=== PATIENT | male | born 1970 | race Caucasian/White ===

== ENCOUNTER 2017-11-28 19:58 | Emergency (ER) | payer MEDICARE, OTHER ==
[~2017-11-28] VITALS: Ht 182.9 cm; Wt 104.3 kg
[2017-11-28] MEDS ORDERED: GABAPENTIN300 MG PO (20:14)
[2017-11-28] MEDS ORDERED: LOSARTAN POTASS50 MG PO (20:14)
[2017-11-28] MEDS ORDERED: ATORVASTATIN CA40 MG PO (20:14)
[2017-11-28] MEDS ORDERED: METOPROLOL TAR100 MG PO (20:15)
[2017-11-28] MEDS ORDERED: HYDROCHLOROTH12.5 M1 PO (20:16)
[2017-11-28] MEDS ORDERED: SENSIPAR30 MG PO (20:16)
[2017-11-28] MEDS ORDERED: CLOPIDOGREL75 MG PO (20:16)
[2017-11-28] MEDS ORDERED: LEVOTHYROXINE112 MCG PO (20:16)
[2017-11-28] MEDS ORDERED: MYCOPHENOLATE PO (20:18)
[2017-11-28] MEDS ORDERED: PROGRAF1 MG PO (20:19)
[2017-11-28] MEDS ORDERED: SLOW-MAG71.5 MG PO (20:20)
== END 2017-11-28 20:59 | disposition home or self-care (01) ==
LOC: ED 19:58
DX: R60.0 Localized edema (principal); Z87.891 Personal history of nicotine dependence; Z88.0 Allergy status to penicillin; Z88.8 Allergy status to other drugs, medicaments and biological substances; E11.42 Type 2 diabetes mellitus with diabetic polyneuropathy; Z79.899 Other long term (current) drug therapy
CPT/HCPCS: 93971; 99283

== ENCOUNTER 2019-10-28 15:09 | Emergency (ER) | payer MEDICARE, OTHER ==
[~2019-10-28] VITALS: Ht 182.9 cm; Wt 104.3 kg
--- OUTSIDE RECORDS SUMMARY | ~2019-10-28 | XMS | Encounter Summary ---
Demographics + + + | Address | [address] | | | [place] [address] | + + + | Home Phone | | + + + | Preferred Language | Unknown | + + + | Marital Status | | + + + | Faith Affiliation | 1013 | + + + | Race | Unknown | + + + | Ethnic Group | Unknown | + + + Author + + + | Author | [facility] | | | and [place] | + + + | Organization | [facility] | | | and [place] | + + + | Address | Unknown | + + + | Phone | Unavailable | + + + Support + + + + + | Name | Relationship | Address | Phone | + + + + + | Deysi Montelongo | ECON | [address] | | | | | [address] | | | | | [address] | | + + + + + | Ellen Rogers | ECON | [address] | | | | | [place] | | + + + + + | Gisell Rogers | ECON | Unknown | | + + + + + Care Team Providers + +------+ + | Care Analog Ic Design Engineer Name | Role | Phone | + +------+ + | Lizbet Sellers MD | PCP | | + +------+ + Encounter Details +--------+ + + + + | Date | Type | Department | Care Team | Description | +--------+ + + + + | 06/12/ | Orders Only | [facility] | Conversion | | | 2019 | | NEPHROLOGY [place] | Transaction, | | | | | [address] [facility] | Provider Unknown | | | | | [address] [place], [place] | | | | | | [address] | (Fax) | | | | | [phone] | | | +--------+ + + + + Social History + + + +--------+ + | Tobacco Use | Types | Packs/Day | Years | Date | | | | | Used | | + + + +--------+ + | Former Smoker | Cigarettes | | 25 | Quit: 04/23/2011 | + + + +--------+ + + +------+---+ + | Smokeless Tobacco: | Chew | | Quit: | | Former User | | | 04/23/19 | | | | | 02 | + +------+---+ + + + +---------+ + | Alcohol Use | Drinks/Week | oz/Week | Comments | + + +---------+ + | No | | | | + + +---------+ + + + + | Sex Assigned at | Date Recorded | | | | + + + | Not on file | | + + + documented as of this encounter Plan of Treatment +--------+---------+ + + + | Date | Type | Specialty | Care Team | Description | +--------+---------+ + + + | 01/04/ | Office | Nephrology | Jaren Pelayo MD | | | 2020 | Visit | | [address] [facility] | | | | | | [address] [facility] [place] | | | | | | [address] | | | | | | | | +--------+---------+ + + + documented as of this encounter Procedures + +--------+ + + + | Procedure Name | Priori | Date/Time | Associated Diagnosis | Comments | | | ty | | | | + +--------+ + + + | EXTERNAL LAB: | Routin | 06/12/2018 | | Results for this | | TACROLIMUS LEVEL, | e | 11:10 AM | | procedure are in the | | LC-MS/MS | | PST | | results section. | + +--------+ + + + | EXTERNAL LAB: CBC | Routin | 06/12/2018 | | Results for this | | | e | 11:10 AM | | procedure are in the | | | | PST | | results section. | + +--------+ + + + | PARATHYROID HORMONE, | Routin | 06/12/2018 | | Results for this | | INTACT | e | 11:10 AM | | procedure are in the | | | | PST | | results section. | + +--------+ + + + | MAGNESIUM | Routin | 06/12/2018 | | Results for this | | | e | 11:10 AM | | procedure are in the | | | | PST | | results section. | + +--------+ + + + | RENAL FUNCTION PANEL | Routin | 06/12/2018 | | Results for this | | | e | 11:10 AM | | procedure are in the | | | | PST | | results section. | + +--------+ + + + documented in this encounter Results External Lab: Tacrolimus Level, LC-MS/MS (06/12/2018 11:10 AM PST) + +-------+ + + + | Component | Value | Ref Range | Performed | Pathologist | | | | | At | Signature | + +-------+ + + + | Tacrolimus | 6.2 | | EXTERNAL | | | Level | | | LAB | | + +-------+ + + + | Date of | | | EXTERNAL | | | Last Dose | | | LAB | | + +-------+ + + + | Time of | | | EXTERNAL | | | Last Dose | | | LAB | | + +-------+ + + + + + | Specimen | + + | Blood specimen | | (specimen) | + + + +---------+ + + | Performing | Address | City/State/Zipcode | Phone Number | | Organization | | | | + +---------+ + + | EXTERNAL LAB | | | | + +---------+ + + External Lab: CBC (06/12/2018 11:10 AM PST) + +--------+ + + + | Component | Value | Ref Range | Performed | Pathologist | | | | | At | Signature | + +--------+ + + + | WBC | 6.9 | 4.5 - 11.0 10 | EXTERNAL | | | | | | LAB | | + +--------+ + + + | Non- | 4.83 | 4.3 - 5.7 10 | EXTERNAL | | | Red Blood | | | LAB | | | Cells | | | | | | Counted | | | | | + +--------+ + + + | Hemoglobin | 14.1 | 13.5 - 18.0 | EXTERNAL | | | | | g/dL | LAB | | + +--------+ + + + | Hematocrit, | 43.8 | 41 - 50 % | EXTERNAL | | | POC | | | LAB | | + +--------+ + + + | MCV | 90.7 | 81 - 99 fL | EXTERNAL | | | | | | LAB | | + +--------+ + + + | MCH | 29 | 27 - 33 pg | EXTERNAL | | | | | | LAB | | + +--------+ + + + | MCHC | 32 | 30 - 36 g/dL | EXTERNAL | | | | | | LAB | | + +--------+ + + + | Platelet | 360 | 140 - 440 K/ L | EXTERNAL | | | Count | | | LAB | | | Plasma | | | | | + +--------+ + + + | RDW-CV | 13.7 | 10.5 - 15.0 % | EXTERNAL | | | | | | LAB | | + +--------+ + + + | MPV | | fL | EXTERNAL | | | | | | LAB | | + +--------+ + + + | Differentia | | | EXTERNAL | | | l Type | | | LAB | | + +--------+ + + + | % Segmented | 67 | 39 - 80 % | EXTERNAL | | | | | | LAB | | | Neutrophils | | | | | + +--------+ + + + | % | 21 (A) | 24 - 44 % | EXTERNAL | | | Lymphocytes | | | LAB | | + +--------+ + + + | % Monocytes | 10 | 0 - 12 % | EXTERNAL | | | | | | LAB | | + +--------+ + + + | % | 2 | 0 - 6 % | EXTERNAL | | | Eosinophils | | | LAB | | + +--------+ + + + | % Basophils | 0 | 0 - 2 % | EXTERNAL | | | | | | LAB | | + +--------+ + + + | Absolute | | / L | EXTERNAL | | | Segmented | | | LAB | | | Neutrophils | | | | | + +--------+ + + + | Absolute | | / L | EXTERNAL | | | Lymphocytes | | | LAB | | + +--------+ + + + | Absolute | | / L | EXTERNAL | | | Monocytes | | | LAB | | + +--------+ + + + | Absolute | | / L | EXTERNAL | | | Eosinophils | | | LAB | | + +--------+ + + + | Absolute | | / L | EXTERNAL | | | Basophils | | | LAB | | + +--------+ + + + + + | Specimen | + + | Blood specimen | | (specimen) | + + + +---------+ + + | Performing | Address | City/State/Zipcode | Phone Number | | Organization | | | | + +---------+ + + | EXTERNAL LAB | | | | + +---------+ + + Parathyroid Hormone, Intact (06/12/2018 11:10 AM PST) + + + + + + | Component | Value | Ref Range | Performed | Pathologist | | | | | At | Signature | + + + + + + | PTH INTACT | 93.37 (A) | 15 - 65 pg/mL | EXTERNAL | | | | | | LAB | | + + + + + + + + | Specimen | + + | Blood specimen | | (specimen) | + + + +---------+ + + | Performing | Address | City/State/Zipcode | Phone Number | | Organization | | | | + +---------+ + + | EXTERNAL LAB | | | | + +---------+ + + Magnesium (06/12/2018 11:10 AM PST) + +---------+ + + + | Component | Value | Ref Range | Performed | Pathologist | | | | | At | Signature | + +---------+ + + + | Magnesium | 1.4 (A) | 1.7 - 2.5 mg/dL | EXTERNAL | | | | | | LAB | | + +---------+ + + + + + | Specimen | + + | Blood specimen | | (specimen) | + + + +---------+ + + | Performing | Address | City/State/Zipcode | Phone Number | | Organization | | | | + +---------+ + + | EXTERNAL LAB | | | | + +---------+ + + Renal Function Panel (06/12/2018 11:10 AM PST) + + + + + + | Component | Value | Ref Range | Performed | Pathologist | | | | | At | Signature | + + + + + + | Glucose, | 184 (A) | 70 - 100 mg/dL | EXTERNAL | | | Fasting | | | LAB | | + + + + + + | BUN | 18 | 6 - 23 mg/dL | EXTERNAL | | | | | | LAB | | + + + + + + | Creatinine | 1.39 (A) | 0.60 - 1.35 | EXTERNAL | | | | | mg/dL | LAB | | + + + + + + | PHOSPHORUS | 3.6 | 2.5 - 5.0 mg/dL | EXTERNAL | | | | | | LAB | | + + + + + + | Albumin | 4.1 | 3.5 - 5.0 | EXTERNAL | | | | | | LAB | | + + + + + + | Na | 138 | 132 - 143 | EXTERNAL | | | | | mmol/L | LAB | | + + + + + + | K | 4.4 | 3.6 - 5.1 | EXTERNAL | | | | | mmol/L | LAB | | + + + + + + | Cl | 102 | 95 - 112 mmol/L | EXTERNAL | | | | | | LAB | | + + + + + + | CO2 | 26 | 19 - 31 mmol/L | EXTERNAL | | | | | | LAB | | + + + + + + | Anion Gap | 14.4 | 7 - 21 mmol/L | EXTERNAL | | | | | | LAB | | + + + + + + | eGFR if not | | | EXTERNAL | | | | | | LAB | | | QATARI | | | | | + + + + + + | Phosphorus, | | | EXTERNAL | | | Inorganic | | | LAB | | + + + + + + | BUN/Creatin | 12.9 | 6.0 - 28.6 | EXTERNAL | | | ine Ratio | | | LAB | | + + + + + + | Calcium | 8.9 | 8.5 - 10.3 | EXTERNAL | | | | | mg/dL | LAB | | + + + + + + | Estimated | 55 (A) | 60 - 140 mg/dL | EXTERNAL | | | GFR | | | LAB | | + + + + + + + + | Specimen | + + | Blood specimen | | (specimen) | + + + +---------+ + + | Performing | Address | City/State/Zipcode | Phone Number | | Organization | | | | + +---------+ + + | EXTERNAL LAB | | | | + +---------+ + + documented in this encounter Visit Diagnoses Not on filedocumented in this encounter"
--- OUTSIDE RECORDS SUMMARY | ~2019-10-28 | XMS | Encounter Summary ---
Demographics + + + | Address | [address] | | | [place] [address] | + + + | Home Phone | | + + + | Preferred Language | Unknown | + + + | Marital Status | | + + + | Worship Affiliation | 1013 | + + + | Race | Unknown | + + + | Ethnic Group | Unknown | + + + Author + + + | Author | [facility] | | | and [place] | + + + | Organization | [facility] | | | and [place] | + + + | Address | Unknown | + + + | Phone | Unavailable | + + + Support + + + + + | Name | Relationship | Address | Phone | + + + + + | Deysi Montelongo | ECON | [address] | | | | | [place] | | | | | [address] | | + + + + + | Ellen Greer | ECON | [address] | | | | | [place] | | + + + + + | Gisell Greer | ECON | Unknown | | + + + + + Care Team Providers + +------+ + | Care Director Hardware Name | Role | Phone | + +------+ + PCP | Unavailable | + +------+ + Encounter Details +--------+ + + + + | Date | Type | Department | Care Team | Description | +--------+ + + + + | 01/18/ | Hospital | [facility] | Litzy Ramirez, | End Stage Renal | | 2008 | Encounter | [facility] | MD [address] | Disease (HCC) | | | | CLINICAL DECISION | [address] | | | | | [address] | [place] [address] | | | | | [place], [place] | [phone] | | | | | [address] | | | | | | [phone] | | | +--------+ + + + + Social History + +-------+ +--------+------+ | Tobacco Use | Types | Packs/Day | Years | Date | | | | | Used | | + +-------+ +--------+------+ | Never Assessed | | | | | + +-------+ +--------+------+ + + + | Sex Assigned at | Date Recorded | | | | + + + | Not on file | | + + + documented as of this encounter Medications at Time of Discharge + + + +---------+ + + | Medication | Sig | Dispensed | Refills | Start | End Date | | | | | | Date | | + + + +---------+ + + | promethazine | Take 1 Tab by mouth | | 0 | 12/30/19 | | | (PHENERGAN) 25 mg | four times daily as | | | 09 | 9 | | tablet | needed for | | | | | | | nausea/vomiting. | | | | | + + + +---------+ + + documented as of this encounter Plan of Treatment +--------+---------+ + + + | Date | Type | Specialty | Care Team | Description | +--------+---------+ + + + | 01/04/ | Office | Nephrology | Jaren Pelayo MD | | | 2020 | Visit | | [address] [facility] | | | | | | [address] [place] | | | | | | [address] | | | | | | | | +--------+---------+ + + + documented as of this encounter Procedures + +--------+ + + + | Procedure Name | Priori | Date/Time | Associated Diagnosis | Comments | | | ty | | | | + +--------+ + + + | XR CHEST 2 VIEWS | Routin | 01/14/2009 | | Results for this | | | e | 4:51 PM | | procedure are in the | | | | PDT | | results section. | + +--------+ + + + documented in this encounter Results XR Chest 2 Vws (01/14/2009 4:51 PM PDT) + + | Specimen | + + | | + + + + + | Narrative | Performed At | + + + | [id number] | | | Page 1 RADIOLOGY | | | / | | | PRO [facility] | | | NAME: [place] [address] | | | | | | | | | DATE OF : 1970 ORDER NUMBER: [id number] EXAM | | | DATE/TIME: 01/14/2009 03:38 P ORDERING PHYSICIAN: LAKSHMI | | | NADER ORDER DETAIL: 7000 / / HDI EXAM DESCRIPTION: XR CHEST 2 | | | VIEW | | | | | | 2-VIEW CHEST 01/14/2009 HISTORY Preoperative study. TECHNIQUE | | | Two views of the chest were obtained. COMPARISON 24 Aug 2008. | | | FINDINGS Dual-lumen right IJ catheter. No pneumothorax or evidence | | | of adverse sequela. The catheter terminates at the cavoatrial | | | junction. Lungs are symmetrically inflated. There is no | | | pneumothorax or effusion. The cardiomediastinum is normal in size and | | | configuration. The skeleton is normal and demonstrates some minimal | | | degenerative changes about the thoracic spine. IMPRESSION No | | | clear acute or active process to correlate with the patient's | | | symptoms. Read by HARVINDER VELÁSQUEZ MD 01/14/2009 06:07 P | | | Electronically Signed by HARVINDER VELÁSQUEZ MD 01/16/2009 07:35 A | | | P A | | | ESTELLE/[email or web address]/[id number]/ cc: MD HARVINDER VEGA | | | MD DIDIER | | + + + + + | Procedure Note | + + | Luke, Rad Conversion - 12/16/2018 5:06 AM PDT | | [id number] Page 1 | | RADIOLOGY / | | PRO | | [facility] NAME: [address] | | [place] [address] | | | | DATE OF : 1970 | | | | ORDER NUMBER: [id number] | | EXAM DATE/TIME: 01/14/2009 03:38 P | | ORDERING PHYSICIAN: NADER MARTINS | | ORDER DETAIL: 7000 / / HDI | | EXAM DESCRIPTION: XR CHEST 2 VIEW | | | | 2-VIEW CHEST 01/14/2009 | | | | HISTORY | | Preoperative study. | | | | TECHNIQUE | | Two views of the chest were obtained. | | | | COMPARISON | | 24 Aug 2008. | | | | FINDINGS | | Dual-lumen right IJ catheter. No pneumothorax or evidence of adverse | | sequela. The catheter terminates at the cavoatrial junction. | | | | Lungs are symmetrically inflated. There is no pneumothorax or effusion. | | The cardiomediastinum is normal in size and configuration. The skeleton | | is normal and demonstrates some minimal degenerative changes about the | | thoracic spine. | | | | IMPRESSION | | No clear acute or active process to correlate with the patient's | | symptoms. | | | | | | | | Read by | | HARVINDER VELÁSQUEZ MD 01/14/2009 06:07 P | | Electronically Signed by | | HARVINDER VELÁSQUEZ MD 01/16/2009 07:35 A | | | | P | | A | | ESTELLE/[email or web address]/[id number]/ | | cc: NADER MARTINS MD | | HARVINDER VELÁSQUEZ MD | + + documented in this encounter Visit Diagnoses + + | Diagnosis | + + | End stage renal disease (HCC) End stage renal disease | + + documented in this encounter"
--- OUTSIDE RECORDS SUMMARY | ~2019-10-28 | XMS | Encounter Summary ---
Demographics + + + | Address | [address] | | | [place] [address] | + + + | Home Phone | | + + + | Preferred Language | Unknown | + + + | Marital Status | Single | + + + | Islam Affiliation | CHR | + + + | Race | White | + + + | Ethnic Group | Not or | + + + Author + + + | Author | [facility] | + + + | Organization | [facility] | + + + | Address | Unknown | + + + | Phone | Unavailable | + + + Support + + + + + | Name | Relationship | Address | Phone | + + + + + | Krissy Rogers | BRADEN | [place] [address] | | + + + + + | Bay Rogers | ECON | Unknown | | + + + + + Care Team Providers + +------+ + | Care Upholstery Auto Trimmer Name | Role | Phone | + +------+ + | Jono Arambula | PCP | | + +------+ + Reason for Visit + + + | Reason | Comments | + + + | Appointment | patient had a stroke | | Cancelled By Patient | | + + + Encounter Details +--------+ + + + + | Date | Type | Department | Care Team | Description | +--------+ + + + + | 12/21/ | Telephone | [facility] | Maria Elena Lieberman, | Appointment | | 2008 | | [facility] at | [address] | Cancelled By Patient | | | | [address]abel[address] | [address] | (patient had a | | | | [address] | [place], [place] | stroke) | | | | [facility] | [address] | | | | | [place], [place] | [phone] | | | | | [address] | | | +--------+ + + + [...] on file | | + + + + + + + | Job Start Date | Occupation | Industry | + + + + | Not on file | Not on file | Not on file | + + + + + + + + | Travel History | Travel Start | Travel End | + + + + + + | No recent travel history available. | + + documented as of this encounter Plan of Treatment +--------+---------+ + + + | Date | Type | Specialty | Care Team | Description | +--------+---------+ + + + | 01/26/ | Office | Ophthalmology | Maria Elena Lieberman, | | | 2019 | Visit | | [address] | | | | | [address] | | | | | | [place], [place] | | | | | | [address] | | | | | | [phone] | | | | | | | | +--------+---------+ + + + documented as of this encounter Visit Diagnoses Not on filedocumented in this encounter"
--- OUTSIDE RECORDS SUMMARY | ~2019-10-28 | XMS | Encounter Summary ---
Demographics + + + | Address | [address] | | | [place] [address] | + + + | Home Phone | | + + + | Preferred Language | Unknown | + + + | Marital Status | | + + + | Church Affiliation | 1013 | + + + | Race | Unknown | + + + | Ethnic Group | Unknown | + + + Author + + + | Author | [facility] | | | and [place] | + + + | Organization | [facility] | | | and [...] [address] [place] | | | | | [address] | | + + + + + | Ellen Rogers | ECON | [address] | | | | | [place] | | + + + + + | Gisell Rogers | ECON | Unknown | | + + + + + Care Team Providers + +------+ + | Care Supervisor Offset Plate Preparation Name | Role | Phone | + +------+ + | Lizbet Sellers MD | PCP | | + +------+ + Encounter Details +--------+ + + + + | Date | Type | Department | Care Team | Description | +--------+ + + + + | 01/04/ | Orders Only | [facility] | Conversion | | | 2015 | | NEPRHOLOGY [place] | Transaction, | | | | | [address] | Provider Unknown | | | | | [address] [place], [place] | [phone] | | | | | [address] | | | | | | [phone] | | | +--------+ + + + + Social History + +-------+ +--------+------+ | Tobacco Use | Types | Packs/Day | Years | Date | | | | | Used | | + +-------+ +--------+------+ | Former Smoker | | | | | + +-------+ +--------+------+ + +---+---+---+ | Smokeless Tobacco: | | | | | Former User | | | | + +---+---+---+ + + +---------+ + | Alcohol Use [...] | Jaren Pelayo MD | | | 2019 | Visit | | [address] [facility] | | | | | | [address] [place] | | | | | | [address] | | | | | | | | +--------+---------+ + + + documented as of this encounter Procedures + +--------+ + + + | Procedure Name | Priori | Date/Time | Associated Diagnosis | Comments | | | ty | | | | + +--------+ + + + | EXTERNAL LAB: | Routin | 01/05/2016 | | Results for this | | TACROLIMUS LEVEL, | e | 12:00 AM | | procedure are in the | | LC-MS/MS | | PDT | | results section. | + +--------+ + + + documented in this encounter Results External Lab: Tacrolimus Level, LC-MS/MS (01/05/2016 12:00 AM PDT) + +-------+ + + + | Component | Value | Ref Range | Performed | Pathologist | | | | | At | Signature | + +-------+ + + + | Tacrolimus | 5.0 | | EXTERNAL | | | Level [...]
--- OUTSIDE RECORDS SUMMARY | ~2019-10-28 | XMS | Encounter Summary ---
Demographics + + + | Address | [address] | | | [place] [address] | + + + | Home Phone | | + + + | Preferred Language | Unknown | + + + | Marital Status | | + + + | Mandaen Affiliation | 1013 | + + + | Race | Unknown | + + + | Ethnic Group | Unknown | + + + Author + + + | Author | [facility] | | | and [place] | + + + | Organization | [facility] | | [...] [place] | | | | | [address] | | + + + + + | Ellen Rogers | ECON | [address] | | | | | [place] | | + + + + + | Gisell Rogers | ECON | Unknown | | + + + + + Care Team Providers + +------+ + | Care Flake Or Shred Roll Operator Name | Role | Phone | + +------+ + PCP | Unavailable | + +------+ + Encounter Details +--------+ + + + + | Date | Type | Department | Care Team | Description | +--------+ + + + + | 12/15/ | Hospital | [facility] | Ashley De Dios | | | 2008 - | Encounter | MED CTR GENERIC IP | M, DO [address] | | | | | CONV DEPT [address] [place] | | | 12/17/ | | [place], | [place] [address] | | | 2008 | | [place] [address] | [phone] | | | | | [phone] | | | | | | | Yung Morfin P, | | | | | | MD [address] | | | | | | [place], [place] | | | | | | [phone] | | | | | | | | +--------+ + + + [...] 2020 | Visit | | [address] [facility] | | | | | | [address] [place] | | | | | | [address] | | | | | | | | +--------+---------+ + + + documented as of this encounter Visit Diagnoses Not on filedocumented in this encounter"
--- OUTSIDE RECORDS SUMMARY | ~2019-10-28 | XMS | Encounter Summary ---
Demographics + + + | Address | [address] | | | [place] [address] | + + + | Home Phone | | + + + | Preferred Language | Unknown | + + + | Marital Status | Single | + + + | Sabianist Affiliation | CHR | + + + | Race | White | + + + | Ethnic Group | Not or | + + + Author + + + | Author | [facility] | + + + | Organization | [facility] | + + + | Address | Unknown | + + + | Phone | Unavailable | + + + Support + + + + + | Name | Relationship | Address | Phone | + + + + + | Krissy Rogers | BRADEN | [place] [address] | | + + + + + | Bay Rogers | ECON | Unknown | | + + + + + Care Team Providers + +------+ + | Care Desktop Specialist Name | Role | Phone | + +------+ + | Berna Keyes MD | PCP | | + +------+ + Reason for Visit + + + | Reason | Comments | + + + | MRI Results | mri report reviewed | + + + Encounter Details +--------+ + + + + | Date | Type | Department | Care Team | Description | +--------+ + + + + | 09/21/ | Documentati | [facility] | Maria Elena Lieberman, | MRI Results (mri | | 2008 | on | [facility] at | [address] | report reviewed) | | | | Annabelle [place] [address] | [address] | | | | | [address] | [place], [place] | | | | | [facility] | [address] | | | | | [place], [place] | [phone] | | | | | [address] | [...] | Maria Elena Lieberman, | | | 2020 | Visit | | [address] | | | | | | [address] | | | | | | [place] | | | | | | [address] | | | | | | [phone] | | | | | | | | +--------+---------+ + + + documented as of this encounter Visit Diagnoses Not on filedocumented in this encounter"
--- OUTSIDE RECORDS SUMMARY | ~2019-10-28 | XMS | Encounter Summary ---
Demographics + + + | Address | [address] | | | [place] [address] | + + + | Home Phone | | + + + | Preferred Language | Unknown | + + + | Marital Status | | + + + | Sikh Affiliation | 1013 | + + + | Race | Unknown | + + + | Ethnic Group | Unknown | + + + Author + + + | Author | [facility] | | | and [place] | + + + | Organization | [facility]erg[facility] With [facility] | | | [...] [address] | | | | | [address] | | + + + + + | Ellen Rogers | ECON | [address] | | | | | [place] | | + + + + + | Gisell Rogers | ECON | Unknown | | + + + + + Care Team Providers + +------+ + | Care Senior Procurement Manager Name | Role | Phone | + +------+ + | Lizbet Sellers MD | PCP | | + +------+ + Encounter Details +--------+ + + + + | Date | Type | Department | Care Team | Description | +--------+ + + + + | 04/05/ | Orders Only | [facility] | Jaren Pelayo MD | | | 2014 | | NEPHROLOGY [place] | [address] [place] | | | | | [address] [place] | [address] [place], [place] | | | | | [address] [place], [place] | [id number] | | | | | [address] | | | | | | [phone] | | | +--------+ + + + [...] 2020 | Visit | | [address] [facility] | | | | | | [address] [place] | | | | | | [address] | | | | | | | | +--------+---------+ + + + documented as of this encounter Procedures + +--------+ + + + | Procedure Name | Priori | Date/Time | Associated Diagnosis | Comments | | | ty | | | | + +--------+ + + + | EXTERNAL LAB: | Routin | 04/05/2015 | | Results for this | | TACROLIMUS LEVEL, | e | 12:00 AM | | procedure are in the | | LC-MS/MS | | PST | | results section. | + +--------+ + + + | EXTERNAL LAB: CBC | Routin | 04/05/2015 | | Results for this | | | e | 12:00 AM | | procedure are in the | | | | PST | | results section. | + +--------+ + + + | URINALYSIS WITH | Routin | 04/05/2015 | | Results for this | | MICROSCOPIC IF | e | 12:00 AM | | procedure are in the | | INDICATED | | PST | | results section. | + +--------+ + + + | PARATHYROID HORMONE, | Routin | 04/05/2015 | | Results for this | | INTACT AND CALCIUM | e | 12:00 AM | | procedure are in the | | | | PST | | results section. | + +--------+ + + + | PROTEIN/CREATININE | Routin | 04/05/2015 | | Results for this | | RATIO, URINE | e | 12:00 AM | | procedure are in the | | | | PST | | results section. | + +--------+ + + + | BK VIRUS, NAAT, | Routin | 04/05/2015 | | Results for this | | URINE, QUANT | e | 12:00 AM | | procedure are in the | | | | PST | | results section. | + +--------+ + + + | MAGNESIUM | Routin | 04/05/2015 | | Results for this | | | e | 12:00 AM | | procedure are in the | | | | PST | | results section. | + +--------+ + + + | RENAL FUNCTION PANEL | Routin | 04/05/2015 | | Results for this | | | e | 12:00 AM | | procedure are in the | | | | PST | | results section. | + +--------+ + + + documented in this encounter Results External Lab: Tacrolimus Level, LC-MS/MS (04/05/2015 12:00 AM PST) + +-------+ + + + | Component | Value | Ref Range | Performed | Pathologist | | | | | At | Signature | + +-------+ + + + | Tacrolimus | 7.4 | | EXTERNAL | | | Level [...] + +---------+ + + Parathyroid Hormone, Intact and Calcium (04/05/2015 12:00 AM PST) + +-------+ + + + | Component | Value | Ref Range | Performed | Pathologist | | | | | At | Signature | + +-------+ + + + | PTH Intact | 45.52 | 15 - 65 | EXTERNAL | | | | | | LAB | | + +-------+ + + + | Calcium | 9.3 | 8.4 - 10.2 | EXTERNAL | | | | | [...] | | | + +---------+ + + Protein/Creatinine Ratio, Urine (04/05/2015 12:00 AM PST) + +-------+ + + + | Component | Value | Ref Range | Performed | Pathologist | | | | | At | Signature | + +-------+ + + + | Protein/Cre | 41.7 | 0 - 150 | EXTERNAL | | | at Ratio | | | LAB | | + +-------+ + + + + + | Specimen | + + | Urine specimen | | (specimen) | + + + +---------+ + + | Performing | Address | City/State/Zipcode | Phone Number | | Organization | | | | + +---------+ + + | EXTERNAL LAB | | | | + +---------+ + + BK Virus, NAAT, Urine, Quant (04/05/2015 12:00 AM PST) + + | Specimen | + + | Urine specimen | | (specimen) | + + + + + | Impressions | Performed At | + + + | NONE DETECTED | EXTERNAL LAB | + + + + +---------+ + + | Performing | Address | City/State/Zipcode | Phone Number | | Organization | | | | + +---------+ + + | EXTERNAL LAB | | | | + +---------+ + + Urinalysis with Microscopic if Indicated (04/05/2015 12:00 AM PST) + + + + + + | Component | Value | Ref Range | Performed | Pathologist | | | | | At | Signature | + + + + + + | Color | Yellow | | EXTERNAL | | | | | | LAB | | + + + + + + | Clarity, | Clear | | EXTERNAL | | | Urine | | | LAB | | + + + + + + | Spec Grav, | 1.023 | 1.005 - 1.030 | EXTERNAL | | | Fluid | | | LAB | | + + + + + + | Leukocyte | Negative | | EXTERNAL | | | Esterase, | | | LAB | | | Urine | | | | | + + + + + + | Nitrite, | Negative | | EXTERNAL | | | Urine | | | LAB | | + + + + + + | Urobilinoge | Normal | | EXTERNAL | | | n, Urine | | | LAB | | + + + + + + | Total | Negative | | EXTERNAL | | | Protein | | | LAB | | + + + + + + | pH, Urine | 5 | 5 - 9 | EXTERNAL | | | | | | LAB | | + + + + + + | Blood, | Negative | | EXTERNAL | | | Urine | | | LAB | | + + + + + + | Ketones | Negative | | EXTERNAL | | | | | | LAB | | + + + + + + | Bilirubin, | Negative | | EXTERNAL | | | Urine | | | LAB | | + + + + + + | Glucose, | 4+Comment: 1000 | | EXTERNAL | | | Urine | | | LAB | | + + + + + + + + | Specimen | + + | Urine specimen | | (specimen) | + + + +---------+ + + | Performing | Address | City/State/Zipcode | Phone Number | | Organization | | | | + +---------+ + + | EXTERNAL LAB | | | | + +---------+ + + External Lab: CBC (04/05/2015 12:00 AM PST) + + + + + + | Component | Value | Ref Range | Performed | Pathologist | | | | | At | Signature | + + + + + + | WBC | 8.0 | 4.5 - 11.0 10 | EXTERNAL | | | | | | LAB | | + + + + + + | Non- | 4.71 | 4.3 - 5.7 10 | EXTERNAL | | | Red Blood | | | LAB | | | Cells | | | | | | Counted | | | | | + + + + + + | Hemoglobin | 14.0 | 13.5 - 18.0 | EXTERNAL | | | | | g/dL | LAB | | + + + + + + | Hematocrit, | 42.9 | 41 - 50 % | EXTERNAL | | | POC | | | LAB | | + + + + + + | MCV | 91.2 | 81 - 99 fL | EXTERNAL | | | | | | LAB | | + + + + + + | MCH | 30 | 27 - 33 pg | EXTERNAL | | | | | | LAB | | + + + + + + | MCHC | 33 | 30 - 36 g/dL | EXTERNAL | | | | | | LAB | | + + + + + + | Platelet | 395 | 140 - 440 K/ L | EXTERNAL | | | Count | | | LAB | | | Plasma | | | | | + + + + + + | RDW-CV | 13.8 | 10.5 - 15.0 % | EXTERNAL | | | | | | LAB | | + + + + + + | MPV | | fL | EXTERNAL | | | | | | LAB | | + + + + + + | Differentia | Auto | | EXTERNAL | | | l Type | | | LAB | | + + + + + + | % Segmented | 72.3 | 39 - 80 % | EXTERNAL | | | | | | LAB | | | Neutrophils | | | | | + + + + + + | % | 12.1 (A) | 24 - 44 % | EXTERNAL | | | Lymphocytes | | | LAB | | + + + + + + | % Monocytes | 12.2 (A) | 0 - 12 % | EXTERNAL | | | | | | LAB | | + + + + + + | % | 2.6 | 0 - 6 % | EXTERNAL | | | Eosinophils | | | LAB | | + + + + + + | % Basophils | 0.8 | 0 - 2 % | EXTERNAL | | | | | | LAB | | + + + + + + | Absolute | | / L | EXTERNAL | | | Segmented | | | LAB | | | Neutrophils | | | | | + + + + + + | Absolute | | / L | EXTERNAL | | | Lymphocytes | | | LAB | | + + + + + + | Absolute | | / L | EXTERNAL | | | Monocytes | | | LAB | | + + + + + + | Absolute | | / L | EXTERNAL | | | Eosinophils | | | LAB | | + + + + + + | Absolute | | [...] | | + +---------+ + + Magnesium (04/05/2015 12:00 AM PST) + +---------+ + + + [...] + +---------+ + + Renal Function Panel (04/05/2015 12:00 AM PST) + + + + + + | Component | Value | Ref Range | Performed | Pathologist | | | | | At | Signature | + + + + + + | Glucose, | 98 | 70 - 100 mg/dL | EXTERNAL | | | Fasting | | | LAB | | + + + + + + | BUN | 21 | 6 - 23 mg/dL | EXTERNAL | | | | | | LAB | | + + + + + + | Creatinine | 1.38 (A) | 0.60 - 1.35 | EXTERNAL | | | | | mg/dL | LAB | | + + + + + + | PHOSPHORUS | | mg/dL | EXTERNAL | | | | | | LAB | | + + + + + + | Albumin | 4.1 | 3.5 - 5.0 | EXTERNAL | | | | | | LAB | | + + + + + + | Na | 137 | 132 - 143 | EXTERNAL | | | | | mmol/L | LAB | | + + + + + + | K | 4.3 | 3.6 - 5.1 | EXTERNAL | | | | | mmol/L | LAB | | + + + + + + | Cl | 102 | 95 - 112 mmol/L | EXTERNAL | | | | | | LAB | | + + + + + + | CO2 | 23 | 19 - 31 mmol/L | EXTERNAL | | | | | | LAB | | + + + + + + | Anion Gap | 16.3 | 7 - 21 mmol/L | EXTERNAL | | | | | | LAB | | + + + + + + | eGFR if not | | | EXTERNAL | | | | | | LAB | | | MALAYSIAN | | | | | + + + + + + | Phosphorus, | 4.8 | 2.5 - 5.0 | EXTERNAL | | | Inorganic | | | LAB | | + + + + + + | BUN/Creatin | 15.2 | 6.0 - 28.6 | EXTERNAL | | | ine Ratio | | | LAB | | + + + + + + | Calcium | 9.3 | 8.4 - 10.2 | EXTERNAL | | | | | mg/dL | LAB | | + + + + + + | Estimated | 56 (A) | 60 - 140 mg/dL | [...]
--- OUTSIDE RECORDS SUMMARY | ~2019-10-28 | XMS | Encounter Summary ---
Demographics + + + | Address | [address] | | | [place] [address] | + + + | Home Phone | | + + + | Preferred Language | Unknown | + + + | Marital Status | Single | + + + | Congregational Affiliation | CHR | + + + | Race | White | + + + | Ethnic Group | Not or | + + + Author + + + | Author | [facility] | + + + | Organization | [facility] | + + + | Address | Unknown | + + + | Phone | Unavailable | + + + Support + + + + + | Name | Relationship | Address | Phone | + + + + + | Krissy Rogers | BRADEN | [place] [address] | | + + + + + | Bay Rogers | ECON | Unknown | | + + + + + Care Team Providers + +------+ + | Care Heel Stainer Name | Role | Phone | + +------+ + | Bola Chaudhry MD | PCP | | + +------+ + Encounter Details +--------+ + + + + | Date | Type | Department | Care Team | Description | +--------+ + + + + | 07/26/ | Ancillary | LAB IMMUNOGENETIC | | | | 2012 | Orders | [facility] | | | | | | [address] | | | | | | [place], | | | | | | [place] [address] | | | +--------+ + + + [...] | | 2019 | Visit | | [address] | | | | | | [address] | | | | | | [place], [place] | | | | | | [address] | | | | | | [phone] | | | | | | | | +--------+---------+ + + + documented as of this encounter Procedures + +--------+ + + + | Procedure Name | Priori | Date/Time | Associated Diagnosis | Comments | | | ty | | | | + +--------+ + + + | LIT FLOW HLA AB PRA | Routin | 07/26/2012 | | | | SCREEN I/II | e | 11:46 AM | | | | | | PDT | | | + +--------+ + + + documented in this encounter Results LIT FLOW HLA AB PRA SCREEN I/II (07/26/2012 11:46 AM PDT) + + | Specimen | + + | Blood - Blood | + + + + + + + | Performing | Address | City/State/Zipcode | Phone Number | | Organization | | | | + + + + + | [facility] - | [address] | [place] [address] | | | IMMUNOGENETICS/TRANS | [address] | | | | [facility] | | | | + + + + + documented in this encounter Visit Diagnoses Not on filedocumented in this encounter"
--- OUTSIDE RECORDS SUMMARY | ~2019-10-28 | XMS | Encounter Summary ---
Demographics + + + | Address | [address] | | | [place] [address] | + + + | Home Phone | | + + + | Preferred Language | Unknown | + + + | Marital Status | | + + + | Sabianist Affiliation | 1013 | + + + [...] [address] | | | | | [place] | | | | | [address] | | + + + + + | Ellen Rogers | ECON | [address] | | | | | [place] | | + + + + + | Gisell Rogers | ECON | Unknown | | + + + + + Care Team Providers + +------+ + | Care Farm Truck Driver Name | Role | Phone | + +------+ + | David Estrada MD | PCP | Unavailable | + +------+ + Reason for Visit +--------+--------+ + | Reason | Onset | Comments | | | Date | | +--------+--------+ + | Other | 10/08/ | | | | 2012 | | +--------+--------+ + Encounter Details +--------+ + + + + | Date | Type | Department | Care Team | Description | +--------+ + + + + | 10/08/ | Telephone | [facility] | [facility], | [facility] | | 2012 | | GASTROENTEROLOGY | NAWAF [address] | | | | | [address] [facility] [address] | | | | | [address] [place] | [place] | | | | | [address] | [id number] | | | | | [phone] | | | +--------+ + + + [...] + + documented as of this encounter Miscellaneous Notes Telephone Encounter - Radha Bejaarno - 10/08/2012 3:18 PM PDTCalled patient he is in [facility] at [facility], he just had a kidney transplant. I told him Dr Cabrera won't see him Due to normal gastric emptying. He said since he just had kidney transplant he is not int erested in seeing any other Dr at this time.Electronically signed by Radha Bejarano at 3:21 PM PDTdocumented in this encounter Plan of Treatment +--------+---------+ + + + | Date | Type | Specialty | Care Team | Description | +--------+---------+ + + + | 01/04/ | Office | Nephrology | Jaren Pelayo MD | | | 2019 | Visit | | [address] [facility] | | | | | | [address] [place], [place] | | | | | | [address] | | | | | | | | +--------+---------+ + + + documented as of this encounter Visit Diagnoses Not on filedocumented in this encounter"
--- OUTSIDE RECORDS SUMMARY | ~2019-10-28 | XMS | Encounter Summary ---
Demographics + + + | Address | [address] | | | [place] [address] | + + + | Home Phone | | + + + | Preferred Language | Unknown | + + + | Marital Status | Single | + + + | Mandaeism Affiliation | CHR | + + + | Race | White | + + + | Ethnic Group | Not or | + + + Author + + + | Author | [facility] | + + + | Organization | [facility] | + + + | Address | Unknown | + + + | Phone | Unavailable | + + + Support + + + + + | Name | Relationship | Address | Phone | + + + + + | Krissy Rogers | BRADEN | [place] [address] | | + + + + + | Bay Rogers | ECON | Unknown | | + + + + + Care Team Providers + +------+ + | Care Chemicals Distiller Name | Role | Phone | + +------+ + | Berna Keyes MD | PCP | | + +------+ + Reason for Visit + + + | Reason | Comments | + + + | Discharge from eye | | + + + Encounter Details +--------+ + + + + | Date | Type | Department | Care Team | Description | +--------+ + + + + | 09/18/ | Telephone | [facility] | Sami Celis MD | Discharge from eye | | 2008 | | [facility] at | [address] | | | | | [facility] [address] | [place], [place] | | | | | [address] | [address] | | | | | Eye [place] | | | | | | [place], [place] | | | | | | [phone] | | | +--------+ + + + [...] | 2019 | Visit | | [address] | | | | | | [address] | | | | | | [place] | | | | | | [address] | | | | | | [phone] | | | | | | | | +--------+---------+ + + + documented as of this encounter Visit Diagnoses Not on filedocumented in this encounter"
--- OUTSIDE RECORDS SUMMARY | ~2019-10-28 | XMS | Encounter Summary ---
Demographics + + + | Address | [address] | | | [place] [address] | + + + | Home Phone [...] Author + + + | Author | [facility] | + + + | Organization | [facility] | + + + | Address | Unknown | + + + | Phone | Unavailable | + + + Support + + + + + | Name | Relationship | Address | Phone | + + + + + | Krissy Rogers | BRADEN | [place] [address] | | + + + + + | Bay Rogers | ECON | Unknown | | + + + + + Care Team Providers + +------+ + | Care Framing Mechanic Name | Role | Phone | + +------+ + | Jono Arambula | PCP | | + +------+ + Reason for Visit +---------+ + | Reason | Comments | +---------+ + | Post Op | PPV/LELAO OS on 10/21/2008 - pt stable and here as directed for | | | follow up. | +---------+ + Encounter Details +--------+---------+ + + + | Date | Type | Department | Care Team | Description | +--------+---------+ + + + | 12/03/ | Office | [facility] | Maria Elena Lieberman, | DM Eye Manif Type | | 2008 | Visit | [facility] at | [address] | II, Uncontrolled | | | | [address] | [address] | ([facility]) (Primary Dx); | | | | [address] | [place], [place] | Unspecified Retinal | | | | Eye [place] | [address] | Detachment; | | | | floor [place], [place] | [phone] | Proliferative | | | | [address] | | Diabetic Retinopathy | | | | | | ([facility]) | +--------+---------+ + + + Social History + +-------+ [...] + + documented as of this encounter Progress Notes Maria Elena Lieberman MD - 12/03/2008 1:55 PM PDTFormatting of this note might be different f rom the original. Retina Division Progress Note: Post OP Note CC: Postop visit HPI: Wilson Rogers is a 38 y.o. male status post PPV/PPL/EL/Oil or gas OS on 12/02/2008. Pain was relieved with prescribed pain medicines, and complains of mild DONOHUE.++ N/V last night. Ref erring Provider: David ANGUIANO: See specialty comments Allergies: Penicillins and Lisinopril Meds: No interval changes in systemic medications Examination: 12/03/2008 [facility] Va cc PH IOP 2:01 PM Left Eye LPO NT NI 11 Atropine, Prednisolone, Ofloxacin given in office at 2:07 pm. SLE OS Lids Appropriate edema Conjunctiva Well closed Cornea Clear AC Deep and quiet Iris dilated Lens Aphakic Ophthalmoscopy of the left eye disclosed retina that is flat all over. Former and new retin ectomy edges appear flat. View somewhat limited today 2/2 gas/pt comfort. IMPRESSION: Post op status post PPV/PPL/retinectomy/EL OS on 12/02/2008 PLAN: Ofloxacin OS qid Atropine 1% OS bid Prednisolone OS qid No lifting, bending or straining x 2 weeks. Shield at night time x 1 week. Pain medicines as needed. Relevant information regarding altitude, nitrous oxide as it relates to intraocular gas dis cussed. Call immediately for increased pain, decreased vision. 24 hour contact information given. Positioning: face down, left side down or right side down Return to clinic in 1 week. Maria Elena Lieberman MD documented in this encounter Plan of Treatment +--------+---------+ + + + | Date | Type | Specialty | Care Team | Description | +--------+---------+ + + + | 01/26/ | Office | Ophthalmology | Maria Elena Lieberman, | | | 2020 | Visit | | [address] | | | | | [address] | | | | | | [place], [place] | | | | | | [address] | | | | | | [phone] | | | | | | | | +--------+---------+ + + + documented as of this encounter Visit Diagnoses + + | Diagnosis | + + | Type II or unspecified type diabetes mellitus with ophthalmic manifestations, | | uncontrolled(250.52) ([facility]) - Primary Type II or unspecified type diabetes mellitus with | | ophthalmic manifestations, uncontrolled | + + | Unspecified retinal detachment | + + | Proliferative diabetic retinopathy(362.02) Proliferative diabetic retinopathy | + + documented in this encounter"
--- OUTSIDE RECORDS SUMMARY | ~2019-10-28 | XMS | Encounter Summary ---
Demographics + + + | Address | [address] | | | [place] [address] | + + + | Home Phone | | + + + | Preferred Language | Unknown | + + + | Marital Status | Single | + + + | Mandaen Affiliation | CHR | + + + | Race | White | + + + | Ethnic Group | Not or | + + + Author + + + | Author | [facility] | + + + | Organization | [facility] | + + + | Address | Unknown | + + + | Phone | Unavailable | + + + Support + + + + + | Name | Relationship | Address | Phone | + + + + + | Krissy Rogers | BRADEN | [place] [address] | | + + + + + | Bay Rogers | ECON | Unknown | | + + + + + Care Team Providers + +------+ + | Care Coding Quality Analyst Name | Role | Phone | + +------+ + | Jono Arambula | PCP | | + +------+ + Reason for Visit +---------+ + | Reason | Comments | +---------+ + | Post Op | | +---------+ + Encounter Details +--------+---------+ + + + | Date | Type | Department | Care Team | Description | +--------+---------+ + + + | 12/29/ | Office | [facility] | Maria Elena Lieberman, | Unspecified Retinal | | 2008 | Visit | [facility] at | [address] | Detachment; DM Eye | | | | [facility] [address] | Manif Type II, | | | | [address] | [place], [place] | Uncontrolled ([facility]); | | | | Eye [place], [facility] | [address] | Vision, Loss, | | | | floor [facility] [place] | [phone] | Sudden; | | | | [address] | | Proliferative | | | | | | Diabetic Retinopathy | | | | | | ([facility]) | +--------+---------+ + + + Social History [...] Progress Notes Maria Elena Lieberman MD - 12/29/2008 10:36 AM PDTFormatting of this note might be different f rom the original. Retina Division Progress Note: Post OP Note CC: Postop visit HPI: Wilson Rogers is a 38 y.o. male status post PPV/PPL/EL/SF6 OS on 12/02/2008. Pt. States vision is about the same and eye is comfortable. 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 Allergies: Penicillins and Lisinopril Meds: See med list, updated 12/29/2008 Examination: 12/08/2008 Va sc IOP 10:33 AM Left Eye LPO with projection 11 12/29/2008 Va sc Va cc PH IOP 10:40 AM Right Eye CF @ near / / 12 Left Eye HM With +10.00 20/400 easily (checked by cjf) / 7 A&O x 4 Left eye dilated only with Mydriacyl and Neosynephrine @ 10:40 AM Lizbeth Darden SLE OS Lids Appropriate edema Conjunctiva Well closed Cornea Clear AC Deep and quiet Iris dilated Lens Aphakic Ophthalmoscopy of the left eye disclosed retina that is flat all over. Former and new retin ectomy edges appear flat. Better view today as smaller gas bubble - posterior pole is flat . IMPRESSION: Post op status post PPV/PPL/retinectomy/EL/gas OS on 12/02/2008 doing well from eye stand p oint - had a mild stroke 2 weeks ago - some residual weakness Now on Plavix and asa and zoloft PLAN: Mustapha Abarca MD is Dr. Currie in [place] - will fax records I called Dr. Luu of anesthesia - he feels we could do secondary IOL 1 month after a mild stroke with patient on these meds - Given +10.00 loaner aphakic glasses to try wearing in the interimcontinue atropine qhs, Pre dnisolone taper 3-2-1-0 F/u 1 month - plan to schedule secondary IOL at that time if stable. Maria Elena Lieberman MD documented in this [...] [address] | | | | | | [place], [place] | | | | | | [address] | | | | | | [phone] | | | | | | | | +--------+---------+ + + + documented as of this encounter Visit Diagnoses + + | Diagnosis | + + | Unspecified retinal detachment | + + | Type II or unspecified type diabetes mellitus with ophthalmic manifestations, | | uncontrolled(250.52) ([facility]) Type II or unspecified type diabetes mellitus with | | ophthalmic manifestations, uncontrolled | + + | Vision, loss, sudden Sudden visual loss | + + | Proliferative diabetic retinopathy(362.02) Proliferative diabetic retinopathy | + + documented in this encounter"
--- OUTSIDE RECORDS SUMMARY | ~2019-10-28 | XMS | Encounter Summary ---
Demographics + + + | Address | [address] | | | [place] [address] | + + + | Home Phone | | + + + | Preferred Language | Unknown | + + + | Marital Status | Single | + + + | Latter Day Affiliation | CHR | + + + | Race | White | + + + | Ethnic Group | Not or | + + + Author + + + | Author | [facility] | + + + | Organization | [facility] | + + + | Address | Unknown | + + + | Phone | Unavailable | + + + Support + + + + + | Name | Relationship | Address | Phone | + + + + + | Krissy Rogers | BRADEN | [place] [address] | | + + + + + | Bay Rogers | ECON | Unknown | | + + + + + Care Team Providers + +------+ + | Care Electromechanical Equipment Assembler Name | Role | Phone | + [...] Type | | 2008 | Visit | [facility] at | [address] | II, Uncontrolled | | | | [address]abel[address] | [address] | ([facility]) (Primary Dx); | | | | [address] | [place], [place] | Unspecified Retinal | | | | [facility] | [address] | Detachment; | | | | floor [place], [place] | [phone] | Proliferative | | | | [address] | | Diabetic Retinopathy | | | | | | ([facility]) | +--------+---------+ + + + Social History [...] [address] | | | | | | [place], [place] | | | | | | [address] | | | | | | [phone] | | | | | | | | +--------+---------+ + + + documented as of this encounter Visit Diagnoses + + | Diagnosis | + + | Type II or unspecified type diabetes mellitus with ophthalmic manifestations, | | uncontrolled(250.52) ([facility]) - Primary Type II or unspecified type diabetes mellitus with | | ophthalmic manifestations, uncontrolled | + + | Unspecified retinal detachment | + + | Proliferative diabetic retinopathy(362.02) Proliferative diabetic retinopathy | + + documented in this encounter"
--- OUTSIDE RECORDS SUMMARY | ~2019-10-28 | XMS | Encounter Summary ---
Demographics + + + | Address | [address] | | | [place] [address] | + + + | Home Phone | | + + + | Preferred Language | Unknown | + + + | Marital Status | Single | + + + | Hinduism Affiliation | CHR | + + + | Race | White | + + + | Ethnic Group | Not or | + + + Author + + + | Author | [facility] | + + + | Organization | [facility] | + + + | Address | Unknown | + + + | Phone | Unavailable | + + + Support + + + + + | Name | Relationship | Address | Phone | + + + + + | Krissy Rogers | BRADEN | [place] [address] | | + + + + + | Bay Rogers | ECON | Unknown | | + + + + + Care Team Providers + +------+ + | Care Clothing Manager Name | Role | Phone | + +------+ + | Bola Chaudhry MD | PCP | | + +------+ + Reason for Visit + + + | Reason | Comments | + + + | Follow-up visit | | + + + Benefits Check (Routine) +--------+--------+ + + + + | Status | Reason | Specialty | Diagnoses / | Referred By | Referred To | | | | | Procedures | Contact | Contact | +--------+--------+ + + + + | Closed | | Ophthalmology | | Non-[facility] | [place], | | | | | | Epic Dept | MD Maria Elena | | | | | | | [address] | | | | | | | [address] | | | | | | | [address] | | | | | | | [place], [place] | | | | | | | [address] | | | | | | | Phone: | | | | | | | [phone] | | | | | | | Fax: | | | | | | | [phone] | +--------+--------+ + + + + Encounter Details +--------+---------+ + + + | Date | Type | Department | Care Team | Description | +--------+---------+ + + + | 01/28/ | Office | [facility] | Maria Elena Balbuena, | Proliferative | | 2019 | Visit | [facility] at | [address] | diabetic retinopathy | | | | [address] | of both eyes | | | | [address] | [place], [place] | without macular | | | | [facility] | [address] | edema associated | | | | floor [place], [place] | [phone] | with type 2 diabetes | | | | [address] | | mellitus (HCC) | +--------+---------+ + + + Social History + +-------+ +--------+ + | Tobacco Use | Types | Packs/Day | Years | Date | | | | | Used | | + +-------+ +--------+ + | Former Smoker | | | | Quit: 04/23/2010 | + +-------+ +--------+ + + +---+---+---+ | Smokeless Tobacco: | | | | | Never Used | | | | + +---+---+---+ + + + | Sex Assigned at [...] + + documented as of this encounter Patient Instructions Patient Instructions Maria Elena Balbuena MD - 01/28/2019 1:15 PM PDTDiabetic Retinopathy Diabetes Can Affect Sight If you have diabetes mellitus, your body does not use and store sugar properly. High blood sugar levels can damage blood vessels in the retina. The retina is the thin layer of light-s ensing nerve cells lining the inside back of your eye. It converts light rays into signals, which are sent through the optic nerve to your brain where they are recognized as images. Th e retina requires the proper amount of sugar and oxygen to nourish it. When the retinal vess els are injured by chronically elevated blood sugars, the retina does not function properly. This is referred to as diabetic retinopathy. Types of Diabetic Retinopathy There are two types of diabetic retinopathy: non-proliferative diabetic retinopathy (NPDR) and proliferative diabetic retinopathy (PDR). NPDR is an early stage of diabetic retinopathy. In this stage, tiny blood vessels (microane urysms) within the retina leak blood or fluid. The leaking fluid causes the retina to swell or to form deposits called exudates. Many people with diabetes have mild NPDR, which usually does not affect their vision. When vision is affected it is the result of macular edema or macular ischemia, or both. Macular edema is swelling or thickening of the macula, a small area in the center of the re ming that allows us to see fine details clearly. The swelling is caused by fluid leaking fro m retinal blood vessels. It is the most common cause of visual loss in diabetes. Vision loss may be mild to severe, but even in the worst cases, peripheral vision continues to function . Macular ischemia occurs when small blood vessels (capillaries) close. Vision blurs because the macula no longer receives sufficient blood supply to work properly. PDR is present when abnormal new vessels (neovascularizaiton) begin growing on the surface of the retina or optic nerve. The main cause of PDR is widespread closure of retinal blood v essels, preventing adequate blood flow. The retina responds by growing new blood vessels in an attempt to supply blood to the area where the original vessels closed. Unfortunately, the new abnormal blood vessels do not resupply the retina with normal blood flow. The new vessles are often accompanied by scar tissue that may cause wrinkling or detac hment of the retina. PDR may cause more severe vision loss than NPDR because it can affect both central and jenaro pheral vision. Proliferative diabetic retinopathy causes visual loss in the following ways: Vitreous Hemorrhage The fragile new abnormal vessels may bleed into the vitreous, a clear, gel-like substance t hat fills the center of the eye. If the vitreous hemorrhage is small, a person might see onl y a few new, dark, floaters. A very large hemorrhage might block out all vision. It may take days, months, or even years to reabsorb the blood completely, depending on the amount of blood present. If the eye does not clear the vitreous blood adequately within a re asonable time, vitrecomy surgery may be recommended. Vitreous hemorrhage alone does not cause permanent vision loss. When the blood clears, visi on may return to its former level unless the macula is damaged. Traction retinal detachment When PDR is present, the scar tissue associated with neovascularization can shrink, wrinkli ng and pulling the retina from its normal position. Macular wrinkling can cause visual disto rtion. More severe vision loss can occur if pulling of the scar tissue at the macula or larg e areas of the retina causes traction retinal detachment. Neovascular glaucoma Occasionally, extensive retinal vessel closure will cause new, abnormal blood vessels to gr ow on this iris (colored part of the eye) and in the drainage channels in the front of the e ye. This can block the normal flow of fluid out of the eye. Pressure in the eye builds up, r esulting in neovascular glaucoma, a severe eye disease that causes damage to the optic nerve . How is diabetic retinopathy diagnosed? A medical eye examination is the best way to detect changes inside your eye. An ophthalmolo gist (Eye MD) can often diagnose and treat serious retinopathy before you are aware of any v ision problems. The cardiovascular operating room nurse dilates (enlarges) your pupil and looks inside the eye w ith special equipment and lenses. If your cardiovascular operating room nurse finds diabetic retinopathy, he or she may order color photographs o r optical coherence tomography (OCT) of the retina or a special test called fluorescein matteo ography to find out if you need treatment. In fluorescein angiography, a yellow/orange dye i s injected into your arm and photos of your eye are taken to study the integrity of the bloo d circulation of the retina. The angiogram precisely detects areas fluid leakage or areas of poor blood supply (non-perfusion or ischemia) How is diabetic retinopathy treated? The best treatment is to prevent the development of retinopathy as much as possible. Strict control of your blood sugar will significantly reduce the long-term risk of vision loss fro m diabetic retinopathy with attention paid to keeping the Hemoglobin A1c level to the level advised by your primary care physician or batch records clerk. If high blood pressure and kidney problems are present, they need to be treated. Medical treatment In certain cases, your eye MD may choose to treat your macular edema with injections of med icine in your eye. These special shots of medicine, called intravitreal injections, may be s teroids or anti-VEGF medications. They are designed to shrink the swelling of the macula. Laser surgery Laser surgery is often recommended for people with macular edema, PDR, and neovascular glau coma. For macular edema the laser is focused on the damaged retina near the macula to decrease th e fluid leakage. The main goal of treatment is to prevent further loss of vision. It is unco mmon for people who have blurred vision from macular edema to recover normal vision, althoug h some may experience partial improvement. A few people may see the laser spots near the amrik ter of their vision following treatment. The spots usually fade with time but may not disapp ear. For PDR, the laser is focused on all parts of the retina except the macula. This panretinal photocoagulation (PRP) treatment causes abnormal new vessels to shrink and often prevents t hem from growing in the future. It also decreases the chance that vitreous bleeding or retin al distortion will occur. Multiple laser treatments over time are sometimes necessary. Laser surgery does not cure di abetic retinopathy and does not always prevent further loss of vision. If numerous PRP treat ments are necessary, the peripheral and night vision might become reduced in order to save t he central vision. Vitrectomy In advanced PDR, your cardiovascular operating room nurse may recommend a vitrectomy. During this microsurgical procedure, which is performed in the operating room, the blood-filled vitreous is removed a nd replaced with a clear solution. Your cardiovascular operating room nurse may wait for several months to see i f the blood clears on its own before performing a vitrectomy. Vitrectomy often prevents further bleeding by removing the abnormal vessels that cause the bleeding. If the retina is detached, it can be repaired during the vitrectomy surgery. Surge ry should usually be done early because macular distortion or traction retinal detachment wi ll cause permanent visual loss. The longer the macula is distorted or out of place, the more serious the vision loss will be. Vision loss is largely preventable If you have diabetes, it is important to know that today, with improved methods of diagnosi s and treatment, a smaller percentage of people who develop retinopathy have serious vision problems. Early detection of diabetic retinopathy is the best protection of diabetic retinop athy is the best protection against loss of vision. You can significantly lower your risk of vision loss by maintaining strict control of your blood sugar and visiting your cardiovascular operating room nurse regularly. When to schedule an examination People with Type 1 diabetes should schedule an examination within five years of being diagn osed and then yearly. People with Type 2 diabetes should have an exam at the time of diabete s diagnosis and then once a year. women with diabetes should schedule an appointment in the first trimester because retinopathy can progress quickly during . If you need to be examined for eyeglasses, it is important that your blood sugar be consist ently under control for several days when you see your cardiovascular operating room nurse. Eyeglasses that work well when blood sugar is out of control will not work well when blood sugar is stable. Rapid changes in blood sugar can cause fluctuating vision in both eyes even if retinopathy is not present. You should have your eyes checked promptly if you have visual changes that: Affect either one of both eyes Last more than a few days Are not associated with a change in blood sugar When you are first diagnosed with diabetes, you should have your eyes checked: Within 5 years of diagnosis if you are 29 years old or younger Within a few months of diagnosis if you are 30 years or older Use artifical tears 1-2 times a day both eyes documented in this encounter Progress Notes Maria Elena Balbuena MD - 01/28/2019 1:15 PM PDTFormatting of this note might be different f rom the original. [facility] Progress Note 01/28/2019 48 y.o. male Proliferative diabetic retinopathy of both eyes without macular edema associated with type 2 diabetes mellitus (HCC) s/p PPV/PPL/retinectomy/EL/gas OS on 12/02/2008 doing well from eye stand point -retina stab le and attached Call for decreased vision, increased distortion, increased pain, new floaters or flashing l ights Follow up: Return in about 1 year (around 01/29/2020) for OCT OU. Chief Complaint: Follow-up visit HPI (Edited by physician):Retinal detachment LE s/p treatmetn Type II DM with PDR Last HA1c: around 8 11/2018 (per patient) - just recently changed pumps Vision decreased, both eyes Denies pain Denies change in floaters Denies flashes of light Notes multiple images in vision (like a flies vision) Ocular meds: none Current Outpatient Medications (Other) Medication Sig aspirin EC Take by mouth. Take 81 mg by mouth Daily. atorvastatin Take 40 mg by mouth once daily. Cholecalciferol (Vitamin D3) Take 5,000 Units by mouth. Take 1 capsule by mouth Daily. cinacalcet Take by mouth. Take 60 mg by mouth Daily 1800. clopidogrel Take by mouth. Take 1 tablet by mouth Daily. gabapentin Take by mouth. hydroCHLOROthiazide Take by mouth. insulin glargine Inject 35 Units under the skin (SUBC) once daily at bedtime. LEVOTHYROXINE ORAL Take 150 mcg by mouth once daily. losartan Take 25 mg by mouth. Take 1 tablet by mouth 3 Times Daily. magnesium chloride SR Take 128 mg by mouth three times daily. metoprolol tartrate Take by mouth. Take 2 tablets by mouth 2 Times Daily. Indications: take 50mg in morning and 100mg at night mycophenolate Take by mouth. Take 3 capsules by mouth 2 Times Daily. NOVOLOG SUBQ Inject under the skin (SUBC). Sliding scale with dinner omeprazole Take by mouth. Take 1 capsule by mouth Daily. tacrolimus Take by mouth. Take 1-2 capsules by mouth 2 Times Daily. Take 1mg in the mo rning and 2mg in the evening. torsemide Take 5 mg by mouth once daily. ZOLEDRONIC [id number] IV Inject into the vein (IV). Reviewed: Tobacco | Allergies | Meds | Problems | Med Hx | Surg Hx | Fam Hx | Soc Hx Examination: See Ophthalmology Module Attestations: The attending physician is responsible for and agrees with the entire content of the note a nd has personally performed the HPI and the physical examination. MARIA ELENA BALBUENA MD documented in this encounter Plan of Treatment +--------+---------+ + + + | Date | Type | Specialty | Care Team | Description | +--------+---------+ + + + | 01/26/ Office | Ophthalmology | Maria Elena Balbuena, | | | 2019 | Visit | | [address] | | | | | | [address] | | | | | | [place], [place] | | | | | | [address] | | | | | | [phone] | | | | | | | | +--------+---------+ + + + documented as of this encounter Procedures + +--------+ + + + | Procedure Name | Priori | Date/Time | Associated Diagnosis | Comments | | | ty | | | | + +--------+ + + + | OCT, RETINA | Routin | 01/28/2019 | Proliferative | Results for this | | | e | 1:43 PM | diabetic retinopathy | procedure are in the | | | | PDT | of both eyes | results section. | | | | | without macular | | | | | | edema associated | | | | | | with type 2 diabetes | | | | | | mellitus ([facility]) | | + +--------+ + + + documented in this encounter Results OCT, RETINA (01/28/2019 1:43 PM PDT) + + + | Narrative | Performed At | + + + | Hooking Machine Operator | [facility] | | DocumentationRight EyeQuality: good Central macular thickness: | [facility] | | 200 Segmentation: accurate Left EyeQuality: good Central | | | macular thickness: 265 Segmentation: accurate Provider | | | DocumentationRight EyeContour: no central thickening, unchanged | | | Fluid and related findings: no fluid Retinal findings: | | | epiretinal membrane Choroidal findings: unremarkable Left | | | EyeContour: no central thickening, unchanged Fluid and related | | | findings: no fluid Retinal findings: Outer retinal atrophy | | | Choroidal findings: unremarkable | | | | | |Central macular thickness: 265 | | |Segmentation: accurate | | | | | | | | |Provider Documentation | | |Right Eye | | |Contour: no central thickening, unchanged | | |Fluid and related findings: no fluid | | |Retinal findings: epiretinal membrane | | |Choroidal findings: unremarkable | | | | | | | | |Left Eye | | |Contour: no central thickening, unchanged | | |Fluid and related findings: no fluid | | |Retinal findings: Outer retinal atrophy | | |Choroidal findings: unremarkable | | + + + + + + + + | Performing | Address | City/State/Zipcode | Phone Number | | Organization | | | | + + + + + | [facility] | [address] | [place] [address] | | | [place] | [place]. 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
--- OUTSIDE RECORDS SUMMARY | ~2019-10-28 | XMS | Encounter Summary ---
Demographics + + + | Address | [address] | | | [place] [address] | + + + | Home Phone | | + + + | Preferred Language | Unknown | + + + | Marital Status | | + + + | Anabaptism Affiliation | 1013 | + + + | Race | Unknown | + + + | Ethnic Group | Unknown | + + + Author + + + | Author | [facility] | | | and [place] | + + + | Organization | [facility] | | | and [place] | + + + | Address | Unknown | + + + | Phone | Unavailable | + + + Support + + + + + | Name | Relationship | Address | Phone | + + + + + | Deysi Montelogno | ECON | [address] | | | | | [facility] [place] | | | | | [address] | | + + + + + | Ellen Greer | ECON | [address] | | | | | [place] | | + + + + + | Gisell Greer | ECON | Unknown | | + + + + + Care Team Providers + +------+ + | Care Veterinary Manager Name | Role | Phone | + +------+ + | David Estrada MD | PCP | Unavailable | + +------+ + Reason for Referral Evaluate & Treat (Routine) +--------+ + + + + + | Status | Reason | Specialty | Diagnoses / | Referred By | Referred To | | | | | Procedures | Contact | Contact | +--------+ + + + + + | Closed | Specialty | Gastroenterol | Diagnoses | | Harri, | | | Services | ogy | Nausea and | [place], | Yoav Silverio MD | | | Required | | vomiting | [place], | [address], | | | | | Abdominal | [address] | [address] | | | | | bloating | [address] | [place], | | | | | Procedures | [address] | [place] [address] | | | | | [place] UPPER GI | [place], | Phone: | | | | | ENDOSCOPY,DI | [place] [address] | [phone] | | | | | AGNOSIS [place] | Phone: | Fax: | | | | | UPPER GI | [phone] | [phone] | | | | | ENDOSCOPY,BI | Fax: | | | | | | OPSY | [phone] | | +--------+ + + + + + Diagnostic/Screening (Routine) +--------+--------+ + + + + | Status | Reason | Specialty | Diagnoses / | Referred By | Referred To | | | | | Procedures | Contact | Contact | +--------+--------+ + + + + | Closed | | Radiology | Diagnoses | | [facility] | | | | | Nausea and | [place], | Imaging [address] | | | | | vomiting | [place], | [address] | | | | | Abdominal | [address] | [address] [place] | | | | | bloating | [address] | [facility], [place] | | | | | Diabetes | [address] | [address] | | | | | mellitus | [place], | Phone: | | | | | type 1 (HCC) | [place] [address] | [phone] | | | | | Procedures | Phone: | Fax: | | | | | [place] Gastric | [phone] | [phone] | | | | | Emptying | Fax: | | | | | | | [phone] | | +--------+--------+ + + + + Reason for Visit +--------+ + | Reason | Comments | +--------+ + | Other | vomiting | +--------+ + Encounter Details +--------+---------+ + + + | Date | Type | Department | Care Team | Description | +--------+---------+ + + + | 04/09/ | Office | [facility] | [facility], | Nausea and vomiting | | 2011 | Visit | GASTROENTEROLOGY | NAWAF Egan [address] | (Primary Dx); | | | | [address] | [address] | Abdominal bloating; | | | | [address] [place], [place] | [place], [place] | Diabetes mellitus | | | | [address] | [address] | type 1 (HCC) | | | | [phone] | | | +--------+---------+ + + + Social History + +-------+ +--------+------+ | Tobacco Use | Types | Packs/Day | Years | Date | | | | | Used | | + +-------+ +--------+------+ | Former Smoker | | | | | + +-------+ +--------+------+ + + +---------+ + | Alcohol Use | Drinks/Week | oz/Week | Comments | + + +---------+ + | No | | | | + + +---------+ + + + + | Sex Assigned at | Date Recorded | | | | + + + | Not on file | | + + + documented as of this encounter Last Filed Vital Signs + + + + + | Vital Sign | Reading | Time Taken | Comments | + + + + + | Blood Pressure | 160/70 | 04/09/2012 10:00 AM | | | | | PST | | + + + + + | Pulse | 74 | 04/09/2012 10:00 AM | | | | | PST | | + + + + + | Temperature | 36.6 C (97.9 F) | 04/09/2012 10:00 AM | | | | | PST | | + + + + + | Respiratory Rate | 16 | 04/09/2012 10:00 AM | | | | | PST | | + + + + + | Oxygen Saturation | - | - | | + + + + + | Inhaled Oxygen | - | - | | | Concentration | | | | + + + + + | Weight | 97.5 kg (215 lb) | 04/09/2012 10:00 AM | | | | | PST | | + + + + + | Height | 185.4 cm (6' 1") | 04/09/2012 10:00 AM | | | | | PST | | + + + + + | Body Mass Index | 28.37 | 04/09/2012 10:00 AM | | | | | PST | | + + + + + documented in this encounter Patient Instructions Patient Instructions Julisa Howard ARNP - 04/09/2012 10:26 AM PSTElectronically sign ed by NAWAF Ya at 04/09/2012 10:29 AM PST documented in this encounter Progress Notes Julisa Howard ARNP - 04/09/2012 10:17 AM PSTFormatting of this note might be differe nt from the original. Subjective: Patient ID: Wilson Greer is a 41 y.o. male. HPI Patient notes he has intermittent nausea, usually worse in the am. Nausea is improved after vomiting. He is vomiting at least once per day. He is mainly vomiting food. He has had this issue for over 8 months. It does not matter what he is eating, he can vomit anything. He carlin s trouble keeping liquids down. He denies any dysphagia. He does have significant bloating. He had been previously seen by Dr. Barber. She ordered gastric emptying study and EGD. Accord ing to patient these were not done due to change in insurance issues. He has a history of type 1 diabetes with extensive complications related to diabetes. Allergies Allergen Reactions Lisinopril Megestrol Acetate Metoclopramide Penicillins Hives Past Medical History Diagnosis Date Epigastric pain Abscess of buttock Diabetes mellitus type 1: uncontrolled with complication Hypothyroidism Depression Diabetic retinopathy and nephropathy type 1 Retinal detachment, bilateral SURGERY 2 YEARS AGO Heart murmur Abnormal gait ESRD on dialysis renal insufficiency Stroke 2007 LATE EFFECTS Peripheral neuropathy Gastroparesis Hypertension Anxiety Insomnia Osteoarthritis Restless leg syndrome GERD (gastroesophageal reflux disease) Diarrhea Acne Nausea & vomiting CAD (coronary artery disease) PVD (peripheral vascular disease) Hemodialysis status Hyperlipidemia Hyperparathyroidism, unspecified Hypoglycemia associated with diabetes Vitamin d deficiency Esophageal reflux Past Surgical History Procedure Date Coronary angioplasty with stent placement 04/2011 [place] Cataract surgery Av fistula excision 2009, RT; 2009 LT Repair detached retina 2009 [place] Intracapsular cataract extraction 2009 Family History Problem Relation Age of Onset Heart disease Paternal Grandmother Alzheimer's disease Paternal Grandfather COPD Paternal Grandfather Diabetes Paternal Grandfather Cancer Paternal Grandfather skin cancer History Social History Marital Status: Spouse Name: N/A Number of Children: N/A Years of Education: N/A Occupational History Not on file. Social History Main Topics Smoking status: Former Smoker Smokeless tobacco: Not on file Alcohol Use: No Drug Use: Sexually Active: Other Topics Concern Not on file Social History Narrative No narrative on file Review of Systems Constitutional: Negative for fever, chills and unexpected weight change. HENT: Negative for hearing loss, congestion, rhinorrhea, trouble swallowing, postnasal drip and tinnitus. Eyes: Positive for itching and visual disturbance. Negative for pain and redness. Respiratory: Negative for cough, shortness of breath and wheezing. Cardiovascular: Positive for leg swelling. Negative for chest pain and palpitations. Gastrointestinal: Positive for nausea, vomiting, abdominal pain and abdominal distention. N egative for diarrhea, constipation, blood in stool, anal bleeding and rectal pain. Genitourinary: Positive for difficulty urinating. Negative for dysuria, urgency, frequency and hematuria. Musculoskeletal: Negative for back pain, joint swelling and arthralgias. Skin: Negative for rash. Neurological: Positive for numbness. Negative for dizziness, seizures, syncope, weakness an d headaches. Hematological: Negative for adenopathy. Psychiatric/Behavioral: Positive for dysphoric mood. The patient is not nervous/anxious. Objective: Physical Exam Physical Exam General: well developed, well nourished, in no acute distress. Head: normocephalic and atraumatic Eyes: Sclera clear Mouth: MMM Lungs: Clear to asucultate bilaterally and throughout Heart: regular rate and rhythm Abdomen: Soft, nontender, nondistended, bowel tones positive times 4 quadrants, negative Coto' s sign, negative rebound tenderness, no gaurding, no hepatosplenomegaly palpated Rectal: rectal exam prior to procedure. Msk: symmetrical with no deformity, with normal posture and gait, normal strength. Extremities: no clubbing, cyanosis, edema, or deformity noted Neurologic: no focal deficits, cranial nerves II-XII grossly intact Skin: intact without lesions or rashes. Psych: alert and cooperative; normal mood and affect; normal attention span and concentration. Assessment: Nausea and vomiting Abdominal bloating Type I diabetes Hypertension End stage renal disease-on dialysis Diabetic retinopathy Plan: Patient to have EGD for further evaluation.The procedural techniques, risks, indications, a nd alternatives were discussed. Among the risks, are perforation, bleeding, infection, letitia rgic/adverse reactions to medications, and cardiovascular complications. Each of these coul d result in hospitalization, additional procedures (including surgery), or other life threat ening complications. Patient verbalized understanding.Patient to call with any questions or concerns prior to procedure. Ordered gastric emptying study to check for motility cause for discomfort and nausea. Discussed the symptoms are likely due to gastroparesis as he does have an extensive history of type I diabetes with multiple complications. I discussed the EGD will be looking for ot her causes for potential nausea vomiting including gastric outlet obstruction. Patient was giving gastroparesis diet to go along with renal diet, hypertension diet, diabe tic diet. Discussed that these foods that should be easier for him to digest hopefully help ing his symptoms. Discussd that if gastric gastroparesis is significant enough may require g astric pacing to help with some of its and his symptoms however do not know how good of a shah rgical candidate he would be due to his multiple complications related to his diabetes. Will follow up with results. Patient is to call with any question or concerns. Any fevers, chills, chest pain, SOB or other serious symptoms patient is to call the office or go to ER . Cc: David Estrada Reviewed most recent labs, imaging, and procedures. documented in t his encounter Miscellaneous Notes Miscellaneous - MARLENA VARNER - 04/09/2012 12:00 AM PST documented in this encounter Plan of Treatment +--------+---------+ + + + | Date | Type | Specialty | Care Team | Description | +--------+---------+ + + + | 01/04/ | Office | Nephrology | Jaren Pelayo MD | | | 2020 | Visit | | [address] [facility] | | | | | | [address] [place], [place] | | | | | | [address] | | | | | | | | +--------+---------+ + + + + + +--------+ + + | Name | Type | Priori | Associated Diagnoses | Order Schedule | | | | ty | | | + + +--------+ + + | Ambulatory referral | Outpatient | Routin | Nausea and | Expected: | | to Gastroenterology | Referral | e | vomiting Abdominal | 05/03/2012, Expires: | | | | | bloating | 04/09/2013 | + + +--------+ + + documented as of this encounter Results NM Gastric Emptying (04/25/2012 10:52 AM PST) + + | Specimen | + + | | + + + + + | Narrative | Performed At | + + + | [facility] | [place] | | Department [address] [facility] | [facility] | | [ rep al [address]] [ rep [facility] | | [facility]] Signed | - IMAGING | | | | | Patient Name: WILSON GREER Physician: | | | BRID.01 : 1970 Age: 41 Sex: M Unit #: [id number] | | | Exam Date: 04/25/12 [place] [facility] [place] | | Report #: [id number] Page: | | | %(RAD)RES..mtdd.print.filter("pg") of %(RAD) | | | RES..mtdd.print.filter("tpg") | | | | | | Accession Number: [id number] | | | NUCLEAR GASTRIC EMPTYING STUDY, 04/25/2012 CLINICAL HISTORY: | | | NAUSEA, VOMITING AND BLOATING, DIABETIC. COMPARISON: | | | None. TECHNIQUE: Immediately following oral ingestion | | | of 1 mCi of Tc 99m sulfur colloid with an egg, dynamic planar | | | scintigraphy of the upper abdomen was performed. Region of interest | | | analysis and a time activity curve are utilized to calculate a T1/2 | | | solid phase gastric emptying time. FINDINGS: Activity | | | initially present in the gastric fundus and body passes through the | | | stomach and into segments of bowel. The T1/2 solid phase gastric | | | emptying time is brisk at 28 minutes. IMPRESSION: 1. | | | BRISK T1/2 SOLID PHASE GASTRIC EMPTYING TIME OF 28 MINUTES. | | | Dictated Date/Time: 04/25/2012 10:52 Transcribed | | | Date/Time: 04/25/2012 11:12 Retail Pricing Coordinator: | | | <<Signature on File>> | | | Arya Gaytan | | | MD Sebastien04/25/12 9136 <Electronically signed by Arya Crowe MD> | | | Arya Crowe MD 04/25/12 1702 Retail Pricing Coordinator: | | | [employer] [id number]/03/13 1112 Julisa Howard, | | | [place]AN[place]E | | + + + + + + + + | Performing | Address | City/State/Zipcode | Phone Number | | Organization | | | | + + + + + | [address] | [address] | [place] | [phone] | | [facility] | | [address] | | | - IMAGING | | | | + + + + + documented in this encounter Visit Diagnoses + + | Diagnosis | + + | Nausea and vomiting - Primary Nausea with vomiting | + + | Abdominal bloating Flatulence, eructation, and gas pain | + + | Diabetes mellitus type 1 (HCC) Type I (juvenile type) diabetes mellitus without | | mention of complication, not stated as uncontrolled | + + documented in this encounter
--- OUTSIDE RECORDS SUMMARY | ~2019-10-28 | XMS | Encounter Summary ---
Demographics + + + | Address | [address] | | | [place] [address] | + + + | Home Phone | | + + + | Preferred Language | Unknown | + + + | Marital Status | | + + + | Christian Affiliation | 1013 | + + + | Race | Unknown | + + + | Ethnic Group | Unknown | + + + Author + + + | Author | [facility] | | | and [place] | + + + | Organization | [facility] | | | [...] | | | | [facility] | | | | | [address] | | + + + + + | Ellen Rogers | ECON | [address] | | | | | [place] | | + + + + + | Gisell Rogers | ECON | Unknown | | + + + + + Care Team Providers + +------+ + | Care Collection Coordinator Name | Role | Phone | + +------+ + | David Estrada MD | PCP | Unavailable | + +------+ + Encounter Details +--------+ + + + + | Date | Type | Department | Care Team | Description | +--------+ + + + + | 10/05/ | Hospital | [facility] | Ashley De Dios | | | 2012 | Encounter | MED [facility] MED [facility] | M, DO [address] | | | | | [address] [place] | [facility] [address] [place] | | | | | [place] [address] | [place] [address] | | | | | [phone] | [phone] | | | | | | | [...] + + + +---------+ + + | acetone, urine, | Use as directed for | | 0 | 04/12/20 | | | test (KETOSTIX) | BG >450 or if sick, | | | 10 | | | strip | >230 | | | | | + + + +---------+ + + | aspirin 81 mg EC | Take 81 mg by mouth | | 0 | | | | tablet | Daily. | | | | | + + + +---------+ + + | clopidogrel | Take 75 mg by mouth | | 0 | | | | (PLAVIX) 75 mg | Daily. | | | | | | tablet | | | | | | + + + +---------+ + + | nitroglycerin | Place 0.4 mg under | | 0 | | | | (NITROSTAT) 0.4 mg | the tongue every 5 | | | | | | SL tablet | minutes as needed. | | | | | + + + +---------+ + + | albuterol | Inhale 2 puffs into | | 0 | | | | (VENTOLIN HFA) 90 | the lungs every 6 | | | | 7 | | mcg/puff inhaler | hours as needed. | | | | | + + + +---------+ + + | amlodipine | Take 10 mg by mouth | | 0 | | | | (NORVASC) 10 MG | Daily. | | | | 7 | | tablet | | | | | | + + + +---------+ + + | B Complex-C (B | Take by mouth. | | 0 | | | | COMPLEX-VITAMIN C) | | | | | 7 | | CAPS | | | | | | + + + +---------+ + + | bisoprolol | Take 5 mg by mouth | | 0 | | | | (ZEBETA) 5 mg tablet | Daily. | | | | 7 | + + + +---------+ + + | cinacalcet | Take 30 mg by mouth | | 0 | | | | (SENSIPAR) 30 mg | Daily. | | | | 9 | | tablet | | | | | | + + + +---------+ + + | clindamycin | Apply topically 2 | | 0 | | | | (CLEOCIN T) 1% | times daily. | | | | 7 | | external solution | | | | | | + + + +---------+ + + | clobetasol | Apply topically 2 | | 0 | | | | (TEMOVATE) 0.05% | times daily. | | | | 7 | | cream | | | | | | + + + +---------+ + + | cyclobenzaprine | Take 10 mg by mouth | | 0 | | | | (FLEXERIL) 10 mg | 3 times daily as | | | | 7 | | tablet | needed. | | | | | + + + +---------+ + + | doxycycline | Take 100 mg by mouth | | 0 | | | | (VIBRAMYCIN) 100 mg | 2 times daily. | | | | 7 | | tablet | | | | | | + + + +---------+ + + | | Take 1 tablet by | | 0 | | | | HYDROcodone-acetamin | mouth every 6 hours | | | | 7 | | ophen (NORCO) 10-325 | as needed. | | | | | | mg per tablet | | | | | | + + + +---------+ + + | insulin aspart | Inject under the | | 0 | | | | (NOVOLOG) 100 | skin 3 times daily | | | | 7 | | units/mL injection | (before meals). | | | | | + + + +---------+ + + | insulin glargine | Inject 17 Units | | 0 | | | | (LANTUS) 100 | under the skin | | | | 7 | | units/mL injection | nightly. | | | | | + + + +---------+ + + | lactulose 10 g/15 | Take 20 g by mouth | | 0 | | | | mL solution | Daily. | | | | 7 | + + + +---------+ + + | levothyroxine | Take 175 mcg by | | 0 | | | | (SYNTHROID, | mouth Daily. | | | | 7 | | LEVOTHROID) 175 MCG | | | | | | | tablet | | | | | | + + + +---------+ + + | LORazepam (ATIVAN) | Take 1 mg by mouth | | 0 | | | | 1 mg tablet | every 6 hours as | | | | 7 | | | needed. | | | | | + + + +---------+ + + | ondansetron | Take 4 mg by mouth | | 0 | | | | (ZOFRAN ODT) 4 mg | every 8 hours as | | | | 7 | | disintegrating | needed. | | | | | | tablet | | | | | | + + + +---------+ + + | pramipexole | Take 0.5 mg by mouth | | 0 | | | | (MIRAPEX) 0.5 MG | 3 times daily. | | | | 7 | | tablet | | | | | | + + [...] +---------+ + + | promethazine | Take 25 mg by mouth | | 0 | | | | (PHENERGAN) 25 mg | every 6 hours as | | | | 7 | | tablet | needed. | | | | | + + + +---------+ + + | ranitidine | Take 150 mg by mouth | | 0 | | | | (ZANTAC) 150 mg | Daily. | | | | 7 | | tablet | | | | | | + + + +---------+ + + | sevelamer | Take 1,600 mg by | | 0 | | | | carbonate (RENVELA) | mouth 3 times daily | | | | 7 | | 800 mg tablet | (with meals). | | | | | + + + +---------+ + + | simvastatin | Take 10 mg by mouth | | 0 | | | | (ZOCOR) 10 mg tablet | nightly. | | | | 7 | + + + +---------+ + + | venlafaxine | Take 75 mg by mouth | | 0 | | | | (EFFEXOR) 75 MG | 3 times daily. | | | | 7 | | tablet | | | | | | + + + +---------+ + + | zolpidem (AMBIEN) | Take 5 mg by mouth | | 0 | | | | 5 mg tablet | nightly as needed. | | | | 7 | + + + +---------+ + + documented as of this encounter Plan of Treatment +--------+---------+ + + + | Date | Type | Specialty | Care Team | Description | +--------+---------+ + + + | 01/04/ | Office | Nephrology | Jaren Pelayo MD | | | 2020 | Visit | | [address] [facility] | | | | | | [address] [facility] | | | | | | [address] | | | | | | | | +--------+---------+ + + + documented as of this encounter Visit Diagnoses Not on filedocumented in this encounter"
--- OUTSIDE RECORDS SUMMARY | ~2019-10-28 | XMS | Encounter Summary ---
Demographics + + + | Address | [address] | | | [place] [address] | + + + | Home Phone | | + + + | Preferred Language | Unknown | + + + | Marital Status | | + + + | Baptist Affiliation | 1013 | + + + | Race | Unknown | + + + | Ethnic Group | Unknown | + + + Author + + + | Author | [facility] | | | and [place] | + + + | Organization | [facility] | | | and [...] [place] | | | | | [address] | | + + + + + | Ellen Rogers | ECON | [address] | | | | | [place] | | + + + + + | Gisell Rogers | ECON | Unknown | | + + + + + Care Team Providers + +------+ + | Care Dental Hygiene Professor Name | Role | Phone | + +------+ + PCP | Unavailable | + +------+ + Encounter Details +--------+ + + + + | Date | Type | Department | Care Team | Description | +--------+ + + + + | 11/12/ | Hospital | [facility] | Jaren Pelayo MD | End stage renal | | 2009 | Encounter | [facility] | [address] [facility] | disease (HCC) | | | | CLINICAL DECISION | [address] [place], [place] | | | | | [address] [facility] | [address] | | | | | [place] | | | | | | [address] | | | | | | [phone] | | | +--------+ + + + [...] 2020 | Visit | | [address] [facility] | | | | | | [address] [facility] | | | | | | [address] | | | | | | | | +--------+---------+ + + + documented as of this encounter Visit Diagnoses + + | Diagnosis | + + | End stage renal disease (HCC) End stage renal disease | + + documented in this encounter"
--- OUTSIDE RECORDS SUMMARY | ~2019-10-28 | XMS | Encounter Summary ---
Demographics + + + | Address | [address] | | | [place] [address] | + + + | Home Phone | | + + + | Preferred Language | Unknown | + + + | Marital Status | | + + + | Jew Affiliation | 1013 | + + + | Race | Unknown | + + + | Ethnic Group | Unknown | + + + Author + + + | Author | [facility] | | | and [place] | + + + | Organization | [facility] | | [...] [address] | | | | | [facility] | | | | | [address] | | + + + + + | Ellen Rogers | ECON | [address] | | | | | [place] | | + + + + + | Gisell Rogers | ECON | Unknown | | + + + + + Care Team Providers + +------+ + | Care Store Operations Associate Name | Role | Phone | + +------+ + | David Estrada MD | PCP | Unavailable | + +------+ + Reason for Visit +--------+--------+ + | Reason | Onset | Comments | | | Date | | +--------+--------+ + | Other | 10/08/ | Dr Cabrera won't see patient | | | 2012 | | +--------+--------+ + Encounter Details +--------+ + + + + | Date | Type | Department | Care Team | Description | +--------+ + + + + | 10/08/ | Telephone | [facility] [place] | [facility], | Other (Dr Cabrera | | 2012 | | GASTROENTEROLOGY | NAWAF Egan [address] | won't see patient) | | | | [address] | [address] | | | | | [address] [place], [place] | [place], [place] | | | | | [address] | [address] | | | | | [phone] | | | +--------+ + + + [...] this encounter Miscellaneous Notes Telephone Encounter - Julisa Howard ARNP - 10/08/2012 11:49 AM PDTDespite upper endo scopy showing obvious gastroparesis, gastric emptying study did not show delayed gastric emp tying. Due to this finding, but surgeon in [place] does not think you or candidate for gastr ic pacing. You should continue the gastroparesis diet. We can also discussed possible medi cation to help with her discomfort. He also continue to take your Phenergan. Thank youElec tronically signed by NAWAF Ya at 10/08/2012 11:50 AM PDTTelephone Encounter - Radha Bejarano - 10/08/2012 9:01 AM PDTJerrod Called from Dr Cabrera's office, he said Dr Cabrera will not see patient. He said after reviewing the gastric emptying study it was ac tually brisk. Not delayed. Also it is Dr Cabrera's policy that the patient must be off narcoti cs at least for a trial period before he will see them. If there are new additional studies that prove he has delayed gastric emptying he would be happy to see patient. Also wanted to let you know that Dr Selby at [facility] does the Gastric pacing. documented in this encounter Plan of Treatment +--------+---------+ + + + | Date | Type | Specialty | Care Team | Description | +--------+---------+ + + + | 01/04/ | Office | Nephrology | Jaren Pelayo MD | | | 2020 | Visit | | [address] | | | | | | [address] [place] | | | | | | [address] | | | | | | | | +--------+---------+ + + + documented as of this encounter Visit Diagnoses Not on filedocumented in this encounter"
--- OUTSIDE RECORDS SUMMARY | ~2019-10-28 | XMS | Encounter Summary ---
Demographics + + + | Address | [address] | | | [place] [address] | + + + | Home Phone | | + + + | Preferred Language | Unknown | + + + | Marital Status | | + + + | Hoahaoism Affiliation | 1013 | + + + | Race | Unknown | + + + | Ethnic Group | Unknown | + + + Author + + + | Author | [facility] | | | and [place] | + + + | Organization | [facility] | | | and [place] | + + + | Address | Unknown | + + + | Phone | Unavailable | + + + Support + + + + + | Name | Relationship | Address | Phone | + + + + + | Deysi Montelongo | ECON | [address] | | | | | [place] | | | | | [address] | | + + + + + | Ellen Rogers | ECON | [address] | | | | | [place] | | + + + + + | Gisell Rogers | ECON | Unknown | | + + + + + Care Team Providers + +------+ + | Care Entry Level Sales Representative Name | Role | Phone | + +------+ + | David Estrada MD | PCP | Unavailable | + +------+ + Encounter Details +--------+ + + + + | Date | Type | Department | Care Team | Description | +--------+ + + + + | 08/04/ | Hospital | [facility] IP | Conversion | Pain | | 2016 | Encounter | CONVERSION DEP [address] | Transaction, | | | | | [address] | Provider Unknown | | | | | [facility] | [phone] | | | | | [address] | | | | | | [phone] | | | +--------+ + + + [...] + +---------+ + + | cinacalcet | TAKE ONE TABLET BY | | 0 | 11/02/19 | | | (SENSIPAR) 30 mg | MOUTH TWICE A DAY | | | 13 | | | tablet | | | | | | + + + +---------+ + + | clopidogrel | Take 75 mg by mouth | | 0 | | | | (PLAVIX) 75 mg | Daily. | | | | | | tablet | | | | | | + + + +---------+ + + | mycophenolate | Take 4 capsules by | | 0 | 10/15/19 | | | (CELLCEPT) 250 mg | mouth 2 (two) times | | | 13 | | | capsule | daily. | | | | | + + + +---------+ + + | nitroglycerin | Place 0.4 mg under | | 0 | | | | (NITROSTAT) 0.4 mg | the tongue every 5 | | | | | | SL tablet | minutes as needed. | | | | | + + + +---------+ + + | tacrolimus | 1 mg in the morning | | 0 | 10/17/19 | | | (PROGRAF) 1 mg | and 1 mg at night | | | 13 | | | capsule | | | | | | + + + +---------+ + + | albuterol | Inhale 2 puffs into | | 0 | | | | (VENTOLIN HFA) 90 | the lungs every 6 | | | | 7 | | mcg/puff inhaler | hours as needed. | | | | | + + + +---------+ + + | alendronate | Take 1 tablet by | | 0 | 07/26/19 | | | (FOSAMAX) 35 mg | mouth every 7 days. | | | 16 | 9 | | tablet | | | | | | + + + +---------+ + + | amlodipine | Take 10 mg by mouth | | 0 | | | | (NORVASC) 10 MG | Daily. | | | | 7 | | tablet | | | | | | + + + +---------+ + + | atorvaSTATin | Take 1 tablet by | | 0 | 01/20/20 | | | (LIPITOR) 20 mg | mouth nightly. | | | 14 | 9 | | tablet | | [...] + +---------+ + + | | Take by mouth. Take | | 0 | 01/07/20 | | | HYDROcodone-acetamin | 1 tablet by mouth | | | 13 | 9 | | ophen (NORCO) 5-325 | Every 4 Hours As | | | | | | mg per tablet | Needed for Pain. | | | | | + + [...] + + | LORazepam (ATIVAN) | Take by mouth. Take | | 0 | 10/17/19 | | | 1 mg tablet | 1 mg by mouth 4 | | | 13 | 9 | | | Times Daily As | | | | | | | Needed. For nausea | | | | | + + + +---------+ + + | LORazepam (ATIVAN) | Take 1 mg by mouth | | 0 | | | | 1 mg tablet | every 6 hours as | | | | 7 | | | needed. | | | | | + + + +---------+ + + | metoprolol | Take by mouth. Take | | 0 | 01/07/20 | | | tartrate (LOPRESSOR) | 2 tablets by mouth | | | 13 | 9 | | 50 mg tablet | 2 Times Daily. | | | | | | | Indications: take | | | | | | | 50mg in morning and | | | | | | | 100mg at night | | | | | + + [...] +---------+ + + | pramipexole | Take 1 tablet by | | 0 | 11/14/19 | | | (MIRAPEX) 0.5 MG | mouth 3 Times Daily | | | 13 | 9 | | tablet | As Needed. | | | | | + + + +---------+ + + | pramipexole | Take 0.5 mg by mouth | | 0 | | | | (MIRAPEX) 0.5 MG | 3 times daily. | | | | 7 | | tablet | | | | | | + + + +---------+ + + | predniSONE | Take by mouth. Take | | 0 | 12/20/19 | | | (DELTASONE) 5 mg | 1 tablet by mouth | | | 13 | 9 | | tablet | Daily. Prevents | | | | | | | rejection. Take with | | | | | | | food. | | | | | + + [...] 2020 | Visit | | [address] [facility] | | | | | | [address] [place] | | | | | | [address] | | | | | | | | +--------+---------+ + + + documented as of this encounter Procedures + +--------+ + + + | Procedure Name | Priori | Date/Time | Associated Diagnosis | Comments | | | ty | | | | + +--------+ + + + | IR ANGIO UPPER/LOWER | Routin | 02/10/2016 | | Results for this | | EXTREMITY | e | 1:21 AM | | procedure are in the | | | | PDT | | results section. | + +--------+ + + + documented in this encounter Results IR Angio Upper/Lower Extremity (02/10/2016 1:21 AM PDT) + + | Specimen | + + | | + + + + + | Narrative | Performed At | + + + | This is a non-reportable procedure without a radiologist report and | | | is used for image storage only | | + + + + + | Procedure Note | + + | Billy Butler - 12/05/2018 11:17 AM PDT This is a non-reportable procedure | | without a radiologist report and isused for image storage only | + + documented in this encounter Visit Diagnoses + + | Diagnosis | + + | Pain Generalized pain | + + documented in this encounter"
--- OUTSIDE RECORDS SUMMARY | ~2019-10-28 | XMS | Encounter Summary ---
Demographics + + + | Address | [address] | | | [place] [address] | + + + | Home Phone | | + + + | Preferred Language | Unknown | + + + | Marital Status | Single | + + + | Restorationist Affiliation | CHR | + + + | Race | White | + + + | Ethnic Group | Not or | + + + Author + + + | Author | [facility] | + + + | Organization | [facility] | + + + | Address | Unknown | + + + | Phone | Unavailable | + + + Support + + + + + | Name | Relationship | Address | Phone | + + + + + | Krissy Rogers | BRADEN | [place] [address] | | + + + + + | Bay Rogers | ECON | Unknown | | + + + + + Care Team Providers + +------+ + | Care Restaurant Floor Manager Name | Role | Phone | + +------+ + | Bola Chaudhry MD | PCP | | + +------+ + Reason for Visit Consultation (Routine) +--------+--------+ + + + + | Status | Reason | Specialty | Diagnoses / | Referred By | Referred To | | | | | Procedures | Contact | Contact | +--------+--------+ + + + + | Closed | | Ophthalmology | Diagnoses | Mio, | Saadia, | | | | | Low vision | Maria Elena, | David, OD | | | | | evaluation | [address] | | | | | | [address] | [address] | | | | | | [address] | [place], [place] | | | | | | [place], [place] | [address] Phone: | | | | | | [address] | [phone] | | | | | | Phone: | Fax: | | | | | | [phone] | [phone] | | | | | | Fax: | | | | | | | [phone] | | +--------+--------+ + + + + Encounter Details +--------+---------+ + + + | Date | Type | Department | Care Team | Description | +--------+---------+ + + + | 05/18/ | Office | [facility] | David Zee, OD | Visual impairment in | | 2017 | Visit | [place] [facility] | [address] | both eyes (Primary | | | | [address] | [place] [address] | Dx); Proliferative | | | | Mailcode: [facility] | [phone] | diabetic retinopathy | | | | [facility] | | without macular | | | | and Healing, | | edema associated | | | | Building | | with type 2 diabetes | | | | Floor [place], [place] | | mellitus ([facility]); H/O | | | | [address] | | [address] (retinal | | | | [phone] | | detachment) | +--------+---------+ + + + Social History + +-------+ +--------+ + | Tobacco Use | Types | Packs/Day | Years | Date | | | | | Used | | + +-------+ +--------+ + | Former Smoker | | | | Quit: 04/23/2010 | + +-------+ +--------+ + + + + | Sex Assigned [...] documented as of this encounter Progress Notes David Zee, OD - 05/18/2016 1:15 PM PSTFormatting of this note might be different from joseluis angel. 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 S/p 09/2012 kidney transplant Continuing w the insulin pump PCP: Lizbet Jamison MD, [place] [facility] Tank[employer] Truck Driver:Dorota Lepe MD, [place] [employer] Supervisor: Jakub Pelayo MD, [place], [place] Pretzel Twisting Machine Operator: Alonso Hitchcock MD 45 year old patient from [facility], [place] referred by Dr. Jose Lieberman 01/20/2016 for evaluatio n of vision impairment>>>>>IMPRESSION: 45 y.o. male with Ophthalmologic Problems 1) s/p PPV/PPL/retinectomy/EL/gas OS on 12/02/2008 doing well from eye stand point -retina s table and attached 2) Sulcus IOL OS good position - stable may benefit from low vision evaluation - he will se e if this can be done locally if not can see Dr. Zee 3) Vision loss OD 2008 most likely due to severe hypoperfusion during dialysis - had brain MRI and findings and exam reviewed in the past with Dr. Roman - stable without recovery but no further decline PLAN: Observe for now Refer to low vision - locally if possible or see Dr. Zee - info given Letter to Dr. Alonso Hitchcock and PCP Dr. Chaudhry Call for decreased vision, increased distortion, increased pain, new floaters or flashing l ights Follow up: prn continue yearly f/u locally or with me Accompanied today by Felicita. Using REFRESH OPTIVE GEL as needed for tired/dry eyes after prolonged computer use. Chief Complaint: I struggle to do everything associated with vision; this has been true for some time. I have multiple vision assistive devices from the [employer] including vision alternative devices such as my mobility cane (see inventory of devices below). My vision definitely limits my movement and getting exercise, altho I di have a treadmill, and the lack of the consistent presence of sidewalks in my neighborhood makes it even more r isky to attempt to walk into town. Some of my physicians have mentioned how they would like for me to walk more to help manage my diabetes. Primary Care Practitioner: Bola Chaudhry MD Past Medical History Diagnosis Date Nephritis and nephropathy, not specified as acute or chronic, with unspecified patholog ical lesion in kidney Type I (juvenile type) diabetes mellitus without mention of complication, not stated as uncontrolled Unspecified essential hypertension Unspecified retinal detachment Current Outpatient Prescriptions Medication aspirin EC 81 mg Oral tablet,delayed release (DR/EC) Cholecalciferol, Vitamin D3, 3,000 unit Oral tablet cinacalcet 30 mg Oral tablet clopidogrel 75 mg Oral tablet hydrochlorothiazide 12.5 mg oral tablet HYDROcodone-acetaminophen 5-325 mg Oral tablet Insulin Glargine (LANTUS SOLOSTAR) 300 unit/3 mL Subcutaneous Insulin Pen LEVOTHYROXINE ORAL LORazepam 1 mg Oral tablet losartan 50 mg Oral tablet metoprolol tartrate 50 mg Oral tablet mycophenolate 250 mg Oral capsule NOVOLOG SUBQ omeprazole 20 mg Oral capsule,delayed release(DR/EC) predniSONE 5 mg Oral tablet promethazine 25 mg Oral Tablet REGLAN ORAL tacrolimus 1 mg Oral capsule zolpidem 5 mg Oral tablet No current facility-administered medications for this visit. Past Surgical History Procedure Laterality Date Vitrectomy Retina laser Scleral buckle (sb) Kidney transplant 2012 PT REPORTS THAT EYE-RELATED PAIN = 0. Reviewed systems for: fever, wt. loss, ENT, cardiovascular, pulmonary, GI, urinary, neurolo gic, endocrine, bleeding/blood disorders, AIDS/HIV, cancer/tumors, arthritis - all were nega tive except as noted above. There were no vitals taken for this visit. Habitual magnifiers/assistive devices: 1. Rocket [employer] CCTV FROM ABOUT 2009 used daily including to see his credit card numbers when ordering. 2. Formerly used a TIM, now using a CANDY 5 palm top CCTV from the [employer]; USED for quick reference on his phone or printed standard font. Also uses the Supersonice camera w zoom function like to read a wall menu. 3. Mobility cane; was trained by Thuan Simpson. 4. ZOOMTEXT 10.1 on his WINDOWS 7 5. DROID smartphone w voice over and magnifying camera function w GOOGLE VOICE or TalkPlusIC E; plus wireless CLOUD PRINT 6. Auto-pay of common bills thru his bank 7. Audio books thru [employer] used extensively 8. TV online 9. Treadmill 10. penpal scanner Trial with magnification or spectral filters as follows: 1. Discussion of OrCam digital video capture vision-replacement prosthetic device. This dev ice uses optical character recognition (OCR) [id number] hardware and software to [potent ially] allow independent access to printed text. Some versions can be programmed to recogniz e faces. Gave product & contact information and interet address for further education. 2. Discussion of [employer] and [employer]. It sounds like his DROID smartphone has similar capability. 3. Discussion of the significant advantages of pairing with a guide dog from a qualified tr aining program such as [employer] ---discussed at length today. Gave applicati on packet and contact information. Strongly encouraged to consider, research and contact [employer] as to the next step. 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 Assessment & Plan: legally blind w profound loss of vision. Disabled for all Activities of Daily Living. Quite well equipped, trained, and experienced in the use of various video magnification dev ices for brief periods of visual reading of printed text, computer software for both visual & audio input and output, vision bypass audio books for education and entertainment, online auto-pay of common monthly bills, human aides for various daily tasks & needs, a mobility ca ne, and more. However, his mobility remains quite restricted due, in part, to the lack of sidewalks in hi s immediate area which renders his use of a mobility cane less effective to enable him to ex ercise as a part of his diabetes management. Gave application packet for [employer] with strong encouragement to follow joseluis ratliff. RTC approximately one year, hopefully w/his new guide dog. See Dr Lieberman per schedule/PRN changes. Start: 2:00 PM End: 3:21 PM 50% or more of my total, i.e., [id number], time with my patient, as recorded above, was s pent in my counseling, coordination of care, and explanation of treatment options while subt racting any minutes given to testing procedures alone, including the refraction, if performe d. The remainder of my face to face time was spent counseling my patient regarding the daily i mpact of their documented eye & vision diagnoses & disabilities, and the options for treatme nt/management, in coordination with their other eye care providers and affiliated health car e providers. Khadar. Zee, OD Vision Rehabilitation [facility] [place] documented in this encoun ter Plan of Treatment +--------+---------+ + + + | Date | Type | Specialty | Care Team | Description | +--------+---------+ + + + | 01/26/ | Office | Ophthalmology | Maria Elena Lieberman, | | | 2019 | Visit | | [address] | | | | | | [address] | | | | | | [place], [place] | | | | | | [address] | | | | | | [phone] | | | | | | | | +--------+---------+ + + + documented as of this encounter Visit Diagnoses + + | Diagnosis | + + | Visual impairment in both eyes - Primary Unqualified visual loss, both eyes | + + | Proliferative diabetic retinopathy without macular edema associated with type 2 | | diabetes mellitus (HCC) | + + | H/O RD (retinal detachment) | + + documented in this encounter
--- OUTSIDE RECORDS SUMMARY | ~2019-10-28 | XMS | Encounter Summary ---
Demographics + + + | Address | [address] | | | [place] [address] | + + + | Home Phone | | + + + | Preferred Language | Unknown | + + + | Marital Status | Single | + + + | Druze Affiliation | CHR | + + + | Race | White | + + + | Ethnic Group | Not or | + + + Author + + + | Author | [facility] | + + + | Organization | [facility] | + + + | Address | Unknown | + + + | Phone | Unavailable | + + + Support + + + + + | Name | Relationship | Address | Phone | + + + + + | Krissy Rogers | BRADEN | [place] [address] | | + + + + + | Bay Rogers | ECON | Unknown | | + + + + + Care Team Providers + +------+ + | Care Laundry Room Attendant Name | Role | Phone | + +------+ + | Jono Arambula | PCP | | + +------+ + Encounter Details +--------+ + + + + | Date | Type | Department | Care Team | Description | +--------+ + + + + | 01/20/ | Outside | [facility] | Ameya Gonzalez | | | 2013 | Collaborati | Clarita Washburn | [facility] | | | | ve Order | [address] | TRANSPLANT [address] | | | | [address] [place], [place] | [address] | | | | | [address] | [place] [address] | | | | | [phone] | [phone] | | | | | | | [...] | 01/26/ | Office | Ophthalmology | Flaxel, Maria Elena, | | | 2019 | Visit | | [address] | | | | | [address] | | | | | | [place], [place] | | | | | | [address] | | | | | | [phone] | | | | | | | | +--------+---------+ + + + documented as of this encounter Visit Diagnoses + + | Diagnosis | + + | Kidney replaced by transplant - Primary | + + | Encounter for long-term (current) use of other medications | + + | Polycythemia, secondary | + + documented in this encounter"
--- OUTSIDE RECORDS SUMMARY | ~2019-10-28 | XMS | Encounter Summary ---
Demographics + + + | Address | [address] | | | [place] [address] | + + + | Home Phone | | + + + | Preferred Language | Unknown | + + + | Marital Status | | + + + | Nondenominational Affiliation | 1013 | + + + | Race | Unknown | + + + | Ethnic Group | Unknown | + + + Author + + + | Author | [facility] | | | and [place] | + + + | Organization | [facility] | | [...] [place] | | | | | [address] | | + + + + + | Ellen Rogers | ECON | [address] | | | | | [place] | | + + + + + | Gisell Rogers | ECON | Unknown | | + + + + + Care Team Providers + +------+ + | Care Boots And Shoes Supervisor Name | Role | Phone | + +------+ + PCP | Unavailable | + +------+ + Encounter Details +--------+ + + + + | Date | Type | Department | Care Team | Description | +--------+ + + + + | 12/21/ | Hospital | [facility] | Ashley De Dios | | | 2008 | Encounter | MED CTR [address] | M, DO [address] | | | | | [place], | [address] [place] | | | | | [place] [address] | [place] [address] | | | | | [phone] | [phone] | | | | | | | [...] 2020 | Visit | | [address] [facility] [address] | | | | | | [address] [place] | | | | | | [address] | | | | | | | | +--------+---------+ + + + documented as of this encounter Visit Diagnoses Not on filedocumented in this encounter"
--- OUTSIDE RECORDS SUMMARY | ~2019-10-28 | XMS | Encounter Summary ---
Demographics + + + | Address | [address] | | | [place] [address] | + + + | Home Phone [...] Krissy Rogers | BRADEN | [place] [address] | | + + + + + | Bay Rogers | ECON | Unknown | | + + + + + Care Team Providers + +------+ + | Care Pulmonary Fellow Name | Role | Phone | + +------+ + | Jono Arambula | PCP | | + +------+ + Reason for Visit + + + | Reason | Comments | + + + | Diabetic Eye | | | Examination | | + + + Benefits Check (Routine) +--------+--------+ + + + + | Status | Reason | Specialty | Diagnoses / | Referred By | Referred To | | | | | Procedures | Contact | Contact | +--------+--------+ + + + + | Closed | | Ophthalmology | Diagnoses | Sellers, | Flaxel, | | | | | diabetic | MD Lizbet | MD Maria Elena | | | | | | [facility] | [address] | | | | | | Medicine | [address] | | | | | | [facility] [address] | | | | | | [address] | [place], [place] | | | | | | [address] | [address] | | | | | | [place], | Phone: | | | | | | [place] [address] | [phone] | | | | | | Phone: | Fax: | | | | | | [phone] | [phone] | | | | | | Fax: | | | | | | | [phone] | | +--------+--------+ + + + + Encounter Details +--------+---------+ + + + | Date | Type | Department | Care Team | Description | +--------+---------+ + + + | 01/19/ | Office | [facility] | Maria Elena Balbuena, | Proliferative | | 2016 | Visit | [facility] at | [address] | diabetic retinopathy | | | | Annabelle [address] | without macular | | | | [address] | [place], [place] | edema associated | | | | [facility] | [address] | with type 2 diabetes | | | | floor [place], [place] | [phone] | mellitus (HCC) | | | | [id number] | | (Primary Dx) | +--------+---------+ + + + Social History [...] + documented as of this encounter Progress Myron Amaral - 01/20/2016 1:34 PM PDTFormatting of this note might be different from the elvira johnson. [facility] Progress Note 01/20/2016 CC: Diabetic Eye Examination Initial History: Referred back by Dr. Chaudhry at [facility] for diabetic retinopathy eye exam. Crystal quinones mentioned he notices his vision at times has gotten worse and cannot see well. Patient notices off/on right eye has FB sensation that irritates the eye Last 3 ambulatory procedures on record: HPI: Wilson Rogers is a 45 y.o. 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 Current Outpatient Prescriptions (Other) Medication Sig aspirin EC Take by mouth. Take 81 mg by mouth Daily. Cholecalciferol (Vitamin D3) Take 5,000 Units by mouth. Take 1 capsule by mouth Daily. cinacalcet Take by mouth. Take 60 mg by mouth Daily 1800. clopidogrel Take by mouth. Take 1 tablet by mouth Daily. hydrochlorothiazide Take by mouth. HYDROcodone-acetaminophen Take by mouth. Take 1 tablet by mouth Every 4 Hours As Neede d for Pain. insulin glargine Inject 35 Units under the skin (SUBC) once daily at bedtime. LEVOTHYROXINE ORAL Take 50 mcg by mouth once daily. LORazepam Take by mouth. Take 1 mg by mouth 4 Times Daily As Needed. For nausea losartan Take 25 mg by mouth. Take 1 tablet by mouth 3 Times Daily. metoprolol tartrate Take by mouth. Take 2 tablets by mouth 2 Times Daily. Indications: take 50mg in morning and 100mg at night mycophenolate Take by mouth. Take 3 capsules by mouth 2 Times Daily. NOVOLOG SUBQ Inject under the skin (SUBC). Sliding scale with dinner omeprazole Take by mouth. Take 1 capsule by mouth Daily. predniSONE Take by mouth. Take 1 tablet by mouth Daily. Prevents rejection. Take with food. promethazine Take 1 Tab by mouth four times daily as needed for nausea/vomiting. REGLAN ORAL Take 5 mg by mouth four times daily (before each meal and at bedtime). tacrolimus Take by mouth. Take 1-2 capsules by mouth 2 Times Daily. Take 1mg in the mo rning and 2mg in the evening. zolpidem Take by mouth. Take 5 mg by mouth At Bedtime As Needed. Past Medical History Diagnosis Date Unspecified retinal detachment Unspecified essential hypertension Nephritis and nephropathy, not specified as acute or chronic, with unspecified patholog ical lesion in kidney Type I (juvenile type) diabetes mellitus without mention of complication, not stated as uncontrolled Past Surgical History Procedure Laterality Date Vitrectomy Retina laser Scleral buckle (sb) Kidney transplant 2012 Social History Substance Use Topics Smoking status: Former Smoker Quit date: 04/23/2010 Smokeless tobacco: Not on file Alcohol Use: Not on file See Ophthalmology Module for Examination Diagnostics Ordered Right Left OCT CMT 218 atrophy no change CMT: 275 No IRF, SRF or Sub-RPE fluid, ERM IMPRESSION: 45 y.o. male with Ophthalmologic Problems 1) [...] continue yearly f/u locally or with me Attestations: The electrostatic powder coating technician, under the supervision of the physician, is responsible for performing the f ollowing sections: RFV, ROS, PMH, PSH, SocHx, FH, Med list, Base Ophth Exam. The attending physician is responsible for the entire content of the note and has personall y performed the HPI and the physical examination MARIA ELENA BALBUENA MD Tdocumented in this encounter Plan of Treatment +--------+---------+ + + + | Date | Type | Specialty | Care Team | Description | +--------+---------+ + + + | 01/26/ | Office | Ophthalmology | Maria Elena Balbuena, | | | 2019 | Visit | | [address] | | | | | | [address] | | | | | | [place], [place] | | | | | | [address] | | | | | | [phone] | | | | | | | | +--------+---------+ + + + + + +--------+ + + | Name | Type | Priori | Associated Diagnoses | Order Schedule | | | | ty | | | + + +--------+ + + | CMPTR OPHTH DX IMG | Procedures | Routin | Proliferative | Expected: | | POST SEGMT | | e | diabetic retinopathy | 01/20/2016, Expires: | | | | | without macular | 07/19/2017 | | | | | edema associated | | | | | | with type 2 diabetes | | | | | | mellitus (HCC) | | + + +--------+ + + documented as of this encounter Visit Diagnoses + + | Diagnosis | + + | Proliferative diabetic retinopathy without macular edema associated with type 2 | | diabetes mellitus (HCC) - Primary | + + documented in this encounter"
--- OUTSIDE RECORDS SUMMARY | ~2019-10-28 | XMS | Encounter Summary ---
Demographics + + + | Address | [address] | | | [place] [address] | + + + | Home Phone | | + + + | Preferred Language | Unknown | + + + | Marital Status | Single | + + + | Pentecostal Affiliation | CHR | + + + | Race | White | + + + | Ethnic Group | Not or | + + + Author + + + | Author | [facility] | + + + | Organization | [facility] | + + + | Address | Unknown | + + + | Phone | Unavailable | + + + Support + + + + + | Name | Relationship | Address | Phone | + + + + + | Krissy Rogers | BRADEN | [place] [address] | | + + + + + | Bay Rogers | ECON | Unknown | | + + + + + Care Team Providers + +------+ + | Care Mainspring Barrel Assembly Cleaner Name | Role | Phone | + +------+ + | Bola Chaudhry MD | PCP | | + +------+ + Encounter Details +--------+ + + + + | Date | Type | Department | Care Team | Description | +--------+ + + + + | 08/25/ | Document-Sc | UNKNOWN DEPARTMENT | Other, Faculty | | | 2008 | anned | [address] | [phone] | | | | | [address] | | | | | | [place], [place] | | | | | | [address] | | | +--------+ + + + [...] [address] | | | | | | [place], [place] | | | | | | [address] | | | | | | [phone] | | | | | | | | +--------+---------+ + + + documented as of this encounter Visit Diagnoses Not on filedocumented in this encounter"
--- OUTSIDE RECORDS SUMMARY | ~2019-10-28 | XMS | Encounter Summary ---
Demographics + + + | Address | [address] | | | [place] [address] | + + + | Home Phone | | + + + | Preferred Language | Unknown | + + + | Marital Status | Single | + + + | Baptist Affiliation | CHR | + + + | Race | White | + + + | Ethnic Group | Not or | + + + Author + + + | Author | [facility] | + + + | Organization | [facility] | + + + | Address | Unknown | + + + | Phone | Unavailable | + + + Support + + + + + | Name | Relationship | Address | Phone | + + + + + | Krissy Rogers | BRADEN | [place] [address] | | + + + + + | Bay Rogers | ECON | Unknown | | + + + + + Care Team Providers + +------+ + | Care Cage Supervisor Name | Role | Phone | + +------+ + | Jono Arambula | PCP | | + +------+ + Reason for Visit AUTH/CERT +--------+--------+ + + + + | Status | Reason | Specialty | Diagnoses / | Referred By | Referred To | | | | | Procedures | Contact | Contact | +--------+--------+ + + + + | Closed | | | | | Cei Short | | | | | | | Bruce CLINTON | | | | | | | Stephanie Burr | | | | | | | [facility] | | | | | | | Clar[place] | | | | | | | Annabelle Jamison | | | | | | | [place], [place] | | | | | | | [address] | | | | | | | Phone: | | | | | | | [phone] | | | | | | | Fax: | | | | | | | [phone] | +--------+--------+ + + + + Encounter Details +--------+ + + + + | Date | Type | Department | Care Team | Description | +--------+ + + + + | 10/21/ | Hospital | [facility] | Maria Elena Lieberman, | | | 2008 | Encounter | [address] | [address] | | | | [address] | [address] | | | | | [place]es | [place], [place] | | | | | [place], [place] | [address] | | | | | [address] | [phone] | | | | | | | [...] + + documented as of this encounter Discharge Yoko Nolen - 10/21/2008 9:25 AM PDT documented in this encounter Medications at Time of Discharge + + + +---------+ + + | Medication | Sig | Dispensed | Refills | Start | End Date | | | | | | Date | | + + + +---------+ + + | Insulin Glargine | Inject 35 Units | | 0 | | | | (LANTUS SOLOSTAR) | under the skin | | | | | | 300 unit/3 mL | (SUBC) once daily at | | | | | | Subcutaneous Insulin | bedtime. | | | | | | Pen | | | | | | + + + +---------+ + + | LEVOTHYROXINE ORAL | Take 150 mcg by | | 0 | | | | | mouth once daily. | | | | | + + + +---------+ + + | NOVOLOG SUBQ | Inject under the | | 0 | | | | | skin (SUBC). | | | | | | | Sliding scale with | | | | | | | dinner | | | | | + + + +---------+ + + | | Take by mouth. Take | 20 | 0 | 10/22/19 | | | hydrocodone-acetamin | 1-2 Tabs every 4 | | | 09 | 9 | | ophen 5-500 mg Oral | hours as needed for | | | | | | Tablet | pain | | | | | + + + +---------+ + + | ofloxacin | Instill 1 Drop into | 5cc | 0 | 10/22/19 | | | (OCUFLOX) 0.3 % | the left eye four | | | 09 | 9 | | Ophthalmic Drops | times daily. In | | | | | | | operative eye | | | | | + + + +---------+ + + | prednisoLONE | Instill 1 Drop into | 10cc | 1 | 10/22/19 | | | acetate 1 % | the left eye four | | | 09 | 9 | | Ophthalmic Drops, | times daily. In | | | | | | Suspension | operative eye | | | | | + + + +---------+ + + documented as of this encounter Progress Notes Other, Faculty - 10/21/2008 9:25 AM PDT documented in this encounter Plan of Treatment +--------+---------+ + + + | Date | Type | Specialty | Care Team | Description | +--------+---------+ + + + | 01/26/ | Office | Ophthalmology | Maria Elena Lieberman, | | | 2019 | Visit | | [address] | | | | | | [address] | | | | | | [place], [place] | | | | | | [address] | | | | | | [phone] | | | | | | | | +--------+---------+ + + + documented as of this encounter Procedures + +--------+ + + + | Procedure Name | Priori | Date/Time | Associated Diagnosis | Comments | | | ty | | | | + +--------+ + + + | LAB REPORTS | | 10/21/2008 | | Results for this | | | | 10:00 AM | | procedure are in the | | | | PDT | | results section. | + +--------+ + + + | ANESTHESIA/SEDATION | | 10/21/2008 | | Results for this | | | | 9:25 AM | | procedure are in the | | | | PDT | | results section. | + +--------+ + + + | ORDERS OTHER | | 10/21/2008 | | Results for this | | | | 9:25 AM | | procedure are in the | | | | PDT | | results section. | + +--------+ + + + | ORDERS OTHER | | 10/21/2008 | | Results for this | | | | 9:25 AM | | procedure are in the | | | | PDT | | results section. | + +--------+ + + + | LAB REPORTS | | 10/21/2008 | | Results for this | | | | 9:25 AM | | procedure are in the | | | | PDT | | results section. | + +--------+ + + + | OPERATION RECORD | | 10/21/2008 | | Results for this | | | | 12:00 AM | | procedure are in the | | | | PDT | | results section. | + +--------+ + + + | ANESTHESIA/SEDATION | | 10/20/2008 | | Results for this | | | | 12:00 AM | | procedure are in the | | | | PDT | | results section. | + +--------+ + + + documented in this encounter Results LAB REPORTS (10/21/2008 10:00 AM PDT) + + + | Narrative | Performed At | + + + | | | + + + + + | Procedure Note | + + | Yoko Fulton - 10/21/2008 10:00 AM PDT | | | + + ORDERS OTHER (10/21/2008 9:25 AM PDT) + + + | Narrative | Performed At | + + + | | | + + + + + | Procedure Note | + + | Other, Faculty - 10/21/2008 9:25 AM PDT | | | + + ORDERS OTHER (10/21/2008 9:25 AM PDT) + + + | Narrative | Performed At | + + + | | | + + + + + | Procedure Note | + + | Yoko Fulton - 10/21/2008 9:25 AM PDT | | | + + ANESTHESIA/SEDATION (10/21/2008 9:25 AM PDT) + + + | Narrative | Performed At | + + + | | | + + + + + | Procedure Note | + + | Donaldo Faculty - 10/21/2008 9:25 AM PDT | | | + + LAB REPORTS (10/21/2008 9:25 AM PDT) + + + | Narrative | Performed At | + + + | | | + + + + + | Procedure Note | + + | Donaldo, Faculty - 10/21/2008 9:25 AM PDT | | | + + OPERATION RECORD (10/21/2008 12:00 AM PDT) + + + | Narrative | Performed At | + + + | [id number] | | | [id number] | | | [id number] [place] [id number] | | | Date: 10/21/2008 Attending Surgeon: | | | Maria Elena Lieberman M.D. Superintendent Communications(s): | | | Sami Celis MD | | | Preoperative Diagnosis(es): 1. Proliferative vitreoretinopathy. | | | 2. Silicone oil-filled eye. 3. Tractional-rhegmatogenous | | | detachment s/p repair Postoperative Diagnosis(es): 1. | | | Proliferative vitreoretinopathy. 2. Silicone oil-filled eye. | | | 3. Prior tractional-rhegmatogenous detachment s/p repair | | | Procedure Performed: 1. Pars Plana vitrectomy 2. Removal of | | | silicone oil from the vitreous cavity and anterior chamber. | | | Anesthesia: Retrobulbar block with monitored anesthesia care. | | | Complications: None. Specimens: None. Implants: None. | | | Indications: Mr. Wilson Rogers has diabetes and has had a | | | complicated eye history. In his left eye, he has previously had | | | significant proliferative diabetic retinopathy with traction | | | detachment and subsequent proliferative vitreoretinopathy. He has | | | undergone successful retinal reattachment surgery with implantation | | | of silicone oil. The silicone oil has been in a sufficient | | | period of time to allow adequate retinal reattachment, and he | | | undergoes silicone oil removal today. A discussion of the risks, | | | benefits, and alternatives to surgery was held in clinic. Informed | | | consent paperwork was done at that time. Procedure: The | | | patient was greeted in the preoperative area. Informed consent | | | paperwork was confirmed to be in the chart. All of his questions | | | were again answered, and he again voiced consent for the procedure. | | | His operative eye was marked. He was taken to the operating | | | room where the entire surgical team held a pause in which the | | | appropriate patient, site, and surgery were agreed upon. | | | Anesthesia induced gentle sedation and monitored vitals for the | | | remainder of the case. A retrobulbar block was administered to | | | the left eye consisting of a 1:1 mixture of 0.75% Marcaine and 2% | | | lidocaine with Amphadase. The eye was prepped and sterilely draped | | | in the usual fashion. A 0.3 forceps and Orquidea scissors were | | | used to initiate limited conjunctival peritomies at approximately 4 | | | o'clock and approximately 10 o'clock. Calipers were used to | | | measure a distance of 4 mm posterior to the limbus at these sites. | | | At both positions, a 7-0 Vicryl suture was preplaced in the | | | sclera in a mattress fashion. The MVR blade was used to enter | | | sclera at these 2 positions forming a sclerotomy. The handheld | | | infusion cannula was checked and inserted at the 4 o'clock | | | position. The oil extrusion cannula was inserted at the 10 o'clock | | | position. Silicone oil was then removed completely from the | | | posterior chamber without difficulty. The light pipe and scleral | | | depressor were used to thoroughly inspect the retina which | | | demonstrated some preretinal fibrosis but was felt to be stably | | | attached. Sclerotomies were then closed with the pre-placed 7-0 | | | Vicryl sutures. Attention was turned to the anterior chamber | | | where a small silicone bubble had persisted since the prior | | | surgery. The MVR blade was used to form a paracentesis at both the | | | 10 o'clock and 2:30 o'clock positions. Balanced salt solution on a | | | cannula was used to inflate the anterior chamber while draining | | | from the second paracentesis site to allow escape of the silicone | | | bubble. This was without complication. The 2 sites were seen to | | | self-seal. Conjunctiva was closed with 7-0 Vicryl sutures. The | | | eye was cleaned and dressed with Maxitrol ointment and patched. | | | The patient tolerated the procedure well, and there were no | | | complications. Dr. Maria Elena Lieberman was present for the entirety | | | of the procedure. I certify that the services for which payment | | | is claimed were medically necessary and that no qualified resident | | | was available to perform the services. I further understand that | | | these services are subject to post-payment review by the Medicare | | | carrier. Advanced assistance was utilized in the portions of the | | | case where sophisticated manipulation of the globe or the | | | biomicroscopic visualization system was required for meeting the | | | surgical objectives. Sami Celis MD | | | Maria Elena Lieberman M.D. J / [id number] / [id number] / [id number] / | | | | | + + + + + | Procedure Note | + + | Sami Celis MD - 10/21/2008 12:00 AM PDT [id number] | | [id number] [place] | | [id number] Date: 10/21/2008 Attending Surgeon: | | Maria Elena Lieberman M.D. Superintendent Communications(s): Sami Celis MD | | Preoperative Diagnosis(es):1. Proliferative vitreoretinopathy.2. Silicone | | oil-filled eye.3. Tractional-rhegmatogenous detachment s/p repair Postoperative | | Diagnosis(es):1. Proliferative vitreoretinopathy.2. Silicone oil-filled eye.3. | | Prior tractional-rhegmatogenous detachment s/p repair Procedure Performed:1. Pars | | Plana vitrectomy2. Removal of silicone oil from the vitreous cavity and anterior | | chamber. Anesthesia:Retrobulbar block with monitored anesthesia care. | | Complications:None. Specimens:None. Implants:None. Indications:Mr. Wilson Rogers has | | diabetes and has had a complicated eye history. In hisleft eye, he has previously had | | significant proliferative diabeticretinopathy with traction detachment and subsequent | | proliferativevitreoretinopathy. He has undergone successful retinal reattachmentsurgery | | with implantation of silicone oil. The silicone oil has been in asufficient period of | | time to allow adequate retinal reattachment, and heundergoes silicone oil removal today. | | A discussion of the risks, benefits,and alternatives to surgery was held in clinic. | | Informed consent paperworkwas done at that time. Procedure:The patient was greeted in | | the preoperative area. Informed consentpaperwork was confirmed to be in the chart. All | | of his questions wereagain answered, and he again voiced consent for the procedure. | | Hisoperative eye was marked. He was taken to the operating room where theentire | | surgical team held a pause in which the appropriate patient, site,and surgery were | | agreed upon. Anesthesia induced gentle sedation andmonitored vitals for the remainder | | of the case. A retrobulbar block wasadministered to the left eye consisting of a 1:1 | | mixture of 0.75% Marcaineand 2% lidocaine with Amphadase. The eye was prepped and | | sterilely drapedin the usual fashion. A 0.3 forceps and Orquidea scissors were used | | toinitiate limited conjunctival peritomies at approximately 4 o'clock andapproximately | | 10 o'clock. Calipers were used to measure a distance of 4 mmposterior to the limbus at | | these sites. At both positions, a 7-0 Vicrylsuture was preplaced in the sclera in a | | mattress fashion. The MVR bladewas used to enter sclera at these 2 positions forming a | | sclerotomy. Thehandheld infusion cannula was checked and inserted at the 4 | | o'clockposition. The oil extrusion cannula was inserted at the 10 o'clockposition. | | Silicone oil was then removed completely from the posteriorchamber without difficulty. | | The light pipe and scleral depressor were usedto thoroughly inspect the retina which | | demonstrated some preretinalfibrosis but was felt to be stably attached. Sclerotomies | | were thenclosed with the pre-placed 7-0 Vicryl sutures. Attention was turned to | | theanterior chamber where a small silicone bubble had persisted since the priorsurgery. | | The MVR blade was used to form a paracentesis at both the 10o'clock and 2:30 o'clock | | positions. Balanced salt solution on a cannulawas used to inflate the anterior chamber | | while draining from the secondparacentesis site to allow escape of the silicone bubble. | | This was withoutcomplication. The 2 sites were seen to self-seal. Conjunctiva was | | closedwith 7-0 Vicryl sutures. The eye was cleaned and dressed with Maxitrolointment | | and patched. The patient tolerated the procedure well, and therewere no complications. | | Dr. Maria Elena Lieberman was present for the entiretyof the procedure. I certify that the | | services for which payment is claimed were medicallynecessary and that no qualified | | resident was available to perform theservices. I further understand that these services | | are subject topost-payment review by the Medicare carrier. Advanced assistance | | wasutilized in the portions of the case where sophisticated manipulation ofthe globe or | | the biomicroscopic visualization system was required formeeting the surgical objectives. | | MD Maria Elena Hays M.D. MARQUEZ / [id number] / [id number] / [id number] /D: | | 10/23/2008T: 10/23/2008 | |Mr. Wilson Rogers has diabetes and has had a complicated eye history. In his | |left eye, he has previously had significant proliferative diabetic | |retinopathy with traction detachment and subsequent proliferative | |vitreoretinopathy. He has undergone successful retinal reattachment | |surgery with implantation of silicone oil. The silicone oil has been in a | |sufficient period of time to allow adequate retinal reattachment, and he | |undergoes silicone oil removal today. A discussion of the risks, benefits, | |and alternatives to surgery was held in clinic. Informed consent paperwork | |was done at that time. | | | | | |Procedure: | |The patient was greeted in the preoperative area. Informed consent | |paperwork was confirmed to be in the chart. All of his questions were | |again answered, and he again voiced consent for the procedure. His | |operative eye was marked. He was taken to the operating room where the | |entire surgical team held a pause in which the appropriate patient, site, | |and surgery were agreed upon. Anesthesia induced gentle sedation and | |monitored vitals for the remainder of the case. A retrobulbar block was | |administered to the left eye consisting of a 1:1 mixture of 0.75% Marcaine | |and 2% lidocaine with Amphadase. The eye was prepped and sterilely draped | |in the usual fashion. A 0.3 forceps and Orquidea scissors were used to | |initiate limited conjunctival peritomies at approximately 4 o'clock and | |approximately 10 o'clock. Calipers were used to measure a distance of 4 mm | |posterior to the limbus at these sites. At both positions, a 7-0 Vicryl | |suture was preplaced in the sclera in a mattress fashion. The MVR blade | |was used to enter sclera at these 2 positions forming a sclerotomy. The | |handheld infusion cannula was checked and inserted at the 4 o'clock | |position. The oil extrusion cannula was inserted at the 10 o'clock | |position. Silicone oil was then removed completely from the posterior | |chamber without difficulty. The light pipe and scleral depressor were used | |to thoroughly inspect the retina which demonstrated some preretinal | |fibrosis but was felt to be stably attached. Sclerotomies were then | |closed with the pre-placed 7-0 Vicryl sutures. Attention was turned to the | |anterior chamber where a small silicone bubble had persisted since the prior | |surgery. The MVR blade was used to form a paracentesis at both the 10 | |o'clock and 2:30 o'clock positions. Balanced salt solution on a cannula | |was used to inflate the anterior chamber while draining from the second | |paracentesis site to allow escape of the silicone bubble. This was without | |complication. The 2 sites were seen to self-seal. Conjunctiva was closed | |with 7-0 Vicryl sutures. The eye was cleaned and dressed with Maxitrol | |ointment and patched. The patient tolerated the procedure well, and there | |were no complications. Dr. Maria Elena Lieberman was present for the entirety | |of the procedure. | | | | | |I certify that the services for which payment is claimed were medically | |necessary and that no qualified resident was available to perform the | |services. I further understand that these services are subject to | |post-payment review by the Medicare carrier. Advanced assistance was | |utilized in the portions of the case where sophisticated manipulation of | |the globe or the biomicroscopic visualization system was required for | |meeting the surgical objectives. | | | | | | | | | |Sami Celis MD | | | | | | | | | |Maria Elena Lieberman M.D. | | | | | |MARQUEZ / ERWIN | |[id number] / [id number] / [id number] / | | | | | | | | | | | | | | | | | | | | | + + ANESTHESIA/SEDATION (10/20/2008 12:00 AM PDT) + + + | Narrative | Performed At | + + + | | | + + + + + | Procedure Note | + + | Other, Faculty - 10/20/2008 12:00 AM PDT | | | + + documented in this encounter Visit Diagnoses Not on filedocumented in this encounter"
--- OUTSIDE RECORDS SUMMARY | ~2019-10-28 | XMS | Encounter Summary ---
Demographics + + + | Address | [address] | | | [place] [address] | + + + | Home Phone | | + + + | Preferred Language | Unknown | + + + | Marital Status | | + + + | [employer]aritan Affiliation | 1013 | + + + | Race | Unknown | + + + | Ethnic Group | Unknown | + + + Author + + + | Author | [facility] | | | and [place] | + + + | Organization | [facility] | | | and [place] | + + + | Address | Unknown | + + + | Phone | Unavailable | + + + Support + + + + + | Name | Relationship | Address | Phone | + + + + + | Deysi Montelongo | ECON | [address] | | | | | [facility] [place] [place] | | | | | [address] | | + + + + + | Ellen Rogers | ECON | [address] | | | | | [place] | | + + + + + | Gisell Rogers | ECON | Unknown | | + + + + + Care Team Providers + +------+ + | Care Air Conditioning Technician Name | Role | Phone | + +------+ + | Fatuma Agee NP | PCP | | + +------+ + Encounter Details +--------+ + + + + | Date | Type | Department | Care Team | Description | +--------+ + + + + | 01/27/ | Orders Only | [facility] | Jaren Pelayo MD | Essential | | 2019 | | NEPHROLOGY [place] | [address] [place] | hypertension, benign | | | | [address] [place] | [address] [place], [place] | (Primary Dx); | | | | [address] [place], [place] | [address] | Hypothyroidism, | | | | [address] | | unspecified type; | | | | [phone] | | Kidney replaced by | | | | | | transplant | +--------+ + + + + Social [...] 02 | + +------+---+ + + + | Comments: quit in 2010 | + + + + +---------+ + | Alcohol [...] 2020 | Visit | | [address] [place] | | | | | | [address] [place] | | | | | | [address] | | | | | | | | +--------+---------+ + + + + +------+--------+ + + | Name | Type | Priori | Associated Diagnoses | Order Schedule | | | | ty | | | + +------+--------+ + + | Basic Metabolic | Lab | Routin | Essential | Expected: | | Panel | | e | hypertension, benign | 02/03/2019, Expires: | | | | | Hypothyroidism, | 01/28/2020 | | | | | unspecified type | | | | | | Kidney replaced by | | | | | | transplant | | + +------+--------+ + + | Renal Function Panel | Lab | Routin | Essential | Expected: | | | | e | hypertension, benign | 04/29/2019, Expires: | | | | | Hypothyroidism, | 01/28/2020 | | | | | unspecified type | | | | | | Kidney replaced by | | | | | | transplant | | + +------+--------+ + + | Magnesium | Lab | Routin | Essential | Expected: | | | | e | hypertension, benign | 04/29/2019, Expires: | | | | | Hypothyroidism, | 01/28/2020 | | | | | unspecified type | | | | | | Kidney replaced by | | | | | | transplant | | + +------+--------+ + + | CBC with | Lab | Routin | Essential | Expected: | | Differential | | e | hypertension, benign | 04/29/2019, Expires: | | | | | Hypothyroidism, | 01/28/2020 | | | | | unspecified type | | | | | | Kidney replaced by | | | | | | transplant | | + +------+--------+ + + | Tacrolimus ([id number]) | Lab | Routin | Essential | Expected: | | Trough | | e | hypertension, benign | 04/29/2019, Expires: | | | | | Hypothyroidism, | 01/28/2020 | | | | | unspecified type | | | | | | Kidney replaced by | | | | | | transplant | | + +------+--------+ + + | Parathyroid Hormone, | Lab | Routin | Essential | Expected: | | Intact | | e | hypertension, benign | 04/29/2019, Expires: | | | | | Hypothyroidism, | 01/28/2020 | | | | | unspecified type | | | | | | Kidney replaced by | | | | | | transplant | | + +------+--------+ + + | Urinalysis With | Lab | Routin | Essential | Expected: | | Microscopic | | e | hypertension, benign | 04/29/2019, Expires: | | | | | Hypothyroidism, | 01/28/2020 | | | | | unspecified type | | | | | | Kidney replaced by | | | | | | transplant | | + +------+--------+ + + | Protein/Creatinine | Lab | Routin | Essential | Expected: | | Ratio, Urine | | e | hypertension, benign | 04/29/2019, Expires: | | | | | Hypothyroidism, | 01/28/2020 | | | | | unspecified type | | | | | | Kidney replaced by | | | | | | transplant | | + +------+--------+ + + documented as of this encounter Visit Diagnoses + + | Diagnosis | + + | Essential hypertension, benign - Primary | + + | Hypothyroidism, unspecified type | + + | Kidney replaced by transplant | + + documented in this encounter"
--- OUTSIDE RECORDS SUMMARY | ~2019-10-28 | XMS | Encounter Summary ---
Demographics + + + | Address | [address] | | | [place] [address] | + + + | Home Phone | | + + + | Preferred Language | Unknown | + + + | Marital Status | | + + + | Scientologist Affiliation | 1013 | + + + | Race | Unknown | + + + | Ethnic Group | Unknown | + + + Author + + + | Author | [facility] | | | and [place] | + + + | Organization | [facility] | | | [...] [address] | | | | | [address] | | + + + + + | Ellen Rogers | ECON | [address] | | | | | [place] | | + + + + + | Gisell Rogers | ECON | Unknown | | + + + + + Care Team Providers + +------+ + | Care Leadlighter Name | Role | Phone | + +------+ + | Lizbet Sellers MD | PCP | | + +------+ + Encounter Details +--------+ + + + + | Date | Type | Department | Care Team | Description | +--------+ + + + + | 08/17/ | Orders Only | [facility] | Jaren Pelayo MD | | | 2014 | | NEPHROLOGY [place] | [address] [place] | | | | | [address] [place] | [address] [place], [place] | | | | | [address] [place], [place] | [id number] | | | | | [address] | | | | | | [phone] | | | +--------+ + + + [...] 2020 | Visit | | [address] [facility] | | | | | | [address] [place] | | | | | | [address] | | | | | | | | +--------+---------+ + + + documented as of this encounter Procedures + +--------+ + + + | Procedure Name | Priori | Date/Time | Associated Diagnosis | Comments | | | ty | | | | + +--------+ + + + | EXTERNAL LAB: | Routin | 08/17/2014 | | Results for this | | TACROLIMUS LEVEL, | e | 12:00 AM | | procedure are in the | | LC-MS/MS | | PDT | | results section. | + +--------+ + + + | EXTERNAL LAB: CBC | Routin | 08/17/2014 | | Results for this | | | e | 12:00 AM | | procedure are in the | | | | PDT | | results section. | + +--------+ + + + | URINALYSIS WITH | Routin | 08/17/2014 | | Results for this | | MICROSCOPIC WITH | e | 12:00 AM | | procedure are in the | | CULTURE IF INDICATED | | PDT | | results section. | + +--------+ + + + | LIPID PANEL | Routin | 08/17/2014 | | Results for this | | | e | 12:00 AM | | procedure are in the | | | | PDT | | results section. | + +--------+ + + + | PARATHYROID HORMONE, | Routin | 08/17/2014 | | Results for this | | INTACT AND CALCIUM | e | 12:00 AM | | procedure are in the | | | | PDT | | results section. | + +--------+ + + + | PROTEIN/CREATININE | Routin | 08/17/2014 | | Results for this | | RATIO, URINE | e | 12:00 AM | | procedure are in the | | | | PDT | | results section. | + +--------+ + + + | BK VIRUS, NAAT, | Routin | 08/17/2014 | | Results for this | | URINE, QUANT | e | 12:00 AM | | procedure are in the | | | | PDT | | results section. | + +--------+ + + + | PROTEIN, URINE, | Routin | 08/17/2014 | | Results for this | | RANDOM | e | 12:00 AM | | procedure are in the | | | | PDT | | results section. | + +--------+ + + + | CREATININE, URINE, | Routin | 08/17/2014 | | Results for this | | RANDOM | e | 12:00 AM | | procedure are in the | | | | PDT | | results section. | + +--------+ + + + | MAGNESIUM | Routin | 08/17/2014 | | Results for this | | | e | 12:00 AM | | procedure are in the | | | | PDT | | results section. | + +--------+ + + + | RENAL FUNCTION PANEL | Routin | 08/17/2014 | | Results for this | | | e | 12:00 AM | | procedure are in the | | | | PDT | | results section. | + +--------+ + + + documented in this encounter Results Urinalysis with Microscopic with Culture if Indicated (08/17/2014 12:00 AM PDT) + + + + + + | [...] + + + | Spec Grav, | 1.025 | 1.005 - 1.030 | EXTERNAL | [...] + + + + | Glucose, | 3+Comment: 300 | | EXTERNAL | | | Urine | | | LAB | | + + + + + + | WBC, UA | | | EXTERNAL | | | | | | LAB | | + + + + + + | RBC, UA | | | EXTERNAL | | | | | | LAB | | + + + + + + | Epithelial | | | EXTERNAL | | | Cells | | | LAB | | + + + + + + | Bacteria, | | | EXTERNAL | | | UA | | | LAB | | + + + + + + | HYALINE | | | EXTERNAL | | | CASTS UA | | | LAB | | + + + + + + + + | Specimen | + + | | + + + +---------+ + + | Performing | Address | City/State/Zipcode | Phone Number | | Organization | | | | + +---------+ + + | EXTERNAL LAB | | | | + +---------+ + + External Lab: Tacrolimus Level, LC-MS/MS (08/17/2014 12:00 AM PDT) + +-------+ + + + | Component | Value | Ref Range | Performed | Pathologist | | | | | At | Signature | + +-------+ + + + | Tacrolimus | 5.4 | | EXTERNAL | | | Level [...] + + Parathyroid Hormone, Intact and Calcium (08/17/2014 12:00 AM PDT) + + + + + + | Component | Value | Ref Range | Performed | Pathologist | | | | | At | Signature | + + + + + + | PTH Intact | 65.83 (A) | 15 - 65 | EXTERNAL | | | | | | LAB | | + + + + + + | Calcium | 9.2 | 8.4 - 10.2 | EXTERNAL | [...] + +---------+ + + Protein/Creatinine Ratio, Urine (08/17/2014 12:00 AM PDT) + +-------+ + + + | Component | Value | Ref Range | Performed | Pathologist | | | | | At | Signature | + +-------+ + + + | Protein/Cre | 60.2 | 0 - 150 | EXTERNAL | [...] + + BK Virus, NAAT, Urine, Quant (08/17/2014 12:00 AM PDT) + + | Specimen | + + | Urine specimen | | (specimen) | + + + + + | Impressions | Performed At | + + + | BK Quant copy/mL <390 BK Quant log <2.6 Not Detected | EXTERNAL LAB | + + + + +---------+ + + | Performing | Address | City/State/Zipcode | Phone Number | | Organization | | | | + +---------+ + + | EXTERNAL LAB | | | | + +---------+ + + Protein, Urine, Random (08/17/2014 12:00 AM PDT) + +-------+ + + + | Component | Value | Ref Range | Performed | Pathologist | | | | | At | Signature | + +-------+ + + + | Protein, | 10 | 0.0 - 50.0 | EXTERNAL | | | Urine | [...] | | | + +---------+ + + Creatinine, Urine, Random (08/17/2014 12:00 AM PDT) + +-------+ + + + | Component | Value | Ref Range | Performed | Pathologist | | | | | At | Signature | + +-------+ + + + | Creatinine, | 166 | | EXTERNAL | | | 24H Ur | | | LAB | | + [...] + +---------+ + + External Lab: CBC (08/17/2014 12:00 AM PDT) + + + + + + | Component | Value | Ref Range | Performed | Pathologist | | | | | At | Signature | + + + + + + | WBC | 7.6 | 4.5 - 11.0 10 | EXTERNAL | | | | | | LAB | | + + + + + + | Non- | 5.68 | 4.3 - 5.7 10 | EXTERNAL | | | Red Blood | | | LAB | | | Cells | | | | | | Counted | | | | | + + + + + + | Hemoglobin | 16.8 | 13.5 - 18.0 | EXTERNAL | | | | | g/dL | LAB | | + + + + + + | Hematocrit, | 52.8 (A) | 41 - 50 % | EXTERNAL | | | POC | | | LAB | | + + + + + + | MCV | 92.9 | 81 - 99 fL | EXTERNAL | | | | | | LAB | | + + + + + + | MCH | 30 | 27 - 33 pg | EXTERNAL | | | | | | LAB | | + + + + + + | MCHC | 32 | 30 - 36 g/dL | EXTERNAL | | | | | | LAB | | + + + + + + | Platelet | 383 | 140 - 440 K/ L | EXTERNAL | | | Count | | | LAB | | | Plasma | | | | | + + + + + + | RDW-CV | 13.9 | 10.5 - 15.0 % | EXTERNAL [...] + + + | % Segmented | 66.4 | 39 - 80 % | EXTERNAL | | | | | | LAB | | | Neutrophils | | | | | + + + + + + | % | 17.0 (A) | 24 - 44 % | EXTERNAL | | | Lymphocytes | | | LAB | | + + + + + + | % Monocytes | 12.3 (A) | 0 - 12 % | EXTERNAL | | | | | | LAB | | + + + + + + | % | 3.6 | 0 - 6 % | EXTERNAL | | | Eosinophils | | | LAB | | + + + + + + | % Basophils | 0.7 | 0 - 2 % | EXTERNAL [...] | | + +---------+ + + Magnesium (08/17/2014 12:00 AM PDT) + +---------+ + + + | Component | Value | Ref Range | Performed | Pathologist | | | | | At | Signature | + +---------+ + + + | Magnesium | 1.3 (A) | 1.7 - 2.5 mg/dL | [...] + +---------+ + + Renal Function Panel (08/17/2014 12:00 AM PDT) + +---------+ + + + | Component | Value | Ref Range | Performed | Pathologist | | | | | At | Signature | + +---------+ + + + | Glucose, | 133 (A) | 70 - 100 mg/dL | EXTERNAL | | | Fasting | | | LAB | | + +---------+ + + + | BUN | 21 | 6 - 23 mg/dL | EXTERNAL | | | | | | LAB | | + +---------+ + + + | Creatinine | 1.22 | 0.60 - 1.35 | EXTERNAL | | | | | mg/dL | LAB | | + +---------+ + + + | PHOSPHORUS | | mg/dL | EXTERNAL | | | | | | LAB | | + +---------+ + + + | Albumin | 4.1 | 3.5 - 5.0 | EXTERNAL | | | | | | LAB | | + +---------+ + + + | Na | 136 | 132 - 143 | EXTERNAL | | | | | mmol/L | LAB | | + +---------+ + + + | K | 4.6 | 3.6 - 5.1 | EXTERNAL | | | | | mmol/L | LAB | | + +---------+ + + + | Cl | 98 | 95 - 112 mmol/L | EXTERNAL | | | | | | LAB | | + +---------+ + + + | CO2 | 26 | 19 - 31 mmol/L | EXTERNAL | | | | | | LAB | | + +---------+ + + + | Anion Gap | 16.6 | 7 - 21 mmol/L | EXTERNAL | | | | | | LAB | | + +---------+ + + + | eGFR if not | | | EXTERNAL | | | | | | LAB | | | FINNISH | | | | | + +---------+ + + + | Phosphorus, | 4.1 | 2.5 - 5.0 | EXTERNAL | | | Inorganic | | | LAB | | + +---------+ + + + | BUN/Creatin | 17.2 | 6.0 - 28.6 | EXTERNAL | | | ine Ratio | | | LAB | | + +---------+ + + + | Calcium | 9.2 | 8.4 - 10.2 | EXTERNAL | | | | | mg/dL | LAB | | + +---------+ + + + | Estimated | 65 | mg/dL | EXTERNAL | | | GFR [...] | | | + +---------+ + + Lipid Panel (08/17/2014 12:00 AM PDT) + +-------+ + + + | Component | Value | Ref Range | Performed | Pathologist | | | | | At | Signature | + +-------+ + + + | Cholesterol | 157 | 200 mg/dL | EXTERNAL | | | | | | LAB | | + +-------+ + + + | Triglycerid | 119 | 30 - 150 mg/dL | EXTERNAL | | | es | | | LAB | | + +-------+ + + + | HDL | 47.1 | 40 mg/dl | EXTERNAL | | | | | | LAB | | + +-------+ + + + | LDL, | 86 | 100 mg/dL | EXTERNAL | | | Calculated | | | LAB | | + +-------+ + + + | LDl/HDL | | | EXTERNAL | | | Ratio | | | LAB | | + +-------+ + + + | Chol/HDL | 3.3 | 4.97 | EXTERNAL | | | Ratio | | | LAB | | + +-------+ + + + | VLDL | 24 | 4 - 40 mg/dL | EXTERNAL | | | | | | LAB | | + +-------+ + + + | Non HDL | 110 | 130 | EXTERNAL | | | Chol. | | | LAB | | | (LDL+VLDL) | | | | | + +-------+ + + + [...]
--- OUTSIDE RECORDS SUMMARY | ~2019-10-28 | XMS | Encounter Summary ---
Demographics + + + | Address | [address] | | | [place] [address] | + + + | Home Phone | | + + + | Preferred Language | Unknown | + + + | Marital Status | Single | + + + | Rastafari Affiliation | CHR | + + + | Race | White | + + + | Ethnic Group | Not or | + + + Author + + + | Author | [facility] | + + + | Organization | [facility] | + + + | Address | Unknown | + + + | Phone | Unavailable | + + + Support + + + + + | Name | Relationship | Address | Phone | + + + + + | Krissy Rogers | BRADEN | [place] [address] | | + + + + + | Bay Rogers | ECON | Unknown | | + + + + + Care Team Providers + +------+ + | Care Spring Intern Name | Role | Phone | + +------+ + | Jono Arambula | PCP | | + +------+ + Reason for Visit + + + | Reason | Comments | + + + | Post Op Eye Surgery, | | | One Day | | + + + Encounter Details +--------+---------+ + + + | Date | Type | Department | Care Team | Description | +--------+---------+ + + + | 10/22/ | Office | [facility] | Maria Elena Lieberman, | DM Eye Manif Type | | 2008 | Visit | [facility] | [address] | II, Uncontrolled | | | | [facility] [address] | [address] | ([facility]); Proliferative | | | | [address] | [place], [place] | Diabetic | | | | [facility] [place], [facility] | [address] | Retinopathy ([facility]) | | | | floor [place], [place] | [phone] | | | | | [address] | | | +--------+---------+ + + + [...] Progress Notes Maria Elena Lieberman MD - 10/22/2008 8:49 AM PDTFormatting of this note might be different f rom the original. Retina Division Progress Note: Post OP Note CC: Postop visit HPI: Wilson Rogers is a 38 y.o. male status post PPV/ROSO on 10/21/2008. The patient slept well ., There was no significant pain., Pain was relieved with prescribed pain medicines, The singh n level was 3 out of 10. C/o irritation more than pain OS. 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 Allergies: Penicillins and Lisinopril Meds: PF 4x, Ofloxacin 4x, Atropine 2x All gtts instilled by Ro Headley Cot Examination: 10/22/2008 Va sc Va cc PH IOP 9:09 AM Left Eye CF@1' NT ni 15 SLE OS Lids Appropriate edema Conjunctiva Well closed Cornea k abrasion inferonasally - largely healed AC Minimal cells Iris dilated Lens 1+ ns tr psc Ophthalmoscopy of the left eye disclosed retina that is flat all over. Areas of preretinal fibrosis and retinectomy OS. IMPRESSION: Post op status post PPV/ROSO OS on 10/21/2008 PLAN: Place bandage contact lens today and use maxitrol carlos qhs Ofloxacin OS qid Atropine 1% OS bid Prednisolone OS qid No lifting, bending or straining x 2 weeks. Shield at night time x 1 week. Pain medicines as needed. Relevant information regarding altitude, nitrous oxide as it relates to intraocular gas dis cussed. Call immediately for increased pain, decreased vision. 24 hour contact information given. Positioning: none Return to clinic in 1 week = cannot come back for 2-3 weeks here - will see if Dr. Oswald yuen an see him locally to remove CL and recheck IOP - f/u here 2-3 weeks Sami Celis MD, PhD, Vitreoretinal Fellow, [facility], 10/22/2008 Maria Elena Lieberman MD I am familiar with this patient's medical history and the current active problems as discus sed with Dr. Celis. We reviewed the assessment and plan and I agree with the plan as outlin ed. I have reviewed, entered my findings, and agree with the above documentation. Addendum: Phone call 10/29/08 from patient - Dr. Akers not available - he will see Dr. Fran harry to remove the CL. Maria Elena Lieberman MD Bulk System Operator [facility] [place]. documented in this encounter Plan of Treatment +--------+---------+ + + + | Date | Type | Specialty | Care Team | Description | +--------+---------+ + + + | 01/26/ | Office | Ophthalmology | Maria Elena Lieberman, | | | 2019 | Visit | | [address] | | | | | | [place], [place] | | | | | | [address] | | | | | | [phone] | | | | | | | | +--------+---------+ + + + documented as of this encounter Visit Diagnoses + + | Diagnosis | + + | Type II or unspecified type diabetes mellitus with ophthalmic manifestations, | | uncontrolled(250.52) ([facility]) Type II or unspecified type diabetes mellitus with | | ophthalmic manifestations, uncontrolled | + + | Proliferative diabetic retinopathy(362.02) Proliferative diabetic retinopathy | + + documented in this encounter"
--- OUTSIDE RECORDS SUMMARY | ~2019-10-28 | XMS | Encounter Summary ---
Demographics + + + | Address | [address] | | | [place] [address] | + + + | Home Phone | | + + + | Preferred Language | Unknown | + + + | Marital Status | | + + + | Evangelical Affiliation | 1013 | + + + | Race | Unknown | + + + | Ethnic Group | Unknown | + + + Author + + + | Author | [facility] | | | and [place] | + + + | Organization | [facility] | | | [...] [address] | | | | | [address] | | + + + + + | Ellen Rogers | ECON | [address] | | | | | [place] | | + + + + + | Gisell Rogers | ECON | Unknown | | + + + + + Care Team Providers + +------+ + | Care Aba Tutor Name | Role | Phone | + +------+ + | Lizbet Selelrs MD | PCP | | + +------+ + Encounter Details +--------+ + + + + | Date | Type | Department | Care Team | Description | +--------+ + + + + | 01/28/ | Orders Only | [facility] | Conversion | | | 2018 | | [facility] [place] | Transaction, | | | | | [address] | Provider Unknown | | | | | [address] [place], [place] | [phone] | | | | | [address] | | | | | | [phone] | | | +--------+ + + + [...] 2020 | Visit | | [address] [facility] | | | | | | [address] [place] | | | | | | [address] | | | | | | | | +--------+---------+ + + + documented as of this encounter Procedures + +--------+ + + + | Procedure Name | Priori | Date/Time | Associated Diagnosis | Comments | | | ty | | | | + +--------+ + + + | TSH WITH REFLEX | Routin | 01/28/2018 | | Results for this | | | e | 12:00 AM | | procedure are in the | | | | PDT | | results section. | + +--------+ + + + | LIPID PANEL | Routin | 01/28/2018 | | Results for this | | | e | 12:00 AM | | procedure are in the | | | | PDT | | results section. | + +--------+ + + + documented in this encounter Results TSH with Reflex (01/28/2018 12:00 AM PDT) + + + + + + | Component | Value | Ref Range | Performed | Pathologist | | | | | At | Signature | + + + + + + | TSH | 14.38 (A) | 0.270 - 4.20 | EXTERNAL | | | | | [...] | + +---------+ + + Lipid Panel (01/28/2018 12:00 AM PDT) + +-------+ + + + | Component | Value | Ref Range | Performed | Pathologist | | | | | At | Signature | + +-------+ + + + | Cholesterol | 149 | mg/dL | EXTERNAL | | | | | | LAB | | + +-------+ + + + | Triglycerid | 114 | 30 - 150 mg/dL | EXTERNAL | | | es | | | LAB | | + +-------+ + + + | HDL | 42.5 | mg/dl | EXTERNAL | | | | | | LAB | | + +-------+ + + + | LDL, | 84 | mg/dL | EXTERNAL | | | Calculated | | | LAB | | + +-------+ + + + | LDl/HDL | | | EXTERNAL | | | Ratio | | | LAB | | + +-------+ + + + | Chol/HDL | 3.5 | | EXTERNAL | | | Ratio | | | LAB | | + +-------+ + + + | VLDL | 23 | 4 - 40 mg/dL | EXTERNAL | | | | | | LAB | | + +-------+ + + + | Non HDL | 107 | | EXTERNAL | | | Chol. | [...]
--- OUTSIDE RECORDS SUMMARY | ~2019-10-28 | XMS | Encounter Summary ---
Demographics + + + | Address | [address] | | | [place] [address] | + + + | Home Phone | | + + + | Preferred Language | Unknown | + + + | Marital Status | Single | + + + | Advent Affiliation | CHR | + + + [...] Krissy Rogers | BRADEN | [place] [address] | | + + + + + | Bay Rogers | ECON | Unknown | | + + + + + Care Team Providers + +------+ + | Care Respite Care Provider Name | Role | Phone | + +------+ + | Jono Arambula | PCP | | + +------+ + Encounter Details +--------+ + + + + | Date | Type | Department | Care Team | Description | +--------+ + + + + | 04/08/ | Hospital | LAB SURGICAL | | | | 2012 | Encounter | PATHOLOGY [address] | | | | | | [address] | | | | | | [place], [place] | | | | | | [address] | | | +--------+ + + + [...] + + +---------+ + + | aspirin EC 81 mg | Take by mouth. Take | | 0 | | | | Oral tablet,delayed | 81 mg by mouth | | | | | | release (DR/EC) | Daily. | | | | | + + + +---------+ + + | Cholecalciferol, | Take 5,000 Units by | | 0 | | | | Vitamin D3, 3,000 | mouth. Take 1 | | | | | | unit Oral tablet | capsule by mouth | | | | | | | Daily. | | | | | + + + +---------+ + + | cinacalcet 30 mg | Take by mouth. Take | | 0 | 11/02/19 | | | Oral tablet | 60 mg by mouth | | | 13 | | | | Daily 1800. | | | | | + + + +---------+ + + | clopidogrel 75 mg | Take by mouth. Take | | 0 | 12/05/19 | | | Oral tablet | 1 tablet by mouth | | | 13 | | | | Daily. | | | | | [...] + + + +---------+ + + | losartan 50 mg | Take 25 mg by mouth. | | 0 | 01/07/20 | | | Oral tablet | Take 1 tablet by | | | 13 | | | | mouth 3 Times Daily. | | | | | + + + +---------+ + + | metoprolol | Take by mouth. Take | | 0 | 01/07/20 | | | tartrate 50 mg Oral | 2 tablets by mouth | | | 13 | | | tablet | 2 Times Daily. | | | | | | | Indications: take | | | | | | | 50mg in morning and | | | | | | | 100mg at night | | | | | + + + +---------+ + + | mycophenolate 250 | Take by mouth. Take | | 0 | 10/15/19 | | | mg Oral capsule | 3 capsules by mouth | | | 13 | | | | 2 Times Daily. | | | | | + + + +---------+ + + | NOVOLOG SUBQ | Inject under the | | 0 | | | | | skin (SUBC). | | | | | | | Sliding scale with | | | | | | | dinner | | | | | + + + +---------+ + + | omeprazole 20 mg | Take by mouth. Take | | 0 | 12/20/19 | | | Oral capsule,delayed | 1 capsule by mouth | | | 13 | | | release(DR/EC) | Daily. | | | | | + + + +---------+ + + | tacrolimus 1 mg | Take by mouth. Take | | 0 | 10/17/19 | | | Oral capsule | 1-2 capsules by | | | 13 | | | | mouth 2 Times Daily. | | | | | | | Take 1mg in the | | | | | | | morning and 2mg in | | | | | | | the evening. | | | | | + + + +---------+ + + documented as of this encounter Plan of Treatment +--------+---------+ + + + | Date | Type | Specialty | Care Team | Description | +--------+---------+ + + + | 01/26/ | Office | Ophthalmology | Maria Elena Lieberman, | | | 2019 | Visit | | [address] | | | | | | [address] | | | | | | [place], [place] | | | | | | [address] | | | | | | [phone] | | | | | | | | +--------+---------+ + + + documented as of this encounter Procedures + +--------+ + + + | Procedure Name | Priori | Date/Time | Associated Diagnosis | Comments | | | ty | | | | + +--------+ + + + | SURGICAL PATHOLOGY | Routin | 04/08/2013 | | Results for this | | | e | | | procedure are in the | | | | | | results section. | + +--------+ + + + documented in this encounter Results SURGICAL PATHOLOGY (04/08/2013) + + + + + + | Component | Value | Ref Range | Performed | Pathologist | | | | | At | Signature | + + + + + + | SURGICAL | SOURCE OF SPECIMEN:A | | [facility] | | | PATHOLOGY | Allograft Kidney Biopsy | | DEPARTMENT | | | | Final Pathologic | | OF | | | | Diagnosis:Allograft | | PATHOLOGY | | | | kidney biopsy | | | | | | (immunofluorescence | | | | | | microscopy only; | | | | | | [id number]):- Negative | | | | | | for peritubular | | | | | | capillary C4d deposits | | | | | | Case reviewed | | | | | | by:Manuel Payne, | | | | | | M.D. | | | | | | /PathologistT:04/09/13:d | | | | | | ch Indirect | | | | | | Immunofluorescence | | | | | | Microscopy: Frozen | | | | | | sections, | | | | | | includingpositive | | | | | | controls, are stained by | | | | | | indirect | | | | | | immunofluorescent | | | | | | technique forC4d, graded | | | | | | on a scale of 0 to 4+. | | | | | | Each level contains | | | | | | three glomeruli. | | | | | | RESULTS: C4d: | | | | | | Negative for | | | | | | peritubular capillary | | | | | | staining (Analyte | | | | | | specific reagents are | | | | | | used in many laboratory | | | | | | tests necessary | | | | | | [facility] | | | | | | and generally do not | | | | | | require FDA approval. | | | | | | This testwas developed | | | | | | and its performance | | | | | | characteristics | | | | | | determined by | | | | | | [facility]. It has | | | | | | not been cleared or | | | | | | approved by the [place]. | | | | | | Food and | | | | | | DrugAdministration.) | | | | | | Gross Description:The | | | | | | specimen is received | | | | | | labeled with the patient | | | | | | name (initials WC) | | | | | | andoutside accession | | | | | | number [id number]. | | | | | | Received in [facility] | | | | | | transport mediumis one | | | | | | needle core segment of | | | | | | tissue that measures 1.4 | | | | | | cm in length x 0.1cm in | | | | | | uniform diameter. It | | | | | | is submitted for | | | | | | immunofluorescence | | | | | | microscopy(KB).T: | | | | | | 3/sg My electronic | | | | | | signature indicates | | | | | | that I have personally | | | | | | reviewed alldiagnostic | | | | | | slides, the gross and/or | | | | | | microscopic portion of | | | | | | thisreport and | | | | | | formulated the final | | | | | | diagnosis. | | | | | | Rendering Diagnostician: | | | | | | Manuel Payne | | | | | | GriceldaPathologistElectroni | | | | | | ashu Signed 04/09/2013 | | | | | | 3:59PM | | | | + + + + + + + + | Specimen | + + | | + + + + + + + | Performing | Address | City/State/Zipcode | Phone Number | | Organization | | | | + + + + + | [facility] | [address] | [place] [address] | | | PATHOLOGY | [address] | | | + + + + + documented in this encounter Visit Diagnoses Not on filedocumented in this encounter"
--- OUTSIDE RECORDS SUMMARY | ~2019-10-28 | XMS | Encounter Summary ---
Demographics + + + | Address | [address] | | | [place] [address] | + + + | Home Phone | | + + + | Preferred Language | Unknown | + + + | Marital Status | | + + + | Yazdanism Affiliation | 1013 | + + + | Race | Unknown | + + + | Ethnic Group | Unknown | + + + Author + + + | Author | [facility] | | | and [place] | + + + | Organization | [facility] | | [...] [place] | | | | | [address] | | + + + + + | Ellen Rogers | ECON | [address] | | | | | [place] | | + + + + + | Gisell Rogers | ECON | Unknown | | + + + + + Care Team Providers + +------+ + | Care Steamer Gum Candy Name | Role | Phone | + +------+ + PCP | Unavailable | + +------+ + Encounter Details +--------+ + + + + | Date | Type | Department | Care Team | Description | +--------+ + + + + | 02/24/ | Hospital | [facility] | Jaren Pelayo MD | Other Complications | | 2008 | Encounter | [facility] | [address] [place] | due to Renal | | | | CLINICAL DECISION | [address] [place], [place] | Dialysis Device, | | | | [address] | [id number] | Implant, and Graft | | | | [place], [place] | | (FORMERLY [facility]) | | | | [address] | | | | | | [phone] | | | +--------+ + + + [...] 2020 | Visit | | [address] [facility] | | | | | | [address] [place] | | | | | | [address] | | | | | | | | +--------+---------+ + + + documented as of this encounter Visit Diagnoses + + | Diagnosis | + + | Other complications due to renal dialysis device, implant, and graft | + + documented in this encounter"
--- OUTSIDE RECORDS SUMMARY | ~2019-10-28 | XMS | Encounter Summary ---
Demographics + + + | Address | [address] | | | [place] [address] | + + + | Home Phone | | + + + | Preferred Language | Unknown | + + + | Marital Status | Single | + + + | Orthodox Affiliation | CHR | + + + | Race | White | + + + | Ethnic Group | Not or | + + + Author + + + | Author | [facility] | + + + | Organization | [facility] | + + + | Address | Unknown | + + + | Phone | Unavailable | + + + Support + + + + + | Name | Relationship | Address | Phone | + + + + + | Krissy Rogers | BRADEN | [place] [address] | | + + + + + | Bay Rogers | ECON | Unknown | | + + + + + Care Team Providers + +------+ + | Care Qa Automation Architect Name | Role | Phone | + +------+ + | Jono Arambula | PCP | | + +------+ + Reason for Visit + + + | Reason | Comments | + + + | Referral To | | | Ophthalmology | | + + + Encounter Details +--------+ + + + + | Date | Type | Department | Care Team | Description | +--------+ + + + + | 12/14/ | Documentati | [facility] | Mark Alberto, | Referral To | | 2016 | on | [facility] | [address] | Ophthalmology | | | | ogy at [facility] [address] | [place], [place] | | | | | [address] Mailcode: | [address] | | | | | [facility] | [phone] | | | | | [facility], | | | | | | | | | | | | Floor [place], [place] | | | | | | [address] | | | | | | [phone] | | | +--------+ + + + [...] [address] | | | | | | [place], [place] | | | | | | [address] | | | | | | [phone] | | | | | | | | +--------+---------+ + + + documented as of this encounter Visit Diagnoses Not on filedocumented in this encounter"
--- OUTSIDE RECORDS SUMMARY | ~2019-10-28 | XMS | Encounter Summary ---
Demographics + + + | Address | [address] | | | [place] [address] | + + + | Home Phone | | + + + | Preferred Language | Unknown | + + + | Marital Status | Single | + + + | Church Affiliation | CHR | + + + [...] Krissy Rogers | BRADEN | [place] [address] | | + + + + + | Bay Rogers | ECON | Unknown | | + + + + + Care Team Providers + +------+ + | Care Form Drafter Name | Role | Phone | + +------+ + | Berna Keyes MD | PCP | | + +------+ + Reason for Visit + + + | Reason | Comments | + + + | New patient | decreased vision | | consultation | | + + + Office Visit - E/M Services (Routine) +--------+--------+ + + + + | Status | Reason | Specialty | Diagnoses / | Referred By | Referred To | | | | | Procedures | Contact | Contact | +--------+--------+ + + + + | Closed | | Ophthalmology | | Flaxel, | Flaxel, | | | | | | Maria Elena, | MD Maria Elena | | | | | | [address] | | | | [address] | | | | | | [address] | [address] | | | | | | [place], [place] | [place], [place] | | | | | | [address] | [address] | | | | | | Phone: | Phone: | | | | | | [phone] | [phone] | | | | | | Fax: | Fax: | | | | | | [phone] | [phone] | +--------+--------+ + + + + Encounter Details +--------+---------+ + + + | Date | Type | Department | Care Team | Description | +--------+---------+ + + + | 09/15/ | Office | [facility] | Maria Elena Lieberman, | Proliferative | | 2008 | Visit | [facility] at | [address] | Diabetic Retinopathy | | | | [facility] [address] | ([facility]) (Primary Dx); | | | | [address] | [place], [place] | Vision, Loss, | | | | [facility] | [address] | Sudden; DM Eye Manif | | | | floor [place], [place] | [phone] | Type II, | | | | [address] | | Uncontrolled ([facility]); | | | | | | Unspecified Retinal | | | | | | Detachment | +--------+---------+ + + + Social History [...] Progress Notes Maria Elena Lieberman MD - 09/15/2008 2:13 PM PDTFormatting of this note might be different f rom the original. Retina Division Progress Note: CC: New referral for evaluation of Decreased vision OD HPI: Wilson Rogers is a 38 y.o. male diabetic with a history of Bilateral RD's s/p repair OD who complains of decreased vision in the right eye for the past 7 days. Pt. States he woke up last Sunday and vision was foggy. Vision kept getting darker and darker. He went to see Dr. Akers and was referred here for further evaluation. Pt. States he had a CAT scan that came back normal. Pt. Does have a history of laser treatment for the diabetes in the right eye. Pt. States his blood sugars aren't under tight control at the moment due to recent ki dney dialysis, but previously sugers were under control. Pt. Has had poor vision in the lef t eye due to a RD that was never repaired. Past Medical History Diagnosis Date Unspecified Retinal Detachment Unspecified Essential Hypertension Nephritis DM w/o Complication Type I Pain: No pain (0 of 0-10) SH: Tobacco: Active use 1/4 PPD, Does not drive, denies alcohol FH: No known family history of AMD, cataract, glaucoma, retinal detachment or blindness fr om unknown causes ROS: A review of constitutional, ophthalmic, otolaryngologic, integumentary, cardiovascular , respiratory, gastrointestinal, genitourinary, neurologic, musculoskeletal, and psychiatric systems were negative except as noted above or in the new patient questionaire. Referring Umu carlos: Dr. Alfonso Akers Primary Care Provider: Berna Keyes MD POH: Diabetic retinopathy RD OU, s/p repair OD Allergies Allergen Reactions Penicillins Rash Lisinopril Cough Current outpatient prescriptions Medication Sig BISOPROLOL FUMARATE ORAL Take by mouth. Insulin Glargine (LANTUS SOLOSTAR) 300 unit/3 mL Subcutaneous Insulin Pen Inject under the skin (SUBC) once daily at bedtime. LEVOTHYROXINE ORAL Take by mouth. NEPHRO-ALINA ORAL Take by mouth. NORVASC OR Take by mouth. NOVOLOG SUBQ Inject under the skin (SUBC). REGLAN ORAL Take by mouth. SIMVASTATIN ORAL Take by mouth. Examination: 09/15/2008 [facility] sc [facility] PH IOP 2:01 PM Right Eye HM / / 12 Left Eye HM / / 10 Pupils were equally reactive OS, unreactive OD EOMS full Unable to do CVF OU Alert and oriented times 4. Both eyes dilated with Mydriacyl and Neosynephrine OU @ 2:01 PM Lizbeth Darden SLE OD OS Lids Unremarkable Unremarkable Conjunctiva White and quiet White and quiet Cornea Clear Clear AC Deep and quiet Deep and quiet Iris Normal Normal Lens 1+ NSC, 1+ PSC 1+ NSC Ant Vit Clear Clear DFE: Ophthalmoscopy of the right eye disclosed retina that is flat all over. The vessels are se verely attenuated. There are multiple CWS. Minimal edema. There are PRP scars as well as a treated hole in the temopral macula. No active NV or traction. Ophthalmoscopy of the left eye a total combined TRD/RRD. The optic nerve is barely visible . There is dense anterior fibrosis. The cup-to-disc ratio was 0.5 in the right eye. The nerve is pale. The CDR OS cannot be e valuated. Color Photographs 09/15/2008 Stereo color photographs were obtained for disease documentation and for future comparison. OCT 09/15/2008 Line scans and fast macular maps were obtained. Central macular thickness were 218 microns in the right eye. There is mild retinal atrophy and no IRF. Both OCT and color fundus photographs were required for this patient at this visit. Color photographs were obtained to document the localization of the lesion. OCT was obtained to d ocument the cross sectional characteristic of the lesion and the quantitative retinal thickn ess. Fluorescein Angiography 09/15/2008 Fluorescein angiography was obtained to evaluate retinal vascular pathology. Redfree photog raphs disclosed significant media opacities in the right eye. Transit was obtained in the ri ght eye. Ahi-xw-tgqngj time was within normal limits. The early views of the right eye discl osed an enlarged MAURICE and patchy choroidal filling. Later views reveal capillary nonperfusio n, particularly in the superonasal macula. No leakage. IMPRESSION: 1. PDR with combined TRD/RRD OS. Advanced disease with poor visual prognosis. Discussed o ptions including observation and PPV/MP/possible PPL/oil. Plan surgery tomorrow 2. Vision loss OD. There is diffuse nonperfusion, but no clear etiology for sudden visual decline based on clinical or FA findings. Discussed with Dr. Roman - suggest MRI brain and orbits with and without contrast - deirdre medina of dialysis will need to arrange in [place] so he can have dialysis within 24 hours - t hen will ask Dr. Roman to review and consider neuro-ophthalmology referral based on MRI find ings Letter done to Dr. Akers and PCP PLAN: PARQ PPV/possible PPL/MP/EL/oil OS tomorrow MRI later this week Myron Meehan M.D. Vitreoretinal fellow 09/15/2008 Maria Elena Lieberman MD I am familiar with this patient's medical history and the current active problems as discus sed with Dr. Meehan. We reviewed the assessment and plan and I agree with the plan as out lined. I have reviewed, entered my findings, and agree with the above documentation. documented in this encounter Plan of Treatment +--------+---------+ + + + | Date | Type | Specialty | Care Team | Description | +--------+---------+ + + + | 01/26/ | Office | Ophthalmology | Maria Elena Lieberman, | | | 2019 | Visit | | [address] | | | | | | [address] | | | | | | [place], [place] | | | | | | [address] | | | | | | [phone] | | | | | | | | +--------+---------+ + + + + + +--------+ + + | Name | Type | Priori | Associated Diagnoses | Order Schedule | | | | ty | | | + + +--------+ + + | CA FLUORESCEIN | Procedures | Routin | Proliferative | Ordered: 09/15/2008 | | ANGIOGRAPHY | | e | Diabetic Retinopathy | | | | | | (HCC) | | + + +--------+ + + | FLUORESCEIN | Procedures | Routin | Proliferative | Expected: | | ANGIOGRAM | | e | Diabetic Retinopathy | 09/15/2008, Expires: | | | | | (HCC) | 11/14/2008 | + + +--------+ + + | CA OPTHALMIC DX | Procedures | Routin | Proliferative | Ordered: 09/15/2008 | | IMAGING | | e | Diabetic Retinopathy | | | | | | (HCC) | | + + +--------+ + + | OPTICAL COHERENCE | Procedures | Routin | Proliferative | Expected: | | TOMOGRAPHY | | e | Diabetic Retinopathy | 09/15/2008, Expires: | | | | | (HCC) | 11/14/2008 | + + +--------+ + + | COLOR PHOTOGRAPHY | Procedures | Routin | Proliferative | Expected: | | | | e | Diabetic Retinopathy | 09/15/2008, Expires: | | | | | (HCC) | 11/14/2008 | + + +--------+ + + | CA FUNDAL | Procedures | Routin | Proliferative | Ordered: 09/18/2008 | | PHOTOGRAPHY | | e | Diabetic Retinopathy | | | | | | ([facility]) Vision, | | | | | | Loss, Sudden DM Eye | | | | | | Manif Type II, | | | | | | Uncontrolled ([facility]) | | | | | | Unspecified Retinal | | | | | | Detachment | | + + +--------+ + + documented as of this encounter Visit Diagnoses + + | Diagnosis | + + | Proliferative diabetic retinopathy(362.02) - Primary Proliferative diabetic | | retinopathy | + + | Vision, loss, sudden Sudden visual loss | + + | Type II or unspecified type diabetes mellitus with ophthalmic manifestations, | | uncontrolled(250.52) ([facility]) Type II or unspecified type diabetes mellitus with | | ophthalmic manifestations, uncontrolled | + + | Unspecified retinal detachment | + + documented in this encounter"
--- OUTSIDE RECORDS SUMMARY | ~2019-10-28 | XMS | Encounter Summary ---
Demographics + + + | Address | [address] | | | [place] [address] | + + + | Home Phone | | + + + | Preferred Language | Unknown | + + + | Marital Status | | + + + | Worship Affiliation | 1013 | + + + | Race | Unknown | + + + | Ethnic Group | Unknown | + + + Author + + + | Author | [facility] | | | and [place] | + + + | Organization | [facility] | | | and [...] [place] | | | | | [address] | | + + + + + | Ellen Greer | ECON | [address] | | | | | [place] | | + + + + + | Gisell Greer | ECON | Unknown | | + + + + + Care Team Providers + +------+ + | Care Production Control Specialist Name | Role | Phone | + +------+ + | David Estrada MD | PCP | Unavailable | + +------+ + Reason for Referral Diagnostic/Screening (Routine) +--------+--------+ + + + + [...] | | vomiting | Julisa, | [address] | | | | | Abdominal | [employer] [address] [place] | | | | | bloating | [address] | [place], [place] | | | | | Diabetes | [address] | [address] | | | | | mellitus | HEMET, | Phone: | | | | | type 1 (HCC) | [place] [address] | [phone] | | | | | Procedures | Phone: | Fax: | | | | | NM Gastric | [phone] | [phone] | | | | | Emptying | Fax: | | | | | | | [phone] | | +--------+--------+ + + + + Encounter Details +--------+ + + + + | Date | Type | Department | Care Team | Description | +--------+ + + + + | 04/25/ | Hospital | [facility] | [facility], | Nausea and vomiting; | | 2012 - | Encounter | MED CTR XRAY [address] | [place], [employer] [address] | Abdominal bloating; | | | | [place] | [address] | Diabetes mellitus | | 04/27/ | | [place] [address] | [place] | type 1 (HCC) | | 2012 | | [phone] | [address] | | | | | | | [...] documented as of this encounter Progress Notes Julisa Howard ARNP - 04/29/2012 8:10 AM PST Quick Note: Will follow up after procedure. Please check to see if patient has follow up appt. Milagros lentz chata documented in this encounter Plan of Treatment +--------+---------+ + + + | Date | Type | Specialty | Care Team | Description | +--------+---------+ + + + | 01/04/ | Office | Nephrology | Jaren Pelayo MD | | | 2020 | Visit | | [address] [facility] | | | | | | [address] [place], [place] | | | | | | [address] | | | | | | | | +--------+---------+ + + + documented as of this encounter Procedures + +--------+ + + + | Procedure Name | Priori | Date/Time | Associated Diagnosis | Comments | | | ty | | | | + +--------+ + + + | NM GASTRIC EMPTYING | Routin | 04/25/2012 | Nausea and | Results for this | | | e | 10:52 AM | vomiting Abdominal | procedure are in the | | | | PST | bloating Diabetes | results section. | | | | | mellitus type 1 | | | | | | (HCC) | | + +--------+ + + + documented in this encounter Results NM Gastric Emptying (04/25/2012 10:52 AM PST) + + | Specimen | + + | | + + + + + | Narrative | Performed At | + + + | [facility] | [place] | | Department [address] | [facility] | | [ rep ct [address]] [ rep ct [facility] | | st zip] Signed | - IMAGING | | | | | Patient Name: WILSON GREER Physician: | | | BRID.01 : 1970 Age: 41 Sex: M Unit #: [id number] | | | Exam Date: 04/25/12 Location: [facility] | | | Report #: [id number] Page: | | | %(RAD)RES..mtdd.print.filter("pg") of %(RAD) | | | RES..mtdd.print.filter("tpg") | | | | | | Accession Number: [id number] | | | NUCLEAR GASTRIC EMPTYING STUDY, [...] Transcribed | | | Date/Time: 04/25/2012 11:12 [employer] Applications Analyst: | | | <<Signature on File>> | | | Arya Crowe MD04/25/129 <Electronically signed by Arya Crowe MD> | | | Arya Crowe MD 04/25/12 1052 [employer] Applications Analyst: | | | nothingGrinder Dyhhkrgbsyyef26/03/13 1112 [address], | | | [place] | | + + + + + + + + | Performing | Address | City/State/Zipcode | Phone Number | | Organization | | | | + + + + + | [facility] [address] | [address] | [place] | [phone] | | [facility] | | [address] | | | - IMAGING | | | | + + + + + documented in this encounter Visit Diagnoses + + | Diagnosis | + + | Nausea and vomiting Nausea with vomiting | + + | Abdominal bloating Flatulence, eructation, and gas pain | + + | Diabetes mellitus type 1 (HCC) Type I (juvenile type) diabetes mellitus without | | mention of complication, not stated as uncontrolled | + + documented in this encounter
--- OUTSIDE RECORDS SUMMARY | ~2019-10-28 | XMS | Encounter Summary ---
Demographics + + + | Address | [address] | | | [place] [address] | + + + | Home Phone | | + + + | Preferred Language | Unknown | + + + | Marital Status | Single | + + + | Zoroastrian Affiliation | CHR | + + + [...] Krissy Rogers | BRADEN | [place] [address] | | + + + + + | Bay Rogers | ECON | Unknown | | + + + + + Care Team Providers + +------+ + | Care Senior Communications Specialist Name | Role | Phone | + +------+ + | Jono Arambula | PCP | | + +------+ + Reason for Visit + + + | Reason | Comments | + + + | Other | Low Vision Medical History Questionnaire | + + + | Other | Outside Records | + + + | Referral | [facility] | + + + Encounter Details +--------+ + + + + | Date | Type | Department | Care Team | Description | +--------+ + + + + | 10/14/ | Documentati | [facility] | Lizett Mcadams, OD | Other (Low Vision | | 2009 | on | [place] [facility] | [address] | Medical History | | | | [address] | [address]vd [place], [place] | Questionnaire ); | | | | Mailcode: [facility] | [address] | Other (Outside | | | | [place] for [facility] | | Records ); Referral | | | | and Healing, | | ([facility] | | | | | | for the [facility]) | | | | Floor [place], [place] | | | | | | [address] | | | | | | [phone] | | | +--------+ + + + [...] | | 2019 | Visit | | [address] | | | | | | [address] | | | | | | [place], [place] | | | | | | [address] | | | | | | [phone] | | | | | | | | +--------+---------+ + + + documented as of this encounter Visit Diagnoses Not on filedocumented in this encounter"
--- OUTSIDE RECORDS SUMMARY | ~2019-10-28 | XMS | Encounter Summary ---
Demographics + + + | Address | [address] | | | [place] [address] | + + + | Home Phone | | + + + | Preferred Language | Unknown | + + + | Marital Status | | + + + | Buddhism Affiliation | 1013 | + + + | Race | Unknown | + + + | Ethnic Group | Unknown | + + + Author + + + | Author | [facility] | | | and [place] | + + + | Organization | [facility] | | [...] [address] | | | | | [address] | | + + + + + | Ellen Rogers | ECON | [address] | | | | | [place] | | + + + + + | Gisell Rogers | ECON | Unknown | | + + + + + Care Team Providers + +------+ + | Care Team Leader Name | Role | Phone | + +------+ + | Lizbet Sellers MD | PCP | | + +------+ + Encounter Details +--------+ + + + + | Date | Type | Department | Care Team | Description | +--------+ + + + + | 07/24/ | Orders Only | [facility] | Jaren Pelayo MD | | | 2013 | | [facility] | [address] [facility] | | | | | CARE [address] | [address] [place], [place] | | | | | [place], [place] | [address] | | | | | [address] | | | | | | [phone] | | | +--------+ + + + [...] 2020 | Visit | | [address] [facility] | | | | | | [address] [place] | | | | | | [address] | | | | | | | | +--------+---------+ + + + documented as of this encounter Procedures + +--------+ + + + | Procedure Name | Priori | Date/Time | Associated Diagnosis | Comments | | | ty | | | | + +--------+ + + + | LIPID PANEL | Routin | 08/26/2013 | | Results for this | | | e | 12:00 AM | | procedure are in the | | | | PDT | | results section. | + +--------+ + + + | EXTERNAL LAB: | Routin | 07/24/2013 | | Results for this | | TACROLIMUS LEVEL, | e | 12:00 AM | | procedure are in the | | LC-MS/MS | | PDT | | results section. | + +--------+ + + + | EXTERNAL LAB: CBC | Routin | 07/24/2013 | | Results for this | | | e | 12:00 AM | | procedure are in the | | | | PDT | | results section. | + +--------+ + + + | URINALYSIS WITH | Routin | 07/24/2013 | | Results for this | | MICROSCOPIC WITH | e | 12:00 AM | | procedure are in the | | CULTURE IF INDICATED | | PDT | | results section. | + +--------+ + + + | LIPID PANEL | Routin | 07/24/2013 | | Results for this | | | e | 12:00 AM | | procedure are in the | | | | PDT | | results section. | + +--------+ + + + | VITAMIN D, | Routin | 07/24/2013 | | Results for this | | DEFICIENCY SCREEN | e | 12:00 AM | | procedure are in the | | (25-HYDROXY) | | PDT | | results section. | + +--------+ + + + | PROTEIN/CREATININE | Routin | 07/24/2013 | | Results for this | | RATIO, URINE | e | 12:00 AM | | procedure are in the | | | | PDT | | results section. | + +--------+ + + + | PROTEIN, URINE, | Routin | 07/24/2013 | | Results for this | | RANDOM | e | 12:00 AM | | procedure are in the | | | | PDT | | results section. | + +--------+ + + + | CREATININE, URINE, | Routin | 07/24/2013 | | Results for this | | RANDOM | e | 12:00 AM | | procedure are in the | | | | PDT | | results section. | + +--------+ + + + | MAGNESIUM | Routin | 07/24/2013 | | Results for this | | | e | 12:00 AM | | procedure are in the | | | | PDT | | results section. | + +--------+ + + + | RENAL FUNCTION PANEL | Routin | 07/24/2013 | | Results for this | | | e | 12:00 AM | | procedure are in the | | | | PDT | | results section. | + +--------+ + + + | EXTERNAL LAB: | Routin | 05/23/2013 | | Results for this | | TACROLIMUS LEVEL, | e | 12:00 AM | | procedure are in the | | LC-MS/MS | | PST | | results section. | + +--------+ + + + | EXTERNAL LAB: CBC | Routin | 05/23/2013 | | Results for this | | | e | 12:00 AM | | procedure are in the | | | | PST | | results section. | + +--------+ + + + | URINALYSIS WITH | Routin | 05/23/2013 | | Results for this | | MICROSCOPIC WITH | e | 12:00 AM | | procedure are in the | | CULTURE IF INDICATED | | PST | | results section. | + +--------+ + + + | ALT | Routin | 05/23/2013 | | Results for this | | | e | 12:00 AM | | procedure are in the | | | | PST | | results section. | + +--------+ + + + | PARATHYROID HORMONE, | Routin | 05/23/2013 | | Results for this | | INTACT AND CALCIUM | e | 12:00 AM | | procedure are in the | | | | PST | | results section. | + +--------+ + + + | PROTEIN/CREATININE | Routin | 05/23/2013 | | Results for this | | RATIO, URINE | e | 12:00 AM | | procedure are in the | | | | PST | | results section. | + +--------+ + + + | PROTEIN, URINE, | Routin | 05/23/2013 | | Results for this | | RANDOM | e | 12:00 AM | | procedure are in the | | | | PST | | results section. | + +--------+ + + + | CREATININE, URINE, | Routin | 05/23/2013 | | Results for this | | RANDOM | e | 12:00 AM | | procedure are in the | | | | PST | | results section. | + +--------+ + + + | URIC ACID | Routin | 05/23/2013 | | Results for this | | | e | 12:00 AM | | procedure are in the | | | | PST | | results section. | + +--------+ + + + | AST | Routin | 05/23/2013 | | Results for this | | | e | 12:00 AM | | procedure are in the | | | | PST | | results section. | + +--------+ + + + | MAGNESIUM | Routin | 05/23/2013 | | Results for this | | | e | 12:00 AM | | procedure are in the | | | | PST | | results section. | + +--------+ + + + | CK TOTAL | Routin | 05/23/2013 | | Results for this | | | e | 12:00 AM | | procedure are in the | | | | PST | | results section. | + +--------+ + + + | RENAL FUNCTION PANEL | Routin | 05/23/2013 | | Results for this | | | e | 12:00 AM | | procedure are in the | | | | PST | | results section. | + +--------+ + + + documented in this encounter Results Lipid Panel (08/26/2013 12:00 AM PDT) + +-------+ + + + | Component | Value | Ref Range | Performed | Pathologist | | | | | At | Signature | + +-------+ + + + | Cholesterol | 163 | mg/dL | EXTERNAL | | | | | | LAB | | + +-------+ + + + | Triglycerid | 126 | mg/dL | EXTERNAL | | | es | | | LAB | | + +-------+ + + + | HDL | 45.6 | mg/dl | EXTERNAL | | | | | | LAB | | + +-------+ + + + | LDL, | 92 | mg/dL | EXTERNAL | | | Calculated | | | LAB | | + +-------+ + + + | LDl/HDL | | | EXTERNAL | | | Ratio | | | LAB | | + +-------+ + + + | Chol/HDL | 3.6 | | EXTERNAL | | | Ratio | | | LAB | | + +-------+ + + + | VLDL | 25 | mg/dL | EXTERNAL | | | | | | LAB | | + +-------+ + + + | Non HDL | 117 | | EXTERNAL | | | Chol. [...] + +---------+ + + Urinalysis with Microscopic with Culture if Indicated (07/24/2013 12:00 AM PDT) + + + + + + | Component | Value | Ref Range | Performed | Pathologist | | | | | At | Signature | + + + + + + | Color | [place] | | EXTERNAL | | | | | | LAB | | + + + + + + | Clarity, | Clear | | EXTERNAL | | | Urine | | | LAB | | + + + + + + | Spec Grav, | 1.023 | | EXTERNAL | | | Fluid | [...] + | pH, Urine | 5 | | EXTERNAL | | | | [...] + + + + | Glucose, | 1+Comment: 100 | | EXTERNAL | | | Urine [...] + + External Lab: Tacrolimus Level, LC-MS/MS (07/24/2013 12:00 AM PDT) + +-------+ + + + | Component | Value | Ref Range | Performed | Pathologist | | | | | At | Signature | + +-------+ + + + | Tacrolimus | 6.4 | | EXTERNAL | | | Level [...] + +---------+ + + Protein/Creatinine Ratio, Urine (07/24/2013 12:00 AM PDT) + +-------+ + + + | Component | Value | Ref Range | Performed | Pathologist | | | | | At | Signature | + +-------+ + + + | Protein/Cre | 92.2 | | EXTERNAL | | | at Ratio [...] + +---------+ + + Protein, Urine, Random (07/24/2013 12:00 AM PDT) + +-------+ + + + | Component | Value | Ref Range | Performed | Pathologist | | | | | At | Signature | + +-------+ + + + | Protein, | 19 | | EXTERNAL | | | Urine [...] + +---------+ + + Creatinine, Urine, Random (07/24/2013 12:00 AM PDT) + +-------+ + + + | Component | Value | Ref Range | Performed | Pathologist | | | | | At | Signature | + +-------+ + + + | Creatinine, | 206 | | EXTERNAL | | | 24H [...] | | | + +---------+ + + Vitamin D, Deficiency Screen (25-Hydroxy) (07/24/2013 12:00 AM PDT) + +-------+ + + + | Component | Value | Ref Range | Performed | Pathologist | | | | | At | Signature | + +-------+ + + + | Vit D, | 39 | | EXTERNAL | | | 25-Hydroxy | | | LAB | | + [...] + +---------+ + + External Lab: CBC (07/24/2013 12:00 AM PDT) + +-------+ + + + | Component | Value | Ref Range | Performed | Pathologist | | | | | At | Signature | + +-------+ + + + | WBC | 9.2 | 10 | EXTERNAL | | | | | | LAB | | + +-------+ + + + | Non- | 5.91 | 10 | EXTERNAL | | | Red Blood | | | LAB | | | Cells | | | | | | Counted | | | | | + +-------+ + + + | Hemoglobin | 18.3 | g/dL | EXTERNAL | | | | | | LAB | | + +-------+ + + + | Hematocrit, | 54.9 | % | EXTERNAL | | | POC | | | LAB | | + +-------+ + + + | MCV | 92.9 | fL | EXTERNAL | | | | | | LAB | | + +-------+ + + + | MCH | 31 | pg | EXTERNAL | | | | | | LAB | | + +-------+ + + + | MCHC | 33 | g/dL | EXTERNAL | | | | | | LAB | | + +-------+ + + + | Platelet | 414 | K/ L | EXTERNAL | | | Count | | | LAB | | | Plasma | | | | | + +-------+ + + + | RDW-CV | 13.7 | % | EXTERNAL | | | | | | LAB | | + +-------+ + + + | MPV | | fL | EXTERNAL | | | | | | LAB | | + +-------+ + + + | Differentia | Auto | | EXTERNAL | | | l Type | | | LAB | | + +-------+ + + + | % Segmented | 75.4 | % | EXTERNAL | | | | | | LAB | | | Neutrophils | | | | | + +-------+ + + + | % | 8.4 | % | EXTERNAL | | | Lymphocytes | | | LAB | | + +-------+ + + + | % Monocytes | 14.7 | % | EXTERNAL | | | | | | LAB | | + +-------+ + + + | % | 0.9 | % | EXTERNAL | | | Eosinophils | | | LAB | | + +-------+ + + + | % Basophils | 0.6 | % | EXTERNAL | | | | | | LAB | | + +-------+ + + + | Absolute | | / L | EXTERNAL | | | Segmented | | | LAB | | | Neutrophils | | | | | + +-------+ + + + | Absolute | | / L | EXTERNAL | | | Lymphocytes | | | LAB | | + +-------+ + + + | Absolute | | / L | EXTERNAL | | | Monocytes | | | LAB | | + +-------+ + + + | Absolute | | / L | EXTERNAL | | | Eosinophils | | | LAB | | + +-------+ + + + | Absolute | | [...] | | + +---------+ + + Magnesium (07/24/2013 12:00 AM PDT) + +-------+ + + + | Component | Value | Ref Range | Performed | Pathologist | | | | | At | Signature | + +-------+ + + + | Magnesium | 1.6 | mg/dL | EXTERNAL | | | [...] + +---------+ + + Renal Function Panel (07/24/2013 12:00 AM PDT) + +-------+ + + + | Component | Value | Ref Range | Performed | Pathologist | | | | | At | Signature | + +-------+ + + + | Glucose, | 145 | mg/dL | EXTERNAL | | | Fasting | | | LAB | | + +-------+ + + + | BUN | 25 | mg/dL | EXTERNAL | | | | | | LAB | | + +-------+ + + + | Creatinine | 1.54 | mg/dL | EXTERNAL | | | | | | LAB | | + +-------+ + + + | PHOSPHORUS | | mg/dL | EXTERNAL | | | | | | LAB | | + +-------+ + + + | Albumin | 4.4 | | EXTERNAL | | | | | | LAB | | + +-------+ + + + | Na | 130 | mmol/L | EXTERNAL | | | | | | LAB | | + +-------+ + + + | K | 4.8 | mmol/L | EXTERNAL | | | | | | LAB | | + +-------+ + + + | Cl | 94 | mmol/L | EXTERNAL | | | | | | LAB | | + +-------+ + + + | CO2 | 25 | mmol/L | EXTERNAL | | | | | | LAB | | + +-------+ + + + | Anion Gap | 15.8 | mmol/L | EXTERNAL | | | | | | LAB | | + +-------+ + + + | eGFR if not | | | EXTERNAL | | | | | | LAB | | | RUSSIAN | | | | | + +-------+ + + + | Phosphorus, | 3.7 | | EXTERNAL | | | Inorganic | | | LAB | | + +-------+ + + + | BUN/Creatin | 16.2 | | EXTERNAL | | | ine Ratio | | | LAB | | + +-------+ + + + | Calcium | 9.5 | mg/dL | EXTERNAL | | | | | | LAB | | + +-------+ + + + | Estimated | 50 | mg/dL | EXTERNAL | | | [...] | + +---------+ + + Lipid Panel (07/24/2013 12:00 AM PDT) + +-------+ + + + | Component | Value | Ref Range | Performed | Pathologist | | | | | At | Signature | + +-------+ + + + | Cholesterol | 189 | mg/dL | EXTERNAL | | | | | | LAB | | + +-------+ + + + | Triglycerid | 121 | mg/dL | EXTERNAL | | | es | | | LAB | | + +-------+ + + + | HDL | 46.3 | mg/dl | EXTERNAL | | | | | | LAB | | + +-------+ + + + | LDL, | 119 | mg/dL | EXTERNAL | | | Calculated | | | LAB | | + +-------+ + + + | LDl/HDL | | | EXTERNAL | | | Ratio | | | LAB | | + +-------+ + + + | Chol/HDL | 4.1 | | EXTERNAL | | | Ratio | | | LAB | | + +-------+ + + + | VLDL | 24 | mg/dL | EXTERNAL | | | | | | LAB | | + +-------+ + + + | Non HDL | 143 | | EXTERNAL | | | Chol. [...] + +---------+ + + Urinalysis with Microscopic with Culture if Indicated (05/23/2013 12:00 AM PST) + + + + + + | Component | Value | Ref Range | Performed | Pathologist | | | | | At | Signature | + + + + + + | Color | [place] | | EXTERNAL | | | | | | LAB | | + + + + + + | Clarity, | Clear | | EXTERNAL | | | Urine | | | LAB | | + + + + + + | Spec Grav, | 1.027 | | EXTERNAL | | | Fluid | [...] + + + | pH, Urine | 6 | | EXTERNAL | | | | [...] + + External Lab: Tacrolimus Level, LC-MS/MS (05/23/2013 12:00 AM PST) + +-------+ + + [...] + + Parathyroid Hormone, Intact and Calcium (05/23/2013 12:00 AM PST) + +-------+ + + + | Component | Value | Ref Range | Performed | Pathologist | | | | | At | Signature | + +-------+ + + + | PTH Intact | 101.8 | | EXTERNAL | | | | | | LAB | | + +-------+ + + + | Calcium | 9.1 | | EXTERNAL | | | | [...] + +---------+ + + Protein/Creatinine Ratio, Urine (05/23/2013 12:00 AM PST) + +-------+ + + + | Component | Value | Ref Range | Performed | Pathologist | | | | | At | Signature | + +-------+ + + + | Protein/Cre | 67.1 | | EXTERNAL | | | at Ratio [...] + +---------+ + + Protein, Urine, Random (05/23/2013 12:00 AM PST) + +-------+ + + + | Component | Value | Ref Range | Performed | Pathologist | | | | | At | Signature | + +-------+ + + + | Protein, | 11 | | EXTERNAL | | | Urine [...] + +---------+ + + Creatinine, Urine, Random (05/23/2013 12:00 AM PST) + +-------+ + + + | Component | Value | Ref Range | Performed | Pathologist | | | | | At | Signature | + +-------+ + + + | Creatinine, | 164 | | EXTERNAL | | | 24H [...] + +---------+ + + External Lab: CBC (05/23/2013 12:00 AM PST) + +-------+ + + + | Component | Value | Ref Range | Performed | Pathologist | | | | | At | Signature | + +-------+ + + + | WBC | 8.3 | 10 | EXTERNAL | | | | | | LAB | | + +-------+ + + + | Non- | 5.53 | 10 | EXTERNAL | | | Red Blood | | | LAB | | | Cells | | | | | | Counted | | | | | + +-------+ + + + | Hemoglobin | 17.0 | g/dL | EXTERNAL | | | | | | LAB | | + +-------+ + + + | Hematocrit, | 52.0 | % | EXTERNAL | | | POC | | | LAB | | + +-------+ + + + | MCV | 94.1 | fL | EXTERNAL | | | | | | LAB | | + +-------+ + + + | MCH | 31 | pg | EXTERNAL | | | | | | LAB | | + +-------+ + + + | MCHC | 33 | g/dL | EXTERNAL | | | | | | LAB | | + +-------+ + + + | Platelet | 411 | K/ L | EXTERNAL | | | Count | | | LAB | | | Plasma | | | | | + +-------+ + + + | RDW-CV | 15.0 | % | EXTERNAL | | | | | | LAB | | + +-------+ + + + | MPV | | fL | EXTERNAL | | | | | | LAB | | + +-------+ + + + | Differentia | Auto | | EXTERNAL | | | l Type | | | LAB | | + +-------+ + + + | % Segmented | 69 | % | EXTERNAL | | | | | | LAB | | | Neutrophils | | | | | + +-------+ + + + | % | 19 | % | EXTERNAL | | | Lymphocytes | | | LAB | | + +-------+ + + + | % Monocytes | 8 | % | EXTERNAL | | | | | | LAB | | + +-------+ + + + | % | 3 | % | EXTERNAL | | | Eosinophils | | | LAB | | + +-------+ + + + | % Basophils | 1 | % | EXTERNAL | | | | | | LAB | | + +-------+ + + + | Absolute | | / L | EXTERNAL | | | Segmented | | | LAB | | | Neutrophils | | | | | + +-------+ + + + | Absolute | | / L | EXTERNAL | | | Lymphocytes | | | LAB | | + +-------+ + + + | Absolute | | / L | EXTERNAL | | | Monocytes | | | LAB | | + +-------+ + + + | Absolute | | / L | EXTERNAL | | | Eosinophils | | | LAB | | + +-------+ + + + | Absolute | | [...] | | | + +---------+ + + Uric Acid (05/23/2013 12:00 AM PST) + +-------+ + + + | Component | Value | Ref Range | Performed | Pathologist | | | | | At | Signature | + +-------+ + + + | Uric Acid | 4.5 | | EXTERNAL | | | | [...] | | | + +---------+ + + ALT (05/23/2013 12:00 AM PST) + +-------+ + + + | Component | Value | Ref Range | Performed | Pathologist | | | | | At | Signature | + +-------+ + + + | ALT | 24 | U/L | EXTERNAL | | | | | [...] | | | + +---------+ + + AST (05/23/2013 12:00 AM PST) + +-------+ + + + | Component | Value | Ref Range | Performed | Pathologist | | | | | At | Signature | + +-------+ + + + | AST | 18 | U/L | EXTERNAL | | | | | [...] | | + +---------+ + + Magnesium (05/23/2013 12:00 AM PST) + +-------+ + + + | Component | Value | Ref Range | Performed | Pathologist | | | | | At | Signature | + +-------+ + + + | Magnesium | 1.5 | mg/dL | EXTERNAL | | | [...] | | | + +---------+ + + CK Total (05/23/2013 12:00 AM PST) + +-------+ + + + | Component | Value | Ref Range | Performed | Pathologist | | | | | At | Signature | + +-------+ + + + | CK, Total | 111 | U/L | EXTERNAL | | | | | [...] + +---------+ + + Renal Function Panel (05/23/2013 12:00 AM PST) + +-------+ + + + | Component | Value | Ref Range | Performed | Pathologist | | | | | At | Signature | + +-------+ + + + | Glucose, | 51 | mg/dL | EXTERNAL | | | Fasting | | | LAB | | + +-------+ + + + | BUN | 24 | mg/dL | EXTERNAL | | | | | | LAB | | + +-------+ + + + | Creatinine | 1.24 | mg/dL | EXTERNAL | | | | | | LAB | | + +-------+ + + + | PHOSPHORUS | | mg/dL | EXTERNAL | | | | | | LAB | | + +-------+ + + + | Albumin | 4.6 | | EXTERNAL | | | | | | LAB | | + +-------+ + + + | Na | 138 | mmol/L | EXTERNAL | | | | | | LAB | | + +-------+ + + + | K | 4.5 | mmol/L | EXTERNAL | | | | | | LAB | | + +-------+ + + + | Cl | 101 | mmol/L | EXTERNAL | | | | | | LAB | | + +-------+ + + + | CO2 | 25 | mmol/L | EXTERNAL | | | | | | LAB | | + +-------+ + + + | Anion Gap | 16.5 | mmol/L | EXTERNAL | | | | | | LAB | | + +-------+ + + + | eGFR if not | | | EXTERNAL | | | | | | LAB | | | RUSSIAN | | | | | + +-------+ + + + | Phosphorus, | 3.2 | | EXTERNAL | | | Inorganic | | | LAB | | + +-------+ + + + | BUN/Creatin | 19.4 | | EXTERNAL | | | ine Ratio | | | LAB | | + +-------+ + + + | Calcium | 9.1 | mg/dL | EXTERNAL | | | | | | LAB | | + +-------+ + + + | Estimated | 71 | mg/dL | EXTERNAL | | | [...]
--- OUTSIDE RECORDS SUMMARY | ~2019-10-28 | XMS | Encounter Summary ---
Demographics + + + | Address | [address] | | | [place] [address] | + + + | Home Phone | | + + + | Preferred Language | Unknown | + + + | Marital Status | Single | + + + | Christian Affiliation | CHR | + + + | Race | White | + + + | Ethnic Group | Not or | + + + Author + + + | Organization | Unknown | + + + | Address | Unknown | + + + | Phone | Unavailable | + + + Support + + + + + | Name | Relationship | Address | Phone | + + + + + | Krissy Rogers | ECON | [place] [address] | | + + + + + | Bay Rogers | ECON | Unknown | | + + + + + Care Team Providers + +------+ + | Care Survey Interviewer Name | Role | Phone | + +------+ + | Bola Chaudhry MD | PCP | | + +------+ + Encounter Details +--------+--------+ + + + | Date | Type | Department | Care Team | Description | +--------+--------+ + + + | 01/28/ | Travel | | | | | 2019 | | | | | +--------+--------+ + + + Social History + +-------+ [...] [facility] | | | | | | [place], [place] | | | | | | [address] | | | | | | [phone] | | | | | | | | +--------+---------+ + + + documented as of this encounter Visit Diagnoses Not on filedocumented in this encounter"
--- OUTSIDE RECORDS SUMMARY | ~2019-10-28 | XMS | Encounter Summary ---
Demographics + + + | Address | [address] | | | [place] [address] | + + + | Home Phone | | + + + | Preferred Language | Unknown | + + + | Marital Status | Single | + + + | Sikhism Affiliation | CHR | + + + | Race | White | + + + | Ethnic Group | Not or | + + + Author + + + | Author | [facility] | + + + | Organization | [facility] | + + + | Address | Unknown | + + + | Phone | Unavailable | + + + Support + + + + + | Name | Relationship | Address | Phone | + + + + + | Krissy Rogers | BRADEN | [place] [address] | | + + + + + | Bay Rogers | ECON | Unknown | | + + + + + Care Team Providers + +------+ + | Care Rejoiner Name | Role | Phone | + +------+ + | Bola Chaudhry MD | PCP | | + +------+ + Encounter Details +--------+ + + + + | Date | Type | Department | Care Team | Description | +--------+ + + + + | 05/02/ | Ancillary | LAB [facility] | | | | 2012 | Orders | [facility] | | | | | | [address] | | | | | | [place], | | | | | | [place] [address] | | | +--------+ + + + [...] | | 2019 | Visit | | [address] | | | | | | [address] [facility] | | | | | | [place], [place] | | | | | | [address] | | | | | | [phone] | | | | | | | | +--------+---------+ + + + documented as of this encounter Procedures + +--------+ + + + | Procedure Name | Priori | Date/Time | Associated Diagnosis | Comments | | | ty | | | | + +--------+ + + + | LIT FLOW HLA AB | Routin | 05/02/2012 | | | | QUICK SCREEN I/II | e | 2:03 PM | | | | | | PST | | | + +--------+ + + + documented in this encounter Results LIT FLOW HLA AB QUICK SCREEN I/II (05/02/2012 2:03 PM PST) + + | Specimen | + + | Blood - Blood | + + + + + + + | Performing | Address | City/State/Zipcode | Phone Number | | Organization | | | | + + + + + | [facility] - | [address] | [place] [address] | | | IMMUNOGENETICS/TRANS | [address] | | | | [facility] | | | | + + + + + documented in this encounter Visit Diagnoses Not on filedocumented in this encounter"
--- OUTSIDE RECORDS SUMMARY | ~2019-10-28 | XMS | Encounter Summary ---
Demographics + + + | Address | [address] | | | [place] [address] | + + + | Home Phone [...] + + + | Author | [facility] | + + + | Organization | [facility] | + + + | Address | Unknown | + + + | Phone | Unavailable | + + + Support + + + + + | Name | Relationship | Address | Phone | + + + + + | Krissy Rogers | BRADEN | [place] [address] | | + + + + + | Bay Rogers | ECON | Unknown | | + + + + + Care Team Providers + +------+ + | Care Digital Archivist Name | Role | Phone | + +------+ + | Bola Chaudhry MD | PCP | | + +------+ + Reason for Visit + + + | Reason | Comments | + + + | Follow-up visit | | + + + | Diabetic retinopathy | | + + + Benefits Check (Routine) +--------+--------+ + + + + | Status | Reason | Specialty | Diagnoses / | Referred By | Referred To | | | | | Procedures | Contact | Contact | +--------+--------+ + + + + | Closed | | Ophthalmology | | Non-[facility] | Flaxel, | | | | | | Epic Dept | MD Maria Elena | | | | | | | [address] | | | | | | | [address] | | | | | | | [place] | | | | | | | [place], [place] | | | | | | | [address] | | | | | | | Phone: | | | | | | | [phone] | | | | | | | Fax: | | | | | | | [phone] | +--------+--------+ + + + + Encounter Details +--------+---------+ + + + | Date | Type | Department | Care Team | Description | +--------+---------+ + + + | 01/24/ | Office | [facility] | Maria Elena Balbuena, | Proliferative | | 2018 | Visit | [facility] at | [address] | diabetic retinopathy | | | | Annabelle Jamison [address] | of both eyes | | | | [address] | [place], [place] | without macular | | | | [facility] | [address] | edema associated | | | | floor [place], [place] | [phone] | with type 2 diabetes | | | | [address] | | mellitus (HCC) | | | | | | (Primary Dx); Sudden | | | | | | visual loss of | | | | | | right eye; | | | | | | Pseudophakia, both | | | | | | eyes | +--------+---------+ + + + Social History [...] of this encounter Progress Notes Maria Elena Balbuena MD - 01/24/2018 2:15 PM PDTFormatting of this note might be different f rom the original. [facility] Progress Note 01/24/2018 47 y.o. male Proliferative diabetic retinopathy of both eyes without macular edema associated with type 2 diabetes mellitus (HCC) s/p PPV/PPL/retinectomy/EL/gas OS on 12/02/2008 doing well from eye stand point -retina stab le and attached Vision, Loss, Sudden Vision loss OD 2008 most likely due to severe hypoperfusion during dialysis - had brain MRI and findings and exam reviewed in the past with Dr. Roman - stable without recovery but no further decline - vision better post YAG last year per patient - stable Pseudophakia, both eyes Sulcus IOL OS good position, post YAG OD last year - stable Has seen Dr. Zee in the past Call for decreased vision, increased distortion, increased pain, new floaters or flashing l ights Follow up: Return in about 1 year (around 01/24/2019) for OCT OU. Chief Complaint: Follow-up visit Diabetic retinopathy HPI (Edited by physician):Patient mentioned he notices his vision has been getting blurry a gain - similar to prior to the last YAG laser treatment. No new flashes or eye pains. Current Outpatient Prescriptions (Other) Medication Sig aspirin [...] Take by mouth. hydroCHLOROthiazide Take by mouth. HYDROcodone-acetaminophen Take by mouth. Take 1 tablet by mouth Every 4 Hours As Neede d for Pain. insulin glargine Inject 35 Units under the skin (SUBC) once daily at bedtime. LEVOTHYROXINE ORAL Take 150 mcg by mouth once daily. LORazepam Take [...] mg by mouth At Bedtime As Needed. Reviewed: Tobacco | Allergies | Meds | Problems | Med Hx | Surg Hx | Fam Hx | Examination: See Ophthalmology Module Attestations: The lens coating technician, under the supervision of the physician, is responsible for performing the f ollowing sections: RFV, ROS, PMH, PSH, SocHx, FH, Med list, Base Ophth Exam. The attending physician is responsible for the entire content of the note and has personall y performed the HPI and the physical examination MARIA ELENA BALBUENA MD documented in this [...] [address] | | | | | | [place], [place] | | | | | | [address] | | | | | | [phone] | | | | | | | | +--------+---------+ + + + documented as of this encounter Procedures + +--------+ + + + | Procedure Name | Priori | Date/Time | Associated Diagnosis | Comments | | | ty | | | | + +--------+ + + + | OCT, RETINA | Routin | 01/24/2018 | Proliferative | Results for this | | | e | 2:38 PM | diabetic retinopathy | procedure are in the | | | | PDT | of both eyes | results section. | | | | | without macular | | | | | | edema associated | | | | | | with type 2 diabetes | | | | | | mellitus (HCC) | | + +--------+ + + + documented in this encounter Results OCT, RETINA (01/28/2019 1:43 PM PDT) + + + | Narrative | Performed At | + + + | Cytologist | [facility] | | DocumentationRight EyeQuality: [...] | + + + + + | [facility] | [address] | [place] [address] | | | INSTITUTE | [place]. | | | + + + + + OCT, RETINA (01/24/2018 2:38 PM PDT) + + + | Narrative | Performed At | + + + | Cytologist | [facility] | | DocumentationRight EyeQuality: good Central macular thickness: | [facility] | | 200 Segmentation: accurate Left EyeQuality: good Central | | | macular thickness: 260 Segmentation: accurate Provider | | | DocumentationRight EyeContour: no central thickening, unchanged | | | Left EyeContour: no central thickening, unchanged | | | | | | | | |Left Eye | | |Quality: good | | | | | |Central macular thickness: 260 | | |Segmentation: accurate | | | | | | | | |Provider Documentation | | |Right Eye | | |Contour: no central thickening, unchanged | | | | | | | | |Left Eye | | |Contour: no central thickening, unchanged | | + + + + + + + + | Performing | Address | City/State/Zipcode | Phone Number | | Organization | | | | + + + + + | [facility] | [address] | [place] [address] | | | INSTITUTE | [place]. | | | + + + + + documented in this encounter Visit Diagnoses + + | Diagnosis | + + | Proliferative diabetic retinopathy of both eyes without macular edema associated with | | type 2 diabetes mellitus (HCC) - Primary | + + | Sudden visual loss of right eye Sudden visual loss | + + | Pseudophakia, both eyes Lens replaced by other means | + + documented in this encounter"
--- OUTSIDE RECORDS SUMMARY | ~2019-10-28 | XMS | Encounter Summary ---
Demographics + + + | Address | [address] | | | [place] [address] | + + + | Home Phone | | + + + | Preferred Language | Unknown | + + + | Marital Status | | + + + | Yarsani Affiliation | 1013 | + + + | Race | Unknown | + + + | Ethnic Group | Unknown | + + + Author + + + | Author | [facility] | | | and [place] | + + + | Organization | [facility] | | | and [place] | + + + | Address | Unknown | + + + | Phone | Unavailable | + + + Support + + + + + | Name | Relationship | Address | Phone | + + + + + | Deysi Montelongo | ECON | [address] | | | | | [place] | | | | | [address] | | + + + + + | Ellen Rogers | ECON | [address] | | | | | [place] | | + + + + + | Gisell Rogers | ECON | Unknown | | + + + + + Care Team Providers + +------+ + | Care Blender Operator Name | Role | Phone | + +------+ + | Fatuma Agee NP | PCP | | + +------+ + Reason for Visit +---------+ + | Reason | Comments | +---------+ + | Results | 03/14/19 | +---------+ + Encounter Details +--------+ + + + + | Date | Type | Department | Care Team | Description | +--------+ + + + + | 03/17/ | Documentati | [facility] | Pet[place], | Results (03/14/19) | | 2019 | on | NEPHROLOGY [place] | Mert Junior | | | | | [address] | [place] | | | | | [place] [facility] | | | | | | [place], [place] | | | | | | [address] | | | | | | [phone] | | | +--------+ + + + [...] 2020 | Visit | | [address] | | | | | | [address] [place] | | | | | | [address] | | | | | | | | +--------+---------+ + + + documented as of this encounter Procedures + +--------+ + + + | Procedure Name | Priori | Date/Time | Associated Diagnosis | Comments | | | ty | | | | + +--------+ + + + | MAGNESIUM | Routin | 02/11/2019 | | Results for this | | | e | | | procedure are in the | | | | | | results section. | + +--------+ + + + | BASIC METABOLIC | Routin | 02/11/2019 | | Results for this | | PANEL | e | | | procedure are in the | | | | | | results section. | + +--------+ + + + documented in this encounter Results Magnesium (02/11/2019) + +---------+ + + + | Component | Value | Ref Range | Performed | Pathologist | | | | | At | Signature | + +---------+ + + + | Magnesium | 1.3 (A) | 1.7 - 2.5 mg/dL | | | + +---------+ + + + + + | Specimen | + + | Blood | + + Basic Metabolic Panel (02/11/2019) + + + + + + | Component | Value | Ref Range | Performed | Pathologist | | | | | At | Signature | + + + + + + | Na | 137 | 132 - 143 | | | | | | mmol/L | | | + + + + + + | K | 4.0 | 3.6 - 5.1 | | | | | | mmol/L | | | + + + + + + | Cl | 96 | 95 - 112 mmol/L | | | + + + + + + | CO2 | 31 | 19 - 31 mmol/L | | | + + + + + + | Anion Gap | 14 | 7 - 21 mmol/L | | | + + + + + + | Glucose | 114 (A) | 70 - 100 mg/dL | | | + + + + + + | Calcium | 9.1 | 8.5 - 10.3 | | | + + + + + + | BUN | 25 (A) | 6 - 23 mg/dL | | | + + + + + + | Creatinine | 1.41 (A) | 0.60 - 1.35 | | | | | | mg/dL | | | + + + + + + | Estimated | 53.0 (A) | 60.0 - 140.0 | | | | GFR | | mL/min/1.73m2 | | | + + + + + + | BUN/Creatin | 17.7 | 6.0 - 28.6 | | | | ine Ratio | | | | | + + + + + + + + | Specimen | + + | Blood | + + documented in this encounter Visit Diagnoses Not on filedocumented in this encounter"
--- OUTSIDE RECORDS SUMMARY | ~2019-10-28 | XMS | Encounter Summary ---
Demographics + + + | Address | [address] | | | [place] [address] | + + + | Home Phone | | + + + | Preferred Language | Unknown | + + + | Marital Status | | + + + | Gnosticist Affiliation | 1013 | + + + | Race | Unknown | + + + | Ethnic Group | Unknown | + + + Author + + + | Author | [facility] | | | and [place] | + + + | Organization | [facility] | | | [...] [address] | | | | | [address] | | + + + + + | Ellen Rogers | ECON | [address] | | | | | [place] | | + + + + + | Gisell Rogers | ECON | Unknown | | + + + + + Care Team Providers + +------+ + | Care Project Hire Name | Role | Phone | + +------+ + | Libzet Sellers MD | PCP | | + +------+ + Encounter Details +--------+ + + + + | Date | Type | Department | Care Team | Description | +--------+ + + + + | 03/18/ | Orders Only | [facility] | Jaren Pelayo MD | | | 2013 | | [place]HOLOGY [place] | [address] [place] | | | | | [address] | [address] [place], [place] | | | | | [address] [place], [place] | [address] | | | | | [address] | | | | | | [phone] | | | +--------+ + + + [...] 2020 | Visit | | [address] [facility] | | | | | | [address] [place] | | | | | | [address] | | | | | | | | +--------+---------+ + + + documented as of this encounter Procedures + +--------+ + + + | Procedure Name | Priori | Date/Time | Associated Diagnosis | Comments | | | ty | | | | + +--------+ + + + | EXTERNAL LAB: | Routin | 03/18/2014 | | Results for this | | TACROLIMUS LEVEL, | e | 12:00 AM | | procedure are in the | | LC-MS/MS | | PST | | results section. | + +--------+ + + + | EXTERNAL LAB: CBC | Routin | 03/18/2014 | | Results for this | | | e | 12:00 AM | | procedure are in the | | | | PST | | results section. | + +--------+ + + + | URINALYSIS WITH | Routin | 03/18/2014 | | Results for this | | MICROSCOPIC WITH | e | 12:00 AM | | procedure are in the | | CULTURE IF INDICATED | | PST | | results section. | + +--------+ + + + | LIPID PANEL | Routin | 03/18/2014 | | Results for this | | | e | 12:00 AM | | procedure are in the | | | | PST | | results section. | + +--------+ + + + | ALT | Routin | 03/18/2014 | | Results for this | | | e | 12:00 AM | | procedure are in the | | | | PST | | results section. | + +--------+ + + + | PROTEIN/CREATININE | Routin | 03/18/2014 | | Results for this | | RATIO, URINE | e | 12:00 AM | | procedure are in the | | | | PST | | results section. | + +--------+ + + + | BK VIRUS, NAAT, | Routin | 03/18/2014 | | Results for this | | URINE, QUANT | e | 12:00 AM | | procedure are in the | | | | PST | | results section. | + +--------+ + + + | PROTEIN, URINE, | Routin | 03/18/2014 | | Results for this | | RANDOM | e | 12:00 AM | | procedure are in the | | | | PST | | results section. | + +--------+ + + + | CREATININE, URINE, | Routin | 03/18/2014 | | Results for this | | RANDOM | e | 12:00 AM | | procedure are in the | | | | PST | | results section. | + +--------+ + + + | AST | Routin | 03/18/2014 | | Results for this | | | e | 12:00 AM | | procedure are in the | | | | PST | | results section. | + +--------+ + + + | MAGNESIUM | Routin | 03/18/2014 | | Results for this | | | e | 12:00 AM | | procedure are in the | | | | PST | | results section. | + +--------+ + + + | CK TOTAL | Routin | 03/18/2014 | | Results for this | | | e | 12:00 AM | | procedure are in the | | | | PST | | results section. | + +--------+ + + + | RENAL FUNCTION PANEL | Routin | 03/18/2014 | | Results for this | | | e | 12:00 AM | | procedure are in the | | | | PST | | results section. | + +--------+ + + + documented in this encounter Results Urinalysis with Microscopic with Culture if Indicated (03/18/2014 12:00 AM PST) + + + + + + | Component | Value | Ref Range | Performed | Pathologist | | | | | At | Signature | + + + + + + | Color | Natalie | | EXTERNAL | | | | | | LAB | | + + + + + + | Clarity, | Clear | | EXTERNAL | | | Urine | | | LAB | | + + + + + + | Spec Grav, | 1.033 (A) | 1.005 - 1.030 | EXTERNAL | [...] + + + + | Total | Negatrive | | EXTERNAL | | | Protein [...] + + + + | Ketones | 5 | | EXTERNAL | | | | | | LAB | | + + + + + + | Bilirubin, | 1+ | | EXTERNAL | | | Urine | | | LAB | | + + + + + + | Glucose, | Negative | | EXTERNAL | | [...] + + External Lab: Tacrolimus Level, LC-MS/MS (03/18/2014 12:00 AM PST) + +-------+ + + [...] + +---------+ + + Protein/Creatinine Ratio, Urine (03/18/2014 12:00 AM PST) + +-------+ + + + | Component | Value | Ref Range | Performed | Pathologist | | | | | At | Signature | + +-------+ + + + | Protein/Cre | 75.9 | 0 - 150 | EXTERNAL | [...] + + BK Virus, NAAT, Urine, Quant (03/18/2014 12:00 AM PST) + + | Specimen | + + | Urine specimen | | (specimen) | + + + + + | Impressions | Performed At | + + + | BK Virus Qnt PCR Urine: Bk Virus Quant: <390 Bk Virus Quant: | EXTERNAL LAB | | <2.6 Interpretation: None Detected | | + + + + +---------+ + + | Performing | Address | City/State/Zipcode | Phone Number | | Organization | | | | + +---------+ + + | EXTERNAL LAB | | | | + +---------+ + + Protein, Urine, Random (03/18/2014 12:00 AM PST) + +-------+ + + + | Component | Value | Ref Range | Performed | Pathologist | | | | | At | Signature | + +-------+ + + + | Protein, | 17 | 0.0 - 50.0 | EXTERNAL | [...] + +---------+ + + Creatinine, Urine, Random (03/18/2014 12:00 AM PST) + +-------+ + + + | Component | Value | Ref Range | Performed | Pathologist | | | | | At | Signature | + +-------+ + + + | Creatinine, | 224 | | EXTERNAL | | | 24H [...] + +---------+ + + External Lab: CBC (03/18/2014 12:00 AM PST) + + + + [...] + + + + | Non- | 5.83 (A) | 4.3 - 5.7 10 | EXTERNAL | | | Red Blood | | | LAB | | | Cells | | | | | | Counted | | | | | + + + + + + | Hemoglobin | 17.5 | 13.5 - 18.0 | EXTERNAL | | | | | | LAB | | + + + + + + | Hematocrit, | 53.1 (A) | 41 - 50 | EXTERNAL | | | POC | | | LAB | | + + + + + + | MCV | 91.0 | 81 - 99 | EXTERNAL | | | | | | LAB | | + + + + + + | MCH | 33 | 30 - 36 | EXTERNAL | | | | | | LAB | | + + + + + + | MCHC | 30 | 27 - 33 | EXTERNAL | | | | | | LAB | | + + + + + + | Platelet | 335 | 140 - 440 K/ L | EXTERNAL | | | Count | | | LAB | | | Plasma | | | | | + + + + + + | RDW-CV | 14.7 | 10.5 - 15.0 % | EXTERNAL [...] + + + | % Segmented | 72.8 | 39 - 80 % | EXTERNAL | | | | | | LAB | | | Neutrophils | | | | | + + + + + + | % | 10.7 (A) | 24 - 44 % | EXTERNAL | | | Lymphocytes | | | LAB | | + + + + + + | % Monocytes | 13.8 (A) | 0 - 12 % | EXTERNAL | | | | | | LAB | | + + + + + + | % | 1.9 | 0 - 6 % | EXTERNAL [...] | | + +---------+ + + ALT (03/18/2014 12:00 AM PST) + +-------+ + + + | Component | Value | Ref Range | Performed | Pathologist | | | | | At | Signature | + +-------+ + + + | ALT | 14 | 7 - 52 U/L | EXTERNAL | | | | [...] | | + +---------+ + + AST (03/18/2014 12:00 AM PST) + +-------+ + + + | Component | Value | Ref Range | Performed | Pathologist | | | | | At | Signature | + +-------+ + + + | AST | 13 | 13 - 39 U/L | EXTERNAL | | | | [...] | | + +---------+ + + Magnesium (03/18/2014 12:00 AM PST) + +---------+ + + + | Component | Value | Ref Range | Performed | Pathologist | | | | | At | Signature | + +---------+ + + + | Magnesium | 1.2 (A) | 1.7 - 2.5 mg/dL | [...] | + +---------+ + + CK Total (03/18/2014 12:00 AM PST) + +-------+ + + + | Component | Value | Ref Range | Performed | Pathologist | | | | | At | Signature | + +-------+ + + + | CK, Total | 62 | 24 - 195 U/L | EXTERNAL | | | | [...] + +---------+ + + Renal Function Panel (03/18/2014 12:00 AM PST) + +---------+ + + + | Component | Value | Ref Range | Performed | Pathologist | | | | | At | Signature | + +---------+ + + + | Glucose, | 318 (A) | 70 - 100 mg/dL | EXTERNAL | | | Fasting | | | LAB | | + +---------+ + + + | BUN | 21 | 6 - 23 mg/dL | EXTERNAL | | | | | | LAB | | + +---------+ + + + | Creatinine | 1.34 | 0.60 - 1.35 | EXTERNAL | [...] +---------+ + + + | Na | 131 (A) | 132 - 143 | EXTERNAL | | | | | mmol/L | LAB | | + +---------+ + + + | K | 4.7 | 3.6 - 5.1 | EXTERNAL | | | | | mmol/L | LAB | | + +---------+ + + + | Cl | 97 | 95 - 112 mmol/L | EXTERNAL | | | | | | LAB | | + +---------+ + + + | CO2 | 28 | 19 - 31 mmol/L | EXTERNAL | | | | | | LAB | | + +---------+ + + + | Anion Gap | 10.7 | 7 - 21 mmol/L | EXTERNAL | | | | | | LAB | | + +---------+ + + + | eGFR if not | | | EXTERNAL | | | | | | LAB | | | EQUATORIAL GUINEAN | | | | | + +---------+ + + + | Phosphorus, | 4.0 | 2.5 - 5.0 | EXTERNAL | | | Inorganic | | | LAB | | + +---------+ + + + | BUN/Creatin | 15.7 | 6.0 - 28.6 | EXTERNAL | | | ine Ratio | | | LAB | | + +---------+ + + + | Calcium | 8.5 | 8.4 - 10.2 | EXTERNAL | | | | | mg/dL | LAB | | + +---------+ + + + | Estimated | 58 | mg/dL | EXTERNAL | | | [...] | + +---------+ + + Lipid Panel (03/18/2014 12:00 AM PST) + +---------+ + + + | Component | Value | Ref Range | Performed | Pathologist | | | | | At | Signature | + +---------+ + + + | Cholesterol | 178 | 200 mg/dL | EXTERNAL | | | | | | LAB | | + +---------+ + + + | Triglycerid | 187 (A) | 30 - 150 mg/dL | EXTERNAL | | | es | | | LAB | | + +---------+ + + + | HDL | 43.3 | 40 mg/dl | EXTERNAL | | | | | | LAB | | + +---------+ + + + | LDL, | 97 | 100 mg/dL | EXTERNAL | | | Calculated | | | LAB | | + +---------+ + + + | LDl/HDL | | | EXTERNAL | | | Ratio | | | LAB | | + +---------+ + + + | Chol/HDL | 4.1 | 4.97 | EXTERNAL | | | Ratio | | | LAB | | + +---------+ + + + | VLDL | 37 | 4 - 40 mg/dL | EXTERNAL | | | | | | LAB | | + +---------+ + + + | Non HDL | 135 (A) | 130 | EXTERNAL | | | Chol. | | | LAB | | | (LDL+VLDL) | | | | | + +---------+ [...]
--- OUTSIDE RECORDS SUMMARY | ~2019-10-28 | XMS | Encounter Summary ---
Demographics + + + | Address | [address] | | | [place] [address] | + + + | Home Phone | | + + + | Preferred Language | Unknown | + + + | Marital Status | Single | + + + | Holiness Affiliation | CHR | + + + | Race | White | + + + | Ethnic Group | Not or | + + + Author + + + | Author | [facility] | + + + | Organization | [facility] | + + + | Address | Unknown | + + + | Phone | Unavailable | + + + Support + + + + + | Name | Relationship | Address | Phone | + + + + + | Krissy Rogers | BRADEN | [place] [address] | | + + + + + | Bay Rogers | ECON | Unknown | | + + + + + Care Team Providers + +------+ + | Care Jboss Architect Name | Role | Phone | [...] | | | | | [address]a Hernandez [place], | | | | | | [place] [address] | | | +--------+ + + + [...] | | 2019 | Visit | | [address] | | | | | | [address] [address] | | | | | | [place], [place] | | | | | | [address] | | | | | | [phone] | | | | | | | [...] + + + | [facility] - | [address] | [place] [address] | | | IMMUNOGENETICS/TRANS | [address] | | | | [facility] | | | | + + + + + documented in this encounter Visit Diagnoses Not on filedocumented in this encounter"
--- OUTSIDE RECORDS SUMMARY | ~2019-10-28 | XMS | Encounter Summary ---
Demographics + + + | Address | [address] | | | [place] [address] | + + + | Home Phone | | + + + | Preferred Language | Unknown | + + + | Marital Status | Single | + + + | Confucianist Affiliation | CHR | + + + | Race | White | + + + | Ethnic Group | Not or | + + + Author + + + | Author | [facility] | + + + | Organization | [facility] | + + + | Address | Unknown | + + + | Phone | Unavailable | + + + Support + + + + + | Name | Relationship | Address | Phone | + + + + + | Krissy Rogers | BRADEN | [place] [address] | | + + + + + | Bay Rogers | ECON | Unknown | | + + + + + Care Team Providers + +------+ + | Care Floor Covering Installer Name | Role | Phone | + +------+ + | Berna Keyes MD | PCP | | + +------+ + Reason for Visit +---------+ + | Reason | Comments | +---------+ + | Post Op | | +---------+ + Encounter Details +--------+---------+ + + + | Date | Type | Department | Care Team | Description | +--------+---------+ + + + | 09/24/ | Office | [facility] | Maria Elena Lieberman, | DM Eye Manif Type | | 2008 | Visit | [facility] at | [address] | II, Uncontrolled | | | | [facility] [address] | ([facility]); Proliferative | | | | [address] | [place], [place] | Diabetic | | | | [facility] | [address] | Retinopathy ([facility]); | | | | floor [place], [place] | [phone] | Vision, Loss, | | | | [address] | | Sudden; Unspecified | | | | | | Retinal Detachment | +--------+---------+ + + + Social [...] Progress Notes Maria Elena Lieberman MD - 09/24/2008 1:51 PM PDTFormatting of this note might be different f rom the original. Retina Division Progress Note: Post OP Note CC: Postop visit HPI: Wilson Rogers is a 38 y.o. male status post PPV,MP,EL SO OS on 09/16/2008.vision remains the same pain level improved since last visit . 05/02 Referring Provider: Dr. 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 Allergies: Penicillins and Lisinopril Meds: PF 4x, Ofloxacin 4x, Atropine 2x Examination: 09/17/2008 [facility] IOP 8:22 AM Left Eye LP NT ni 17 09/24/2008 [facility] IOP 1:51 PM Right Eye HM with projection / / 11 Left Eye HM with projection / / 12 Alert and oriented times 4. Left eye dilated only with Mydriacyl and Neosynephrine @ 1:51 PM by Lopez Maciel Chart Notes Reviewed bck Both eyes dilated with Mydriacyl and Neosynephrine OU @ 2:01 PM Lizbeth Darden SLE OD OS Lids Unremarkable Mild edema post op Conjunctiva White and quiet Closed post op Cornea Clear Clear AC Deep and quiet Deep few cells - 2 oil bubbles in ac Iris Normal Normal Lens 1+ NSC, 1+ PSC 1+ NSC trace psc Ant Vit Clear + oil DFE: Ophthalmoscopy of the right eye disclosed retina that is flat all over. The vessels are se verely attenuated. There are multiple CWS. Minimal edema. There are PRP scars as well as a treated hole in the temopral macula. No active NV or traction. Ophthalmoscopy of the left eye disclosed retina that is flat all over. There is good laser to the retinal breaks. Retinectomy edges are flat. There is minimal pre-retinal heme over the optic nerve. Good oil fill. The cup-to-disc ratio was 0.5 in the right eye. The nerve is pale. The CDR OS is 0.4 Patient seen today with Dr. Roman IMPRESSION: Post op status post PPV/MP/retinectomy/oil OS on 09/16/2008 - good IOP some oil in ac - stab le Will consider oil removal in 4-6 weeks 2. Vision loss OD. There is diffuse nonperfusion, but no clear etiology for sudden visual d ecline based on clinical or FA findings. - seen today by Dr. Roman, neuro-ophthalmology who will also review the MRI - most likely etiology is vascular due to significant hypotension in an eye that is ischemic - vision recovery may occur to some extent - note done to dialys is doc and PCP to attempt to limit hypotensive episodes as much as possible - patient is als o aware of this - he is monitoring his blood pressure PLAN: Ofloxacin OS qid - stop Atropine 1% OS bid Prednisolone OS qid No lifting, bending or straining x 2 weeks. Shield at night time x 1 week. Pain medicines as needed. Positioning: face down or right side down at night only Return to clinic in 2 weeks Note hand-written for patient to carry to dialysis doc and PCP Maria Elena Lieberman MD documented in this encounter Plan of Treatment +--------+---------+ + + + | Date | Type | Specialty | Care Team | Description | +--------+---------+ + + + | 01/26/ | Office | Ophthalmology | Maria Elena Lieberman, | | | 2019 | Visit | | [address] | | | | | | [place], [place] | | | | | | [address] | | | | | | [phone] | | | | | | | | +--------+---------+ + + + documented as of this encounter Procedures + +--------+ + + + | Procedure Name | Priori | Date/Time | Associated Diagnosis | Comments | | | ty | | | | + +--------+ + + + | RADIOLOGY | | 09/24/2008 | | Results for this | | | | 12:00 AM | | procedure are in the | | | | PDT | | results section. | + +--------+ + + + documented in this encounter Results RADIOLOGY (09/24/2008 12:00 AM PDT) + + + | Narrative | Performed At | + + + | | | + + + + + | Procedure Note | + + | Yoko Fulton - 09/24/2008 12:00 AM PDT | | | + + documented in this encounter Visit Diagnoses + + | Diagnosis | + + | Type II or unspecified type diabetes mellitus with ophthalmic manifestations, | | uncontrolled(250.52) ([facility]) Type II or unspecified type diabetes mellitus with | | ophthalmic manifestations, uncontrolled | + + | Proliferative diabetic retinopathy(362.02) Proliferative diabetic retinopathy | + + | Vision, loss, sudden Sudden visual loss | + + | Unspecified retinal detachment | + + documented in this encounter"
--- OUTSIDE RECORDS SUMMARY | ~2019-10-28 | XMS | Encounter Summary ---
Demographics + + + | Address | [address] | | | [place] [address] | + + + | Home Phone | | + + + | Preferred Language | Unknown | + + + | Marital Status | Single | + + + | Scientology Affiliation | CHR | + + + | Race | White | + + + | Ethnic Group | Not or | + + + Author + + + | Author | [facility] | + + + | Organization | [facility] | + + + | Address | Unknown | + + + | Phone | Unavailable | + + + Support + + + + + | Name | Relationship | Address | Phone | + + + + + | Krissy Rogers | BRADEN | [place] [address] | | + + + + + | Bay Rogers | ECON | Unknown | | + + + + + Care Team Providers + +------+ + | Care Cotton Stripper Name | Role | Phone | + +------+ + | Berna Keyes MD | PCP | | + +------+ + Encounter Details +--------+ + + + + | Date | Type | Department | Care Team | Description | +--------+ + + + + | 09/16/ | [employer] | [facility] | Myron Mohan, | | | 2008 | | [facility] at | [address] | | | | | [address] | [place], [place] | | | | | [address] | [address] | | | | | Eye [place], [facility] | | | | | | [place], [place] | | | | | | [address] | | | +--------+ + + + [...] [address] | | | | | | [place] | | | | | | [address] | | | | | | [phone] | | | | | | | | +--------+---------+ + + + documented as of this encounter Visit Diagnoses Not on filedocumented in this encounter"
--- OUTSIDE RECORDS SUMMARY | ~2019-10-28 | XMS | Encounter Summary ---
Demographics + + + | Address | [address] | | | [place] [address] | + + + | Home Phone | | + + + | Preferred Language | Unknown | + + + | Marital Status | Single | + + + | Quaker Affiliation | CHR | + + + | Race | White | + + + | Ethnic Group | Not or | + + + Author + + + | Author | [facility] | + + + | Organization | [facility] | + + + | Address | Unknown | + + + | Phone | Unavailable | + + + Support + + + + + | Name | Relationship | Address | Phone | + + + + + | Krissy Rogers | BRADEN | [place] [address] | | + + + + + | Bay Rogers | ECON | Unknown | | + + + + + Care Team Providers + +------+ + | Care Business [employer] Dean Name | Role | Phone | + [address] | | | | | | [place], [place] | [place], [place] | | | | | | [address] | [address] | | | | | | Phone: | Phone: | | | | | | [phone] | [phone] | | | | | | Fax: | Fax: | | | | | | [phone] | [phone] | +--------+--------+ + + + + Encounter Details +--------+---------+ + + + | Date | Type | Department | Care Team | Description | +--------+---------+ + + + | 09/15/ | Office | [facility] | Maria Elena Lieberman, | Proliferative | | 2008 | Visit | [facility] at | [address] | Diabetic Retinopathy | | | | [facility] [address] | ([facility]) (Primary Dx); | | | | [address] | [place], [place] | Vision, Loss, | | | | Eye [place] | [address] | Sudden; DM Eye Manif | | | | floor [place], [place] | [phone] | Type II, | | | | [address] | | Uncontrolled ([facility]); | | | | | | Unspecified [...] was obtained in the ri ght eye. Pax-ej-[id number] time was within normal limits. The early [...] of dialysis will need to arrange in [place] so he can have dialysis within 24 [...] [address] | | | | | | [place], [place] | | | | | | [address] | | | | | | [phone] | | | | | | | | +--------+---------+ + + + + + +--------+ + + | Name | Type | Priori | Associated Diagnoses | Order Schedule | | | | ty | | | + + +--------+ + + | [place] FLUORESCEIN | Procedures | Routin | Proliferative [...] | + + +--------+ + + | [place] OPTHALMIC DX | Procedures | Routin | [...] | + + +--------+ + + | [place] FUNDAL | Procedures | Routin | Proliferative | Ordered: 09/18/2008 | | PHOTOGRAPHY | | e | Diabetic Retinopathy | | | | | | ([facility]) Vision, | | | | | | Loss, Sudden DM Eye | | | | | | Manif Type II, | | | | | | Uncontrolled ([facility]) | | | | | | Unspecified [...] mellitus with ophthalmic manifestations, | | uncontrolled(250.52) ([facility]) Type II or unspecified type diabetes mellitus with | | ophthalmic manifestations, uncontrolled | + + | Unspecified retinal detachment | + + documented in this encounter"
--- OUTSIDE RECORDS SUMMARY | ~2019-10-28 | XMS | Encounter Summary ---
Demographics + + + | Address | [address] | | | [place] [address] | + + + | Home Phone | | + + + | Preferred Language | Unknown | + + + | Marital Status | Single | + + + | Adventism Affiliation | CHR | + + + | Race | White | + + + | Ethnic Group | Not or | + + + Author + + + | Author | [facility] | + + + | Organization | [facility] | + + + | Address | Unknown | + + + | Phone | Unavailable | + + + Support + + + + + | Name | Relationship | Address | Phone | + + + + + | Krissy Rogers | BRADEN | [place] [address] | | + + + + + | Bay Rogers | ECON | Unknown | | + + + + + Care Team Providers + +------+ + | Care Medical Certification Specialist Name | Role | Phone | + +------+ + | Berna Keyes MD | PCP | | + +------+ + Encounter Details +--------+ + + + + | Date | Type | Department | Care Team | Description | +--------+ + + + + | 09/16/ | Purchasing Manager | [facility] | Myron Mohan, | | | 2008 | | [facility] at | [address] | | | | | [address] | [place], [place] | | | | | [address] | [address] | | | | | Eye [facility], [facility] | | | | | | [place], [place] | | | | | | [address] | | | +--------+ + + + [...] [address] | | | | | | [place] | | | | | | [address] | | | | | | [phone] | | | | | | | | +--------+---------+ + + + documented as of this encounter Visit Diagnoses Not on filedocumented in this encounter"
--- OUTSIDE RECORDS SUMMARY | ~2019-10-28 | XMS | Encounter Summary ---
Demographics + + + | Address | [address] | | | [place] [address] | + + + | Home Phone | | + + + | Preferred Language | Unknown | + + + | Marital Status | | + + + | Pentecostal Affiliation | 1013 | + + + | Race | Unknown | + + + | Ethnic Group | Unknown | + + + Author + + + | Author | [facility] | | | and [place] | + + + | Organization | [facility] | | | [...] [place] | | | | | [address] | | + + + + + | Ellen Greer | ECON | [address] | | | | | [place] | | + + + + + | Gisell Greer | ECON | Unknown | | + + + + + Care Team Providers + +------+ + | Care Char Filter Operator Helper Name | Role | Phone | + +------+ + PCP | Unavailable | + +------+ + Encounter Details +--------+ + + + + | Date | Type | Department | Care Team | Description | +--------+ + + + + | 05/11/ | Hospital | [facility] | Jaren Pelayo MD | Carotid art occ w/o | | 2010 | Encounter | MEDICAL [facility]ERSTRAND | [address] [facility] | infarc | | | | CLINICAL DECISION | [address] [place], [place] | | | | | [address] [place] [address] | [id number] | | | | | [place], [place] | | | | | | [address] | | | | | | [phone] | | | +--------+ + + + [...] as directed for | | 0 | / | | | test (KETOSTIX) | BG [...] 2020 | Visit | | [address] [facility] | | | | | | [address] [place] | | | | | | [address] | | | | | | | | +--------+---------+ + + + documented as of this encounter Procedures + +--------+ + + + | Procedure Name | Priori | Date/Time | Associated Diagnosis | Comments | | | ty | | | | + +--------+ + + + | IR INJECTION | Routin | 05/11/2010 | | Results for this | | DIALYSIS CIRCUIT W | e | 3:49 PM | | procedure are in the | | ANGIOPLASTY | | PST | | results section. | + +--------+ + + + | IR INJECTION | Routin | 05/11/2010 | | Results for this | | DIALYSIS CIRCUIT | e | 3:49 PM | | procedure are in the | | | | PST | | results section. | + +--------+ + + + documented in this encounter Results IR Inj Dialysis Circuit w Angioplasty (05/11/2010 3:49 PM PST) + + | Specimen | + + | | + + + + + | Narrative | Performed At | + + + | [facility] [address] Ph: | | | Patient Name: ANI GREERDE Fatuma Date of : | | | 1970 Medical Record: [id number] Account: [id number] | | | Exam Date/Time: 05/11/2010 15:55 Ordering | | | Physician: JAREN PELAYO Order Detail: [id number] Exam Description: IR | | | VENOUS FISTULA/GRAFT MORTGAGE ADVISOR | | | WILSON | | | W ZOEY AV FISTULAGRAM ACCESS 05/11/2010 2:30 PM HISTORY: 39 | | | years. Male. With chronic kidney disease stage V presents with | | | decreasing KT over V. EXAMINATION Right brachia cephalic | | | fistulogram and angioplasty of the focal, stenosis in right distal | | | cephalic vein using 8 mm x 4 cm balloon catheter. MEDICATIONS: | | | Isovue-200 33 cc, Heparin 4500 units intravenous, Versed 2 mg | | | intravenous, fentanyl 75-mcg intravenous. Intra-procedure sedation | | | time 8 minutes. The radiation dose 24 mGray, Fluoroscopy time 1.4 | | | minutes. Appropriate physiologic monitoring, maintenance of | | | adequate conscious sedation and independent fci | | | supervision performed throughout the procedure. PROCEDURE: | | | Informed written consent obtained from the patient after explaining | | | the procedure, risks and alternatives. Patient understood the | | | discussion and expressed a wish to proceed. Patient was placed | | | supine on the x-ray table. The right cubital fossa prepped in the | | | usual sterile fashion. Right arm AV fistula was accessed using | | | micropuncture needle and exchanged for 4-Samoan micropuncture sheath. | | | Initial fistula pressure was obtained and fistulogram obtained from | | | the right cubital fossa to the right atrium. Focal, 3-cm long, | | | preocclusive stenosis involving distal right cephalic vein was noted, | | | I decided to perform angioplasty of the venous lesions. 4-Samoan | | | micropuncture sheath was exchanged for 6-Samoan short sheath over a | | | 0.035, angled Glidewire. 8 mm x 4 cm balloon catheter was | | | advanced over the 0.035, angled Glidewire. Balloon was positioned | | | across stenosis in distal right cephalic vein and angioplasty was | | | performed. During inflation of the balloon across the venous | | | anastomosis Reflux evaluation of the arteriovenous anastomosis | | | obtained. Subsequently, balloon was deflated and a final fistulogram | | | obtained from the right cubital fossa to the right atrium. Final | | | fistula pressure and arterial pressures were obtained. All | | | catheters and wires then removed and hemostasis obtained with manual | | | pressure. No immediate procedural complications. Patient | | | tolerated the procedure well. FINDINGS 1. Initial fistula | | | pressure 91/51 mm Hg, arterial pressure 187/101 mm Hg, final | | | fistula pressure 50/33 mm Hg. 2. Right brachia cephalic fissure | | | gram shows focal, preocclusive stenosis involving distal right | | | cephalic vein. Rest of the draining veins, right subclavian vein, | | | right brachia cephalic vein and superior vena cava are widely patent. | | | 3. Successful angioplasty of the focal, pre-it was a stenosis | | | involving distal right cephalic vein using 8-mm by 4 cm balloon | | | catheter with no residual anatomic stenosis. IMPRESSION: 1. | | | Successful right brachia cephalic fistulogram and angioplasty the | | | preocclusive stenosis involving distal right cephalic vein with the | | | good hemodynamic results and no residual anatomic stenosis. | | | | | + + + + + | Procedure Note | + + | Billy Butler - 12/14/2018 4:25 PM PDT | | [facility] | | [facility] [address] | | | | | | Patient Name: WILSON GREER | | Date of : 1970 | | Medical Record: [id number] | | Account: [id number] | | | | | | Exam Date/Time: 05/11/2010 15:55 | | Ordering Physician: JAREN PELAYO | | Order Detail: [id number] | | Exam Description: IR VENOUS FISTULA/GRAFT MORTGAGE ADVISOR | | | | WILSON GREER | | AV FISTULAGRAM ACCESS | | 05/11/2010 2:30 PM | | | | HISTORY: | | 39 years. Male. With chronic kidney disease stage V presents with | | decreasing KT over V. | | | | EXAMINATION | | | | Right brachia cephalic fistulogram and angioplasty of the focal, stenosis | | in right distal cephalic vein using 8 mm x 4 cm balloon catheter. | | | | MEDICATIONS: | | | | | | Isovue-200 33 cc, Heparin 4500 units intravenous, Versed 2 mg intravenous, | | fentanyl 75-mcg intravenous. Intra-procedure sedation time 8 minutes. The | | radiation dose 24 mGray, Fluoroscopy time 1.4 minutes. Appropriate | | physiologic monitoring, maintenance of adequate conscious sedation and | | independent fci supervision performed throughout the procedure. | | | | PROCEDURE: | | | | Informed written consent obtained from the patient after explaining the | | procedure, risks and alternatives. Patient understood the discussion and | | expressed a wish to proceed. | | Patient was placed supine on the x-ray table. The right cubital fossa | | prepped in the usual sterile fashion. Right arm AV fistula was accessed | | using micropuncture needle and exchanged for 4-Samoan micropuncture sheath. | | Initial fistula pressure was obtained and fistulogram obtained from the | | right cubital fossa to the right atrium. Focal, 3-cm long, preocclusive | | stenosis involving distal right cephalic vein was noted, I decided to | | perform angioplasty of the venous lesions. 4-Samoan micropuncture sheath | | was exchanged for 6-Samoan short sheath over a 0.035, angled Glidewire. 8 | | mm x 4 cm balloon catheter was advanced over the 0.035, angled Glidewire. | | Balloon was positioned across stenosis in distal right cephalic vein and | | angioplasty was performed. During inflation of the balloon across the | | venous anastomosis Reflux evaluation of the arteriovenous anastomosis | | obtained. Subsequently, balloon was deflated and a final fistulogram | | obtained from the right cubital fossa to the right atrium. Final fistula | | pressure and arterial pressures were obtained. All catheters and wires | | then removed and hemostasis obtained with manual pressure. | | | | No immediate procedural complications. Patient tolerated the procedure | | well. | | | | FINDINGS | | 1. Initial fistula pressure 91/51 mm Hg, arterial pressure 187/101 mm | | Hg, final fistula pressure 50/33 mm Hg. | | 2. Right brachia cephalic fissure gram shows focal, preocclusive | | stenosis involving distal right cephalic vein. Rest of the draining veins, | | right subclavian vein, right brachia cephalic vein and superior vena cava | | are widely patent. | | 3. Successful angioplasty of the focal, pre-it was a stenosis involving | | distal right cephalic vein using 8-mm by 4 cm balloon catheter with no | | residual anatomic stenosis. | | | | IMPRESSION: | | 1. Successful right brachia cephalic fistulogram and angioplasty the | | preocclusive stenosis involving distal right cephalic vein with the good | | hemodynamic results and no residual anatomic stenosis. | | | | | + + IR Inj Dialysis Circuit (05/11/2010 3:49 PM PST) + + | Specimen | + + | | + + + + + | Narrative | Performed At | + + + | [facility] [address] Ph: | | | Patient Name: ZOEY WILSON Burris Date of : | | | 1970 Medical Record: [id number] Account: [id number] | | | Exam Date/Time: 05/11/2010 14:30 Ordering | | | Physician: JAREN PELAYO Order Detail: [id number] Exam Description: AV | | | FISTULAGRAM ACCESS | | | WISLON | | | W ZOEY AV FISTULAGRAM ACCESS 05/11/2010 2:30 PM HISTORY: 39 | | | years. Male. With chronic kidney disease stage V presents with | | | decreasing KT over V. EXAMINATION Right brachia cephalic | | | fistulogram and angioplasty of the focal, stenosis in right distal | | | cephalic vein using 8 mm x 4 cm balloon catheter. MEDICATIONS: | | | Isovue-200 33 cc, Heparin 4500 units intravenous, Versed 2 mg | | | intravenous, fentanyl 75-mcg intravenous. Intra-procedure sedation | | | time 8 minutes. The radiation dose 24 mGray, Fluoroscopy time 1.4 | | | minutes. Appropriate physiologic monitoring, maintenance of | | | adequate conscious sedation and independent fci | | | supervision performed throughout the procedure. PROCEDURE: | | | Informed written consent obtained from the patient after explaining | | | the procedure, risks and alternatives. Patient understood the | | | discussion and expressed a wish to proceed. Patient was placed | | | supine on the x-ray table. The right cubital fossa prepped in the | | | usual sterile fashion. Right arm AV fistula was accessed using | | | micropuncture needle and exchanged for 4-Samoan micropuncture sheath. | | | Initial fistula pressure was obtained and fistulogram obtained from | | | the right cubital fossa to the right atrium. Focal, 3-cm long, | | | preocclusive stenosis involving distal right cephalic vein was noted, | | | I decided to perform angioplasty of the venous lesions. 4-Samoan | | | micropuncture sheath was exchanged for 6-Samoan short sheath over a | | | 0.035, angled Glidewire. 8 mm x 4 cm balloon catheter was | | | advanced over the 0.035, angled Glidewire. Balloon was positioned | | | across stenosis in distal right cephalic vein and angioplasty was | | | performed. During inflation of the balloon across the venous | | | anastomosis Reflux evaluation of the arteriovenous anastomosis | | | obtained. Subsequently, balloon was deflated and a final fistulogram | | | obtained from the right cubital fossa to the right atrium. Final | | | fistula pressure and arterial pressures were obtained. All | | | catheters and wires then removed and hemostasis obtained with manual | | | pressure. No immediate procedural complications. Patient | | | tolerated the procedure well. FINDINGS 1. Initial fistula | | | pressure 91/51 mm Hg, arterial pressure 187/101 mm Hg, final | | | fistula pressure 50/33 mm Hg. 2. Right brachia cephalic fissure | | | gram shows focal, preocclusive stenosis involving distal right | | | cephalic vein. Rest of the draining veins, right subclavian vein, | | | right brachia cephalic vein and superior vena cava are widely patent. | | | 3. Successful angioplasty of the focal, pre-it was a stenosis | | | involving distal right cephalic vein using 8-mm by 4 cm balloon | | | catheter with no residual anatomic stenosis. IMPRESSION: 1. | | | Successful right brachia cephalic fistulogram and angioplasty the | | | preocclusive stenosis involving distal right cephalic vein with the | | | good hemodynamic results and no residual anatomic stenosis. | | | | | + + + + + | Procedure Note | + + | Billy Butler - 12/14/2018 4:25 PM PDT | | [facility] | | [facility] [address] | | | | | | Patient Name: WILSON GREER | | Date of : 1970 | | Medical Record: [id number] | | Account: [id number] | | | | | | Exam Date/Time: 05/11/2010 14:30 | | Ordering Physician: JAREN PELAYO | | Order Detail: [id number] | | Exam Description: AV FISTULAGRAM ACCESS | | | | WILSON GREER | | AV FISTULAGRAM ACCESS | | 05/11/2010 2:30 PM | | | | HISTORY: | | 39 years. Male. With chronic kidney disease stage V presents with | | decreasing KT over V. | | | | EXAMINATION | | | | Right brachia cephalic fistulogram and angioplasty of the focal, stenosis | | in right distal cephalic vein using 8 mm x 4 cm balloon catheter. | | | | MEDICATIONS: | | | | | | Isovue-200 33 cc, Heparin 4500 units intravenous, Versed 2 mg intravenous, | | fentanyl 75-mcg intravenous. Intra-procedure sedation time 8 minutes. The | | radiation dose 24 mGray, Fluoroscopy time 1.4 minutes. Appropriate | | physiologic monitoring, maintenance of adequate conscious sedation and | | independent fci supervision performed throughout the procedure. | | | | PROCEDURE: | | | | Informed written consent obtained from the patient after explaining the | | procedure, risks and alternatives. Patient understood the discussion and | | expressed a wish to proceed. | | Patient was placed supine on the x-ray table. The right cubital fossa | | prepped in the usual sterile fashion. Right arm AV fistula was accessed | | using micropuncture needle and exchanged for 4-Samoan micropuncture sheath. | | Initial fistula pressure was obtained and fistulogram obtained from the | | right cubital fossa to the right atrium. Focal, 3-cm long, preocclusive | | stenosis involving distal right cephalic vein was noted, I decided to | | perform angioplasty of the venous lesions. 4-Samoan micropuncture sheath | | was exchanged for 6-Samoan short sheath over a 0.035, angled Glidewire. 8 | | mm x 4 cm balloon catheter was advanced over the 0.035, angled Glidewire. | | Balloon was positioned across stenosis in distal right cephalic vein and | | angioplasty was performed. During inflation of the balloon across the | | venous anastomosis Reflux evaluation of the arteriovenous anastomosis | | obtained. Subsequently, balloon was deflated and a final fistulogram | | obtained from the right cubital fossa to the right atrium. Final fistula | | pressure and arterial pressures were obtained. All catheters and wires | | then removed and hemostasis obtained with manual pressure. | | | | No immediate procedural complications. Patient tolerated the procedure | | well. | | | | FINDINGS | | 1. Initial fistula pressure 91/51 mm Hg, arterial pressure 187/101 mm | | Hg, final fistula pressure 50/33 mm Hg. | | 2. Right brachia cephalic fissure gram shows focal, preocclusive | | stenosis involving distal right cephalic vein. Rest of the draining veins, | | right subclavian vein, right brachia cephalic vein and superior vena cava | | are widely patent. | | 3. Successful angioplasty of the focal, pre-it was a stenosis involving | | distal right cephalic vein using 8-mm by 4 cm balloon catheter with no | | residual anatomic stenosis. | | | | IMPRESSION: | | 1. Successful right brachia cephalic fistulogram and angioplasty the | | preocclusive stenosis involving distal right cephalic vein with the good | | hemodynamic results and no residual anatomic stenosis. | | | | | + + documented in this encounter Visit Diagnoses + + | Diagnosis | + + | Occlusion and stenosis of carotid artery without mention of cerebral infarction | + + documented in this encounter"
--- OUTSIDE RECORDS SUMMARY | ~2019-10-28 | XMS | Encounter Summary ---
Demographics + + + | Address | [address] | | | [place] [address] | + + + | Home Phone [...] Author + + + | Author | [facility] | + + + | Organization | [facility] | + + + | Address | Unknown | + + + | Phone | Unavailable | + + + Support + + + + + | Name | Relationship | Address | Phone | + + + + + | Krissy Rogers | BRADEN | [place] [address] | | + + + + + | Bay Rogers | ECON | Unknown | | + + + + + Care Team Providers + +------+ + | Care Supervisor Contingents Name | Role | Phone | + +------+ + | Bola Chaudhry MD | PCP | | + +------+ + Encounter Details +--------+ + + + + | Date | Type | Department | Care Team | Description | +--------+ + + + + | 05/28/ | Ancillary | LAB IMMUNOGENETIC | | | | 2012 | Orders | [facility] | | | | | | [address] | | | | | | [place], | | | | | | [place] [address] | | | +--------+ + + + [...] | | 2019 | Visit | | [address] | | | | | | [address]rizia [address] | | | | | | [place], [place] | | | | | | [address] | | | | | | [phone] | | | | | | | | +--------+---------+ + + + documented as of this encounter Procedures + +--------+ + + + | Procedure Name | Priori | Date/Time | Associated Diagnosis | Comments | | | ty | | | | + +--------+ + + + | LIT FLOW HLA AB | Routin | 05/28/2012 | | | | QUICK SCREEN I/II | e | 12:03 PM | | | | | | PST | | | + +--------+ + + + documented in this encounter Results LIT FLOW HLA AB QUICK SCREEN I/II (05/28/2012 12:03 PM PST) + + | Specimen | + + | Blood - Blood | + + + + + + + | Performing | Address | City/State/Zipcode | Phone Number | | Organization | | | | + + + + + | [facility] - | [address] | [place] [address] | | | IMMUNOGENETICS/TRANS | [address] | | | | [facility] | | | | + + + + + documented in this encounter Visit Diagnoses Not on filedocumented in this encounter"
--- OUTSIDE RECORDS SUMMARY | ~2019-10-28 | XMS | Encounter Summary ---
Demographics + + + | Address | [address] | | | [place] [address] | + + + | Home Phone | | + + + | Preferred Language | Unknown | + + + | Marital Status | Single | + + + | Rastafarian Affiliation | CHR | + + + | Race | White | + + + | Ethnic Group | Not or | + + + Author + + + | Author | [facility] | + + + | Organization | [facility] | + + + | Address | Unknown | + + + | Phone | Unavailable | + + + Support + + + + + | Name | Relationship | Address | Phone | + + + + + | Krissy Rogers | BRADEN | [place] [address] | | + + + + + | Bay Rogers | ECON | Unknown | | + + + + + Care Team Providers + +------+ + | Care Brick Burner Head Name | Role | Phone | + +------+ + | Jono Arambula | PCP | | + +------+ + Reason for Visit + + + | Reason | Comments | + + + | Eye examination | | + + + Encounter Details +--------+---------+ + + + | Date | Type | Department | Care Team | Description | +--------+---------+ + + + | 12/01/ | Office | [facility] | | Proliferative | | 2009 | Visit | [place] | | Diabetic Retinopathy | | | | Photography at | | ([facility]) (Primary Dx) | | | | [facility] [address] | | | [address] | | | | | | Eye [place], [address] | | | | | | floor [place], [place] | | | | | | [address] | | | +--------+---------+ + + + [...] + documented as of this encounter Progress Chris [place] - 12/01/2008 5:15 PM LYUDMILAWilson Rogers was seen in the [facility] [place] P hotography/Ultrasound Department today, 12/01/2008, for biometry ou. Prior vit. Ou. No cl wear. od [place] used for os. ps documented in this encou nter Plan of Treatment +--------+---------+ + + + | Date | Type | Specialty | Care Team | Description | +--------+---------+ + + + | 01/26/ | Office | Ophthalmology | Maria Elena Lieberman, | | | 2020 | Visit | | [address] | | | | | | [place]rizia [place]zano | | | | | | [place], [place] | | | | | | [address] | | | | | | [phone] | | | | | | | | +--------+---------+ + + + documented as of this encounter Visit Diagnoses + + | Diagnosis | + + | Proliferative diabetic retinopathy(362.02) - Primary Proliferative diabetic | | retinopathy | + + documented in this encounter"
--- OUTSIDE RECORDS SUMMARY | ~2019-10-28 | XMS | Encounter Summary ---
Demographics + + + | Address | [address] | | | [place] [address] | + + + | Home Phone [...] Krissy Rogers | BRADEN | [place] [address] | | + + + + + | Bay Rogers | ECON | Unknown | | + + + + + Care Team Providers + +------+ + | Care Public Housing Interviewer Name | Role | Phone | [...] Description | +--------+---------+ + + + | 09/17/ | Office | [facility] | Maria Elena Lieberman, | Proliferative | | 2009 | Visit | [facility] at | [address] | Diabetic Retinopathy | | | | [address] | [address] | ([facility]); Unspecified | | | [address] | [place], [place] | Retinal Detachment; | | | | [facility] [place], [facility] | [address] | DM Eye Manif Type | | | | floor [place], [place] | [phone] | II, Uncontrolled | | | | [address] | | ([facility]) | +--------+---------+ + + + Social [...] Progress Notes Maria Elena Lieberman MD - 09/17/2008 8:30 AM PDTFormatting of this note might be different f rom the original. Retina Division Progress Note: Post OP Note CC: Postop visit HPI: Wilson Rogers is a 38 y.o. male status post PPV,MP,EL SO OS on 09/16/2008. The pain level was 6 out of 10. Nauseated and vomited this am. Pain meds made him sick. Referring Provid er: Dr. 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 Allergies: Penicillins and Lisinopril Meds: PF 4x, Ofloxacin 4x, Atropine 2x All gtts instilled by Ro Headley Cot Examination: 09/17/2008 Va sc Va cc PH IOP 8:22 AM Left Eye LP NT ni 17 SLE OS Lids Appropriate edema Conjunctiva Well closed Cornea Clear AC Oil in AC (~60% fill) 3 bubbles Iris dilated Lens 1+ NSC, 1+ PSC Ophthalmoscopy of the left eye disclosed retina that is flat all over. There is good laser to the retinal breaks. Retinectomy edges are flat. There is minimal pre-retinal heme over the optic nerve. Good oil fill. IMPRESSION: Post op status post PPV/MP/retinectomy/oil OS on 09/16/2008 - good IOP some oil in ac PLAN: Ofloxacin OS qid Atropine 1% OS bid Prednisolone OS qid Phenergan 25mg IM x 1 given in clinic No lifting, bending or straining x 2 weeks. Shield at night time x 1 week. Pain medicines as needed. Continue Reglan as scheduled Relevant information regarding altitude, nitrous oxide as it relates to intraocular gas dis cussed. Call immediately for increased pain, decreased vision. 24 hour contact information given. Positioning: face down or right side down at night only Return to clinic in 1 week. MRI today in [place] Myron Meehan MD, Fellow, Retina Service, [facility], 09/17/2008 Maria Elena Lieberman MD I am familiar [...] [address] | | | | | | [place], [place] | | | | | | [address] | | | | | | [phone] | | | | | | | | +--------+---------+ + + + documented as of this encounter Visit Diagnoses + + | Diagnosis | + + | Proliferative diabetic retinopathy(362.02) Proliferative diabetic retinopathy | + + | Unspecified retinal detachment | + + | Type II or unspecified type diabetes mellitus with ophthalmic manifestations, | | uncontrolled(250.52) ([facility]) Type II or unspecified type diabetes mellitus with | | ophthalmic manifestations, uncontrolled | + + documented in this encounter"
--- OUTSIDE RECORDS SUMMARY | ~2019-10-28 | XMS | Encounter Summary ---
Demographics + + + | Address | [address] | | | [place] [address] | + + + | Home Phone | | + + + | Preferred Language | Unknown | + + + | Marital Status | | + + + | Sabianist Affiliation | 1013 | + + + | Race | Unknown | + + + | Ethnic Group | Unknown | + + + Author + + + | Author | [facility] | | | and [place] | + + + | Organization | [facility] | | | and [...] [address] | | | | | [address] | | + + + + + | Ellen Rogers | ECON | [address] | | | | | [place] | | + + + + + | Gisell Rogers | ECON | Unknown | | + + + + + Care Team Providers + +------+ + | Care Insurance Agency Manager Name | Role | Phone | + +------+ + | Lizbet Sellers MD | PCP | | + +------+ + Encounter Details +--------+ + + + + | Date | Type | Department | Care Team | Description | +--------+ + + + + | 04/05/ | Orders Only | [facility] | Conversion | | | 2015 | | NEPHROLOGY [place] | Transaction, | | | | | [address] [facility] | Provider Unknown | | | | | [address] [place], [place] | | | | | | [address] | (Fax) | | | | | [phone] | | | +--------+ + + + [...] [place] | | | | | | [address] | | | | | | | | +--------+---------+ + + + documented as of this encounter Procedures + +--------+ + + + | Procedure Name | Priori | Date/Time | Associated Diagnosis | Comments | | | ty | | | | + +--------+ + + + | LIPID PANEL | Routin | 04/05/2016 | | Results for this | | | e | 10:30 AM | | procedure are in the | | | | PST | | results section. | + +--------+ + + + | T4, FREE | Routin | 04/05/2016 | | Results for this | | | e | 10:30 AM | | procedure are in the | | | | PST | | results section. | + +--------+ + + + documented in this encounter Results T4, Free (04/05/2016 10:30 AM PST) + + + + + + | Component | Value | Ref Range | Performed | Pathologist | | | | | At | Signature | + + + + + + | FREE T4 | 1.92 (A) | 0.71 - 1.7 | EXTERNAL | | | (REF) | | | LAB | | + [...] | + +---------+ + + Lipid Panel (04/05/2016 10:30 AM PST) + +-------+ + + + | Component | Value | Ref Range | Performed | Pathologist | | | | | At | Signature | + +-------+ + + + | Cholesterol | 145 | mg/dL | EXTERNAL | | | | | | LAB | | + +-------+ + + + | Triglycerid | 74 | 30 - 150 mg/dL | EXTERNAL | | | es | | | LAB | | + +-------+ + + + | HDL | 41.0 | mg/dl | EXTERNAL | | | | | | LAB | | + +-------+ + + + | LDL, | 89 | mg/dL | EXTERNAL | | | [...] +-------+ + + + | VLDL | 15 | 4 - 40 mg/dL | EXTERNAL | | | | | | LAB | | + +-------+ + + + | Non HDL | 104 | | EXTERNAL | | | Chol. [...]
--- OUTSIDE RECORDS SUMMARY | ~2019-10-28 | XMS | Encounter Summary ---
Demographics + + + | Address | [address] | | | [place] [address] | + + + | Home Phone | | + + + | Preferred Language | Unknown | + + + | Marital Status | Single | + + + | Jain Affiliation | CHR | + + + [...] Krissy Rogers | BRADEN | [place] [address] | | + + + + + | Bay Rogers | ECON | Unknown | | + + + + + Care Team Providers + +------+ + | Care Diamond Powder Technician Name | Role | Phone | + +------+ + | Jono Arambula | PCP | | + +------+ + Reason for Visit + + + | Reason | Comments | + + + | Referred by doctor | Dr. Alfonso Akers in [place] | + + + Encounter Details +--------+---------+ + + + | Date | Type | Department | Care Team | Description | +--------+---------+ + + + | 10/13/ | Office | [facility] | Lizett Mcadams, OD | One eye-mod/oth-near | | 2009 | Visit | [place] [facility] | [address] | tot (Primary Dx); | | | | [address] | [address] [place], [place] | PDR (proliferative | | | | Mailcode: CH11P | [id number] | diabetic | | | | [place] [facility] | | retinopathy) (HCC); | | | | and Healing, | | Myopia; Regular | | | | | | astigmatism | | | | Floor [place], [place] | | | | | | [address] | | | | | | [phone] | | | +--------+---------+ + + + [...] documented as of this encounter Progress Notes Mcadams Lizett YIN - 10/13/2009 9:10 AM PDT LOW VISION EVALUATION Start time: 8:10 am Type of visit: initial evaluation HPI: Wilson Rogers ([id number]) is a 39 y.o. year old white male from [place] with h/o PDR 2 ^ Type I Diabetes. Description of patient: alert, mobile, slow & cautious gait, wearing baseball cap Accompanied by: Livia (pt's caregiver) Scheduling notes: -consult, Dr. Alfonso Akesr, [facility] Pt. arriving evening before,requested record s.rm Primary Care Provider: CARMENCITA Torres Allergies: is allergic to penicillins and lisinopril. Referred by: Alfonso Akers MD Other eye doctors: Dr. Lieberman Comments: Pt seen by Dr. Lieberman in the past. Is currently being followed by Dr. Akers. Spec. 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 Chief complaint: Pt referred by Dr. Alfonso Akers. Seen PCP & Endocrinology last month, is currently on ne w insulin. (-)[facility] Diabetes "I want to be able to see better. 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, 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) Hobbies: reading, watching tv Visual Acuity: CC SC PH (SC/CC) Near cc Near sc Right eye 2.5/600, FB () , Unable to appreciate card Left eye PG10/200, FB; 20/400, Snellen , 5M@12in, game Current Glasses: NONE Current glasses sphere cylinder axis VA Right eye NONE Left eye NONE Previous Low Vision Devices, and acuity: Acuity Device Didn't bring Tried various magnifiers for ADLs, but none work anymore Ancillary Tests: Contrast Sensitivity Testing Chart Used [place] without glasses OD Reports unable to appreciate card OS 0.40 (profound loss) OU 0.40 (profound loss) Confrontation Visual Vickers (see ophthalmology module) OD OS Notes hand motion, Severe restriction in all quad Moderate restriction in all quad, CF ST q uad and HM in all other quad EOM: full range of motion, (-)restriction Refractive Evaluation: Refractions sphere cylinder axis VA Right eye MR Lori CORTEZ NI with +/- Dim reflex NI Left eye MR Lori CORTEZ -1.50 -1.00 -1.00 -1.25 x180 x180 10/80- (20/160-), FB; 20/400 with snellen 20/400,snellen Patient's Response to Subjective: significant improvement Trial Frame: SC vs subj OS, prefer subj Low Vision Device Assessment: Dominant Eye: OD Better Functional Eye: OS Type/Brand/Lumination/power Eye VA distance Chart used Comments 3x/12D LED HHM c subj OS 0.8M game Good WD, uses well, likes light 5x/20D LED HHM c subj OS 0.5M Game, CT Uses well, fluent c some mistakes, steady 6x vs 7x LED SM s vs c subj OS GAS APPLIANCE ADJUSTER, large print, med bottle CT & game (0.4 c 7x) Fluent bot h, struggle a little c 6x, better with 7x sRx, holds well, better c light CCTV Shelly Size 4 Uses well, fluent GAS APPLIANCE ADJUSTER, prfer c +1.00ds OS Demo tints (yellow, orange, shiela) Yellow best, but same s Additional Observations: Pt did well with handling HM and SM. Likes 5x and 7x brady, does better with 7x, still struggles with lower 5x. Prefer device for spotting i.e. HM. Tints do not help enhance contrast. Counseling Provided: Time Spent: 30 minutes (adaptation to blindness, life skills, coordination of care, explanation of RX options) Comments: -[facility] pt about condition and prognosis. Discussed referral to [facility] for RT, O&M, and Assistiv e Technology Training. Pt was able to ask questions and felt it would be a good resource. [facility] pt the [facility] will help find local counselor to work with pt and can provide other resource s he may be interested. -[facility] pt re impt of polycarbonate lenses for eye protection. Pt appreciated subj Rx. Sugge st to stick with SV lenses 2^ careful gait. Discussed with pt that O&M will help with prope r techniques for gait and mentioned poss need for white cane. -Edu pt about dec contrast, need for inc lighting to enhance reading and mobility. Pt repo rts glare is not debilitating and prefers not to have tint. Demo tints did not find filter s to be helpful; although preferred yellow. Will stick with wearing cap to reduce glare. Mood & Affect: appropriate Orientation: ox3 Time End: 9:10 am Assessment & Plan- Device Recommendation- Prescriptions: 1) Proliferative Diabetic Retinopathy OD>>OS BCVA OD 2.5/600 (), OS 10/80- (20/160-) Cont care with Dr. Osborne. F/U scheduled. Letter to Dr. Osborne. 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 Rec sv polycarbonate lenses mental health counselor wear for eye protection. Prefers no tint. No BF 2^ slow ga it. Final Rx: OD Balance, OS -1.50-1.23s677 3) Rec 7x/28D LED HHM for spot reading menu, cell phone, med bottle. Can mail device to pt. Used well today. 4) Rec 7x/28D LED SM (s Rx) or CCTV (c near Add Rx for comfort) for nursing home reading. 5) Refer to [place] [facility] for Rehabilitation Therapy, Orientation and Mob ility, and Assistive Technology Training. 6) RTC 4-5 months f/u progress or sooner if vision changes. Pt to call anytime if he has a ny questions. Consider VF in future if more difficulty c VF, gait, & response inc mag. LIZETT MCADAMS OD [facility] [address] Mailcode: Ch11p [facility], [address] [facility] [address] documented in this encount er Plan of Treatment +--------+---------+ + + + | Date | Type | Specialty | Care Team | Description | +--------+---------+ + + + | 01/26/ | Office | Ophthalmology | Maria Elena Lieberman, | | | 2019 | Visit | | [address] | | | | | [address] | | | | | | [place], [place] | | | | | | [address] | | | | | | [phone] | | | | | | | | +--------+---------+ + + + + + +--------+ + + | Name | Type | Priori | Associated Diagnoses | Order Schedule | | | | ty | | | + + +--------+ + + | NE REFRACTION | Procedures | Routin | Myopia Regular | Ordered: 10/14/2009 | | EXTENDED | | e | astigmatism | | + + +--------+ + + documented as of this encounter Visit Diagnoses + + | Diagnosis | + + | Better eye: moderate vision impairment; lesser eye: near-total vision impairment - | | Primary | + + | PDR (proliferative diabetic retinopathy) ([facility]) Type II or unspecified type diabetes | | mellitus with ophthalmic manifestations, not stated as uncontrolled | + + | Myopia | + + | Regular astigmatism | + + documented in this encounter
--- OUTSIDE RECORDS SUMMARY | ~2019-10-28 | XMS | Encounter Summary ---
Demographics + + + | Address | [address] | | | [place] [address] | + + + | Home Phone | | + + + | Preferred Language | Unknown | + + + | Marital Status | | + + + | Restorationism Affiliation | 1013 | + + + | Race | Unknown | + + + | Ethnic Group | Unknown | + + + Author + + + | Author | [facility] | | | and [place] | + + + | Organization | [facility] | | | and [place] | + + + | Address | Unknown | + + + | Phone | Unavailable | + + + Support + + + + + | Name | Relationship | Address | Phone | + + + + + | Deysi Montelongo | ECON | [address] | | | | | [place] | | | | | [address] | | + + + + + | Ellen Rogers | ECON | [address] | | | | | [place] | | + + + + + | Gisell Rogers | ECON | Unknown | | + + + + + Care Team Providers + +------+ + | Care Industrial Photographer Name | Role | Phone | + +------+ + | David Estrada MD | PCP | Unavailable | + +------+ + Reason for Visit +--------+--------+ + | Reason | Onset | Comments | | | Date | | +--------+--------+ + | Other | 08/23/ | Dr Cabrera | | | 2012 | | +--------+--------+ + Encounter Details +--------+ + + + + | Date | Type | Department | Care Team | Description | +--------+ + + + + | 08/23/ | Telephone | [facility] | [facility], | Other (Dr Cabrera) | | 2012 | | GASTROENTEROLOGY | NAWAF Egan [address] | | | | | [address] | [address] | | | | | [address] [place] | [place] | | | | | [address] | [address] | | | | | [phone] | | | +--------+ + + + [...] encounter Miscellaneous Notes Telephone Encounter - Radha Bejarano - 2012 2:12 PM PDTSpoke to April, patient' s caregiver. She said Wilson has an appointment with Shannanpatrizia on September 11, 2012. Patient wants to kn ow why he needs seen here if he is being scheduled with Dr Cabrera? Told him we could cancel t his appointment for now. Told them if they don't hear from Dr Cabrera's office to please call back. elephone Encounte r - Radha Bejarano - 08/26/2012 10:18 AM PDTLeft message for caregiver, Dr Cabrera does carlin ve notes on Wilson, still in review. Dr Cabrera's scheduling department will be calling Wilson to schedule once all records have been reviewed. Asked that she call back with any questions.El ectronically signed by Radha Bejarano at 08/26/2012 10:20 AM PDTTelephone Encounter - Wilfred fauziaRadha estevez - 08/26/2012 9:58 AM PDTSpoke to Wilson's caregiver, told her an authorizatio n has been done and records have been sent to Dr Cabrera. I will call Dr Cabrera's office and de e if they received patient information. Caregiver verbalized understanding.Electronically si gned by Radha Bejarano at 08/26/2012 9:59 AM PDTTelephone Encounter - Mercedes Jamison - 06/2012 4:25 PM PDTCare test hole driller left message to follow up on referral to [place] for someone who does stomach pumps. Please call her at [phone] or Wilson at [phone].Electronic ally signed by Mercedes Jamison at 08/23/2012 4:25 PM PDTdocumented in this encounter Plan of Treatment +--------+---------+ + + + | Date | Type | Specialty | Care Team | Description | +--------+---------+ + + + | 01/04/ | Office | Nephrology | Jaren Pelayo MD | | | 2020 | Visit | | [address] [facility] | | | | | | [address] [place] | | | | | | [address] | | | | | | | | +--------+---------+ + + + documented as of this encounter Visit Diagnoses Not on filedocumented in this encounter"
--- OUTSIDE RECORDS SUMMARY | ~2019-10-28 | XMS | Encounter Summary ---
Demographics + + + | Address | [address] | | | [place] [address] | + + + | Home Phone [...] Author + + + | Author | [facility] | + + + | Organization | [facility] | + + + | Address | Unknown | + + + | Phone | Unavailable | + + + Support + + + + + | Name | Relationship | Address | Phone | + + + + + | Krissy Rogers | BRADEN | [place] [address] | | + + + + + | Bay Rogers | ECON | Unknown | | + + + + + Care Team Providers + +------+ + | Care Deputy Sheriff Court Services Name | Role | Phone | + [...] | | | | | [address] | [place], [place] | | | | | | [place], [place] | [address] Phone: | | | | | | [address] | [phone] | | | | | | Phone: | Fax: | | | | | | [phone] | [phone] | | | | | | Fax: | | | | | | | [phone] | | +--------+--------+ + + + + Encounter Details +--------+---------+ + + + | Date | Type | Department | Care Team | Description | +--------+---------+ + + + | 05/18/ | Office | [facility] | David Zee, OD | Visual impairment in | | 2017 | Visit | [place] at [facility] | [address] | both eyes (Primary | | | | [address] | [place] [address] | Dx); Proliferative | | | | Mailcode: [facility] | [phone] | diabetic retinopathy | | | | [facility] | | without macular | | | | and Healing, | | edema associated | | | | Building | | with type 2 diabetes | | | | Floor [place], [place] | | mellitus ([facility]); H/O | | | | [address] | | RD (retinal | | | | [phone] | | detachment) | +--------+---------+ + + [...] different from joseluis angel. 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 S/p 09/2012 kidney transplant Continuing w the insulin pump PCP: Lizbet Jamison MD, [place] Aerial Crop Duster:Dorota Lepe MD, [place] Coremaker Supervisor: Jakub Pelayo MD, [place], [place] Gasoline Dragline Operator: Alonso Hitchcock MD 45 year old patient from [facility] [place] referred by Dr. Jose Lieberman [...] have multiple vision assistive devices from the [place] [employer] including vision alternative [...] for this visit. Habitual magnifiers/assistive devices: 1. Innovatus Technologyktop CCTV FROM ABOUT 2009 used daily including to see his credit card numbers when ordering. 2. Formerly used a TIM, now using a CANDY 5 palm top CCTV from the [employer]; USED for quick reference on his phone or printed standard font. Also uses the [employer] Sports Technologiese camera w zoom function like to read a wall menu. 3. Mobility cane; was trained by Thuan Simpson. 4. ZOOMTEXT 10.1 on his WINDOWS 7 5. DROID smartphone w voice over and magnifying camera function w GOOGLE VOICE or Eight Dimension CorporationIC E; plus wireless CLOUD PRINT 6. Auto-pay of common bills thru his bank 7. Audio books thru BARD used extensively 8. TV online 9. Treadmill 10. penpal scanner Trial with magnification or spectral filters as follows: 1. Discussion of OrCam digital video capture vision-replacement prosthetic device. This dev ice uses optical character recognition (OCR) qwej-tw-davnow hardware and software to [potent ially] allow independent access to printed text. Some versions can be programmed to recogniz e faces. Gave product & contact information and interet address for further education. 2. Discussion of [employer] and [employer]. It sounds like his DROID smartphone has [...] step. 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 Khadar. Zee, OD Vision Rehabilitation [facility] [place] documented in this encoun ter Plan of Treatment +--------+---------+ + + + | Date | Type | Specialty | Care Team | Description | +--------+---------+ + + + | 01/26/ | Office | Ophthalmology | Maria Elena Lieberman, | | | 2019 | Visit | | MD [address] | | | | | | [address] | | | | | | [place], [place] | | | | | | [address] | | | | | | [phone] | | | | | | | [...]
--- OUTSIDE RECORDS SUMMARY | ~2019-10-28 | XMS | Encounter Summary ---
Demographics + + + | Address | [address] | | | [place] [address] | + + + | Home Phone | | + + + | Preferred Language | Unknown | + + + | Marital Status | Single | + + + | Uatsdin Affiliation | CHR | + + + | Race | White | + + + | Ethnic Group | Not or | + + + Author + + + | Author | [facility] | + + + | Organization | [facility] | + + + | Address | Unknown | + + + | Phone | Unavailable | + + + Support + + + + + | Name | Relationship | Address | Phone | + + + + + | Krissy Rogers | BRADEN | [place] [address] | | + + + + + | Bay Rogers | ECON | Unknown | | + + + + + Care Team Providers + +------+ + | Care Lacquer Sizer Name | Role | Phone | + +------+ + | Bola Chaudhry MD | PCP | | + +------+ + Encounter Details +--------+ + + + + | Date | Type | Department | Care Team | Description | +--------+ + + + + | 08/25/ | Document-Sc | UNKNOWN DEPARTMENT | Other, Faculty | | | 2008 | anned | [address] | [phone] | | | | | [address] | | | | | | [place], [place] | | | | | | [address] | | | +--------+ + + + [...] [address] | | | | | | [place], [place] | | | | | | [address] | | | | | | [phone] | | | | | | | | +--------+---------+ + + + documented as of this encounter Visit Diagnoses Not on filedocumented in this encounter"
--- OUTSIDE RECORDS SUMMARY | ~2019-10-28 | XMS | Encounter Summary ---
Demographics + + + | Address | [address] | | | [place] [address] | + + + | Home Phone | | + + + | Preferred Language | Unknown | + + + | Marital Status | Single | + + + | Jewish Affiliation | CHR | + + + | Race | White | + + + | Ethnic Group | Not or | + + + Author + + + | Author | [facility] | + + + | Organization | [facility] | + + + | Address | Unknown | + + + | Phone | Unavailable | + + + Support + + + + + | Name | Relationship | Address | Phone | + + + + + | Krissy Rogers | BRADEN | [place] [address] | | + + + + + | Bay Rogers | ECON | Unknown | | + + + + + Care Team Providers + +------+ + | Care Communications Clerk Name | Role | Phone | + +------+ + | Jono Arambula | PCP | | + +------+ + Encounter Details +--------+ + + + + | Date | Type | Department | Care Team | Description | +--------+ + + + + | 08/21/ | Abstract | [facility] | Clinic, | | | 2012 | | [facility] [address] | Gastroenterology | | | | | [address] | | | | | | Mailcode: Center | | | | | | for Health and | | | | | | [facility] [address] | | | | | | [place], [place] | | | | | | [address] | | | | | | [phone] | | | +--------+ + + + [...] | | 2020 | Visit | | MD Erlin [address] | | | | | | [address] | | | | | | [place], [place] | | | | | | [address] | | | | | | [phone] | | | | | | | | +--------+---------+ + + + documented as of this encounter Visit Diagnoses Not on filedocumented in this encounter"
--- OUTSIDE RECORDS SUMMARY | ~2019-10-28 | XMS | Encounter Summary ---
Demographics + + + | Address | [address] | | | [place] [address] | + + + | Home Phone [...] Krissy Rogers | BRADEN | [place] [address] | | + + + + + | Bay Rogers | ECON | Unknown | | + + + + + Care Team Providers + +------+ + | Care Production Support Engineer Name | Role | Phone | + +------+ + | Jono Arambula | PCP | | + +------+ + Encounter Details +--------+ + + + + | Date | Type | Department | Care Team | Description | +--------+ + + + + | 01/20/ | Abstract | [facility] | Julianne Gongora, | | | 2012 | | [place] [facility] | [address] | | | | | [address] | | | | | [place], [place] | [place], [place] | | | | | [address] | [address] | | | | | [phone] | [phone] | | | | | | | [...] | 2020 | Visit | | [address] | | | | | | [address] | | | | | | [place], [place] | | | | | | [address] | | | | | | [phone] | | | | | | | | +--------+---------+ + + + documented as of this encounter Visit Diagnoses Not on filedocumented in this encounter"
--- OUTSIDE RECORDS SUMMARY | ~2019-10-28 | XMS | Encounter Summary ---
Demographics + + + | Address | [address] | | | [place] [address] | + + + | Home Phone | | + + + | Preferred Language | Unknown | + + + | Marital Status | Single | + + + | Christianity Affiliation | CHR | + + + [...] Krissy Rogers | BRADEN | [place] [address] | | + + + + + | Bay Rogers | ECON | Unknown | | + + + + + Care Team Providers + +------+ + | Care Linotype Machinist Name | Role | Phone | + +------+ + | Berna Keyes MD | PCP | | + +------+ + Encounter Details +--------+ + + + + | Date | Type | Department | Care Team | Description | +--------+ + + + + | 09/16/ | Legislative Correspondent | [facility] | Myron Mohan, | | | 2008 | | [facility] at | [address] | | | | | [address] | [place], [place] | | | | | [address] | [address] | | | | | [facility], [facility] | | | | | | [place], [place] | | | | | | [address] | | | +--------+ + + + [...] [address] | | | | | | [place] | | | | | | [address] | | | | | | [phone] | | | | | | | | +--------+---------+ + + + documented as of this encounter Visit Diagnoses Not on filedocumented in this encounter"
--- OUTSIDE RECORDS SUMMARY | ~2019-10-28 | XMS | Encounter Summary ---
Demographics + + + | Address | [address] | | | [place] [address] | + + + | Home Phone | | + + + | Preferred Language | Unknown | + + + | Marital Status | | + + + | Caodaism Affiliation | 1013 | + + + | Race | Unknown | + + + | Ethnic Group | Unknown | + + + Author + + + | Author | [facility] | | | and [place] | + + + | Organization | [facility] | [...] [place] | | | | | [address] | | + + + + + | Ellen Greer | ECON | [address] | | | | | [place] | | + + + + + | Gisell Greer | ECON | Unknown | | + + + + + Care Team Providers + +------+ + | Care Supervisor Of Way Name | Role | Phone | + +------+ + PCP | Unavailable | + +------+ + Encounter Details +--------+ + + + + | Date | Type | Department | Care Team | Description | +--------+ + + + + | 08/24/ | Hospital | [facility] | Jona Perez, | Unspecified Renal | | 2008 - | Encounter | [facility] [address] | [address] | Failure | | | | [address] | [place] [address] | | | 08/28/ | | [place], [place] | [phone] | | | 2008 | | [address] | | | | | | [phone] | Geoff Lacey, | | | | | | [address] | | | | | | [place] [address] | | | | | | [phone] | | | | | | | [...] | Visit | | [address] [facility] | | | | | | [address] [facility] | | | | | | [address] | | | | | | | | +--------+---------+ + + + documented as of this encounter Procedures + +--------+ + + + | Procedure Name | Priori | Date/Time | Associated Diagnosis | Comments | | | ty | | | | + +--------+ + + + | IR PLACEMENT | Routin | 08/25/2008 | | Results for this | | TUNNELED CENTRAL | e | 4:22 PM | | procedure are in the | | VENOUS CATHETER > 5 | | PDT | | results section. | | YEARS | | | | | + +--------+ + + + | VAS ANKLE BRACHIAL | Routin | 08/25/2008 | | Results for this | | INDEX RESTING | e | 12:57 PM | | procedure are in the | | | | PDT | | results section. | + +--------+ + + + | XR CHEST 1 VIEW | Routin | 08/24/2008 | | Results for this | | | e | 10:06 PM | | procedure are in the | | | | PDT | | results section. | + +--------+ + + + | US RENAL LIMITED | Routin | 08/24/2008 | | Results for this | | | e | 9:27 PM | | procedure are in the | | | | PDT | | results section. | + +--------+ + + + documented in this encounter Results IR Placement Tunneled CV Cath (08/25/2008 4:22 PM PDT) + + | Specimen | + + | | + + + + + | Narrative | Performed At | + + + | [id number] | | | Page 1 RADIOLOGY | | | [address]/ | | | OPO [facility] | | | CENTER NAME: [place] [address] | | | | | | | | | DATE OF : 1970 ORDER NUMBER: | | | [id number] EXAM DATE/TIME: 08/25/2008 03:21 P ORDERING PHYSICIAN: | | | GORDY RAMIREZ ORDER DETAIL: [id number] / / HCL EXAM | | | DESCRIPTION: CCL TUNNELED CV CATHETER INSERT | | | | | | PROCEDURES 1. SONOGRAM OF THE LOWER NECK VEINS 2. SONOGRAPHIC | | | GUIDANCE FOR ACCESS INTO RIGHT JUGULAR VEIN. 3. PLACEMENT OF 19-CM | | | 14.5-BRITISH DUAL-LUMEN TUNNELED PALINDROME HEMODIALYSIS CATHETER | | | IN THE RIGHT UPPER CHEST WITH ITS TIP IN UPPER RIGHT ATRIUM | | | INDICATIONS Acute on chronic renal failure. Needs access for | | | hemodialysis. MEDICATIONS 1% lidocaine for local anesthesia. | | | Fentanyl 100 mcg intravenously. Versed 4 mg intravenously. Ancef 1 g | | | intravenously. Total intraprocedural sedation is 27 minutes. | | | Fluoroscopic time: 0.18 minutes. Fluoroscopic dose: 3 mGy. | | | Appropriate physiologic monitoring was performed throughout the | | | procedure including snf supervision of conscious sedation. | | | DESCRIPTION OF PROCEDURE Informed written consent was obtained | | | from the patient after explaining the procedure, risks and | | | alternatives. The patient understood the discussion and expressed his | | | wish to proceed. The patient was placed supine on the x-ray | | | table. Sonography of the lower neck veins revealed widely patent and | | | compressible right jugular vein. Supraclavicular and infraclavicular | | | regions are prepped in the usual sterile fashion. Skin and | | | subcutaneous tissues were infiltrated with 1% lidocaine. The right | | | jugular vein was accessed using micropuncture needle and exchanged | | | for a 4-Kyrgyz micropuncture sheath over 0.018 wire. Skin in the | | | infraclavicular region was infiltrated with 1% lidocaine and a 5-mm | | | skin incision was made. A 14.5-Kyrgyz, dual-lumen 19-cm tunneled | | | Palindrome hemodialysis catheter was placed into the subcutaneous | | | tunnel using a metallic tunneler. The 4-Kyrgyz sheath was exchanged | | | for 0.035 3-mm J wire with its tip in the upper inferior vena cava | | | under fluoroscopic guidance. Skin and subcutaneous tract over 0.035 3 | | | mm J wire was dilated using 9-Kyrgyz and 12-Kyrgyz fascial dilators. | | | The 15-Kyrgyz peel-away sheath was placed over the wire with its tip | | | in upper right atrium. Free end of the dialysis catheter placed with | | | its tip in the upper right atrium and sheath was removed. Venotomy | | | site and catheter insertion site closure obtained using 3-0 Vicryl. | | | The skin entry site of the catheter was also sutured using | | | purse-string 3-0 Vicryl. The catheter was secured to the skin using | | | 2-0 Prolene. Both ports of the catheter aspirated and flushed freely. | | | Radiograph of the upper chest was obtained to verify placement. | | | FINDINGS 1. Sonography of the lower neck veins shows widely patent | | | and compressible right jugular vein. 2. Real-time documentation | | | of the needle into the right jugular vein was obtained. 3. Upper | | | chest radiograph shows dual-lumen 19-cm tunneled Palindrome | | | hemodialysis catheter with its tip in upper right atrium. | | | IMPRESSION 1. Sonography of the lower neck veins. 2. Successful | | | placement of 14.5-Kyrgyz, dual-lumen 19-cm tunneled Palindrome | | | hemodialysis catheter with its tip in the upper portion of the | | | right atrium, without incident. Read by GORDY RAMIREZ MD | | | 08/25/2008 04:06 P Electronically Signed by GORDY RAMIREZ MD | | | 08/26/2008 06:52 P P | | | 09:05 P CHELLE/dasha/[id number]/ cc: DO GORDY MISHRA | | | MD OJNA RAMIREZ MD | | + + + + + | Procedure Note | + + | Billy Butler Conversion - 12/16/2018 5:06 AM PDT | | [id number] Page 1 | | RADIOLOGY [address]/ | | OPO | | [facility] NAME: ANI [address] | | [place] [address] | | | | DATE OF : 1970 | | | | ORDER NUMBER: [id number] | | EXAM DATE/TIME: 08/25/2008 03:21 P | | ORDERING PHYSICIAN: GORDY RAMIREZ | | ORDER DETAIL: [id number] / / HCL | | EXAM DESCRIPTION: CCL TUNNELED CV CATHETER INSERT | | | | PROCEDURES | | 1. SONOGRAM OF THE LOWER NECK VEINS | | 2. SONOGRAPHIC GUIDANCE FOR ACCESS INTO RIGHT JUGULAR VEIN. | | 3. PLACEMENT OF 19-CM 14.5-BRITISH DUAL-LUMEN TUNNELED PALINDROME | | HEMODIALYSIS CATHETER IN THE RIGHT UPPER CHEST WITH ITS TIP IN UPPER | | RIGHT ATRIUM | | | | INDICATIONS | | Acute on chronic renal failure. Needs access for hemodialysis. | | | | MEDICATIONS | | 1% lidocaine for local anesthesia. | | Fentanyl 100 mcg intravenously. | | Versed 4 mg intravenously. | | Ancef 1 g intravenously. | | | | Total intraprocedural sedation is 27 minutes. | | Fluoroscopic time: 0.18 minutes. | | Fluoroscopic dose: 3 mGy. | | | | Appropriate physiologic monitoring was performed throughout the | | procedure including snf supervision of conscious sedation. | | | | DESCRIPTION OF PROCEDURE | | Informed written consent was obtained from the patient after explaining | | the procedure, risks and alternatives. The patient understood the | | discussion and expressed his wish to proceed. | | | | The patient was placed supine on the x-ray table. Sonography of the | | lower neck veins revealed widely patent and compressible right jugular | | vein. Supraclavicular and infraclavicular regions are prepped in the | | usual sterile fashion. Skin and subcutaneous tissues were infiltrated | | with 1% lidocaine. The right jugular vein was accessed using | | micropuncture needle and exchanged for a 4-Kyrgyz micropuncture sheath | | over 0.018 wire. Skin in the infraclavicular region was infiltrated with | | 1% lidocaine and a 5-mm skin incision was made. A 14.5-Kyrgyz, | | dual-lumen 19-cm tunneled Palindrome hemodialysis catheter was placed | | into the subcutaneous tunnel using a metallic tunneler. The 4-Kyrgyz | | sheath was exchanged for 0.035 3-mm J wire with its tip in the upper | | inferior vena cava under fluoroscopic guidance. Skin and subcutaneous | | tract over 0.035 3 mm J wire was dilated using 9-Kyrgyz and 12-Kyrgyz | | fascial dilators. The 15-Kyrgyz peel-away sheath was placed over the | | wire with its tip in upper right atrium. Free end of the dialysis | | catheter placed with its tip in the upper right atrium and sheath was | | removed. Venotomy site and catheter insertion site closure obtained | | using 3-0 Vicryl. The skin entry site of the catheter was also sutured | | using purse-string 3-0 Vicryl. The catheter was secured to the skin | | using 2-0 Prolene. Both ports of the catheter aspirated and flushed | | freely. Radiograph of the upper chest was obtained to verify placement. | | | | FINDINGS | | 1. Sonography of the lower neck veins shows widely patent and | | compressible right jugular vein. | | 2. Real-time documentation of the needle into the right jugular vein was | | obtained. | | 3. Upper chest radiograph shows dual-lumen 19-cm tunneled Palindrome | | hemodialysis catheter with its tip in upper right atrium. | | | | IMPRESSION | | 1. Sonography of the lower neck veins. | | 2. Successful placement of 14.5-Kyrgyz, dual-lumen 19-cm tunneled | | Palindrome hemodialysis catheter with its tip in the upper portion of | | the right atrium, without incident. | | | | | | Read by | | GORDY RAMIREZ MD 08/25/2008 04:06 P | | Electronically Signed by | | GORDY RAMIREZ MD 08/26/2008 06:52 P | | | | P | | P | | CHELLE/dasha/[id number]/ | | cc: RAJ VARGAS DO | | GORDY RAMIREZ MD | | JONA PEREZ MD | + + VAS Ankle Brachial Index Resting (08/25/2008 12:57 PM PDT) + + | Specimen | + + | | + + + + + | Narrative | Performed At | + + + | [id number] | | | Page 1 RADIOLOGY | | | [address]/ | | | [facility] | | | CENTER NAME: [place] [address] | | | | | | | | | DATE OF : 1970 ORDER NUMBER: | | | [id number] EXAM DATE/TIME: 08/25/2008 12:57 P ORDERING PHYSICIAN: | | | GEOFF LACEY ORDER DETAIL: [id number] / / HUS EXAM | | | DESCRIPTION: US VE/LE PHYSIO STUDY SINGLE LEV | | | | | | RESTING ANKLE-BRACHIAL INDICES 08/25/2008 HISTORY Acute renal | | | failure. COMPARISON None. TECHNIQUE We used duplex | | | ultrasound to obtain waveforms in the common femoral, popliteal, | | | posterior tibial and dorsalis pedis arteries on the right and left | | | sides. Peak systolic pressures also were measured. FINDINGS Peak | | | systolic pressure in the right brachial artery is 143 cm/s. A value | | | was not obtained in the left brachial artery. Peak systolic | | | pressure in the right dorsalis pedis is 169 for an ankle-brachial | | | index (NATALEE) of 1.18. In the right posterior tibial is 163 for an NATALEE | | | of 1.14. In the left posterior tibial 158 for an NATALEE of 1.10. In the | | | left dorsalis pedis 162 for an NATALEE of 1.13. In the right great toe | | | 136 for an NATALEE 0.95. In the left great toe 163 for an NATALEE of 1.14. | | | All these values are within the range of normal. We see triphasic | | | waveforms throughout the lower extremities with the exception of the | | | posterior tibial arteries bilaterally. Here the waveforms are | | | dampened, monophasic on the right and biphasic on the left. | | | Waveforms measured in the toes show preservation of pulsatile flow | | | bilaterally. IMPRESSION Normal resting ankle-brachial indices | | | throughout. Posterior tibial arteries show dampened duplex waveforms. | | | Read by LILIAN HENDERSON MD 08/25/2008 02:45 P Electronically | | | Signed by LILIAN HENDERSON MD 08/25/2008 07:25 P | | | 02:45 P P DWL/wayne/[id number]/ cc: RAJ | | | HERCL, DO MD LILIAN BAUER MD | | | JONA PEREZ MD | | + + + + + | Procedure Note | + + | Billy Butler - 12/16/2018 5:06 AM PDT | | [id number] Page 1 | | RADIOLOGY [address]/ | | OPO | | [facility] NAME: WILSON GREER | | [place] [address] | | | | DATE OF : 1970 | | | | ORDER NUMBER: [id number] | | EXAM DATE/TIME: 08/25/2008 12:57 P | | ORDERING PHYSICIAN: GEOFF LACEY | | ORDER DETAIL: [id number] / / HUS | | EXAM DESCRIPTION: US VE/LE PHYSIO STUDY SINGLE LEV | | | | RESTING ANKLE-BRACHIAL INDICES 08/25/2008 | | | | HISTORY | | Acute renal failure. | | | | COMPARISON | | None. | | | | TECHNIQUE | | We used duplex ultrasound to obtain waveforms in the common femoral, | | popliteal, posterior tibial and dorsalis pedis arteries on the right and | | left sides. Peak systolic pressures also were measured. | | | | FINDINGS | | Peak systolic pressure in the right brachial artery is 143 cm/s. A value | | was not obtained in the left brachial artery. | | | | Peak systolic pressure in the right dorsalis pedis is 169 for an | | ankle-brachial index (NATALEE) of 1.18. In the right posterior tibial is 163 | | for an NATALEE of 1.14. In the left posterior tibial 158 for an NATALEE of 1.10. | | In the left dorsalis pedis 162 for an NATALEE of 1.13. In the right great | | toe 136 for an NATALEE 0.95. In the left great toe 163 for an NATALEE of 1.14. | | All these values are within the range of normal. | | | | We see triphasic waveforms throughout the lower extremities with the | | exception of the posterior tibial arteries bilaterally. Here the | | waveforms are dampened, monophasic on the right and biphasic on the | | left. | | | | Waveforms measured in the toes show preservation of pulsatile flow | | bilaterally. | | | | IMPRESSION | | Normal resting ankle-brachial indices throughout. Posterior tibial | | arteries show dampened duplex waveforms. | | | | Read by | | LILIAN HENDERSON MD 08/25/2008 02:45 P | | Electronically Signed by | | LILIAN HENDERSON MD 08/25/2008 07:25 P | | | | P | | P | | ANSLEY/wayne/[id number]/ | | cc: RAJ VARGAS DO | | GEOFF LACEY MD | | LILIAN HENDERSON MD | | JONA PEREZ MD | + + XR Chest 1 Vw (08/24/2008 10:06 PM PDT) + + | Specimen | + + | | + + + + + | Narrative | Performed At | + + + | [id number] | | | Page 1 RADIOLOGY | | | [facility] [address]/ | | | O [facility] | | | CENTER NAME: [place] [address] | | | | | | | | | DATE OF : 1970 ORDER NUMBER: | | | [id number] EXAM DATE/TIME: 08/24/2008 09:32 P ORDERING PHYSICIAN: | | | CAM CASTANO ORDER DETAIL: [id number] / / HDI EXAM DESCRIPTION: | | | XR CHEST 1 VIEW | | | | | | PORTABLE AP UPRIGHT CHEST 08/24/2008 HISTORY Preoperative. | | | TECHNIQUE Portable AP upright chest at 2200 hours. COMPARISON | | | None. FINDINGS Overall lung volumes are within normal limits. The | | | lungs are clear. No pulmonary mass or nodule. No focal | | | consolidation. No pulmonary edema or pleural effusion. The heart is | | | normal size. No hilar or mediastinal mass or lymphadenopathy. | | | IMPRESSION No acute cardiopulmonary disease. Read by LILIAN | | | Fatuma HENDERSON MD 08/25/2008 07:35 A Electronically Signed by LILIAN Burris | | Simon HENDERSON MD 08/25/2008 03:14 P A DT: | | | 08/25/2008 10:10 A ANSLEY/eugenie/[id number]/ cc: RAJ VARGAS DO | | | MD LILIAN BURR MD | | + + + + + | Procedure Note | + + | Billy Butler - 12/16/2018 5:06 AM PDT | | [id number] Page 1 | | RADIOLOGY CDU 55198/ | | OPO | | [facility] NAME: WILSON GREER | | [place] [address] | | | | DATE OF : 1970 | | | | ORDER NUMBER: [id number] | | EXAM DATE/TIME: 08/24/2008 09:32 P | | ORDERING PHYSICIAN: CAM CASTANO | | ORDER DETAIL: [id number] / / HDI | | EXAM DESCRIPTION: XR CHEST 1 VIEW | | | | PORTABLE AP UPRIGHT CHEST 08/24/2008 | | | | HISTORY | | Preoperative. | | | | TECHNIQUE | | Portable AP upright chest at 2200 hours. | | | | COMPARISON | | None. | | | | FINDINGS | | Overall lung volumes are within normal limits. The lungs are clear. No | | pulmonary mass or nodule. No focal consolidation. No pulmonary edema or | | pleural effusion. The heart is normal size. No hilar or mediastinal mass | | or lymphadenopathy. | | | | IMPRESSION | | No acute cardiopulmonary disease. | | | | | | | | Read by | | LILIAN HENDERSON MD 08/25/2008 07:35 A | | Electronically Signed by | | LILIAN HENDERSON MD 08/25/2008 03:14 P | | | | A | | A | | ANSLEY/eugenie/[id number]/ | | cc: RAJ VARGAS DO | | CAM CASTANO MD | | LILIAN HENDERSON MD | + + US Renal Limited (08/24/2008 9:27 PM PDT) + + | Specimen | + + | | + + + + + | Narrative | Performed At | + + + | [id number] | | | Page 1 RADIOLOGY | | | [facility] [address]/ | | | OPO [facility] | | | CENTER NAME: [place] [address] | | | | | | | | | DATE OF : 1970 ORDER NUMBER: | | | [id number] EXAM DATE/TIME: 08/24/2008 08:49 P ORDERING PHYSICIAN: | | | CAM CASTANO ORDER DETAIL: [id number] / / HUS EXAM DESCRIPTION: | | | US RETROPERITONEAL | | | | | | RETROPERITONEAL RENAL AND BLADDER ULTRASOUND 08/24/2008 HISTORY A | | | 37-year-old male with hematuria. The patient also has chronic renal | | | failure. The patient is starting dialysis tomorrow. TECHNIQUE A | | | pulsed Doppler duplex transducer with color mapping was utilized. | | | FINDINGS The right kidney measures 10.8 x 5.8 x 6.0 cm and | | | demonstrates mild cortical thinning, with increased echogenicity | | | throughout the renal cortex, suggesting medical renal disease. No | | | mass or hydronephrosis visualized. No obvious shadowing of stone. | | | The left kidney measures 11.5 x 6.8 x 6.1 cm, with mild thinning of | | | the cortex and increased echogenicity throughout the cortex, | | | consistent with medical renal disease. No mass, hydronephrosis, or | | | obvious stone. The urinary bladder is only mildly distended, with | | | an estimated volume of 50 mL. The ureteral jets were not visualized. | | | Postvoid residual was not measured. IMPRESSION 1. No evidence of | | | hydronephrosis or renal mass. 2. Increased cortical echogenicity | | | throughout both kidneys, consistent with medical renal disease. | | | 3. Unremarkable bladder, though postvoid residual was not measured. | | | Read by GEOFF SCOTT MD 08/24/2008 09:22 P Electronically | | | Signed by GEOFF SCOTT MD 08/25/2008 12:02 P DD: | | | 08/24/2008 09:22 P A YANA/archie/[id number]/ cc: | | | DO CAM MISHRA MD STEVEN L | | | MD SONIA | | + + + + + | Procedure Note | + + | Billy Butler - 12/16/2018 5:06 AM PDT | | [id number] Page 1 | | RADIOLOGY CDU 23390/ | | OPO | | [facility] NAME: WILSON GREER | | [place] [address] | | | | DATE OF : 1970 | | | | ORDER NUMBER: [id number] | | EXAM DATE/TIME: 08/24/2008 08:49 P | | ORDERING PHYSICIAN: CAM CASTANO | | ORDER DETAIL: [id number] / / HUS | | EXAM DESCRIPTION: US RETROPERITONEAL | | | | RETROPERITONEAL RENAL AND BLADDER ULTRASOUND 08/24/2008 | | | | HISTORY | | A 37-year-old male with hematuria. The patient also has chronic renal | | failure. The patient is starting dialysis tomorrow. | | | | TECHNIQUE | | A pulsed Doppler duplex transducer with color mapping was utilized. | | | | FINDINGS | | The right kidney measures 10.8 x 5.8 x 6.0 cm and demonstrates mild | | cortical thinning, with increased echogenicity throughout the renal | | cortex, suggesting medical renal disease. No mass or hydronephrosis | | visualized. No obvious shadowing of stone. | | | | The left kidney measures 11.5 x 6.8 x 6.1 cm, with mild thinning of the | | cortex and increased echogenicity throughout the cortex, consistent with | | medical renal disease. No mass, hydronephrosis, or obvious stone. | | | | The urinary bladder is only mildly distended, with an estimated volume | | of 50 mL. The ureteral jets were not visualized. Postvoid residual was | | not measured. | | | | IMPRESSION | | 1. No evidence of hydronephrosis or renal mass. | | 2. Increased cortical echogenicity throughout both kidneys, consistent | | with medical renal disease. | | 3. Unremarkable bladder, though postvoid residual was not measured. | | | | | | Read by | | GEOFF SCOTT MD 08/24/2008 09:22 P | | Electronically Signed by | | GEOFF SCOTT MD 08/25/2008 12:02 P | | | | P | | A | | YANA/archie/[id number]/ | | cc: RAJ VARGAS DO | | CAM CASTANO MD | | GEOFF SCOTT MD | + + documented in this encounter Visit Diagnoses + + | Diagnosis | + + | Renal failure, unspecified | + + documented in this encounter"
--- OUTSIDE RECORDS SUMMARY | ~2019-10-28 | XMS | Encounter Summary ---
Demographics + + + | Address | [address] | | | [place] [address] | + + + | Home Phone | | + + + | Preferred Language | Unknown | + + + | Marital Status | Single | + + + | Latter-Day Affiliation | CHR | + + + | Race | White | + + + | Ethnic Group | Not or | + + + Author + + + | Author | [facility] | + + + | Organization | [facility] | + + + | Address | Unknown | + + + | Phone | Unavailable | + + + Support + + + + + | Name | Relationship | Address | Phone | + + + + + | Krissy Rogers | BRADEN | [place] [address] | | + + + + + | Bay Rogers | ECON | Unknown | | + + + + + Care Team Providers + +------+ + | Care Grease Remover Name | Role | Phone | + [...] | | | | | | | [place], [place] | | | | | | | [address] | | | | | | | Phone: | | | | | | | [phone] | | | | | | | Fax: | | | | | | | [phone] | +--------+--------+ + + + + Encounter Details +--------+ + + + + | Date | Type | Department | Care Team | Description | +--------+ + + + + | 09/16/ | Hospital | [facility] | Maria Elena Lieberman, | | | 2008 | Encounter | ST[address] | MD [address] | | | | | [address] [facility] | [address] | | | | | Clarita Alanis | [place], [place] | | | | | [place], [place] | [address] | | | | | [address] | [phone] | | | | | | | [...] + documented as of this encounter Discharge Jose Enrique Fulton, Faculty - 09/16/2008 3:15 PM PDT documented in this encounter Medications at [...] + + + +---------+ + + | atropine 1 % | Instill 1 Drop into | 5cc | 0 | 09/17/19 | | | Ophthalmic Drops | the left eye two | | | 09 | 9 | | | times daily. In | | | | | | | operative eye | | | | | + + + +---------+ + + | | Take by mouth. Take | 20 | 0 | 09/17/19 | | | hydrocodone-acetamin | 1-2 Tabs every 4 | | | 09 | 9 | | ophen 5-500 mg Oral | hours as needed for | | | | | | Tablet | pain | | | | | + + + +---------+ + + | ofloxacin | Instill 1 Drop into | 5cc | 0 | 09/17/19 | | | (OCUFLOX) 0.3 % | the left eye four | | | 09 | 9 | | Ophthalmic Drops | times daily. In | | | | | | | operative eye | | | | | + + + +---------+ + + | prednisoLONE | Instill 1 Drop into | 10cc | 1 | 09/17/19 | | | acetate 1 % | the left eye four | | | 09 | 9 | | Ophthalmic Drops, | times daily. In | | | | | | Suspension | operative eye | | | | | + + + +---------+ + + documented as of this encounter Progress Notes Yoko Fulton - 09/16/2008 3:15 PM PDT documented in this encounter Plan of Treatment +--------+---------+ + + + | Date | Type | Specialty | Care Team | Description | +--------+---------+ + + + | 01/26/ | Office | Ophthalmology | Maria Elena Lieberman, | | | 2019 | Visit | | [address] | | | | | [address] | | | | | | [place], [place] | | | | | | [address] | | | | | | [phone] | | | | | | | | +--------+---------+ + + + documented as of this encounter Procedures + +--------+ + + + | Procedure Name | Priori | Date/Time | Associated Diagnosis | Comments | | | ty | | | | + +--------+ + + + | ANESTHESIA/SEDATION | | 09/16/2008 | | Results for this | | | | 3:15 PM | | procedure are in the | | | | PDT | | results section. | + +--------+ + + + | ORDERS OTHER | | 09/16/2008 | | Results for this | | | | 3:15 PM | | procedure are in the | | | | PDT | | results section. | + +--------+ + + + | 12 LEAD ECG | Routin | 09/16/2008 | | Results for this | | | e | 7:57 AM | | procedure are in the | | | | PDT | | results section. | + +--------+ + + + | ELECTROLYTE SET (NA, | Routin | 09/16/2008 | | Results for this | | K, CL, CO2) | e | 7:40 AM | | procedure are in the | | | | PDT | | results section. | + +--------+ + + + | BASIC METABOLIC SET | Urgent | 09/16/2008 | | Results for this | | (NA, K, CL, TCO2, | | 7:40 AM | | procedure are in the | | BUN, CR, GLU, CA) | | PDT | | results section. | + +--------+ + + + | RENAL FUNCTION SET | Routin | 09/16/2008 | | Results for this | | (NA,K,CL,CO2,BUN,CRE | e | 7:40 AM | | procedure are in the | | AT,GLUC,CA,PHOS,ALB | | PDT | | results section. | | ) | | | | | + +--------+ + + + | CBC ONLY | Routin | 09/16/2008 | | Results for this | | | e | 7:40 AM | | procedure are in the | | | | PDT | | results section. | + +--------+ + + + | OPERATION RECORD | | 09/16/2008 | | Results for this | | | | 12:00 AM | | procedure are in the | | | | PDT | | results section. | + +--------+ + + + documented in this encounter Results ANESTHESIA/SEDATION (09/16/2008 3:15 PM PDT) + + + | Narrative | Performed At | + + + | | | + + + + + | Procedure Note | + + | Donaldo Faculty - 09/16/2008 3:15 PM PDT | | | + + ORDERS OTHER (09/16/2008 3:15 PM PDT) + + + | Narrative | Performed At | + + + | | | + + + + + | Procedure Note | + + | Donaldo Faculty - 09/16/2008 3:15 PM PDT | | | + + 12 LEAD ECG (09/16/2008 7:57 AM PDT) + + + + + + | Component | Value | Ref Range | Performed | Pathologist | | | | | At | Signature | + + + + + + | VENTRICULAR | 68 | BPM | [facility] | | | RATE | | | OF | | | | | | CARDIOLOGY | | + + + + + + | ATRIAL RATE | 68 | BPM | [facility] | | | | | | OF | | | | | | CARDIOLOGY | | + + + + + + | P-R | 164 | ms | [facility] | | | INTERVAL | | | OF | | | | | | CARDIOLOGY | | + + + + + + | QRS | 90 | ms | [facility] | | | DURATION | | | OF | | | | | | CARDIOLOGY | | + + + + + + | QT | 388 | ms | [facility] | | | | | | OF | | | | | | CARDIOLOGY | | + + + + + + | QTC | 413 | ms | [facility] | | | | | | OF | | | | | | CARDIOLOGY | | + + + + + + | P AXIS | 39 | degrees | [facility] | | | | | | OF | | | | | | CARDIOLOGY | | + + + + + + | R AXIS | 7 | degrees | [facility] | | | | | | OF | | | | | | CARDIOLOGY | | + + + + + + | T AXIS | 69 | degrees | [facility] | | | | | | OF | | | | | | CARDIOLOGY | | + + + + + + | EKG | Normal sinus | | [facility] | | | DIAGNOSIS | rhythmNormal ECG"I have | | OF | | | | personally interpreted | | CARDIOLOGY | | | | this report, either | | | | | | alone or with a | | | | | | trainee."Confirmed by | | | | | | DAMON MARTINEZ ([id number]) on | | | | | | 17-Sep-2008 16:45:40 | | | | + + + + + + | LINK TO | | | [facility] | | | [facility] [employer] | | | OF | | | (ECG | | | CARDIOLOGY | | | VIEWER) | | | | | + + + + + + + + | Specimen | + + | | + + + + + | Narrative | Performed At | + + + | Please click | [facility] | | on view image for the detailed interpretation from [employer] results. | CARDIOLOGY | | | | + + + + + + + + | Performing | Address | City/State/Zipcode | Phone Number | | Organization | | | | + + + + + | [facility] | [address] | [place], [place] | | | CARDIOLOGY | [address] | [address] | | + + + + + | [facility] | [address] | [place], [place] | | | CARDIOLOGY | [facility] | [address] | | + + + + + RENAL FUNCTION SET (NA,K,CL,CO2,BUN,CREAT,GLUC,CA,PHOS,ALB ) (09/16/2008 7:40 AM PDT) + + + + + + | Component | Value | Ref Range | Performed | Pathologist | | | | | At | Signature | + + + + + + | GLUCOSE, | 229 (H) | 60 - 99 mg/dL | [facility] | | | PLASMA | | | DEPARTMENT | | | (LAB) | | | OF | | | | | | PATHOLOGY | | + + + + + + | BUN, PLASMA | 33 (H) | 6 - 20 mg/dL | [facility] | | | (LAB) | | | DEPARTMENT | | | | | | OF | | | | | | PATHOLOGY | | + + + + + + | CREATININE | 6.28 (H) | 0.70 - 1.30 | [facility] | | | PLASMA | | mg/dL | DEPARTMENT | | | (LAB) | | | OF | | | | | | PATHOLOGY | | + + + + + + | ALBUMIN, | 2.5 (L) | 3.5 - 4.7 g/dL | [facility] | | | PLASMA | | | DEPARTMENT | | | (LAB) | | | OF | | | | | | PATHOLOGY | | + + + + + + | CALCIUM, | 9.1 | 8.6 - 10.2 | [facility] | | | PLASMA | | mg/dL | DEPARTMENT | | | (LAB) | | | OF | | | | | | PATHOLOGY | | + + + + + + | PHOSPHORUS, | 6.6 (H) | 2.4 - 4.7 mg/dL | [facility] | | | PLASMA | | | DEPARTMENT | | | (LAB) | | | OF | | | | | | PATHOLOGY | | + + + + + + | SODIUM, | 136 | 134 - 143 | [facility] | | | PLASMA | | mmol/L | DEPARTMENT | | | (LAB) | | | OF | | | | | | PATHOLOGY | | + + + + + + | POTASSIUM, | 4.9 | 3.4 - 5.0 | [facility] | | | PLASMA | | mmol/L | DEPARTMENT | | | (LAB) | | | OF | | | | | | PATHOLOGY | | + + + + + + | CHLORIDE, | 96 (L) | 97 - 108 mmol/L | [facility] | | | PLASMA | | | DEPARTMENT | | | (LAB) | | | OF | | | | | | PATHOLOGY | | + + + + + + | TOTAL CO2, | 30 | 23 - 31 mmol/L | [facility] | | | PLASMA | | | DEPARTMENT | | | (LAB) | | | OF | | | | | | PATHOLOGY | | + + + + + + + + | Specimen | + + | | + + + + + | Narrative | Performed At | + + + | [id number] Estimated GFR = 10 mL/min/1.73 sq m if non- | [facility] | | Turkish [id number] Estimated GFR = 12 mL/min/1.73 sq m if | DEPARTMENT OF | | Turkish GFR is estimated using the MDRD equation recommended by | PATHOLOGY | | the National Kidney Disease Education Program. Estimated GFR | | | Interpretive Information: <60 mL/min/1.73 sq m Chronic Kidney | | | Disease <15 mL/mon/1.73 sq m Kidney Failure Estimated GFR | | | greater than 60mL/min/1.73 is of limited clinical Value. The MDRD | | | equation is not valid in the following situations: - Patients under | | | 18 years of age - Severe malnutrition or obesity - Vegetarian diet | | | - Rapidly changing kidney function | | + + + + + + + + | Performing | Address | City/State/Zipcode | Phone Number | | Organization | | | | + + + + + | [facility] | [address] | [place] [address] | | | PATHOLOGY | [address] | | | + + + + + | [facility] | [address] | [place] [address] | | | PATHOLOGY | [address] | | | + + + + + BASIC METABOLIC SET (NA, K, CL, TCO2, BUN, CR, GLU, CA) (09/16/2008 7:40 AM PDT) + +---------+ + + + | Component | Value | Ref Range | Performed | Pathologist | | | | | At | Signature | + +---------+ + + + | GLUCOSE, | Dup req | 60 - 99 mg/dL | [facility] | | | PLASMA | | | DEPARTMENT | | | (LAB) | | | OF | | | | | | PATHOLOGY | | + +---------+ + + + | BUN, PLASMA | Dup req | 6 - 20 mg/dL | [facility] | | | (LAB) | | | DEPARTMENT | | | | | | OF | | | | | | PATHOLOGY | | + +---------+ + + + | CREATININE | Dup req | 0.70 - 1.30 | [facility] | | | PLASMA | | mg/dL | DEPARTMENT | | | (LAB) | | | OF | | | | | | PATHOLOGY | | + +---------+ + + + | SODIUM, | Dup req | 134 - 143 | [facility] | | | PLASMA | | mmol/L | DEPARTMENT | | | (LAB) | | | OF | | | | | | PATHOLOGY | | + +---------+ + + + | POTASSIUM, | Dup req | 3.4 - 5.0 | [facility] | | | PLASMA | | mmol/L | DEPARTMENT | | | (LAB) | | | OF | | | | | | PATHOLOGY | | + +---------+ + + + | CHLORIDE, | Dup req | 97 - 108 mmol/L | [facility] | | | PLASMA | | | DEPARTMENT | | | (LAB) | | | OF | | | | | | PATHOLOGY | | + +---------+ + + + | TOTAL CO2, | Dup req | 23 - 31 mmol/L | [facility] | | | PLASMA | | | DEPARTMENT | | | (LAB) | | | OF | | | | | | PATHOLOGY | | + +---------+ + + + | CALCIUM, | Dup req | 8.6 - 10.2 | [facility] | | | PLASMA | | mg/dL | DEPARTMENT | | | (LAB) | | | OF | | | | | | PATHOLOGY | | + +---------+ + + + + + | Specimen | + + | Blood - Blood | + + + + + + + | Performing | Address | City/State/Zipcode | Phone Number | | Organization | | | | + + + + + | [facility] DE[facility]MENT [facility] | [address] | [place] [address] | | | PATHOLOGY | [address] | | | + + + + + | [facility] DEPARTMENT [facility] | [address] | [place] [address] | | | PATHOLOGY | [address] | | | + + + + + ELECTROLYTE SET (NA, K, CL, CO2) (09/16/2008 7:40 AM PDT) + +--------+ + + + | Component | Value | Ref Range | Performed | Pathologist | | | | | At | Signature | + +--------+ + + + | SODIUM, | 136 | 134 - 143 | [facility] | | | PLASMA | | mmol/L | DEPARTMENT | | | (LAB) | | | OF | | | | | | PATHOLOGY | | + +--------+ + + + | POTASSIUM, | 4.9 | 3.4 - 5.0 | [facility] | | | PLASMA | | mmol/L | DEPARTMENT | | | (LAB) | | | OF | | | | | | PATHOLOGY | | + +--------+ + + + | CHLORIDE, | 96 (L) | 97 - 108 mmol/L | [facility] | | | PLASMA | | | DEPARTMENT | | | (LAB) | | | OF | | | | | | PATHOLOGY | | + +--------+ + + + | TOTAL CO2, | 30 | 23 - 31 mmol/L | [facility] | | | PLASMA | | | DEPARTMENT | | | (LAB) | | | OF | | | | | | PATHOLOGY | | + +--------+ + + + + + | Specimen | + + | Blood - Blood | + + + + + | Narrative | Performed At | + + + | [id number] Estimated GFR = 10 mL/min/1.73 sq m if non- | [facility] | | Turkish [id number] Estimated GFR = 12 mL/min/1.73 sq m if | DEPARTMENT | | Turkish GFR is estimated using the MDRD equation recommended by | PATHOLOGY | | the National Kidney Disease Education Program. Estimated GFR | | | Interpretive Information: <60 mL/min/1.73 sq m Chronic Kidney | | | Disease <15 mL/mon/1.73 sq m Kidney Failure Estimated GFR | | | greater than 60mL/min/1.73 is of limited clinical Value. The MDRD | | | equation is not valid in the following situations: - Patients under | | | 18 years of age - Severe malnutrition or obesity - Vegetarian diet | | | - Rapidly changing kidney function | | + + + + + + + + | Performing | Address | City/State/Zipcode | Phone Number | | Organization | | | | + + + + + | [facility] | [address] | [place] [address] | | | PATHOLOGY | [address] | | | + + + + + | [facility] | [address] | [place] [address] | | | PATHOLOGY | [address] | | | + + + + + CBC ONLY (09/16/2008 7:40 AM PDT) + + + + + + | Component | Value | Ref Range | Performed | Pathologist | | | | | At | Signature | + + + + + + | WHITE CELL | 11.1 (H) | 4.4 - 11.0 K/cu | [facility] | | | COUNT | | mm | DEPARTMENT | | | | | | OF | | | | | | PATHOLOGY | | + + + + + + | RED CELL | 4.03 (L) | 4.50 - 5.90 | [facility] | | | COUNT | | M/cu mm | DEPARTMENT | | | | | | OF | | | | | | PATHOLOGY | | + + + + + + | HEMOGLOBIN | 12.2 (L) | 13.5 - 17.5 | [facility] | | | | | g/dL | DEPARTMENT | | | | | | OF | | | | | | PATHOLOGY | | + + + + + + | HEMATOCRIT | 37.1 (L) | 41.0 - 53.0 % | [facility] | | | | | | DEPARTMENT | | | | | | OF | | | | | | PATHOLOGY | | + + + + + + | MCV | 92.1 | 80.0 - 96.0 fL | [facility] | | | | | | DEPARTMENT | | | | | | OF | | | | | | PATHOLOGY | | + + + + + + | MCHC | 32.9 (L) | 33.4 - 35.5 | [facility] | | | | | g/dL | DEPARTMENT | | | | | | OF | | | | | | PATHOLOGY | | + + + + + + | RDW | 16.0 (H) | 11.5 - 15.0 % | [facility] | | | | | | DEPARTMENT | | | | | | OF | | | | | | PATHOLOGY | | + + + + + + | PLATELET | 781 (H) | 150 - 400 K/cu | [facility] | | | COUNT | | mm | DEPARTMENT | | | | | | OF | | | | | | PATHOLOGY | | + + + + + + + + | Specimen | + + | Blood - Blood | + + + + + + + | Performing | Address | City/State/Zipcode | Phone Number | | Organization | | | | + + + + + | [facility] | [address] | [place] [address] | | | PATHOLOGY | [address] | | | + + + + + | [facility] | [facility] | [place] [address] | | | PATHOLOGY | [address] | | | + + + + + OPERATION RECORD (09/16/2008 12:00 AM PDT) + + + | Narrative | Performed At | + + + | [id number] | | | [id number] | | | [id number] [address] [id number] | | | Date: 09/16/2008 Attending Surgeon: | | | Maria Elena Lieberman M.D. Dry Mill Operator(s): | | | Myron Meehan M.D. | | | Preoperative Diagnoses: 1. 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 2. Proliferative diabetic | | | retinopathy in the left eye. Postoperative Diagnoses: 1. | | | Combined traction/rhegmatogenous retinal detachment in the | | | left eye. 2. 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 | | | Procedures Performed: 1. Pars plana vitrectomy, | | | left eye. 2. Membrane peel, left eye. 3. Endolaser, left | | | eye. 4. Silicone oil (1000 centistoke), left eye. | | | Anesthesia: Monitored anesthesia care with retrobulbar injection. | | | Estimated Blood Loss: Less than 1 cc. Complications: | | | None. Specimens: None. Indications for Procedure: | | | Zoey is a 38-year-old diabetic with advanced proliferative disease | | | in both eyes. He presented to clinic with a total combined | | | traction/rhegmatogenous retinal detachment in the left eye. His | | | vision was bare hand motions. The risk, benefits, and alternatives | | | to surgery were discussed in detail with the patient. His questions | | | were answered, and he voiced understanding of the risks and freely | | | gave his informed consent for surgery. Procedure: The | | | patient was identified in the preoperative holding area and | | | transferred to the operating suite where the Anesthesia staff | | | established appropriate monitors. A surgical pause was performed | | | during which the entire operative staff agreed upon the correct | | | patient name, operative site, and procedures to be performed. | | | Light intravenous anesthesia was induced, and a retrobulbar block | | | was delivered to the left eye without complication. The patient | | | was prepped and draped in a typical fashion for sterile surgery. | | | Lid speculum was placed. The operating microscope was positioned | | | over the eye. Temporal and superonasal conjunctival peritomies were | | | fashioned with the Orquidea scissors, and hemostasis was achieved | | | with cautery. 4 mm posterior to the limbus was measured | | | inferotemporally, and a 7-0 Vicryl suture was preplaced. An MVR | | | blade was used to make a sclerotomy between the suture passes, and | | | an infusion cannula was sewn into place. Light pipe was used to | | | visualize the correct placement of the infusion line. Similar | | | sclerotomies were fashioned superonasally and superotemporally, and | | | light pipe and vitreous cutter were introduced into the eye. The | | | JOVITA lens system was used to visualize the posterior segment, and | | | the pars plana vitrectomy was performed. There was noted to be a | | | densely fibrotic ring involving the posterior hyaloid at the optic | | | nerve. The vitreous cutter was used to lift this area away from | | | the optic nerve and retina as much as it was felt safe--a complete | | | separation was not possible. Having created the partial hyaloidal | | | separation, the vitreous cutter was used to breakthrough the | | | section of the posterior hyaloid, and this plane was carried | | | peripherally and then circumferentially. There were noted to be | | | dense areas of epiretinal fibrosis inferiorly as well as | | | superotemporally. The vitreous was truncated around these areas. | | | The peripheral vitrectomy was augmented with scleral depression. | | | Delaminating scissors were then used to dissect these areas of | | | fibrosis away from the retina. There were noted to be multiple | | | retinal breaks associated with the tractional membrane in these | | | areas. Having dissected the epiretinal fibrosis away from the | | | inferior and supertemporal areas, the amputated areas of fibrosis | | | were cleared using the vitreous cutter. The retina was noted to | | | be significantly less tense, however, there was some intrinsic | | | retinal fibrosis. Therefore, the vitreous cutter was used to | | | create a relaxing retinectomy in those areas. Subsequently, there | | | was minimal residual retinal traction, and an air-fluid exchange | | | was performed. The retina was noted to flatten nicely. Endolaser | | | was then used to treat the retinal breaks as well as to perform a | | | panretinal photocoagulation. Of note, there were multiple, smaller | | | breaks scattered nasally and superiorly. There was a large | | | peripheral superotemporal break as well. Having finished the | | | laser, the retina was carefully examined with the use of scleral | | | depression, and there were no additional breaks noted. 1000 | | | centistoke silicone oil was then used to fill the posterior segment. | | | It was visualized to cover the retinal tears, and the instruments | | | were subsequently withdrawn from the eye, and the superonasal | | | sclerotomy was closed with 7-0 Vicryl suture. Just prior to closure | | | of the superotemporal sclerotomy, the oil was used to ensure a | | | complete posterior segment fill, and the sclerotomies were then | | | closed. The securing suture for the infusion cannula was | | | loosened, and the cannula tip was withdrawn simultaneous to the | | | sclerotomy closure. Large bore irrigation was used to remove the | | | residual silicone oil from the ocular surface. The conjunctival | | | peritomies were then closed with plain gut sutures. The pressure | | | was checked and noted to be within normal limits. Subconjunctival | | | cefuroxime, vancomycin, and dexamethasone were administered. The | | | lid speculum was removed. After all the drapes were taken down, | | | atropine solution, timolol solution, and antibiotic ointment was | | | placed on the eye, and the eye was patched and shielded. The | | | patient was then returned to the recovery area having tolerated the | | | procedure well. Dr. Lieberman then discussed the operative findings | | | and postoperative instructions with the patient and his mother. | | | He was given an appointment to follow up on the morning after | | | surgery and has our 24-hour contact information should he need to | | | speak to us before then. I certify that the services for which | | | payment is claimed were medically necessary and that no qualified | | | resident was available to perform the services. I further | | | understand that these services are subject to post-payment review | | | by the Medicare carrier. Advanced assistance was utilized in the | | | portions of the case where sophisticated manipulation of the globe | | | or the biomicroscopic visualization system was required for meeting | | | the surgical objectives. Myron Meehan M.D. | | | Maria Elena Lieberman M.D. [facility] [id number] / [id number] / | | | [id number] / | | + + + + + | Procedure Note | + + | Myron Meehan Md - 09/16/2008 12:00 AM PDT [id number] | | [id number] ZOEY STEWART | | [id number] Date: 09/16/2008 Attending Surgeon: | | Maria Elena Lieberman M.D. Dry Mill Operator(s): Myron Meehan M.D. | | Preoperative Diagnoses:1. Combined traction/rhegmatogenous retinal detachment in the | | left eye.2. 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 Postoperative | | Diagnoses:1. 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 | | Proliferative diabetic retinopathy in the left eye. Procedures Performed:1. Pars | | plana vitrectomy, left eye.2. Membrane peel, left eye.3. Endolaser, left eye.4. | | Silicone oil (1000 centistoke), left eye. Anesthesia:Monitored anesthesia care with | | retrobulbar injection. Estimated Blood Loss:Less than 1 cc. Complications:None. | | Specimens:None. Indications for Procedure:Mr. Rogers is a 38-year-old diabetic with | | advanced proliferative disease inboth eyes. He presented to clinic with a total | | combinedtraction/rhegmatogenous retinal detachment in the left eye. His vision was bare | | handmotions. The risk, benefits, and alternatives tosurgery were discussed in detail | | with the patient. His questions wereanswered, and he voiced understanding of the risks | | and freely gave hisinformed consent for surgery. Procedure:The patient was identified | | in the preoperative holding area and transferredto the operating suite where the | | Anesthesia staff established appropriatemonitors. A surgical pause was performed during | | which the entire operativestaff agreed upon the correct patient name, operative site, | | and proceduresto be performed. Light intravenous anesthesia was induced, and | | aretrobulbar block was delivered to the left eye without complication. Thepatient was | | prepped and draped in a typical fashion for sterile surgery.Lid speculum was placed. | | The operating microscope was positioned over theeye. Temporal and superonasal | | conjunctival peritomies were fashioned withthe Orquidea scissors, and hemostasis was | | achieved with cautery. 4 mmposterior to the limbus was measured inferotemporally, and a | | 7-0 Vicrylsuture was preplaced. An MVR blade was used to make a sclerotomy betweenthe | | suture passes, and an infusion cannula was sewn into place. Light pipewas used to | | visualize the correct placement of the infusion line. Similarsclerotomies were | | fashioned superonasally and superotemporally, and lightpipe and vitreous cutter were | | introduced into the eye. The JOVITA lens systemwas used to visualize the posterior | | segment, and the pars plana vitrectomywas performed. There was noted to be a densely | | fibrotic ring involving the posterior hyaloid at the optic nerve. The vitreous cutter | | was used to lift this area away from the optic nerve and retina as much as it was felt | | safe--a complete separation was not possible. Having created the partial hyaloidal | | separation, the vitreous cutter wasused to breakthrough the section of the posterior | | hyaloid, and this planewas carried peripherally and then circumferentially. There were | | noted to be dense areas of epiretinalfibrosis inferiorly as well as superotemporally. | | The vitreous wastruncated around these areas. The peripheral vitrectomy was augmented | | withscleral depression. Delaminating scissors were then used to dissect theseareas of | | fibrosis away from the retina. There were noted to be multipleretinal breaks associated | | with the tractional membrane in these areas.Having dissected the epiretinal fibrosis | | away from the inferior and supertemporalareas, the amputated areas of fibrosis were | | cleared using the vitreouscutter. The retina was noted to be significantly less tense, | | however,there was some intrinsic retinal fibrosis. Therefore, the vitreous cutterwas | | used to create a relaxing retinectomy in those areas. Subsequently,there was minimal | | residual retinal traction, and an air-fluid exchange wasperformed. The retina was noted | | to flatten nicely. Endolaser was thenused to treat the retinal breaks as well as to | | perform a panretinalphotocoagulation. Of note, there were multiple, smaller breaks | | scatterednasally and superiorly. There was a large peripheral superotemporal breakas | | well. Having finished the laser, the retina was carefully examined withthe use of | | scleral depression, and there were no additional breaks noted.1000 centistoke silicone | | oil was then used to fill the posterior segment.It was visualized to cover the retinal | | tears, and the instruments weresubsequently withdrawn from the eye, and the superonasal | | sclerotomy was closed with7-0 Vicryl suture. Just prior to closure of the | | superotemporalsclerotomy, the oil was used to ensure a complete posterior segment | | fill,and the sclerotomies were then closed. The securing suture for theinfusion cannula | | was loosened, and the cannula tip was withdrawnsimultaneous to the sclerotomy closure. | | Large bore irrigation was used toremove the residual silicone oil from the ocular | | surface. The conjunctivalperitomies were then closed with plain gut sutures. The | | pressure waschecked and noted to be within normal limits. Subconjunctival | | cefuroxime,vancomycin, and dexamethasone were administered. The lid speculum | | wasremoved. After all the drapes were taken down, atropine solution, timololsolution, | | and antibiotic ointment was placed on the eye, and the eye waspatched and shielded. The | | patient was then returned to the recovery areahaving tolerated the procedure well. | | Mio then discussed theoperative findings and postoperative instructions with the | | patient and hismother. He was given an appointment to follow up on the morning | | aftersurgery and has our 24-hour contact information should he need to speak tous before | | then. I certify that the services for which payment is claimed were medicallynecessary | | and that no qualified resident was available to perform theservices. I further | | understand that these services are subject topost-payment review by the Medicare | | carrier. Advanced assistance wasutilized in the portions of the case where | | sophisticated manipulation ofthe globe or the biomicroscopic visualization system was | | required formeeting the surgical objectives. Myron Meehan M.D. Maria Elena Mishra | | Aron Lieberman. / [id number] / [id number] / [id number] / T: 09/17/2008 | |posterior to the limbus was measured inferotemporally, and a 7-0 Vicryl | |suture was preplaced. An MVR blade was used to make a sclerotomy between | |the suture passes, and an infusion cannula was sewn into place. Light pipe | |was used to visualize the correct placement of the infusion line. Similar | |sclerotomies were fashioned superonasally and superotemporally, and light | |pipe and vitreous cutter were introduced into the eye. The JOVITA lens system | |was used to visualize the posterior segment, and the pars plana vitrectomy | |was performed. There was noted to be a densely fibrotic ring involving the posterior hyalo id at the optic nerve. The vitreous cutter was used to lift this area away from the optic n erve and retina as much as it was felt | |safe--a complete separation was not possible. Having created the partial hyaloidal separati on, the vitreous cutter was | |used to breakthrough the section of the posterior hyaloid, and this plane | |was carried peripherally and then circumferentially. There were noted to be dense areas of epiretinal | |fibrosis inferiorly as well as superotemporally. The vitreous was | |truncated around these areas. The peripheral vitrectomy was augmented with | |scleral depression. Delaminating scissors were then used to dissect these | |areas of fibrosis away from the retina. There were noted to be multiple | |retinal breaks associated with the tractional membrane in these areas. | |Having dissected the epiretinal fibrosis away from the inferior and supertemporal | |areas, the amputated areas of fibrosis were cleared using the vitreous | |cutter. The retina was noted to be significantly less tense, however, | |there was some intrinsic retinal fibrosis. Therefore, the vitreous cutter | |was used to create a relaxing retinectomy in those areas. Subsequently, | |there was minimal residual retinal traction, and an air-fluid exchange was | |performed. The retina was noted to flatten nicely. Endolaser was then | |used to treat the retinal breaks as well as to perform a panretinal | |photocoagulation. Of note, there were multiple, smaller breaks scattered | |nasally and superiorly. There was a large peripheral superotemporal break | |as well. Having finished the laser, the retina was carefully examined with | |the use of scleral depression, and there were no additional breaks noted. | |1000 centistoke silicone oil was then used to fill the posterior segment. | |It was visualized to cover the retinal tears, and the instruments were | |subsequently withdrawn from the eye, and the superonasal sclerotomy was closed with | |7-0 Vicryl suture. Just prior to closure of the superotemporal | |sclerotomy, the oil was used to ensure a complete posterior segment fill, | |and the sclerotomies were then closed. The securing suture for the | |infusion cannula was loosened, and the cannula tip was withdrawn | |simultaneous to the sclerotomy closure. Large bore irrigation was used to | |remove the residual silicone oil from the ocular surface. The conjunctival | |peritomies were then closed with plain gut sutures. The pressure was | |checked and noted to be within normal limits. Subconjunctival cefuroxime, | |vancomycin, and dexamethasone were administered. The lid speculum was | |removed. After all the drapes were taken down, atropine solution, timolol | |solution, and antibiotic ointment was placed on the eye, and the eye was | |patched and shielded. The patient was then returned to the recovery area | |having tolerated the procedure well. Dr. Lieberman then discussed the | |operative findings and postoperative instructions with the patient and his | |mother. He was given an appointment to follow up on the morning after | |surgery and has our 24-hour contact information should he need to speak to | |us before then. | | | | | |I certify [...] | | | | | | | |Myron Meehan M.D. | | | | | | | | | | | | | |Maria Elena Lieberman M.D. | | | | | | / | |[id number] / [id number] / [id number] / | | | | | | | | | | | | | | | | | | | | | + + documented in this encounter Visit Diagnoses Not on filedocumented in this encounter
--- OUTSIDE RECORDS SUMMARY | ~2019-10-28 | XMS | Encounter Summary ---
Demographics + + + | Address | [address] | | | [place] [address] | + + + | Home Phone [...] Author + + + | Author | [facility] | + + + | Organization | [facility] | + + + | Address | Unknown | + + + | Phone | Unavailable | + + + Support + + + + + | Name | Relationship | Address | Phone | + + + + + | Krissy Rogers | BRADEN | [place] [address] | | + + + + + | Bay Rogers | ECON | Unknown | | + + + + + Care Team Providers + +------+ + | Care Geographic Information Systems Director Name | Role | Phone | + +------+ + | Bola Chaudhry MD | PCP | | + +------+ + Reason for Visit + + + | Reason | Comments | + + + | YAG laser post | | | capsulotomy | | + + + Encounter Details +--------+---------+ + + + | Date | Type | Department | Care Team | Description | +--------+---------+ + + + | 02/27/ | Office | [facility] | Sherrie Workman MD | Right posterior | | 2017 | Visit | [place] | [address] | capsular | | | | ogy at [facility] [address] | [place], [place] | opacification | | | | [address] Mailcode: | [id number] | (Primary Dx) | | | | [address] | [phone] | | | | | [facility], | | | | | | | | | | | | Floor [place], [place] | | | | | | [address] | | | | | | [phone] | | | +--------+---------+ + + + [...] documented as of this encounter Progress Notes Stacey Flores - 02/27/2017 11:00 AM PSTFormatting of this note might be different from dorothy kulkarni original. COMPREHENSIVE OPHTHALMOLOGY PROGRESS NOTE Assessment and Plan: Exam Date: 02/27/2017 Patient:Wilson Rogers ([id number]) Impression: s/p PPV/PPL/retinectomy/EL/gas OS on 12/02/2008 -retina stable and attached, f/b Dr. Lieberman Sulcus IOL OU good position -S/p yag capsulotomy OD, doing well with improvement in vision Vision loss OD 2008 most likely due to severe hypoperfusion during dialysis - had brain MRI and findings and exam reviewed in the past with Dr. Roman - stable without recovery but no further decline Plan: F/u 1 year or sooner prn Physician: Sherrie Workman MD 02/27/2017 HPI: Wilson Rogers ([id number]), 46 y.o. year old male from [place] : Patient presents with: YAG laser post capsulotomy Vision improved! No pain or discomfort, OD. Tobacco use: reports that he quit smoking about 6 years ago. He has never used smokeless t obacco. 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 Family ocular history: Family history includes Additional Family History in his mother. See scanned intake form or preadmission data in [facility] for full Family ocular and medical his tory. Allergies: is allergic to benicar [olmesartan medoxomil]; dilaudid [hydromorphone]; lisinop ril; megace [megestrol]; morphine; penicillins; and reglan [metoclopramide hcl]. Medications: Current Outpatient Prescriptions Medication Sig aspirin EC 81 mg Oral tablet,delayed release (DR/EC) Take by mouth. Take 81 mg by mout h Daily. atorvastatin 40 mg oral tablet Take 40 mg by mouth once daily. Cholecalciferol, Vitamin D3, 3,000 unit Oral tablet Take 5,000 Units by mouth. Take 1 c apsule by mouth Daily. cinacalcet 30 mg Oral tablet Take by mouth. Take 60 mg by mouth Daily 1800. clopidogrel 75 mg Oral tablet Take by mouth. Take 1 tablet by mouth Daily. gabapentin 300 mg oral capsule Take by mouth. hydrochlorothiazide 12.5 mg oral tablet Take by mouth. HYDROcodone-acetaminophen 5-325 mg Oral tablet Take by mouth. Take 1 tablet by mouth E very 4 Hours As Needed for Pain. Insulin Glargine (LANTUS SOLOSTAR) 300 unit/3 mL Subcutaneous Insulin Pen Inject 35 Uni ts under the skin (SUBC) once daily at bedtime. LEVOTHYROXINE ORAL Take 150 mcg by mouth once daily. LORazepam 1 mg Oral tablet Take by mouth. Take 1 mg by mouth 4 Times Daily As Needed. For nausea losartan 50 mg Oral tablet Take 25 mg by mouth. Take 1 tablet by mouth 3 Times Daily. magnesium chloride SR 64 mg oral tablet,delayed release (DR/EC) Take 128 mg by mouth th ree times daily. metoprolol tartrate 50 mg Oral tablet Take by mouth. Take 2 tablets by mouth 2 Times D aily. Indications: take 50mg in morning and 100mg at night mycophenolate 250 mg Oral capsule Take by mouth. Take 3 capsules by mouth 2 Times Leena y. NOVOLOG SUBQ Inject under the skin (SUBC). Sliding scale with dinner omeprazole 20 mg Oral capsule,delayed release(DR/EC) Take by mouth. Take 1 capsule by mouth Daily. predniSONE 5 mg Oral tablet Take by mouth. Take 1 tablet by mouth Daily. Prevents reje ction. Take with food. promethazine 25 mg Oral Tablet Take 1 Tab by mouth four times daily as needed for nause a/vomiting. REGLAN ORAL Take 5 mg by mouth four times daily (before each meal and at bedtime). tacrolimus 1 mg Oral capsule Take by mouth. Take 1-2 capsules by mouth 2 Times Daily. Take 1mg in the morning and 2mg in the evening. zolpidem 5 mg Oral tablet Take by mouth. Take 5 mg by mouth At Bedtime As Needed. No current facility-administered medications for this visit. Medical history/PMH/Review of systems: Patient Active Problem List Diagnosis Vision, loss, sudden Proliferative diabetic retinopathy (HCC) Retinal detachment Type II or unspecified type diabetes mellitus with ophthalmic manifestations, uncontrol led(250.52) (HCC) Kidney replaced by transplant Encounter for long-term (current) use of medications Polycythemia, secondary Proliferative diabetic retinopathy of both eyes without macular edema associated with t ype 2 diabetes mellitus (HCC) Past Medical History: Diagnosis Date Nephritis and nephropathy, not specified as acute or chronic, with unspecified patholog ical lesion in kidney Type I (juvenile type) diabetes mellitus without mention of complication, not stated as uncontrolled Unspecified essential hypertension Unspecified retinal detachment has a past surgical history that includes vitrectomy; retina laser; scleral buckle (); a nd kidney transplant (2012). Reviewed systems for: fever, wt. loss, ENT, cardiovascular, pulmonary, GI, urinary, neurolo gic, endocrine, bleeding/blood disorders, AIDS/HIV, cancer/tumors, arthritis - all were nega tive except as noted above. EXAMINATION: Base Exam Visual Acuity (Snellen - Linear) Right Left Dist sc CF @ face Tonometry (Applanation, 10:51 AM) Right Left Pressure 13 Dilation Right eye: 2.5% Phenylephrine, 1.0% Mydriacyl @ 10:51 AM Neuro/Psych Oriented x3: Yes Mood/Affect: Normal Slit Lamp and Fundus Exam External Exam Right Left External Normal Normal Slit Lamp Exam Right Left Lids/Lashes Normal Normal Conjunctiva/Sclera White and quiet White and quiet Cornea All layers clear All layers clear Anterior Chamber Deep and quiet Deep and quiet Iris Normal no NVI Normal no NVI Lens PC IOL in sulcus , open PC PC IOL in sulcus Vitreous Normal Fundus Exam Right Left Disc pale C/D Ratio 0.7 Macula flat Periphery PRP STACEY Palmer, performed, reviewed or revised the above history, medications, allergies, as well as visual acuity and IOP. See EPIC ophthalmology module for exam information. Assessment and Plan is now at the top of the note. I have reviewed and edited history and procurement technician documentation, and performed all other el ements to above examination documentation. Sherrie Workman MD Cab Worker [facility] Physician: Sherrie Workman MD documented in this enc ounter Plan of Treatment +--------+---------+ + + + | Date | Type | Specialty | Care Team | Description | +--------+---------+ + + + | 01/26/ | Office | Ophthalmology | Maria Elena Lieberman, | | | 2019 | Visit | | [address] | | | | | | [place], [place] | | | | | | [address] | | | | | | [phone] | | | | | | | | +--------+---------+ + + + documented as of this encounter Visit Diagnoses + + | Diagnosis | + + | Right posterior capsular opacification - Primary After-cataract, unspecified | + + documented in this encounter"
--- OUTSIDE RECORDS SUMMARY | ~2019-10-28 | XMS | Encounter Summary ---
Demographics + + + | Address | [address] | | | [place] [address] | + + + | Home Phone [...] Krissy Rogers | BRADEN | [place] [address] | | + + + + + | Bay Rogers | ECON | Unknown | | + + + + + Care Team Providers + +------+ + | Care Air Sampler Name | Role | Phone | + +------+ + | Bola Chaudhry MD | PCP | | + +------+ + Encounter Details +--------+ + + + + | Date | Type | Department | Care Team | Description | +--------+ + + + + | 03/28/ | Ancillary | [facility] | | | | 2011 | Orders | [facility] | | | | | | [address] | | | | | | [place], | | | | | | [place] [address] | | | +--------+ + + + [...] | | 2019 | Visit | | [address] | | | | | | [address] | | | | | | [place], [place] | | | | | | [address] | | | | | | [phone] | | | | | | | | +--------+---------+ + + + documented as of this encounter Procedures + +--------+ + + + | Procedure Name | Priori | Date/Time | Associated Diagnosis | Comments | | | ty | | | | + +--------+ + + + | LIT FLOW HLA AB | Routin | 03/28/2012 | | | | QUICK SCREEN I/II | e | 4:30 PM | | | | | | PST | | | + +--------+ + + + documented in this encounter Results LIT FLOW HLA AB QUICK SCREEN I/II (03/28/2012 4:30 PM PST) + + | Specimen | + + | Blood - Blood | + + + + + + + | Performing | Address | City/State/Zipcode | Phone Number | | Organization | | | | + + + + + | [facility] - | [address] | [place] [address] | | | IMMUNOGENETICS/TRANS | [address] | | | | [facility] | | | | + + + + + documented in this encounter Visit Diagnoses Not on filedocumented in this encounter"
--- OUTSIDE RECORDS SUMMARY | ~2019-10-28 | XMS | Encounter Summary ---
Demographics + + + | Address | [address] | | | [place] [address] | + + + | Home Phone | | + + + | Preferred Language | Unknown | + + + | Marital Status | Single | + + + | Judaism Affiliation | CHR | + + + [...] Krissy Rogers | BRADEN | [place] [address] | | + + + + + | Bay Rogers | ECON | Unknown | | + + + + + Care Team Providers + +------+ + | Care Manager Nicu Name | Role | Phone | + +------+ + | Jono Arambula | PCP | | + +------+ + Reason for Visit +---------+ + | Reason | Comments | +---------+ + | Post Op | Pt states vision is improving, no eye pain. No trouble with | | | drops. | +---------+ + Encounter Details +--------+---------+ + + + | Date | Type | Department | Care Team | Description | +--------+---------+ + + + | 10/08/ | Office | [facility] | Maria Elena Lieberman, | Unspecified Retinal | | 2008 | Visit | [facility] at | [address] | Detachment; [facility] | | | | [facility] [address] | Manif Type II, | | | | [address] | [place], [place] | Uncontrolled ([facility]); | | | | [facility] [place] | [address] | Vision, Loss, | | | | floor [place], [place] | [phone] | Sudden; | | | | [address] | | Proliferative | | | | | | Diabetic Retinopathy | | | | | | ([facility]) | +--------+---------+ + + + [...] Progress Notes Maria Elena Lieberman MD - 10/08/2008 1:49 PM PDTFormatting of this note might be different f rom the original. Retina Division Progress Note: Post OP Note Chief Complaint Patient presents with Post Op Pt states vision is improving, no eye pain. No trouble with drops. His blood pressure re nidia low and he continues off his BP rx HPI: Wilson Rogers is a 38 y.o. male status post PPV,MP,EL SO OS on 09/16/2008. PMH: No changes or hospitalizations. Referring Provider: Dr. 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 Allergies: Penicillins and Lisinopril Meds: PF 4x, , Atropine 1x Examination: 09/24/2008 [facility] IOP 1:51 PM Right Eye HM with projection / / 11 Left Eye HM with projection / / 12 10/08/2008 [facility] IOP 1:59 PM Right Eye CF at 1 foot / NI 18 Left Eye HM with projection / NT 18 Alert and oriented times 4. Both eyes dilated with Mydriacyl and Neosynephrine OU @ 1:59 PM by Crystal Murcia Chart Notes Reviewed cjf SLE OD OS Lids Unremarkable Mild edema [...] is pale. The CDR OS is 0.4 IMPRESSION: Post op status post PPV/MP/retinectomy/oil OS on 09/16/2008 - good IOP some oil in ac - stab le Plan ROSO early October 2008 2. Vision loss OD. He has been seen by Dr. Roman who has reviewed his MRI scan - no signifi cant abnormality - most likely cause of vision loss is ischemic event due to hypotension - h e continues off his BP rx due to persistent hypotension - vision has improved slightly OD PLAN: Atropine 1% OS qhs Prednisolone OS taper No lifting, bending or straining x 2 weeks. Pain medicines as needed. Positioning: face down or right side down at night only Return to clinic in 2 weeks for ROSO - par held and paperwork done today - consent signed Will plan for October 21 Maria Elena Lieberman MD documented in this encounter Plan of Treatment +--------+---------+ + + + | Date | Type | Specialty | Care Team | Description | +--------+---------+ + + + | 01/26/ | Office | Ophthalmology | Maria Elena Lieberman, | | | 2020 | Visit | | [address] | | | | | | [place], [place] | | | | | | [address] | | | | | | [phone] | | | | | | | | +--------+---------+ + + + documented as of this encounter Visit Diagnoses + + | Diagnosis | + + | Unspecified retinal detachment | + + | Type II 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
--- OUTSIDE RECORDS SUMMARY | ~2019-10-28 | XMS | Clinical Summary ---
Demographics + + + | Address | [address] | | | [place] [address] | + + + | Home Phone | | + + + | Preferred Language | Unknown | + + + | Marital Status | | + + + | Sikhism Affiliation | 1013 | + + + | Race | Unknown | + + + | Ethnic Group | Unknown | + + + Author + + + | Author | [facility] | | | and [place] | + + + | Organization | [facility] | | | and [place] | + + + | Address | Unknown | + + + | Phone | Unavailable | + + + Support + + + + + | Name | Relationship | Address | Phone | + + + + + | Deysi Montelongo | ECON | [address] | | | | | [facility] | | | | | [address] | | + + + + + | Ellen Rogers | ECON | [address] | | | | | [place] | | + + + + + | iGsell Rogers | ECON | Unknown | | + + + + + Care Team Providers + +------+ + | Care Fish Hatchery Specialist Name | Role | Phone | + +------+ + | Fatuma Agee NP | PCP | | + +------+ + Allergies + + + + + + | Active Allergy | Reactions | Severity | Noted | Comments | | | | | Date | | + + + + + + | Adhesive & Tape | Itching | Low | 10/07/19 | | | | | | 17 | | + + + + + + | Clindamycin | Itching, Rash | Low | 10/07/19 | | | | | | 17 | | + + + + + + | Hydromorphone | Rash | Medium | 10/22/19 | | | | | | 13 | | + + + + + + | Insulins | Other (See Comments) | Medium | 10/12/19 | To beef or pork | | | | | 11 | insulin only | + + + + + + | Lisinopril | Other (See | Medium | 09/16/19 | Cough | | | Comments), Cough | | 09 | | + + + + + + | Losartan | Nausea And Vomiting | Low | 07/09/19 | | | | | | 19 | | + + + + + + | Megestrol | Other (See | Medium | 10/12/19 | Steve in blood | | | Comments), Unknown | | 11 | glucose per pt | | | | | | Increased Glucose | | | | | | levels | | | | | | hyperglycemia Steve | | | | | | in blood glucose | | | | | | per pt | + + + + + + | Megestrol Acetate | Nausea Only | Low | 03/25/20 | High blood sugar | | | | | 12 | | + + + + + + | Metoclopramide | Other (See Comments) | Medium | 05/01/19 | "I couldn't hold | | | | | 12 | my legs still. | | | | | | Restless legs" | | | | | | Extreme muscle | | | | | | movement | + + + + + + | Morphine | Other (See Comments) | Medium | 01/20/20 | | | | | | 16 | | + + + + + + | Olmesartan | Cough, Other (See | Medium | 01/20/20 | | | | Comments) | | 16 | | + + + + + + | Penicillins | Hives | Low | 03/25/20 | | | | | | 12 | | + + + + + + Medications + + + +---------+------+------+-------+ | Medication | Sig | Dispensed | Refills | Star | End | Statu | | | | | | t | Date | s | | | | | | Date | | | + + + +---------+------+------+-------+ | nitroglycerin | Place 0.4 mg under | | 0 | | | Activ | | (NITROSTAT) 0.4 mg | the tongue every 5 | | | | | e | | SL tablet | minutes as needed. | | | | | | + + + +---------+------+------+-------+ | aspirin 81 mg EC | Take 81 mg by mouth | | 0 | | | Activ | | tablet | Daily. | | | | | e | + + + +---------+------+------+-------+ | clopidogrel | Take 75 mg by mouth | | 0 | | | Activ | | (PLAVIX) 75 mg | Daily. | | | | | e | | tablet | | | | | | | + + + +---------+------+------+-------+ | GLUCAGON EMERGENCY | Inject 1 mg as | | 0 | 05/1 | | Activ | | 1 MG injection | directed as needed. | | | 1/20 | | e | | | | | | 17 | | | + + + +---------+------+------+-------+ | NOVOLOG FLEXPEN | Inject under the | | 0 | 05/1 | | Activ | | 100 UNIT/ML | skin 3 times daily | | | 8/20 | | e | | injection pen | (before meals). | | | 17 | | | + + + +---------+------+------+-------+ | gabapentin | Take 600 mg by mouth | | 0 | | | Activ | | (NEURONTIN) 300 mg | 3 times daily. | | | | | e | | capsule | | | | | | | + + + +---------+------+------+-------+ | | Take 12.5 mg by | | 0 | | | Activ | | hydroCHLOROthiazide | mouth 2 times daily. | | | | | e | | (HYDRODIURIL) 12.5 | | | | | | | | MG tablet | | | | | | | + + + +---------+------+------+-------+ | atorvaSTATin | Take 40 mg by mouth | | 0 | | | Activ | | (LIPITOR) 40 mg | nightly. | | | | | e | | tablet | | | | | | | + + + +---------+------+------+-------+ | metoprolol | Take 100 mg by mouth | | 0 | | | Activ | | tartrate (LOPRESSOR) | 2 times daily. | | | | | e | | 100 mg tablet | | | | | | | + + + +---------+------+------+-------+ | omeprazole | Take 20 mg by mouth | | 0 | | | Activ | | (PRILOSEC) 20 mg | 2 times daily. | | | | | e | | capsule | | | | | | | + + + +---------+------+------+-------+ | zoledronic acid | Inject 5 mg into the | | 0 | | | Activ | | (RECLAST) 5 mg/100 | vein once. Once a | | | | | e | | mL SOLN | year | | | | | | + + + +---------+------+------+-------+ | calcium carbonate | Take 1 tablet by | | 0 | | | Activ | | (TUMS) 500 mg | mouth Daily. | | | | | e | | chewable tablet | | | | | | | + + + +---------+------+------+-------+ | Cholecalciferol | Take 5,000 Units by | | 0 | | | Activ | | (VITAMIN D-3) 5000 | mouth Daily. | | | | | e | | units CAPS | | | | | | | + + + +---------+------+------+-------+ | insulin aspart | Inject under the | | 0 | | | Activ | | (NOVOLOG) 100 | skin continuous. | | | | | e | | units/mL | | | | | | | | subcutaneous pump | | | | | | | | infusion | | | | | | | + + + +---------+------+------+-------+ | UNCODED DME | Inject under the | | 0 | | | Activ | | | skin. SUBSCUTANEOUS | | | | | e | | | INSULIN | | | | | | | | PUMP(PATIENT'S OWN) | | | | | | | | MISC; INJECT INTO | | | | | | | | THE SKIN CONTINOUS. | | | | | | | | NOVOLOG: BASAL RATE | | | | | | | | WITH BOLUS DOSING | | | | | | | | WITH MEALS (1 UNIT | | | | | | | | FOR 4 GRAMS OF CARBS | | | | | | | | FROM 21:00-07:00, | | | | | | | | 1:5 FROM | | | | | | | | 07:00=21:00; | | | | | | | | CORRECTION 1 UNIT:30 | | | | | | | | MG/DL > 90 MG/DL | | | | | | + + + +---------+------+------+-------+ | Insulin Infusion | by Does not apply | | 0 | | | Activ | | Pump (PARADIGM REVEL | route. | | | | | e | | INSULIN PUMP) NADIA | | | | | | | + + + +---------+------+------+-------+ | mycophenolate | Take 4 capsules by | | 0 | 06/2 | | Activ | | (CELLCEPT) 250 mg | mouth 2 (two) times | | | 4/20 | | e | | capsule | daily. | | | 13 | | | + + + +---------+------+------+-------+ | cinacalcet | TAKE ONE TABLET BY | | 0 | 07/1 | | Activ | | (SENSIPAR) 30 mg | MOUTH TWICE A DAY | | | 2/20 | | e | | tablet | | | | 13 | | | + + + +---------+------+------+-------+ | levothyroxine | Take 112 mcg by | | 0 | | | Activ | | (SYNTHROID) 137 MCG | mouth daily. | | | | | e | | tablet | | | | | | | + + + +---------+------+------+-------+ | losartan (COZAAR) | Take 1 tablet by | | 0 | 04/1 | | Activ | | 25 mg tablet | mouth 2 (two) times | | | 01/10 | | e | | | daily. | | | 19 | | | + + + +---------+------+------+-------+ | tacrolimus | 1 mg in the morning | | 0 | 06/2 | | Activ | | (PROGRAF) 1 mg | and 1 mg at night | | | 6 | | e | | capsule | | | | 13 | | | + + + +---------+------+------+-------+ | acetone, urine, | Use as directed for | | 0 | 12/2 | | Activ | | test (KETOSTIX) | BG >450 or if sick, | | | 05/12 | | e | | strip | >230 | | | 10 | | | + + + +---------+------+------+-------+ | Blood Glucose | USE DIRECTED. | | 0 | | | Activ | | Monitoring Suppl | | | | | | e | | (PRODIGY AUTOCODE | | | | | | | | BLOOD GLUCOSE) NADIA | | | | | | | + + + +---------+------+------+-------+ | glucose blood | 4 times daily. | | 0 | 03/2 | | Activ | | test strips (PRODIGY | | | | 01/10 | | e | | NO CODING BLOOD | | | | 18 | | | | GLUC) strip | | | | | | | + + + +---------+------+------+-------+ | insulin pen needle | taking 4 injections | | 0 | | | Activ | | (B-D ULTRAFINE III | per day | | | | | e | | SHORT PEN) 31 gauge | | | | | | | | x 8 mm | | | | | | | + + + +---------+------+------+-------+ | PRODIGY LANCETS | TEST 4 TIMES A DAY | | 0 | 07/0 | | Activ | | 28G MISC | | | | 6/20 | | e | | | | | | 17 | | | + + + +---------+------+------+-------+ | magnesium chloride | Take 64 mg by mouth | | 0 | | | Activ | | (MAG64) 64 mg EC | 3 times daily. | | | | | e | | tablet | | | | | | | + + + +---------+------+------+-------+ | insulin glargine | Inject under the | | 0 | 04/1 | | Activ | | (PRIMO HARRIS) | skin. | | | 6/20 | | e | | 300 units/mL | | | | 19 | | | | concentrated | | | | | | | | injection (pen) | | | | | | | + + + +---------+------+------+-------+ | torsemide | Take 1 tablet by | 30 | 11 | 10/0 | | Activ | | (DEMADEX) 10 mg | mouth Daily. | tablet | | 11/09 | | e | | tablet | | | | 19 | | | + + + +---------+------+------+-------+ Active Problems + + + | Problem | Noted Date | + + + | Class 1 obesity due to excess calories without serious | 01/27/2019 | | comorbidity with body mass index (BMI) of 32.0 to 32.9 in adult | | + + + | Bilateral leg edema | 01/27/2019 | + + + | Localized osteoporosis without current pathological fracture | 02/05/2018 | + + + | Steroid-induced osteoporosis | 02/05/2018 | + + + | Immunosuppression | 02/04/2018 | + + + | Hypomagnesemia | 01/19/2014 | + + + | Vitamin D deficiency | 07/28/2013 | + + + | Essential hypertension, benign | 06/09/2013 | + + + | Depression | 01/27/2013 | + + + | Diabetes mellitus with end-stage renal disease | 01/27/2013 | + + + | Diabetic neuropathy | 01/27/2013 | + + + | Dyslipidemia | 01/27/2013 | + + + | Elevated red blood cell count | 01/27/2013 | + + + | Hypothyroidism | 01/27/2013 | + + + | Immunosuppressive management encounter following kidney | 01/27/2013 | | transplant | | + + + | Secondary hyperparathyroidism | 01/27/2013 | + + + | Type 2 diabetes mellitus with diabetic nephropathy, 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 | | long-term current use of insulin | | + + + | Acquired polycythemia | 01/20/2013 | + + + | Other mcfp (current) drug therapy | 01/20/2013 | + + + + + | Overview: Overview: | | ICD10 | + + + + + | Complication of kidney transplant | 11/08/2012 | + + + | Kidney replaced by transplant | 10/07/2012 | + + + + + | Overview: Overview: donor 15 hours cold ischemia.18 | | year old standard donor CMV positive | + + + + + | Cardiac murmur | 05/01/2011 | + + + | History of stroke | 05/01/2011 | + + + + + | Overview: Overview: | | 2008; Right weakness | + + + + + | Peripheral vascular disease | 05/01/2011 | + + + | Gastroesophageal reflux disease | 05/01/2011 | + + + | Retinal detachment | 09/17/2008 | + + + + + | Overview: Overview: | | ICD10 | + + + + + | Acute loss of vision | 09/15/2008 | + + + | Proliferative diabetic retinopathy | 09/15/2008 | + + + + + | Overview: Overview: | | ICD10 | + + + +---+ | Epigastric pain | | + +---+ | Esophageal reflux | | + +---+ | Nausea & vomiting | | + +---+ | ESRD on dialysis | | + +---+ + + | Overview: renal insufficiency | + + Encounters +--------+ + + + + | Date | Type | Specialty | Care Team | Description | +--------+ + + + + | 10/27/ | Telephone | Nephrology | Wandy Lorenzana | Swelling (Send to | | 2020 | | | [facility] | ER) | +--------+ + + + + from Last 3 Months Immunizations + + + + | Name | Administration Dates | Next Due | + + + + | HEP B, 3 DOSE | 03/25/2010, 01/05/2010, 12/16/2009, | | | (ADULT) | 10/22/2009, 10/04/2009, 09/24/2009, | | | | 05/18/2009, 10/19/2008, 09/21/2008, | | | | 08/31/2008 | | + + + + | INFLUENZA TRIV | 12/22/2016, 01/21/2016, 04/19/2015, | | | W/PRES(PED/ADOL/ADUL | 01/27/2013, 12/29/2009, 12/22/2009, | | | T),MULTIDOSE | 05/20/2009, 01/08/2009 | | + + + + | PNEUMOCOCCAL | 03/16/2014 | | | POLYSACCHARIDE | | | | 23-VALENT (PPSV23) | | | + + + + Family History + + +------+ + | Medical History | Relation | Name | Comments | + + +------+ + | Alzheimer's disease | Paternal | | | | | Grandfath | | | | | er | | | + + +------+ + | COPD | Paternal | | | | | Grandfath | | | | | er | | | + + +------+ + | Cancer | Paternal | | skin cancer | | | Grandfath | | | | | er | | | + + +------+ + | Diabetes | Paternal | | | | | Grandfath | | | | | er | | | + + +------+ + | COPD | Paternal | | | | | Grandfath | | | | | er | | | + + +------+ + | Cancer | Paternal | | | | | Grandfath | | | | | er | | | + + +------+ + | Heart disease | Paternal | | | | | Grandmoth | | | | | er | | | + + +------+ + | Arthritis | Paternal | | | | | Grandmoth | | | | | er | | | + + +------+ + | Heart disease | Paternal | | | | | Grandmoth | | | | | er | | | + + +------+ + + +------+ + + | Relation | Name | Status | Comments | + +------+ + + | Brother | | Alive | | + +------+ + + | Brother | | Alive | | + +------+ + + | Father | | Alive | | + +------+ + + | Maternal Grandfather | | Other | | + +------+ + + | Maternal Grandmother | | Other | | + +------+ + + | Mother | | Alive | | + +------+ + + | Paternal Grandfather | | | | + +------+ + + | Paternal Grandfather | | | | + +------+ + + | Paternal Grandmother | | | | + +------+ + + | Paternal Grandmother | | | | + +------+ + + | Sister | | Alive | | + +------+ + + Social History + + + [...] on file | | + + + Last Filed Vital Signs + + + + + | Vital Sign | Reading | Time Taken | Comments | + + + + + | Blood Pressure | 140/70 | 01/27/2019 11:56 AM | | | | | PDT | | + + + + + | Pulse | 80 | 01/27/2019 11:56 AM | | | | | PDT | | + + + + + | Temperature | 36.8 C (98.3 F) | 12/16/2018 11:22 AM | | | | | PDT | | + + + + + | Respiratory Rate | 16 | 10/09/2016 1:00 PM | | | | | PDT | | + + + + + | Oxygen Saturation | 96% | 12/16/2018 11:22 AM | | | | | PDT | | + + + + + | Inhaled Oxygen | - | - | | | Concentration | | | | + + + + + | Weight | 110.3 kg (243 lb 3.2 | 01/27/2019 11:56 AM | | | | oz) | PDT | | + + + + + | Height | 185.4 cm (6' 1") | 01/27/2019 11:56 AM | | | | | PDT | | + + + + + | Body Mass Index | 32.09 | 01/27/2019 11:56 AM | | | | | PDT | | + + + + + Plan of Treatment +--------+---------+ + + + | Date | Type | Specialty | Care Team | Description | +--------+---------+ + + + | 01/04/ | Office | Nephrology | Jaren Pelayo MD | | | 2020 | Visit | | [address] [facility] [address] | | | | | | [address] [place], [place] | | | | | | [address] | | | | | | | | +--------+---------+ + + + + + + + + | Health Maintenance | Due Date | Last | Comments | | | | Done | | + + + + + | Diabetic Eye Exam | | | | | | 8 | | | + + + + + | Diabetic Foot Exam | | | | | | 8 | | | + + + + + | Vaccine: | | | | | Dtap/Tdap/Td (1 - | 9 | | | | Tdap) | | | | + + + + + | Vaccine: | | 03/16/20 | | | Pneumococcal 19-64 | 5 | 14 | | | (2 of 3 - PCV13) | | | | + + + + + | Hemoglobin A1c | | 01/04/20 | | | Screening | 7 | 17 | | + + + + + | Adult Annual | | | | | Wellness Visit | 9 | | | + + + + + | Colorectal Cancer | | | | | Screening | 0 | | | | (Colonoscopy) | | | | + + + + + | Vaccine: Zoster (1 | | | | | of 2) | 0 | | | + + + + + | Vaccine: Influenza | | 01/29/20 | | | (#1) | 0 | 18, | | | | | 01/04/20 | | | | | 18, | | | | | 01/09/20 | | | | | 17, | | | | | Addition | | | | | al | | | | | history | | | | | exists | | + + + + + Results Not on filefrom Last 3 Months Insurance + +--------+ +--------+ +---------+--------+ | Payer | Benefi | Subscriber | Effect | Phone | Address | Type | | | t Plan | ID | roshan | | | | | | / | | Dates | | | | | | Group | | | | | | + +--------+ +--------+ +---------+--------+ | MEDICARE | MEDICA | [id number] | 11/22/19 | [phone] | | Medica | | | RE | | 09-Pre | 5 | | re | | | PART A | | sent | | | | | | AND B | | | | | | + +--------+ +--------+ +---------+--------+ | MEDICARE | MEDICA | [id number] | 11/22/19 | [phone] | | Medica | | | RE | | 09-Pre | 5 | | re | | | PART A | | sent | | | | | | AND B | | | | | | + +--------+ +--------+ +---------+--------+ | [employer] | MODA | [id number] | | [phone] | | Medica | | MEDICAID HMO | HEALTH | | 012-Pr | 1 | | id | | | MDCD | | esent | | | | | | [place] | | | | | | + +--------+ +--------+ +---------+--------+ | [employer] | MODA | [id number] | | [phone] | | Medica | | MEDICAID HMO | HEALTH | | 019-Pr | 1 | | id | | | MDCD | | esent | | | | | | [place] | | | | | | + +--------+ +--------+ +---------+--------+ + +--------+ +--------+ + + | Guarantor Name | Accoun | Relation to | Date | Phone | Billing Address | | | t Type | Patient | of | | | | | | | | | | + +--------+ +--------+ + + | Wilson Rogers | Person | Self | [birth year][address] | | [address] | | | al/Fam | | 1971 | [phone] | [place], [place] | | | audra | | | 2 (Home) | [address] | + +--------+ +--------+ + + | Wilson Rogers | Person | Self | [birth year] | | [address] | | | al/Fam | | 1971 | [phone] | [place], [place] | | | audra | | | 2 (Home) | [address] | + +--------+ +--------+ + + | Wilson Rogers | Third | Self | [address] | | [address] | | | Constitution Party | | 1971 | [phone] | [place], [place] | | | Liabil | | | 2 (Home) | [address] | | | ity | | | | | + +--------+ +--------+ + + Advance Directives + + + + + | Type | Date Recorded | Patient | Explanation | | | | Classification Counselor | | + + + + + | Power of | | | | | Piping Engineer | | | | + + + + + | Advance | 10/09/2016 11:09 | | | | Directive | AM | | | + + + + +
--- OUTSIDE RECORDS SUMMARY | ~2019-10-28 | XMS | Encounter Summary ---
Demographics + + + | Address | [address] | | | [place] [address] | + + + | Home Phone | | + + + | Preferred Language | Unknown | + + + | Marital Status | Single | + + + | Tenriism Affiliation | CHR | + + + [...] + + + | Krissy Rogers | BRADNE | [place] [address] | | + + + + + | Bay Rogers | ECON | Unknown | | + + + + + Care Team Providers + +------+ + | Care Furniture Repair Technician Name | Role | Phone | + +------+ + | Bola Chaudhry MD | PCP | | + +------+ + Reason for Visit + + + | Reason | Comments | + + + | OCT - Macula | ou | + + + Encounter Details +--------+ + + + + | Date | Type | Department | Care Team | Description | +--------+ + + + + | 01/25/ | Diagnostic | [facility] | | OCT - Macula (ou) | | 2017 | Visit | [place] | | | | | | Photography at | | | | | | [address] | | | | | | [place] [address] | | | | | | [facility] [place], [facility] | | | | | | floor [place], [place] | | | | | | [address] | | | +--------+ + + + [...] documented as of this encounter Progress Notes Sher Ken - 01/25/2017 2:30 PM PDTThe interpretation for the following study: JAN - Oanh - ou can be found on physician encounter on 01/25/2017. documented in this en counter Plan of Treatment +--------+---------+ + + + | Date | Type | Specialty | Care Team | Description | +--------+---------+ + + + | 01/26/ | Office | Ophthalmology | Maria Elena Lieberman, | | | 2019 | Visit | | [address] | | | | | | [address] | | | | | | [place], [place] | | | | | | [address] | | | | | | [phone] | | | | | | | | +--------+---------+ + + + documented as of this encounter Visit Diagnoses + + | Diagnosis | + + | 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
--- OUTSIDE RECORDS SUMMARY | ~2019-10-28 | XMS | Encounter Summary ---
Demographics + + + | Address | [address] | | | [place] [address] | + + + | Home Phone | | + + + | Preferred Language | Unknown | + + + | Marital Status | | + + + | Shinto Affiliation | 1013 | + + + | Race | Unknown | + + + | Ethnic Group | Unknown | + + + Author + + + | Author | [facility] | | | and [place] | + + + | Organization | [facility] | | | and [...] [address] | | | | | [address] | | + + + + + | Ellen Rogers | ECON | [address] | | | | | [place] | | + + + + + | Gisell Rogers | ECON | Unknown | | + + + + + Care Team Providers + +------+ + | Care Sand Mill Operator Facing Sand Name | Role | Phone | + +------+ + | Lizbet Sellers MD | PCP | | + +------+ + Encounter Details +--------+ + + + + | Date | Type | Department | Care Team | Description | +--------+ + + + + | 08/08/ | Orders Only | [facility] | Conversion | | | 2015 | | [facility] [place] | Transaction, | | | | | [address] | Provider Unknown | | | | | [address] [place], [place] | [phone] | | | | | [address] | | | | | | [phone] | | | +--------+ + + + [...] 2019 | Visit | | [address] [facility] | | | | | | [address] [place] | | | | | | [address] | | | | | | | | +--------+---------+ + + + documented as of this encounter Procedures + +--------+ + + + | Procedure Name | Priori | Date/Time | Associated Diagnosis | Comments | | | ty | | | | + +--------+ + + + | EXTERNAL LAB: | Routin | 08/09/2015 | | Results for this | | TACROLIMUS LEVEL, | e | 12:00 AM | | procedure are in the | | LC-MS/MS | | PDT | | results section. | + +--------+ + + + documented in this encounter Results External Lab: Tacrolimus Level, LC-MS/MS (08/09/2015 12:00 AM PDT) + + | Specimen | + + | | + + + + + | Narrative | Performed At | + + + | [facility] 4[facility] | EXTERNAL LAB | + + + + +---------+ + + | Performing | Address | City/State/Zipcode | Phone Number | | Organization | | | | + +---------+ + + | EXTERNAL LAB | | | | + +---------+ + + documented in this encounter Visit Diagnoses Not on filedocumented in this encounter"
--- OUTSIDE RECORDS SUMMARY | ~2019-10-28 | XMS | Encounter Summary ---
Demographics + + + | Address | [address] | | | [place] [address] | + + + | Home Phone | | + + + | Preferred Language | Unknown | + + + | Marital Status | Single | + + + | Temple Affiliation | CHR | + + + | Race | White | + + + | Ethnic Group | Not or | + + + Author + + + | Author | [facility] | + + + | Organization | [facility] | + + + | Address | Unknown | + + + | Phone | Unavailable | + + + Support + + + + + | Name | Relationship | Address | Phone | + + + + + | Krissy Rogers | BRADEN | [place] [address] | | + + + + + | Bay Rogers | ECON | Unknown | | + + + + + Care Team Providers + +------+ + | Care Barrel Rib Matting Machine Operator Name | Role | Phone | + +------+ + | Bola Chaudhry MD | PCP | | + +------+ + Encounter Details +--------+ + + + + | Date | Type | Department | Care Team | Description | +--------+ + + + + | 06/28/ | Ancillary | LAB [facility] | | | | 2012 | Orders | [facility] | | | | | | [address] | | | | | | [place] [place], | | | | | | [place] [address] | | | +--------+ + + + [...] | | 2019 | Visit | | [address] | | | | | | [address] | | | | | | [place], [place] | | | | | | [address] | | | | | | [phone] | | | | | | | | +--------+---------+ + + + documented as of this encounter Procedures + +--------+ + + + | Procedure Name | Priori | Date/Time | Associated Diagnosis | Comments | | | ty | | | | + +--------+ + + + | LIT FLOW HLA AB | Routin | 06/28/2012 | | | | QUICK SCREEN I/II | e | 12:13 PM | | | | | | PST | | | + +--------+ + + + documented in this encounter Results LIT FLOW HLA AB QUICK SCREEN I/II (06/28/2012 12:13 PM PST) + + | Specimen | + + | Blood - Blood | + + + + + + + | Performing | Address | City/State/Zipcode | Phone Number | | Organization | | | | + + + + + | [facility] - | [address] | [place] [address] | | | IMMUNOGENETICS/TRANS | [address] | | | | [facility] | | | | + + + + + documented in this encounter Visit Diagnoses Not on filedocumented in this encounter"
--- OUTSIDE RECORDS SUMMARY | ~2019-10-28 | XMS | Encounter Summary ---
Demographics + + + | Address | [address] | | | [place] [address] | + + + | Home Phone | | + + + | Preferred Language | Unknown | + + + | Marital Status | | + + + | Yarsanism Affiliation | 1013 | + + + | Race | Unknown | + + + | Ethnic Group | Unknown | + + + Author + + + | Author | [facility] | | | and [place] | + + + | Organization | [facility] | | | and [place] | + + + | Address | Unknown | + + + | Phone | Unavailable | + + + Support + + + + + | Name | Relationship | Address | Phone | + + + + + | Deysi oMntelongo | ECON | [address] | | | | | [place] | | | | | [address] | | + + + + + | Ellen Greer | ECON | [address] | | | | | [place] | | + + + + + | Gisell Greer | ECON | Unknown | | + + + + + Care Team Providers + +------+ + | Care Custom Shoemaker Name | Role | Phone | + +------+ + PCP | Unavailable | + +------+ + Encounter Details +--------+ + + + + | Date | Type | Department | Care Team | Description | +--------+ + + + + | 11/14/ | Hospital | [facility] | Jaren Pelayo MD | | | 2010 | Encounter | CONVERSION DEP [address] | [address] [facility] | | | | | [address] | [address] [place], [place] | | | | | [place], [place] | [address] | | | | | [address] | | | | | | [phone] | | | +--------+ + + + [...] 2019 | Visit | | [address] [place] | | | | | | [address] [place] | | | | | | [address] | | | | | | | | +--------+---------+ + + + documented as of this encounter Procedures + +--------+ + + + | Procedure Name | Priori | Date/Time | Associated Diagnosis | Comments | | | ty | | | | + +--------+ + + + | IR INJECTION | Routin | 11/14/2010 | | Results for this | | DIALYSIS CIRCUIT W | e | 5:10 PM | | procedure are in the | | ANGIOPLASTY | | PDT | | results section. | + +--------+ + + + | IR INJECTION | Routin | 11/14/2010 | | Results for this | | DIALYSIS CIRCUIT | e | 5:10 PM | | procedure are in the | | | | PDT | | results section. 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 Male. With chronic kidney disease stage V presents with | | | decreasing KT over V. EXAMINATION Right brachia cephalic | | | fistulogram and angioplasty of the focal stenosis in distal right | | | cephalic vein using 8 mm x 4 cm balloon catheter. MEDICATIONS: | | | Isovue-200 40 cc, Heparin 5000 units intravenous, Versed 1 mg | | | intravenous, fentanyl 50-mcg intravenous. Intra-procedure sedation | | | time 32 minutes. The radiation dose 30 mGray, Fluoroscopy time 0.2 | | | minutes. Appropriate physiologic monitoring, maintenance of | | | adequate conscious sedation and independent group home | | | supervision performed throughout the procedure. PROCEDURE: | | | Informed written consent obtained from the patient after explaining | | | the procedure, risks and alternatives. Patient understood the | | | discussion and expressed a wish to proceed. Patient was placed | | | supine on the x-ray table. The right arm prepped in the usual | | | sterile fashion. Right arm AV fistula was accessed using | | | micropuncture needle and exchanged for 4-Tunisian micropuncture sheath. | | | Initial fistula pressure was obtained and fistulogram obtained from | | | the right cubital fossa to the right atrium. Given the focal, | | | more than 70% concentric stenosis in the right cephalic vein, , I | | | decided to perform angioplasty of the venous lesion. 4-Tunisian | | | micropuncture sheath was exchanged for 6-Tunisian short sheath over a | | | 0.035, angled Glidewire. 8 mm x 4 cm balloon catheter was | | | advanced over the 0.035, angled Glidewire. Balloon was positioned | | | across stenosis in distal right cephalic vein and angioplasty was | | | performed. During inflation of the balloon across the venous | | | stenosis, Reflux evaluation of the arteriovenous anastomosis | [...] 1. Initial fistula | | | pressure 103/53 mm Hg, arterial pressure 148/76 mm Hg, final | | | fistula pressure 88/51 mm Hg. 2. Right brachia cephalic fistulogram | | | shows focal, more than 70% stenosis of the distal right cephalic | | | vein. Rest of cephalic vein, arteriovenous anastomosis, right | | | subclavian vein, right brachiocephalic vein and superior vena cava | | | are widely patent. 3. Successful angioplasty of the distal right | | | cephalic venous stenosis with no significant residual venous stenosis | | | post angioplasty. IMPRESSION: 1. Successful right brachia | | | cephalic fissure gram and angioplasty the focal, more than 70% | | | concentric distal right cephalic venous stenosis with the good | | | anatomic results. 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 Male. With chronic kidney disease stage V presents with | | decreasing KT over V. | | | | EXAMINATION | | | | Right brachia cephalic fistulogram and angioplasty of the focal stenosis in | | distal right cephalic vein using 8 mm x 4 cm balloon catheter. | | | | MEDICATIONS: | | | | | | Isovue-200 40 cc, Heparin 5000 units intravenous, Versed 1 mg intravenous, | | fentanyl 50-mcg intravenous. Intra-procedure sedation time 32 minutes. | | The radiation dose 30 mGray, Fluoroscopy time 0.2 minutes. Appropriate | | physiologic monitoring, maintenance of adequate conscious sedation and | | independent group home supervision performed throughout the procedure. | | | | PROCEDURE: | | | | Informed written consent obtained from the patient after explaining the | | procedure, risks and alternatives. Patient understood the discussion and | | expressed a wish to proceed. | | Patient was placed supine on the x-ray table. The right arm prepped in the | | usual sterile fashion. Right arm AV fistula was accessed using | | micropuncture needle and exchanged for 4-Tunisian micropuncture sheath. | | Initial fistula pressure was obtained and fistulogram obtained from the | | right cubital fossa to the right atrium. Given the focal, more than 70% | | concentric stenosis in the right cephalic vein, , I decided to perform | | angioplasty of the venous lesion. 4-Tunisian micropuncture sheath was | | exchanged for 6-Tunisian short sheath over a 0.035, angled Glidewire. 8 mm x | | 4 cm balloon catheter was advanced over the 0.035, angled Glidewire. | | Balloon was positioned across stenosis in distal right cephalic vein and | | angioplasty was performed. During inflation of the balloon across the | | venous stenosis, Reflux evaluation of the arteriovenous anastomosis | [...] FINDINGS | | 1. Initial fistula pressure 103/53 mm Hg, arterial pressure 148/76 mm | | Hg, final fistula pressure 88/51 mm Hg. | | 2. Right brachia cephalic fistulogram shows focal, more than 70% | | stenosis of the distal right cephalic vein. Rest of cephalic vein, | | arteriovenous anastomosis, right subclavian vein, right brachiocephalic | | vein and superior vena cava are widely patent. | | 3. Successful angioplasty of the distal right cephalic venous stenosis | | with no significant residual venous stenosis post angioplasty. | | | | IMPRESSION: | | 1. Successful right brachia cephalic fissure gram and angioplasty the | | focal, more than 70% concentric distal right cephalic venous stenosis with | | the good anatomic results. | | | | | + + IR Inj Dialysis Circuit (11/14/2010 5:10 PM PDT) + + | Specimen | + + | | + + + + + | Narrative | Performed At | + + + | [facility] [address] Ph: | | | Patient Name: WILSON GREER Date of : | | | 1970 Medical Record: [id number] Account: [id number] | | | Exam Date/Time: 11/14/2010 14:25 Ordering | | | Physician: JAREN PELAYO Order Detail: [id number] Exam Description: AV | | | FISTULAGRAM ACCESS | | | WILSON | | | W ZOEY AV FISTULAGRAM ACCESS 11/14/2010 2:25 PM HISTORY: 40 | | | years. Male. With chronic kidney disease stage V presents with | | | decreasing KT over V. EXAMINATION Right brachia cephalic | | | fistulogram and angioplasty of the focal stenosis in distal right | | | cephalic vein using 8 mm x 4 cm balloon catheter. MEDICATIONS: | | | Isovue-200 40 cc, Heparin 5000 units intravenous, Versed 1 mg | | | intravenous, fentanyl 50-mcg intravenous. Intra-procedure sedation | | | time 32 minutes. The radiation dose 30 mGray, Fluoroscopy time 0.2 | | | minutes. Appropriate physiologic monitoring, maintenance of | | | adequate conscious sedation and independent group home | | | supervision performed throughout the procedure. PROCEDURE: | | | Informed written consent obtained from the patient after explaining | | | the procedure, risks and alternatives. Patient understood the | | | discussion and expressed a wish to proceed. Patient was placed | | | supine on the x-ray table. The right arm prepped in the usual | | | sterile fashion. Right arm AV fistula was accessed using | | | micropuncture needle and exchanged for 4-Tunisian micropuncture sheath. | | | Initial fistula pressure was obtained and fistulogram obtained from | | | the right cubital fossa to the right atrium. Given the focal, | | | more than 70% concentric stenosis in the right cephalic vein, , I | | | decided to perform angioplasty of the venous lesion. 4-Tunisian | | | micropuncture sheath was exchanged for 6-Tunisian short sheath over a | | | 0.035, angled Glidewire. 8 mm x 4 cm balloon catheter was | | | advanced over the 0.035, angled Glidewire. Balloon was positioned | | | across stenosis in distal right cephalic vein and angioplasty was | | | performed. During inflation of the balloon across the venous | | | stenosis, Reflux evaluation of the arteriovenous anastomosis | [...] 1. Initial fistula | | | pressure 103/53 mm Hg, arterial pressure 148/76 mm Hg, final | | | fistula pressure 88/51 mm Hg. 2. Right brachia cephalic fistulogram | | | shows focal, more than 70% stenosis of the distal right cephalic | | | vein. Rest of cephalic vein, arteriovenous anastomosis, right | | | subclavian vein, right brachiocephalic vein and superior vena cava | | | are widely patent. 3. Successful angioplasty of the distal right | | | cephalic venous stenosis with no significant residual venous stenosis | | | post angioplasty. IMPRESSION: 1. Successful right brachia | | | cephalic fissure gram and angioplasty the focal, more than 70% | | | concentric distal right cephalic venous stenosis with the good | | | anatomic results. | | + + + + + | Procedure Note | + + | Billy Butler Conversion - 12/14/2018 4:25 PM PDT | | [facility] | | [facility] [address] | | | | | | Patient Name: WILSON GREER | | Date of : 1970 | | Medical Record: [id number] | | Account: [id number] | | | | | | Exam Date/Time: 11/14/2010 14:25 | | Ordering Physician: JAREN PELAYO | | Order Detail: [id number] | | Exam Description: AV FISTULAGRAM ACCESS | | | | WILSON GREER | | AV FISTULAGRAM ACCESS | | 11/14/2010 2:25 PM | | | | HISTORY: | | 40 years. Male. With chronic kidney disease stage V presents with | | decreasing KT over V. | | | | EXAMINATION | | | | Right brachia cephalic fistulogram and angioplasty of the focal stenosis in | | distal right cephalic vein using 8 mm x 4 cm balloon catheter. | | | | MEDICATIONS: | | | | | | Isovue-200 40 cc, Heparin 5000 units intravenous, Versed 1 mg intravenous, | | fentanyl 50-mcg intravenous. Intra-procedure sedation time 32 minutes. | | The radiation dose 30 mGray, Fluoroscopy time 0.2 minutes. Appropriate | | physiologic monitoring, maintenance of adequate conscious sedation and | | independent group home supervision performed throughout the procedure. | | | | PROCEDURE: | | | | Informed written consent obtained from the patient after explaining the | | procedure, risks and alternatives. Patient understood the discussion and | | expressed a wish to proceed. | | Patient was placed supine on the x-ray table. The right arm prepped in the | | usual sterile fashion. Right arm AV fistula was accessed using | | micropuncture needle and exchanged for 4-Tunisian micropuncture sheath. | | Initial fistula pressure was obtained and fistulogram obtained from the | | right cubital fossa to the right atrium. Given the focal, more than 70% | | concentric stenosis in the right cephalic vein, , I decided to perform | | angioplasty of the venous lesion. 4-Tunisian micropuncture sheath was | | exchanged for 6-Tunisian short sheath over a 0.035, angled Glidewire. 8 mm x | | 4 cm balloon catheter was advanced over the 0.035, angled Glidewire. | | Balloon was positioned across stenosis in distal right cephalic vein and | | angioplasty was performed. During inflation of the balloon across the | | venous stenosis, Reflux evaluation of the arteriovenous anastomosis | [...] FINDINGS | | 1. Initial fistula pressure 103/53 mm Hg, arterial pressure 148/76 mm | | Hg, final fistula pressure 88/51 mm Hg. | | 2. Right brachia cephalic fistulogram shows focal, more than 70% | | stenosis of the distal right cephalic vein. Rest of cephalic vein, | | arteriovenous anastomosis, right subclavian vein, right brachiocephalic | | vein and superior vena cava are widely patent. | | 3. Successful angioplasty of the distal right cephalic venous stenosis | | with no significant residual venous stenosis post angioplasty. | | | | IMPRESSION: | | 1. Successful right brachia cephalic fissure gram and angioplasty the | | focal, more than 70% concentric distal right cephalic venous stenosis with | | the good anatomic results. | | | | | + + documented in this encounter Visit Diagnoses Not on filedocumented in this encounter"
--- OUTSIDE RECORDS SUMMARY | ~2019-10-28 | XMS | Encounter Summary ---
Demographics + + + | Address | [address] | | | [place] [address] | + + + | Home Phone | | + + + | Preferred Language | Unknown | + + + | Marital Status | | + + + | Restoration Affiliation | 1013 | + + + | Race | Unknown | + + + | Ethnic Group | Unknown | + + + Author + + + | Author | [facility] | | | and [place] | + + + | Organization | [facility] | | | and [...] [address] | | | | | [address] | | + + + + + | Ellen Rogers | ECON | [address] | | | | | [place] | | + + + + + | Gisell Rogers | ECON | Unknown | | + + + + + Care Team Providers + +------+ + | Care Boat Joiner Helper Name | Role | Phone | + +------+ + | Lizbet Sellers MD | PCP | | + +------+ + Encounter Details +--------+ + + + + | Date | Type | Department | Care Team | Description | +--------+ + + + + | 05/10/ | Orders Only | [facility] | Conversion | | | 2018 | | NEPRHOLOGY [place] | Transaction, | | | | | [address] | Provider Unknown | | | | | [address] [place], [place] | [phone] | | | | | [address] | | | | | | [phone] | | | +--------+ + + + [...] 2020 | Visit | | [address] [facility] | | | | | | [address] [place] | | | | | | [address] | | | | | | | | +--------+---------+ + + + documented as of this encounter Procedures + +--------+ + + + | Procedure Name | Priori | Date/Time | Associated Diagnosis | Comments | | | ty | | | | + +--------+ + + + | LIPID PANEL | Routin | 05/10/2017 | | Results for this | | | e | 10:40 AM | | procedure are in the | | | | PST | | results section. | + +--------+ + + + documented in this encounter Results Lipid Panel (05/10/2017 10:40 AM PST) + +-------+ + + + | Component | Value | Ref Range | Performed | Pathologist | | | | | At | Signature | + +-------+ + + + | Cholesterol | 158 | mg/dL | EXTERNAL | | | | | | LAB | | + +-------+ + + + | Triglycerid | 117 | 30 - 150 mg/dL | EXTERNAL | | | es | | | LAB | | + +-------+ + + + | HDL | 50.7 | mg/dl | EXTERNAL | | | [...] +-------+ + + + | Chol/HDL | 3.1 | | EXTERNAL | | | Ratio [...]
--- OUTSIDE RECORDS SUMMARY | ~2019-10-28 | XMS | Encounter Summary ---
Demographics + + + | Address | [address] | | | [place] [address] | + + + | Home Phone | | + + + | Preferred Language | Unknown | + + + | Marital Status | Single | + + + | Zoroastrianism Affiliation | CHR | + + + [...] Krissy Rogers | BRADEN | [place] [address] | | + + + + + | Bay Rogers | ECON | Unknown | | + + + + + Care Team Providers + +------+ + | Care Construction Rep Name | Role | Phone | + [...] | Appointment | | 2008 | | [facility] | [address] | Cancelled By Patient | | | | Annabelle Shaheen [address] | Patrizia Manzano | (patient had a | | | | [address] | [place], [place] | stroke) | | | | [facility] | [address] | | | | | [place], [place] | [phone] | | | | | [address] | [...] Manzano | | | | | | [place], [place] | | | | | | [address] | | | | | | [phone] | | | | | | | | +--------+---------+ + + + documented as of this encounter Visit Diagnoses Not on filedocumented in this encounter"
--- OUTSIDE RECORDS SUMMARY | ~2019-10-28 | XMS | Encounter Summary ---
Demographics + + + | Address | [address] | | | [place] [address] | + + + | Home Phone | | + + + | Preferred Language | Unknown | + + + | Marital Status | | + + + | Quaker Affiliation | 1013 | + + + [...] [address] | | | | | [address] | | + + + + + | Ellen Rogers | ECON | [address] | | | | | [place] | | + + + + + | Gisell Rogers | ECON | Unknown | | + + + + + Care Team Providers + +------+ + | Care Oil Sprayer Name | Role | Phone | + +------+ + | Lizbet Sellers MD | PCP | | + +------+ + Encounter Details +--------+ + + + + | Date | Type | Department | Care Team | Description | +--------+ + + + + | 07/01/ | Orders Only | [facility] | Jaren Pelayo MD | | | 2015 | | NEPHROLOGY [place] | [address] [place] | | | | | [address] [place] | [address] [place], [place] | | | | | [address] [place], [place] | [id number] | | | | | [address] | | | | | | [phone] | | | +--------+ + + + [...] 2020 | Visit | | [address] [facility] | | | | | | [address] [place] | | | | | | [address] | | | | | | | | +--------+---------+ + + + documented as of this encounter Procedures + +--------+ + + + | Procedure Name | Priori | Date/Time | Associated Diagnosis | Comments | | | ty | | | | + +--------+ + + + | PARATHYROID HORMONE, | Routin | 07/02/2015 | | Results for this | | INTACT AND CALCIUM | e | 12:00 AM | | procedure are in the | | | | PST | | results section. | + +--------+ + + + | MAGNESIUM | Routin | 07/02/2015 | | Results for this | | | e | 12:00 AM | | procedure are in the | | | | PST | | results section. | + +--------+ + + + | RENAL FUNCTION PANEL | Routin | 07/02/2015 | | Results for this | | | e | 12:00 AM | | procedure are in the | | | | PST | | results section. | + +--------+ + + + documented in this encounter Results Parathyroid Hormone, Intact and Calcium (07/02/2015 12:00 AM PST) + +-------+ + + + | Component | Value | Ref Range | Performed | Pathologist | | | | | At | Signature | + +-------+ + + + | PTH Intact | 27.81 | 15 - 65 | EXTERNAL | | | | | | LAB | | + +-------+ + + + | Calcium | 8.9 | 8.4 - 10.2 | EXTERNAL | [...] | | + +---------+ + + Magnesium (07/02/2015 12:00 AM PST) + +---------+ + + [...] + +---------+ + + Renal Function Panel (07/02/2015 12:00 AM PST) + + + + + + | Component | Value | Ref Range | Performed | Pathologist | | | | | At | Signature | + + + + + + | Glucose, | 137 (A) | 70 - 100 mg/dL | EXTERNAL | | | Fasting | | | LAB | | + + + + + + | BUN | 25 (A) | 6 - 23 mg/dL | EXTERNAL | | | | | | LAB | | + + + + + + | Creatinine | 1.68 (A) | 0.60 - 1.35 | EXTERNAL [...] + + + + | Na | 135 | 132 - 143 | EXTERNAL | | | | | mmol/L | LAB | | + + + + + + | K | 4.2 | 3.6 - 5.1 | EXTERNAL | | | | | mmol/L | LAB | | + + + + + + | Cl | 99 | 95 - 112 mmol/L | EXTERNAL | | | | | | LAB | | + + + + + + | CO2 | 25 | 19 - 31 mmol/L | EXTERNAL | | | | | | LAB | | + + + + + + | Anion Gap | 15.2 | 7 - 21 mmol/L | EXTERNAL | | | | | | LAB | | + + + + + + | eGFR if not | | | EXTERNAL | | | | | | LAB | | | ARMENIAN | | | | | + + + + + + | Phosphorus, | 3.8 | 2.5 - 5.0 | EXTERNAL | | | Inorganic | | | LAB | | + + + + + + | BUN/Creatin | 14.9 | 6.0 - 28.6 | EXTERNAL | | | ine Ratio | | | LAB | | + + + + + + | Calcium | 8.9 | 8.4 - 10.2 | EXTERNAL | | | | | mg/dL | LAB | | + + + + + + | Estimated | 44 (A) | 60 - 140 mg/dL | [...]
--- OUTSIDE RECORDS SUMMARY | ~2019-10-28 | XMS | Encounter Summary ---
Demographics + + + | Address | [address] | | | [place] [address] | + + + | Home Phone [...] + + + | Author | [facility] | + + + | Organization | [facility] | + + + | Address | Unknown | + + + | Phone | Unavailable | + + + Support + + + + + | Name | Relationship | Address | Phone | + + + + + | Krissy Rogers | BRADEN | [place] [address] | | + + + + + | Bay Rogers | ECON | Unknown | | + + + + + Care Team Providers + +------+ + | Care Guest Services Ambassador Name | Role | Phone | + +------+ + | Jono Arambula | PCP | | + +------+ + Reason for Visit + + + | Reason | Comments | + + + | Therapeutic | | | Phelbotomy | | + + + Other (Routine) +--------+--------+ + + + + | Status | Reason | Specialty | Diagnoses / | Referred By | Referred To | | | | | Procedures | Contact | Contact | +--------+--------+ + + + + | Closed | | Community | Procedures | Carlos, | Myles | | | | Oncology | PHELBOTOMY | Ameya Abarca | Davis Nw | | | | | | MD | [address] | | | | [address] | | | | | | RENAL CLINIC | [place], [place] | | | | | | [address] | [address] | | | | | | [address] | Phone: | | | | | | [address] | [phone] | | | | | | [place], [place] | Fax: | | | | | | [address] | [phone] | | | | | | Phone: | | | | | | | [phone] | | | | | | | Fax: | | | | | | | [phone] | | +--------+--------+ + + + + Encounter Details +--------+ + + + + | Date | Type | Department | Care Team | Description | +--------+ + + + + | 01/20/ | [facility] | [facility] | Nw, [facility] [address] | Therapeutic | | 2012 | l Support | [place] [facility] | [address] | Phelbotomy | | | Staff | [address] | [place], [place] | | | | | Ave [place], [place] | [address] | | | | | [address] | | | | | | [phone] | | | +--------+ + + + [...] + + + | Blood Pressure | 109/69 | 01/20/2013 4:00 PM | | | | | PDT | | + + + + + | Pulse | 76 | 01/20/2013 4:00 PM | | | | | PDT | | + + + + + | Temperature | 36.2 C (97.2 F) | 01/20/2013 3:22 PM | | | | | PDT | | + + + + + | Respiratory Rate | 16 | 01/20/2013 4:00 PM | | | | | PDT | | + + + + + | Oxygen Saturation | - | - | | + + + + + | Inhaled Oxygen | - | - | | | Concentration | | | | + + + + + | Weight | - | - | | + + + + + | Height | - | - | | + + + + + | Body Mass Index | - | - | | + + + + + documented in this encounter Progress Notes Priscilla Estevez, MEGHNA - 01/20/2013 4:02 PM PDTPre BP: 119/77 Post BP: 108/69 Sue is here today for a therapeutic phlebotomy. Infusion plan parameters are to proceed with today s phlebotomy. Hgb from 's office =17.8. Left arm accessed with other: 19g s afety butterfly. Other: 300mls of blood was obtained per order.. Procedure completed witho ut complication. Needle removed intact and pressure dressing applied. Patient drank 8 ounces juice prior to leaving. Denies being dizzy or lightheaded. At discharge Alert & Oriented x3 and Ambulatory with assistive device cane, with caregiver. documented in this e ncounter Plan of Treatment +--------+---------+ + + + | Date | Type | Specialty | Care Team | Description | +--------+---------+ + + + | 01/26/ | Office | Ophthalmology | Maria Elena Lieberman, | | | 2019 | Visit | | MD [address] | | | | | | [address] | | | | | | [place], [place] | | | | | | [address] | | | | | | [phone] | | | | | | | | +--------+---------+ + + + documented as of this encounter Visit Diagnoses + + | Diagnosis | + + | Polycythemia, secondary - Primary | + + documented in this encounter"
--- OUTSIDE RECORDS SUMMARY | ~2019-10-28 | XMS | Encounter Summary ---
Demographics + + + | Address | [address] | | | [place] [address] | + + + | Home Phone | | + + + | Preferred Language | Unknown | + + + | Marital Status | | + + + | Jew Affiliation | 1013 | + + + | Race | Unknown | + + + | Ethnic Group | Unknown | + + + Author + + + | Author | [facility] | | | and [place] | + + + | Organization | [facility] | | | [...] [address] | | | | | [address] | | + + + + + | Ellen Rogers | ECON | [address] | | | | | [place] | | + + + + + | Gisell Rogers | ECON | Unknown | | + + + + + Care Team Providers + +------+ + | Care Photographic Specialist Name | Role | Phone | + +------+ + | Lizbet Sellers MD | PCP | | + +------+ + Encounter Details +--------+ + + + + | Date | Type | Department | Care Team | Description | +--------+ + + + + | 11/11/ | Orders Only | [facility] | Jaren Pealyo MD | | | 2013 | | NEPRHOLOGY [place] | [address] | | | | | [address] | [address] [place], [place] | | | | | [address] [place], [place] | [address] | | | | | [address] | | | | | | [phone] | | | +--------+ + + + [...] | Visit | | [address] | | | | | | [address] [place] | | | | | | [address] | | | | | | | | +--------+---------+ + + + documented as of this encounter Procedures + +--------+ + + + | Procedure Name | Priori | Date/Time | Associated Diagnosis | Comments | | | ty | | | | + +--------+ + + + | EXTERNAL LAB: | Routin | 01/15/2014 | | Results for this | | TACROLIMUS LEVEL, | e | 12:00 AM | | procedure are in the | | LC-MS/MS | | PDT | | results section. | + +--------+ + + + | EXTERNAL LAB: CBC | Routin | 01/15/2014 | | Results for this | | | e | 12:00 AM | | procedure are in the | | | | PDT | | results section. | + +--------+ + + + | URINALYSIS WITH | Routin | 01/15/2014 | | Results for this | | MICROSCOPIC WITH | e | 12:00 AM | | procedure are in the | | CULTURE IF INDICATED | | PDT | | results section. | + +--------+ + + + | LIPID PANEL | Routin | 01/15/2014 | | Results for this | | | e | 12:00 AM | | procedure are in the | | | | PDT | | results section. | + +--------+ + + + | ALT | Routin | 01/15/2014 | | Results for this | | | e | 12:00 AM | | procedure are in the | | | | PDT | | results section. | + +--------+ + + + | PROTEIN/CREATININE | Routin | 01/15/2014 | | Results for this | | RATIO, URINE | e | 12:00 AM | | procedure are in the | | | | PDT | | results section. | + +--------+ + + + | PROTEIN, URINE, | Routin | 01/15/2014 | | Results for this | | RANDOM | e | 12:00 AM | | procedure are in the | | | | PDT | | results section. | + +--------+ + + + | CREATININE, URINE, | Routin | 01/15/2014 | | Results for this | | RANDOM | e | 12:00 AM | | procedure are in the | | | | PDT | | results section. | + +--------+ + + + | AST | Routin | 01/15/2014 | | Results for this | | | e | 12:00 AM | | procedure are in the | | | | PDT | | results section. | + +--------+ + + + | MAGNESIUM | Routin | 01/15/2014 | | Results for this | | | e | 12:00 AM | | procedure are in the | | | | PDT | | results section. | + +--------+ + + + | CK TOTAL | Routin | 01/15/2014 | | Results for this | | | e | 12:00 AM | | procedure are in the | | | | PDT | | results section. | + +--------+ + + + | RENAL FUNCTION PANEL | Routin | 01/15/2014 | | Results for this | | | e | 12:00 AM | | procedure are in the | | | | PDT | | results section. | + +--------+ + + + | EXTERNAL LAB: | Routin | 11/11/2013 | | Results for this | | TACROLIMUS LEVEL, | e | 12:00 AM | | procedure are in the | | LC-MS/MS | | PDT | | results section. | + +--------+ + + + | EXTERNAL LAB: CBC | Routin | 11/11/2013 | | Results for this | | | e | 12:00 AM | | procedure are in the | | | | PDT | | results section. | + +--------+ + + + | URINALYSIS WITH | Routin | 11/11/2013 | | Results for this | | MICROSCOPIC WITH | e | 12:00 AM | | procedure are in the | | CULTURE IF INDICATED | | PDT | | results section. | + +--------+ + + + | LIPID PANEL | Routin | 11/11/2013 | | Results for this | | | e | 12:00 AM | | procedure are in the | | | | PDT | | results section. | + +--------+ + + + | ALT | Routin | 11/11/2013 | | Results for this | | | e | 12:00 AM | | procedure are in the | | | | PDT | | results section. | + +--------+ + + + | PARATHYROID HORMONE, | Routin | 11/11/2013 | | Results for this | | INTACT AND CALCIUM | e | 12:00 AM | | procedure are in the | | | | PDT | | results section. | + +--------+ + + + | PROTEIN/CREATININE | Routin | 11/11/2013 | | Results for this | | RATIO, URINE | e | 12:00 AM | | procedure are in the | | | | PDT | | results section. | + +--------+ + + + | PROTEIN, URINE, | Routin | 11/11/2013 | | Results for this | | RANDOM | e | 12:00 AM | | procedure are in the | | | | PDT | | results section. | + +--------+ + + + | CREATININE, URINE, | Routin | 11/11/2013 | | Results for this | | RANDOM | e | 12:00 AM | | procedure are in the | | | | PDT | | results section. | + +--------+ + + + | AST | Routin | 11/11/2013 | | Results for this | | | e | 12:00 AM | | procedure are in the | | | | PDT | | results section. | + +--------+ + + + | CK TOTAL | Routin | 11/11/2013 | | Results for this | | | e | 12:00 AM | | procedure are in the | | | | PDT | | results section. | + +--------+ + + + | RENAL FUNCTION PANEL | Routin | 11/11/2013 | | Results for this | | | e | 12:00 AM | | procedure are in the | | | | PDT | | results section. | + +--------+ + + + documented in this encounter Results Urinalysis with Microscopic with Culture if Indicated (01/15/2014 12:00 AM PDT) + + + + [...] + + + + | Total | 25 | Negative | EXTERNAL | | | Protein | [...] + + | Ketones | 5 | Negative | EXTERNAL | | | | | [...] + + External Lab: Tacrolimus Level, LC-MS/MS (01/15/2014 12:00 AM PDT) + +-------+ + + + | Component | Value | Ref Range | Performed | Pathologist | | | | | At | Signature | + +-------+ + + + | Tacrolimus | 7.2 | | EXTERNAL | | | Level [...] + +---------+ + + Protein/Creatinine Ratio, Urine (01/15/2014 12:00 AM PDT) + +-------+ + + + | Component | Value | Ref Range | Performed | Pathologist | | | | | At | Signature | + +-------+ + + + | Protein/Cre | 101.9 | 0 - 150 | EXTERNAL | [...] + +---------+ + + Protein, Urine, Random (01/15/2014 12:00 AM PDT) + +-------+ + + + | Component | Value | Ref Range | Performed | Pathologist | | | | | At | Signature | + +-------+ + + + | Protein, | 27 | 0.0 - 50.0 | EXTERNAL | [...] + +---------+ + + Creatinine, Urine, Random (01/15/2014 12:00 AM PDT) + +-------+ + + + | Component | Value | Ref Range | Performed | Pathologist | | | | | At | Signature | + +-------+ + + + | Creatinine, | 265 | | EXTERNAL | | | 24H [...] + +---------+ + + External Lab: CBC (01/15/2014 12:00 AM PDT) + +-------+ + + + | Component | Value | Ref Range | Performed | Pathologist | | | | | At | Signature | + +-------+ + + + | WBC | 7.2 | 4.5 - 11.0 10 | EXTERNAL | | | | | | LAB | | + +-------+ + + + | Non- | 5.48 | 4.3 - 5.7 10 | EXTERNAL | | | Red Blood | | | LAB | | | Cells | | | | | | Counted | | | | | + +-------+ + + + | Hemoglobin | 16.1 | 13.5 - 18.0 | EXTERNAL | | | | | g/dL | LAB | | + +-------+ + + + | Hematocrit, | 49.0 | 41 - 50 % | EXTERNAL | | | POC | | | LAB | | + +-------+ + + + | MCV | 89.3 | 81 - 99 fL | EXTERNAL | | | | | | LAB | | + +-------+ + + + | MCH | 29 | 27 - 33 pg | EXTERNAL | | | | | | LAB | | + +-------+ + + + | MCHC | 33 | 30 - 36 g/dL | EXTERNAL | | | | | | LAB | | + +-------+ + + + | Platelet | 394 | 140 - 440 K/ L | EXTERNAL | | | Count | | | LAB | | | Plasma | | | | | + +-------+ + + + | RDW-CV | 13.9 [...] + + + | % Segmented | 63 | 39 - 80 % | EXTERNAL | | | | | | LAB | | | Neutrophils | | | | | + +-------+ + + + | % | 24 | 24 - 44 % | EXTERNAL | | | Lymphocytes | | | LAB | | + +-------+ + + + | % Monocytes | 11 | 0 - 12 % | EXTERNAL | | | | | | LAB | | + +-------+ + + + | % | 2 [...] | | + +---------+ + + ALT (01/15/2014 12:00 AM PDT) + +-------+ + + + | Component | Value | Ref Range | Performed | Pathologist | | | | | At | Signature | + +-------+ + + + | ALT | 16 | 7 - 52 U/L | EXTERNAL [...] | | + +---------+ + + AST (01/15/2014 12:00 AM PDT) + +-------+ + + + | Component | Value | Ref Range | Performed | Pathologist | | | | | At | Signature | + +-------+ + + + | AST | 14 | 13 - 39 U/L | EXTERNAL [...] | | + +---------+ + + Magnesium (01/15/2014 12:00 AM PDT) + +---------+ + + [...] | + +---------+ + + CK Total (01/15/2014 12:00 AM PDT) + +-------+ + + + | Component | Value | Ref Range | Performed | Pathologist | | | | | At | Signature | + +-------+ + + + | CK, Total | 132 | 24 - 195 U/L | EXTERNAL [...] + +---------+ + + Renal Function Panel (01/15/2014 12:00 AM PDT) + + + + + + | Component | Value | Ref Range | Performed | Pathologist | | | | | At | Signature | + + + + + + | Glucose, | 121 (A) | 70 - 100 mg/dL | EXTERNAL | | | Fasting | | | LAB | | + + + + + + | BUN | 29 (A) | 6 - 23 mg/dL | EXTERNAL | | | | | | LAB | | + + + + + + | Creatinine | 1.70 (A) | 0.60 - 1.35 | EXTERNAL [...] + + + + | Cl | 97 | 95 - 112 mmol/L | EXTERNAL | | | | | | LAB | | + + + + + + | CO2 | 27 | 19 - 31 mmol/L | EXTERNAL | | | | | | LAB | | + + + + + + | Anion Gap | 17.2 | 7 - 21 mmol/L | EXTERNAL | | | | | | LAB | | + + + + + + | eGFR if not | | | EXTERNAL | | | | | | LAB | | | CANADIAN | | | | | + + + + + + | Phosphorus, | 4.8 | 2.5 - 5.0 | EXTERNAL | | | Inorganic | | | LAB | | + + + + + + | BUN/Creatin | 17.0 | 6.0 - 28.6 | EXTERNAL | | | ine Ratio | | | LAB | | + + + + + + | Calcium | 9.1 | 8.4 - 10.2 | EXTERNAL | | | | | mg/dL | LAB | | + + + + + + | Estimated | 44 | mg/dL | EXTERNAL | | | [...] | + +---------+ + + Lipid Panel (01/15/2014 12:00 AM PDT) + +---------+ + + + | Component | Value | Ref Range | Performed | Pathologist | | | | | At | Signature | + +---------+ + + + | Cholesterol | 169 | 200 mg/dL | EXTERNAL | | | | | | LAB | | + +---------+ + + + | Triglycerid | 104 | 30 - 150 mg/dL | EXTERNAL | | | es | | | LAB | | + +---------+ + + + | HDL | 43.6 | 40 mg/dl | EXTERNAL | | | | | | LAB | | + +---------+ + + + | LDL, | 105 (A) | 100 mg/dL | EXTERNAL | | | Calculated | | | LAB | | + +---------+ + + + | LDl/HDL | | | EXTERNAL | | | Ratio | | | LAB | | + +---------+ + + + | Chol/HDL | 3.9 | 4.97 | EXTERNAL | | | Ratio | | | LAB | | + +---------+ + + + | VLDL | 21 | 4 - 40 mg/dL | EXTERNAL | | | | | | LAB | | + +---------+ + + + | Non HDL | 125 | 130 | EXTERNAL | | | [...] Urinalysis with Microscopic with Culture if Indicated (11/11/2013 12:00 AM PDT) + + + + [...] + + + + | Leukocyte | 1+Comment: 25 | | EXTERNAL | | | Esterase, [...] + + + + | Total | 25 | | EXTERNAL | | | Protein [...] + + External Lab: Tacrolimus Level, LC-MS/MS (11/11/2013 12:00 AM PDT) + +-------+ + + + | Component | Value | Ref Range | Performed | Pathologist | | | | | At | Signature | + +-------+ + + + | Tacrolimus | 6.9 | | EXTERNAL | | | Level [...] + + Parathyroid Hormone, Intact and Calcium (11/11/2013 12:00 AM PDT) + +-------+ + + + | Component | Value | Ref Range | Performed | Pathologist | | | | | At | Signature | + +-------+ + + + | PTH Intact | 95.06 | | EXTERNAL | | | | | | LAB | | + +-------+ + + + | Calcium | 8.7 | | EXTERNAL | | | | [...] + +---------+ + + Protein/Creatinine Ratio, Urine (11/11/2013 12:00 AM PDT) + +-------+ + + + | Component | Value | Ref Range | Performed | Pathologist | | | | | At | Signature | + +-------+ + + + | Protein/Cre | 65.6 | | EXTERNAL | | | at [...] + +---------+ + + Protein, Urine, Random (11/11/2013 12:00 AM PDT) + +-------+ + + + | Component | Value | Ref Range | Performed | Pathologist | | | | | At | Signature | + +-------+ + + + | Protein, | 30 | | EXTERNAL | | | Urine [...] + +---------+ + + Creatinine, Urine, Random (11/11/2013 12:00 AM PDT) + +-------+ + + + | Component | Value | Ref Range | Performed | Pathologist | | | | | At | Signature | + +-------+ + + + | Creatinine, | 457 | | EXTERNAL | | | 24H [...] + +---------+ + + External Lab: CBC (11/11/2013 12:00 AM PDT) + +-------+ + + + | Component | Value | Ref Range | Performed | Pathologist | | | | | At | Signature | + +-------+ + + + | WBC | 7.8 | 10 | EXTERNAL | | | | | | LAB | | + +-------+ + + + | Non- | 5.17 | 10 | EXTERNAL | | | Red Blood | | | LAB | | | Cells | | | | | | Counted | | | | | + +-------+ + + + | Hemoglobin | 15.9 | g/dL | EXTERNAL | | | | | | LAB | | + +-------+ + + + | Hematocrit, | 47.1 | % | EXTERNAL | | | POC | | | LAB | | + +-------+ + + + | MCV | 91.1 | fL | EXTERNAL | | | | | | LAB | | + +-------+ + + + | MCH | 31 | pg | EXTERNAL | | | | | | LAB | | + +-------+ + + + | MCHC | 34 | g/dL | EXTERNAL | | | | | | LAB | | + +-------+ + + + | Platelet | 512 | K/ L | EXTERNAL | | | Count | | | LAB | | | Plasma | | | | | + +-------+ + + + | RDW-CV | 14.3 | % | EXTERNAL | | | [...] + + + | % Segmented | 74.4 | % | EXTERNAL | | | | | | LAB | | | Neutrophils | | | | | + +-------+ + + + | % | 9.7 | % | EXTERNAL | | | Lymphocytes | | | LAB | | + +-------+ + + + | % Monocytes | 13.7 | % | EXTERNAL | | | | | | LAB | | + +-------+ + + + | % | 1.2 | % | EXTERNAL | | | Eosinophils | | | LAB | | + +-------+ + + + | % Basophils | 1.0 | % | EXTERNAL | | | [...] | | + +---------+ + + ALT (11/11/2013 12:00 AM PDT) + +-------+ + + + | Component | Value | Ref Range | Performed | Pathologist | | | | | At | Signature | + +-------+ + + + | ALT | 31 | U/L | EXTERNAL | | | [...] | | + +---------+ + + AST (11/11/2013 12:00 AM PDT) + +-------+ + + + | Component | Value | Ref Range | Performed | Pathologist | | | | | At | Signature | + +-------+ + + + | AST | 24 | U/L | EXTERNAL | [...] | + +---------+ + + CK Total (11/11/2013 12:00 AM PDT) + +-------+ + + + | Component | Value | Ref Range | Performed | Pathologist | | | | | At | Signature | + +-------+ + + + | CK, Total | 127 | U/L | EXTERNAL | | | [...] + +---------+ + + Renal Function Panel (11/11/2013 12:00 AM PDT) + +-------+ + + + | Component | Value | Ref Range | Performed | Pathologist | | | | | At | Signature | + +-------+ + + + | Glucose, | 123 | mg/dL | EXTERNAL | | | Fasting | | | LAB | | + +-------+ + + + | BUN | 19.5 | mg/dL | EXTERNAL | | | | | | LAB | | + +-------+ + + + | Creatinine | 1.95 | mg/dL | EXTERNAL | | | | | | LAB | | + +-------+ + + + | PHOSPHORUS | | mg/dL | EXTERNAL | | | | | | LAB | | + +-------+ + + + | Albumin | 4.2 | | EXTERNAL | | | | | | LAB | | + +-------+ + + + | Na | 135 | mmol/L | EXTERNAL | | | | | | LAB | | + +-------+ + + + | K | 4.5 | mmol/L | EXTERNAL | | | | | | LAB | | + +-------+ + + + | Cl | 99 | mmol/L | EXTERNAL | | | | | | LAB | | + +-------+ + + + | CO2 | 25 | mmol/L | EXTERNAL | | | | | | LAB | | + +-------+ + + + | Anion Gap | 15.5 | mmol/L | EXTERNAL | | | | | | LAB | | + +-------+ + + + | eGFR if not | | | EXTERNAL | | | | | | LAB | | | CANADIAN | | | | | + +-------+ + + + | Phosphorus, | 4.6 | | EXTERNAL | | | Inorganic | | | LAB | | + +-------+ + + + | BUN/Creatin | 19.5 | | EXTERNAL | | | ine Ratio | | | LAB | | + +-------+ + + + | Calcium | 8.7 | mg/dL | EXTERNAL | | | | | | LAB | | + +-------+ + + + | Estimated | 38 | mg/dL | EXTERNAL | | | [...] | + +---------+ + + Lipid Panel (11/11/2013 12:00 AM PDT) + +-------+ + + + | Component | Value | Ref Range | Performed | Pathologist | | | | | At | Signature | + +-------+ + + + | Cholesterol | 166 | mg/dL | EXTERNAL | | | | | | LAB | | + +-------+ + + + | Triglycerid | 97 | mg/dL | EXTERNAL | | | es | | | LAB | | + +-------+ + + + | HDL | 34.2 | mg/dl | EXTERNAL | | | | | | LAB | | + +-------+ + + + | LDL, | 112 | mg/dL | EXTERNAL | | | Calculated | | | LAB | | + +-------+ + + + | LDl/HDL | | | EXTERNAL | | | Ratio | | | LAB | | + +-------+ + + + | Chol/HDL | 4.9 | | EXTERNAL | | | Ratio | | | LAB | | + +-------+ + + + | VLDL | 19 | mg/dL | EXTERNAL | | | | | | LAB | | + +-------+ + + + | Non HDL | 132 | | EXTERNAL | | | Chol. [...]
--- OUTSIDE RECORDS SUMMARY | ~2019-10-28 | XMS | Encounter Summary ---
Demographics + + + | Address | [address] | | | [place] [address] | + + + | Home Phone | | + + + | Preferred Language | Unknown | + + + | Marital Status | Single | + + + | Religion Affiliation | CHR | + + + | Race | White | + + + | Ethnic Group | Not or | + + + Author + + + | Author | [facility] | + + + | Organization | [facility] | + + + | Address | Unknown | + + + | Phone | Unavailable | + + + Support + + + + + | Name | Relationship | Address | Phone | + + + + + | Krissy Rogers | BRADEN | [place] [address] | | + + + + + | Bay Rogers | ECON | Unknown | | + + + + + Care Team Providers + +------+ + | Care [employer] Teacher Name | Role | Phone | + [...] | | | | | | | [address] | | | | | | | [address] | | | | | | | [address] | | | | | | | [place], [place] | | | | | | | [address] | | | | | | | Phone: | | | | | | | [phone] | | | | | | | Fax: | | | | | | | [phone] | +--------+--------+ + + + + Encounter Details +--------+---------+ + + + | Date | Type | Department | Care Team | Description | +--------+---------+ + + + | 01/28/ | Office | [facility] | Maria Elena Balbuena, | Proliferative | | 2019 | Visit | [facility] at | [address] | diabetic retinopathy | | | | Annabelle Jamison [address] | of both eyes | | | | [address] | [place], [place] | without macular | | | | [facility] | [address] | edema associated | | | | floor [place], [place] | [phone] | with type 2 diabetes | | [...] aware of any v ision problems. The field crop farmer dilates (enlarges) your pupil and looks inside the eye w ith special equipment and lenses. If your field crop farmer finds diabetic retinopathy, he or she may [...] advised by your primary care physician or life science research assistant. If high blood pressure and kidney problems [...] central vision. Vitrectomy In advanced PDR, your field crop farmer may recommend a vitrectomy. During this microsurgical procedure, which is performed in the operating room, the blood-filled vitreous is removed a nd replaced with a clear solution. Your field crop farmer may wait for several months to see [...] of your blood sugar and visiting your field crop farmer regularly. When to schedule an examination People [...] for several days when you see your field crop farmer. Eyeglasses that work well when blood sugar [...] might be different f rom the original. [facility] Progress Note 01/28/2019 48 y.o. male Proliferative [...] 5 mg by mouth once daily. ZOLEDRONIC [id number] IV Inject into the vein (IV). Reviewed: [...] [address] | | | | | | [place], [place] | | | | | | [address] | | | | | | [phone] | | | | | | | [...] | | | | | | mellitus ([facility]) | | + +--------+ + + + documented in this encounter Results OCT, RETINA (01/28/2019 1:43 PM PDT) + + + | Narrative | Performed At | + + + | Hatchery [employer] | [facility] | | [facility]: [...] [facility] | [address] | [place] [address] | | | [place] | [address]. 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
--- OUTSIDE RECORDS SUMMARY | ~2019-10-28 | XMS | Encounter Summary ---
Demographics + + + | Address | [address] | | | [place] [address] | + + + | Home Phone | | + + + | Preferred Language | Unknown | + + + | Marital Status | | + + + | Confucianism Affiliation | 1013 | + + + | Race | Unknown | + + + | Ethnic Group | Unknown | + + + Author + + + | Author | [facility] | | | and [place] | + + + | Organization | [facility] | | | [...] [address] | | | | | [address] | | + + + + + | Ellen Rogers | ECON | [address] | | | | | [place] | | + + + + + | Gisell Rogers | ECON | Unknown | | + + + + + Care Team Providers + +------+ + | Care Nursing Center Tutor Name | Role | Phone | + +------+ + | Lizbet Sellers MD | PCP | | + +------+ + Encounter Details +--------+ + + + + | Date | Type | Department | Care Team | Description | +--------+ + + + + | 08/26/ | Orders Only | [facility] | Jaren Pelayo MD | | | 2013 | | NEPHROLOGY [place] | [address] [place] | | | | | [address] [place] | [address] [place], [place] | | | | | [address] [place], [place] | [id number] | | | | | [address] | | | | | | [phone] | | | +--------+ + + + [...] 2020 | Visit | | [address] [facility] | | | | | | [address] [place] | | | | | | [address] | | | | | | | | +--------+---------+ + + + documented as of this encounter Procedures + +--------+ + + + | Procedure Name | Priori | Date/Time | Associated Diagnosis | Comments | | | ty | | | | + +--------+ + + + | EXTERNAL LAB: | Routin | 08/26/2013 | | Results for this | | TACROLIMUS LEVEL, | e | 12:00 AM | | procedure are in the | | LC-MS/MS | | PDT | | results section. | + +--------+ + + + | EXTERNAL LAB: CBC | Routin | 08/26/2013 | | Results for this | | | e | 12:00 AM | | procedure are in the | | | | PDT | | results section. | + +--------+ + + + | URINALYSIS WITH | Routin | 08/26/2013 | | Results for this | | MICROSCOPIC WITH | e | 12:00 AM | | procedure are in the | | CULTURE IF INDICATED | | PDT | | results section. | + +--------+ + + + | RENAL FUNCTION PANEL | Routin | 08/26/2013 | | Results for this | | | e | 12:00 AM | | procedure are in the | | | | PDT | | results section. | + +--------+ + + + | EXTERNAL LAB: CBC | Routin | 08/11/2013 | | Results for this | | | e | 12:00 AM | | procedure are in the | | | | PDT | | results section. | + +--------+ + + + documented in this encounter Results Urinalysis with Microscopic with Culture if Indicated (08/26/2013 12:00 AM PDT) + + + + [...] + + + | Spec Grav, | 1.019 | | EXTERNAL | | | Fluid [...] + + External Lab: Tacrolimus Level, LC-MS/MS (08/26/2013 12:00 AM PDT) + +-------+ + + + | Component | Value | Ref Range | Performed | Pathologist | | | | | At | Signature | + +-------+ + + + | Tacrolimus | 4.4 | | EXTERNAL | | | Level [...] + +---------+ + + External Lab: CBC (08/26/2013 12:00 AM PDT) + +-------+ + + + | Component | Value | Ref Range | Performed | Pathologist | | | | | At | Signature | + +-------+ + + + | WBC | 7.3 | 10 | EXTERNAL | | | | | | LAB | | + +-------+ + + + | Non- | 5.19 | 10 | EXTERNAL | | | Red Blood | | | LAB | | | Cells | | | | | | Counted | | | | | + +-------+ + + + | Hemoglobin | 16.0 | g/dL | EXTERNAL | | | | | | LAB | | + +-------+ + + + | Hematocrit, | 47.6 | % | EXTERNAL | | | POC | | | LAB | | + +-------+ + + + | MCV | 91.6 | fL | EXTERNAL | | | [...] +-------+ + + + | Platelet | 393 | K/ L | EXTERNAL | | | Count | | | LAB | | | Plasma | | | | | + +-------+ + + + | RDW-CV | 13.6 | % | EXTERNAL | | | [...] + + + | % Segmented | 74.6 | % | EXTERNAL | | | | | | LAB | | | Neutrophils | | | | | + +-------+ + + + | % | 9.3 | % | EXTERNAL | | | Lymphocytes | | | LAB | | + +-------+ + + + | % Monocytes | 12.1 | % | EXTERNAL | | | | | | LAB | | + +-------+ + + + | % | 3.1 | % | EXTERNAL | | | Eosinophils | | | LAB | | + +-------+ + + + | % Basophils | 0.9 | % | EXTERNAL | [...] + +---------+ + + Renal Function Panel (08/26/2013 12:00 AM PDT) + +-------+ + + + | Component | Value | Ref Range | Performed | Pathologist | | | | | At | Signature | + +-------+ + + + | Glucose, | 226 | mg/dL | EXTERNAL | | | Fasting | | | LAB | | + +-------+ + + + | BUN | 20 | mg/dL | EXTERNAL | | | | | | LAB | | + +-------+ + + + | Creatinine | 1.22 | mg/dL | EXTERNAL | | | | | | LAB | | + +-------+ + + + | PHOSPHORUS | | mg/dL | EXTERNAL | | | | | | LAB | | + +-------+ + + + | Albumin | 4.2 | | EXTERNAL | | | | | | LAB | | + +-------+ + + + | Na | 132 | mmol/L | EXTERNAL | | | | | | LAB | | + +-------+ + + + | K | 4.1 | mmol/L | EXTERNAL | | | | | | LAB | | + +-------+ + + + | Cl | 99 | mmol/L | EXTERNAL | | | | | | LAB | | + +-------+ + + + | CO2 | 23 | mmol/L | EXTERNAL | | | | | | LAB | | + +-------+ + + + | Anion Gap | 14.1 | mmol/L | EXTERNAL | | | | | | LAB | | + +-------+ + + + | eGFR if not | | | EXTERNAL | | | | | | LAB | | | [place]ET[place]ESE | | | | | + +-------+ + + + | Phosphorus, | 3.3 | | EXTERNAL | | | Inorganic | | | LAB | | + +-------+ + + + | BUN/Creatin | 16.4 | | EXTERNAL | | | ine Ratio | | | LAB | | + +-------+ + + + | Calcium | 8.6 | mg/dL | EXTERNAL | | | | | | LAB | | + +-------+ + + + | Estimated | 65 [...] + +---------+ + + External Lab: CBC (08/11/2013 12:00 AM PDT) + +-------+ + + + | Component | Value | Ref Range | Performed | Pathologist | | | | | At | Signature | + +-------+ + + + | WBC | 8.8 | 10 | EXTERNAL | | | | | | LAB | | + +-------+ + + + | Non- | 5.41 | 10 | EXTERNAL | | | Red Blood | | | LAB | | | Cells | | | | | | Counted | | | | | + +-------+ + + + | Hemoglobin | 16.7 | g/dL | EXTERNAL | | | | | | LAB | | + +-------+ + + + | Hematocrit, | 50.4 | % | EXTERNAL | | | POC | | | LAB | | + +-------+ + + + | MCV | 93.2 | fL | EXTERNAL | | | [...] +-------+ + + + | Platelet | 382 | K/ L | EXTERNAL | | | Count | | | LAB | | | Plasma | | | | | + +-------+ + + + | RDW-CV | 14.1 | % | EXTERNAL | | | [...] + + + | % Segmented | 76.6 | % | EXTERNAL | | | | | | LAB | | | Neutrophils | | | | | + +-------+ + + + | % | 8.5 | % | EXTERNAL | | | Lymphocytes | | | LAB | | + +-------+ + + + | % Monocytes | 12.6 | % | EXTERNAL | | | | | | LAB | | + +-------+ + + + | % | 1.5 | % | EXTERNAL | | | Eosinophils | | | LAB | | + +-------+ + + + | % Basophils | 0.8 | % | EXTERNAL | | | [...]
--- OUTSIDE RECORDS SUMMARY | ~2019-10-28 | XMS | Encounter Summary ---
Demographics + + + | Address | [address] | | | [place] [address] | + + + | Home Phone | | + + + | Preferred Language | Unknown | + + + | Marital Status | Single | + + + | Nondenominational Affiliation | CHR | + + + [...] Krissy Rogers | BRADEN | [place] [address] | | + + + + + | Bay Rogers | ECON | Unknown | | + + + + + Care Team Providers + +------+ + | Care Integrated Circuits Inspector Name | Role | Phone | + [...] 12/01/ | Office | [facility] | Maria Elena Lieberman, | DM Eye Manif Type II | | 2008 | Visit | [facility] | MD [address] | ([facility]); | | | | [facility] [address] | Proliferative | | | | [address] | [place], [place] | Diabetic Retinopathy | | | | [facility], [facility] | [address] | ([facility]); Traction | | | | floor [place], [place] | [phone] | Detachment of Retina | | | | [address] | | [...] Progress Notes Maria Elena Lieberman MD - 12/01/2008 1:46 PM PDTFormatting of this note might be different f rom the original. Retina Division Progress Note: Post OP Note CC: Postop visit HPI: Wilson Rogers is a 38 y.o. male status post PPV/ROSO in LE on 10/21/2008. Vision is decrea sed but has no pain. 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 Allergies: Penicillins and Lisinopril Meds: PF qhs LE Examination: 10/22/2008 Va sc Va cc PH IOP 9:09 AM Left Eye CF@1' NT ni 15 12/01/2008 Va sc IOP 1:53 PM Right Eye CF@3" 15 Left Eye CFbriefly at face 13 Alert and oriented times 4. Left eye dilated only with Mydriacyl and Neosynephrine @ 1:53 PM by Rekha Robles Chart Notes Reviewed SLE OS Lids Appropriate edema Conjunctiva Well healed Cornea clear AC D/q Iris dilated Lens 3+ psc, 1+ NS Ophthalmoscopy of the left eye disclosed retina that is detached. View limited due to patrick ract. The retinectomy edges appear intact but the macula itself appears elevated OCT - as above the macula is elevated though the edges of the retinectomy are flat and ther e is no ERM. IMPRESSION: Post op status post PPV/ROSO OS on 10/21/2008 - retina redetached Limited visualization due to cataract. PLAN: Plan PPV/PPL/EL/Oil or gas OS. PARQ. Sami Celis MD, PhD, Vitreoretinal Fellow, [facility], 12/01/2008 Maria Elena Lieberman MD I am familiar [...] | | 2019 | Visit | | [address] | | | | | | [address] | | | | | | [place], [place] | | | | | | [address] | | | | | | [phone] | | | | | | | | +--------+---------+ + + + + + +--------+ + + | Name | Type | Priori | Associated Diagnoses | Order Schedule | | | | ty | | | + + +--------+ + + | OPTICAL COHERENCE | Procedures | Routin | DM Eye Manif Type | Expected: | | TOMOGRAPHY | | e | II ([facility]) | 12/01/2008, Expires: | | | | | Proliferative | 01/30/2009 | | | | | Diabetic Retinopathy | | | | | | (HCC) Traction | | | | | | Detachment of Retina | | + + +--------+ + + | BIOMETRIC RULING | Procedures | Routin | DM Eye Manif Type | Expected: | | | | e | II ([facility]) | 12/01/2008, Expires: | | | | | Proliferative | 01/30/2009 | | | | | Diabetic Retinopathy | | | | | | ([facility]) Traction | | | | | | Detachment of Retina | | + + +--------+ + + | OK OPTHALMIC DX | Procedures | Routin | DM Eye Manif Type | Ordered: 12/09/2008 | | IMAGING | | e | II ([facility]) | | | | | | Proliferative | | | | | | Diabetic Retinopathy | | | | | | ([facility]) Traction | | | | | | Detachment of Retina | | + + +--------+ + + documented as of this encounter Visit Diagnoses + + | Diagnosis | + + | Type II or unspecified type diabetes mellitus with ophthalmic manifestations, not | | stated as uncontrolled(250.50) ([facility]) Type II or unspecified type diabetes mellitus with | | ophthalmic manifestations, not stated as uncontrolled | + + | Proliferative diabetic retinopathy(362.02) Proliferative diabetic retinopathy | + + | Traction detachment of retina | + + documented in this encounter
--- OUTSIDE RECORDS SUMMARY | ~2019-10-28 | XMS | Encounter Summary ---
Demographics + + + | Address | [address] | | | [place] [address] | + + + | Home Phone | | + + + | Preferred Language | Unknown | + + + | Marital Status | | + + + | Oriental Orthodox Affiliation | 1013 | + + + | Race | Unknown | + + + | Ethnic Group | Unknown | + + + Author + + + | Author | [facility] | | | and [place] | + + + | Organization | [facility] | | | and [place] | + + + | Address | Unknown | + + + | Phone | Unavailable | + + + Support + + + + + | Name | Relationship | Address | Phone | + + + + + | Deysi Montelongo | ECON | [address] | | | | | [facility] | | | | | [address] | | + + + + + | Ellen Rogers | ECON | [address] | | | | | [place] | | + + + + + | Gisell Rogers | ECON | Unknown | | + + + + + Care Team Providers + +------+ + | Care Milk Sampler Name | Role | Phone | + +------+ + | David Estrada MD | PCP | Unavailable | + +------+ + Reason for Visit +--------+--------+ + | Reason | Onset | Comments | | | Date | | +--------+--------+ + | Other | 07/29/ | | | | 2012 | | +--------+--------+ + Encounter Details +--------+ + + + + | Date | Type | Department | Care Team | Description | +--------+ + + + + | 07/29/ | Telephone | [facility] [place] | [facility], | [facility] | | 2012 | | GASTROENTEROLOGY | NAWAF Egan [address] | | | | | [address] [place] | [address] [facility] [address] | | | | | [address] [place] [address] | [place] | | | | | [address] | [address] | | | | | [phone] | | | +--------+ + + + [...] Notes Telephone Encounter - Radha Bejarano - 07/30/2012 11:43 AM PDTSpoke to Audra, gave her Viki's message. Told her we just got the referral to Dr Cabrera so that appointment will be co madyson up and maybe she can find out more then. She verbalized understanding.Electronically si gned by Radha Bejarano at 07/30/2012 11:45 AM PDTTelephone Encounter - Radha Bejarano - 07/30/2012 11:35 AM PDTLeft message for Audra to return call. elephone Encounter - Julisa Howard ARNP - 0 07/30/2012 8:17 AM PDTAs discussed with patient, we are referring him for potential gastric pacemaker. All other efforts to help control his gastroparesis or even exhausted. Thank yo u elephone Joie garrido - Cornel Hui - 07/29/2012 3:48 PM PDTReceived call from MEGHNA Zhu at [facility] in [place] today. She stated that patient is currently a hemodialysis patien t M-F, but he is wanting to switch to paritoneal dialysis at his home. However, Audra is nee ding to know if this is something he can do with his gastroparesis? You can either reach Mckenzie hargrove at the dialysis center at [phone] or on her work cell phone at [phone], because she works in [place] and [place]. documented in this encounter Plan of Treatment +--------+---------+ + + + | Date | Type | Specialty | Care Team | Description | +--------+---------+ + + + | 01/04/ | Office | Nephrology | Jaren Pelayo MD | | | 2020 | Visit | | [address] [facility] | | | | | | [address] [place] | | | | | | [address] | | | | | | | | +--------+---------+ + + + documented as of this encounter Visit Diagnoses Not on filedocumented in this encounter"
--- OUTSIDE RECORDS SUMMARY | ~2019-10-28 | XMS | Encounter Summary ---
Demographics + + + | Address | [address] | | | [place] [address] | + + + | Home Phone | | + + + | Preferred Language | Unknown | + + + | Marital Status | | + + + | Mandaen Affiliation | 1013 | + + + | Race | Unknown | + + + | Ethnic Group | Unknown | + + + Author + + + | Author | [facility] | | | and [place] | + + + | Organization | [facility] | | | and [place] | + + + | Address | Unknown | + + + | Phone | Unavailable | + + + Support + + + + + | Name | Relationship | Address | Phone | + + + + + | Deysi Montelongo | ECON | [address] | | | | | [place] | | | | | [address] | | + + + + + | Ellen Rogers | ECON | [address] | | | | | [place] | | + + + + + | Gisell Rogers | ECON | Unknown | | + + + + + Care Team Providers + +------+ + | Care Small Products Assembler Name | Role | Phone | + +------+ + | David Estrada MD | PCP | Unavailable | + +------+ + Reason for Visit + +--------+ + | Reason | Onset | Comments | | | Date | | + +--------+ + | Results, Pathology | 04/29/ | EGD | | | 2012 | | + +--------+ + | Results | 04/29/ | h-uzairori positive | | | 2012 | | + +--------+ + Encounter Details +--------+ + + + + | Date | Type | Department | Care Team | Description | +--------+ + + + + | 04/29/ | Telephone | [facility] | [place] | Results, Pathology | | 2012 | | GASTROENTEROLOGY | Julisa, HANDICRAFTS TEACHER [address] | (EGD ); Results | | | | [address] [place] | [address] [place] [address] | (h-pyori positive) | | | | [address] [place], [place] | [place], [place] | | | | | [address] | [address] | | | | | [phone] | | | +--------+ + + + [...] this encounter Miscellaneous Notes Telephone Encounter - Lizandro Alford RN - 05/07/2012 9:30 AM PSTPatient reached. Result s from EGD of 05/02/12 relayed. Negative biopsy. Positive for h-pylori. Will be following up with PCP. Letter from Dr Duron to PCP to follow. Patient voiced understanding. elephone Encounter - Wendy Parham - 04/29/2012 10:17 AM PSTLeft message to call and schedule follow up for test results with Viki. document ed in this encounter Plan of Treatment +--------+---------+ + + + | Date | Type | Specialty | Care Team | Description | +--------+---------+ + + + | 01/04/ | Office | Nephrology | Jaren Pelayo MD | | | 2019 | Visit | | [address] [facility] | | | | | | [address] [place] | | | | | | [address] | | | | | | | | +--------+---------+ + + + documented as of this encounter Visit Diagnoses Not on filedocumented in this encounter"
--- OUTSIDE RECORDS SUMMARY | ~2019-10-28 | XMS | Encounter Summary ---
Demographics + + + | Address | [address] | | | [place] [address] | + + + | Home Phone | | + + + | Preferred Language | Unknown | + + + | Marital Status | Single | + + + | Evangelical Affiliation | CHR | + + + | Race | White | + + + | Ethnic Group | Not or | + + + Author + + + | Author | [facility] | + + + | Organization | [facility] | + + + | Address | Unknown | + + + | Phone | Unavailable | + + + Support + + + + + | Name | Relationship | Address | Phone | + + + + + | Krissy Rogers | BRADEN | [place] [address] | | + + + + + | Bay Rogers | ECON | Unknown | | + + + + + Care Team Providers + +------+ + | Care Heel Nail Rasper Name | Role | Phone | + +------+ + | Jono Arambula | PCP | | + +------+ + Encounter Details +--------+ + + + + | Date | Type | Department | Care Team | Description | +--------+ + + + + | 10/13/ | Document-Sc | UNKNOWN DEPARTMENT | Unknown . | | | 2009 | anned | [address] [facility] | | | | | | [address] | | | | | | [place], [place] | | | | | | [address] | | | +--------+ + + + [...] | | 2019 | Visit | | [address] | | | | | | [address] | | | | | | [place], [place] | | | | | | [address] | | | | | | [phone] | | | | | | | | +--------+---------+ + + + documented as of this encounter Visit Diagnoses Not on filedocumented in this encounter"
--- OUTSIDE RECORDS SUMMARY | ~2019-10-28 | XMS | Encounter Summary ---
Demographics + + + | Address | [address] | | | [place] [address] | + + + | Home Phone | | + + + | Preferred Language | Unknown | + + + | Marital Status | Single | + + + | Buddhism Affiliation | CHR | + + + [...] Krissy Rogers | BRADEN | [place] [address] | | + + + + + | Bay Rogers | ECON | Unknown | | + + + + + Care Team Providers + +------+ + | Care Wreath And Garland Maker Name | Role | Phone | + [...] [address] | | | | [address] [place], [place] | [address] | | | | | [address] | [place] [address] | | | | | [phone] | [phone] | | | | | | | [...] [address] | | | | | | [place], [place] | | | | | | [address] | | | | | | [phone] | | | | | | | [...]
--- OUTSIDE RECORDS SUMMARY | ~2019-10-28 | XMS | Encounter Summary ---
Demographics + + + | Address | [address] | | | [place] [address] | + + + | Home Phone | | + + + | Preferred Language | Unknown | + + + | Marital Status | | + + + | Baptist Affiliation | 1013 | + + + | Race | Unknown | + + + | Ethnic Group | Unknown | + + + Author + + + | Author | [facility] | | | and [place] | + + + | Organization | [facility] | | [...] [place] | | | | | [address] | | + + + + + | Ellen Greer | ECON | [address] | | | | | [place] | | + + + + + | Gisell Greer | ECON | Unknown | | + + + + + Care Team Providers + +------+ + | Care Classroom Assistant Name | Role | Phone | + +------+ + PCP | Unavailable | + +------+ + Encounter Details +--------+ + + + + | Date | Type | Department | Care Team | Description | +--------+ + + + + | 01/17/ | Hospital | [facility] | Conversion | Diabetic neuropathy | | 2011 | Encounter | [facility] | Transaction, | ([facility]) | | | | ULTRASOUND [address] | Provider Unknown | | | | | [facility] | [phone] | | | | | [place], [place] | | | | | | [address] | Jaren Pelayo MD | | | | | [phone] | [address] [facility] | | | | | | [address] [place] | | | | | | [address] | | | | | | | [...] Visit | | [address] [facility] | | | | | | [address] [place] | | | | | | [address] | | | | | | | | +--------+---------+ + + + documented as of this encounter Procedures + +--------+ + + + | Procedure Name | Priori | Date/Time | Associated Diagnosis | Comments | | | ty | | | | + +--------+ + + + | VAS ANKLE BRACHIAL | Routin | 01/18/2012 | | Results for this | | INDEX RESTING | e | 11:15 AM | | procedure are in the | | | | PDT | | results section. | + +--------+ + + + documented in this encounter Results VAS Ankle Brachial Index Resting (01/18/2012 11:15 AM PDT) + + | Specimen | + + | | + + + + + | Narrative | Performed At | + + + | [facility] 01/18/2012 10:23 AM HISTORY: | | | Lower extremity swelling for many years. Bilateral foot numbness and | | | discoloration. TECHNIQUE: Bilateral resting ankle brachial | | | indices were performed. The patient could not be safely exercised | | | for post exercise imaging. FINDINGS: Compared with August 25, 2008. | | | The right NATALEE is 0.89 and the left NATALEE is 1.32 (dorsalis pedis). | | | Waveforms are triphasic. The technologist was unable to obtain | | | flow in the posterior tibial arteries bilaterally. Arteries are | | | extremely calcified, limiting compressibility. IMPRESSION: 1. | | | Suboptimal study due to heavily calcified arteries with limited | | | compressibility. The right NATALEE is low at 0.89, suggesting mild to | | | moderate peripheral vascular arterial disease. This appears worse | | | than on the prior examination. 2. The left NATALEE accuracy is in doubt | | | due to limited compressibility. 3. Would consider a bilateral | | | lower extremity arterial ultrasound for further evaluation. | | | | | + + + + + | Procedure Note | + + | Billy Butler Conversion - 12/14/2018 8:46 AM PDT [facility]01/18/2012 | | 10:23 AM HISTORY:Lower extremity swelling for many years. Bilateral foot numbness and | | discoloration. TECHNIQUE:Bilateral resting ankle brachial indices were performed. The | | patient could not be safely exercised for post exercise imaging. FINDINGS:Compared with | | August 25, 2008. The right NATALEE is 0.89 and the left NATALEE is 1.32 (dorsalis pedis). Waveforms | | are triphasic. The technologist was unable to obtain flow in the posterior tibial | | arteries bilaterally. Arteries are extremely calcified, limiting compressibility. | | IMPRESSION:1. Suboptimal study due to heavily calcified arteries with limited | | compressibility. The right NATALEE is low at 0.89, suggesting mild to moderate peripheral | | vascular arterial disease. This appears worse than on the prior examination.2. The | | left NATALEE accuracy is in doubt due to limited compressibility.3. Would consider a | | bilateral lower extremity arterial ultrasound for further evaluation. Electronically | | signed by Baldemar Barrow MD on 01/18/2012 11:30 AM | |The right NATALEE is 0.89 and the left NATALEE is 1.32 (dorsalis pedis). Waveforms are triphasic. The technologist was unable to obtain flow in the posterior tibial arteries bilaterally. A rteries are extremely calcified, limiting compressibility. | | | |IMPRESSION: | |1. Suboptimal study due to heavily calcified arteries with limited compressibility. The r ight NATALEE is low at 0.89, suggesting mild to moderate peripheral vascular arterial disease. This appears worse than on the prior examination. | |2. The left NATALEE accuracy is in doubt due to limited compressibility. | |3. Would consider a bilateral lower extremity arterial ultrasound for further evaluation. | | | | | + + documented in this encounter Visit Diagnoses + + | Diagnosis | + + | Diabetic neuropathy (HCC) Type II or unspecified type diabetes mellitus with | | neurological manifestations, not stated as uncontrolled | + + documented in this encounter"
--- OUTSIDE RECORDS SUMMARY | ~2019-10-28 | XMS | Encounter Summary ---
Demographics + + + | Address | [address] | | | [place] [address] | + + + | Home Phone | | + + + | Preferred Language | Unknown | + + + | Marital Status | | + + + | Evangelical Affiliation | 1013 | + + + | Race | Unknown | + + + | Ethnic Group | Unknown | + + + Author + + + | Author | [facility] | | | and [place] | + + + | Organization | [facility] | | [...] [address] | | | | | [facility] | | | | | [address] | | + + + + + | Ellen Rogers | ECON | [address] | | | | | [place] | | + + + + + | Gisell Rogers | ECON | Unknown | | + + + + + Care Team Providers + +------+ + | Care Bindery Supervisor Name | Role | Phone | + +------+ + | David Estrada MD | PCP | Unavailable | + +------+ + Encounter Details +--------+ + + + + | Date | Type | Department | Care Team | Description | +--------+ + + + + | 06/24/ | Hospital | [facility] | Conversion | Pain | | 2013 | Encounter | CONVERSION DEP [address] | Transaction, | | | | | [address] | Provider Unknown | | | | | [facility] [place] | [phone] | | | | | [address] | | | | | | [phone] | | | +--------+ + + + [...] 2019 | Visit | | [address] [facility] [address] | | | | | | [address] [place], [place] | | | | | | [address] | | | | | | | | +--------+---------+ + + + documented as of this encounter Procedures + +--------+ + + + | Procedure Name | Priori | Date/Time | Associated Diagnosis | Comments | | | ty | | | | + +--------+ + + + | VAS LOWER EXTREMITY | Routin | 04/04/2012 | | Results for this | | ARTERIES BILATERAL | e | 4:31 AM | | procedure are in the | | | | PST | | results section. | + +--------+ + + + documented in this encounter Results VAS Lower Extremity Arteries Bilateral (04/04/2012 4:31 AM PST) + + | Specimen | + + | | + + + + + | Narrative | Performed At | + + + | This is a non-reportable procedure without a radiologist report and | | | is used for image storage only | | + + + + + | Procedure Note | + + | Billy Butler Abiola - 12/06/2018 9:29 PM PDT This is a non-reportable procedure | | without a radiologist report and isused for image storage only | + + documented in this encounter Visit Diagnoses + + | Diagnosis | + + | Pain Generalized pain | + + documented in this encounter"
--- OUTSIDE RECORDS SUMMARY | ~2019-10-28 | XMS | Encounter Summary ---
Demographics + + + | Address | [address] | | | [place] [address] | + + + | Home Phone | | + + + | Preferred Language | Unknown | + + + | Marital Status | | + + + | Episcopalian Affiliation | 1013 | + + + [...] [address] | | | | | [facility] | | | | | [address] | | + + + + + | Ellen Rogers | ECON | [address] | | | | | [place] | | + + + + + | Gisell Rogers | ECON | Unknown | | + + + + + Care Team Providers + +------+ + | Care Statistical Financial Analyst Name | Role | Phone | + +------+ + | Fatuma Agee NP | PCP | | + +------+ + Encounter Details +--------+ + + + + | Date | Type | Department | Care Team | Description | +--------+ + + + + | 04/24/ | Orders Only | [facility] | Jaren Pelayo MD | | | 2020 | | NEPHROLOGY [place] | [address] [place] | | | | | [address] [place] | [address] [place], [place] | | | | | [address] [place], [place] | [address] | | | | | [address] | | | | | | [phone] | | | +--------+ + + + [...] 2020 | Visit | | [address] [facility] | | | | | | [address] [place] | | | | | | [address] | | | | | | | | +--------+---------+ + + + documented as of this encounter Visit Diagnoses Not on filedocumented in this encounter"
--- OUTSIDE RECORDS SUMMARY | ~2019-10-28 | XMS | Encounter Summary ---
Demographics + + + | Address | [address] | | | [place] [address] | + + + | Home Phone | | + + + | Preferred Language | Unknown | + + + | Marital Status | Single | + + + | Spiritism Affiliation | CHR | + + + | Race | White | + + + | Ethnic Group | Not or | + + + Author + + + | Author | [facility] | + + + | Organization | [facility] | + + + | Address | Unknown | + + + | Phone | Unavailable | + + + Support + + + + + | Name | Relationship | Address | Phone | + + + + + | Krissy Rogers | BRADEN | [place] [address] | | + + + + + | Bay Rogers | ECON | Unknown | | + + + + + Care Team Providers + +------+ + | Care Therapist Name | Role | Phone | + [...] | | | | | Moraima Hernandez [place], | | | | | | [place] [address] | | | +--------+ + + + [...] | | 2019 | Visit | | [address] | | | | | | [address]ia [address] | | | | | | [place], [place] | | | | | | [address] | | | | | | [phone] | | | | | | | [...] + + + | [facility] - | [address] | [place] [address] | | | IMMUNOGENETICS/TRANS | [address] | | | | [facility] | | | | + + + + + documented in this encounter Visit Diagnoses Not on filedocumented in this encounter"
--- OUTSIDE RECORDS SUMMARY | ~2019-10-28 | XMS | Encounter Summary ---
Demographics + + + | Address | [address] | | | [place] [address] | + + + | Home Phone | | + + + | Preferred Language | Unknown | + + + | Marital Status | | + + + | Taoism Affiliation | 1013 | + + + | Race | Unknown | + + + | Ethnic Group | Unknown | + + + Author + + + | Author | [facility] | | | and [place] | + + + | Organization | [facility] | | | [...] | | | | | [facility] | | | | | [address] | | + + + + + | Ellen Rogers | ECON | [address] | | | | | [place] | | + + + + + | Gisell Rogers | ECON | Unknown | | + + + + + Care Team Providers + +------+ + | Care Recovery Assistant Name | Role | Phone | + +------+ + | Fatuma Agee NP | PCP | | + +------+ + Reason for Visit +--------+ + | Reason | Comments | +--------+ + | Other | B /P log 01/31/19-02/17/19 | +--------+ + Encounter Details +--------+ + + + + | Date | Type | Department | Care Team | Description | +--------+ + + + + | 04/08/ | Documentati | [facility] | Petey, | Other (B /P log | | 2019 | on | NEPHROLOGY [place] | Mert Junior | 01/31/19-02/17/19) | | | | [address] | [employer] | | | | | [address] [place] | | | | | | [address] | | | | | | [phone] | | | +--------+ + + + [...] Visit | | [address] [facility] | | | | | | [address] [place] | | | | | | [address] | | | | | | | | +--------+---------+ + + + documented as of this encounter Visit Diagnoses Not on filedocumented in this encounter"
--- OUTSIDE RECORDS SUMMARY | ~2019-10-28 | XMS | Encounter Summary ---
Demographics + + + | Address | [address] | | | [place] [address] | + + + | Home Phone | | + + + | Preferred Language | Unknown | + + + | Marital Status | | + + + | Orthodox Affiliation | 1013 | + + + | Race | Unknown | + + + | Ethnic Group | Unknown | + + + Author + + + | Author | [facility] | | | and [place] | + + + | Organization | [facility] | | | [...] [address] | | | | | [address] | | + + + + + | Ellen Rogers | ECON | [address] | | | | | [place] | | + + + + + | Gisell Rogers | ECON | Unknown | | + + + + + Care Team Providers + +------+ + | Care Urban Gardening Specialist Name | Role | Phone | + +------+ + | Lizbet Sellers MD | PCP | | + +------+ + Encounter Details +--------+ + + + + | Date | Type | Department | Care Team | Description | +--------+ + + + + | 10/05/ | Orders Only | [facility] | Conversion | | | 2015 | | NEPRHOLOGY [place] | Transaction, | | | | | [address] | Provider Unknown | | | | | [address] [place], [place] | [phone] | | | | | [address] | | | | | | [phone] | | | +--------+ + + + [...] 2019 | Visit | | [address] [facility] | | | | | | [address] [place] | | | | | | [address] | | | | | | | | +--------+---------+ + + + documented as of this encounter Procedures + +--------+ + + + | Procedure Name | Priori | Date/Time | Associated Diagnosis | Comments | | | ty | | | | + +--------+ + + + | EXTERNAL LAB: CBC | Routin | 10/06/2015 | | Results for this | | | e | 12:00 AM | | procedure are in the | | | | PDT | | results section. | + +--------+ + + + | URINALYSIS WITH | Routin | 10/06/2015 | | Results for this | | MICROSCOPIC WITH | e | 12:00 AM | | procedure are in the | | CULTURE IF INDICATED | | PDT | | results section. | + +--------+ + + + | MICROALBUMIN/CREATIN | Routin | 10/06/2015 | | Results for this | | INE RATIO, URINE | e | 12:00 AM | | procedure are in the | | TEST | | PDT | | results section. | + +--------+ + + + | MAGNESIUM | Routin | 10/06/2015 | | Results for this | | | e | 12:00 AM | | procedure are in the | | | | PDT | | results section. | + +--------+ + + + | HEPATIC FUNCTION | Routin | 10/06/2015 | | Results for this | | PANEL | e | 12:00 AM | | procedure are in the | | | | PDT | | results section. | + +--------+ + + + | RENAL FUNCTION PANEL | Routin | 10/06/2015 | | Results for this | | | e | 12:00 AM | | procedure are in the | | | | PDT | | results section. | + +--------+ + + + documented in this encounter Results Urinalysis with Microscopic with Culture if Indicated (10/06/2015 12:00 AM PDT) + + + + + + | Component | Value | Ref Range | Performed | Pathologist | | | | | At | Signature | + + + + + + | Color | Yellow | | EXTERNAL | | | | | | LAB | | + + + + + + | Clarity, | Slightly Cloudy | | EXTERNAL | | | Urine | | | LAB | | + + + + + + | Spec Grav, | 1.025 | | EXTERNAL | | | Fluid [...] + + + + | Urobilinoge | | | EXTERNAL | | | n, Urine | | | LAB | | + + + + + + | Total | negative | | EXTERNAL | | | Protein | | | LAB | | + + + + + + | pH, Urine | 5.5 | 5.0 - 8.0 | EXTERNAL | | | | | | LAB | | + + + + + + | Blood, | Negative | | EXTERNAL | | | Urine | | | LAB | | + + + + + + | Ketones | negative | | EXTERNAL | | | | | | LAB | | + + + + + + | Bilirubin, | Negative | | EXTERNAL | | | Urine | | | LAB | | + + + + + + | Glucose, | 2+Comment: 2+A | | EXTERNAL | | | Urine | | | LAB | | + + + + + + | WBC, UA | negative | | EXTERNAL | | | | | | LAB | | + + + + + + | RBC, UA | negative | | EXTERNAL | | | | | | LAB | | + + + + + + | Epithelial | Comment: RARE | | EXTERNAL | | | Cells [...] Performed At | + + + | [facility]) | EXTERNAL LAB | + + + + +---------+ + + | Performing | Address | City/State/Zipcode | Phone Number | | Organization | | | | + +---------+ + + | EXTERNAL LAB | | | | + +---------+ + + Microalbumin/Creatinine Ratio, Urine (10/06/2015 12:00 AM PDT) + +-------+ + + + | Component | Value | Ref Range | Performed | Pathologist | | | | | At | Signature | + +-------+ + + + | ALBUMIN/CRE | | | EXTERNAL | | | ATININE | | | LAB | | | RATIO.URINE | | | | | | .ORD.MG/G | | | | | | (MYLA) | | | | | | | | | | | | | | | | | + +-------+ + + + + + | Specimen | + + | Urine specimen | | (specimen) | + + + + + | Narrative | Performed At | + + + | U ALBUMIN - <0.7 U CREATININE- 154 | EXTERNAL LAB | + + + + +---------+ + + | Performing | Address | City/State/Zipcode | Phone Number | | Organization | | | | + +---------+ + + | EXTERNAL LAB | | | | + +---------+ + + External Lab: CBC (10/06/2015 12:00 AM PDT) + +---------+ + + + | Component | Value | Ref Range | Performed | Pathologist | | | | | At | Signature | + +---------+ + + + | WBC | 8.7 | 4.0 - 10.1 10 | EXTERNAL | | | | | | LAB | | + +---------+ + + + | Non- | 5.28 | 4.31 - 6.40 10 | EXTERNAL | | | Red Blood | | | LAB | | | Cells | | | | | | Counted | | | | | + +---------+ + + + | Hemoglobin | 15.9 | 13.6 - 18.0 | EXTERNAL | | | | | g/dL | LAB | | + +---------+ + + + | Hematocrit, | 48.4 | 39.8 - 52.0 % | EXTERNAL | | | POC | | | LAB | | + +---------+ + + + | MCV | 91.7 | 80.0 - 97.0 fL | EXTERNAL | | | | | | LAB | | + +---------+ + + + | MCH | 30.1 | 26.0 - 34.0 pg | EXTERNAL | | | | | | LAB | | + +---------+ + + + | MCHC | 32.9 | 32.0 - 36.0 | EXTERNAL | | | | | g/dL | LAB | | + +---------+ + + + | Platelet | 445 (A) | 140 - 440 K/ L | EXTERNAL | | | Count | | | LAB | | | Plasma | | | | | + +---------+ + + + | RDW-CV | 13.8 | 11.5 - 15.0 % | EXTERNAL | | | | | | LAB | | + +---------+ + + + | MPV | 10.7 | 6.5 - 12.4 fL | EXTERNAL | | | | | | LAB | | + +---------+ + + + | Differentia | | | EXTERNAL | | | l Type | | | LAB | | + +---------+ + + + | % Segmented | 5.78 | 1.50 - 8.00 % | EXTERNAL | | | | | | LAB | | | Neutrophils | | | | | + +---------+ + + + | % | 1.75 | 0.80 - 4.00 % | EXTERNAL | | | Lymphocytes | | | LAB | | + +---------+ + + + | % Monocytes | 0.94 | 0.00 - 1.20 % | EXTERNAL | | | | | | LAB | | + +---------+ + + + | % | 0.23 | 0.00 - 0.30 % | EXTERNAL | | | Eosinophils | | | LAB | | + +---------+ + + + | % Basophils | 0.03 | 0.00 - 0.30 % | EXTERNAL | | | | | | LAB | | + +---------+ + + + | Absolute | 66.3 | 37.0 - 80.0 | EXTERNAL | | | Segmented | | / L | LAB | | | Neutrophils | | | | | + +---------+ + + + | Absolute | 20.0 | 16.0 - 51.0 | EXTERNAL | | | Lymphocytes | | / L | LAB | | + +---------+ + + + | Absolute | 10.8 | 0.0 - 12.0 / L | EXTERNAL | | | Monocytes | | | LAB | | + +---------+ + + + | Absolute | 2.6 | 0.0 - 8.0 / L | EXTERNAL | | | Eosinophils | | | LAB | | + +---------+ + + + | Absolute | 0.3 | 0.0 - 3.0 / L | EXTERNAL | | | [...] | | + +---------+ + + Magnesium (10/06/2015 12:00 AM PDT) + +---------+ + + + | Component | Value | Ref Range | Performed | Pathologist | | | | | At | Signature | + +---------+ + + + | Magnesium | 1.3 (A) | 1.7 - 2.2 mg/dL | EXTERNAL | | | | [...] | | | + +---------+ + + Hepatic Function Panel (10/06/2015 12:00 AM PDT) + +---------+ + + + | Component | Value | Ref Range | Performed | Pathologist | | | | | At | Signature | + +---------+ + + + | Protein, | 6.8 | 6.0 - 8.3 g/dL | EXTERNAL | | | Total | | | LAB | | + +---------+ + + + | Albumin | 3.8 | 3.5 - 5.0 | EXTERNAL | | | | | | LAB | | + +---------+ + + + | Bilirubin | 1.2 | 0.3 - 1.2 mg/dL | EXTERNAL | | | Total | | | LAB | | + +---------+ + + + | Bilirubin | 0.4 (A) | 0.0 - 0.2 mg/dL | EXTERNAL | | | Direct | | | LAB | | + +---------+ + + + | ALP, | 104 | 53 - 128 | EXTERNAL | | | External | | | LAB | | + +---------+ + + + | AST | 27 | 14 - 50 U/L | EXTERNAL | | | | | | LAB | | + +---------+ + + + | ALT | 34 | 10 - 35 U/L | EXTERNAL | | | | | | LAB | | + +---------+ + + + | A/G Ratio | | | EXTERNAL | | | | | | LAB | | + +---------+ + + + | Globulin, | | | EXTERNAL | | | Total | | | LAB | | + [...] + +---------+ + + Renal Function Panel (10/06/2015 12:00 AM PDT) + + + + + + | Component | Value | Ref Range | Performed | Pathologist | | | | | At | Signature | + + + + + + | Glucose, | 54 (A) | 74 - 100 mg/dL | EXTERNAL | | | Fasting | | | LAB | | + + + + + + | BUN | 1.45 (A) | 6 - 20 mg/dL | EXTERNAL | | | | | | LAB | | + + + + + + | Creatinine | 1.45 (A) | 0.70 - 1.30 | EXTERNAL | | | | | mg/dL | LAB | | + + + + + + | PHOSPHORUS | 4.4 | 2.7 - 4.5 mg/dL | EXTERNAL | | | | | | LAB | | + + + + + + | Albumin | 3.8 | 3.5 - 5.0 | EXTERNAL | | | | | | LAB | | + + + + + + | Na | 135 (A) | 136 - 145 | EXTERNAL | | | | | mmol/L | LAB | | + + + + + + | K | 4.0 | 3.6 - 5.0 | EXTERNAL | | | | | mmol/L | LAB | | + + + + + + | Cl | 98 | 98 - 107 mmol/L | EXTERNAL | | | | | | LAB | | + + + + + + | CO2 | 29 (A) | 22 - 28 mmol/L | EXTERNAL | | | | | | LAB | | + + + + + + | Anion Gap | | mmol/L | EXTERNAL | | | | | | LAB | | + + + + + + | eGFR if not | | | EXTERNAL | | | | | | LAB | | | MACANESE | | | | | + + + + + + | Phosphorus, | | | EXTERNAL | | | Inorganic | | | LAB | | + + + + + + | BUN/Creatin | | | EXTERNAL | | | ine Ratio | | | LAB | | + + + + + + | Calcium | 8.2 (A) | 8.6 - 10.3 | EXTERNAL | | | | | mg/dL | LAB | | + + + + + + | Estimated | 57 | mg/dL | EXTERNAL | | | [...]
--- OUTSIDE RECORDS SUMMARY | ~2019-10-28 | XMS | Encounter Summary ---
Demographics + + + | Address | [address] | | | [place] [address] | + + + | Home Phone | | + + + | Preferred Language | Unknown | + + + | Marital Status | | + + + | Buddhist Affiliation | 1013 | + + + | Race | Unknown | + + + | Ethnic Group | Unknown | + + + Author + + + | Author | [facility] | | | and [place] | + + + | Organization | [facility] | | | and [place] | + + + | Address | Unknown | + + + | Phone | Unavailable | + + + Support + + + + + | Name | Relationship | Address | Phone | + + + + + | Deysi Montelongo | ECON | [address] | | | | | [facility] | | | | | [address] | | + + + + + | Ellen Rogers | ECON | [address] | | | | | [place] | | + + + + + | Gisell Rogers | ECON | Unknown | | + + + + + Care Team Providers + +------+ + | Care Cylinder Machine Operator Pulp Drier Name | Role | Phone | + +------+ + | Fatuma Agee NP | PCP | | + +------+ + Reason for Visit +--------+--------+ + | Reason | Onset | Comments | | | Date | | +--------+--------+ + | Other | 03/17/ | Patient call | | | 2019 | | +--------+--------+ + Encounter Details +--------+ + + + + | Date | Type | Department | Care Team | Description | +--------+ + + + + | 03/17/ | Telephone | [facility] | Jaren Pelayo MD | Other (Patient call) | | 2018 | | NEPHROLOGY [place] | [address] [place] | | | | | [address] | [address] [place], [place] | | | | | [address] [address] | [id number] | | | | | [place] | | | | | | [address] | | | | | | [phone] | | | +--------+ + + + [...] this encounter Miscellaneous Notes Telephone Encounter - Sandi Angelo Flatwork Finisher - 03/17/2019 4:32 PM PSTDale hannah to call patient and inform of lab values. Patient would also like to let Dr. Cade pop know that he is having less swelling in his legs. elephone Encounter - Sanid Angelo Flatwork Finisher - 03/17/2019 4:32 PM PST----- Message from Raven Little sent at 11:06 AM PST ----- Regarding: Gita / lab results Provider: gita stephens furnace caretaker called wants to know lab results. Please call them back at [phone]. Detailed message may be left on phone: Yes do cumented in this encounter Plan of Treatment +--------+---------+ + + + | Date | Type | Specialty | Care Team | Description | +--------+---------+ + + + | 01/04/ | Office | Nephrology | Jaren Pelayo MD | | | 2020 | Visit | | [address] [facility] | | | | | | [address] [place] | | | | | | [address] | | | | | | | | +--------+---------+ + + + documented as of this encounter Visit Diagnoses Not on filedocumented in this encounter"
--- OUTSIDE RECORDS SUMMARY | ~2019-10-28 | XMS | Encounter Summary ---
Demographics + + + | Address | [address] | | | [place] [address] | + + + | Home Phone | | + + + | Preferred Language | Unknown | + + + | Marital Status | | + + + | Scientologist Affiliation | 1013 | + + + | Race | Unknown | + + + | Ethnic Group | Unknown | + + + Author + + + | Author | [facility] | | | and [place] | + + + | Organization | [facility] | | | and [place] | + + + | Address | Unknown | + + + | Phone | Unavailable | + + + Support + + + + + | Name | Relationship | Address | Phone | + + + + + | Deysi Montelongo | ECON | [address] | | | | | [facility] | | | | | [address] | | + + + + + | Ellen Rogers | ECON | [address] | | | | | [place] | | + + + + + | Gisell Rogers | ECON | Unknown | | + + + + + Care Team Providers + +------+ + | Care Physics Department Chair Name | Role | Phone | + +------+ + | David Estrada MD | PCP | Unavailable | + +------+ + Encounter Details +--------+ + + + + | Date | Type | Department | Care Team | Description | +--------+ + + + + | 03/25/ | Abstract | [facility] | [facility], | ESRD on dialysis | | 2011 | | GASTROENTEROLOGY | [address] | ([facility]) (Primary Dx) | | | | [address] [place] | [address] [place] [address] | | | | | [address] [place] | [place] | | | | | [address] | [phone] | | | | | [phone] | | | +--------+ + + + [...] 2020 | Visit | | [address] [facility] | | | | | | [address] [place] | | | | | | [address] | | | | | | | | +--------+---------+ + + + documented as of this encounter Visit Diagnoses + + | Diagnosis | + + | ESRD on dialysis (HCC) - Primary End stage renal disease | + + documented in this encounter"
--- OUTSIDE RECORDS SUMMARY | ~2019-10-28 | XMS | Encounter Summary ---
Demographics + + + | Address | [address] | | | [place] [address] | + + + | Home Phone | | + + + | Preferred Language | Unknown | + + + | Marital Status | | + + + | Latter-Day Affiliation | 1013 | + + + [...] [address] | | | | | [address] | | + + + + + | Ellen Rogers | ECON | [address] | | | | | [place] | | + + + + + | Gisell Rogers | ECON | Unknown | | + + + + + Care Team Providers + +------+ + | Care Time Clock Mechanic Name | Role | Phone | + +------+ + | Lizbet Sellers MD | PCP | | + +------+ + Encounter Details +--------+ + + + + | Date | Type | Department | Care Team | Description | +--------+ + + + + | 07/18/ | Orders Only | [facility] | Jaren Pelayo MD | | | 2016 | | NEPRHOLOGY BUHLER | [address] | | | | | [address] | [address] [place], [place] | | | | | [address] [place], [place] | [id number] | | | | | [address] | | | | | | [phone] | | | +--------+ + + + [...] 2020 | [facility] | | [address] [facility] | | | | | | [address] [place] | | | | | | [address] | | | | | | | | +--------+---------+ + + + documented as of this encounter Procedures + +--------+ + + + | Procedure Name | Priori | Date/Time | Associated Diagnosis | Comments | | | ty | | | | + +--------+ + + + | EXTERNAL LAB: | Routin | 07/19/2015 | | Results for this | | TACROLIMUS LEVEL, | e | 12:00 AM | | procedure are in the | | LC-MS/MS | | PDT | | results section. | + +--------+ + + + | EXTERNAL LAB: CBC | Routin | 07/19/2015 | | Results for this | | | e | 12:00 AM | | procedure are in the | | | | PDT | | results section. | + +--------+ + + + | URINALYSIS WITH | Routin | 07/19/2015 | | Results for this | | MICROSCOPIC IF | e | 12:00 AM | | procedure are in the | | INDICATED | | PDT | | results section. | + +--------+ + + + | PARATHYROID HORMONE, | Routin | 07/19/2015 | | Results for this | | INTACT AND CALCIUM | e | 12:00 AM | | procedure are in the | | | | PDT | | results section. | + +--------+ + + + | PROTEIN/CREATININE | Routin | 07/19/2015 | | Results for this | | RATIO, URINE | e | 12:00 AM | | procedure are in the | | | | PDT | | results section. | + +--------+ + + + | BK VIRUS, NAAT, | Routin | 07/19/2015 | | Results for this | | URINE, QUANT | e | 12:00 AM | | procedure are in the | | | | PDT | | results section. | + +--------+ + + + | MAGNESIUM | Routin | 07/19/2015 | | Results for this | | | e | 12:00 AM | | procedure are in the | | | | PDT | | results section. | + +--------+ + + + | RENAL FUNCTION PANEL | Routin | 07/19/2015 | | Results for this | | | e | 12:00 AM | | procedure are in the | | | | PDT | | results section. | + +--------+ + + + documented in this encounter Results External Lab: Tacrolimus Level, LC-MS/MS (07/19/2015 12:00 AM PDT) + +-------+ + + + | Component | Value | Ref Range | Performed | Pathologist | | | | | At | Signature | + +-------+ + + + | Tacrolimus | 8.2 | | EXTERNAL | | | Level [...] + + Parathyroid Hormone, Intact and Calcium (07/19/2015 12:00 AM PDT) + +-------+ + + + | Component | Value | Ref Range | Performed | Pathologist | | | | | At | Signature | + +-------+ + + + | PTH Intact | 34.68 | 15 - 65 | EXTERNAL | | | | | | LAB | | + +-------+ + + + | Calcium | 9.0 | 8.4 - 10.2 | EXTERNAL | [...] + +---------+ + + Protein/Creatinine Ratio, Urine (07/19/2015 12:00 AM PDT) + +-------+ + + + | Component | Value | Ref Range | Performed | Pathologist | | | | | At | Signature | + +-------+ + + + | Protein/Cre | 32.8 | 0 - 150 | EXTERNAL | [...] + + BK Virus, NAAT, Urine, Quant (07/19/2015 12:00 AM PDT) + + | Specimen | + + | Urine specimen | | (specimen) | + + + + + | Impressions | Performed At | + + + | None Detected | EXTERNAL LAB | + + + + +---------+ + + | Performing | Address | City/State/Zipcode | Phone Number | | Organization | | | | + +---------+ + + | EXTERNAL LAB | | | | + +---------+ + + Urinalysis with Microscopic if Indicated (07/19/2015 12:00 AM PDT) + + + + [...] + + + | Spec Grav, | 1.030 | 1.005 - 1.030 | EXTERNAL | [...] + +---------+ + + External Lab: CBC (07/19/2015 12:00 AM PDT) + + + + + + | Component | Value | Ref Range | Performed | Pathologist | | | | | At | Signature | + + + + + + | WBC | 7.0 | 4.5 - 11.0 10 | EXTERNAL | | | | | | LAB | | + + + + + + | Non- | 4.90 | 4.3 - 5.7 10 | EXTERNAL | | | Red Blood | | | LAB | | | Cells | | | | | | Counted | | | | | + + + + + + | Hemoglobin | 14.1 | 13.5 - 18.0 | EXTERNAL | | | | | g/dL | LAB | | + + + + + + | Hematocrit, | 43.7 | 41 - 50 % | EXTERNAL | | | POC | | | LAB | | + + + + + + | MCV | 89.2 | 81 - 99 fL | EXTERNAL | | | | | | LAB | | + + + + + + | MCH | 29 | 27 - 33 pg | EXTERNAL | | | | | | LAB | | + + + + + + | MCHC | 32 | 30 - 36 g/dL | EXTERNAL | | | | | | LAB | | + + + + + + | Platelet | 366 | 140 - 440 K/ L | EXTERNAL | | | Count | | | LAB | | | Plasma | | | | | + + + + + + | RDW-CV | 14.0 | 10.5 - 15.0 % | EXTERNAL [...] + + + | % Segmented | 66.3 | 39 - 80 % | EXTERNAL | | | | | | LAB | | | Neutrophils | | | | | + + + + + + | % | 16.9 (A) | 24 - 44 % | EXTERNAL | | | Lymphocytes | | | LAB | | + + + + + + | % Monocytes | 13.6 (A) | 0 - 12 % | EXTERNAL | | | | | | LAB | | + + + + + + | % | 2.1 | 0 - 6 % | EXTERNAL | | | Eosinophils | | | LAB | | + + + + + + | % Basophils | 1.1 | 0 - 2 % | EXTERNAL [...] | | + +---------+ + + Magnesium (07/19/2015 12:00 AM PDT) + +---------+ + + [...] + +---------+ + + Renal Function Panel (07/19/2015 12:00 AM PDT) + + + + + + | Component | Value | Ref Range | Performed | Pathologist | | | | | At | Signature | + + + + + + | Glucose, | 61 (A) | 70 - 100 mg/dL | EXTERNAL | | | Fasting | | | LAB | | + + + + + + | BUN | 24 (A) | 6 - 23 mg/dL | EXTERNAL | | | | | | LAB | | + + + + + + | Creatinine | 1.56 (A) | 0.60 - 1.35 | EXTERNAL [...] + + + + | Na | 136 | 132 - 143 | EXTERNAL | | | | | mmol/L | LAB | | + + + + + + | K | 4.3 | 3.6 - 5.1 | EXTERNAL | | | | | mmol/L | LAB | | + + + + + + | Cl | 100 | 95 - 112 mmol/L | EXTERNAL | | | | | | LAB | | + + + + + + | CO2 | 21 | 19 - 31 mmol/L | EXTERNAL | | | | | | LAB | | + + + + + + | Anion Gap | 19.3 | 7 - 21 mmol/L | EXTERNAL | | | | | | LAB | | + + + + + + | eGFR if not | | | EXTERNAL | | | | | | LAB | | | DJIBOUTIAN | | | | | + + + + + + | Phosphorus, | 4.5 | 2.5 - 5.0 | EXTERNAL | | | Inorganic | | | LAB | | + + + + + + | BUN/Creatin | 15.4 | 6.0 - 28.6 | EXTERNAL | | | ine Ratio | | | LAB | | + + + + + + | Calcium | 9.0 | 8.4 - 10.2 | EXTERNAL | | | | | mg/dL | LAB | | + + + + + + | Estimated | 48 (A) | 60 - 140 mg/dL | [...]
--- OUTSIDE RECORDS SUMMARY | ~2019-10-28 | XMS | Encounter Summary ---
Demographics + + + | Address | [address] | | | [place] [address] | + + + | Home Phone | | + + + | Preferred Language | Unknown | + + + | Marital Status | Single | + + + | Roman Catholic Affiliation | CHR | + + + [...] Krissy Rogers | BRADEN | [place] [address] | | + + + + + | Bay Rogers | ECON | Unknown | | + + + + + Care Team Providers + +------+ + | Care Instructor Ballroom Dancing Name | Role | Phone | + [...] | | | | | | | [facility] | | | | | | | Clarita | | | | | | | Annabelle Jamison | | | | | | | [place], [place] | | | | | | | [address] | | | | | | | Phone: | | | | | | | [phone] | | | | | | | Fax: | | | | | | | [phone] | +--------+--------+ + + + + Encounter Details +--------+ + + + + | Date | Type | Department | Care Team | Description | +--------+ + + + + | 12/02/ | Hospital | [facility] [place] | Maria Elena Lieberman, | | | 2008 | Encounter | [address] | MD [address] | | | | | [address] [facility] | [address] | | | | | Clarita Montes | [place], [place] | | | | | [place], [place] | [address] | | | | | [address] | [phone] | | | | | | | [...] + documented as of this encounter Discharge Summaries Other, Faculty - 12/02/2008 4:15 PM PDT documented in this encounter Medications [...] mouth. Take | 20 | 0 | 12/03/19 | | | hydrocodone-acetamin | 1-2 Tabs every 4 | | | 09 | 9 | | ophen 5-500 mg Oral | hours as needed for | | | | | | Tablet | pain | | | | | + + + +---------+ + + | ofloxacin | Instill 1 Drop into | 5cc | 0 | 12/03/19 | | | (OCUFLOX) 0.3 % | the left eye four | | | 09 | 9 | | Ophthalmic Drops | times daily. In | | | | | | | operative eye | | | | | + + + +---------+ + + | prednisoLONE | Instill 1 Drop into | 10cc | 1 | 12/03/19 | | | acetate 1 % | the left eye four | | | 09 | 9 | | Ophthalmic Drops, | times daily. In | | | | | | Suspension | operative eye | | | | | + + + +---------+ + + documented as of this encounter Progress Notes Other, Faculty - 12/02/2008 4:15 PM PDT documented in this encounter Plan of Treatment +--------+---------+ + + + | Date | Type | Specialty | Care Team | Description | +--------+---------+ + + + | 01/26/ | Office | Ophthalmology | Maria Elena Lieberman, | | | 2019 | Visit | | [address] | | | | | | [address] | | | | | | [place], [place] | | | | | | [address] | | | | | | [phone] | | | | | | | | +--------+---------+ + + + documented as of this encounter Procedures + +--------+ + + + | Procedure Name | Priori | Date/Time | Associated Diagnosis | Comments | | | ty | | | | + +--------+ + + + | ANESTHESIA/SEDATION | | 12/02/2008 | | Results for this | | | | 4:15 PM | | procedure are in the | | | | PDT | | results section. | + +--------+ + + + | ORDERS OTHER | | 12/02/2008 | | Results for this | | | | 4:15 PM | | procedure are in the | | | | PDT | | results section. | + +--------+ + + + | LAB RESULTS | | 12/02/2008 | | Results for this | | | | 4:15 PM | | procedure are in the | | | | PDT | | results section. | + +--------+ + + + | OPERATION RECORD | | 12/02/2008 | | Results for this | | | | 12:00 AM | | procedure are in the | | | | PDT | | results section. | + +--------+ + + + documented in this encounter Results ORDERS OTHER (12/02/2008 4:15 PM PDT) + + + | Narrative | Performed At | + + + | | | + + + + + | Procedure Note | + + | Yoko Fulton - 12/02/2008 4:15 PM PDT | | | + + ANESTHESIA/SEDATION (12/02/2008 4:15 PM PDT) + + + | Narrative | Performed At | + + + | | | + + + + + | Procedure Note | + + | Donaldo Faculty - 12/02/2008 4:15 PM PDT | | | + + LAB RESULTS (12/02/2008 4:15 PM PDT) + + + | Narrative | Performed At | + + + | | | + + + + + | Procedure Note | + + | Donaldo, Faculty - 12/02/2008 4:15 PM PDT | | | + + OPERATION RECORD (12/02/2008 12:00 AM PDT) + + + | Narrative | Performed At | + + + | [id number] | | | [id number] | | | [id number] [place] [id number] | | | Date: 12/02/2008 Attending Surgeon: | | | Maria Elena Lieberman M.D. Rand Maker(s): | | | Sami Celis MD | | | Preoperative Diagnosis(es): 1. 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 2. Cataract, left eye. | | | Postoperative Diagnosis(es): 1. Recurrent retinal detachment, | | | tractional, left eye. 2. Cataract, left eye. | | | Procedures Performed: 1. Pars plana vitrectomy, left eye. 2. | | | Pars plana lensectomy, left eye. 3. Retinectomy, left eye. | | | 4. Endolaser, left eye. 5. Air-fluid exchange with | | | instillation of SF6 gas, left eye. Anesthesia: | | | Retrobulbar block with monitored anesthesia care. | | | Complications: None. Specimens: None. Implant: None. | | | Estimated Blood Loss: Minimal. Indications: Mr. Rachel | | | Zo[place] recently underwent removal of silicone oil following retinal | | | detachment repair in the left eye. He noted some improvement in | | | vision, followed by subsequent decrease in vision. He was | | | developing a dense cataract, but beyond this, it could be seen that | | | the patient's posterior pole of the retina was under tension and | | | was elevated. Given this, a detailed discussion of the risks, | | | benefits, and alternatives to repeat retinal detachment repair was | | | held with the patient. All of his questions were answered, and | | | informed consent paperwork was signed. Procedure: The | | | patient was greeted in the preoperative area. His operative left | | | eye was marked. He was taken to the operating room where anesthesia | | | induced gentle sedation. A retrobulbar block consisting of a 1:1 | | | mixture of 0.75% Marcaine and 2% lidocaine was administered | | | without complication. The entire surgical team held a pause in | | | which they agreed upon the appropriate patient, site, and surgery. | | | The left eye was prepped and draped in the usual sterile fashion | | | for ophthalmic surgery. 0.3 forceps and Orquidea scissors were | | | used to fashion limited conjunctival peritomies at the 10 o'clock | | | position and extending from 2 o'clock to approximately 4:30 | | | o'clock. A distance of 3 mm was measured posterior to the limbus | | | at the 10 o'clock, 2 o'clock, and 4 o'clock positions. The MVR | | | blade was used to fashion a sclerotomy at each position. The | | | infusion cannula was checked for function and then inserted and | | | confirmed to be in correct position by direct visualization. It | | | was tied in place with 7-0 Vicryl suture. Light pipe and | | | fragmatome were then used to perform a lensectomy. Some fragments | | | of nucleus did fall to the posterior chamber. The vitreous cutter | | | was then used to djiboutian the anterior capsule of residual cortex. A | | | central anterior capsulotomy was performed with the vitreous | | | cutter. The lens ring was then sutured to the surface of the eye | | | with 7-0 Vicryl sutures. The view into the posterior chamber was | | | achieved with the JOVITA lens. Light pipe and fragmatome were then | | | used to remove the nuclear fragments, which had fallen to the | | | posterior chamber. The retina was then inspected and confirmed to | | | be detached across the posterior pole. There appeared to be | | | traction emanating from the edges of the retina both superiorly and | | | inferotemporally. There did not appear to be any extensive | | | preretinal membrane contributing to this write, but rather the scar | | | tissue in these regions lucius and pulling the retina itself | | | taut resulting in the detachment. Cautery was used to delineate | | | the areas for retinectomy both superiorly and inferotemporally. | | | The retinectomy was achieved with a combination of the curved | | | delaminating scissors and the vitreous cutter. At one point, a | | | relatively brisk hemorrhage was noted along the nasal edge of the | | | inferotemporal retinectomy and was felt to be due to the presence | | | of regressed neovascularization in this area. The infusion | | | pressure was turned up to tamponade the bleed, and the internal | | | cautery was used to cauterize the vessel. Some subretinal blood | | | was noted, but this was extracted using a soft-tipped extractor and | | | appeared to have been removed entirely. An air-fluid exchange was | | | performed, and the retina was seen to lie flat across the | | | posterior pole. Any residual subretinal fluid was drained with a | | | soft-tipped extractor positioned at the 2 retinectomy sites. The | | | retinectomy edges were treated with endolaser. SF6 gas was | | | infused into the eye and the sclerotomy sites were closed. The | | | infusion cannula was then removed and its sclerotomy site closed. | | | Conjunctiva was closed with 6-0 plain gut sutures. The patient | | | tolerated the procedure well, and there were no complications. | | | Postoperative injections of Zinacef, Decadron, and vancomycin were | | | administered. Dr. Maria Elena Lieberman was present for the entirety of | | | the procedure. I certify that the services [...] | Maria Elena Lieberman M.D. J / [id number] / [id number] / [id number] / | | | | | + + + + + | Procedure Note | + + | Sami Celis MD - 12/02/2008 12:00 AM PDT [id number] | | [id number] [place] | | [id number] Date: 12/02/2008 Attending Surgeon: | | Maria Elena Lieberman M.D. Rand Maker(s): Sami Celis MD | | Preoperative Diagnosis(es):1. Recurrent tractional retinal detachment, left eye.2. | | Cataract, left eye. Postoperative Diagnosis(es):1. Recurrent retinal detachment, | | tractional, left eye.2. Cataract, left eye. Procedures Performed:1. Pars plana | | vitrectomy, left eye.2. Pars plana lensectomy, left eye.3. Retinectomy, left | | eye.4. Endolaser, left eye.5. Air-fluid exchange with instillation of SF6 gas, | | left eye. Anesthesia:Retrobulbar block with monitored anesthesia care. | | Complications:None. Specimens:None. Implant:None. Estimated Blood Loss:Minimal. | | Indications:Mr. Wilson Rogers recently underwent removal of silicone oil followingretinal | | detachment repair in the left eye. He noted some improvement invision, followed by | | subsequent decrease in vision. He was developing adense cataract, but beyond this, it | | could be seen that the patient'sposterior pole of the retina was under tension and was | | elevated. Giventhis, a detailed discussion of the risks, benefits, and alternatives | | torepeat retinal detachment repair was held with the patient. All of hisquestions were | | answered, and informed consent paperwork was signed. Procedure:The patient was greeted | | in the preoperative area. His operative left eyewas marked. He was taken to the | | operating room where anesthesia inducedgentle sedation. A retrobulbar block consisting | | of a 1:1 mixture of 0.75%Marcaine and 2% lidocaine was administered without | | complication. [facility] held a pause in which they agreed upon the | | appropriatepatient, site, and surgery. The left eye was prepped and draped in theusual | | sterile fashion for ophthalmic surgery. 0.3 forceps and Westcottscissors were used to | | fashion limited conjunctival peritomies at the 10o'clock position and extending from 2 | | o'clock to approximately 4:30o'clock. A distance of 3 mm was measured posterior to the | | limbus at the 10o'clock, 2 o'clock, and 4 o'clock positions. The MVR blade was used | | tofashion a sclerotomy at each position. The infusion cannula was checkedfor function | | and then inserted and confirmed to be in correct position bydirect visualization. It | | was tied in place with 7-0 Vicryl suture. Lightpipe and fragmatome were then used to | | perform a lensectomy. Some fragmentsof nucleus did fall to the posterior chamber. The | | vitreous cutter was thenused to djiboutian the anterior capsule of residual cortex. A | | central anteriorcapsulotomy was performed with the vitreous cutter. The lens ring was | | thensutured to the surface of the eye with 7-0 Vicryl sutures. The view intothe | | posterior chamber was achieved with the JOVITA lens. Light pipe andfragmatome were then | | used to remove the nuclear fragments, which had fallento the posterior chamber. The | | retina was then inspected and confirmed patrick detached across the posterior pole. There | | appeared to be tractionemanating from the edges of the retina both superiorly | | andinferotemporally. There did not appear to be any extensive preretinalmembrane | | contributing to this write, but rather the scar tissue in theseregions lucius and | | pulling the retina itself taut resulting in thedetachment. Cautery was used to | | delineate the areas for retinectomy bothsuperiorly and inferotemporally.The retinectomy | | was achieved with a combination of the curved delaminatingscissors and the vitreous | | cutter. At one point, a relatively briskhemorrhage was noted along the nasal edge of | | the inferotemporal retinectomyand was felt to be due to the presence of regressed | | neovascularization inthis area. The infusion pressure was turned up to tamponade the | | bleed, andthe internal cautery was used to cauterize the vessel. Some subretinalblood | | was noted, but this was extracted using a soft-tipped extractor andappeared to have been | | removed entirely. An air-fluid exchange wasperformed, and the retina was seen to lie | | flat across the posterior pole.Any residual subretinal fluid was drained with a | | soft-tipped extractorpositioned at the 2 retinectomy sites. The retinectomy edges were | | treatedwith endolaser. SF6 gas was infused into the eye and the sclerotomy siteswere | | closed. The infusion cannula was then removed and its sclerotomy siteclosed. | | Conjunctiva was closed with 6-0 plain gut sutures. The patienttolerated the procedure | | well, and there were no complications.Postoperative injections of Zinacef, Decadron, and | | vancomycin wereadministered. Dr. Maria Elena Lieberman was present for the entirety of | | theprocedure. I certify that the services for which payment is claimed were | | medicallynecessary and that no qualified resident was available to perform theservices. | | I further understand that these services are subject topost-payment review by the | | Medicare carrier. Advanced assistance wasutilized in the portions of the case where | | sophisticated manipulation ofthe globe or the biomicroscopic visualization system was | | required formeeting the surgical objectives. MD Maria Elena Hays, | | Gricelda ZAYAS / [id number] / [id number] / [id number] / T: 12/06/2008 | |dense cataract, but beyond this, it could be seen that the patient's | |posterior pole of the retina was under tension and was elevated. Given | |this, a detailed discussion of the risks, benefits, and alternatives to | |repeat retinal detachment repair was held with the patient. All of his | |questions were answered, and informed consent paperwork was signed. | | | | | |Procedure: | |The patient was greeted in the preoperative area. His operative left eye | |was marked. He was taken to the operating room where anesthesia induced | |gentle sedation. A retrobulbar block consisting of a 1:1 mixture of 0.75% | |Marcaine and 2% lidocaine was administered without complication. The | |entire surgical team held a pause in which they agreed upon the appropriate | |patient, site, and surgery. The left eye was prepped and draped in the | |usual sterile fashion for ophthalmic surgery. 0.3 forceps and Orquidea | |scissors were used to fashion limited conjunctival peritomies at the 10 | |o'clock position and extending from 2 o'clock to approximately 4:30 | |o'clock. A distance of 3 mm was measured posterior to the limbus at the 10 | |o'clock, 2 o'clock, and 4 o'clock positions. The MVR blade was used to | |fashion a sclerotomy at each position. The infusion cannula was checked | |for function and then inserted and confirmed to be in correct position by | |direct visualization. It was tied in place with 7-0 Vicryl suture. Light | |pipe and fragmatome were then used to perform a lensectomy. Some fragments | |of nucleus did fall to the posterior chamber. The vitreous cutter was then | |used to djiboutian the anterior capsule of residual cortex. A central anterior | |capsulotomy was performed with the vitreous cutter. The lens ring was then | |sutured to the surface of the eye with 7-0 Vicryl sutures. The view into | |the posterior chamber was achieved with the JOVITA lens. Light pipe and | |fragmatome were then used to remove the nuclear fragments, which had fallen | |to the posterior chamber. The retina was then inspected and confirmed to | |be detached across the posterior pole. There appeared to be traction | |emanating from the edges of the retina both superiorly and | |inferotemporally. There did not appear to be any extensive preretinal | |membrane contributing to this write, but rather the scar tissue in these | |regions lucius and pulling the retina itself taut resulting in the | |detachment. Cautery was used to delineate the areas for retinectomy both | |superiorly and inferotemporally. | |The retinectomy was achieved with a combination of the curved delaminating | |scissors and the vitreous cutter. At one point, a relatively brisk | |hemorrhage was noted along the nasal edge of the inferotemporal retinectomy | |and was felt to be due to the presence of regressed neovascularization in | |this area. The infusion pressure was turned up to tamponade the bleed, and | |the internal cautery was used to cauterize the vessel. Some subretinal | |blood was noted, but this was extracted using a soft-tipped extractor and | |appeared to have been removed entirely. An air-fluid exchange was | |performed, and the retina was seen to lie flat across the posterior pole. | |Any residual subretinal fluid was drained with a soft-tipped extractor | |positioned at the 2 retinectomy sites. The retinectomy edges were treated | |with endolaser. SF6 gas was infused into the eye and the sclerotomy sites | |were closed. The infusion cannula was then removed and its sclerotomy site | |closed. Conjunctiva was closed with 6-0 plain gut sutures. The patient | |tolerated the procedure well, and there were no complications. | |Postoperative injections of Zinacef, Decadron, and vancomycin were | |administered. Dr. Maria Elena Lieberman was present for the entirety of the | |procedure. | | | | | |I certify [...] | | | |MARQUEZ / ERWIN | |[id number] / [id number] / [id number] / | | | | | | | | | | | | | | | | | | | | | + + documented in this encounter Visit Diagnoses Not on filedocumented in this encounter"
--- OUTSIDE RECORDS SUMMARY | ~2019-10-28 | XMS | Encounter Summary ---
Demographics + + + | Address | [address] | | | [place] [address] | + + + | Home Phone [...] [place] | | | | | [address] | | + + + + + | Ellen Greer | ECON | [address] | | | | | [place] | | + + + + + | Gisell Greer | ECON | Unknown | | + + + + + Care Team Providers + +------+ + | Care Cost Accounting Clerk Name | Role | Phone | + +------+ + PCP | Unavailable | + +------+ + Encounter Details +--------+ + + + + | Date | Type | Department | Care Team | Description | +--------+ + + + + | 02/12/ | Hospital | [facility] | Conversion | Edema of lower | | 2011 | Encounter | [facility] | Transaction, | extremity | | | | ULTRASOUND [address] | Provider Unknown | | | | | [place]E [place]IS | [phone] | | | | | [place], [place] | | | | | | [address] | Mac Villeda, | | | | | [phone] | [address] | | | | | | [address] [facility] | | | | | | [place] [address] | | | | | | [phone] | | | | | | | [...] 2019 | Visit | | [address] [facility] [place] | | | | | | [address] [place] | | | | | | [address] | | | | | | | | +--------+---------+ + + + documented as of this encounter Procedures + +--------+ + + + | Procedure Name | Priori | Date/Time | Associated Diagnosis | Comments | | | ty | | | | + +--------+ + + + | VAS LOWER EXTREMITY | Routin | 02/13/2012 | | Results for this | | ARTERIES BILATERAL | e | 11:28 AM | | procedure are in the | | | | PDT | | results section. | + +--------+ + + + documented in this encounter Results VAS Lower Extremity Arteries Bilateral (02/13/2012 11:28 AM PDT) + + | Specimen | + + | | + + + + + | Narrative | Performed At | + + + | [facility] LOWER [facility]TREMITY ARTERIAL DUPLEX BILAT 02/13/2012 | | | 10:01 AM HISTORY: Discoloration of the feet bilaterally. NATALEE | | | study was suboptimal due to arterial calcifications. Concern for | | | peripheral vascular disease. TECHNIQUE: Duplex ultrasound of the | | | arterial system of both legs was performed. FINDINGS: Compared to | | | the NATALEE study of January 18, 2012. Right leg: Wave forms are | | | biphasic in the posterior tibial artery and triphasic elsewhere. | | | There is calcified plaque throughout the arterial system on the | | | right. Collaterals are noted around the right posterior tibial | | | artery, suggesting high-grade stenosis or occlusion of the posterior | | | tibial artery, difficult to visualize directly. Velocity | | | measurements elsewhere do not suggest a significant stenosis that | | | would measure 50% or greater. Left leg: Wave forms are biphasic | | | in the posterior tibial artery and triphasic elsewhere. There is | | | diffuse calcified plaque, but velocity measurements do not suggest a | | | flow-limiting stenosis would measure 50% or greater. There are | | | questionable collaterals of the left posterior tibial artery, | | | suggesting flow-limiting stenosis or occlusion, difficult to visualize | | | directly with this technique. IMPRESSION: 1. Diffuse calcified | | | plaque, but no evidence of a flow-limiting arterial stenosis above | | | the calves. 2. Biphasic waveforms in the posterior tibial arteries | | | bilaterally with the appearance of collateral vessels, suggesting a | | | possible chronic flow-limiting stenoses. | | + + + + + | Procedure Note | + + | Billy Butler - 12/14/2018 8:46 AM [facility] LOWER [facility]TREMITY | | ARTERIAL DUPLEX BILAT1 10:01 AM HISTORY:Discoloration of the feet bilaterally. | | NATALEE study was suboptimal due to arterial calcifications. Concern for peripheral | | vascular disease. TECHNIQUE:Duplex ultrasound of the arterial system of both legs was | | performed. FINDINGS:Compared to the NATALEE study of January 18, 2012. Right leg:Wave | | forms are biphasic in the posterior tibial artery and triphasic elsewhere. There is | | calcified plaque throughout the arterial system on the right. Collaterals are noted | | around the right posterior tibial artery, suggesting high-grade stenosis or occlusion of | | the posterior tibial artery, difficult to visualize directly. Velocity measurements | | elsewhere do not suggest a significant stenosis that would measure 50% or greater. Left | | leg:Wave forms are biphasic in the posterior tibial artery and triphasic elsewhere. | | There is diffuse calcified plaque, but velocity measurements do not suggest a | | flow-limiting stenosis would measure 50% or greater. There are questionable collaterals | | of the left posterior tibial artery, suggesting flow-limiting stenosis or occlusion, | | difficult to visualize directly with this technique. IMPRESSION:1. Diffuse calcified | | plaque, but no evidence of a flow-limiting arterial stenosis above the calves.2. | | Biphasic waveforms in the posterior tibial arteries bilaterally with the appearance of | | collateral vessels, suggesting a possible chronic flow-limiting stenoses. Electronically | | signed by Baldemar Barrow MD on 02/13/2012 11:53 AM | |There are questionable collaterals of the | | left posterior tibial artery, suggesting flow-limiting stenosis or occlusion, difficult to visualize directly with this technique. | | | |IMPRESSION: | |1. Diffuse calcified plaque, but no evidence of a flow-limiting arterial stenosis above th e calves. | |2. Biphasic waveforms in the posterior tibial arteries bilaterally with the appearance of collateral vessels, suggesting a possible chronic flow-limiting stenoses. | | | | | + + documented in this encounter Visit Diagnoses + + | Diagnosis | + + | Edema of lower extremity Edema | + + documented in this encounter"
--- OUTSIDE RECORDS SUMMARY | ~2019-10-28 | XMS | Encounter Summary ---
Demographics + + + | Address | [address] | | | [place] [address] | + + + | Home Phone | | + + + | Preferred Language | Unknown | + + + | Marital Status | Single | + + + | Jainism Affiliation | CHR | + + + [...] Krissy Rogers | ECON | [place] [address] | | + + + + + | Bay Rogers | ECON | Unknown | | + + + + + Care Team Providers + +------+ + | Care Volunteer Services Director Name | Role | Phone | [...] [place] | | | | | | [place], [place] | | | | | | [address] | | | | | | [phone] | | | | | | | | +--------+---------+ + + + documented as of this encounter Visit Diagnoses Not on filedocumented in this encounter"
--- OUTSIDE RECORDS SUMMARY | ~2019-10-28 | XMS | Encounter Summary ---
Demographics + + + | Address | [address] | | | [place] [address] | + + + | Home Phone | | + + + | Preferred Language | Unknown | + + + | Marital Status | Single | + + + | Adventist Affiliation | CHR | + + + | Race | White | + + + | Ethnic Group | Not or | + + + Author + + + | Author | [facility] | + + + | Organization | [facility] | + + + | Address | Unknown | + + + | Phone | Unavailable | + + + Support + + + + + | Name | Relationship | Address | Phone | + + + + + | Krissy Rogers | BRADEN | [place] [address] | | + + + + + | Bay Rogers | ECON | Unknown | | + + + + + Care Team Providers + +------+ + | Care Professor Of Sport Management Name | Role | Phone | + [...] | Office | [facility] | | DM Eye Manif Type II | | 2008 | Visit | [place] | | ([facility]); | | | | Photography at | | Proliferative | | | | [facility] [address] | | Diabetic Retinopathy | | | | [address] | | ([facility]); Traction | | | | [facility] [place], [address] | | Detachment of Retina | | | | floor [place], [place] | | | | | | [address] | | | +--------+---------+ + + + [...] this encounter Progress Notes Sher Ken - 12/01/2008 3:48 PM Guillermo Sue [facility] today, 12/01/2008, for OCT OS ch. documented in this en counter Plan of Treatment +--------+---------+ + + + | Date | Type | Specialty | Care Team | Description | +--------+---------+ + + + | 01/26/ | Office | Ophthalmology | Maria Elena Lieberman, | | | 2020 | Visit | | [address] | | | | | | [place] | | | | | | [place], [place] | | | | | | [address] | | | | | | [phone] | | | | | | | | +--------+---------+ + + + documented as of this encounter Visit Diagnoses + + | Diagnosis | + + | Type II or unspecified type diabetes mellitus with ophthalmic manifestations, not | | stated as uncontrolled(250.50) ([facility]) Type II or unspecified type diabetes mellitus with | | ophthalmic manifestations, not stated as uncontrolled | + + | Proliferative diabetic retinopathy(362.02) Proliferative diabetic retinopathy | + + | Traction detachment of retina | + + documented in this encounter"
--- OUTSIDE RECORDS SUMMARY | ~2019-10-28 | XMS | Encounter Summary ---
Demographics + + + | Address | [address] | | | [place] [address] | + + + | Home Phone | | + + + | Preferred Language | Unknown | + + + | Marital Status | | + + + | Advent Affiliation | 1013 | + + + | Race | Unknown | + + + | Ethnic Group | Unknown | + + + Author + + + | Author | [facility] | | | and [place] | + + + | Organization | [facility] | | [...] [address] | | | | | [address] | | + + + + + | Ellen Rogers | ECON | [address] | | | | | [place] | | + + + + + | Gisell Rogers | ECON | Unknown | | + + + + + Care Team Providers + +------+ + | Care Floor Coverings Salesperson Name | Role | Phone | + +------+ + | Lizbet Sellers MD | PCP | | + +------+ + Encounter Details +--------+ + + + + | Date | Type | Department | Care Team | Description | +--------+ + + + + | 10/09/ | Hospital | [facility] | Kris Barber MD | | | 2017 | Encounter | MED CTR [facility] OP | [address] [facility] | | | | | [address] | [place], [place] | | | | | [place], [place] | [address] | | | | | [address] | [phone] | | | | | [phone] | | | +--------+ + + + [...] + + + | Blood Pressure | 145/81 | 10/09/2016 1:00 PM | | | | | PDT | | + + + + + | Pulse | 67 | 10/09/2016 1:00 PM | | | | | PDT | | + + + + + | Temperature | 36.7 C (98.1 F) | 10/09/2016 11:53 AM | | | | | PDT | | + + + + + | Respiratory Rate | 16 | 10/09/2016 1:00 PM | | | | | PDT | | + + + + + | Oxygen Saturation | 100% | 10/09/2016 1:00 PM | | | | | PDT | | + + + + + | Inhaled Oxygen | - | - | | | Concentration | | | | + + + + + | Weight | 113.4 kg (250 lb) | 10/09/2016 10:38 AM | | | | | PDT | | + + + + + | Height | 185.4 cm (6' 1") | 10/09/2016 10:38 AM | | | | | PDT | | + + + + + | Body Mass Index | 32.98 | 10/09/2016 10:38 AM | | | | | PDT | | + + + + + documented in this encounter Discharge Instructions Instructions Cindi Faith RN - 10/09/2016Formatting of this note might be different fro m the original. What Is a Hiatal Hernia? Hiatal hernia is whenthearea where the stomach and esophagus meet bulges up through the diaphragm into the chest cavity. In some cases, part of the stomach may bulge above the alyson phragm. Stomach acid may move up into the esophagus and cause symptoms. The symptoms are oft en blamed on gastroesophageal reflux disease (GERD). You may only know about the hernia when it shows up on an X-ray taken for other reasons. What you may feel The hiatus is a normal hole in the diaphragm. The esophagus passes through this hole and le ads to the stomach. In some cases, part of the stomach may bulge above the diaphragm. This b ulge is called a hernia. Stomach acid may move up into the esophagus and cause symptoms. When you eat, the muscle at the hiatus relaxes to allow food to pass into the stomach. It t ightens again to keep food and digestive acids in the stomach. Many people with hiatal hernias have mild symptoms. You may notice the following GERD sympt oms: Heartburn or other chest discomfort A feeling of chest fullness after a meal Frequent burping Acid taste in the mouth Trouble swallowing Treating symptoms If you have been diagnosed with hiatal hernia, these suggestions may help improve symptoms: Lose excess weight. Extra weight puts pressure on the stomach and esophagus. Don t lie down after eating. Sit up for at least an hour after eating. Lying down afte r eating can increase symptoms. Avoid certain foods and drinks. These include fatty foods, chocolate,coffee, mint, and other foods that cause symptoms for you. Don t smoke or drink alcohol. These can worsen symptoms. Look at your medicines. Discuss your medicines with your healthcare provider. Many medic dheeraj can cause symptoms. Consider an antacid medicine. Ask your healthcare provider about abei-vol-vhjpcxe andp rescription medicines that may help. Ask about surgery, if needed. Surgery is a treatment choice for some people. Your health care provider can determine if surgery is an option for you. Date Last Reviewed: 01/22/2016 [employer] ([employer]). [address] [place] [address]. All righ ts reserved. This information is not intended as a substitute for professional medical care. Always follow your healthcare professional's instructions. Procedural Sedation (Adult) You have been given medicine by vein to make you sleep during your surgery. This may have i ncluded both a pain medicine and sleeping medicine. Most of the effects have worn off. But y ou may still have some drowsiness for the next 6 to 8 hours. Home care Follow these guidelines when you get home: For the next 8 hours, you should be watched by a responsible adult. This person should m edilma sure your condition is not getting worse. Don't take any medicine by mouth for pain or for sleep during the next 4 hours. These mi ght react with the medicines you were given in the hospital. This could cause a much stronge r response than usual. Don't drink any alcoholfor the next [address], operate dangerous machinery, or make important business or personal decisio nsduring the next 24 hours. Follow-up care Follow up with your healthcare provider if you are not alert and back to your usual level o f activity within 12 hours. When to seek medical advice Call your healthcare provider right away if any of these occur: Drowsiness gets worse Weakness or dizziness gets worse Repeated vomiting You cannot be awakened Date Last Reviewed: 02/08/2016 [employer] ([employer]). [address] [place] [address]. All righ ts reserved. This information is not intended as a substitute for professional medical care. Always follow your healthcare professional's instructions. Upper GI Endoscopy with Biopsy Upper GI endoscopy is a test that looks inside your upper GI (gastrointestinal) tract. This includes your food pipe (esophagus), stomach, and duodenum (the first part of your small in testine). The test is also known as EGD (esophagogastroduodenoscopy). It is done using a too l called an endoscope. This is a long, thin, flexible tube with a tiny camera at one end. Th e test helps find problems such as ulcers, infection, or growths. During the test, tissue sa mples (biopsies) may be taken and studied for problems. With the aid of an endoscope, the doctor can view the inside of the upper GI tract and also take small tissue samples. Getting ready for your procedure Follow any instructions from your healthcare provider. Tell your provider about any medicines you are taking. You may need to stop taking all or s ome of these before the test. This includes: All prescription medicines Kbzf-sve-icdxosx medicines such as aspirin or ibuprofen Street drugs Herbs, vitamins, and other supplements Follow any directions you re given for not eating or drinking before the procedure. The day of the procedure The procedure takes about 20 minutes. You will go home the same day. Before the procedure begins: You may be given medicine to help you relax or sleep (sedation). This is given through an I V (intravenous) line placed in a vein in your arm or hand. Your throat may be numbed with a spray or liquid. You will be given a small plastic guard to protect your teeth. During the procedure: You lie on your left side. The endoscope is placed in your mouth, and it moves down your throat. Air is used to expandyour GI tract so the lining can be seen more clearly. You may fee l pressure or mild pain from the air. The scope sends pictures of your GI tract to a computerscreen. The esophagus, stomach, and duodenum are viewed. Problems, such as bleeding, redness or swelling (inflammation), or growths may be seen. Using tools inserted through the endoscope, small samples of tissue can be taken. In some ca ses, small growths can be removed. The endoscope is then removed. After the procedure: The provider will talk with you afterward about the results. You ll rest until you can go home. Have an adult family member or friend drive you. Relax for the r est of the day. If you had a biopsy, the results will be ready in about 7 days. Recovering at home You ll likely feel drowsy after the test. A mild sore throat and mild gas and bloating ar e normal. Once home, follow any instructions you have been given. If you had sedation, do no t drive, operate machinery, or make major decisions until the next day. Call your provider if you have any of the following: Fever of 100.4F (38C) or higher, or as directed by your healthcare provider Chest pain Dark-colored stools Severe abdominal pain that doesn't go away when passing gas Sore throat that doesn t go away Trouble swallowing Vomiting, especially with blood Any other signs or symptoms indicated by your provider Follow-up If you had a biopsy, the results will be ready in about 7 days. Your provider will talk wit h you about anymore testing or treatment that is needed. Risks and possible complications include: Sore throat or hoarseness Bloating Nausea Allergic reaction to the sedative or numbing medicine Bleeding during or after the procedure Too much bleeding from the biopsy site (if a biopsy is done) A hole or tear (perforation) in the lining of the digestive tract Inhaling food or fluid into the lungs (aspiration) Irregular heartbeat or cardiac arrest in someone with heart or lung disease Date Last Reviewed: 11/16/201419992648-2808 [employer] ([employer]). [address] [place] [address]. All righ ts reserved. This information is not intended as a substitute for professional medical care. Always follow your healthcare professional's instructions. documented in this encounter Medications at Time [...] +---------+ + + | atorvaSTATin | Take 40 mg by mouth | | 0 | | | | (LIPITOR) 40 mg | nightly. | | | | | | tablet | | | | | | + + + +---------+ + + | calcium carbonate | Take 1 tablet by | | 0 | | | | (TUMS) 500 mg | mouth Daily. | | | | | | chewable tablet | | | | | | + + + +---------+ + + | Cholecalciferol | Take 5,000 Units by | | 0 | | | | (VITAMIN D-3) 5000 | mouth Daily. | | | | | | units CAPS | | | [...] + + + +---------+ + + | gabapentin | Take 600 mg by mouth | | 0 | | | | (NEURONTIN) 300 mg | 3 times daily. | | | | | | capsule | | | | | | + + + +---------+ + + | GLUCAGON EMERGENCY | Inject 1 mg as | | 0 | 09/01/19 | | | 1 MG injection | directed as needed. | | | 17 | | + + + +---------+ + + | | Take 12.5 mg by | | 0 | | | | hydroCHLOROthiazide | mouth 2 times daily. | | | | | | (HYDRODIURIL) 12.5 | | | | | | | MG tablet | | | | | | + + + +---------+ + + | insulin aspart | Inject under the | | 0 | | | | (NOVOLOG) 100 | skin continuous. | | | | | | units/mL | | | | | | | subcutaneous pump | | | | | | | infusion | | | | | | + + + +---------+ + + | metoprolol | Take 100 mg by mouth | | 0 | | | | tartrate (LOPRESSOR) | 2 times daily. | | | | | | 100 mg tablet | | [...] + + +---------+ + + | NOVOLOG FLEXPEN | Inject under the | | 0 | 09/08/19 | | | 100 UNIT/ML | skin 3 times daily | | | 17 | | | injection pen | (before meals). | | | | | + + + +---------+ + + | omeprazole | Take 20 mg by mouth | | 0 | | | | (PRILOSEC) 20 mg | 2 times daily. | | | | | | capsule | | | | | | + + + +---------+ + + | tacrolimus | 1 mg in the morning | | 0 | 10/17/19 | | | (PROGRAF) 1 mg | and 1 mg at night | | | 13 | | | capsule | | | | | | + + + +---------+ + + | zoledronic acid | Inject 5 mg into the | | 0 | | | | (RECLAST) 5 mg/100 | vein once. Once a | | | | | | mL SOLN | year | | | | | + + [...] +---------+ + + | levothyroxine | Take 200 mcg by | | 0 | | | | (SYNTHROID, | mouth every morning | | | | 9 | | LEVOTHROID) 200 mcg | (before breakfast). | | | | | | tablet [...] + + +---------+ + + | losartan (COZAAR) | Take 25 mg by mouth | | 0 | | | | 50 mg tablet | 3 times daily. | | | | 9 | + + + +---------+ + + | MAGNESIUM PO | Take 1 tablet by | | 0 | | | | | mouth 3 times daily. | | | | 9 | + + + +---------+ + + [...] 8 hours as | | | | 9 | | disintegrating | needed for Nausea. | | | | | | tablet [...] + +---------+ + + | tacrolimus | Take 1 mg by mouth 2 | | 0 | | | | (PROGRAF) 1 mg | times daily. | | | | 9 | | capsule | | | | | | + + + +---------+ + + documented as of this encounter H&P Notes Kris Barber MD - 10/09/2016 11:07 AM PDTSURGICAL INTERIM HISTORY & PHYSICAL UPDATE Pt. Name/Age/: Wilson Rogers 46 y.o. 1970 Date of admission: 10/09/2016 The current H&P was reviewed. The patient was reexamined. Re-evaluation of the patient co nfirms the necessity for the scheduled procedure. No change has occurred in the patient s condition since the H&P was completed less than 30 days ago. VERIFICATION OF CONSENT (PARQ) The patient counseled regarding the procedure, its indications, risks, potential complica tions and alternatives. Any questions were answered. Consent was obtained. Electronically signed by: Kris Barber MD, 10/09/2016 11:[address] [facility] signed by Kris Barber MD at 10/09 11:07 AM PDTdocumented in this encounter Miscellaneous Notes Op Note - Kris Barber MD - 10/09/2016 12:02 PM PDT PROCEDURE NOTE PATIENT: Wilson Rogers DATE OF : 1970 DATE OF PROCEDURE: 10/09/16 PROCEDURE PERFORMED: EGD with biopsy INDICATION: nausea, early satiety, bloating ENDOSCOPIST: Sunil Bautista MD ANESTHESIA provided by Dr. Alfred Darden DESCRIPTION OF PROCEDURE: After the risks, benefits and alternatives of the procedure were thoroughly explained, info rmed consent was obtained. The Olympus upper endoscope was introduced through the oropharyn x, and advanced to the descending duodenum. The instrument was then slowly withdrawn as t he mucosa was fully examined. FINDINGS:: LA grade A esophagitis. Z line was seen at 35 cm. 1cm hiatal hernia. The gastric body, antrum and pylorus appear normal. Biopsies were obtained from gastric body and antrum for H. pylori. Retroflexion shows a small hiatal hernia. The duodenal bulb and descending du odenum appear normal. Biopsies were obtained from the duodenum to rule out celiac disease. COMPLICATIONS: None. DIAGNOSTIC IMPRESSION: 1. LA grade A esophagitis 2. Hiatal hernia RECOMMENDATIONS: Repeat 4 hour gastric emptying study Call Dr. Barber's office if you develop increasing abdominal pain, fever, or vomiting of bloo d after the procedure. REPEAT EXAM: None CC: Lizbet Villalobos documented in this enc ounter Plan of Treatment +--------+---------+ + + + | Date | Type | Specialty | Care Team | Description | +--------+---------+ + + + | 01/04/ | Office | Nephrology | Jaren Pelayo MD | | | 2020 | Visit | | [address] [facility] | | | | | | [address] [place] [place], [place] | | | | | | [address] | | | | | | | | +--------+---------+ + + + documented as of this encounter Procedures + +--------+ + + + | Procedure Name | Priori | Date/Time | Associated Diagnosis | Comments | | | ty | | | | + +--------+ + + + | EGD | | 10/09/2016 | Gastro-esophageal | | | | | 11:40 AM | reflux disease | | | | | PDT | without esophagitis | | | | | | Nausea | | + +--------+ + + + | POCT FINGERSTICK INR | STAT | 10/09/2016 | | Results for this | | | | 11:00 AM | | procedure are in the | | | | PDT | | results section. | + +--------+ + + + | POC GLUCOSE | Routin | 10/09/2016 | | Results for this | | | e | 10:56 AM | | procedure are in the | | | | PDT | | results section. | + +--------+ + + + | SURGICAL PATHOLOGY | Routin | 10/09/2016 | | Results for this | | EXAM | e | 12:00 AM | | procedure are in the | | | | PDT | | results section. | + +--------+ + + + documented in this encounter Results POC Fingerstick INR (10/09/2016 11:00 AM PDT) + + + + + + | Component | Value | Ref Range | Performed | Pathologist | | | | | At | Signature | + + + + + + | INR, POC | 1.0Comment: PT 12.6 | 0.9 - 1.2 | | | + + + + + + | Instrument | [id number] | | | | | ID | | | | | + + + + + + + + | Specimen | + + | Blood | + + POC Glucose (10/09/2016 10:56 AM PDT) + +-------+ + + + | Component | Value | Ref Range | Performed | Pathologist | | | | | At | Signature | + +-------+ + + + | Glucose, | 97 | 70 - 109 mg/dL | [facility] | | [facility] | | | [facility] | | [facility] | [facility] - | | | | | | [facility]ATORY | | + +-------+ + + + + + | Specimen | + + | Blood | + + + + + + + | Performing | Address | City/State/Zipcode | Phone Number | | Organization | | | | + + + + + | [facility] | [address] | [place], [place] | [phone] | | [facility] | | [address] | | | - LABORATORY | | | | + + + + + Surgical Pathology Exam (10/09/2016 12:00 AM PDT) + + | Specimen | + + | | + + + + + | Narrative | Performed At | + + + | SPECIMEN(S): A DUODENAL BIOPSY SPECIMEN(S): B GASTRIC BIOPSY | [facility] | | SPECIMEN SOURCE: A. DUODENAL BIOPSY B. GASTRIC BIOPSY CLINICAL | [facility] | | HISTORY: K21.9 (gastroesophageal reflux disease without esophagitis); | | | R11.0 (nausea) MICROSCOPIC DESCRIPTION: Histologic sections of all | | | submitted blocks are examined by light microscopy. These findings, | | | together with the gross examination, support the pathologic diagnosis. | | | FINAL PATHOLOGIC DIAGNOSIS: A. Duodenum, biopsy: - Normal | | | duodenal mucosa. - Negative for inflammation, parasites or celiac | | | sprue. B. Stomach, biopsy: - Benign gastric mucosa with patchy | | | vascular congestion. - Negative for significant inflammation, | | | atrophy, intestinal metaplasia or dysplasia. - Negative for | | | Helicobacter pylori with HE stain. BMH:glc:C2NR GROSS DESCRIPTION: | | | The specimen is received in two parts. A. Received in formalin, | | | labeled and designated "Sue, A, duodenum," the specimen consists of | | | four case-brown tissues averaging 0.2 cm. Submitted in (A1). B. | | | Received in formalin, labeled and designated "Sue, gastric bx," the | | | specimen consists of five case-brown tissues averaging 0.2 cm. | | | Submitted in (B1). tn:DIEGOW:cab PERFORMING LABORATORY: The | | | technical and professional components were performed by [facility] | | | [facility], [address] [place] [address] | | | (Patrol Inspector: Evan Colon D.O.; IA#: [id number]). | | | Diagnostician: Tai Diggs MD Pathologist Electronically | | | Signed 10/10/2016 | | + + + + +---------+ + + | Performing | Address | City/State/Zipcode | Phone Number | | Organization | | | | + +---------+ + + | [facility] | | | | | [facility] | | | | + +---------+ + + documented in this encounter Visit Diagnoses Not on filedocumented in this encounter Administered Medications + +---------+ +------+------+------+ | Medication Order | MAR | Action | Dose | Rate | Site | | | Action | Date | | | | + +---------+ +------+------+------+ | sodium chloride 0.9% (NS) | New Bag | 10/10/19 | | | | | infusion at 25 mL/hr, | | 17 11:41 | | | | | Intravenous, CONTINUOUS, Starting | | AM PDT | | | | | 10/09/16 at 1200, TKO, Pre-op | | | | | | + +---------+ +------+------+------+ +---+---+ | | | +---+---+ documented in this encounter
--- OUTSIDE RECORDS SUMMARY | ~2019-10-28 | XMS | Encounter Summary ---
Demographics + + + | Address | [address] | | | [place] [address] | + + + | Home Phone [...] Author + + + | Author | [facility] | + + + | Organization | [facility] | + + + | Address | Unknown | + + + | Phone | Unavailable | + + + Support + + + + + | Name | Relationship | Address | Phone | + + + + + | Krissy Rogers | BRADEN | [place] [address] | | + + + + + | Bay Rogers | ECON | Unknown | | + + + + + Care Team Providers + +------+ + | Care Cover Cutter Machine Name | Role | Phone | + +------+ + | Bola Chaudhry MD | PCP | | + +------+ + Encounter Details +--------+ + + + + | Date | Type | Department | Care Team | Description | +--------+ + + + + | 08/26/ | Ancillary | LAB IMMUN[facility]ENETIC | | | | 2012 | Orders | [facility] | | | | | | [address] | | | | | | [place], | | | | | | [place] [address] | | | +--------+ + + + [...] | | 2019 | Visit | | [address] | | | | | | [address] | | | | | | [place], [place] | | | | | | [address] | | | | | | [phone] | | | | | | | | +--------+---------+ + + + documented as of this encounter Procedures + +--------+ + + + | Procedure Name | Priori | Date/Time | Associated Diagnosis | Comments | | | ty | | | | + +--------+ + + + | LIT FLOW HLA AB | Routin | 08/26/2012 | | | | QUICK SCREEN I/II | e | 3:37 PM | | | | | | PDT | | | + +--------+ + + + documented in this encounter Results LIT FLOW HLA AB QUICK SCREEN I/II (08/26/2012 3:37 PM PDT) + + | Specimen | + + | Blood - Blood | + + + + + + + | Performing | Address | City/State/Zipcode | Phone Number | | Organization | | | | + + + + + | [facility] - | [address] | [place] [address] | | | IMMUNOGENETICS/TRANS | [address] | | | | [facility] | | | | + + + + + documented in this encounter Visit Diagnoses Not on filedocumented in this encounter"
--- OUTSIDE RECORDS SUMMARY | ~2019-10-28 | XMS | Encounter Summary ---
Demographics + + + | Address | [address] | | | [place] [address] | + + + | Home Phone [...] + + + | Author | [facility] | + + + | Organization | [facility] | + + + | Address | Unknown | + + + | Phone | Unavailable | + + + Support + + + + + | Name | Relationship | Address | Phone | + + + + + | Krissy Rogers | BRADEN | [place] [address] | | + + + + + | Bay Rogers | ECON | Unknown | | + + + + + Care Team Providers + +------+ + | Care Cardiology Technician Name | Role | Phone | + +------+ + | Berna Keyes MD | PCP | | + +------+ + Encounter Details +--------+ + + + + | Date | Type | Department | Care Team | Description | +--------+ + + + + | 09/16/ | Hospital | Cardiac | [facility] | | | 2008 | Encounter | Non-Invasive Testing | [address] | | | | | at [facility] | [address] | | | | | [address] | [place] [address] | | | | | [address] | | | | | | [place], [address] [place] [address] | | | | | | [place], [place] | | | | | | [address] | | | | | | [phone] | | | +--------+ + + + [...] | | 2020 | Visit | | [address] | | | | | | [address] | | | | | | [place], [place] | | | | | | [address] | | | | | | [phone] | | | | | | | | +--------+---------+ + + + documented as of this encounter Visit Diagnoses Not on filedocumented in this encounter"
--- OUTSIDE RECORDS SUMMARY | ~2019-10-28 | XMS | Encounter Summary ---
Demographics + + + | Address | [address] | | | [place] [address] | + + + | Home Phone | | + + + | Preferred Language | Unknown | + + + | Marital Status | Single | + + + | Yazidi Affiliation | CHR | + + + | Race | White | + + + | Ethnic Group | Not or | + + + Author + + + | Author | [facility] | + + + | Organization | [facility] | + + + | Address | Unknown | + + + | Phone | Unavailable | + + + Support + + + + + | Name | Relationship | Address | Phone | + + + + + | Krissy Rogers | BRADEN | [place] [address] | | + + + + + | Bay Rogers | ECON | Unknown | | + + + + + Care Team Providers + +------+ + | Care Sheep And Wheat Farmer Name | Role | Phone | + [...] | | | | RENAL CLINIC | [place], [place] | | | | | | [address] | [address] | | | | | | [address] | Phone: | | | | | | [address] | [phone] | | | | | | [place], [place] | Fax: | | | | | | [address] | [phone] | | | | | | Phone: | | | | | | | [phone] | | | | | | | Fax: | | | | | | | [phone] | | +--------+--------+ + + + + Encounter Details +--------+ + + + + | Date | Type | Department | Care Team | Description | +--------+ + + + + | 01/20/ | [facility] | [facility] | [facility], [facility] [address] | Therapeutic | | 2012 | l Support | [facility] | [address] | Phelbotomy | | | Staff | [address] | [place], [place] | | | | | Ave [place], [place] | [address] | | | | | [address] | | | | | | [phone] | | | +--------+ + + + [...] Manzano | | | | | | [place], [place] | | | | | | [address] | | | | | | [phone] | | | | | | | | +--------+---------+ + + + documented as of this encounter Visit Diagnoses + + | Diagnosis | + + | Polycythemia, secondary - Primary | + + documented in this encounter"
--- OUTSIDE RECORDS SUMMARY | ~2019-10-28 | XMS | Encounter Summary ---
Demographics + + + | Address | [address] | | | [place] [address] | + + + | Home Phone | | + + + | Preferred Language | Unknown | + + + | Marital Status | Single | + + + | Jew Affiliation | CHR | + + + | Race | White | + + + | Ethnic Group | Not or | + + + Author + + + | Author | [facility] | + + + | Organization | [facility] | + + + | Address | Unknown | + + + | Phone | Unavailable | + + + Support + + + + + | Name | Relationship | Address | Phone | + + + + + | Krissy Rogers | BRADEN | [place] [address] | | + + + + + | Bay Rogers | ECON | Unknown | | + + + + + Care Team Providers + +------+ + | Care Herb Grower Name | Role | Phone | + +------+ + | Bola Chaudhry MD | PCP | | + +------+ + Encounter Details +--------+ + + + + | Date | Type | Department | Care Team | Description | +--------+ + + + + | 09/25/ | Ancillary | LAB IMMUNOGENETIC | | | | 2012 | Orders | [facility] | | | | | | [address] | | | | | | Moraima Hernandez [place], | | | | | | [place] [address] | | | +--------+ + + + [...] | | 2019 | Visit | | [address] | | | | | | [place]zano | | | | | | [place], [place] | | | | | | [address] | | | | | | [phone] | | | | | | | | +--------+---------+ + + + documented as of this encounter Procedures + +--------+ + + + | Procedure Name | Priori | Date/Time | Associated Diagnosis | Comments | | | ty | | | | + +--------+ + + + | LIT FLOW HLA AB | Routin | 09/25/2012 | | | | QUICK SCREEN I/II | e | 2:42 PM | | | | | | PDT | | | + +--------+ + + + documented in this encounter Results LIT FLOW HLA AB QUICK SCREEN I/II (09/25/2012 2:42 PM PDT) + + | Specimen | + + | Blood - Blood | + + + + + + + | Performing | Address | City/State/Zipcode | Phone Number | | Organization | | | | + + + + + | [facility] - | [address] | [place] [address] | | | IMMUNOGENETICS/TRANS | [address] | | | | [facility] | | | | + + + + + documented in this encounter Visit Diagnoses Not on filedocumented in this encounter"
--- OUTSIDE RECORDS SUMMARY | ~2019-10-28 | XMS | Encounter Summary ---
Demographics + + + | Address | [address] | | | [place] [address] | + + + | Home Phone | | + + + | Preferred Language | Unknown | + + + | Marital Status | Single | + + + | Pentecostalism Affiliation | CHR | + + + | Race | White | + + + | Ethnic Group | Not or | + + + Author + + + | Author | [facility] | + + + | Organization | [facility] | + + + | Address | Unknown | + + + | Phone | Unavailable | + + + Support + + + + + | Name | Relationship | Address | Phone | + + + + + | Krissy Rogers | BRADEN | [place] [address] | | + + + + + | Bay Rogers | ECON | Unknown | | + + + + + Care Team Providers + +------+ + | Care Gold Leaf Roller Name | Role | Phone | + [...] | | | | | | | [address] | | | | | | | [place] | | | | | | | [place] | | | | | | | [place], [place] | | | | | | | [address] | | | | | | | Phone: | | | | | | | [phone] | | | | | | | Fax: | | | | | | | [phone] | +--------+--------+ + + + + Encounter Details +--------+---------+ + + + | Date | Type | Department | Care Team | Description | +--------+---------+ + + + | 01/25/ | Office | [facility] | Maria Elena Balbuena, | Proliferative | | 2017 | Visit | [facility] at | [address] | diabetic retinopathy | | | | Annabelle Jam[address] | of both eyes | | | | [address] | [place], [place] | without macular | | | | Eye [place], [facility] | [address] | edema associated | | | | floor [place], [place] | [phone] | with type 2 diabetes | | | | [address] | | mellitus (HCC) | | | | | | (Primary Dx) | +--------+---------+ + [...] documented as of this encounter Progress Notes Myron Simeon - 01/25/2017 2:15 PM PDTFormatting of this note might be different from the elvira johnson. [facility] Progress Note 01/25/2017 CC: Follow-up visit Diabetic retinopathy Initial History: Patient mentioned he notices his vision slowly getting worse since last visit. No new flas hes, floaters, or eye pain. Last 3 ambulatory procedures on record: ROS Positive for: Eyes Last edited by Myron Simeon on 01/25/2017 1:55 PM. (History) HPI: Wilson Rogers is a 46 y.o. male Following up per recommendation with no new issues, including eye pain, decreased vision, i ncreased floaters or increased distortion Pain:No pain (0 of 0-10) POH: PPV/PPL/EL/gas [...] mouth. Take 1 tablet by mouth Daily. hydroCHLOROthiazide Take by mouth. HYDROcodone-acetaminophen Take by [...] mouth At Bedtime As Needed. Past Medical History: Diagnosis Date Nephritis and nephropathy, not specified as acute or chronic, with unspecified patholog ical lesion in kidney Type I (juvenile type) diabetes mellitus without mention of complication, not stated as uncontrolled Unspecified essential hypertension Unspecified retinal detachment Past Surgical History Procedure Laterality Date Vitrectomy Retina laser Scleral buckle (sb) Kidney transplant 2012 Social History Substance Use Topics Smoking status: Former Smoker Quit date: 04/23/2010 Smokeless tobacco: Never Used Alcohol use Not on file See Ophthalmology Module for Examination Diagnostics Ordered Right Left OCT CMT (OD):: 209 (01/25/17 1400) No IRF, SRF or Sub-RPE fluid No significant change compared to previous CMT (OS):: 261 (01/25/17 1400) No IRF, SRF or Sub-RPE fluid No significant change compared to previous FA --- --- FUNDUS Infrared fundus photos obtained for documentation & OCT localization Infrared fund us photos obtained for documentation & OCT localization Others IMPRESSION: 46 y.o. male with Ophthalmologic Problems 1) s/p PPV/PPL/retinectomy/EL/gas OS on 12/02/2008 doing well from eye stand point -retina s table and attached 2) Sulcus IOL OS good position - has seen Dr. Zee - jennifer 3) Vision loss OD 2008 most likely due to severe hypoperfusion during dialysis - had brain MRI and findings and exam reviewed in the past with Dr. 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
--- OUTSIDE RECORDS SUMMARY | ~2019-10-28 | XMS | Encounter Summary ---
Demographics + + + | Address | [address] | | | [place] [address] | + + + | Home Phone [...] + + + | Author | [facility] | + + + | Organization | [facility] | + + + | Address | Unknown | + + + | Phone | Unavailable | + + + Support + + + + + | Name | Relationship | Address | Phone | + + + + + | Krissy Rogers | BRADEN | [place] [address] | | + + + + + | Bay Rogers | ECON | Unknown | | + + + + + Care Team Providers + +------+ + | Care Death Claim Clerk Name | Role | Phone | [...] 09/15/ | Office | [facility] | | Proliferative | | 2008 | Visit | [place] | | Diabetic Retinopathy | | | | Photography at | | ([facility]) | | | | [facility] [address] | | | | | [address] | | | | | | Eye [place], [facility] | | | | | | floor [place], [place] | | | | | | [address] | | | +--------+---------+ + + + [...] + documented as of this encounter Progress Letha Coulter - 09/15/2008 4:07 PM LYUDMILAWilson Rogers was seen in the [facility] [place] [facility] ography/Ultrasound Department today, 09/15/2008, for fluorescein, fundus photography and OCT OD. [facility] Treatment +--------+---------+ + + + | Date | Type | Specialty | Care Team | Description | +--------+---------+ + + + | 01/26/ | Office | Ophthalmology | Maria Elena Lieberman, | | | 2019 | Visit | | [address] | | | | | | [address] | | | | | | [place], [place] | | | | | | [address] | | | | | | [phone] | | | | | | | | +--------+---------+ + + + documented as of this encounter Visit Diagnoses + + | Diagnosis | + + | Proliferative diabetic retinopathy(362.02) Proliferative diabetic retinopathy | + + documented in this encounter"
--- OUTSIDE RECORDS SUMMARY | ~2019-10-28 | XMS | Encounter Summary ---
Demographics + + + | Address | [address] | | | [place] [address] | + + + | Home Phone | | + + + | Preferred Language | Unknown | + + + | Marital Status | Single | + + + | Synagogue Affiliation | CHR | + + + | Race | White | + + + | Ethnic Group | Not or | + + + Author + + + | Author | [facility] | + + + | Organization | [facility] | + + + | Address | Unknown | + + + | Phone | Unavailable | + + + Support + + + + + | Name | Relationship | Address | Phone | + + + + + | Krissy Rogers | BRADEN | [place] [address] | | + + + + + | Bay Rogers | ECON | Unknown | | + + + + + Care Team Providers + +------+ + | Care Senior Hr Manager Name | Role | Phone | [...] | | | | | | | Stephanei Burr | | | | | | | [facility] | | | | | | | [place] | | | | | | | [address] | | | | | | | [place], [place] | | | | | | | [address] | | | | | | | Phone: | | | | | | | [phone] | | | | | | | Fax: | | | | | | | [phone] | +--------+--------+ + + + + Encounter Details +--------+ + + + + | Date | Type | Department | Care Team | Description | +--------+ + + + + | 10/21/ | Hospital | [facility] | Maria Elena Lieberman, | | | 2008 | Encounter | [address] | [address] | | | | [address] [facility] | [address] | | | | | [address] | [place], [place] | | | | | [place], [place] | [address] | | | | | [address] | [phone] | | | | | | | [...] Manzano | | | | | | [place], [place] | | | | | | [address] | | | | | | [phone] | | | | | | | [...] Performed At | + + + | [id number] | | | [id number] | | | [id number] [facility] [place] [id number] | | | Date: 10/21/2008 Attending Surgeon: | | | Maria Elena Lieberman M.D. University Administrative Assistant(s): | | | Sami Celis MD | [...] | Maria Elena Lieberman M.D. J / [id number] / [id number] / [id number] / | | | | | + + + + + | Procedure Note | + + | Sami Celis MD - 10/21/2008 12:00 AM PDT [id number] | | [id number] [address] [place] | | [id number] Date: 10/21/2008 Attending Surgeon: | | Maria Elena Lieberman M.D. University Administrative Assistant(s): Sami Celis MD | | Preoperative Diagnosis(es):1. [...] MD Maria Elena Hays M.D. MARQUEZ / [id number] / [id number] / [id number] /D: | | 10/23/2008T: 10/23/2008 | |Mr. [...] | | | |MARQUEZ / ERWIN | |[id number] / [id number] / [id number] / | | | | | | [...]
--- OUTSIDE RECORDS SUMMARY | ~2019-10-28 | XMS | Encounter Summary ---
Demographics + + + | Address | [address] | | | [place] [address] | + + + | Home Phone [...] Krissy Rogers | BRADEN | [place] [address] | | + + + + + | Bay Rogers | ECON | Unknown | | + + + + + Care Team Providers + +------+ + | Care Frame Changer Name | Role | Phone | + +------+ + | Jono Arambula | PCP | | + +------+ + Reason for Visit + + + | Reason | Comments | + + + | Refill Request | | + + + Encounter Details +--------+--------+ + + + | Date | Type | Department | Care Team | Description | +--------+--------+ + + + | 10/21/ | Refill | [facility] | Sami Celis MD | Refill Request | | 2008 | | [facility] at | [address] | | | | | [facility] [address] | [place], [place] | | | | | [address] | [address] | | | | | Eye [place], [facility] | | | | | | [place], [place] | | | | | | [address] | | | +--------+--------+ + + + [...] | 2019 | Visit | | MD Erlin CLINTON | | | | | | [address] | | | | | | [place] | | | | | | [address] | | | | | | [phone] | | | | | | | | +--------+---------+ + + + documented as of this encounter Visit Diagnoses Not on filedocumented in this encounter"
--- OUTSIDE RECORDS SUMMARY | ~2019-10-28 | XMS | Encounter Summary ---
Demographics + + + | Address | [address] | | | [place] [address] | + + + | Home Phone | | + + + | Preferred Language | Unknown | + + + | Marital Status | | + + + | Voodoo Affiliation | 1013 | + + + | Race | Unknown | + + + | Ethnic Group | Unknown | + + + Author + + + | Author | [facility] | | | and [place] | + + + | Organization | [facility] | | | [...] [address] | | | | | [address] | | + + + + + | Ellen Rogers | ECON | [address] | | | | | [place] | | + + + + + | Gisell Rogers | ECON | Unknown | | + + + + + Care Team Providers + +------+ + | Care Records Assistant Name | Role | Phone | + +------+ + | Lizbet Sellers MD | PCP | | + +------+ + Encounter Details +--------+ + + + + | Date | Type | Department | Care Team | Description | +--------+ + + + + | 06/06/ | Orders Only | [facility] | Conversion | | | 2016 | | NEPHROLOGY [place] | Transaction, | | | | | [address] | Provider Unknown | | | | | [address] [place], [place] | | | | | | [address] | (Fax) | | | | | [phone] | | | +--------+ + + + [...] 2019 | Visit | | [address] [facility] [address] | | | | | | [address] [place] | | | | | | [address] | | | | | | | | +--------+---------+ + + + documented as of this encounter Procedures + +--------+ + + + | Procedure Name | Priori | Date/Time | Associated Diagnosis | Comments | | | ty | | | | + +--------+ + + + | EXTERNAL LAB: | Routin | 06/06/2016 | | Results for this | | TACROLIMUS LEVEL, | e | 9:05 AM | | procedure are in the | | LC-MS/MS | | PST | | results section. | + +--------+ + + + | EXTERNAL LAB: CBC | Routin | 06/06/2016 | | Results for this | | | e | 9:05 AM | | procedure are in the | | | | PST | | results section. | + +--------+ + + + | URINALYSIS, | Routin | 06/06/2016 | | Results for this | | MICROSCOPIC ONLY | e | 9:05 AM | | procedure are in the | | | | PST | | results section. | + +--------+ + + + | PROTEIN/CREATININE | Routin | 06/06/2016 | | Results for this | | RATIO, URINE | e | 9:05 AM | | procedure are in the | | | | PST | | results section. | + +--------+ + + + | PARATHYROID HORMONE, | Routin | 06/06/2016 | | Results for this | | INTACT | e | 9:05 AM | | procedure are in the | | | | PST | | results section. | + +--------+ + + + | MAGNESIUM | Routin | 06/06/2016 | | Results for this | | | e | 9:05 AM | | procedure are in the | | | | PST | | results section. | + +--------+ + + + | RENAL FUNCTION PANEL | Routin | 06/06/2016 | | Results for this | | | e | 9:05 AM | | procedure are in the | | | | PST | | results section. | + +--------+ + + + documented in this encounter Results External Lab: Tacrolimus Level, LC-MS/MS (06/06/2016 9:05 AM PST) + +-------+ + + + [...] + +---------+ + + Protein/Creatinine Ratio, Urine (06/06/2016 9:05 AM PST) + +-------+ + + + | Component | Value | Ref Range | Performed | Pathologist | | | | | At | Signature | + +-------+ + + + | Protein/Cre | 54.8 | 0 - 150 | EXTERNAL | [...] | | | + +---------+ + + Urinalysis, Microscopic Only (06/06/2016 9:05 AM PST) + + + + + [...] + + + + + + | Specific | 1.027 | 1.005 - 1.030 | EXTERNAL | | | [place], | | | LAB | | | [...] + + + + + + | Protein, | Negative | | EXTERNAL | | | Urine | | | LAB | | + + + + + + | pH, Urine | 7 | 5 - 9 | EXTERNAL | [...] + + + + | Glucose, | Comment: 1000 | | EXTERNAL | | | [...] + +---------+ + + External Lab: CBC (06/06/2016 9:05 AM PST) + +-------+ + + + | Component | Value | Ref Range | Performed | Pathologist | | | | | At | Signature | + +-------+ + + + | WBC | 7.2 | 4.5 - 11.0 10 | EXTERNAL | | | | | | LAB | | + +-------+ + + + | Non- | 5.35 | 4.3 - 5.7 10 | EXTERNAL | | | Red Blood | | | LAB | | | Cells | | | | | | Counted | | | | | + +-------+ + + + | Hemoglobin | 15.9 | 13.5 - 18.0 | EXTERNAL | | | | | g/dL | LAB | | + +-------+ + + + | Hematocrit, | 47.9 | 41 - 50 % | EXTERNAL | | | POC | | | LAB | | + +-------+ + + + | MCV | 89.5 | 81 - 99 fL | EXTERNAL | | | | | | LAB | | + +-------+ + + + | MCH | 30 | 27 - 33 pg | EXTERNAL | | | | | | LAB | | + +-------+ + + + | MCHC | 33 | 30 - 36 g/dL | EXTERNAL | | | | | | LAB | | + +-------+ + + + | Platelet | 323 | 140 - 440 K/ L | EXTERNAL | | | Count | | | LAB | | | Plasma | | | | | + +-------+ + + + | RDW-CV | 13.4 | 10.5 - 15.0 % | EXTERNAL | | | | | | LAB | | + +-------+ + + + | MPV | | fL | EXTERNAL | | | | | | LAB | | + +-------+ + + + | Differentia | | | EXTERNAL | | | l Type | | | LAB | | + +-------+ + + + | % Segmented | | % | EXTERNAL | | | | | | LAB | | | Neutrophils | | | | | + +-------+ + + + | % | | % | EXTERNAL | | | Lymphocytes | | | LAB | | + +-------+ + + + | % Monocytes | | % | EXTERNAL | | | | | | LAB | | + +-------+ + + + | % | | % | EXTERNAL | | | Eosinophils | | | LAB | | + +-------+ + + + | % Basophils | | % | EXTERNAL | | | [...] + +---------+ + + Parathyroid Hormone, Intact (06/06/2016 9:05 AM PST) + +-------+ + + + | Component | Value | Ref Range | Performed | Pathologist | | | | | At | Signature | + +-------+ + + + | PTH INTACT | 52.84 | 15 - 65 pg/mL | EXTERNAL [...] | | + +---------+ + + Magnesium (06/06/2016 9:05 AM PST) + +---------+ + + + [...] + +---------+ + + Renal Function Panel (06/06/2016 9:05 AM PST) + +---------+ + + + | Component | Value | Ref Range | Performed | Pathologist | | | | | At | Signature | + +---------+ + + + | Glucose, | 361 (A) | 70 - 100 mg/dL | EXTERNAL | | | Fasting | | | LAB | | + +---------+ + + + | BUN | 18 | 6 - 23 mg/dL | EXTERNAL | | | | | | LAB | | + +---------+ + + + | Creatinine | 1.25 | 0.60 - 1.35 | EXTERNAL | [...] +---------+ + + + | Na | 133 | 132 - 143 | EXTERNAL | | | | | mmol/L | LAB | | + +---------+ + + + | K | 4.3 | 3.6 - 5.1 | EXTERNAL | | | | | mmol/L | LAB | | + +---------+ + + + | Cl | 94 (A) | 95 - 112 mmol/L | EXTERNAL | | | | | | LAB | | + +---------+ + + + | CO2 | 25 | 19 - 31 mmol/L | EXTERNAL | | | | | | LAB | | + +---------+ + + + | Anion Gap | 18.3 | 7 - 21 mmol/L | EXTERNAL | | | | | | LAB | | + +---------+ + + + | eGFR if not | | | EXTERNAL | | | | | | LAB | | | DJIBOUTIAN | | | | | + +---------+ + + + | Phosphorus, | 3.9 | 2.5 - 5.0 | EXTERNAL | | | Inorganic | | | LAB | | + +---------+ + + + | BUN/Creatin | 14.4 | 6.0 - 28.6 | EXTERNAL | | | ine Ratio | | | LAB | | + +---------+ + + + | Calcium | 9.4 | 8.4 - 10.2 | EXTERNAL | | | | | mg/dL | LAB | | + +---------+ + + + | Estimated | 62 | mg/dL | EXTERNAL | | | [...]
--- OUTSIDE RECORDS SUMMARY | ~2019-10-28 | XMS | Encounter Summary ---
Demographics + + + | Address | [address] | | | [place] [address] | + + + | Home Phone | | + + + | Preferred Language | Unknown | + + + | Marital Status | | + + + | Mu-Ism Affiliation | 1013 | + + + | Race | Unknown | + + + | Ethnic Group | Unknown | + + + Author + + + | Author | [facility] | | | and [place] | + + + | Organization | [facility] | | | and [place] | + + + | Address | Unknown | + + + | Phone | Unavailable | + + + Support + + + + + | Name | Relationship | Address | Phone | + + + + + | Deysi Montelongo | ECON | [address] | | | | | [facility] | | | | | [address] | | + + + + + | Ellen Rogers | ECON | [address] | | | | | [place] | | + + + + + | Gisell Rogers | ECON | Unknown | | + + + + + Care Team Providers + +------+ + | Care Breaker Machine Tender Name | Role | Phone | + +------+ + | Fatuma Agee NP | PCP | | + +------+ + Reason for Visit + + + | Reason | Comments | + + + | New Patient | Wound, left big toe, over a year | + + + Evaluate & Treat (Routine) + +--------+ + + + + | Status | Reason | Specialty | Diagnoses / | Referred By | Referred To | | | | | Procedures | Contact | Contact | + +--------+ + + + + | Authorized | | Anticoagulati | Diagnoses | Srikanth, | Ajay, | | | | on | Non-healing | Dorota Phoenix, | Roque Perez, ANESTHESIA RESIDENT | | | | | ulcer of | ANESTHESIA RESIDENT [address] | | | | | left foot, | [address] | [place] | | | | | unspecified | [place], | [place], [place] | | | | | ulcer stage | [place] | [address] Phone: | | | | | | [address] | [phone] | | | | | [phone] | Phone: | Fax: | | | | | .[phone]) | [phone] | [phone] | + +--------+ + + + + Encounter Details +--------+---------+ + + + | Date | Type | Department | Care Team | Description | +--------+---------+ + + + | 12/16/ | Office | [facility] | Roque Moss, | Toe ulcer due to | | 2019 | Visit | CLINIC [address] | ANESTHESIA RESIDENT [address] | secondary DM (HCC) | | | | [address] [place] [address] | [place] | (Primary Dx); Edema, | | | | [address] | [address] | unspecified type; | | | | [phone] | | Type 2 diabetes | | | | | | mellitus with | | | | | | diabetic | | | | | | nephropathy, with | | | | | | long-term current | | | | | | use of insulin | | | | | | ([facility]); Proliferative | | | | | | diabetic | | | | | | retinopathy | | | | | | associated with type | | | | | | 1 diabetes | | | | | | mellitus, | | | | | | unspecified | | | | | | laterality, | | | | | | unspecified | | | | | | proliferative | | | | | | retinopathy type | | | | | | ([facility]) | +--------+---------+ + + + Social History + + [...] + + + | Blood Pressure | 110/74 | 12/16/2018 11:22 AM | | | | | PDT | | + + + + + | Pulse | 69 | 12/16/2018 11:22 AM | | | | | PDT | | + + + + + | Temperature | 36.8 C (98.3 F) | 12/16/2018 11:22 AM | | | | | PDT | | + + + + + | Respiratory Rate | - | - | | + [...] + documented in this encounter Progress Notes Roque Moss ARNP - 12/16/2018 11:30 AM PDTFormatting of this note might be different f rom the original. Subjective: Patient ID: Wilson Rogers is a 48 y.o. male. Wound Check He was originally treated more than 14 days ago. The maximum temperature noted was less jose elias n 100.4 F. There has been colored (serous) discharge from the wound. The redness has not bradley nged. The swelling has not changed. There is no pain present. He has no difficulty moving th e affected extremity or digit. Patient's medications, allergies, past medical, surgical, social and family histories were obtained and reviewed as appropriate. Review of Systems Objective: BP 110/74 | Pulse 69 | Temp 36.8 C (98.3 F) (Temporal) | SpO2 96% Physical Exam Constitutional: He is oriented to person, place, and time. He appears well-developed and we ll-nourished. Cardiovascular: Normal rate and regular rhythm. Pulmonary/Chest: Effort normal. Musculoskeletal: Normal range of motion. He exhibits edema. Feet: Neurological: He is alert and oriented to person, place, and time. Skin: Skin is warm. Assessment: CC: Chronic left great toe ulcer S: reports that the ulcer has been present for over a year. The director of hospitality in [facility] tried numerous approaches to healing the ulcer including offloading the weight with a cast to the current wound care which consists of collagen pads. He states that the director of hospitality d id a recent x-ray which indicated a change in the bone structure that is creating pressure i nterfering with wound healing. The surgeon has recommended surgery to scrape the bone. He denies any known indications of osteomyelitis. He complains of left lower leg edema. He is not wearing compression stockings as "they do not seem to make any difference, and they are very hard to put on". O: 48-year-old type I diabetic male, managed by an insulin pump, with retinopathy seen toda y for second opinion regarding a chronic left great toe ulcer. On assessment left lower leg has pitting edema with no erythema. Unable to locate palpable foot pulses, but identified with a Doppler. On the plantar aspect of his left great toe which is edematous there is an irregular shaped open wound with red clean viable tissue throughout. Edges are intact. Per iwound intact. No clinical signs of infection are present. After discussion on the benefit s of a juxta light compression wrap, his measurements were obtained with length from the bertram or to the knee 50 centimeters, ankle 26 cm and calf 40 cm. Wound was then cleansed, measure d and dressed with Iodosorb gel and an outer protective dressing. A: Chronic left great toe ulcer complicated by edema. As I understand the director of hospitality would like to heal the ulcer prior to surgery, I recommended consideration of Apligraf, Grafix or Epi-Fix. He would definitely benefit from compression which would also improve circulation for wound healing. Plan: We will order the juxta lite per his request. Follow-up will be on an as-needed basis. Electronically signed by: NAAWF Marti 12/16/2018 at 11:55 Portions of this chart may have been created with LED [employer]in voice recognition software. Occasi onal wrong-word or sound-alike substitutions may have occurred due to the inherent brady itations of voice recognition software. Please read the chart carefully and recognize, using context, where these substitutions have occurred. 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
--- OUTSIDE RECORDS SUMMARY | ~2019-10-28 | XMS | Encounter Summary ---
Demographics + + + | Address | [address] | | | [place] [address] | + + + | Home Phone [...] Krissy Rogers | BRADEN | [place] [address] | | + + + + + | Bay Rogers | ECON | Unknown | | + + + + + Care Team Providers + +------+ + | Care Forensic Accountant Name | Role | Phone | + +------+ + | Jono Arambula | PCP | | + +------+ + Reason for Visit + + + | Reason | Comments | + + + | Follow-up visit | cancelled seeing another provider Dr Akers | + + + Encounter Details +--------+ + + + + | Date | Type | Department | Care Team | Description | +--------+ + + + + | 01/21/ | Telephone | [facility] | Maria Elena Lieberman, | Follow-up visit | | 2008 | | [facility] at | [address] | (cancelled seeing | | | | Annabelle Jamison [address] | Patrizia Manzano | another provider | | | | [address] | [place], [place] | Oswald) | | | | Eye [facility] | [address] | | | | | [place], [place] | [phone] | | | | | [address] | [...] Manzano | | | | | | [place], [place] | | | | | | [address] | | | | | | [phone] | | | | | | | | +--------+---------+ + + + documented as of this encounter Visit Diagnoses Not on filedocumented in this encounter"
--- OUTSIDE RECORDS SUMMARY | ~2019-10-28 | XMS | Encounter Summary ---
Demographics + + + | Address | [address] | | | [place] [address] | + + + | Home Phone [...] Author + + + | Author | [facility] | + + + | Organization | [facility] | + + + | Address | Unknown | + + + | Phone | Unavailable | + + + Support + + + + + | Name | Relationship | Address | Phone | + + + + + | Krissy Rogers | BRADEN | [place] [address] | | + + + + + | Bay Rogers | ECON | Unknown | | + + + + + Care Team Providers + +------+ + | Care Special Agent In Charge Name | Role | Phone | + [...] (ou) | | 2017 | Visit | [place] | | | | | | Photography at | | | | | | [address] | | | | | | [address] | | | | | | Eye [place], [facility] | | | | | | floor [place], [place] | | | | | | [address] | | | +--------+ + + + [...] Manzano | | | | | | [place], [place] | | | | | | [address] | | | | | | [phone] | | | | | | | | +--------+---------+ + + + documented as of this encounter Visit Diagnoses + + | Diagnosis | + + | 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
--- OUTSIDE RECORDS SUMMARY | ~2019-10-28 | XMS | Encounter Summary ---
Demographics + + + | Address | [address] | | | [place] [address] | + + + | Home Phone | | + + + | Preferred Language | Unknown | + + + | Marital Status | Single | + + + | Lutheran Affiliation | CHR | + + + | Race | White | + + + | Ethnic Group | Not or | + + + Author + + + | Author | [facility] | + + + | Organization | [facility] | + + + | Address | Unknown | + + + | Phone | Unavailable | + + + Support + + + + + | Name | Relationship | Address | Phone | + + + + + | Krissy Rogers | BRADEN | [place] [address] | | + + + + + | Bay Rogers | ECON | Unknown | | + + + + + Care Team Providers + +------+ + | Care Carpet Technician Name | Role | Phone | [...] from eye | | 2008 | | [facility] at | [address] | | | | | [facility] [address] | [place], [place] | | | | | [address] | [address] | | | | | Eye [facility] | | | | | | [place], [place] | | | | | | [phone] | | | +--------+ + + + [...] Manzano | | | | | | [place] | | | | | | [address] | | | | | | [phone] | | | | | | | | +--------+---------+ + + + documented as of this encounter Visit Diagnoses Not on filedocumented in this encounter"
--- OUTSIDE RECORDS SUMMARY | ~2019-10-28 | XMS | Encounter Summary ---
Demographics + + + | Address | [address] | | | [place] [address] | + + + | Home Phone [...] Krissy Rogers | BRADEN | [place] [address] | | + + + + + | Bay Rogers | ECON | Unknown | | + + + + + Care Team Providers + +------+ + | Care Geoduck Diver Name | Role | Phone | + [...] | | | | | Moraima Hernandez [place], | | | | | | [place] [address] | | | +--------+ + + + [...] | | 2019 | Visit | | [address] | | | | | | Patrizia Manzano | | | | | | [place], [place] | | | | | | [address] | | | | | | [phone] | | | | | | | [...] [facility] - | [address] | [place] [address] | | | IMMUNOGENETICS/TRANS | [address] | | | | [facility] | | | | + + + + + documented in this encounter Visit Diagnoses Not on filedocumented in this encounter"
--- OUTSIDE RECORDS SUMMARY | ~2019-10-28 | XMS | Encounter Summary ---
Demographics + + + | Address | [address] | | | [place] [address] | + + + | Home Phone [...] Author | [facility] | + + + | Organization | [facility] | + + + | Address | Unknown | + + + | Phone | Unavailable | + + + Support + + + + + | Name | Relationship | Address | Phone | + + + + + | Krissy Rogers | BRADEN | [place] [address] | | + + + + + | Bay Rogers | ECON | Unknown | | + + + + + Care Team Providers + +------+ + | Care Auditing Specialist Name | Role | Phone | + +------+ + | Berna Keyes MD | PCP | | + +------+ + Encounter Details +--------+ + + + + | Date | Type | Department | Care Team | Description | +--------+ + + + + | 09/16/ | Periodontal Assistant | [facility] | Myron Mohan, | | | 2008 | | [facility] at | [address] | | | | | [address] | [place], [place] | | | | | [place] [address] | [address] | | | | | Eye [facility], [facility] | | | | | | [place], [place] | | | | | | [address] | | | +--------+ + + + [...] Manzano | | | | | | [place] | | | | | | [address] | | | | | | [phone] | | | | | | | | +--------+---------+ + + + documented as of this encounter Visit Diagnoses Not on filedocumented in this encounter"
--- OUTSIDE RECORDS SUMMARY | ~2019-10-28 | XMS | Encounter Summary ---
Demographics + + + | Address | [address] | | | [place] [address] | + + + | Home Phone | | + + + | Preferred Language | Unknown | + + + | Marital Status | | + + + | Yazidi Affiliation | 1013 | + + + | Race | Unknown | + + + | Ethnic Group | Unknown | + + + Author + + + | Author | [facility] | | | and [place] | + + + | Organization | [facility] | | | and [place] | + + + | Address | Unknown | + + + | Phone | Unavailable | + + + Support + + + + + | Name | Relationship | Address | Phone | + + + + + | Deysi Montelongo | ECON | [address] | | | | | [facility] | | | | | [address] | | + + + + + | Ellen Rogers | ECON | [address] | | | | | [place] | | + + + + + | Gisell Rogers | ECON | Unknown | | + + + + + Care Team Providers + +------+ + | Care Pre Press Operator Name | Role | Phone | + +------+ + | David Estrada MD | PCP | Unavailable | + +------+ + Reason for Visit + +--------+ + | Reason | Onset | Comments | | | Date | | + +--------+ + | Appointment | 07/05/ | | | | 2012 | | + +--------+ + Encounter Details +--------+ + + + + | Date | Type | Department | Care Team | Description | +--------+ + + + + | 07/05/ | Telephone | [facility] [place] | [facility], | [facility] | | 2012 | | GASTROENTEROLOGY | NAWAF E[address] | | | | | [address] | [address] | | | | | [address] [place] | [place] | | | | | [address] | [address] | | | | | [phone] | | | +--------+ + + + [...] this encounter Miscellaneous Notes Telephone Encounter - Mercedes Jamison - 07/15/2012 11:39 AM PDTPatient's director of career services called and patient was scheduled for 07/23. P DTTelephone Encounter - Cornel Hui - 07/11/2012 3:00 PM PDTCalled and left message to see if patient would like to schedule with Viki, since we did not hear from patient on . elephone Encounter - Cornel Hui - 07/05/2012 1:24 PM PDTSpoke with patient today about scheduling appt with Viki for gastroporesis, but patient was at dialysis when I called. Patient was unable to check his schedule, so he said that he would call our office back on Sunday07/09/12 to kamryn gomez with Viki. docum ented in this encounter Plan of Treatment +--------+---------+ + + + | Date | Type | Specialty | Care Team | Description | +--------+---------+ + + + | 01/04/ | Office | Nephrology | Jaren Pelayo MD | | | 2020 | Visit | | [address] [facility] | | | | | | [address] [place], [place] | | | | | | [address] | | | | | | | | +--------+---------+ + + + documented as of this encounter Visit Diagnoses Not on filedocumented in this encounter"
--- OUTSIDE RECORDS SUMMARY | ~2019-10-28 | XMS | Encounter Summary ---
Demographics + + + | Address | [address] | | | [place] [address] | + + + | Home Phone | | + + + | Preferred Language | Unknown | + + + | Marital Status | Single | + + + | Hindu Affiliation | CHR | + + + [...] Krissy Rogers | BRADEN | [place] [address] | | + + + + + | Bay Rogers | ECON | Unknown | | + + + + + Care Team Providers + +------+ + | Care Cane Flume Feeding Machine Operator Name | Role | Phone | + +------+ + | Jono Arambula | PCP | | + +------+ + Encounter Details +--------+ + + + + | Date | Type | Department | Care Team | Description | +--------+ + + + + | 08/21/ | Abstract | [facility] | Clinic, | | | 2012 | | Center at [facility] [address] | Gastroenterology | | | | | [address] | | | | | | Mailcode: Center | | | | | | for Health and | | | | | | [facility] | | | | | | [place], [place] | | | | | | [address] | | | | | | [phone] | | | +--------+ + + + [...] Manzano | | | | | | [place], [place] | | | | | | [address] | | | | | | [phone] | | | | | | | | +--------+---------+ + + + documented as of this encounter Visit Diagnoses Not on filedocumented in this encounter"
--- OUTSIDE RECORDS SUMMARY | ~2019-10-28 | XMS | Encounter Summary ---
Demographics + + + | Address | [address] | | | [place] [address] | + + + | Home Phone | | + + + | Preferred Language | Unknown | + + + | Marital Status | | + + + | Advent Affiliation | 1013 | + + + | Race | Unknown | + + + | Ethnic Group | Unknown | + + + Author + + + | Author | [facility] | | | and [place] | + + + | Organization | [facility] | | | and [...] [address] | | | | | [address] | | + + + + + | Ellen Rogers | ECON | [address] | | | | | [place] | | + + + + + | Gisell Rogers | ECON | Unknown | | + + + + + Care Team Providers + +------+ + | Care Safety Compliance Specialist Name | Role | Phone | + +------+ + | Lizbet Sellers MD | PCP | | + +------+ + Encounter Details +--------+ + + + + | Date | Type | Department | Care Team | Description | +--------+ + + + + | 01/02/ | Orders Only | [facility] | Conversion | | | 2015 | | NEPRHOLOGY [place] | Transaction, | | | | | [address] | Provider Unknown | | | | | [address] [place], [place] | [phone] | | | | | [address] | | | | | | [phone] | | | +--------+ + + + [...] 2019 | Visit | | [address] [facility] | | | | | | [address] [place] | | | | | | [address] | | | | | | | | +--------+---------+ + + + documented as of this encounter Procedures + +--------+ + + + | Procedure Name | Priori | Date/Time | Associated Diagnosis | Comments | | | ty | | | | + +--------+ + + + | EXTERNAL LAB: CBC | Routin | 01/03/2016 | | Results for this | | | e | 12:00 AM | | procedure are in the | | | | PDT | | results section. | + +--------+ + + + | PARATHYROID HORMONE, | Routin | 01/03/2016 | | Results for this | | INTACT AND CALCIUM | e | 12:00 AM | | procedure are in the | | | | PDT | | results section. | + +--------+ + + + | MAGNESIUM | Routin | 01/03/2016 | | Results for this | | | e | 12:00 AM | | procedure are in the | | | | PDT | | results section. | + +--------+ + + + | RENAL FUNCTION PANEL | Routin | 01/03/2016 | | Results for this | | | e | 12:00 AM | | procedure are in the | | | | PDT | | results section. | + +--------+ + + + documented in this encounter Results Parathyroid Hormone, Intact and Calcium (01/03/2016 12:00 AM PDT) + + + + + + | Component | Value | Ref Range | Performed | Pathologist | | | | | At | Signature | + + + + + + | PTH Intact | 79.72 (A) | 15 - 65 | EXTERNAL | | | | | | LAB | | + + + + + + | Calcium | 8.8 | 8.4 - 10.2 | EXTERNAL | [...] + +---------+ + + External Lab: CBC (01/03/2016 12:00 AM PDT) + + + + + + | Component | Value | Ref Range | Performed | Pathologist | | | | | At | Signature | + + + + + + | WBC | 7.9 | 4.5 - 11.0 10 | EXTERNAL | | | | | | LAB | | + + + + + + | Non- | 5.31 | 4.3 - 5.7 10 | EXTERNAL | | | Red Blood | | | LAB | | | Cells | | | | | | Counted | | | | | + + + + + + | Hemoglobin | 15.2 | 13.5 - 18.0 | EXTERNAL | | | | | g/dL | LAB | | + + + + + + | Hematocrit, | 47.1 | 41 - 50 % | EXTERNAL | | | POC | | | LAB | | + + + + + + | MCV | 88.7 | 81 - 99 fL | EXTERNAL [...] + + + + | Platelet | 347 | 140 - 440 K/ L | EXTERNAL | | | Count | | | LAB | | | Plasma | | | | | + + + + + + | RDW-CV | 14.4 | 10.5 - 15.0 % | EXTERNAL | | | | | | LAB | | + + + + + + | MPV | | fL | EXTERNAL | | | | | | LAB | | + + + + + + | Differentia | | | EXTERNAL | | | l Type | | | LAB | | + + + + + + | % Segmented | 61.6 | 39 - 80 % | EXTERNAL | | | | | | LAB | | | Neutrophils | | | | | + + + + + + | % | 17.9 (A) | 24 - 44 % | EXTERNAL | | | Lymphocytes | | | LAB | | + + + + + + | % Monocytes | 13.7 (A) | 0 - 12 % | EXTERNAL | | | | | | LAB | | + + + + + + | % | 5.7 | 0 - 6 % | EXTERNAL [...] | | + +---------+ + + Magnesium (01/03/2016 12:00 AM PDT) + +---------+ + + [...] + +---------+ + + Renal Function Panel (01/03/2016 12:00 AM PDT) + +---------+ + + + | Component | Value | Ref Range | Performed | Pathologist | | | | | At | Signature | + +---------+ + + + | Glucose, | 117 (A) | 70 - 100 mg/dL | EXTERNAL | | | Fasting | | | LAB | | + +---------+ + + + | BUN | 14 | 6 - 23 mg/dL | EXTERNAL | | | | | | LAB | | + +---------+ + + + | Creatinine | 1.10 | 0.60 - 1.35 | EXTERNAL | | | | | mg/dL | LAB | | + +---------+ + + + | PHOSPHORUS | | mg/dL | EXTERNAL | | | | | | LAB | | + +---------+ + + + | Albumin | 3.7 | 3.5 - 5.0 | EXTERNAL | | | | | | LAB | | + +---------+ + + + | Na | 138 | 132 - 143 | EXTERNAL | | | | | mmol/L | LAB | | + +---------+ + + + | K | 4.2 | 3.6 - 5.1 | EXTERNAL | | | | | mmol/L | LAB | | + +---------+ + + + | Cl | 102 [...] | | | LAB | | | [place] | | | | | + +---------+ + + + | Phosphorus, | 3.7 | 2.5 - 5.0 | EXTERNAL | | | Inorganic | | | LAB | | + +---------+ + + + | BUN/Creatin | 12.7 | 6.0 - 28.6 | EXTERNAL | | | ine Ratio | | | LAB | | + +---------+ + + + | Calcium | 8.8 | 8.4 - 10.2 | EXTERNAL | | | | | mg/dL | LAB | | + +---------+ + + + | Estimated | 72 | mg/dL | EXTERNAL | | | [...]
--- OUTSIDE RECORDS SUMMARY | ~2019-10-28 | XMS | Encounter Summary ---
Demographics + + + | Address | [address] | | | [place] [address] | + + + | Home Phone | | + + + | Preferred Language | Unknown | + + + | Marital Status | Single | + + + | Anabaptism Affiliation | CHR | + + + [...] Krissy Rogers | BRADEN | [place] [address] | | + + + + + | Bay Rogers | ECON | Unknown | | + + + + + Care Team Providers + +------+ + | Care Manufacturing Recruiter Name | Role | Phone | + [...] Documentati | [facility] | Maria Elena Lieberamn, | MRI Results (mri | | 2008 | on | [facility] at | [address] | report reviewed) | | | | [address] [place] [address] | Patrizia Manzano | | | | | [address] | [place], [place] | | | | | Eye [facility] | [address] | | | | | [place], [place] | [phone] | | | | | [address] | [...] [place] | | | | | | [place] | | | | | | [address] | | | | | | [phone] | | | | | | | | +--------+---------+ + + + documented as of this encounter Visit Diagnoses Not on filedocumented in this encounter"
--- OUTSIDE RECORDS SUMMARY | ~2019-10-28 | XMS | Encounter Summary ---
Demographics + + + | Address | [address] | | | [place] [address] | + + + | Home Phone [...] Author + + + | Author | [facility] | + + + | Organization | [facility] | + + + | Address | Unknown | + + + | Phone | Unavailable | + + + Support + + + + + | Name | Relationship | Address | Phone | + + + + + | Krissy Rogers | BRADEN | [place] [address] | | + + + + + | Bay Rogers | ECON | Unknown | | + + + + + Care Team Providers + +------+ + | Care Solar Water Heater Installer Name | Role | Phone | [...] Description | +--------+--------+ + + + | 12/02/ | Refill | [facility] | Sami Celis MD | Refill Request | | 2008 | | [facility] at | [address] | | | | | [facility] [address] | [place], [place] | | | | | [address] | [address] | | | | | Eye [place], [facility] | | | | | | [place], [place] | | | | | | [address] | | | +--------+--------+ + + + [...] [place] | | | | | | [place] | | | | | | [address] | | | | | | [phone] | | | | | | | | +--------+---------+ + + + documented as of this encounter Visit Diagnoses Not on filedocumented in this encounter"
--- OUTSIDE RECORDS SUMMARY | ~2019-10-28 | XMS | Encounter Summary ---
Demographics + + + | Address | [address] | | | [place] [address] | + + + | Home Phone [...] Author + + + | Author | [facility] | + + + | Organization | [facility] | + + + | Address | Unknown | + + + | Phone | Unavailable | + + + Support + + + + + | Name | Relationship | Address | Phone | + + + + + | Krissy Rogers | BRADEN | [place] [address] | | + + + + + | Bay Rogers | ECON | Unknown | | + + + + + Care Team Providers + +------+ + | Care Anode Builder Name | Role | Phone | + +------+ + | Jono Arambula | PCP | | + +------+ + Reason for Visit +---------+ + | Reason | Comments | +---------+ + | Surgery | wanting to cancel | +---------+ + Encounter Details +--------+ + + + + | Date | Type | Department | Care Team | Description | +--------+ + + + + | 01/15/ | Telephone | [facility] | Maria Elena Lieberman, | Surgery (wanting to | | 2008 | | [facility] at | [address] | [place]) | | | | [facility] [address] | [place] | | | | | [address] | [place], [place] | | | | | [facility], [facility] | [address] | | | | | [place], [place] | [phone] | | | | | [address] | [...] [place] | | | | | | [place] | | | | | | [address] | | | | | | [phone] | | | | | | | | +--------+---------+ + + + documented as of this encounter Visit Diagnoses Not on filedocumented in this encounter"
--- OUTSIDE RECORDS SUMMARY | ~2019-10-28 | XMS | Encounter Summary ---
Demographics + + + | Address | [address] | | | [place] [address] | + + + | Home Phone | | + + + | Preferred Language | Unknown | + + + | Marital Status | | + + + | Anabaptism Affiliation | 1013 | + + + | Race | Unknown | + + + | Ethnic Group | Unknown | + + + Author + + + | Author | [facility] | | | and [place] | + + + | Organization | [facility] | | | [...] [address] | | | | | [address] | | + + + + + | Ellen Rogers | ECON | [address] | | | | | [place] | | + + + + + | Gisell Rogers | ECON | Unknown | | + + + + + Care Team Providers + +------+ + | Care Program Director Group Work Name | Role | Phone | + +------+ + | Lizbet Sellers MD | PCP | | + +------+ + Encounter Details +--------+ + + + + | Date | Type | Department | Care Team | Description | +--------+ + + + + | 09/14/ | Orders Only | [facility] | Conversion | | | 2016 | | [facility] [place] | Transaction, | | | | | [address] | Provider Unknown | | | | | [address] [place], [place] | [phone] | | | | | [address] | | | | | | [phone] | | | +--------+ + + + [...] 2019 | Visit | | [address] [facility] [address] | | | | | | [address] [place] | | | | | | [address] | | | | | | | | +--------+---------+ + + + documented as of this encounter Procedures + +--------+ + + + | Procedure Name | Priori | Date/Time | Associated Diagnosis | Comments | | | ty | | | | + +--------+ + + + | URINALYSIS WITH | Routin | 09/14/2016 | | Results for this | | MICROSCOPIC IF | e | 12:00 AM | | procedure are in the | | INDICATED | | PDT | | results section. | + +--------+ + + + | VITAMIN B-12 | Routin | 09/14/2016 | | Results for this | | | e | 12:00 AM | | procedure are in the | | | | PDT | | results section. | + +--------+ + + + | MICROALBUMIN/CREATIN | Routin | 09/14/2016 | | Results for this | | INE RATIO, URINE | e | 12:00 AM | | procedure are in the | | TEST | | PDT | | results section. | + +--------+ + + + | HEMOGLOBIN | Routin | 09/14/2016 | | Results for this | | | e | 12:00 AM | | procedure are in the | | | | PDT | | results section. | + +--------+ + + + | HEMATOCRIT | Routin | 09/14/2016 | | Results for this | | | e | 12:00 AM | | procedure are in the | | | | PDT | | results section. | + +--------+ + + + | COMPREHENSIVE | Routin | 09/14/2016 | | Results for this | | METABOLIC PANEL | e | 12:00 AM | | procedure are in the | | | | PDT | | results section. | + +--------+ + + + documented in this encounter Results Microalbumin/Creatinine Ratio, Urine (09/14/2016 12:00 AM PDT) + +-------+ + + + | Component | Value | Ref Range | Performed | Pathologist | | | | | At | Signature | + +-------+ + + + | ALBUMIN/CRE | 2.4 | 0 - 30 | EXTERNAL | | | ATININE | [...] Performed At | + + + | MICROALB, URINE 1.3 CREATININE URINE 538 | EXTERNAL LAB | + + + + +---------+ + + | Performing | Address | City/State/Zipcode | Phone Number | | Organization | | | | + +---------+ + + | EXTERNAL LAB | | | | + +---------+ + + Urinalysis with Microscopic if Indicated (09/14/2016 12:00 AM PDT) + + + + + + | Component | Value | Ref Range | Performed | Pathologist | | | | | At | Signature | + + + + + + | Color | Brown | | EXTERNAL | | | | | | LAB | | + + + + + + | Clarity, | Clear | | EXTERNAL | | | Urine | | | LAB | | + + + + + + | Spec Grav, | 1.036 (A) | 1.005 - 1.030 | EXTERNAL | | | Fluid | | | LAB | | + + + + + + | Leukocyte | Comment: 25 | | EXTERNAL | | | [...] + + + + | Total | Comment: 25 | | EXTERNAL | | | [...] + + + + | Ketones | Comment: 5 | | EXTERNAL | | | | | | LAB | | + + + + + + | Bilirubin, | Negative | | EXTERNAL | | | Urine | | | LAB | | + + + + + + | Glucose, | Comment: 100 | | EXTERNAL | | | [...] | | | + +---------+ + + Hemoglobin (09/14/2016 12:00 AM PDT) + + | Specimen | + + | Blood specimen | | (specimen) | + + + + + | Impressions | Performed At | + + + | 13.7 13.5-18.0 | EXTERNAL LAB | + + + + +---------+ + + | Performing | Address | City/State/Zipcode | Phone Number | | Organization | | | | + +---------+ + + | EXTERNAL LAB | | | | + +---------+ + + Hematocrit (09/14/2016 12:00 AM PDT) + +-------+ + + + | Component | Value | Ref Range | Performed | Pathologist | | | | | At | Signature | + +-------+ + + + | Hematocrit, | 42.3 | 41 - 50 % | EXTERNAL [...] | | + +---------+ + + Vitamin B-12 (09/14/2016 12:00 AM PDT) + +-------+ + + + | Component | Value | Ref Range | Performed | Pathologist | | | | | At | Signature | + +-------+ + + + | VITAMIN | 264.1 | 211 - 946 | EXTERNAL | | | B-12 | | | LAB | | + +-------+ + + + + + | Specimen | + + | Blood specimen | | (specimen) | + + + +---------+ + + | Performing | Address | City/State/Zipcode | Phone Number | | Organization | | | | + +---------+ + + | EXTERNAL LAB | | | | + +---------+ + + Comprehensive Metabolic Panel (09/14/2016 12:00 AM PDT) + + + + + + | Component | Value | Ref Range | Performed | Pathologist | | | | | At | Signature | + + + + + + | Glucose, | 124 (A) | 70 - 100 mg/dL | EXTERNAL | | | Fasting | | | LAB | | + + + + + + | BUN | 27 (A) | 6 - 23 mg/dL | EXTERNAL | | | | | | LAB | | + + + + + + | Creatinine | 1.74 (A) | 0.50 - 1.35 | EXTERNAL | | | | | mg/dL | LAB | | + + + + + + | BUN/Creatin | 15.5 | 6.0 - 28.6 | EXTERNAL | | | ine Ratio | | | LAB | | + + + + + + | Calcium | 9.3 | 8.4 - 10.2 | EXTERNAL | | | | | mg/dL | LAB | | + + + + + + | Protein, | 6.9 | 6.0 - 8.0 g/dL | EXTERNAL | | | Total | | | LAB | | + + + + + + | Albumin | 4.0 | 3.5 - 5.0 | EXTERNAL | | | | | | LAB | | + + + + + + | Globulin | 2.9 | 1.8 - 3.5 | EXTERNAL | | | | | | LAB | | + + + + + + | A/G Ratio | 1.4 | 1.1 - 2.4 | EXTERNAL | | | | | | LAB | | + + + + + + | Bilirubin | 1.7 (A) | 0.0 - 1.2 mg/dL | EXTERNAL | | | Total | | | LAB | | + + + + + + | ALP, | 83 | 31 - 120 | EXTERNAL | | | External | | | LAB | | + + + + + + | ALT | 29 | 7 - 52 U/L | EXTERNAL | | | | | | LAB | | + + + + + + | AST | 26 | 13 - 39 U/L | EXTERNAL | | | | | | LAB | | + + + + + + | Na | 140 | 132 - 143 | EXTERNAL | | | | | mmol/L | LAB | | + + + + + + | K | 4.3 | 3.6 - 5.1 | EXTERNAL | | | | | mmol/L | LAB | | + + + + + + | Cl | 101 | 95 - 112 mmol/L | EXTERNAL | | | | | | LAB | | + + + + + + | CO2 | 26 | 19 - 31 mmol/L | EXTERNAL | | | | | | LAB | | + + + + + + | Anion Gap | 17.3 | 7 - 21 mmol/L | EXTERNAL | | | | | | LAB | | + + + + + + | Estimated | 42 (A) | 60 mg/dL | EXTERNAL | | | GFR [...]
--- OUTSIDE RECORDS SUMMARY | ~2019-10-28 | XMS | Encounter Summary ---
Demographics + + + | Address | [address] | | | [place] [address] | + + + | Home Phone | | + + + | Preferred Language | Unknown | + + + | Marital Status | Single | + + + | Muslim Affiliation | CHR | + + + [...] Krissy Rogers | BRADEN | [place] [address] | | + + + + + | Bay Rogers | ECON | Unknown | | + + + + + Care Team Providers + +------+ + | Care Senior Electrical Engineer Name | Role | Phone | [...] posterior | | 2017 | Visit | [place] | [address] | capsular | | | | ogy at [facility] [address] | [place], [place] | opacification | | | | [address] Mailcode: | [id number] | (Primary Dx) | | | | [address] | [phone] | | | | | Health and Healing, | | | | | | | | | | | | Floor [place], [place] | | | | | | [address] | | | | | | [phone] | | | +--------+---------+ + + + [...] and Plan: Exam Date: 02/27/2017 Patient:Wilson Rogers ([id number]) Impression: 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 year old male from [place] : Patient presents with: YAG laser post [...] scanned intake form or preadmission data in [facility] for full Family ocular and medical his [...] I have reviewed and edited history and welding technician documentation, and performed all other el ements to above examination documentation. Sherrie Workman MD Baseball Inspector And Repairer Comprehensive Ophthalmology 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
--- OUTSIDE RECORDS SUMMARY | ~2019-10-28 | XMS | Encounter Summary ---
Demographics + + + | Address | [address] | | | [place] [address] | + + + | Home Phone | | + + + | Preferred Language | Unknown | + + + | Marital Status | | + + + | Orthodox Affiliation | 1013 | + + + | Race | Unknown | + + + | Ethnic Group | Unknown | + + + Author + + + | Author | [facility] | | | and [place] | + + + | Organization | [facility] | | | [...] [address] | | | | | [address] | | + + + + + | Ellen Rogers | ECON | [address] | | | | | [place] | | + + + + + | Gisell Rogers | ECON | Unknown | | + + + + + Care Team Providers + +------+ + | Care Silo Worker Name | Role | Phone | + +------+ + | Lizbet Sellers MD | PCP | | + +------+ + Encounter Details +--------+ + + + + | Date | Type | Department | Care Team | Description | +--------+ + + + + | 01/04/ | Orders Only | [facility] | Conversion | | | 2015 | | [facility] [place] | Transaction, | | | | | [address] | Provider Unknown | | | | | [address] [place], [place] | [phone] | | | | | [address] | | | | | | [phone] | | | +--------+ + + + [...] 2019 | Visit | | [address] [facility] | | | | | | [address] [place] | | | | | | [address] | | | | | | | | +--------+---------+ + + + documented as of this encounter Procedures + +--------+ + + + | Procedure Name | Priori | Date/Time | Associated Diagnosis | Comments | | | ty | | | | + +--------+ + + + | URINALYSIS, | Routin | 01/05/2016 | | Results for this | | MICROSCOPIC ONLY | e | 12:00 AM | | procedure are in the | | | | PDT | | results section. | + +--------+ + + + | PROTEIN/CREATININE | Routin | 01/05/2016 | | Results for this | | RATIO, URINE | e | 12:00 AM | | procedure are in the | | | | PDT | | results section. | + +--------+ + + + documented in this encounter Results Protein/Creatinine Ratio, Urine (01/05/2016 12:00 AM PDT) + +-------+ + + + | Component | Value | Ref Range | Performed | Pathologist | | | | | At | Signature | + +-------+ + + + | Protein/Cre | 58.8 | 0 - 150 | EXTERNAL | [...] + +---------+ + + Urinalysis, Microscopic Only (01/05/2016 12:00 AM PDT) + + + + [...] + + + + | Specific | 1.011 | 1.005 - 1.30 | EXTERNAL | | | [place], | | | LAB | | | [...] + + + | Glucose, | Comment: 50 | | EXTERNAL | | | Urine [...]
--- OUTSIDE RECORDS SUMMARY | ~2019-10-28 | XMS | Encounter Summary ---
Demographics + + + | Address | [address] | | | [place] [address] | + + + | Home Phone [...] Author + + + | Author | [facility] | + + + | Organization | [facility] | + + + | Address | Unknown | + + + | Phone | Unavailable | + + + Support + + + + + | Name | Relationship | Address | Phone | + + + + + | Krissy Rogers | BRADEN | [place] [address] | | + + + + + | Bay Rogers | ECON | Unknown | | + + + + + Care Team Providers + +------+ + | Care Director Of Oncology Name | Role | Phone | + +------+ + | Jono Arambula | PCP | | + +------+ + Reason for Visit + + + | Reason | Comments | + + + | Other | Low Vision Medical History Questionnaire | + + + | Other | Outside Records | + + + | Referral | [facility] | + + + Encounter Details +--------+ + + + + | Date | Type | Department | Care Team | Description | +--------+ + + + + | 10/14/ | Documentati | [facility] | Lizett Mcadams, OD | Other (Low Vision | | 2009 | on | [place] [facility] | [address] | Medical History | | | | [address] | Blvd [place], [place] | Questionnaire ); | | | | Mailcode: [facility] | [id number] | Other (Outside | | | | [place] for [facility] | | Records ); Referral | | | | and Healing, | | ([facility] | | | | | | for the [facility]) | | | | Floor [place], [place] | | | | | | [address] | | | | | | [phone] | | | +--------+ + + + [...] | | 2019 | Visit | | [address] | | | | | | [place]ia [place] | | | | | | [place], [place] | | | | | | [address] | | | | | | [phone] | | | | | | | | +--------+---------+ + + + documented as of this encounter Visit Diagnoses Not on filedocumented in this encounter"
--- OUTSIDE RECORDS SUMMARY | ~2019-10-28 | XMS | Encounter Summary ---
Demographics + + + | Address | [address] | | | [place] [address] | + + + | Home Phone [...] [address] | | | | | [facility] [place] | | | | | [address] | | + + + + + | Ellen Rogers | ECON | [address] | | | | | [place] | | + + + + + | Gisell Rogers | ECON | Unknown | | + + + + + Care Team Providers + +------+ + | Care Lab Support Service Tech Name | Role | Phone | + +------+ + | David Estrada MD | PCP | Unavailable | + +------+ + Encounter Details +--------+ + + + + | Date | Type | Department | Care Team | Description | +--------+ + + + + | 07/17/ | Abstract | [facility] | [facility], | | | 2012 | | GASTROENTEROLOGY | [address] | | | | | [address] [place] | [address] | | | | | [address] [place], [place] | [place], [place] | | | | | [address] | [address] | | | | | [phone] | | | +--------+ + + + [...] 2020 | Visit | | [address] [facility] | | | | | | [address] [facility] [place] | | | | | | [address] | | | | | | | | +--------+---------+ + + + documented as of this encounter Visit Diagnoses Not on filedocumented in this encounter"
--- OUTSIDE RECORDS SUMMARY | ~2019-10-28 | XMS | Encounter Summary ---
Demographics + + + | Address | [address] | | | [place] [address] | + + + | Home Phone [...] + | Author | [facility] | | | and [place] | + + + | Organization | [facility] | | | and [...] [place] | | | | | [address] | | + + + + + | Ellen Greer | ECON | [address] | | | | | [place] | | + + + + + | Gisell Greer | ECON | Unknown | | + + + + + Care Team Providers + +------+ + | Care Upholstery Tech Name | Role | Phone | + +------+ + PCP | Unavailable | + +------+ + Encounter Details +--------+ + + + + | Date | Type | Department | Care Team | Description | +--------+ + + + + | 11/17/ | Hospital | [facility] | Jaren Pelayo MD | End stage renal | | 2009 | Encounter | [facility] | [address] [facility] | disease (HCC) | | | | CLINICAL DECISION | [address] [place], [place] | | | | | [address] [facility] | [address] | | | | | [place] | | | | | | [address] | | | | | | [phone] | | | +--------+ + + + [...] [place] | | | | | | [address] | | | | | | | | +--------+---------+ + + + documented as of this encounter Procedures + +--------+ + + + | Procedure Name | Priori | Date/Time | Associated Diagnosis | Comments | | | ty | | | | + +--------+ + + + | IR INJECTION | Routin | 11/17/2009 | | Results for this | | DIALYSIS CIRCUIT W | e | 4:34 PM | | procedure are in the | | ANGIOPLASTY | | PDT | | results section. | + +--------+ + + + | IR INJECTION | Routin | 11/17/2009 | | Results for this | | DIALYSIS CIRCUIT | e | 4:34 PM | | procedure are in the | | | | PDT | | results section. | + +--------+ + + + documented in this encounter Results IR Inj Dialysis Circuit w Angioplasty (11/17/2009 4:34 PM PDT) + + | Specimen | + + | | + + + + + | Narrative | Performed At | + + + | [facility] [address] Ph: | | | Patient Name: WILSON GREER Date of : | | | 1970 Medical Record: [id number] Account: [id number] | | | Exam Date/Time: 11/17/2009 17:30 Ordering | | | Physician: JAREN PELAYO Order Detail: [id number] Exam Description: IR | | | VENOUS FISTULA/GRAFT MANAGER REGISTRATION | | | | | | EXAMINATION Right brachia cephalic fistulogram and angioplasty of | | | the focal stenosis in proximal right cephalic vein using 7 mm x 4 cm | | | balloon catheter. REASON: 39 year-old white male with a | | | chronic kidney disease stage V presents with increasing venous | | | pressures and prolonged bleeding after dialysis. MEDICATIONS: | | | Isovue-200 30 cc, heparin 3900 units intravenous, Versed 1 mg | | | intravenous, fentanyl 50-mcg intravenous. Intra-procedure sedation | | | time 11 minutes. The radiation dose 12 mGray, fluoroscopy time | | | 0.8minutes. PROCEDURE: Informed written consent obtained | | | from the patient after explaining the procedure, risks and | | | alternatives. Patient understood the discussion and expressed a | | | wish to proceed. Patient was placed supine on the x-ray table. The | | | right arm prepped in the usual sterile fashion. The right arm AV | | | fistula was accessed using micropuncture needle and exchanged for | | | 4-Belarusian micropuncture sheath. Initial fistula pressure was obtained | | | and fistulogram obtained from the right cubital fossa to the right | | | atrium. Given the focal, more than 80% stenosis in proximal | | | cephalic vein immediately distal to venous buttonhole, I decided to | | | perform angioplasty of the venous lesions. 4-Belarusian micropuncture | | | sheath was exchanged for 6-Belarusian short sheath over a 0.035, angled | | | Glidewire. 7 mm x 4-cm balloon catheter was advanced over the | | | 0.035, angled Glidewire. Balloon was positioned across stenosis in | | | proximal right cephalic vein and angioplasty was performed. During | | | inflation of the balloon across the venous anastomosis Reflux | | | evaluation of the arteriovenous anastomosis obtained. Subsequently, | | | balloon was deflated and a final fistulogram obtained from the right | | | cubital fossa to the right atrium. Final fistula pressure and | | | arterial pressures were obtained. All catheters and wires then | | | removed and hemostasis obtained with manual pressure. No | | | immediate procedural complications. Patient tolerated the procedure | | | well. FINDINGS 1. Initial fistula pressure 109/52, arterial | | | pressure 168/81, final fistula pressure 77/40. 2. Right brachia | | | cephalic fistulogram shows focal, more than 80% stenosis in proximal | | | right cephalic vein immediately distal to the venous buttonhole. | | | Rest of the draining axillary vein, subclavian vein, right brachia | | | cephalic vein and superior vena cava are widely patent. 3. | | | Successful angioplasty of the focal right cephalic venous stenosis | | | using 7-mm by 4 cm high pressure balloon catheter with no residual | | | anatomic stenosis. IMPRESSION: 1. Successful right | | | brachiocephalic fistulogram and angioplasty of the focal stenosis in | | | proximal right cephalic vein using 7 mm x 4 cm balloon with no | | | residual anatomic stenosis and good hemodynamic results. | | | | | + + + + + | Procedure Note | + + | Billy Butler - 12/15/2018 8:49 PM PDT | | [facility] | | [facility] [address] | | | | | | Patient Name: WILSON GREER | | Date of : 1970 | | Medical Record: [id number] | | Account: [id number] | | | | | | Exam Date/Time: 11/17/2009 17:30 | | Ordering Physician: JAREN PELAYO | | Order Detail: [id number] | | Exam Description: IR VENOUS FISTULA/GRAFT MANAGER REGISTRATION | | | | EXAMINATION | | | | Right brachia cephalic fistulogram and angioplasty of the focal stenosis in | | proximal right cephalic vein using 7 mm x 4 cm balloon catheter. | | | | REASON: | | | | | | 39 year-old white male with a chronic kidney disease stage V presents with | | increasing venous pressures and prolonged bleeding after dialysis. | | | | MEDICATIONS: | | | | | | Isovue-200 30 cc, heparin 3900 units intravenous, Versed 1 mg intravenous, | | fentanyl 50-mcg intravenous. Intra-procedure sedation time 11 minutes. | | The radiation dose 12 mGray, fluoroscopy time 0.8minutes. | | | | PROCEDURE: | | | | | | Informed written consent obtained from the patient after explaining the | | procedure, risks and alternatives. Patient understood the discussion and | | expressed a wish to proceed. | | Patient was placed supine on the x-ray table. The right arm prepped in the | | usual sterile fashion. The right arm AV fistula was accessed using | | micropuncture needle and exchanged for 4-Belarusian micropuncture sheath. | | Initial fistula pressure was obtained and fistulogram obtained from the | | right cubital fossa to the right atrium. Given the focal, more than 80% | | stenosis in proximal cephalic vein immediately distal to venous buttonhole, | | I decided to perform angioplasty of the venous lesions. 4-Belarusian | | micropuncture sheath was exchanged for 6-Belarusian short sheath over a 0.035, | | angled Glidewire. 7 mm x 4-cm balloon catheter was advanced over the | | 0.035, angled Glidewire. Balloon was positioned across stenosis in | | proximal right cephalic vein and angioplasty was performed. During | | inflation of the balloon across the venous anastomosis Reflux evaluation of | | the arteriovenous anastomosis obtained. Subsequently, balloon was deflated | | and a final fistulogram obtained from the right cubital fossa to the right | | atrium. Final fistula pressure and arterial pressures were obtained. All | | catheters and wires then removed and hemostasis obtained with manual | | pressure. | | | | No immediate procedural complications. Patient tolerated the procedure | | well. | | | | FINDINGS | | 1. Initial fistula pressure 109/52, arterial pressure 168/81, final | | fistula pressure 77/40. | | 2. Right brachia cephalic fistulogram shows focal, more than 80% | | stenosis in proximal right cephalic vein immediately distal to the venous | | buttonhole. Rest of the draining axillary vein, subclavian vein, right | | brachia cephalic vein and superior vena cava are widely patent. | | 3. Successful angioplasty of the focal right cephalic venous stenosis | | using 7-mm by 4 cm high pressure balloon catheter with no residual anatomic | | stenosis. | | | | IMPRESSION: | | 1. Successful right brachiocephalic fistulogram and angioplasty of the | | focal stenosis in proximal right cephalic vein using 7 mm x 4 cm balloon | | with no residual anatomic stenosis and good hemodynamic results. | | | | | + + IR Inj Dialysis Circuit (11/17/2009 4:34 PM PDT) + + | Specimen | + + | | + + + + + | Narrative | Performed At | + + + | [facility] [address] Ph: | | | Patient Name: WILSON GREER Date of : | | | 1970 Medical Record: [id number] Account: [id number] | | | Exam Date/Time: 11/17/2009 14:30 Ordering | | | Physician: JAREN PELAYO Order Detail: [id number] Exam Description: AV | | | FISTULAGRAM ACCESS | | | | | | EXAMINATION Right brachia cephalic fistulogram and angioplasty of | | | the focal stenosis in proximal right cephalic vein using 7 mm x 4 cm | | | balloon catheter. REASON: 39 year-old white male with a | | | chronic kidney disease stage V presents with increasing venous | | | pressures and prolonged bleeding after dialysis. MEDICATIONS: | | | Isovue-200 30 cc, heparin 3900 units intravenous, Versed 1 mg | | | intravenous, fentanyl 50-mcg intravenous. Intra-procedure sedation | | | time 11 minutes. The radiation dose 12 mGray, fluoroscopy time | | | 0.8minutes. PROCEDURE: Informed written consent obtained | | | from the patient after explaining the procedure, risks and | | | alternatives. Patient understood the discussion and expressed a | | | wish to proceed. Patient was placed supine on the x-ray table. The | | | right arm prepped in the usual sterile fashion. The right arm AV | | | fistula was accessed using micropuncture needle and exchanged for | | | 4-Belarusian micropuncture sheath. Initial fistula pressure was obtained | | | and fistulogram obtained from the right cubital fossa to the right | | | atrium. Given the focal, more than 80% stenosis in proximal | | | cephalic vein immediately distal to venous buttonhole, I decided to | | | perform angioplasty of the venous lesions. 4-Belarusian micropuncture | | | sheath was exchanged for 6-Belarusian short sheath over a 0.035, angled | | | Glidewire. 7 mm x 4-cm balloon catheter was advanced over the | | | 0.035, angled Glidewire. Balloon was positioned across stenosis in | | | proximal right cephalic vein and angioplasty was performed. During | | | inflation of the balloon across the venous anastomosis Reflux | | | evaluation of the arteriovenous anastomosis obtained. Subsequently, | | | balloon was deflated and a final fistulogram obtained from the right | | | cubital fossa to the right atrium. Final fistula pressure and | | | arterial pressures were obtained. All catheters and wires then | | | removed and hemostasis obtained with manual pressure. No | | | immediate procedural complications. Patient tolerated the procedure | | | well. FINDINGS 1. Initial fistula pressure 109/52, arterial | | | pressure 168/81, final fistula pressure 77/40. 2. Right brachia | | | cephalic fistulogram shows focal, more than 80% stenosis in proximal | | | right cephalic vein immediately distal to the venous buttonhole. | | | Rest of the draining axillary vein, subclavian vein, right brachia | | | cephalic vein and superior vena cava are widely patent. 3. | | | Successful angioplasty of the focal right cephalic venous stenosis | | | using 7-mm by 4 cm high pressure balloon catheter with no residual | | | anatomic stenosis. IMPRESSION: 1. Successful right | | | brachiocephalic fistulogram and angioplasty of the focal stenosis in | | | proximal right cephalic vein using 7 mm x 4 cm balloon with no | | | residual anatomic stenosis and good hemodynamic results. | | | | | + + + + + | Procedure Note | + + | Billy Butler Conversion - 12/15/2018 8:49 PM PDT | | [facility] | | [facility] [address] | | | | | | Patient Name: WILSON GREER | | Date of : 1970 | | Medical Record: [id number] | | Account: [id number] | | | | | | Exam Date/Time: 11/17/2009 14:30 | | Ordering Physician: JAREN PELAYO | | Order Detail: [id number] | | Exam Description: AV FISTULAGRAM ACCESS | | | | EXAMINATION | | | | Right brachia cephalic fistulogram and angioplasty of the focal stenosis in | | proximal right cephalic vein using 7 mm x 4 cm balloon catheter. | | | | REASON: | | | | | | 39 year-old white male with a chronic kidney disease stage V presents with | | increasing venous pressures and prolonged bleeding after dialysis. | | | | MEDICATIONS: | | | | | | Isovue-200 30 cc, heparin 3900 units intravenous, Versed 1 mg intravenous, | | fentanyl 50-mcg intravenous. Intra-procedure sedation time 11 minutes. | | The radiation dose 12 mGray, fluoroscopy time 0.8minutes. | | | | PROCEDURE: | | | | | | Informed written consent obtained from the patient after explaining the | | procedure, risks and alternatives. Patient understood the discussion and | | expressed a wish to proceed. | | Patient was placed supine on the x-ray table. The right arm prepped in the | | usual sterile fashion. The right arm AV fistula was accessed using | | micropuncture needle and exchanged for 4-Belarusian micropuncture sheath. | | Initial fistula pressure was obtained and fistulogram obtained from the | | right cubital fossa to the right atrium. Given the focal, more than 80% | | stenosis in proximal cephalic vein immediately distal to venous buttonhole, | | I decided to perform angioplasty of the venous lesions. 4-Belarusian | | micropuncture sheath was exchanged for 6-Belarusian short sheath over a 0.035, | | angled Glidewire. 7 mm x 4-cm balloon catheter was advanced over the | | 0.035, angled Glidewire. Balloon was positioned across stenosis in | | proximal right cephalic vein and angioplasty was performed. During | | inflation of the balloon across the venous anastomosis Reflux evaluation of | | the arteriovenous anastomosis obtained. Subsequently, balloon was deflated | | and a final fistulogram obtained from the right cubital fossa to the right | | atrium. Final fistula pressure and arterial pressures were obtained. All | | catheters and wires then removed and hemostasis obtained with manual | | pressure. | | | | No immediate procedural complications. Patient tolerated the procedure | | well. | | | | FINDINGS | | 1. Initial fistula pressure 109/52, arterial pressure 168/81, final | | fistula pressure 77/40. | | 2. Right brachia cephalic fistulogram shows focal, more than 80% | | stenosis in proximal right cephalic vein immediately distal to the venous | | buttonhole. Rest of the draining axillary vein, subclavian vein, right | | brachia cephalic vein and superior vena cava are widely patent. | | 3. Successful angioplasty of the focal right cephalic venous stenosis | | using 7-mm by 4 cm high pressure balloon catheter with no residual anatomic | | stenosis. | | | | IMPRESSION: | | 1. Successful right brachiocephalic fistulogram and angioplasty of the | | focal stenosis in proximal right cephalic vein using 7 mm x 4 cm balloon | | with no residual anatomic stenosis and good hemodynamic results. | | | | | + + documented in this encounter Visit Diagnoses + + | Diagnosis | + + | End stage renal disease (HCC) End stage renal disease | + + documented in this encounter"
--- OUTSIDE RECORDS SUMMARY | ~2019-10-28 | XMS | Encounter Summary ---
Demographics + + + | Address | [address] | | | [place] [address] | + + + | Home Phone | | + + + | Preferred Language | Unknown | + + + | Marital Status | | + + + | Baptism Affiliation | 1013 | + + + | Race | Unknown | + + + | Ethnic Group | Unknown | + + + Author + + + | Author | [facility] | | | and [place] | + + + | Organization | [facility] | | [...] [address] | | | | | [address] | | + + + + + | Ellen Rogers | ECON | [address] | | | | | [place] | | + + + + + | Gisell Rogers | ECON | Unknown | | + + + + + Care Team Providers + +------+ + | Care Plane Runner Name | Role | Phone | + +------+ + | Lizbet Sellers MD | PCP | | + +------+ + Encounter Details +--------+ + + + + | Date | Type | Department | Care Team | Description | +--------+ + + + + | 01/03/ | Orders Only | [facility] | Jaren Pelayo MD | | | 2017 | | NEPHROLOGY [place] | [address] [place] | | | | | [address] [place] | [address] [place], [place] | | | | | [address] [place], [place] | [address] | | | | | [address] | | | | | | [phone] | | | +--------+ + + + [...] | | [address] [facility] | | | | | | [address] [place] | | | | | | [address] | | | | | | | | +--------+---------+ + + + documented as of this encounter Procedures + +--------+ + + + | Procedure Name | Priori | Date/Time | Associated Diagnosis | Comments | | | ty | | | | + +--------+ + + + | URINALYSIS WITH | Routin | 01/04/2017 | | Results for this | | MICROSCOPIC IF | e | 12:00 AM | | procedure are in the | | INDICATED | | PDT | | results section. | + +--------+ + + + | PROTEIN/CREATININE | Routin | 01/04/2017 | | Results for this | | RATIO, URINE | e | 12:00 AM | | procedure are in the | | | | PDT | | results section. | + +--------+ + + + | EXTERNAL LAB: CBC | Routin | 01/03/2017 | | Results for this | | | e | 9:55 AM | | procedure are in the | | | | PDT | | results section. | + +--------+ + + + | PARATHYROID HORMONE, | Routin | 01/03/2017 | | Results for this | | INTACT | e | 9:55 AM | | procedure are in the | | | | PDT | | results section. | + +--------+ + + + | MAGNESIUM | Routin | 01/03/2017 | | Results for this | | | e | 9:55 AM | | procedure are in the | | | | PDT | | results section. | + +--------+ + + + | RENAL FUNCTION PANEL | Routin | 01/03/2017 | | Results for this | | | e | 9:55 AM | | procedure are in the | | | | PDT | | results section. | + +--------+ + + + documented in this encounter Results Protein/Creatinine Ratio, Urine (01/04/2017 12:00 AM PDT) + +-------+ + + + | Component | Value | Ref Range | Performed | Pathologist | | | | | At | Signature | + +-------+ + + + | Protein/Cre | 100.0 | 0 - 150 | EXTERNAL | [...] + + Urinalysis with Microscopic if Indicated (01/04/2017 12:00 AM PDT) + + + + [...] + + + | Spec Grav, | 1.018 | 1.005 - 1.030 | EXTERNAL | [...] + + + | Glucose, | Comment: 300 | | EXTERNAL | | | [...] + +---------+ + + External Lab: CBC (01/03/2017 9:55 AM PDT) + +-------+ + + + | Component | Value | Ref Range | Performed | Pathologist | | | | | At | Signature | + +-------+ + + + | WBC | 7.7 | 4.5 - 11.0 10 | EXTERNAL | | | | | | LAB | | + +-------+ + + + | Non- | 5.04 | 4.3 - 5.7 10 | EXTERNAL | | | Red Blood | | | LAB | | | Cells | | | | | | Counted | | | | | + +-------+ + + + | Hemoglobin | 14.7 | 13.5 - 18.0 | EXTERNAL | | | | | g/dL | LAB | | + +-------+ + + + | Hematocrit, | 45.5 | 41 - 50 % | EXTERNAL | | | POC | | | LAB | | + +-------+ + + + | MCV | 90.3 | 81 - 99 fL | EXTERNAL | | | | | | LAB | | + +-------+ + + + | MCH | 29 | 27 - 33 pg | EXTERNAL | | | | | | LAB | | + +-------+ + + + | MCHC | 32 | 30 - 36 g/dL | EXTERNAL | | | | | | LAB | | + +-------+ + + + | Platelet | 340 | 140 - 440 K/ L | [...] + +---------+ + + Parathyroid Hormone, Intact (01/03/2017 9:55 AM PDT) + + + + + + | Component | Value | Ref Range | Performed | Pathologist | | | | | At | Signature | + + + + + + | PTH INTACT | 71.72 (A) | 15 - 65 pg/mL | [...] | | + +---------+ + + Magnesium (01/03/2017 9:55 AM PDT) + +---------+ + + + [...] + +---------+ + + Renal Function Panel (01/03/2017 9:55 AM PDT) + +---------+ + + + | Component | Value | Ref Range | Performed | Pathologist | | | | | At | Signature | + +---------+ + + + | Glucose, | 224 (A) | 70 - 100 mg/dL | EXTERNAL | | | Fasting | | | LAB | | + +---------+ + + + | BUN | 23 | 6 - 23 mg/dL | EXTERNAL | | | | | | LAB | | + +---------+ + + + | Creatinine | 1.21 | 0.60 - 1.35 | EXTERNAL | | | | | mg/dL | LAB | | + +---------+ + + + | PHOSPHORUS | | mg/dL | EXTERNAL | | | | | | LAB | | + +---------+ + + + | Albumin | 3.9 | 3.5 - 5.0 | EXTERNAL | | | | | | LAB | | + +---------+ + + + | Na | 137 | 132 - 143 | EXTERNAL | | | | | mmol/L | LAB | | + +---------+ + + + | K | 4.0 | 3.6 - 5.1 | EXTERNAL | | | | | mmol/L | LAB | | + +---------+ + + + | Cl | 100 | 95 - 112 mmol/L | EXTERNAL | | | | | | LAB | | + +---------+ + + + | CO2 | 26 | 19 - 31 mmol/L | EXTERNAL | | | | | | LAB | | + +---------+ + + + | Anion Gap | 15.0 | 7 - 21 mmol/L | EXTERNAL | | | | | | LAB | | + +---------+ + + + | eGFR if not | | | EXTERNAL | | | | | | LAB | | | [facility] | | | | | + +---------+ + + + | Phosphorus, | 3.2 | 2.5 - 5.0 | EXTERNAL | | | Inorganic | | | LAB | | + +---------+ + + + | BUN/Creatin | 19.0 | 6.0 - 28.6 | EXTERNAL | | | ine Ratio | | | LAB | | + +---------+ + + + | Calcium | 9.3 | 8.4 - 10.2 | EXTERNAL | | | | | mg/dL | LAB | | + +---------+ + + + | Estimated | 64 | mg/dL | EXTERNAL | | | [...]
--- OUTSIDE RECORDS SUMMARY | ~2019-10-28 | XMS | Encounter Summary ---
Demographics + + + | Address | [address] | | | [place] [address] | + + + | Home Phone | | + + + | Preferred Language | Unknown | + + + | Marital Status | Single | + + + | Cheondoism Affiliation | CHR | + + + | Race | White | + + + | Ethnic Group | Not or | + + + Author + + + | Author | [facility] | + + + | Organization | [facility] | + + + | Address | Unknown | + + + | Phone | Unavailable | + + + Support + + + + + | Name | Relationship | Address | Phone | + + + + + | Krissy Rogers | BRADEN | [place] [address] | | + + + + + | Bay Rogers | ECON | Unknown | | + + + + + Care Team Providers + +------+ + | Care Storage Solutions Architect Name | Role | Phone | [...] Refill Request | | 2008 | | [facility] | [address] | | | | | [facility] [address] | [place], [place] | | | | | [address] | [address] | | | | | [facility] [place], [facility] | | | | | | [place], [place] | | | | | | [address] | | | +--------+--------+ + + + [...] [address] | | | | | | [place] | | | | | | [address] | | | | | | [phone] | | | | | | | | +--------+---------+ + + + documented as of this encounter Visit Diagnoses Not on filedocumented in this encounter"
--- OUTSIDE RECORDS SUMMARY | ~2019-10-28 | XMS | Encounter Summary ---
Demographics + + + | Address | [address] | | | [place] [address] | + + + | Home Phone | | + + + | Preferred Language | Unknown | + + + | Marital Status | | + + + | [employer] Affiliation | 1013 | + + + [...] [address] | | | | | [facility] | | | | | [address] | | + + + + + | Ellen Rogers | ECON | [address] | | | | | [place] | | + + + + + | Gisell Rogers | ECON | Unknown | | + + + + + Care Team Providers + +------+ + | Care Patient Access Coordinator Name | Role | Phone | [...] Specialty | Gastroenterol | Diagnoses | | Rick, | | | Services | ogy | | [place], | MD Yoav | | | Required | | Gastroparesi | Julisa, | [address] | | | | | s Nausea | [employer] [address] | [place] | | | | | and vomiting | [address] | [address] [place], | | | | | Type I | [address] | [place] | | | | | diabetes | [place], | [address] | | | | | mellitus | [place] [address] | Phone: | | | | | ([facility]) | Phone: | [phone] | | | | | Dialysis | [phone] | Fax: | | | | | patient | Fax: | [phone] | | | | | ([facility]) | [phone] | | +--------+ + + + + + Reason for Visit +--------+ + | Reason | Comments | +--------+ + | Other | gastroparesis | +--------+ + Evaluate & Treat (Routine) +--------+--------+ + + + + | Status | Reason | Specialty | Diagnoses / | Referred By | Referred To | | | | | Procedures | Contact | Contact | +--------+--------+ + + + + | Closed | | Gastroenterol | Diagnoses | Cholitkul, | Harri, | | | | ogy | GI | David, | Yoav Silverio MD | | | | | PROBLEMS | [address], | | | | | Procedures | [place] | [address] | | | | | evaluate and | [address] [place] | [place], | | | | | treat | [place], [place] | [place] [address] | | | | | | [address] | Phone: | | | | | | | [phone] | | | | | | | Fax: | | | | | | | [phone] | +--------+--------+ + + + + Encounter Details +--------+---------+ + + + | Date | Type | Department | Care Team | Description | +--------+---------+ + + + | 07/23/ | Office | [facility] | [facility], | Gastroparesis | | 2012 | Visit | GASTROENTEROLOGY | NAWAF [address] | (Primary Dx); Nausea | | | | [address] | [address] | and vomiting; Type | | | | [address] [place] | [facility] [place] | I diabetes mellitus | | | | [address] | [address] | ([facility]); Dialysis | | | | [phone] | | patient ([facility]) | +--------+---------+ + + + [...] + + + | Blood Pressure | 150/80 | 07/23/2012 10:13 AM | | | | | PDT | | + + + + + | Pulse | 64 | 07/23/2012 10:13 AM | | | | | PDT | | + + + + + | Temperature | 36.8 C (98.3 F) | 07/23/2012 10:13 AM | | | | | PDT | | + + + + + | Respiratory Rate | 14 | 07/23/2012 10:13 AM | | | | | PDT | | + + + + + | Oxygen Saturation | - | - | | + + + + + | Inhaled Oxygen | - | - | | | Concentration | | | | + + + + + | Weight | 97.1 kg (214 lb) | 07/23/2012 10:13 AM | | | | | PDT | | + + + + + | Height | 185.4 cm (6' 1") | 07/23/2012 10:13 AM | | | | | PDT | | + + + + + | Body Mass Index | 28.23 | 07/23/2012 10:13 AM | | | | | PDT | | + + + + + documented in this encounter Progress Notes Julisa Howard ARNP - 07/23/2012 10:28 AM PDTFormatting of this note might be differe nt from the original. Wilson Rogers is a 41 y.o. male here for followup gastroparesis History of present illness: Patient continues to have profound nausea and vomiting. He has established gastroparesis s econdary to type 1 diabetes. Patient is unable to tolerate Reglan. He is unable to afford domperidone. He has been giv en the gastroparesis diet. He is currently consuming mostly broth and 7-Up. Only medication that seems to be helping his is promethazine. Most recent gastric emptying study April 2012. Positive for profound gastroparesis. Review of systems: Constitutional:Denies any fevers, chills, or unintentional weight loss. Respiratory:Denies shortness of breath, cough or wheezing. Gastrointestinal: Denies constipation, diarrhea, bloody or black stools, hematemesis, hemor rhoids, heartburn, or dysphagia Cardiovascular:Denies chest pain, palpitations, or swelling to legs Physical exam: General: Alert and oriented, NAD, appears uncomfortable. Patient is well-developed. Eyes: Sclera clear, MMM Extremities: No clubbing or edema Skin: Warm, dry, intact. No rashes noted Neuro: Cranial nerves 2-12 grossly intact. Psych: Appropriate mood and affect. Assessment 1. Gastroparesis 2. Nausea and vomiting 3. Type I diabetes mellitus 4. Dialysis patient Plan: Recommended patient begin a chewable vitamin daily. Discussed that we are out of treatments for his gastroparesis. The next treatment recommen ded would be gastric pacing. Patient agrees to discuss gastric pacing with physician. Will determine which position and [place] area is currently expecting patient's poor gastr ic pacing. Will follow up with results. Patient is to call with any question or concerns. Any fevers, chills, chest pain, SOB or other serious symptoms patient is to call the office or go to ER . Cc: David Estrada Reviewed most recent labs, imaging, and procedures. documented in t his encounter Miscellaneous Notes Addendum Note - Leah Wiseman RN - 07/23/2012 10:53 AM PDT Addended by: LEAH WISEMAN on: 07/23/2012 10:53 Modules accepted: Orders, Level of Service documented in this en counter Plan of Treatment +--------+---------+ + + + | Date | Type | Specialty | Care Team | Description | +--------+---------+ + + + | 01/04/ | Office | Nephrology | Jaren Pelayo MD | | | 2020 | Visit | | [address] [facility] | | | | | | [address] [place], [place] | | | | | | [address] | | | | | | | | +--------+---------+ + + + + + +--------+ + + | Name | Type | Priori | Associated Diagnoses | Order Schedule | | | | ty | | | + + +--------+ + + | Ambulatory referral | Outpatient | Routin | Gastroparesis | 1 Occurrences | | to Gastroenterology | Referral | e | Nausea and vomiting | starting 07/23/2012 | | | | | Type I diabetes | until 07/23/2013 | | | | | mellitus (HCC) | | | | | | Dialysis patient | | | | | | (HCC) | | + + +--------+ + + documented as of this encounter Visit Diagnoses + + | Diagnosis | + + | Gastroparesis - Primary | + + | Nausea and vomiting Nausea with vomiting | + + | Type I diabetes mellitus (HCC) Type I (juvenile type) diabetes mellitus without | | mention of complication, not stated as uncontrolled | + + | Dialysis patient (HCC) Renal dialysis status | + + documented in this encounter
--- OUTSIDE RECORDS SUMMARY | ~2019-10-28 | XMS | Encounter Summary ---
Demographics + + + | Address | [address] | | | [place] [address] | + + + | Home Phone | | + + + | Preferred Language | Unknown | + + + | Marital Status | | + + + | Christianity Affiliation | 1013 | + + + | Race | Unknown | + + + | Ethnic Group | Unknown | + + + Author + + + | Author | [facility] | | | and [place] | + + + | Organization | [facility] | | | and [place] | + + + | Address | Unknown | + + + | Phone | Unavailable | + + + Support + + + + + | Name | Relationship | Address | Phone | + + + + + | Deysi Montelongo | ECON | [address] | | | | | [facility] [place] | | | | | [phone] | | + + + + + | Ellen Rogers | ECON | [address] | | | | | [place] | | + + + + + | Gisell Rogers | ECON | Unknown | | + + + + + Care Team Providers + +------+ + | Care Glass Sander Name | Role | Phone | + +------+ + | Fatuma Agee NP | PCP | | + +------+ + Encounter Details +--------+---------+ + + + | Date | Type | Department | Care Team | Description | +--------+---------+ + + + | 01/27/ | Office | [facility] | Jaren Pelayo MD | Kidney replaced by | | 2019 | Visit | [facility] [place] | [address] [place] | transplant (Primary | | | | [address] | [address] [facility] [place] | Dx); Steroid-induced | | | | [address] [place] [address] | [id number] | osteoporosis; Type | | | | [place], [place] | | 2 diabetes mellitus | | | | [address] | | with diabetic | | | | [phone] | | nephropathy, with | | | | | | long-term current | | | | | | use of insulin | | | | | | (HCC); Essential | | | | | | hypertension, | | | | | | benign; | | | | | | Immunosuppression | | | | | | (HCC); | | | | | | Immunosuppressive | | | | | | management encounter | | | | | | following kidney | | | | | | transplant; | | | | | | Hypomagnesemia; | | | | | | Class 1 obesity due | | | | | | to excess calories | | | | | | without serious | | | | | | comorbidity with | | | | | | body mass index | | | | | | (BMI) of 32.0 to | | | | | | 32.9 in adult; | | | | | | Bilateral leg edema | +--------+---------+ + + + Social History [...] + + + + | Temperature | - | - | | + [...] in this encounter Patient Instructions Patient Instructions Jaren Pelayo MD - 01/27/2019 11:20 AM PDTScreening/Prevention Recomm endations: FLU SHOT: NOW PNEUMOVAX: 12/2021 (he thinks he got one of the 'pneumonia' shots earlier this year 2017) DERMATOLOGY: 12/2019 DEXA SCAN: 04/2019 (Osteoporosis of the hips; osteopenia of the forearm & lumbar. Alendr ramírez caused significant nausea & vomiting; switched to Reclast IV 5mg yearly of which he mi ssed the summer 2016 dose) COLONOSCOPY: To be decided (08/2019) DENTIST: Every 6 months: up to date COMPUTER LABORATORY TECHNICIAN/MAMMOGRAM: N/A Discussions/Recommendations: I discussed today with Mr. Rogers the meaning of his current CKD and the interaction of that with his immunosuppression. I stressed the importance of keeping his BG & BP controlled and avoiding getting dehydra stephen if we are to have a chance at helping preserve his renal function. he showed good under standing. I gave him instructions on how to chart his blood pressure in the appropriate manner at home. he is to call us if they fall outside of the optimal provided range. he will bring his sphygmomanometer for validation once a year. he will strictly abide by a low salt diet. He will avoid all kinds of NSAIDs for analgesia. Also: I started on Torsemide at 10 mg daily. (more severe leg edema) I increased his Slow Mag to 64 mg 3 times a day. I sent him for a repeat BMP, Mag in 1 week. He will bring me back his home weights & BP charts if they fall outside of the optimal p rovided range. At that time, I will decide whether any changes to his vasoactive regimen are warranted. I will keep him on his once-a-year Reclast IV 5 mg (Osteoporosis of the hips; osteopenia of the forearm & lumbar on DEXA scan from 04/2017). I advised him to exercise regularly but safely & to try to lose weight methodically; He voi shanelle good understanding. He will F/U with your office regularly. I sent him to F/U closely with the Endocrinology team. He will see the kidney transplant team in 09/2019. He will have a RFP, Magnesium, CBC, 12-hour Prograf level, iPTH, reflex urinalysis, [facility]PC R before he comes back in early April 2019. 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 Unknown Immunosuppression 02/04/2018 Unknown Hypomagnesemia 01/19/2014 Unknown Vitamin D deficiency 07/28/2013 Unknown Essential hypertension, benign 06/09/2013 Unknown Depression 01/27/2013 Unknown Diabetes mellitus with end-stage renal disease 01/27/2013 Unknown Diabetic neuropathy 01/27/2013 Unknown Dyslipidemia 01/27/2013 Unknown Elevated red blood cell count 01/27/2013 Unknown Hypothyroidism 01/27/2013 Unknown Immunosuppressive management encounter following kidney transplant 01/27/2013 Unknown Secondary hyperparathyroidism 01/27/2013 Unknown Type 2 diabetes mellitus with diabetic nephropathy, with long-term current use of insul in 01/27/2013 Unknown Acquired polycythemia 01/20/2013 Unknown Other [place] [facility] ([facility] drug therapy 01/20/2013 Unknown Complication of kidney transplant 11/08/2012 Unknown History of kidney transplant 10/07/2012 Unknown Esophageal reflux Unknown Nausea & vomiting Unknown ESRD on dialysis Unknown Epigastric pain Unknown Cardiac murmur 05/01/2011 Unknown History of stroke 05/01/2011 Unknown Peripheral vascular disease 05/01/2011 Unknown Gastroesophageal reflux disease 05/01/2011 Unknown Retinal detachment 09/17/2008 Unknown Acute loss of vision 09/15/2008 Unknown Proliferative diabetic retinopathy 09/15/2008 Unknown Dear Ekaterina: I saw your patient Mr. Rogers in Transplant F/U today. As you are familiar with his case, I will not state his past history in detail. Briefly, he is a 47 y.o. male patient with pa st history as delineated above; he is here to be evaluated for his 09/2012 kidney transplan t & its associated complications. *Transplant Summary: ESRD secondary to DM; 0% PRA. On HD from 2008 to 10/06/2012 the date o f the transplant. Donor age approx 18, 2/6 antigen match, donor, stdd criteria. Col d ischemia time 14.9 hours. CMV +ve, EBV unknown donor; CMV & EBV +ve recipient. Left inguin al transplant; no delayed graft function, no need for KRT; no significant transplant surgery complications. Induction with Thymoglobulin; maintenance with TAC, MMF & prednisone. No tanvir ospitalization, but had delayed surgical site wound healing. No biopsy done because of the w ound issue. Scheduled for 04/08/2013 for surveillance bx. Negative BK surveillance at 1,2,3 months. 1-month SCr was 1.44. he says that he feels 'good ' today. he denies any blurred vision tinnitus, headache, feve r, chills, or cough. No nausea, vomiting, abdominal pain, diarrhea, melena, or hematochezia . No chest pain, palpitation, dizziness, loss of consciousness, orthopnea, paroxysmal noctu rnal dyspnea, or leg edema. But he has unsteadiness on his feet; no recent falls. No LOC. No dysuria, hematuria, incontinence, or symptoms of UTI; he has 0x nightly nocturia. No hi story of passing kidney stones. The following portions of the patient's history were reviewed and updated as appropriate: a llergies, current medications, past medical history, past social history, past surgical hist ory, family history and problem list. As in History of Present Illness & in Assessment. All the pertinent systems were reviewed a nd were otherwise negative. Current Outpatient Medications: acetone, urine, test (KETOSTIX) strip, Use as directed for BG >450 or if sick, >230, D isp: , Rfl: aspirin 81 mg EC tablet, Take 81 mg by mouth Daily. , Disp: , Rfl: atorvaSTATin (LIPITOR) 40 mg tablet, Take 40 mg by mouth nightly., Disp: , Rfl: Blood Glucose Monitoring Suppl (I.Predictus AUTOCODE BLOOD GLUCOSE) NADIA, USE DIRECTED. , Disp: , Rfl: calcium carbonate (TUMS) 500 mg chewable tablet, Take 1 tablet by mouth Daily., Disp: , Rfl: Cholecalciferol (VITAMIN D-3) 5000 units CAPS, Take 5,000 Units by mouth Daily., Disp: , Rfl: cinacalcet (SENSIPAR) 30 mg tablet, TAKE ONE TABLET BY MOUTH TWICE A DAY, Disp: , Rfl: clopidogrel (PLAVIX) 75 mg tablet, Take 75 mg by mouth Daily. , Disp: , Rfl: gabapentin (NEURONTIN) 300 mg capsule, Take 600 mg by mouth 3 times daily., Disp: , Rf l: GLUCAGON EMERGENCY 1 MG injection, Inject 1 mg as directed as needed., Disp: , Rfl: 0 glucose blood test strips (I.Predictus NO CODING BLOOD GLUC) strip, 4 times daily., Dis p: , Rfl: hydroCHLOROthiazide (HYDRODIURIL) 12.5 MG tablet, Take 12.5 mg by mouth 2 times daily. , Disp: , Rfl: insulin aspart (NOVOLOG) 100 units/mL subcutaneous pump infusion, Inject under the sk in continuous., Disp: , Rfl: insulin glargine (TOUJEO SOLOSTAR) 300 units/mL concentrated injection (pen), Inject under the skin., Disp: , Rfl: Insulin Infusion Pump (PARADIGM REVEL INSULIN PUMP) NADIA, by Does not apply route., Di sp: , Rfl: insulin pen needle (B-D ULTRAFINE III SHORT PEN) 31 gauge x 8 mm, taking 4 injections per day, Disp: , Rfl: levothyroxine (SYNTHROID) 137 MCG tablet, Take 112 mcg by mouth daily., Disp: , Rfl: losartan (COZAAR) 25 mg tablet, Take 1 tablet by mouth 2 (two) times daily., Disp: , R fl: magnesium chloride (MAG64) 64 mg EC tablet, Take 64 mg by mouth 3 times daily., Disp: , Rfl: metoprolol tartrate (LOPRESSOR) 100 mg tablet, Take 100 mg by mouth 2 times daily., Di sp: , Rfl: mycophenolate (CELLCEPT) 250 mg capsule, Take 4 capsules by mouth 2 (two) times daily. , Disp: , Rfl: nitroglycerin (NITROSTAT) 0.4 mg SL tablet, Place 0.4 mg under the tongue every 5 inge [place]cca as needed. , Disp: , Rfl: NOVOLOG FLEXPEN 100 UNIT/ML injection pen, Inject under the skin 3 times daily (befor e meals)., Disp: , Rfl: 0 omeprazole (PRILOSEC) 20 mg capsule, Take 20 mg by mouth 2 times daily., Disp: , Rfl: PRODIGY LANCETS 28G MISC, TEST 4 TIMES A DAY, Disp: , Rfl: tacrolimus (PROGRAF) 1 mg capsule, 1 mg in the morning and 1 mg at night, Disp: , Rfl: UNCODED DME, Inject under the skin. SUBSCUTANEOUS INSULIN PUMP(PATIENT'S OWN) MISC; I NJECT INTO THE SKIN CONTINOUS. NOVOLOG: BASAL RATE WITH BOLUS DOSING WITH MEALS (1 UNIT FOR 4 GRAMS OF CARBS FROM 21:00-07:00, 1:5 FROM 07:00=21:00; CORRECTION 1 UNIT:30 MG/DL > 90 MG/ DL, Disp: , Rfl: zoledronic acid (RECLAST) 5 mg/100 mL SOLN, Inject 5 mg into the vein once. Once a yea r, Disp: , Rfl: Physical Exam: BP 140/70 | Pulse 80 | Ht 1.854 m (6' 1") | Wt 110.3 kg (243 lb 3.2 oz) | BMI 32.09 kg/ m General appearance: Pleasant, not in acute distress. Neck: Supple without tracheal deviation or jugular venous distension. Head and ENT: Head is atraumatic. The oropharynx is without erythema or thrush. Eyes: Anicteric. The extraocular muscle movements are normal. Lungs: Clear to auscultation bilaterally. There are no wheezes. Heart: Regular rate and rhythm without any rub, gallop. Continuous hum, likely radiating f rom the right arm AVF. Abdominal exam: Obese. Soft and nontender with normal bowel sounds. Left lower quad surgic al site is okay; no discharge Musculoskeletal: No costovertebral angle tenderness bilaterally. Extremities: Warm to touch with 2+ right, 3+ left pitting leg edema. There is no cyanosis . Skin: There are no rashes, petechiae, or ecchymosis. Neurological: Awake, alert, and oriented to time, place, and person. Normal gross motor po wer. There is no asterixis. Psychiatric: The patient s behavior is normal. Judgment and thought content are normal. *I also reviewed with him his labs from 01/24/19.* Lab Results Component Value Date BUN 18 06/12/2018 BUN 18 06/12/2018 CREATININE 1.39 (A) 06/12/2018 CREATININE 1.39 (A) 06/12/2018 EGFR 55 (A) 06/12/2018 EGFR 55 (A) 06/12/2018 NA 138 06/12/2018 NA 138 06/12/2018 K 4.4 06/12/2018 K 4.4 06/12/2018 CL 102 06/12/2018 CL 102 06/12/2018 CO2 26 06/12/2018 CO2 26 06/12/2018 CA 8.9 06/12/2018 CA 8.9 06/12/2018 PHOS 3.6 06/12/2018 PHOS 3.6 06/12/2018 MG 1.4 (A) 06/12/2018 MG 1.4 (A) 06/12/2018 ALB 4.1 06/12/2018 ALB 4.1 06/12/2018 HGB 14.1 06/12/2018 HGB 14.1 06/12/2018 URICACID 4.5 05/23/2013 WBC 6.9 06/12/2018 WBC 6.9 06/12/2018 HCT 43.8 06/12/2018 HCT 43.8 06/12/2018 LABPROT 543.9 (A) 01/28/2018 [id number] 51 01/28/2018 TAC level: 4.5 on 01/24/19. 6.2 on 06/12/18. 4.7 on 02/09/18. Not available level from 10/15/17. 6.1 on 05/10/17. 6.4 on 06/06/2016. 8.5 on 10/19/16. 5.7 on 01/03/17 5.0 on 01/05/16; 8.2 on 07/19/15; 7.4 on 04/05/16 5.4 on 08/17/14; 5.2 on 05/21/14 6.4 on 03/18 14; 6.4 on 07/24/2013; 7.2 on 01/15/2014 Assessment: Mr. Rogers is a 47 y.o. male patient with a new kidney. History of ESRD secondary to DM; 0% PRA. On HD from 2008 to 10/06/2012 the date of the transplant. Donor age approx 19, 2/6 ant igen match, donor, stdd criteria. Cold ischemia time 14.9 hours. CMV +ve, EBV unkno wn donor; CMV & EBV +ve recipient. Left inguinal transplant; no delayed graft function, no n eed for KRT; no significant transplant surgery complications. Induction with Thymoglobulin; maintenance with TAC, MMF & prednisone. No rehospitalization, but had delayed surgical site wound healing. No biopsy done because of the wound issue. Scheduled for 04/08/2013 for surve illance bx. Negative BK surveillance at 1,2,3 months. 1-month SCr was 1.44. RENAL FUNCTION: His GFR went down in early summer 2013, likely from relative volume deple tion (he consumed too little water); back up to close to normal. IMMUNOSUPPRESSION: Adequate historically. BLOOD PRESSURE: Amlodipine was stopped because of significant leg swelling. Unknown BP con trol at home. BLOOD SUGAR: Reports his BG better controlled & improving; he F/U's with the Endocrinolog y team regularly for that. ELECTROLYTES: he has a mild hypomagnesemia, chronic ANEMIA: None; his erythrocytosis was mild; now normal VITAMIN D: Normalized with treatment PARATHYROID HORMONE: Relatively normal now URIC ACID: normal PROTEINURIA: minimal URINALYSIS: No UTI or hematuria VOLUME STATUS: Euvolumic. Screening/Prevention Recommendations: FLU SHOT: NOW PNEUMOVAX: 12/2021 (he thinks he got one of the 'pneumonia' shots earlier this 2017) DERMATOLOGY: 12/2019 DEXA SCAN: 04/2019 (Osteoporosis of the hips; osteopenia of the forearm & lumbar. Alendr ramírez caused significant nausea & vomiting; switched to Reclast IV 5mg yearly of which he mi ssed the summer 2016 dose) COLONOSCOPY: To be decided (08/2019) DENTIST: Every 6 months: up to date COMPUTER LABORATORY TECHNICIAN/MAMMOGRAM: N/A Discussions/Recommendations: I discussed today with Mr. Rogers the meaning of his current CKD and the interaction of that with his immunosuppression. I stressed the importance of keeping his BG & BP controlled and avoiding getting dehydra stephen if we are to have a chance at helping preserve his renal function. he showed good under standing. I gave him instructions on how to chart his blood pressure in the appropriate manner at home. he is to call us if they fall outside of the optimal provided range. he will bring his sphygmomanometer for validation once a year. he will strictly abide by a low salt diet. He will avoid all kinds of NSAIDs for analgesia. Also: I started on Torsemide at 10 mg daily. (more severe leg edema) I increased his Slow Mag to 64 mg 3 times a day. I sent him for a repeat BMP, Mag in 1 week. I will keep him on Losartan 25 mg daily (he had not been able to keep the higher doses d own). He will bring me back his home weights & BP charts if they fall outside of the optimal p rovided range. At that time, I will decide whether any changes to his vasoactive regimen are warranted. I will keep him on his once-a-year Reclast IV 5 mg (Osteoporosis of the hips; osteopenia of the forearm & lumbar on DEXA scan from 04/2017). I advised him to exercise regularly but safely & to try to lose weight methodically; He voi shanelle good understanding. He will F/U with your office regularly. I sent him to F/U closely with the Endocrinology team. He will see the kidney transplant team in 09/2019. He will have a RFP, Magnesium, CBC, 12-hour Prograf level, iPTH, reflex urinalysis, [facility] R before he comes back in early April 2019. Thank you Ekaterina for the opportunity to see this high-complexity patient in transplant F/U today. Please do not hesitate to call me at any time with questions or concerns. Truly yours, Jaren Pelayo MD [facility] Cc: Dr Sarmiento & Dorota Duke [employer] documented in this enco unter Plan of Treatment +--------+---------+ + + + | Date | Type | Specialty | Care Team | Description | +--------+---------+ + + + | 01/04/ | Office | Nephrology | Jaren Pelayo MD | | | 2019 | Visit | | [address] [facility] | | | | | | [address] [place], [place] | | | | | | [id number] | | | | | | | | +--------+---------+ + + + documented as of this encounter Visit Diagnoses + + | Diagnosis | + + | Kidney replaced by transplant - Primary | + + | Steroid-induced osteoporosis Other osteoporosis | + + | Type 2 diabetes mellitus with diabetic nephropathy, with long-term current use of | | insulin (HCC) | + + | Essential hypertension, benign | + + | Immunosuppression (HCC) Unspecified disorder of immune mechanism | + + | Immunosuppressive management encounter following kidney transplant Encounter for | | long-term (current) use of other medications | + + | Hypomagnesemia Disorders of magnesium metabolism | + + | Class 1 obesity due to excess calories without serious comorbidity with body mass | | index (BMI) of 32.0 to 32.9 in adult | + + | Bilateral leg edema Edema | + + documented in this encounter
--- OUTSIDE RECORDS SUMMARY | ~2019-10-28 | XMS | Encounter Summary ---
Demographics + + + | Address | [address] | | | [place] [address] | + + + | Home Phone | | + + + | Preferred Language | Unknown | + + + | Marital Status | | + + + | Temple Affiliation | 1013 | + + + | Race | Unknown | + + + | Ethnic Group | Unknown | + + + Author + + + | Author | [facility] | | | and [place] | + + + | Organization | [facility] | | [...] [address] | | | | | [address] | | + + + + + | Ellen Rogers | ECON | [address] | | | | | [place] | | + + + + + | Gisell Rogers | ECON | Unknown | | + + + + + Care Team Providers + +------+ + | Care Hay Buckler Name | Role | Phone | + +------+ + | Lizbet Sellers MD | PCP | | + +------+ + Encounter Details +--------+ + + + + | Date | Type | Department | Care Team | Description | +--------+ + + + + | 11/13/ | Orders Only | [facility] | Provider, | Disorder involving | | 2019 | | SYSTEM GENERIC OP | MD Dany [address] | immune mechanism | | | | CONVERSION [address] | [address] | ([facility]); Vitamin D | | | | [address] [place], [place] | [place] [address] | deficiency; | | | | [address] | | Essential (primary) | | | | [phone] | | hypertension; | | | | | | History of kidney | | | | | | transplant; | | | | | | Hypomagnesemia; | | | | | | Secondary | | | | | | hyperparathyroidism | | | | | | of renal origin | | | | | | ([facility]) | +--------+ + + + + Social [...] [place] | | | | | | [address] | | | | | | | | +--------+---------+ + + + + +------+--------+ + + | Name | Type | Priori | Associated Diagnoses | Order Schedule | | | | ty | | | + +------+--------+ + + | Tacrolimus ([id number]) | Lab | Routin | Disorder involving | Expected: | | Trough | | e | immune mechanism | 05/07/2018, Expires: | | | | | (HCC) Vitamin D | 02/04/2019 | | | | | deficiency | | | | | | Essential (primary) | | | | | | hypertension | | | | | | History of kidney | | | | | | transplant | | | | | | Hypomagnesemia | | + +------+--------+ + + | Urinalysis with | Lab | Routin | Disorder involving | Expected: | | Microscopic if | | e | immune mechanism | 05/07/2018, Expires: | | Indicated | | | (HCC) Vitamin D | 02/04/2019 | | | | | deficiency | | | | | | Essential (primary) | | | | | | hypertension | | | | | | History of kidney | | | | | | transplant | | | | | | Hypomagnesemia | | + +------+--------+ + + | Protein/Creatinine | Lab | Routin | Disorder involving | Expected: | | Ratio, Urine | | e | immune mechanism | 05/07/2018, Expires: | | | | | ([facility]) Vitamin D | 02/04/2019 | | | | | deficiency | | | | | | Essential (primary) | | | | | | hypertension | | | | | | History of kidney | | | | | | transplant | | | | | | Hypomagnesemia | | + +------+--------+ + + | Renal Function Panel | Lab | Routin | History of kidney | Expected: | | | | e | transplant | 01/08/2019, Expires: | | | | | Secondary | 07/09/2019 | | | | | hyperparathyroidism | | | | | | of renal origin | | | | | | (HCC) Essential | | | | | | (primary) | | | | | | hypertension | | | | | | Hypomagnesemia | | | | | | Disorder involving | | | | | | immune mechanism | | | | | | (HCC) | | + +------+--------+ + + | Magnesium | Lab | Routin | History of kidney | Expected: | | | | e | transplant | 01/08/2019, Expires: | | | | | Secondary | 07/09/2019 | | | | | hyperparathyroidism | | | | | | of renal origin | | | | | | (HCC) Essential | | | | | | (primary) | | | | | | hypertension | | | | | | Hypomagnesemia | | | | | | Disorder involving | | | | | | immune mechanism | | | | | | (HCC) | | + +------+--------+ + + | CBC with | Lab | Routin | History of kidney | Expected: | | Differential | | e | transplant | 01/08/2019, Expires: | | | | | Secondary | 07/09/2019 | | | | | hyperparathyroidism | | | | | | of renal origin | | | | | | (HCC) Essential | | | | | | (primary) | | | | | | hypertension | | | | | | Hypomagnesemia | | | | | | Disorder involving | | | | | | immune mechanism | | | | | | (HCC) | | + +------+--------+ + + | Tacrolimus ([id number]) | Lab | Routin | History of kidney | Expected: | | Trough | | e | transplant | 01/08/2019, Expires: | | | | | Secondary | 07/09/2019 | | | | | hyperparathyroidism | | | | | | of renal origin | | | | | | (HCC) Essential | | | | | | (primary) | | | | | | hypertension | | | | | | Hypomagnesemia | | | | | | Disorder involving | | | | | | immune mechanism | | | | | | (HCC) | | + +------+--------+ + + | Parathyroid Hormone, | Lab | Routin | History of kidney | Expected: | | Intact | | e | transplant | 01/08/2019, Expires: | | | | | Secondary | 07/09/2019 | | | | | hyperparathyroidism | | | | | | of renal origin | | | | | | (HCC) Essential | | | | | | (primary) | | | | | | hypertension | | | | | | Hypomagnesemia | | | | | | Disorder involving | | | | | | immune mechanism | | | | | | (HCC) | | + +------+--------+ + + | Urinalysis with | Lab | Routin | History of kidney | Expected: | | Microscopic if | | e | transplant | 01/08/2019, Expires: | | Indicated | | | Secondary | 07/09/2019 | | | | | hyperparathyroidism | | | | | | of renal origin | | | | | | (HCC) Essential | | | | | | (primary) | | | | | | hypertension | | | | | | Hypomagnesemia | | | | | | Disorder involving | | | | | | immune mechanism | | | | | | (HCC) | | + +------+--------+ + + | Protein/Creatinine | Lab | Routin | History of kidney | Expected: | | Ratio, Urine | | e | transplant | 01/08/2019, Expires: | | | | | Secondary | 07/09/2019 | | | | | hyperparathyroidism | | | | | | of renal origin | | | | | | (HCC) Essential | | | | | | (primary) | | | | | | hypertension | | | | | | Hypomagnesemia | | | | | | Disorder involving | | | | | | immune mechanism | | | | | | (HCC) | | + +------+--------+ + + documented as of this encounter Visit Diagnoses + + | Diagnosis | + + | Disorder involving immune mechanism (HCC) Unspecified disorder of immune mechanism | + + | Vitamin D deficiency Unspecified vitamin D deficiency | + + | Essential (primary) hypertension Unspecified essential hypertension | + + | History of kidney transplant Kidney replaced by transplant | + + | Hypomagnesemia Disorders of magnesium metabolism | + + | Secondary hyperparathyroidism of renal origin (HCC) Secondary hyperparathyroidism (of | | renal origin) | + + documented in this encounter"
--- OUTSIDE RECORDS SUMMARY | ~2019-10-28 | XMS | Encounter Summary ---
Demographics + + + | Address | [address] | | | [place] [address] | + + + | Home Phone | | + + + | Preferred Language | Unknown | + + + | Marital Status | Single | + + + | Buddhist Affiliation | CHR | + + + [...] Krissy Rogers | BRADEN | [place] [address] | | + + + + + | Bay Rogers | ECON | Unknown | | + + + + + Care Team Providers + +------+ + | Care Section Housekeeper Name | Role | Phone | + [...] | | | | | | | [address] | | | | | | | [address] | | | | | | | [place] | | | | | | | [place], [place] | | | | | | | [address] | | | | | | | Phone: | | | | | | | [phone] | | | | | | | Fax: | | | | | | | [phone] | +--------+--------+ + + + + Encounter Details +--------+---------+ + + + | Date | Type | Department | Care Team | Description | +--------+---------+ + + + | 01/25/ | Office | [facility] | Maria Elena Balbuena, | Proliferative | | 2017 | Visit | [facility] at | [address] | diabetic retinopathy | | | | Annabelle Jamison [address] | of both eyes | | | | [address] | [place], [place] | without macular | | | | Eye [place], [facility] | [address] | edema associated | | | | floor [place], [place] | [phone] | with type 2 diabetes | | [...] might be different from the elvira johnson. [facility] Progress Note 01/25/2017 CC: Follow-up visit [...] ights Follow up: 1 year Refer to [facility] for possible yag right eye Attestations: The certified ophthalmic medical technician, under the supervision of the physician, [...] [address] | | | | | | [place], [place] | | | | | | [address] | | | | | | [phone] | | | | | | | [...]
--- OUTSIDE RECORDS SUMMARY | ~2019-10-28 | XMS | Encounter Summary ---
Demographics + + + | Address | [address] | | | [place] [address] | + + + | Home Phone [...] Krissy Rogers | BRADEN | [place] [address] | | + + + + + | Bay Rogers | ECON | Unknown | | + + + + + Care Team Providers + +------+ + | Care Senior Java Developer Name | Role | Phone | + [...] Flaco | | | | | at [facility] | [address] | | | | | [address] | [place] [address] | | | | | Anup Prasad | | | | | | [place], [address] [place] [address] | | | | | | [place], [place] | | | | | | [address] | | | | | | [phone] | | | +--------+ + + + [...] | | 2020 | Visit | | [address] | | | | | | [address] | | | | | | [place], [place] | | | | | | [address] | | | | | | [phone] | | | | | | | | +--------+---------+ + + + documented as of this encounter Visit Diagnoses Not on filedocumented in this encounter"
--- OUTSIDE RECORDS SUMMARY | ~2019-10-28 | XMS | Encounter Summary ---
Demographics + + + | Address | [address] | | | [place] [address] | + + + | Home Phone [...] Krissy Rogers | BRADEN | [place] [address] | | + + + + + | Bay Rogers | ECON | Unknown | | + + + + + Care Team Providers + +------+ + | Care Gymnasium Teacher Name | Role | Phone | + +------+ + | Jono Arambula | PCP | | + +------+ + Encounter Details +--------+ + + + + | Date | Type | Department | Care Team | Description | +--------+ + + + + | 01/20/ | Document-Sc | UNKNOWN DEPARTMENT | Unknown . | | | 2012 | anned | [address] | | | | | | [address] | | | | | | [place], [place] | | | | | | [address] | | | +--------+ + + + [...] | | 2019 | Visit | | [address] | | | | | | [address] | | | | | | [place], [place] | | | | | | [address] | | | | | | [phone] | | | | | | | | +--------+---------+ + + + documented as of this encounter Visit Diagnoses Not on filedocumented in this encounter"
--- OUTSIDE RECORDS SUMMARY | ~2019-10-28 | XMS | Encounter Summary ---
Demographics + + + | Address | [address] | | | [place] [address] | + + + | Home Phone | | + + + | Preferred Language | Unknown | + + + | Marital Status | Single | + + + | Mosque Affiliation | CHR | + + + [...] Krissy Rogers | BRADEN | [place] [address] | | + + + + + | Bay Rogers | ECON | Unknown | | + + + + + Care Team Providers + +------+ + | Care Account Planner Name | Role | Phone | + [...] Retinal | | 2008 | Visit | [facility] at | [address] | Detachment; [facility] | | | | [facility] [address] | Manif Type II, | | | | [address] | [place], [place] | Uncontrolled ([facility]); | | | | Eye [place], [facility] | [address] | Vision, Loss, | | | | floor [place], [place] | [phone] | Sudden; | | | | [address] | | Proliferative | | | | | | Diabetic Retinopathy | | | | | | ([facility]) | +--------+---------+ + + + Social [...] No changes or hospitalizations. Referring Provider: Dr. Akers POH: PPV,MP,EL,SO OS 09/17/08 Combined traction/rhegmatogenous [...] | | 2020 | Visit | | [address] | | | | | | [address] | | | | | | [place], [place] | | | | | | [address] | | | | | | [phone] | | | | | | | | +--------+---------+ + + + documented as of this encounter Visit Diagnoses + + | Diagnosis | + + | Unspecified retinal detachment | + + | Type II or unspecified type diabetes mellitus with ophthalmic manifestations, | | uncontrolled(250.52) ([facility]) Type II or unspecified type diabetes mellitus with | | ophthalmic manifestations, uncontrolled | + + | Vision, loss, sudden Sudden visual loss | + + | Proliferative diabetic retinopathy(362.02) Proliferative diabetic retinopathy | + + documented in this encounter"
--- OUTSIDE RECORDS SUMMARY | ~2019-10-28 | XMS | Encounter Summary ---
Demographics + + + | Address | [address] | | | [place] [address] | + + + | Home Phone [...] Krissy Rogers | BRADEN | [place] [address] | | + + + + + | Bay Rogers | ECON | Unknown | | + + + + + Care Team Providers + +------+ + | Care Tassel Maker Name | Role | Phone | [...] II | | 2008 | Visit | [place] | | ([facility]); | | | | Photography at | | Proliferative | | | | [facility] [address] | | Diabetic Retinopathy | | | | [address] | | ([facility]); Traction | | | | Eye [place], [address] | | Detachment of Retina | | | | floor [place], [place] | | | | | | [address] | | | +--------+---------+ + + + [...] [address] | | | | | | [place], [place] | | | | | | [address] | | | | | | [phone] | | | | | | | | +--------+---------+ + + + documented as of this encounter Visit Diagnoses + + | Diagnosis | + + | Type II or unspecified type diabetes mellitus with ophthalmic manifestations, not | | stated as uncontrolled(250.50) ([facility]) Type II or unspecified type diabetes mellitus with | | ophthalmic manifestations, not stated as uncontrolled | + + | Proliferative diabetic retinopathy(362.02) Proliferative diabetic retinopathy | + + | Traction detachment of retina | + + documented in this encounter"
--- OUTSIDE RECORDS SUMMARY | ~2019-10-28 | XMS | Encounter Summary ---
Demographics + + + | Address | [address] | | | [place] [address] | + + + | Home Phone | | + + + | Preferred Language | Unknown | + + + | Marital Status | | + + + | Jain Affiliation | 1013 | + + + [...] [address] | | | | | [address] | | + + + + + | Ellen Rogers | ECON | [address] | | | | | [place] | | + + + + + | Gisell Rogers | ECON | Unknown | | + + + + + Care Team Providers + +------+ + | Care Maintenance Superintendent Name | Role | Phone | + +------+ + | Lizbet Sellers MD | PCP | | + +------+ + Encounter Details +--------+ + + + + | Date | Type | Department | Care Team | Description | +--------+ + + + + | 01/04/ | Orders Only | [facility] | Jaren Pelayo MD | | | 2014 | | NEPHROLOGY [place] | [address] [place] | | | | | [address] [place] | [address] [place], [place] | | | | | [address] [place], [place] | [id number] | | | | | [address] | | | | | | [phone] | | | +--------+ + + + [...] 2020 | Visit | | [address] [facility] [address] | | | | | | [address] [place] | | | | | | [address] | | | | | | | | +--------+---------+ + + + documented as of this encounter Procedures + +--------+ + + + | Procedure Name | Priori | Date/Time | Associated Diagnosis | Comments | | | ty | | | | + +--------+ + + + | EXTERNAL LAB: | Routin | 01/04/2015 | | Results for this | | TACROLIMUS LEVEL, | e | 12:00 AM | | procedure are in the | | LC-MS/MS | | PDT | | results section. | + +--------+ + + + | EXTERNAL LAB: CBC | Routin | 01/04/2015 | | Results for this | | | e | 12:00 AM | | procedure are in the | | | | PDT | | results section. | + +--------+ + + + | URINALYSIS WITH | Routin | 01/04/2015 | | Results for this | | MICROSCOPIC IF | e | 12:00 AM | | procedure are in the | | INDICATED | | PDT | | results section. | + +--------+ + + + | PARATHYROID HORMONE, | Routin | 01/04/2015 | | Results for this | | INTACT AND CALCIUM | e | 12:00 AM | | procedure are in the | | | | PDT | | results section. | + +--------+ + + + | PROTEIN/CREATININE | Routin | 01/04/2015 | | Results for this | | RATIO, URINE | e | 12:00 AM | | procedure are in the | | | | PDT | | results section. | + +--------+ + + + | BK VIRUS, NAAT, | Routin | 01/04/2015 | | Results for this | | URINE, QUANT | e | 12:00 AM | | procedure are in the | | | | PDT | | results section. | + +--------+ + + + | MAGNESIUM | Routin | 01/04/2015 | | Results for this | | | e | 12:00 AM | | procedure are in the | | | | PDT | | results section. | + +--------+ + + + | RENAL FUNCTION PANEL | Routin | 01/04/2015 | | Results for this | | | e | 12:00 AM | | procedure are in the | | | | PDT | | results section. | + +--------+ + + + documented in this encounter Results External Lab: Tacrolimus Level, LC-MS/MS (01/04/2015 12:00 AM PDT) + +-------+ + + [...] + + Parathyroid Hormone, Intact and Calcium (01/04/2015 12:00 AM PDT) + +-------+ + + + | Component | Value | Ref Range | Performed | Pathologist | | | | | At | Signature | + +-------+ + + + | PTH Intact | 53.74 | 15 - 65 | EXTERNAL | [...] + +---------+ + + Protein/Creatinine Ratio, Urine (01/04/2015 12:00 AM PDT) + +-------+ + + + | Component | Value | Ref Range | Performed | Pathologist | | | | | At | Signature | + +-------+ + + + | Protein/Cre | 63.5 | 0 - 150 | EXTERNAL | [...] + + BK Virus, NAAT, Urine, Quant (01/04/2015 12:00 AM PDT) + + | Specimen | + + | Urine specimen | | (specimen) | + + + + + | Impressions | Performed At | + + + | BK VIRUS: NOT DETECTED | EXTERNAL LAB | + + + + +---------+ + + | Performing | Address | City/State/Zipcode | Phone Number | | Organization | | | | + +---------+ + + | EXTERNAL LAB | | | | + +---------+ + + Urinalysis with Microscopic if Indicated (01/04/2015 12:00 AM PDT) + + + + [...] + + + | Spec Grav, | 1.020 | 1.005 - 1.030 | EXTERNAL | [...] + | pH, Urine | 6 | 5 - 9 | EXTERNAL | [...] + + + | Glucose, | 4+Comment: 500 | | EXTERNAL | | | Urine [...] + +---------+ + + External Lab: CBC (01/04/2015 12:00 AM PDT) + + + + + + | Component | Value | Ref Range | Performed | Pathologist | | | | | At | Signature | + + + + + + | WBC | 7.2 | 4.5 - 11.0 10 | EXTERNAL | | | | | | LAB | | + + + + + + | Non- | 5.07 | 4.3 - 5.7 10 | EXTERNAL | | | Red Blood | | | LAB | | | Cells | | | | | | Counted | | | | | + + + + + + | Hemoglobin | 15.6 | 13.5 - 18.0 | EXTERNAL | | | | | g/dL | LAB | | + + + + + + | Hematocrit, | 46.5 | 41 - 50 % | EXTERNAL | | | POC | | | LAB | | + + + + + + | MCV | 91.6 | 81 - 99 fL | EXTERNAL | | | | | | LAB | | + + + + + + | MCH | 31 | 27 - 33 pg | EXTERNAL | | | | | | LAB | | + + + + + + | MCHC | 34 | 30 - 36 g/dL | EXTERNAL | | | | | | LAB | | + + + + + + | Platelet | 428 | 140 - 440 K/ L | [...] + + + | % Segmented | 69.2 | 39 - 80 % | EXTERNAL | | | | | | LAB | | | Neutrophils | | | | | + + + + + + | % | 14.4 (A) | 24 - 44 % | EXTERNAL | | | Lymphocytes | | | LAB | | + + + + + + | % Monocytes | 12.3 (A) | 0 - 12 % | EXTERNAL | | | | | | LAB | | + + + + + + | % | 2.9 | 0 - 6 % | EXTERNAL | | | Eosinophils | | | LAB | | + + + + + + | % Basophils | 1.2 | 0 - 2 % | EXTERNAL [...] | | + +---------+ + + Magnesium (01/04/2015 12:00 AM PDT) + +---------+ + + [...] + +---------+ + + Renal Function Panel (01/04/2015 12:00 AM PDT) + +---------+ + + + | Component | Value | Ref Range | Performed | Pathologist | | | | | At | Signature | + +---------+ + + + | Glucose, | 165 (A) | 70 - 100 mg/dL | EXTERNAL | | | Fasting | | | LAB | | + +---------+ + + + | BUN | 18 | 6 - 23 mg/dL | EXTERNAL | | | | | | LAB | | + +---------+ + + + | Creatinine | 1.27 | 0.60 - 1.35 | EXTERNAL | | | | | mg/dL | LAB | | + +---------+ + + + | PHOSPHORUS | | mg/dL | EXTERNAL | | | | | | LAB | | + +---------+ + + + | Albumin | 4.2 | 3.5 - 5.0 | EXTERNAL | | | | | | LAB | | + +---------+ + + + | Na | 135 | 132 - 143 | EXTERNAL | | | | | mmol/L | LAB | | + +---------+ + + + | K | 4.4 | 3.6 - 5.1 | EXTERNAL | | | | | mmol/L | LAB | | + +---------+ + + + | Cl | 100 | 95 - 112 mmol/L | EXTERNAL | | | | | | LAB | | + +---------+ + + + | CO2 | 27 | 19 - 31 mmol/L | EXTERNAL | | | | | | LAB | | + +---------+ + + + | Anion Gap | 12.4 | 7 - 21 mmol/L | EXTERNAL | | | | | | LAB | | + +---------+ + + + | eGFR if not | | | EXTERNAL | | | | | | LAB | | | [facility] | | | | | + +---------+ + + + | Phosphorus, | 2.8 | 2.5 - 5.0 | EXTERNAL | | | Inorganic | | | LAB | | + +---------+ + + + | BUN/Creatin | 14.2 | 6.0 - 28.6 | EXTERNAL | | | ine Ratio | | | LAB | | + +---------+ + + + | Calcium | 9.0 | 8.4 - 10.2 | EXTERNAL | | | | | mg/dL | LAB | | + +---------+ + + + | Estimated | 61 | 60 - 140 mg/dL | EXTERNAL [...]
--- OUTSIDE RECORDS SUMMARY | ~2019-10-28 | XMS | Encounter Summary ---
Demographics + + + | Address | [address] | | | [place] [address] | + + + | Home Phone [...] + + + | Author | [facility] | + + + | Organization | [facility] | + + + | Address | Unknown | + + + | Phone | Unavailable | + + + Support + + + + + | Name | Relationship | Address | Phone | + + + + + | Krissy Rogers | BRADEN | [place] [address] | | + + + + + | aBy Rogers | ECON | Unknown | | + + + + + Care Team Providers + +------+ + | Care Wastewater Analyst Name | Role | Phone | [...] | | | | | | | [place], [place] | | | | | | | [address] | | | | | | | Phone: | | | | | | | [phone] | | | | | | | Fax: | | | | | | | [phone] | +--------+--------+ + + + + Encounter Details +--------+ + + + + | Date | Type | Department | Care Team | Description | +--------+ + + + + | 12/02/ | Hospital | [facility] | Maria Elena Lieberman, | | | 2008 | Encounter | [address] | MD [address] | | | | | [address] | [address] | | | | | Clarita [address]es | [place], [place] | | | | | [place] | [address] | | | | | [address] | [phone] | | | | | | | [...] Manzano | | | | | | [place], [place] | | | | | | [address] | | | | | | [phone] | | | | | | | [...] Performed At | + + + | [id number] | | | [id number] | | | [id number] [address] [id number] | | | Date: 12/02/2008 Attending Surgeon: | | | Maria Elena Lieberman M.D. Cuffer(s): | | | Sami Celis MD | [...] | | | was then used to israeli the anterior capsule of residual cortex. A [...] | Maria Elena Lieberman M.D. J / [id number] / [id number] / [id number] / | | | | | + + + + + | Procedure Note | + + | Sami Celis MD - 12/02/2008 12:00 AM PDT [id number] | | [id number] ZOEY RACHEL | | [id number] Date: 12/02/2008 Attending Surgeon: | | Maria Elena Lieberman M.D. Cuffer(s): Sami Celis MD | | Preoperative Diagnosis(es):1. [...] lidocaine was administered without | | complication. [facility] pause in which [...] | | vitreous cutter was thenused to israeli the anterior capsule of residual cortex. A [...] Elena Hays, | | Gricelda ZAYAS / [id number] / [id number] / [id number] / T: 12/06/2008 | |dense cataract, but [...] vitreous cutter was then | |used to israeli the anterior capsule of residual cortex. A [...] | | | |MARQUEZ / ERWIN | |[id number] / [id number] / [id number] / | | | | | | | | | | | | | | | | | | | | | + + documented in this encounter Visit Diagnoses Not on filedocumented in this encounter"
--- OUTSIDE RECORDS SUMMARY | ~2019-10-28 | XMS | Encounter Summary ---
Demographics + + + | Address | [address] | | | [place] [address] | + + + | Home Phone [...] Krissy Rogers | BRADEN | [place] [address] | | + + + + + | Bay Rogers | ECON | Unknown | | + + + + + Care Team Providers + +------+ + | Care Marketing Operations Intern Name | Role | Phone | [...] eye-mod/oth-near | | 2009 | Visit | [place] at [facility] | [address] | tot (Primary Dx); | | | | [address] | [address] [place], [place] | PDR (proliferative | | | | Mailcode: CH11P | [address] | diabetic | | | | [place] for [facility] | | retinopathy) (HCC); | | | | and Healing, | | Myopia; Regular | | | | | | astigmatism | | | | Floor [place], [place] | | | | | | [address] | | | | | | [phone] | | | +--------+---------+ + + + [...] of visit: initial evaluation HPI: Wilson Rogers ([id number]) is a 39 y.o. year old white male from [place] with h/o PDR 2 ^ Type I Diabetes. Description of patient: alert, mobile, slow & cautious gait, wearing baseball cap Accompanied by: Livia (pt's caregiver) Scheduling notes: -consult, Dr. Alfonso Akers, [facility] Pt. arriving evening before,requested record [...] month, is currently on ne w insulin. (-)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 Discussed referral to [facility] for RT, O&M, and Assistiv e Technology Training. Pt was able to ask questions and felt it would be a good resource. [facility] pt the [facility] will help find local counselor to work with pt and can provide other resource s he may be interested. -[facility] pt re impt of polycarbonate lenses for [...] with Early Presbyopia. Rec sv polycarbonate lenses assistant professor of nursing wear for eye protection. Prefers no tint. No BF 2^ slow ga it. Final Rx: OD Balance, OS -1.50-1.53f449 3) Rec 7x/28D LED [facility] for spot reading menu, cell phone, med bottle. Can mail device to pt. Used well today. 4) Rec 7x/28D LED SM (s Rx) or CCTV (c near Add Rx for comfort) for snf reading. 5) Refer to [place] [facility] for Rehabilitation Therapy, Orientation and Mob ility, and Assistive Technology Training. 6) RTC 4-5 months f/u progress or sooner if vision changes. Pt to call anytime if he has a ny questions. Consider VF in future if more difficulty c VF, gait, & response inc mag. LIZETT MCADAMS OD [facility] [address] Mailcode: Ch11p [facility], [address] [facility] [address] documented in this encount er Plan of Treatment +--------+---------+ + + + | Date | Type | Specialty | Care Team | Description | +--------+---------+ + + + | 01/26/ | Office | Ophthalmology | Maria Elena Lieberman, | | | 2019 | Visit | | [address] | | | | [address] | | | | | | [place], [place] | | | | | | [address] | | | | | | [phone] | | | | | | | | +--------+---------+ + + + + + +--------+ + + | Name | Type | Priori | Associated Diagnoses | Order Schedule | | | | ty | | | + + +--------+ + + | NM REFRACTION | Procedures | Routin | Myopia Regular | Ordered: 10/14/2009 | | EXTENDED | | e | astigmatism | | + + +--------+ + + documented as of this encounter Visit Diagnoses + + | Diagnosis | + + | Better eye: moderate vision impairment; lesser eye: near-total vision impairment - | | Primary | + + | PDR (proliferative diabetic retinopathy) ([facility]) Type II or unspecified type diabetes | | mellitus with ophthalmic manifestations, not stated as uncontrolled | + + | Myopia | + + | Regular astigmatism | + + documented in this encounter
--- OUTSIDE RECORDS SUMMARY | ~2019-10-28 | XMS | Encounter Summary ---
Demographics + + + | Address | [address] | | | [place] [address] | + + + | Home Phone [...] + + + | Author | [facility] | + + + | Organization | [facility] | + + + | Address | Unknown | + + + | Phone | Unavailable | + + + Support + + + + + | Name | Relationship | Address | Phone | + + + + + | Krissy Rogers | BRADEN | [place] [address] | | + + + + + | Bay Rogers | ECON | Unknown | | + + + + + Care Team Providers + +------+ + | Care Private Duty Rn Name | Role | Phone | + +------+ + | Jono Arambula | PCP | | + +------+ + Reason for Visit + + + | Reason | Comments | + + + | Referral To Surgery | Gastroparesis | | - General | | + + + Encounter Details +--------+ + + + + | Date | Type | Department | Care Team | Description | +--------+ + + + + | 08/29/ | Abstract | [facility]ive [facility] | Clinic, Surgery | Referral To Surgery | | 2012 | | Center at [facility] [address] | | - General | | | | [address] | | (Gastroparesis) | | | | Mailcode: Center | | | | | | [facility] and | | | | | | [facility] [address] | | | | | | [place], [place] | | | | | | [address] | | | | | | [phone] | | | +--------+ + + + [...] [address] | | | | | | [place] | | | | | | [address] | | | | | | [phone] | | | | | | | | +--------+---------+ + + + documented as of this encounter Visit Diagnoses Not on filedocumented in this encounter"
--- OUTSIDE RECORDS SUMMARY | ~2019-10-28 | XMS | Encounter Summary ---
Demographics + + + | Address | [address] | | | [place] [address] | + + + | Home Phone | | + + + | Preferred Language | Unknown | + + + | Marital Status | | + + + | Pentecostalism Affiliation | 1013 | + + + | Race | Unknown | + + + | Ethnic Group | Unknown | + + + Author + + + | Author | [facility] | | | and [place] | + + + | Organization | [facility] | | | [...] [address] | | | | | [address] | | + + + + + | Ellen Rogers | ECON | [address] | | | | | [place] | | + + + + + | Gisell Rogers | ECON | Unknown | | + + + + + Care Team Providers + +------+ + | Care Enrollment Coordinator Name | Role | Phone | + +------+ + | Lizbet Sellers MD | PCP | | + +------+ + Encounter Details +--------+ + + + + | Date | Type | Department | Care Team | Description | +--------+ + + + + | 05/10/ | Orders Only | [facility] | Jaren Pelayo MD | | | 2018 | | NEPRHOLOGY [place] | [address] | | | | | [address] | [address] [place], [place] | | | | | [address] [place], [place] | [address] | | | | | [address] | | | | | | [phone] | | | +--------+ + + + [...] 2020 | Visit | | [address] [facility] | | | | | | [address] [place] | | | | | | [address] | | | | | | | | +--------+---------+ + + + documented as of this encounter Procedures + +--------+ + + + | Procedure Name | Priori | Date/Time | Associated Diagnosis | Comments | | | ty | | | | + +--------+ + + + | EXTERNAL LAB: | Routin | 05/10/2017 | | Results for this | | TACROLIMUS LEVEL, | e | 10:40 AM | | procedure are in the | | LC-MS/MS | | PST | | results section. | + +--------+ + + + | EXTERNAL LAB: CBC | Routin | 05/10/2017 | | Results for this | | | e | 10:40 AM | | procedure are in the | | | | PST | | results section. | + +--------+ + + + | MAGNESIUM | Routin | 05/10/2017 | | Results for this | | | e | 10:40 AM | | procedure are in the | | | | PST | | results section. | + +--------+ + + + | RENAL FUNCTION PANEL | Routin | 05/10/2017 | | Results for this | | | e | 10:40 AM | | procedure are in the | | | | PST | | results section. | + +--------+ + + + documented in this encounter Results External Lab: Tacrolimus Level, LC-MS/MS (05/10/2017 10:40 AM PST) + +-------+ + + + | Component | Value | Ref Range | Performed | Pathologist | | | | | At | Signature | + +-------+ + + + | Tacrolimus | 6.1 | | EXTERNAL | | | Level [...] + +---------+ + + External Lab: CBC (05/10/2017 10:40 AM PST) + + + + + + | Component | Value | Ref Range | Performed | Pathologist | | | | | At | Signature | + + + + + + | WBC | 8.4 | 4.5 - 11.0 10 | EXTERNAL | | | | | | LAB | | + + + + + + | Non- | 5.49 | 4.3 - 5.7 10 | EXTERNAL | | | Red Blood | | | LAB | | | Cells | | | | | | Counted | | | | | + + + + + + | Hemoglobin | 16.2 | 13.5 - 18.0 | EXTERNAL | | | | | g/dL | LAB | | + + + + + + | Hematocrit, | 50.2 (A) | 41 - 50 % | EXTERNAL | | | POC | | | LAB | | + + + + + + | MCV | 91.4 | 81 - 99 fL | EXTERNAL [...] + + + + | Platelet | 370 | 140 - 440 K/ L | EXTERNAL | | | Count | | | LAB | | | Plasma | | | | | + + + + + + | RDW-CV | 13.5 | 10.5 - 15.0 % | EXTERNAL [...] + + + + | % | | % | EXTERNAL | | | Lymphocytes | | | LAB | | + + + + + + | % Monocytes | | % | EXTERNAL | | | | | | LAB | | + + + + + + | % | | [...] | | + +---------+ + + Magnesium (05/10/2017 10:40 AM PST) + +---------+ + + + [...] + +---------+ + + Renal Function Panel (05/10/2017 10:40 AM PST) + + + + + + | Component | Value | Ref Range | Performed | Pathologist | | | | | At | Signature | + + + + + + | Glucose, | 111 (A) | 70 - 100 mg/dL | EXTERNAL | | | Fasting | | | LAB | | + + + + + + | BUN | 21 | 6 - 23 mg/dL | EXTERNAL | | | | | | LAB | | + + + + + + | Creatinine | 1.44 (A) | 0.6 - 1.35 | EXTERNAL | | | | | mg/dL | LAB | | + + + + + + | PHOSPHORUS | | mg/dL | EXTERNAL | | | | | | LAB | | + + + + + + | Albumin | 3.9 [...] + + + | Anion Gap | 15.4 | 7 - 21 mmol/L | EXTERNAL | | | | | | LAB | | + + + + + + | eGFR if not | | | EXTERNAL | | | | | | LAB | | | [place] | | | | | + + + + + + | Phosphorus, | 3.4 | 2.5 - 5.0 | EXTERNAL | | | Inorganic | | | LAB | | + + + + + + | BUN/Creatin | 14.6 | 6.0 - 28.6 | EXTERNAL | | | ine Ratio | | | LAB | | + + + + + + | Calcium | 8.7 | 8.4 - 10.2 | EXTERNAL | | | | | mg/dL | LAB | | + + + + + + | Estimated | 53 (A) | 60 mg/dL | EXTERNAL | [...]
--- OUTSIDE RECORDS SUMMARY | ~2019-10-28 | XMS | Encounter Summary ---
Demographics + + + | Address | [address] | | | [place] [address] | + + + | Home Phone [...] Krissy Rogers | BRADEN | [place] [address] | | + + + + + | Bay Rogers | ECON | Unknown | | + + + + + Care Team Providers + +------+ + | Care Medical Voucher Clerk Name | Role | Phone | + +------+ + | Jono Arambula | PCP | | + +------+ + Encounter Details +--------+ + + + + | Date | Type | Department | Care Team | Description | +--------+ + + + + | 01/20/ | Document-Sc | UNKNOWN DEPARTMENT | Unknown . | | | 2012 | anned | [address] | | | | | | [address] | | | | | | [place], [place] | | | | | | [address] | | | +--------+ + + + [...] | | 2019 | Visit | | [address] | | | | | | [address] | | | | | | [place], [place] | | | | | | [address] | | | | | | [phone] | | | | | | | | +--------+---------+ + + + documented as of this encounter Visit Diagnoses Not on filedocumented in this encounter"
--- OUTSIDE RECORDS SUMMARY | ~2019-10-28 | XMS | Encounter Summary ---
Demographics + + + | Address | [address] | | | [place] [address] | + + + | Home Phone | | + + + | Preferred Language | Unknown | + + + | Marital Status | Single | + + + | Episcopal Affiliation | CHR | + + + [...] Krissy Rogers | BRADEN | [place] [address] | | + + + + + | Bay Rogers | ECON | Unknown | | + + + + + Care Team Providers + +------+ + | Care Wheel Adjuster Name | Role | Phone | + +------+ + | Bola Chaudhry MD | PCP | | + +------+ + Encounter Details +--------+ + + + + | Date | Type | Department | Care Team | Description | +--------+ + + + + | 02/28/ | Ancillary | LAB IMMUNOGENETIC | | | | 2011 | Orders | [facility] | | | | | | [address] | | | | | | [place], | | | | | | [place] [address] | | | +--------+ + + + [...] | | 2019 | Visit | | [address] | | | | | | [address] | | | | | | [place], [place] | | | | | | [address] | | | | | | [phone] | | | | | | | | +--------+---------+ + + + documented as of this encounter Procedures + +--------+ + + + | Procedure Name | Priori | Date/Time | Associated Diagnosis | Comments | | | ty | | | | + +--------+ + + + | LIT FLOW HLA AB | Routin | 02/29/2012 | End stage renal | | | QUICK SCREEN I/II | e | 2:31 PM | disease [ICD-9-CM] | | | | | PST | | | + +--------+ + + + documented in this encounter Results LIT FLOW HLA AB QUICK SCREEN I/II (02/29/2012 2:31 PM PST) + + | Specimen | + + | Blood - Blood | + + + + + + + | Performing | Address | City/State/Zipcode | Phone Number | | Organization | | | | + + + + + | [facility] - | [address] | [place] [address] | | | IMMUNOGENETICS/TRANS | [address] | | | | [facility] | | | | + + + + + documented in this encounter Visit Diagnoses + + | Diagnosis | + + | End stage renal disease (HCC) End stage renal disease | + + documented in this encounter"
--- OUTSIDE RECORDS SUMMARY | ~2019-10-28 | XMS | Encounter Summary ---
Demographics + + + | Address | [address] | | | [place] [address] | + + + | Home Phone | | + + + | Preferred Language | Unknown | + + + | Marital Status | | + + + | Spiritism Affiliation | 1013 | + + + | Race | Unknown | + + + | Ethnic Group | Unknown | + + + Author + + + | Author | [facility] | | | and [place] | + + + | Organization | [facility] | | | and [...] | | | [facility] | | | | | [address] | | + + + + + | Ellen Rogers | ECON | [address] | | | | | [place] | | + + + + + | Gisell Rogers | ECON | Unknown | | + + + + + Care Team Providers + +------+ + | Care Call Manager Name | Role | Phone | + +------+ + | David Estrada MD | PCP | Unavailable | + +------+ + Reason for Visit +--------+--------+ + | Reason | Onset | Comments | | | Date | | +--------+--------+ + | Other | 09/18/ | | | | 2012 | | +--------+--------+ + Encounter Details +--------+ + + + + | Date | Type | Department | Care Team | Description | +--------+ + + + + | 09/18/ | Telephone | [facility] | Yoav Duron MD | Other | | 2012 | | GASTROENTEROLOGY | [address] | | | | | [address] | [address] [place], [place] | | | | | [address] [place] | [address] | | | | | [address] | | | | | | [phone] | | | +--------+ + + + [...] Notes Telephone Encounter - Radha Bejarano - 10/03/2012 1:43 PM Dell called back, jessica weaver the phone number to Dr Cabrera's office, this was given to them. Asked that April call back if anything is needed. Telephone Encounter - Julisa Howard ARNP - 10/02/2012 8:49 AM PDTResearched addition al provider to refer for gastric pacing. Was unable to find a provider at [facility]. Called Dr. Cabrera's office. EGD from April sent for potential reconsideration fo r consultation for gastric pacing. Thank you elephone Encounter - Radha Bejarano - 09/30/2012 2:39 PM Wilson Sharpe's caregiver called back--they have not heard from Dr Cabrera's office yet! I w ill talk to Viki and see if there is anyone else We could send Wilson to? We have been trying to get him in with Dr Cabrera for over a month and even though I called Dr Cabrera's office 3-4 times each time they said they would call patient and at least let them know if Dr Rick porter see him. But no one has called. elephone Encounter - Radha Bejarano - 09/30/2012 2:11 PM PDTLeft message a sking for a call back. Has Wilson heard from Dr Cabrera? elephone Encounter - Radha Bejarano - 09/25/2012 8:32 AM PDTPatients Caregiver called and said they have not heard from Dr Cabrera's office yet. I sandy led Rick's office and spoke to Brooke he said he has spoken with Dr Cabrera's nurse about thi s patient several different times. He said because Wilson is not diabetic he probably won't ge t seen by Dr Cabrera. Told him that Wilson is diabetic! He then went through patient chart and s aid everything is there that is needed for an appointment. He will try to have nurse call me or Wilson today. I left this message on April's phone. elephone Jamey - Radha Bejarano - 09/24/2012 10:39 A M PDTLeft message for Liseth to call me back regarding Dr Cabrera appointment. Did they call Wilson? elephone Radha Pradhan - 09/19/2012 8:17 AM Kar Cabrera's clinic office phone number is [phone]. elephone Lazaro rawls - Radha Bejarano - 09/19/2012 8:12 AM Wilson Wise's caregiver called back. I told her I am waiting for Dr Cabrera's office to call me back so that we can get this appoin tment scheduled. Liseth verbalized understanding. I will call her when I know more.Raf izaguirre signed by Radha Bejarano at 09/19/2012 8:14 AM PDTTelephone Jamey - Radha Bejarano - 09/19/2012 8:[address] Cabrera office they do still have patient records for review. Told them that I had called on August 26 and was told the same thing. Patient is an xious to get in, he has been waiting a while now to be scheduled. Katy at Dr Cabrera's office said she will have the optical dispenser call me back to let me know what the hold up is. Tried to c all Wilson's caregiver--left message for her to return call. elephone Encounter - Aridarylamber Sandi Chris - 09/18/2012 11:38 AM PDTPatient care director rn is calling back to let you know that the patient does not carlin ve an appointment in [place] with Dr. Nabor zarco. She was calling to speak with you to see i f you might be able to find out when the appointment might be scheduled. Please call April ballard at [phone] signed by Sandi Bailey at 09/18/2012 11:41 AM PDT documented in this encounter Plan of Treatment +--------+---------+ + + + | Date | Type | Specialty | Care Team | Description | +--------+---------+ + + + | 01/04/ | Office | Nephrology | Jaren Pelayo MD | | | 2020 | Visit | | [address] [facility] [address] | | | | | | [address] [place], [place] | | | | | | [address] | | | | | | | | +--------+---------+ + + + documented as of this encounter Visit Diagnoses Not on filedocumented in this encounter"
--- OUTSIDE RECORDS SUMMARY | ~2019-10-28 | XMS | Encounter Summary ---
Demographics + + + | Address | [address] | | | [place] [address] | + + + | Home Phone [...] Krissy Rogers | BRADEN | [place] [address] | | + + + + + | Bay Rogers | ECON | Unknown | | + + + + + Care Team Providers + +------+ + | Care Labourers Name | Role | Phone | + [...] Elena | | | | | | [facility] | [address] | | | | | | Medicine | [address] | | | | | | Clinic [address] | | | | | | [address] | [place], [place] | | | | | | [address] | [address] | | | | | | [place], | Phone: | | | | | | [place] [address] | [phone] | | | | | | Phone: | Fax: | | | | | | [phone] | [phone] | | | | | | Fax: | | | | | | | [phone] | | +--------+--------+ + + + + Encounter Details +--------+---------+ + + + | Date | Type | Department | Care Team | Description | +--------+---------+ + + + | 01/19/ | Office | [facility] | Maria Elena Balbuena, | 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 [facility] Progress Note 01/20/2016 CC: Diabetic Eye Examination Initial History: Referred back by Dr. Chaudhry at [facility] for diabetic retinopathy eye exam. 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
--- OUTSIDE RECORDS SUMMARY | ~2019-10-28 | XMS | Encounter Summary ---
Demographics + + + | Address | [address] | | | [place] [address] | + + + | Home Phone [...] [address] | | | | | [address] | | + + + + + | Ellen Rogers | ECON | [address] | | | | | [place] | | + + + + + | Gisell Rogers | ECON | Unknown | | + + + + + Care Team Providers + +------+ + | Care Zipper Setter Chainstitch Name | Role | Phone | + +------+ + | Lizbet Sellers MD | PCP | | + +------+ + Encounter Details +--------+ + + + + | Date | Type | Department | Care Team | Description | +--------+ + + + + | 09/21/ | Orders Only | [facility] | Conversion | | | 2017 | | NEPRHOLOGY [place] | Transaction, | | | | | [address] | Provider Unknown | | | | | [address] [place], [place] | [phone] | | | | | [address] | | | | | | [phone] | | | +--------+ + + + [...] 2019 | Visit | | [address] [facility] | | | | | | [address] [place] | | | | | | [address] | | | | | | | | +--------+---------+ + + + documented as of this encounter Procedures + +--------+ + + + | Procedure Name | Priori | Date/Time | Associated Diagnosis | Comments | | | ty | | | | + +--------+ + + + | EXTERNAL LAB: | Routin | 09/21/2016 | | Results for this | | TACROLIMUS LEVEL, | e | 12:00 AM | | procedure are in the | | LC-MS/MS | | PDT | | results section. | + +--------+ + + + | EXTERNAL LAB: CBC | Routin | 09/21/2016 | | Results for this | | | e | 12:00 AM | | procedure are in the | | | | PDT | | results section. | + +--------+ + + + | URINALYSIS WITH | Routin | 09/21/2016 | | Results for this | | MICROSCOPIC IF | e | 12:00 AM | | procedure are in the | | INDICATED | | PDT | | results section. | + +--------+ + + + | RENAL FUNCTION PANEL | Routin | 09/21/2016 | | Results for this | | | e | 12:00 AM | | procedure are in the | | | | PDT | | results section. | + +--------+ + + + documented in this encounter Results External Lab: Tacrolimus Level, LC-MS/MS (09/21/2016 12:00 AM PDT) + +-------+ + + [...] + + Urinalysis with Microscopic if Indicated (09/21/2016 12:00 AM PDT) + + + + [...] + + + | Spec Grav, | 1.032 (A) | 1.005 - 1.030 | EXTERNAL [...] + + + | pH, Urine | | | EXTERNAL | | | [...] + +---------+ + + External Lab: CBC (09/21/2016 12:00 AM PDT) + + + + + + | Component | Value | Ref Range | Performed | Pathologist | | | | | At | Signature | + + + + + + | WBC | 6.2 | 4.5 - 11.0 10 | EXTERNAL | | | | | | LAB | | + + + + + + | Non- | 4.51 | 4.3 - 5.7 10 | EXTERNAL | | | Red Blood | | | LAB | | | Cells | | | | | | Counted | | | | | + + + + + + | Hemoglobin | 13.9 | 13.5 - 18.0 | EXTERNAL | | | | | g/dL | LAB | | + + + + + + | Hematocrit, | 42.2 | 41 - 50 % | EXTERNAL | | | POC | | | LAB | | + + + + + + | MCV | 93.7 | 81 - 99 fL | EXTERNAL [...] + + + + | Platelet | 316 | 140 - 440 K/ L | EXTERNAL | | | Count | | | LAB | | | Plasma | | | | | + + + + + + | RDW-CV | 14.5 | 10.5 - 15.0 % | EXTERNAL [...] + + + | % Segmented | 59.5 | 39 - 80 % | EXTERNAL | | | | | | LAB | | | Neutrophils | | | | | + + + + + + | % | 22.1 (A) | 24 - 44 % | EXTERNAL | | | Lymphocytes | | | LAB | | + + + + + + | % Monocytes | 15.6 (A) | 0 - 12 % | [...] + +---------+ + + Renal Function Panel (09/21/2016 12:00 AM PDT) + + + + + + | Component | Value | Ref Range | Performed | Pathologist | | | | | At | Signature | + + + + + + | Glucose, | 80 | 70 - 100 mg/dL | EXTERNAL | | | Fasting | | | LAB | | + + + + + + | BUN | 18 | 6 - 23 mg/dL | EXTERNAL | | | | | | LAB | | + + + + + + | Creatinine | 1.66 (A) | 0.60 - 1.35 | EXTERNAL [...] + + + + | K | 3.9 | 3.6 - 5.1 | EXTERNAL | [...] + + + | Anion Gap | 16.9 | 7 - 21 mmol/L | EXTERNAL | | | | | | LAB | | + + + + + + | eGFR if not | | | EXTERNAL | | | | | | LAB | | | CROATIAN | | | | | + + + + + + | Phosphorus, | 4.1 | 2.5 - 5.0 | EXTERNAL | | | Inorganic | | | LAB | | + + + + + + | BUN/Creatin | 10.8 | 6.0 - 28.6 | EXTERNAL | | | ine Ratio | | | LAB | | + + + + + + | Calcium | 8.3 (A) | 8.4 - 10.2 | EXTERNAL | | | | | mg/dL | LAB | | + + + + + + | Estimated | 45 (A) | 60 mg/dL | EXTERNAL | [...]
--- OUTSIDE RECORDS SUMMARY | ~2019-10-28 | XMS | Encounter Summary ---
Demographics + + + | Address | [address] | | | [place] [address] | + + + | Home Phone [...] + + + | Author | [facility] | + + + | Organization | [facility] | + + + | Address | Unknown | + + + | Phone | Unavailable | + + + Support + + + + + | Name | Relationship | Address | Phone | + + + + + | Krissy Rogers | BRADEN | [place] [address] | | + + + + + | Bay Rogers | ECON | Unknown | | + + + + + Care Team Providers + +------+ + | Care Analytical Technician Name | Role | Phone | + +------+ + | Jono Arambula | PCP | | + +------+ + Encounter Details +--------+ + + + + | Date | Type | Department | Care Team | Description | +--------+ + + + + | 08/01/ | Abstract | [facility] | Clinic, | | | 2012 | | [facility] at [facility] [address] | Gastroenterology | | | | | Siomara Rangel | | | | | | Mailcode: Center | | | | | | for Health and | | | | | | [facility], [facility] [address] | | | | | | [place], [place] | | | | | | [address] | | | | | | [phone] | | | +--------+ + + + [...] [address] | | | | | | [place], [place] | | | | | | [address] | | | | | | [phone] | | | | | | | | +--------+---------+ + + + documented as of this encounter Visit Diagnoses Not on filedocumented in this encounter"
--- OUTSIDE RECORDS SUMMARY | ~2019-10-28 | XMS | Encounter Summary ---
Demographics + + + | Address | [address] | | | [place] [address] | + + + | Home Phone [...] [place] | | | | | [address] | | + + + + + | Ellen Rogers | ECON | [address] | | | | | [place] | | + + + + + | Gisell Rogers | ECON | Unknown | | + + + + + Care Team Providers + +------+ + | Care Beauty Advisor Name | Role | Phone | + +------+ + PCP | Unavailable | + +------+ + Encounter Details +--------+ + + + + | Date | Type | Department | Care Team | Description | +--------+ + + + + | 07/23/ | Hospital | [facility] | [place] | | | 2000 | Encounter | MED CTR GENERIC OP | MD Mac Need | | | | | CONV DEPT [address] | updated address | | | | | [place], | | | | | | [place] [address] | | | | | | [phone] | | | +--------+ + + + [...] 2020 | Visit | | [address] [facility] | | | | | | [address] [place] | | | | | | [address] | | | | | | | | +--------+---------+ + + + documented as of this encounter Visit Diagnoses Not on filedocumented in this encounter"
--- OUTSIDE RECORDS SUMMARY | ~2019-10-28 | XMS | Encounter Summary ---
Demographics + + + | Address | [address] | | | [place] [address] | + + + | Home Phone | | + + + | Preferred Language | Unknown | + + + | Marital Status | | + + + | Scientology Affiliation | 1013 | + + + | Race | Unknown | + + + | Ethnic Group | Unknown | + + + Author + + + | Author | [facility] | | | and [place] | + + + | Organization | [facility] | | | [...] [address] | | | | | [address] | | + + + + + | Ellen Rogers | ECON | [address] | | | | | [place] | | + + + + + | Gisell Rogers | ECON | Unknown | | + + + + + Care Team Providers + +------+ + | Care Roll On Man Name | Role | Phone | + +------+ + | Lizbet Sellers MD | PCP | | + +------+ + Encounter Details +--------+ + + + + | Date | Type | Department | Care Team | Description | +--------+ + + + + | 10/09/ | Anesthesia | [facility] | Alfred aDrden MD | | | 2017 | Event | MED CTR MP INTRA OP | [address] | | | | | [address] | [place] | | | | | [place] | [address] | | | | | [address] | | | | | | [phone] | | | +--------+ + + + + Anesthesia Record + + + + + | Procedure Name | Responsible | Anesthesia Start | Anesthesia Stop Time | | | Anesthesiologist | Time | | + + + + + | [facility] ([facility]) | Alfred Darden MD | 10/09/16 1142 | 10/09/16 1155 | + + + + + +----+---+ + + | Da | T | Event | Comment | | te | i | | | | | m | | | | | e | | | +----+---+ + + | 06 | 1 | | | | /1 | 1 | | | | 9/ | 0 | | | | 20 | 6 | | | | 17 | | | | +----+---+ + + | | 1 | An Checkout | Pre-use anesthesia machine/equipment checkout. | | | 1 | | | | | 4 | | | | | 2 | | | +----+---+ + + | | 1 | An Start | Reassessment prior to anesthesia induction/procedure. | | | 1 | | | | | 4 | | | | | 2 | | | +----+---+ + + | | 1 | AN | Per surgeon request | | | 1 | Antibiotic | | | | 4 | declined | | | | 2 | | | +----+---+ + + | | 1 | Breathing | | | | 1 | Spontaneous | | | | 4 | ly | | | | 2 | | | +----+---+ + + | | 1 | An Start | | | | 1 | Data | | | | 4 | | | | | 2 | | | +----+---+ + + | | 1 | an stop | | | | 1 | data | | | | 5 | | | | | 0 | | | +----+---+ + + | | 1 | An Stop | Patient handed off to recovery nurse. | | | 5 | | | | | 5 | | | +----+---+ + + +------+ | Meds | +------+ + +--------+ | Name | Total | + +--------+ | propofol (DIPRIVAN) injection | 100 mg | | (bolus) (20 mL) | | + +--------+ | sodium chloride 0.9% (NS) | 300 mL | | infusion | | + +--------+ + + | No agents on file. | + + + + | No blood administrations on file. | + + +--------+ + + + | Type | Details | Placement | Removal | +--------+ + + + | Periph | 10/09/16; 1100; Left; Hand; | 10/09/16 1100 by | 10/09/16 1314 by | | eral | [id number] catheter system; | Ami Wills RN | Cindi Faith RN | | IV | 20 gauge; distraction, | | | | | intradermal injection, tolerated | | | | | well; no longer indicated, | | | | | catheter/device intact, removed | | | | | per policy/procedure, site care | | | | | per policy/procedure; short term | | | | | use; 10/09/16; 1314 | | | +--------+ + + + documented in this encounter Social History + + + +--------+ + [...] + + documented as of this encounter [place] Notes Anesthesia Postprocedure Evaluation - Alfred Darden MD - 10/09/2016 11:58 AM PDT ANESTHESIA POSTANESTHESIA EVALUATION Wilson Rogers 46 y.o. male 1970 [id number] Procedure(s) EGD (N/A Mouth) Cooperates? Yes Mental Status Performs simple tasks. Respiratory Satisfactory - Airway patent (self maintained). Cardiovascular Satisfactory - Blood pressure and heart rate acceptable Temperature Satisfactory Pain Satisfactory N/V Control Satisfactory Hydration Satisfactory - No signs of dehydration Complications None apparent Vitals: 10/09/16 1038 10/09/16 1153 BP: 147/84 Pulse: 71 65 Temp: 36.8 C (98.2 F) 36.7 C (98.1 F) Resp: 16 17 SpO2: 97% 92% Electronically signed by Alfred Darden MD 10/09/2016 11[facility] at 2016 11:58 AM PDTAnesthesia Preprocedure Evaluation - Alfred Darden MD - 10/09/2016 11:02 A M PDT ANESTHESIA PREANESTHESIA EVALUATION Wilson Rogers 46 y.o. male 1970 [id number] Procedure(s): EGD (N/A Mouth) Medical history, anesthesia, medications, allergy, NPO status verified histories reviewed. Review of Systems / Med History Anesthesia History No anesthesia complications. Cardiovascular (+) hypertension, CAD Psychology (+) anxiety, depression Gastrointestinal/Hepatic (+) hyperlipidemia Endocrine (+) hypothyroidism (+) Diabetes: type 1 (+) obesity: BMI (30-39) Physical Exam Airway MP II, TM >3 FB, Mouth opening >2 FB. Neck: full ROM, extends >30 degrees. Jaw protrus ion normal. Dental ; (+) dentures-lower and dentures-upper. CV Rhythm regular. Rate normal. (-) murmur. Pulm Clear to auscultation bilaterally. Neuro Grossly normal. Anesthesia Plan ASA 3 (asa 3 due to IDDM type 1 with complications) Type: TIVA. Induction: Intravenous. Potential problems: None anticipated. Monitors: Standard ASA monitors. Consent statement:Anesthetic plan, alternatives, risks and benefits discussed with patient. Risks discussed included (but were not limited to): nausea, pain, . Consenting person understands and agrees to proceed. Electronically Signed by: Alfred Darden MD ESig date/time: 10/09/2016 11:02 documented in this enco unter Plan of Treatment +--------+---------+ + + + | Date | Type | Specialty | Care Team | Description | +--------+---------+ + + + | 01/04/ | Office | Nephrology | Jaren Pelayo MD | | | 2020 | Visit | | [address] [facility] | | | | | | [address] [place], [place] | | | | | | [address] | | | | | | | | +--------+---------+ + + + documented as of this encounter Visit Diagnoses Not on filedocumented in this encounter Administered Medications + +--------+ +--------+------+------+ | Medication Order | MAR | Action | Dose | Rate | Site | | | Action | Date | | | | + +--------+ +--------+------+------+ | propofol (DIPRIVAN) injection | Given | 10/10/19 | 100 mg | | | | Intravenous, PRN, Starting Mon | | 17 11:45 | | | | | 10/09/16 at 1145, Anesthesia | | AM PDT | | | | | Intra-op | | | | | | + +--------+ +--------+------+------+ +---+---+ | | | +---+---+ + +---------+ +---+---+---+ | sodium chloride 0.9% (NS) | New Bag | 10/10/19 | | | | | infusion at 25 mL/hr, | | 17 11:41 | | | | | Intravenous, CONTINUOUS, Starting | | AM PDT | | | | | 10/09/16 at 1200, TKO, Pre-op | | | | | | + +---------+ +---+---+---+ +---+---+ | | | +---+---+ documented in this encounter"
--- OUTSIDE RECORDS SUMMARY | ~2019-10-28 | XMS | Encounter Summary ---
Demographics + + + | Address | [address] | | | [place] [address] | + + + | Home Phone | | + + + | Preferred Language | Unknown | + + + | Marital Status | | + + + | Adventist Affiliation | 1013 | + + + | Race | Unknown | + + + | Ethnic Group | Unknown | + + + Author + + + | Author | [facility] | | | and [place] | + + + | Organization | [facility] | | | [...] [address] | | | | | [address] | | + + + + + | Ellen Rogers | ECON | [address] | | | | | [place] | | + + + + + | Gisell Rogers | ECON | Unknown | | + + + + + Care Team Providers + +------+ + | Care Powder Press Operator Name | Role | Phone | + +------+ + | Lizbet Sellers MD | PCP | | + +------+ + Encounter Details +--------+ + + + + | Date | Type | Department | Care Team | Description | +--------+ + + + + | 04/07/ | Orders Only | [facility] | Conversion | | | 2015 | | NEPHROLOGY [place] | Transaction, | | | | | [address] [facility] | Provider Unknown | | | | | [address] [place], [place] | | | | | | [address] | (Fax) | | | | | [phone] | | | +--------+ + + + [...] 2019 | Visit | | [facility] [address] [facility] | | | | | | [address] [place] | | | | | | [address] | | | | | | | | +--------+---------+ + + + documented as of this encounter Procedures + +--------+ + + + | Procedure Name | Priori | Date/Time | Associated Diagnosis | Comments | | | ty | | | | + +--------+ + + + | URINALYSIS, | Routin | 04/07/2016 | | Results for this | | MICROSCOPIC ONLY | e | 12:00 AM | | procedure are in the | | | | PST | | results section. | + +--------+ + + + | PROTEIN/CREATININE | Routin | 04/07/2016 | | Results for this | | RATIO, URINE | e | 12:00 AM | | procedure are in the | | | | PST | | results section. | + +--------+ + + + documented in this encounter Results Protein/Creatinine Ratio, Urine (04/07/2016 12:00 AM PST) + +-------+ + + + | Component | Value | Ref Range | Performed | Pathologist | | | | | At | Signature | + +-------+ + + + | Protein/Cre | 34.1 | 0 - 150 | EXTERNAL | [...] + +---------+ + + Urinalysis, Microscopic Only (04/07/2016 12:00 AM PST) + + + + [...] + + + + | Specific | 1.031 (A) | 1.005 - 1.030 | EXTERNAL | | | [place], | | | LAB | | | [...]
--- OUTSIDE RECORDS SUMMARY | ~2019-10-28 | XMS | Encounter Summary ---
Demographics + + + | Address | [address] | | | [place] [address] | + + + | Home Phone | | + + + | Preferred Language | Unknown | + + + | Marital Status | | + + + | Anglican Affiliation | 1013 | + + + [...] [address] | | | | | [address] | | + + + + + | Ellen Rogers | ECON | [address] | | | | | [place] | | + + + + + | Gisell Rogers | ECON | Unknown | | + + + + + Care Team Providers + +------+ + | Care Trailer Sections Assembler Name | Role | Phone | + +------+ + | Lizbet Sellers MD | PCP | | + +------+ + Encounter Details +--------+ + + + + | Date | Type | Department | Care Team | Description | +--------+ + + + + | 01/28/ | Orders Only | [facility] | Jaren Pelayo MD | | | 2018 | | NE[place]HOLOGY [place] | [address] [facility] [address] | | | | | [address] | [address] [place], [place] | | | | | [address] [place], [place] | [address] | | | | | [address] | | | | | | [phone] | | | +--------+ + + + [...] [place] | | | | | | [address] | | | | | | | | +--------+---------+ + + + documented as of this encounter Procedures + +--------+ + + + | Procedure Name | Priori | Date/Time | Associated Diagnosis | Comments | | | ty | | | | + +--------+ + + + | EXTERNAL LAB: CBC | Routin | 01/28/2018 | | Results for this | | | e | 12:00 AM | | procedure are in the | | | | PDT | | results section. | + +--------+ + + + | URINALYSIS WITH | Routin | 01/28/2018 | | Results for this | | MICROSCOPIC IF | e | 12:00 AM | | procedure are in the | | INDICATED | | PDT | | results section. | + +--------+ + + + | VITAMIN D, | Routin | 01/28/2018 | | Results for this | | DEFICIENCY SCREEN | e | 12:00 AM | | procedure are in the | | (25-HYDROXY) | | PDT | | results section. | + +--------+ + + + | PROTEIN/CREATININE | Routin | 01/28/2018 | | Results for this | | RATIO, URINE | e | 12:00 AM | | procedure are in the | | | | PDT | | results section. | + +--------+ + + + | PARATHYROID HORMONE, | Routin | 01/28/2018 | | Results for this | | INTACT | e | 12:00 AM | | procedure are in the | | | | PDT | | results section. | + +--------+ + + + | MAGNESIUM | Routin | 01/28/2018 | | Results for this | | | e | 12:00 AM | | procedure are in the | | | | PDT | | results section. | + +--------+ + + + | RENAL FUNCTION PANEL | Routin | 01/28/2018 | | Results for this | | | e | 12:00 AM | | procedure are in the | | | | PDT | | results section. | + +--------+ + + + documented in this encounter Results Protein/Creatinine Ratio, Urine (01/28/2018 12:00 AM PDT) + + + + + + | Component | Value | Ref Range | Performed | Pathologist | | | | | At | Signature | + + + + + + | Protein/Cre | 543.9 (A) | 0 - 150 | EXTERNAL | [...] + + Vitamin D, Deficiency Screen (25-Hydroxy) (01/28/2018 12:00 AM PDT) + +-------+ + + + | Component | Value | Ref Range | Performed | Pathologist | | | | | At | Signature | + +-------+ + + + | Vit D, | 51 | 30 - 100 | EXTERNAL | | | 25-Hydroxy | [...] + + Urinalysis with Microscopic if Indicated (01/28/2018 12:00 AM PDT) + + + [...] + + + | Spec Grav, | 1.024 | 1.005 - 1.030 | EXTERNAL | [...] + + + + | Glucose, | Trace | | EXTERNAL | | | Urine [...] + +---------+ + + External Lab: CBC (01/28/2018 12:00 AM PDT) + +-------+ + + + | Component | Value | Ref Range | Performed | Pathologist | | | | | At | Signature | + +-------+ + + + | WBC | 6.7 | 4.5 - 11 10 | EXTERNAL | | | | | | LAB | | + +-------+ + + + | Non- | 4.57 | 4.3 - 5.7 10 | EXTERNAL | | | Red Blood | | | LAB | | | Cells | | | | | | Counted | | | | | + +-------+ + + + | Hemoglobin | 13.8 | 13.5 - 18 g/dL | EXTERNAL | | | | | | LAB | | + +-------+ + + + | Hematocrit, | 41.2 | 41 - 50 % | EXTERNAL [...] +-------+ + + + | Platelet | 365 | 140 - 440 K/ L | EXTERNAL | | | Count | | | LAB | | | Plasma | | | | | + +-------+ + + + | RDW-CV | 14.4 | 10.5 - 15 % | EXTERNAL | | | | [...] + +---------+ + + Parathyroid Hormone, Intact (01/28/2018 12:00 AM PDT) + +-------+ + + + | Component | Value | Ref Range | Performed | Pathologist | | | | | At | Signature | + +-------+ + + + | PTH INTACT | 41.99 | 15 - 65 pg/mL | EXTERNAL [...] | | + +---------+ + + Magnesium (01/28/2018 12:00 AM PDT) + +---------+ + + [...] + +---------+ + + Renal Function Panel (01/28/2018 12:00 AM PDT) + +---------+ + + + | Component | Value | Ref Range | Performed | Pathologist | | | | | At | Signature | + +---------+ + + + | Glucose, | 195 (A) | 70 - 100 mg/dL | EXTERNAL | | | Fasting | | | LAB | | + +---------+ + + + | BUN | 23 | 6 - 23 mg/dL | EXTERNAL | | | | | | LAB | | + +---------+ + + + | Creatinine | 1.29 | 0.60 - 1.35 | EXTERNAL | | | | | mg/dL | LAB | | + +---------+ + + + | PHOSPHORUS | 3.8 | 2.5 - 5.0 mg/dL | EXTERNAL [...] +---------+ + + + | K | 3.7 | 3.6 - 5.1 | EXTERNAL | [...] + + + | Anion Gap | 16.7 | 7 - 21 mmol/L | EXTERNAL | | | | | | LAB | | + +---------+ + + + | eGFR if not | | | EXTERNAL | | | | | | LAB | | | [place] | | | | | + +---------+ + + + | Phosphorus, | | | EXTERNAL | | | Inorganic | | | LAB | | + +---------+ + + + | BUN/Creatin | 17.8 | 6 - 28.6 | EXTERNAL | | | ine Ratio | | | LAB | | + +---------+ + + + | Calcium | 9.6 | 8.5 - 10.3 | EXTERNAL | | | | | mg/dL | LAB | | + +---------+ + + + | Estimated | 59 | mg/dL | EXTERNAL | | | [...]
--- OUTSIDE RECORDS SUMMARY | ~2019-10-28 | XMS | Encounter Summary ---
Demographics + + + | Address | [address] | | | [place] [address] | + + + | Home Phone [...] + + + | Author | [facility] | + + + | Organization | [facility] | + + + | Address | Unknown | + + + | Phone | Unavailable | + + + Support + + + + + | Name | Relationship | Address | Phone | + + + + + | Krissy Rogers | BRADEN | [place] [address] | | + + + + + | Bay Rogers | ECON | Unknown | | + + + + + Care Team Providers + +------+ + | Care Qc Scientist Name | Role | Phone | + +------+ + | Jono Arambula | PCP | | + +------+ + Reason for Visit + + + | Reason | Comments | + + + | Pre-op evaluation | | + + + Encounter Details +--------+ + + + + | Date | Type | Department | Care Team | Description | +--------+ + + + + | 10/20/ | Telephone-S | Preoperative | Phone, [facility] [address] | Pre-op evaluation | | 2008 | cheduled | Medicine Clinic at | [facility] | | | | | [address] | [address] [place], [place] | | | | | Stay [address] | [address] | | | | [address] | | | | | | Mailcode: [id number] | | | | | | [facility] | | | | | | [address] [place], [place] | | | | | | [address] | | | | | | [phone] | | | +--------+ + + + [...] [address] | | | | | | [place], [place] | | | | | | [address] | | | | | | [phone] | | | | | | | | +--------+---------+ + + + documented as of this encounter Visit Diagnoses Not on filedocumented in this encounter"
--- OUTSIDE RECORDS SUMMARY | ~2019-10-28 | XMS | Encounter Summary ---
Demographics + + + | Address | [address] | | | [place] [address] | + + + | Home Phone [...] Krissy Rogers | BRADEN | [place] [address] | | + + + + + | Bay Rogers | ECON | Unknown | | + + + + + Care Team Providers + +------+ + | Care Pediatric Social Worker Name | Role | Phone | + +------+ + | Bola Chaudhry MD | PCP | | + +------+ + Reason for Visit + + + | Reason | Comments | + + + | Medical Eye | | | Examination | | + + + Encounter Details +--------+---------+ + + + | Date | Type | Department | Care Team | Description | +--------+---------+ + + + | 02/08/ | Office | [facility] | Sherrie Workman MD | PCO (posterior | | 2016 | Visit | [place]/[facility]mol | [address] | capsular | | | | ogy at [facility] [address] | [place], [place] | opacification), | | | | [address] Mailcode: | [id number] | right (Primary Dx); | | | | 11[facility] | [phone] | Proliferative | | | | Health and Healing, | | diabetic retinopathy | | | | Building | | of both eyes | | | | Floor [place], [place] | | without macular | | | | [address] | | edema associated | | | | [phone] | | with type 2 diabetes | | | | | | mellitus (HCC); | | | | | | Visual impairment in | | | | | | both eyes; Right | | | | | | posterior capsular | | | | | | opacification | +--------+---------+ + + + Social History [...] documented as of this encounter Progress Notes Rosaura Bang - 02/08/2017 2:30 PM PDT COMPREHENSIVE OPHTHALMOLOGY PROGRESS NOTE Assessment and Plan: Exam Date: 02/08/2017 Patient:Wilson Rogers ([id number]) Impression: s/p PPV/PPL/retinectomy/EL/gas OS on 12/02/2008 -retina stable and attached, f/b Dr. Lieberman Sulcus IOL OU good position -posterior capsular opacification OD. Discussed yag capsulotomy today 02/08/2017, will pro ceed Vision loss OD 2008 most likely due to severe hypoperfusion during dialysis - had brain MRI and findings and exam reviewed in the past with Dr. Roman - stable without recovery but no further decline Plan: F/u 1-4 weeks post op yag OD, may need additional treatment (fluffy cortex) Physician: Sherrie Workman MD 02/08/2017 HPI: Wilson Rogers ([id number]), 46 y.o. year old male from [place] : Patient presents with: Medical Eye Examination Was referred by Mio to get a Yag Laser in right eye. Tobacco use: reports that he quit smoking about 6 years ago. He has never used smokeless t obacco. 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 Family ocular history: Family history includes Additional Family History in his mother. See scanned intake form or preadmission data in [facility] for full Family ocular and medical [...] diabetes mellitus with ophthalmic manifestations, uncontrol led(250.52) ([facility]) Kidney replaced by transplant Encounter for long-term (current) use of medications Polycythemia, secondary Proliferative diabetic retinopathy of both eyes without macular edema associated with t ype 2 diabetes mellitus ([facility]) Past Medical History: Diagnosis Date Nephritis and [...] (Snellen - Linear) Right Left Dist sc HM 20/250 Tonometry (Tonopen, 2:40 PM) Right Left Pressure 10 09 Dilation Both eyes: 2.5% Phenylephrine, 1.0% Mydriacyl @ 2:38 PM Neuro/Psych Oriented x3: Yes Mood/Affect: Normal Slit Lamp and Fundus Exam External Exam Right Left External Normal Normal Slit Lamp Exam Right Left Lids/Lashes Normal Normal Conjunctiva/Sclera White and quiet White and quiet Cornea All layers clear All layers clear Anterior Chamber Deep and quiet Deep and quiet Iris Normal no NVI Normal no NVI Lens PC IOL in sulcus , 2+ PCO PC IOL in sulcus Fundus Exam Right Left Vitreous Normal Normal Disc pale pale Macula flat flat mild ERM no fluid Periphery PRP PRP and fibrosis all flat IRosaura, COT, performed, reviewed or revised the patient history, medications, all ergies, as well as performed elements noted in the Base Ophthalmology Exam, visual acuity an d IOP. See EPIC ophthalmology module for exam information. Assessment and Plan is now at the top of the note. I have reviewed and edited history and die cast technician documentation, and performed all other el ements to above examination documentation. Sherrie Workman MD Petrophysicist Comprehensive Ophthalmology [facility] Physician: Sherrie Workman MD Procedure Note 02/08/2017 for: Yag Laser / Capsulotomy, right eye Attending: Sherrie Workman MD Diagnosis: PCO (posterior capsular opacification), right (primary encounter diagnosis) Proliferative diabetic retinopathy of both eyes without macular edema associated with type 2 diabetes mellitus (HCC) Visual impairment in both eyes Right posterior capsular opacification Indication: After cataract causing visual impairment that is affecting activities of daily living Allergies: Benicar [olmesartan medoxomil]; Dilaudid [hydromorphone]; Lisinopril; Megace [me gestrol]; Morphine; Penicillins; and Reglan [metoclopramide hcl] Anesthesia: Topical anesthesia only PARQ held for above. Team Pause: At 3:28 PM, prior to the beginning of the procedure, the team paused to verify the patient s identity, the procedure to be performed (in accordance with the consent,) an d the correct side/site. The patient was positioned appropriately. All relevant images and r esults were properly labeled and displayed. We addressed antibiotic prophylaxis and fluids f or irrigation as applicable to this patient. Any safety precautions were addressed. Procedure: After satisfactory topical anesthesia with 0.5% proparacaine was obtained, the focusing emil s was inserted. 120 pulses of the YAG laser 2.3 mJ each were used to complete a posterior ca psulotomy, without difficulty. Patient tolerated the procedure well. The patient is to ret urn to the clinic in 1-2 weeks for DFE. After the procedure the patient reported: 0 pain in a scale of 0-10 Complications: None Sherrie Workman MD 02/08/2017 documented in this enc ounter Plan of Treatment +--------+---------+ + + + | Date | Type | Specialty | Care Team | Description | +--------+---------+ + + + | 01/26/ | Office | Ophthalmology | Maria Elena Lieberman, | | | 2019 | Visit | | [address] | | | | | [address] | | | | | | [place], [place] | | | | | | [address] | | | | | | [phone] | | | | | | | | +--------+---------+ + + + documented as of this encounter Procedures + +--------+ + + + | Procedure Name | Priori | Date/Time | Associated Diagnosis | Comments | | | ty | | | | + +--------+ + + + | MS DISCISSION,2ND | Routin | 02/08/2017 | Right posterior | | | CATARACT,LASER | e | 3:28 PM | capsular | | | | | PDT | opacification | | + +--------+ + + + | MS DISCISSION,2ND | Routin | 02/08/2017 | Right posterior | | | CATARACT,LASER | e | 3:28 PM | capsular | | | | | PDT | opacification | | + +--------+ + + + documented in this encounter Visit Diagnoses + + | Diagnosis | + + | PCO (posterior capsular opacification), right - Primary After-cataract, unspecified | + + | Proliferative diabetic retinopathy of both eyes without macular edema associated with | | type 2 diabetes mellitus (HCC) | + + | Visual impairment in both eyes Unqualified visual loss, both eyes | + + | Right posterior capsular opacification After-cataract, unspecified | + + documented in this encounter"
--- OUTSIDE RECORDS SUMMARY | ~2019-10-28 | XMS | Encounter Summary ---
Demographics + + + | Address | [address] | | | [place] [address] | + + + | Home Phone | | + + + | Preferred Language | Unknown | + + + | Marital Status | Single | + + + | Yarsani Affiliation | CHR | + + + [...] Krissy Rogers | BRADEN | [place] [address] | | + + + + + | Bay Rogers | ECON | Unknown | | + + + + + Care Team Providers + +------+ + | Care Party Plan Demonstrator Name | Role | Phone | + [...] Follow-up visit | | 2008 | | [facility] at | [address] | (cancelled seeing | | | | [address]abel[address] | [address] | another provider | | | | [address] | [place], [place] | Oswald) | | | | Eye [place], [facility] | [address] | | | | | [place], [place] | [phone] | | | | | [address] | [...] [address] | | | | | | [place], [place] | | | | | | [address] | | | | | | [phone] | | | | | | | | +--------+---------+ + + + documented as of this encounter Visit Diagnoses Not on filedocumented in this encounter"
--- OUTSIDE RECORDS SUMMARY | ~2019-10-28 | XMS | Encounter Summary ---
Demographics + + + | Address | [address] | | | [place] [address] | + + + | Home Phone [...] Krissy Rogers | BRADEN | [place] [address] | | + + + + + | Bay Rogers | ECON | Unknown | | + + + + + Care Team Providers + +------+ + | Care Production Manufacturing Worker Name | Role | Phone | [...] | | | | | Moraima Hernandez [place], | | | | | | [place] [address] | | | +--------+ + + + [...] | | 2019 | Visit | | [address] | | | | | | [address] | | | | | | [place], [place] | | | | | | [address] | | | | | | [phone] | | | | | | | [...] + + + | [facility] - | [address] | [place] [address] | | | IMMUNOGENETICS/TRANS | [address] | | | | [facility] | | | | + + + + + documented in this encounter Visit Diagnoses Not on filedocumented in this encounter"
--- OUTSIDE RECORDS SUMMARY | ~2019-10-28 | XMS | Encounter Summary ---
Demographics + + + | Address | [address] | | | [place] [address] | + + + | Home Phone | | + + + | Preferred Language | Unknown | + + + | Marital Status | | + + + | Islam Affiliation | 1013 | + + + | Race | Unknown | + + + | Ethnic Group | Unknown | + + + Author + + + | Author | [facility] | | | and [place] | + + + | Organization | [facility] | | [...] [address] | | | | | [address] | | + + + + + | Ellen Rogers | ECON | [address] | | | | | [place] | | + + + + + | Gisell Rogers | ECON | Unknown | | + + + + + Care Team Providers + +------+ + | Care Medical Insurance Coding Specialist Name | Role | Phone | + +------+ + | Lizbet Sellers MD | PCP | | + +------+ + Encounter Details +--------+ + + + + | Date | Type | Department | Care Team | Description | +--------+ + + + + | 08/08/ | Orders Only | [facility] | Conversion | | | 2015 | | NEPHROLOGY [place] | Transaction, | | | | | [address] | Provider Unknown | | | | | [address] [place], [place] | | | | | | [address] | (Fax) | | | | | [phone] | | | +--------+ + + + [...] 2019 | Visit | | [address] | | | | | | [address] [place] | | | | | | [address] | | | | | | | | +--------+---------+ + + + documented as of this encounter Procedures + +--------+ + + + | Procedure Name | Priori | Date/Time | Associated Diagnosis | Comments | | | ty | | | | + +--------+ + + + | BASIC METABOLIC | Routin | 08/09/2015 | | Results for this | | PANEL | e | 12:00 AM | | procedure are in the | | | | PDT | | results section. | + +--------+ + + + documented in this encounter Results Basic Metabolic Panel (08/09/2015 12:00 AM PDT) + + + + + + | Component | Value | Ref Range | Performed | Pathologist | | | | | At | Signature | + + + + + + | Glucose, | 159 (A) | 70 - 100 mg/dL | EXTERNAL | | | Fasting | | | LAB | | + + + + + + | BUN | 23 | 6 - 23 mg/dL | EXTERNAL | | | | | | LAB | | + + + + + + | Creatinine | 1.43 (A) | 0.60 - 1.35 | EXTERNAL | | | | | mg/dL | LAB | | + + + + + + | BUN/Creatin | 16.1 | 6.0 - 28.6 | EXTERNAL | | | ine Ratio | | | LAB | | + + + + + + | Calcium | 8.4 | 8.4 - 10.2 | EXTERNAL | | | | | mg/dL | LAB | | + + + + + + | Na | 133 | 132 - 143 | EXTERNAL | | | | | mmol/L | LAB | | + + + + + + | K | 4.5 | 3.6 - 5.1 | EXTERNAL | | | | | mmol/L | LAB | | + + + + + + | Cl | 97 | 95 - 112 mmol/L | EXTERNAL | | | | | | LAB | | + + + + + + | CO2 | 24 | 19 - 31 mmol/L | EXTERNAL | | | | | | LAB | | + + + + + + | Anion Gap | 16.5 | 7 - 21 mmol/L | EXTERNAL | | | | | | LAB | | + + + + + + | Estimated | 53 | mg/dL | EXTERNAL | | | [...]
--- OUTSIDE RECORDS SUMMARY | ~2019-10-28 | XMS | Encounter Summary ---
Demographics + + + | Address | [address] | | | [place] [address] | + + + | Home Phone [...] + + + | Author | [facility] | + + + | Organization | [facility] | + + + | Address | Unknown | + + + | Phone | Unavailable | + + + Support + + + + + | Name | Relationship | Address | Phone | + + + + + | Krissy Rogers | BRADEN | [place] [address] | | + + + + + | Bay Rogers | ECON | Unknown | | + + + + + Care Team Providers + +------+ + | Care Jordan Man Name | Role | Phone | [...] | | | | | | | [address] | | | | | | | [address] | | | | | | | [address] | | | | | | | [place], [place] | | | | | | | [address] | | | | | | | Phone: | | | | | | | [phone] | | | | | | | Fax: | | | | | | | [phone] | +--------+--------+ + + + + Encounter Details +--------+---------+ + + + | Date | Type | Department | Care Team | Description | +--------+---------+ + + + | 01/24/ | Office | [facility] | Maria Elena Balbuena, | Proliferative | | 2018 | Visit | [facility] at | [address] | diabetic retinopathy | | | | [address]abelle Jam[address] | of both eyes | | | | [address] | [place], [place] | without macular | | | | Eye [place], [facility] | [address] | edema associated | | | | floor [place], [place] | [phone] | with type 2 diabetes | | [...] might be different f rom the original. [facility] Progress Note 01/24/2018 47 y.o. male [...] | Examination: See Ophthalmology Module Attestations: The marine electronics technician, under the supervision of the physician, [...] [address] | | | | | | [place], [place] | | | | | | [address] | | | | | | [phone] | | | | | | | [...] Performed At | + + + | Client Technical Support Associate | [facility] | | DocumentationRight EyeQuality: [...] | + + + + + | [facility] | [address] | [place] [address] | | | INSTITUTE | [address]. | | | + + + + + OCT, RETINA (01/24/2018 2:38 PM PDT) + + + | Narrative | Performed At | + + + | Client Technical Support Associate | [facility] | | DocumentationRight EyeQuality: [...] + + | [facility] | [address] | [place] [address] | | | INSTITUTE | [place]. | [...]
--- OUTSIDE RECORDS SUMMARY | ~2019-10-28 | XMS | Encounter Summary ---
Demographics + + + | Address | [address] | | | [place] [address] | + + + | Home Phone | | + + + | Preferred Language | Unknown | + + + | Marital Status | Single | + + + | Taoist Affiliation | CHR | + + + [...] Krissy Rogers | BRADEN | [place] [address] | | + + + + + | Bay Rogers | ECON | Unknown | | + + + + + Care Team Providers + +------+ + | Care Weathercaster Name | Role | Phone | + [...] Refill Request | | 2008 | | [facility] at | [address] | | | | | [facility] [address] | [place], [place] | | | | | [address] | [address] | | | | | Eye [place], [facility] | | | | | | [place], [place] | | | | | | [address] | | | +--------+--------+ + + + [...] [address] | | | | | | [place] | | | | | | [address] | | | | | | [phone] | | | | | | | | +--------+---------+ + + + documented as of this encounter Visit Diagnoses Not on filedocumented in this encounter"
--- OUTSIDE RECORDS SUMMARY | ~2019-10-28 | XMS | Encounter Summary ---
Demographics + + + | Address | [address] | | | [place] [address] | + + + | Home Phone [...] + + + | Author | [facility] | + + + | Organization | [facility] | + + + | Address | Unknown | + + + | Phone | Unavailable | + + + Support + + + + + | Name | Relationship | Address | Phone | + + + + + | Krissy Rogers | BRADEN | [place] [address] | | + + + + + | Bay Rogers | ECON | Unknown | | + + + + + Care Team Providers + +------+ + | Care Senior Mobile Developer Name | Role | Phone | [...] II | | 2008 | Visit | [facility] at | MD [address] | ([facility]); | | | | [facility] [address] | Proliferative | | | | [address] | [place], [place] | Diabetic Retinopathy | | | | Eye [place], [facility] | [address] | ([facility]); Traction | | | | floor [place], [place] | [phone] | Detachment of Retina | | | [...] PARQ. Sami Celis MD, PhD, Vitreoretinal Fellow, [facility], 12/01/2008 Maria Elena Lieberman MD I am [...] | | 2019 | Visit | | [address] | | | | | | [address] | | | | | | [place], [place] | | | | | | [address] | | | | | | [phone] | | | | | | | [...] | TOMOGRAPHY | | e | II ([facility]) | 12/01/2008, Expires: | | [...] | | | | e | II ([facility]) | 12/01/2008, Expires: | | | | | Proliferative | 01/30/2009 | | | | | Diabetic Retinopathy | | | | | | ([facility]) Traction | | | | | | Detachment of Retina | | + + +--------+ + + | DE OPTHALMIC DX | Procedures | Routin | DM Eye Manif Type | Ordered: 12/09/2008 | | IMAGING | | e | II ([facility]) | | | | | | Proliferative | | | | | | Diabetic Retinopathy | | | | | | ([facility]) Traction | | | | | | Detachment of Retina | | + + +--------+ + + documented as of this encounter Visit Diagnoses + + | Diagnosis | + + | Type II or unspecified type diabetes mellitus with ophthalmic manifestations, not | | stated as uncontrolled(250.50) ([facility]) Type II or unspecified type diabetes mellitus with | | ophthalmic manifestations, not stated as uncontrolled | + + | Proliferative diabetic retinopathy(362.02) Proliferative diabetic retinopathy | + + | Traction detachment of retina | + + documented in this encounter
--- OUTSIDE RECORDS SUMMARY | ~2019-10-28 | XMS | Encounter Summary ---
Demographics + + + | Address | [address] | | | [place] [address] | + + + | Home Phone [...] Krissy Rogers | BRADEN | [place] [address] | | + + + + + | Bay Rogers | ECON | Unknown | | + + + + + Care Team Providers + +------+ + | Care Watch Dial Maker Name | Role | Phone | [...] Proliferative | | 2008 | Visit | [place] | | Diabetic Retinopathy | | | | Photography at | | ([facility]) | | | | [facility] [address] | | | | | | [address] | | | | | | Eye [place], [facility] | | | | | | floor [place], [place] | | | | | | [address] | | | +--------+---------+ + + + [...] Rogers was seen in the [facility] [place] Phot ography/Ultrasound Department today, 09/15/2008, for fluorescein, fundus photography and OCT OD. [facility]W [facility] Plan of Treatment +--------+---------+ + + + | Date | Type | Specialty | Care Team | Description | +--------+---------+ + + + | 01/26/ | Office | Ophthalmology | Maria Elena Lieberman, | | | 2019 | Visit | | [address] | | | | | | [address] | | | | | | [place], [place] | | | | | | [address] | | | | | | [phone] | | | | | | | | +--------+---------+ + + + documented as of this encounter Visit Diagnoses + + | Diagnosis | + + | Proliferative diabetic retinopathy(362.02) Proliferative diabetic retinopathy | + + documented in this encounter"
--- OUTSIDE RECORDS SUMMARY | ~2019-10-28 | XMS | Encounter Summary ---
Demographics + + + | Address | [address] | | | [place] [address] | + + + | Home Phone | | + + + | Preferred Language | Unknown | + + + | Marital Status | Single | + + + | Mu-Ism Affiliation | CHR | + + + | Race | White | + + + | Ethnic Group | Not or | + + + Author + + + | Author | [facility] | + + + | Organization | [facility] | + + + | Address | Unknown | + + + | Phone | Unavailable | + + + Support + + + + + | Name | Relationship | Address | Phone | + + + + + | Krissy Rogers | BRADEN | [place] [address] | | + + + + + | Bay Rogers | ECON | Unknown | | + + + + + Care Team Providers + +------+ + | Care Governor Assembler Hydraulic Name | Role | Phone | + [...] Retinal | | 2008 | Visit | [facility] at | [address] | Detachment; DM Eye | | | | [facility] [address] | [address] | Manif Type II, | | | | [address] | [place], [place] | Uncontrolled ([facility]); | | | | Eye [place], [facility] | [address] | Vision, Loss, | | | | floor [facility] [place] | [phone] | Sudden; | | | | [address] | | Proliferative | | | | | | Diabetic Retinopathy | | | | | | ([facility]) | +--------+---------+ + + + [...] Mustapha Abarca MD is Dr. Currie in [place] - will fax records I called Dr. [...] Manzano | | | | | | [place], [place] | | | | | | [address] | | | | | | [phone] | | | | | | | | +--------+---------+ + + + documented as of this encounter Visit Diagnoses + + | Diagnosis | + + | Unspecified retinal detachment | + + | Type II or unspecified type diabetes mellitus with ophthalmic manifestations, | | uncontrolled(250.52) ([facility]) Type II or unspecified type diabetes mellitus with | | ophthalmic manifestations, uncontrolled | + + | Vision, loss, sudden Sudden visual loss | + + | Proliferative diabetic retinopathy(362.02) Proliferative diabetic retinopathy | + + documented in this encounter"
--- OUTSIDE RECORDS SUMMARY | ~2019-10-28 | XMS | Encounter Summary ---
Demographics + + + | Address | [address] | | | [place] [address] | + + + | Home Phone [...] + + + | Author | [facility] | + + + | Organization | [facility] | + + + | Address | Unknown | + + + | Phone | Unavailable | + + + Support + + + + + | Name | Relationship | Address | Phone | + + + + + | Krissy Rogers | BRADEN | [place] [address] | | + + + + + | Bay Rogers | ECON | Unknown | | + + + + + Care Team Providers + +------+ + | Care Ichthyologist Name | Role | Phone | + [...] Proliferative | | 2009 | Visit | [place] | | Diabetic Retinopathy | | | | Photography at | | ([facility]) (Primary Dx) | | | | [facility] [address] | | | | | | [address] | | | | | | Eye [place], [address]th | | | | | | floor [place], [place] | | | | | | [address] | | | +--------+---------+ + + + [...] Rogers was seen in the [facility] [place] [facility] hotography/Ultrasound Department today, 12/01/2008, for biometry [...] Manzano | | | | | | [place], [place] | | | | | | [address] | | | | | | [phone] | | | | | | | | +--------+---------+ + + + documented as of this encounter Visit Diagnoses + + | Diagnosis | + + | Proliferative diabetic retinopathy(362.02) - Primary Proliferative diabetic | | retinopathy | + + documented in this encounter"
--- OUTSIDE RECORDS SUMMARY | ~2019-10-28 | XMS | Encounter Summary ---
Demographics + + + | Address | [address] | | | [place] [address] | + + + | Home Phone [...] Krissy Rogers | BRADEN | [place] [address] | | + + + + + | Bay Rogers | ECON | Unknown | | + + + + + Care Team Providers + +------+ + | Care Medicine Teacher Name | Role | Phone | + +------+ + | Jono Arambula | PCP | | + +------+ + Reason for Visit +---------+ + | Reason | Comments | +---------+ + | Post Op | | +---------+ + Encounter Details +--------+---------+ + + + | Date | Type | Department | Care Team | Description | +--------+---------+ + + + | 12/08/ | Office | [facility] | Maria Elena Lieberman, | DM Eye Manif Type | | 2008 | Visit | [facility] at | [address] | II, Uncontrolled | | | | [facility] [address] | ([facility]) (Primary Dx); | | | | [address] | [place], [place] | Unspecified Retinal | | | | [facility] [place], [facility] | [address] | Detachment; | | | | floor [place], [place] | [phone] | Proliferative | | | | [address] | | Diabetic Retinopathy | | | | | | ([facility]) | +--------+---------+ + + + Social [...] Progress Notes Maria Elena Lieberman MD - 12/08/2008 10:28 AM PDTFormatting of this note might be different f rom the original. Retina Division Progress Note: Post OP Note CC: Postop visit HPI: Wilson Rogers is a 38 y.o. male status post PPV/PPL/EL/SF6 OS on 12/02/2008 Pt complains of level 2 pain that is alleviated with Vicodin (last taken 2 days ago). BS: 80's - low 100"s Eye Meds: 12/09/08 Prednisolone 4x LE Ofloxacin 4x LE Atropine 2x LE Vicodin for pain - last taken 2 days ago Promethazine prn for nausea Referring Provider: David ANGUIANO: See specialty comments Allergies: Penicillins and Lisinopril Meds: No interval changes in systemic medications Examination: 12/03/2008 [facility] IOP 2:01 PM Left Eye LPO NT NI 11 12/08/2008 [facility] IOP 10:33 AM Left Eye LPO with projection 11 Alert and oriented times 4. Left eye dilated only with Mydriacyl and Neosynephrine @ 10:33 AM by Rekha Robles Chart Notes Reviewed SLE OS Lids Appropriate edema Conjunctiva Well closed Cornea Clear AC Deep and quiet Iris dilated Lens Aphakic Ophthalmoscopy of the left eye disclosed retina that is flat all over. Former and new retin ectomy edges appear flat. View somewhat limited today 2/2 gas/pt comfort. IMPRESSION: Post op status post PPV/PPL/retinectomy/EL/gas OS on 12/02/2008 PLAN: Stop Ofloxacin OS Atropine 1% OS bid Prednisolone OS qid No lifting, bending or straining x 2 weeks. Pain medicines as needed. Relevant information regarding altitude, nitrous oxide as it relates to intraocular gas dis cussed. Call immediately for increased pain, decreased vision. 24 hour contact information given. Positioning: face down, left side down or right side down at night only upright during the day Return to clinic in 2 weeks Maria Elena Lieberman MD documented in this [...] [place] | | | | | | [address] | | | | | | [phone] | | | | | | | | +--------+---------+ + + + documented as of this encounter Visit Diagnoses + + | Diagnosis | + + | Type II or unspecified type diabetes mellitus with ophthalmic manifestations, | | uncontrolled(250.52) ([facility]) - Primary Type II or unspecified type diabetes mellitus with | | ophthalmic manifestations, uncontrolled | + + | Unspecified retinal detachment | + + | Proliferative diabetic retinopathy(362.02) Proliferative diabetic retinopathy | + + documented in this encounter
--- OUTSIDE RECORDS SUMMARY | ~2019-10-28 | XMS | Encounter Summary ---
Demographics + + + | Address | [address] | | | [place] [address] | + + + | Home Phone | | + + + | Preferred Language | Unknown | + + + | Marital Status | Single | + + + | Anglican Affiliation | CHR | + + + [...] Krissy Rogers | BRADEN | [place] [address] | | + + + + + | Bay Rogers | ECON | Unknown | | + + + + + Care Team Providers + +------+ + | Care Epic Cupid Analyst Name | Role | Phone | [...] | | | | | Moraima Hernandez [place], | | | | | | [place] [address] | | | +--------+ + + + [...] | | 2019 | Visit | | [address] | | | | | | [address] | | | | | | [place], [place] | | | | | | [address] | | | | | | [phone] | | | | | | | [...] + | [facility] - | [address] | [place] [address] | | | IMMUNOGENETICS/TRANS | [address] | | | | [facility] | | | | + + + + + documented in this encounter Visit Diagnoses Not on filedocumented in this encounter"
--- OUTSIDE RECORDS SUMMARY | ~2019-10-28 | XMS | Encounter Summary ---
Demographics + + + | Address | [address] | | | [place] [address] | + + + | Home Phone | | + + + | Preferred Language | Unknown | + + + | Marital Status | | + + + | Orthodoxy Affiliation | 1013 | + + + [...] [address] | | | | | [address] | | + + + + + | Ellen Rogers | ECON | [address] | | | | | [place] | | + + + + + | Gisell Rogers | ECON | Unknown | | + + + + + Care Team Providers + +------+ + | Care Net Programmer Name | Role | Phone | + +------+ + | Lizebt Sellers MD | PCP | | + +------+ + Encounter Details +--------+ + + + + | Date | Type | Department | Care Team | Description | +--------+ + + + + | 02/11/ | Orders Only | [facility] | Jaren Pelayo MD | | | 2018 | | NEPHROLOGY [place] | [address] [place] | | | | | [address] [place] | [address] [place], [place] | | | | | [address] [place], [place] | [id number] | | | | | [address] | | | | | | [phone] | | | +--------+ + + + [...] [place] | | | | | | [address] | | | | | | | | +--------+---------+ + + + documented as of this encounter Procedures + +--------+ + + + | Procedure Name | Priori | Date/Time | Associated Diagnosis | Comments | | | ty | | | | + +--------+ + + + | EXTERNAL LAB: | Routin | 02/11/2018 | | Results for this | | TACROLIMUS LEVEL, | e | 12:00 AM | | procedure are in the | | LC-MS/MS | | PDT | | results section. | + +--------+ + + + documented in this encounter Results External Lab: Tacrolimus Level, LC-MS/MS (02/11/2018 12:00 AM PDT) + +-------+ + + + | Component | Value | Ref Range | Performed | Pathologist | | | | | At | Signature | + +-------+ + + + | Tacrolimus | 4.7 | | EXTERNAL | | | Level [...]
--- OUTSIDE RECORDS SUMMARY | ~2019-10-28 | XMS | Encounter Summary ---
Demographics + + + | Address | [address] | | | [place] [address] | + + + | Home Phone [...] Krissy Rogers | BRADEN | [place] [address] | | + + + + + | Bay Rogers | ECON | Unknown | | + + + + + Care Team Providers + +------+ + | Care Product Operations Associate Name | Role | Phone | + +------+ + | Berna Keyse MD | PCP | | + +------+ [...] Proliferative | | 2009 | Visit | [facility] at | [address] | Diabetic Retinopathy | | | | [address] | [address] | ([facility]); Unspecified | | | | [address] | [place], [place] | Retinal Detachment; | | | | Eye [facility], [facility] | [address] | DM Eye Manif Type | | | | floor [place], [place] | [phone] | II, Uncontrolled | | | | [address] | | ([facility]) | +--------+---------+ + + + Social [...] him sick. Referring Provid er: Dr. Akers [facility]: PPV,MP,EL,SO OS 09/17/08 Combined traction/rhegmatogenous retinal detachment [...] clinic in 1 week. MRI today in [place] Myron Meehan MD, Fellow, Retina Service, [facility], 09/17/2008 Maria Elena Lieberman MD I am [...] [address] | | | | | | [place], [place] | | | | | | [address] | | | | | | [phone] | | | | | | | | +--------+---------+ + + + documented as of this encounter Visit Diagnoses + + | Diagnosis | + + | Proliferative diabetic retinopathy(362.02) Proliferative diabetic retinopathy | + + | Unspecified retinal detachment | + + | Type II or unspecified type diabetes mellitus with ophthalmic manifestations, | | uncontrolled(250.52) ([facility]) Type II or unspecified type diabetes mellitus with | | ophthalmic manifestations, uncontrolled | + + documented in this encounter"
--- OUTSIDE RECORDS SUMMARY | ~2019-10-28 | XMS | Clinical Summary ---
Demographics + + + | Address | [address] | | | [place] [address] | + + + | Home Phone [...] Author + + + | Author | [facility] | + + + | Organization | [facility] | + + + | Address | Unknown | + + + | Phone | Unavailable | + + + Support + + + + + | Name | Relationship | Address | Phone | + + + + + | Krissy Rogers | ECON | [place] [address] | | + + + + + | Bay Rogers | ECON | Unknown | | + + + + + Care Team Providers + +------+ + | Care Tafe Registrar Name | Role | Phone | + +------+ + | Bola Chaudhry MD | PCP | | + +------+ + Source Comments CRYSTAL is fully live on both EpicCare Ambulatory and EpicCare InPatient.[facility] Allergies + + + + + + | Active Allergy | Reactions | Severity | Noted | Comments | | | | | Date | | + + + + + + | Olmesartan Medoxomil | Unknown | | 01/20/20 | | | | | | 16 | | + + + + + + | Hydromorphone | Rash | | 01/21/20 | | | | | | 13 | | + + + + + + | Lisinopril | Cough | | 09/16/19 | | | | | | 09 | | + + + + + + | Megestrol | Unknown | | 01/21/20 | Steve in blood | | | | | 13 | glucose per pt | + + + + + + | Morphine | Unknown | | 01/20/20 | | | | | | 16 | | + + + + + + | Penicillins | Rash | | 09/16/19 | | | | | | 09 | | + + + + + + | Metoclopramide Hcl | Rigors | | 01/21/20 | | | | | | 13 | | + + + + + + Medications + + + +---------+------+------+-------+ | Medication | Sig | Dispensed | Refills | Star | End | Statu | | | | | | t | Date | s | | | | | | Date | | | + + + +---------+------+------+-------+ | Insulin Glargine | Inject 35 Units | | 0 | | | Activ | | (LANTUS SOLOSTAR) | under the skin | | | | | e | | 300 unit/3 mL | (SUBC) once daily at | | | | | | | Subcutaneous Insulin | bedtime. | | | | | | | Pen | | | | | | | + + + +---------+------+------+-------+ | LEVOTHYROXINE ORAL | Take 150 mcg by | | 0 | | | Activ | | | mouth once daily. | | | | | e | + + + +---------+------+------+-------+ | NOVOLOG SUBQ | Inject under the | | 0 | | | Activ | | | skin (SUBC). | | | | | e | | | Sliding scale with | | | | | | | | dinner | | | | | | + + + +---------+------+------+-------+ | Cholecalciferol, | Take 5,000 Units by | | 0 | | | Activ | | Vitamin D3, 3,000 | mouth. Take 1 | | | | | e | | unit Oral tablet | capsule by mouth | | | | | | | | Daily. | | | | | | + + + +---------+------+------+-------+ | cinacalcet 30 mg | Take by mouth. Take | | 0 | 07/1 | | Activ | | Oral tablet | 60 mg by mouth | | | 2/20 | | e | | | Daily 1800. | | | 13 | | | + + + +---------+------+------+-------+ | losartan 50 mg | Take 25 mg by mouth. | | 0 | 09/1 | | Activ | | Oral tablet | Take 1 tablet by | | | 6/20 | | e | | | mouth 3 Times Daily. | | | 13 | | | + + + +---------+------+------+-------+ | metoprolol | Take by mouth. Take | | 0 | 09/1 | | Activ | | tartrate 50 mg Oral | 2 tablets by mouth | | | 6/20 | | e | | tablet | 2 Times Daily. | | | 13 | | | | | Indications: take | | | | | | | | 50mg in morning and | | | | | | | | 100mg at night | | | | | | + + + +---------+------+------+-------+ | mycophenolate 250 | Take by mouth. Take | | 0 | 06/2 | | Activ | | mg Oral capsule | 3 capsules by mouth | | | 4/20 | | e | | | 2 Times Daily. | | | 13 | | | + + + +---------+------+------+-------+ | omeprazole 20 mg | Take by mouth. Take | | 0 | 08/2 | | Activ | | Oral capsule,delayed | 1 capsule by mouth | | | 9/20 | | e | | release(DR/EC) | Daily. | | | 13 | | | + + + +---------+------+------+-------+ | tacrolimus 1 mg | Take by mouth. Take | | 0 | 06/2 | | Activ | | Oral capsule | 1-2 capsules by | | | 6/20 | | e | | | mouth 2 Times Daily. | | | 13 | | | | | Take 1mg in the | | | | | | | | morning and 2mg in | | | | | | | | the evening. | | | | | | + + + +---------+------+------+-------+ | aspirin EC 81 mg | Take by mouth. Take | | 0 | | | Activ | | Oral tablet,delayed | 81 mg by mouth | | | | | e | | release (DR/EC) | Daily. | | | | | | + + + +---------+------+------+-------+ | clopidogrel 75 mg | Take by mouth. Take | | 0 | 08/1 | | Activ | | Oral tablet | 1 tablet by mouth | | | 4/20 | | e | | | Daily. | | | 13 | | | + + + +---------+------+------+-------+ | | Take by mouth. | | 0 | | | Activ | | hydrochlorothiazide | | | | | | e | | 12.5 mg oral tablet | | | | | | | + + + +---------+------+------+-------+ | gabapentin 300 mg | Take by mouth. | | 0 | | | Activ | | oral capsule | | | | | | e | + + + +---------+------+------+-------+ | magnesium chloride | Take 128 mg by mouth | | 0 | | | Activ | | SR 64 mg oral | three times daily. | | | | | e | | tablet,delayed | | | | | | | | release (DR/EC) | | | | | | | + + + +---------+------+------+-------+ | atorvastatin 40 mg | Take 40 mg by mouth | | 0 | | | Activ | | oral tablet | once daily. | | | | | e | + + + +---------+------+------+-------+ | torsemide 5 mg | Take 5 mg by mouth | | 0 | | | Activ | | oral tablet | once daily. | | | | | e | + + + +---------+------+------+-------+ | ZOLEDRONIC | Inject into the vein | | 0 | | | Activ | | [id number] | (IV). | | | | | e | | IV | | | | | | | + + + +---------+------+------+-------+ Active Problems + + + | Problem | Noted Date | + + + | Pseudophakia, both eyes | 01/28/2018 | + + + + + | Last Assessment & Plan: Sulcus IOL OS good position, post YAG | | OD last year - stable Has seen Dr. 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 | 01/29/2017 | | edema associated with type 2 diabetes mellitus | | + + + + + | Last Assessment & Plan: s/p PPV/PPL/retinectomy/EL/gas OS on | | 12/02/2008 doing well from eye stand point -retina stable and | | attached | + + + + + | Kidney replaced by transplant | 01/20/2013 | + + + | Encounter for long-term (current) use of medications | 01/20/2013 | + + + + + | Overview: ICD10 | + + + + + | Polycythemia, secondary | 01/20/2013 | + + + | Type II or unspecified type diabetes mellitus with ophthalmic | 09/17/2008 | | manifestations, uncontrolled(250.52) | | + + + | Vision, loss, sudden | 09/15/2008 | + + + + + | Last Assessment & Plan: Vision loss 2008 most likely due | | to severe hypoperfusion during dialysis - had brain MRI and | | findings and exam reviewed in the past with Dr. Roman - stable | | without recovery but no further decline - vision better post YAG | | last year per patient - stable | + + Resolved Problems + + + + | Problem | Noted | Resolved | | | Date | Date | + + + + | Retinal detachment | 09/18/19 | | | | 09 | 8 | + + + + + + | Overview: ICD10 | + + + + + + | Proliferative diabetic retinopathy | 09/16/19 | | | | 09 | 8 | + + + + + + | Overview: ICD10 | + + Family History + + +------+ + | Medical History | Relation | Name | Comments | + + +------+ + | Additional Family | Mother | | | | History | | | | + + +------+ + + +------+--------+ + | Relation | Name | Status | Comments | + +------+--------+ + | Mother | | | | + +------+--------+ + Social History + +-------+ +--------+ + [...] recent travel history available. | + + Last Filed Vital Signs + [...] | | 2020 | Visit | | [address] | | | | | | [address] | | | | | | [place], [place] | | | | | | [address] | | | | | | [phone] | | | | | | | | +--------+---------+ + + + + + + + + | Health Maintenance | Due Date | Last Done | Comments | + + + + + | Pneumococcal | | 03/16/2014 | | | vaccination (2 of 3 | 5 | | | | - PCV13) | | | | + + + + + | Influenza (Flu) | | 01/28/2018, 01/08/2017, | | | vaccination (#1) | 9 | 01/03/2016, Additional history | | | | | exists | | + + + + + Results Not on filefrom Last 3 Months Insurance + +--------+ +--------+ + +--------+ | Payer | Benefi | Subscriber | Effect | Phone | Address | Type | | | t Plan | ID | roshan | | | | | | / | | Dates | | | | | | Group | | | | | | + +--------+ +--------+ + +--------+ | MEDICARE | MEDICA | xxxxxxxxxxx | 11/22/19 | [phone] | [address] | Medica | | | RE A & | | 09-Pre | [phone] | | | B | | sent | | [place], [place] | | | | | | | | [address] | | + +--------+ +--------+ + +--------+ | PROSPECTING OBSERVER MEDICAID | PROSPECTING OBSERVER | xxxxxxxx | 04/23/19 | | | Medica | | | [place] | | 16-Pre | | | id | | | [place] | | sent | | | | + +--------+ +--------+ + +--------+ + +--------+ +--------+ + + | Guarantor Name | Accoun | Relation to | Date | Phone | Billing Address | | | t Type | Patient | of | | | | | | | | | | + +--------+ +--------+ + + | SueAniWilson | Person | Self | [birth year] | [address] | | | al/Fam | | 1971 | [phone] | [place] [address] | | | audra | | | 2 (Home) | | + +--------+ +--------+ + + Advance Directives + + + + + | Type | Date Recorded | Patient | Explanation | | | | Assistant Manager Pt | | + + + + + | Advance | | | | | Directives and | | | | | Living Will | | | | + + + + + | Power of | | | | | [place] Ordinary | | | | + + + + +"
--- OUTSIDE RECORDS SUMMARY | ~2019-10-28 | XMS | Encounter Summary ---
Demographics + + + | Address | [address] | | | [place] [address] | + + + | Home Phone | | + + + | Preferred Language | Unknown | + + + | Marital Status | | + + + | Adventism Affiliation | 1013 | + + + | Race | Unknown | + + + | Ethnic Group | Unknown | + + + Author + + + | Author | [facility] | | | and [place] | + + + | Organization | [facility] | | | and [place] | + + + | Address | Unknown | + + + | Phone | Unavailable | + + + Support + + + + + | Name | Relationship | Address | Phone | + + + + + | Deysi Montelongo | ECON | [address] | | | | | [facility] [place] [place] | | | | | [address] | | + + + + + | Ellen Rogers | ECON | [address] | | | | | [place] | | + + + + + | Gisell Rogers | ECON | Unknown | | + + + + + Care Team Providers + +------+ + | Care Guard Manager Name | Role | Phone | + +------+ + | David Estrada MD | PCP | Unavailable | + +------+ + Encounter Details +--------+ + + + + | Date | Type | Department | Care Team | Description | +--------+ + + + + | 07/18/ | Abstract | [facility] | [facility], | | | 2012 | | GASTROENTEROLOGY | [address] | | | | | [address] [place] | [address] | | | | | [address] [place], [place] | [place], [place] | | | | | [address] | [address] | | | | | [phone] | | | +--------+ + + + [...] 2020 | Visit | | [address] | | | | | | [address] [facility] [place] | | | | | | [address] | | | | | | | | +--------+---------+ + + + documented as of this encounter Visit Diagnoses Not on filedocumented in this encounter"
--- OUTSIDE RECORDS SUMMARY | ~2019-10-28 | XMS | Encounter Summary ---
Demographics + + + | Address | [address] | | | [place] [address] | + + + | Home Phone [...] + + | Author | [facility] | | | and [place] | + + + | Organization | [facility] | | | and [place] | + + + | Address | Unknown | + + + | Phone | Unavailable | + + + Support + + + + + | Name | Relationship | Address | Phone | + + + + + | Deysi Montelongo | ECON | [address] | | | | | [facility] [place] | | | | | [address] | | + + + + + | Ellen Rogers | ECON | [address] | | | | | [place] | | + + + + + | Gisell Rogers | ECON | Unknown | | + + + + + Care Team Providers + +------+ + | Care Wax Cutter Name | Role | Phone | + +------+ + | Fatuma Agee NP | PCP | | + +------+ + Reason for Visit + +--------+ + | Reason | Onset | Comments | | | Date | | + +--------+ + | Swelling | 10/27/ | Send to ER | | | 2019 | | + +--------+ + Encounter Details +--------+ + + + + | Date | Type | Department | Care Team | Description | +--------+ + + + + | 10/27/ | Telephone | [facility] | Wandy Lorenzana | Swelling (Send to | | 2019 | | NEPRHOLOGY CESAR Abarca RN | ER) | | | | [address] | | | | | | [address] [place] | | | | | | [address] | | | | | | [phone] | | | +--------+ + + + [...] this encounter Miscellaneous Notes Telephone Encounter - Salomón Wandy MEGHNA Abarca - 10/28/2019 2:33 PM PDTReceived message from patient's caregiver reporting she has questions on his Torsemide. She reports that he has s ignificant pitting edema on his left leg (left greater than right). She also reports he saw his PCP yesterday. Called PCP's office and received note from yesterday which states "retain ing fluid in the lower leg, more on the left than the right. On Torsemide at 10mg per Dr Mukund mayo". Per Dr Pelayo, check if he is on an anticoagulant like Warfarin or Eliquis; if not he sh ould go to ER [facility] to rule out DVT. Returned call to his caregiver, no answer. Left message asking her to call office back. Called Wilson and relayed message to him. He stated understanding and will have [facility]'s send report to Dr Pelayo. Follow up appointment scheduled in December as he has not been see n since January 2019. Appointment letter placed in mail. He would like to see Dr Pelayo after he sees the transplant team at the end of October. No further questions at this time. Raf izaguirre signed by Wandy Lroenzana RN at 10/28/2019 2:50 PM PDTdocumented in this encounte r Plan of Treatment +--------+---------+ + + + | Date | Type | Specialty | Care Team | Description | +--------+---------+ + + + | 01/04/ | Office | Nephrology | Jaren Pelayo MD | | 2019 | Visit | | [address] [facility] | | | | | | [address] [place] | | | | | | [address] | | | | | | | | +--------+---------+ + + + documented as of this encounter Visit Diagnoses Not on filedocumented in this encounter
--- OUTSIDE RECORDS SUMMARY | ~2019-10-28 | XMS | Encounter Summary ---
Demographics + + + | Address | [address] | | | [place] [address] | + + + | Home Phone [...] [address] | | | | | [address] | | + + + + + | Ellen Rogers | ECON | [address] | | | | | [place] | | + + + + + | Gisell Rogers | ECON | Unknown | | + + + + + Care Team Providers + +------+ + | Care Cigar Head Pegger Name | Role | Phone | + +------+ + | Lizbet Sellers MD | PCP | | + +------+ + Encounter Details +--------+ + + + + | Date | Type | Department | Care Team | Description | +--------+ + + + + | 01/03/ | Orders Only | [facility] | Conversion | | | 2017 | | NEPHROLOGY [place] | Transaction, | | | | | [address] [facility] | Provider Unknown | | | | | [address] [place], [place] | | | | | | [address] | (Fax) | | | | | [phone] | | | +--------+ + + + [...] | | | | | | [address] [facility] [place] | | | | | | [address] | | | | | | | | +--------+---------+ + + + documented as of this encounter Procedures + +--------+ + + + | Procedure Name | Priori | Date/Time | Associated Diagnosis | Comments | | | ty | | | | + +--------+ + + + | EXTERNAL LAB: | Routin | 01/03/2017 | | Results for this | | TACROLIMUS LEVEL, | e | 9:55 AM | | procedure are in the | | LC-MS/MS | | PDT | | results section. | + +--------+ + + + | TSH | Routin | 01/03/2017 | | Results for this | | | e | 9:55 AM | | procedure are in the | | | | PDT | | results section. | + +--------+ + + + | T4, FREE | Routin | 01/03/2017 | | Results for this | | | e | 9:55 AM | | procedure are in the | | | | PDT | | results section. | + +--------+ + + + | HEMOGLOBIN A1C | Routin | 01/03/2017 | | Results for this | | | e | 9:55 AM | | procedure are in the | | | | PDT | | results section. | + +--------+ + + + | COMPREHENSIVE | Routin | 01/03/2017 | | Results for this | | METABOLIC PANEL | e | 9:55 AM | | procedure are in the | | | | PDT | | results section. | + +--------+ + + + documented in this encounter Results External Lab: Tacrolimus Level, LC-MS/MS (01/03/2017 9:55 AM PDT) + +-------+ + + + | Component | Value | Ref Range | Performed | Pathologist | | | | | At | Signature | + +-------+ + + + | Tacrolimus | 5.7 | | EXTERNAL | | | Level [...] | | | + +---------+ + + TSH (01/03/2017 9:55 AM PDT) + + + + + + | Component | Value | Ref Range | Performed | Pathologist | | | | | At | Signature | + + + + + + | TSH | 0.071 (A) | 0.270 - 4.20 | EXTERNAL | | | | | uIU/mL | LAB | | + + + + + + + + | Specimen | + + | Blood specimen | | (specimen) | + + + +---------+ + + | Performing | Address | City/State/Zipcode | Phone Number | | Organization | | | | + +---------+ + + | EXTERNAL LAB | | | | + +---------+ + + T4, Free (01/03/2017 9:55 AM PDT) + + + + + + | Component | Value | Ref Range | Performed | Pathologist | | | | | At | Signature | + + + + + + | FREE T4 | 2.05 (A) | 0.71 - 1.7 | EXTERNAL [...] | | + +---------+ + + Hemoglobin A1C (01/03/2017 9:55 AM PDT) + +-------+ + + + | Component | Value | Ref Range | Performed | Pathologist | | | | | At | Signature | + +-------+ + + + | Hemoglobin | 8.8 | % | EXTERNAL | | | A1c | | | LAB | | + [...] + +---------+ + + Comprehensive Metabolic Panel (01/03/2017 9:55 AM PDT) + +---------+ + + + | Component | Value | Ref Range | Performed | Pathologist | | | | | At | Signature | + +---------+ + + + | Glucose, | 222 (A) | 70 - 100 mg/dL | EXTERNAL | | | Fasting | | | LAB | | + +---------+ + + + | BUN | 23 | 6 - 23 mg/dL | EXTERNAL | | | | | | LAB | | + +---------+ + + + | Creatinine | 1.09 | 0.60 - 1.35 | EXTERNAL | | | | | mg/dL | LAB | | + +---------+ + + + | BUN/Creatin | 21.1 | 6.0 - 28.6 | EXTERNAL | | | ine Ratio | | | LAB | | + +---------+ + + + | Calcium | 9.3 | 8.4 - 10.2 | EXTERNAL | | | | | mg/dL | LAB | | + +---------+ + + + | Protein, | 6.4 | 6.0 - 8.0 g/dL | EXTERNAL | | | Total | | | LAB | | + +---------+ + + + | Albumin | 3.7 | 3.5 - 5.0 | EXTERNAL | | | | | | LAB | | + +---------+ + + + | Globulin | 2.7 | 1.8 - 3.5 | EXTERNAL | | | | | | LAB | | + +---------+ + + + | A/G Ratio | 1.4 | 1.1 - 2.4 | EXTERNAL | | | | | | LAB | | + +---------+ + + + | Bilirubin | 1.1 | 0.0 - 1.2 mg/dL | EXTERNAL | | | Total | | | LAB | | + +---------+ + + + | ALP, | 88 | 31 - 120 | EXTERNAL | | | External | | | LAB | | + +---------+ + + + | ALT | 25 | 7 - 52 U/L | EXTERNAL | | | | | | LAB | | + +---------+ + + + | AST | 21 | 13 - 39 U/L | EXTERNAL [...] + + + | Anion Gap | 16.0 | 7 - 21 mmol/L | EXTERNAL | | | | | | LAB | | + +---------+ + + + | Estimated | 73 | mg/dL | EXTERNAL | | | [...]
--- OUTSIDE RECORDS SUMMARY | ~2019-10-28 | XMS | Clinical Summary ---
Demographics + + + | Address | [address] | | | [place] [address] | + + + | Home Phone [...] Krissy Rogers | ECON | [place] [address] | | + + + + + | Bay Rogers | ECON | Unknown | | + + + + + Care Team Providers + +------+ + | Care Mophead Sewer Name | Role | Phone | + +------+ + | Bola Chaudhry MD | PCP | | + +------+ + Source Comments CRYSTAL is fully live on both EpicCare Ambulatory and EpicCare InPatient.[facility] Allergies + + + + + + [...] 0 | | | Activ | | [id number] | (IV). | | | | | [...] | | 2020 | Visit | | [address] | | | | | | [address] | | | | | | [place], [place] | | | | | | [address] | | | | | | [phone] | | | | | | | [...] | B | | sent | | [place], [place] | | | | | | | | [address] | | + +--------+ +--------+ + +--------+ | AIRPLANE ENGINEER MEDICAID | AIRPLANE ENGINEER | xxxxxxxx | 04/23/19 | | | [...] | | 1971 | [phone] | [place] [address] | | | audra | | | 2 (Home) | | + +--------+ +--------+ + + Advance Directives + + + + + | Type | Date Recorded | Patient | Explanation | | | | Analog Ic Design Engineer | | + + + + + | Advance | | | | | Directives and | | | | | Living Will | | | | + + + + + | Power of | | | | | Underwriting Director | | | | + + + + +"
--- OUTSIDE RECORDS SUMMARY | ~2019-10-28 | XMS | Encounter Summary ---
Demographics + + + | Address | [address] | | | [place] [address] | + + + | Home Phone | | + + + | Preferred Language | Unknown | + + + | Marital Status | Single | + + + | Presybeterian Affiliation | CHR | + + + [...] Krissy Rogers | BRADEN | [place] [address] | | + + + + + | Bay Rogers | ECON | Unknown | | + + + + + Care Team Providers + +------+ + | Care Service Developer Name | Role | Phone | [...] Type | | 2008 | Visit | [facility] | [address] | II, Uncontrolled | | | | [facility] [address] | [address] | ([facility]); Proliferative | | | | [address] | [place], [place] | Diabetic | | | | [facility], [facility] | [address] | Retinopathy ([facility]) | | | | floor [place], [place] | [phone] | | | | | [address] | [...] weeks Sami Celis MD, PhD, Vitreoretinal Fellow, [facility], 10/22/2008 Maria Elena Lieberman MD I am [...] remove the CL. Maria Elena Lieberman MD Bit Setter [facility]. documented in this encounter Plan of Treatment +--------+---------+ + + + | Date | Type | Specialty | Care Team | Description | +--------+---------+ + + + | 01/26/ | Office | Ophthalmology | Maria Elena Lieberman, | | | 2019 | Visit | | [address] | | | | | [address] | | | | | | [place], [place] | | | | | | [address] | | | | | | [phone] | | | | | | | | +--------+---------+ + + + documented as of this encounter Visit Diagnoses + + | Diagnosis | + + | Type II or unspecified type diabetes mellitus with ophthalmic manifestations, | | uncontrolled(250.52) ([facility]) Type II or unspecified type diabetes mellitus with | | ophthalmic manifestations, uncontrolled | + + | Proliferative diabetic retinopathy(362.02) Proliferative diabetic retinopathy | + + documented in this encounter"
--- OUTSIDE RECORDS SUMMARY | ~2019-10-28 | XMS | Encounter Summary ---
Demographics + + + | Address | [address] | | | [place] [address] | + + + | Home Phone | | + + + | Preferred Language | Unknown | + + + | Marital Status | | + + + | Taoist Affiliation | 1013 | + + + [...] [address] | | | | | [address] | | + + + + + | Ellen Rogers | ECON | [address] | | | | | [place] | | + + + + + | Gisell Rogers | ECON | Unknown | | + + + + + Care Team Providers + +------+ + | Care Vocational Examiner Name | Role | Phone | + +------+ + | Lizbet Sellers MD | PCP | | + +------+ + Encounter Details +--------+ + + + + | Date | Type | Department | Care Team | Description | +--------+ + + + + | 05/21/ | Orders Only | [facility] | Jaren Pelayo MD | | | 2014 | | NEPRHOLOGY [place] | [address] | | | | | [address] | [address] [place], [place] | | | | | [address] [place], [place] | [address] | | | | | [address] | | | | | | [phone] | | | +--------+ + + + [...] 2020 | Visit | | [address] [facility] | | | | | | [address] [place] | | | | | | [address] | | | | | | | | +--------+---------+ + + + documented as of this encounter Procedures + +--------+ + + + | Procedure Name | Priori | Date/Time | Associated Diagnosis | Comments | | | ty | | | | + +--------+ + + + | EXTERNAL LAB: | Routin | 05/21/2014 | | Results for this | | TACROLIMUS LEVEL, | e | 12:00 AM | | procedure are in the | | LC-MS/MS | | PST | | results section. | + +--------+ + + + | EXTERNAL LAB: CBC | Routin | 05/21/2014 | | Results for this | | | e | 12:00 AM | | procedure are in the | | | | PST | | results section. | + +--------+ + + + | URINALYSIS WITH | Routin | 05/21/2014 | | Results for this | | MICROSCOPIC WITH | e | 12:00 AM | | procedure are in the | | CULTURE IF INDICATED | | PST | | results section. | + +--------+ + + + | LIPID PANEL | Routin | 05/21/2014 | | Results for this | | | e | 12:00 AM | | procedure are in the | | | | PST | | results section. | + +--------+ + + + | ALT | Routin | 05/21/2014 | | Results for this | | | e | 12:00 AM | | procedure are in the | | | | PST | | results section. | + +--------+ + + + | VITAMIN D, | Routin | 05/21/2014 | | Results for this | | DEFICIENCY SCREEN | e | 12:00 AM | | procedure are in the | | (25-HYDROXY) | | PST | | results section. | + +--------+ + + + | PARATHYROID HORMONE, | Routin | 05/21/2014 | | Results for this | | INTACT AND CALCIUM | e | 12:00 AM | | procedure are in the | | | | PST | | results section. | + +--------+ + + + | PROTEIN/CREATININE | Routin | 05/21/2014 | | Results for this | | RATIO, URINE | e | 12:00 AM | | procedure are in the | | | | PST | | results section. | + +--------+ + + + | PROTEIN, URINE, | Routin | 05/21/2014 | | Results for this | | RANDOM | e | 12:00 AM | | procedure are in the | | | | PST | | results section. | + +--------+ + + + | CREATININE, URINE, | Routin | 05/21/2014 | | Results for this | | RANDOM | e | 12:00 AM | | procedure are in the | | | | PST | | results section. | + +--------+ + + + | AST | Routin | 05/21/2014 | | Results for this | | | e | 12:00 AM | | procedure are in the | | | | PST | | results section. | + +--------+ + + + | MAGNESIUM | Routin | 05/21/2014 | | Results for this | | | e | 12:00 AM | | procedure are in the | | | | PST | | results section. | + +--------+ + + + | CK TOTAL | Routin | 05/21/2014 | | Results for this | | | e | 12:00 AM | | procedure are in the | | | | PST | | results section. | + +--------+ + + + | RENAL FUNCTION PANEL | Routin | 05/21/2014 | | Results for this | | | e | 12:00 AM | | procedure are in the | | | | PST | | results section. | + +--------+ + + + documented in this encounter Results Urinalysis with Microscopic with Culture if Indicated (05/21/2014 12:00 AM PST) + + + + [...] + + External Lab: Tacrolimus Level, LC-MS/MS (05/21/2014 12:00 AM PST) + +-------+ + + + | Component | Value | Ref Range | Performed | Pathologist | | | | | At | Signature | + +-------+ + + + | Tacrolimus | 5.2 | | EXTERNAL | | | Level [...] + + Parathyroid Hormone, Intact and Calcium (05/21/2014 12:00 AM PST) + + + + + + | Component | Value | Ref Range | Performed | Pathologist | | | | | At | Signature | + + + + + + | PTH Intact | 98.21 (A) | 15 - 65 | EXTERNAL | | | | | | LAB | | + + + + + + | Calcium | 8.5 | 8.4 - 10 | EXTERNAL | | | | [...] + +---------+ + + Protein/Creatinine Ratio, Urine (05/21/2014 12:00 AM PST) + +-------+ + + + | Component | Value | Ref Range | Performed | Pathologist | | | | | At | Signature | + +-------+ + + + | Protein/Cre | 82.8 | 0 - 150 | EXTERNAL | [...] + +---------+ + + Protein, Urine, Random (05/21/2014 12:00 AM PST) + +-------+ + + + | Component | Value | Ref Range | Performed | Pathologist | | | | | At | Signature | + +-------+ + + + | Protein, | 13 | 0.0 - 50.0 | EXTERNAL | [...] + +---------+ + + Creatinine, Urine, Random (05/21/2014 12:00 AM PST) + +-------+ + + + | Component | Value | Ref Range | Performed | Pathologist | | | | | At | Signature | + +-------+ + + + | Creatinine, | 157 | | EXTERNAL | | | 24H [...] + + Vitamin D, Deficiency Screen (25-Hydroxy) (05/21/2014 12:00 AM PST) + +-------+ + + + | Component | Value | Ref Range | Performed | Pathologist | | | | | At | Signature | + +-------+ + + + | Vit D, | 42 | 30 - 100 | EXTERNAL | [...] + +---------+ + + External Lab: CBC (05/21/2014 12:00 AM PST) + + + + + + | Component | Value | Ref Range | Performed | Pathologist | | | | | At | Signature | + + + + + + | WBC | 8.3 | 4.5 - 11.0 10 | EXTERNAL | | | | | | LAB | | + + + + + + | Non- | 5.72 (A) | 4.3 - 5.7 10 | EXTERNAL | | | Red Blood | | | LAB | | | Cells | | | | | | Counted | | | | | + + + + + + | Hemoglobin | 17.1 | 13.5 - 18.0 | EXTERNAL | | | | | g/dL | LAB | | + + + + + + | Hematocrit, | 52.8 (A) | 41 - 50 % | EXTERNAL | | | POC | | | LAB | | + + + + + + | MCV | 92.2 | 81 - 99 fL | EXTERNAL [...] + + + + | Platelet | 396 | 140 - 440 K/ L | EXTERNAL | | | Count | | | LAB | | | Plasma | | | | | + + + + + + | RDW-CV | 15.5 (A) | 10.5 - 15.0 % | EXTERNAL [...] + + + | % Segmented | 60 | 39 - 80 % | EXTERNAL | | | | | | LAB | | | Neutrophils | | | | | + + + + + + | % | 18 (A) | 24 - 44 % | EXTERNAL | | | Lymphocytes | | | LAB | | + + + + + + | % Monocytes | 14 (A) | 0 - 12 % | EXTERNAL | | | | | | LAB | | + + + + + + | % | 7 (A) | 0 - 6 % | EXTERNAL | | | Eosinophils | | | LAB | | + + + + + + | % Basophils | 1 | 0 - 2 % | EXTERNAL [...] | | + +---------+ + + ALT (05/21/2014 12:00 AM PST) + +-------+ + + + | Component | Value | Ref Range | Performed | Pathologist | | | | | At | Signature | + +-------+ + + + | ALT | 22 | 7 - 52 U/L | EXTERNAL [...] | | + +---------+ + + AST (05/21/2014 12:00 AM PST) + +-------+ + + + | Component | Value | Ref Range | Performed | Pathologist | | | | | At | Signature | + +-------+ + + + | AST | 18 | 13 - 39 U/L | EXTERNAL [...] | | + +---------+ + + Magnesium (05/21/2014 12:00 AM PST) + +---------+ + + [...] | + +---------+ + + CK Total (05/21/2014 12:00 AM PST) + +-------+ + + + | Component | Value | Ref Range | Performed | Pathologist | | | | | At | Signature | + +-------+ + + + | CK, Total | 111 | 24 - 195 U/L | EXTERNAL [...] + +---------+ + + Renal Function Panel (05/21/2014 12:00 AM PST) + +---------+ + + + | Component | Value | Ref Range | Performed | Pathologist | | | | | At | Signature | + +---------+ + + + | Glucose, | 119 (A) | 70 - 100 mg/dL | [...] +---------+ + + + | Albumin | 4.0 | 3.5 - 5.0 | EXTERNAL | | | | | | LAB | | + +---------+ + + + | Na | 137 | 132 - 143 | EXTERNAL | | | | | mmol/L | LAB | | + +---------+ + + + | K | 4.1 | 3.6 - 5.1 | EXTERNAL | [...] + + + | Anion Gap | 15.1 | 7 - 21 mmol/L | EXTERNAL | | | | | | LAB | | + +---------+ + + + | eGFR if not | | | EXTERNAL | | | | | | LAB | | | NIGERIEN | | | | | + +---------+ [...] | + +---------+ + + Lipid Panel (05/21/2014 12:00 AM PST) + +---------+ + + + | Component | Value | Ref Range | Performed | Pathologist | | | | | At | Signature | + +---------+ + + + | Cholesterol | 186 | 200 mg/dL | EXTERNAL | | | | | | LAB | | + +---------+ + + + | Triglycerid | 82 | 30 - 150 mg/dL | EXTERNAL | | | es | | | LAB | | + +---------+ + + + | HDL | 56.4 | 40 mg/dl | EXTERNAL | | | | | | LAB | | + +---------+ + + + | LDL, | 113 (A) | 100 mg/dL | EXTERNAL | | | Calculated | | | LAB | | + +---------+ + + + | LDl/HDL | | | EXTERNAL | | | Ratio | | | LAB | | + +---------+ + + + | Chol/HDL | 3.3 | 4.97 | EXTERNAL | | | Ratio | | | LAB | | + +---------+ + + + | VLDL | 16 | 4 - 40 mg/dL | EXTERNAL | | | | | | LAB | | + +---------+ + + + | Non HDL | 130 | 130 | EXTERNAL | | | [...]
--- OUTSIDE RECORDS SUMMARY | ~2019-10-28 | XMS | Encounter Summary ---
Demographics + + + | Address | [address] | | | [place] [address] | + + + | Home Phone | | + + + | Preferred Language | Unknown | + + + | Marital Status | Single | + + + | Samaritan Affiliation | CHR | + + + | Race | White | + + + | Ethnic Group | Not or | + + + Author + + + | Author | [facility] | + + + | Organization | [facility] | + + + | Address | Unknown | + + + | Phone | Unavailable | + + + Support + + + + + | Name | Relationship | Address | Phone | + + + + + | Krissy Rogers | BRADEN | [place] [address] | | + + + + + | Bay Rogers | ECON | Unknown | | + + + + + Care Team Providers + +------+ + | Care Architectural Associate Name | Role | Phone | [...] (posterior | | 2016 | Visit | [place] | [address] | capsular | | | | ogy at [facility] [address] | [place], [place] | opacification), | | | | [address] Mailcode: | [phone] | right (Primary Dx); | | | | [facility] for | [phone] | Proliferative | | | | Health and Healing, | | diabetic retinopathy | | | | Building | | of both eyes | | | | Floor [place], [place] | | without macular | | | | [address] | | edema associated | | | | [phone] | | with type 2 diabetes | [...] and Plan: Exam Date: 02/08/2017 Patient:Wilson Rogers ([id number]) Impression: s/p PPV/PPL/retinectomy/EL/gas OS on 12/02/2008 -retina [...] Sherrie Workman MD 02/08/2017 HPI: Wilson Rogers ([id number]), 46 y.o. year old male from [place] : Patient presents with: Medical Eye Examination [...] scanned intake form or preadmission data in [facility] for full Family ocular and medical his [...] diabetes mellitus with ophthalmic manifestations, uncontrol led(250.52) ([facility]) Kidney replaced by transplant Encounter for long-term (current) use of medications Polycythemia, secondary Proliferative diabetic retinopathy of both eyes without macular edema associated with t ype 2 diabetes mellitus ([facility]) Past Medical History: Diagnosis Date Nephritis and [...] I have reviewed and edited history and garage door service technician documentation, and performed all other el ements to above examination documentation. Sherrie Workman MD Health Education Director Comprehensive Ophthalmology [facility] Physician: Sherrie Workman MD Procedure Note 02/08/2017 [...] | | | | | | [place], [place] | | | | | | [address] | | | | | | [phone] | | | | | | | | +--------+---------+ + + + documented as of this encounter Procedures + +--------+ + + + | Procedure Name | Priori | Date/Time | Associated Diagnosis | Comments | | | ty | | | | + +--------+ + + + | MN DISCISSION,2ND | Routin | 02/08/2017 | Right posterior | | | CATARACT,LASER | e | 3:28 PM | capsular | | | | | PDT | opacification | | + +--------+ + + + | MN DISCISSION,2ND | Routin | 02/08/2017 | Right [...]
--- OUTSIDE RECORDS SUMMARY | ~2019-10-28 | XMS | Encounter Summary ---
Demographics + + + | Address | [address] | | | [place] [address] | + + + | Home Phone [...] Author + + + | Author | [facility] | + + + | Organization | [facility] | + + + | Address | Unknown | + + + | Phone | Unavailable | + + + Support + + + + + | Name | Relationship | Address | Phone | + + + + + | Krissy Rogers | BRADEN | [place] [address] | | + + + + + | Bay Rogers | ECON | Unknown | | + + + + + Care Team Providers + +------+ + | Care Sausage Cooker Name | Role | Phone | + +------+ + | Jono Arambula | PCP | | + +------+ + Reason for Visit + + + | Reason | Comments | + + + | OCT - Macula | OU | + + + Encounter Details +--------+ + + + + | Date | Type | Department | Care Team | Description | +--------+ + + + + | 01/19/ | Diagnostic | [facility] | | OCT - Macula (OU) | | 2015 | Visit | [place] | | | | | | Photography at | | | | | | [address] | | | | | | [address] | | | | | | Eye [place], [facility] | | | | | | floor [place], [place] | | | | | | [address] | | | +--------+ + + + [...] + documented as of this encounter Progress Raven Dai - 01/21/2016 11:20 AM PDTThe interpretation for the following study: JAN - - OU can be found on physician encounter on 01/20/2016. documented in this encounter Plan of Treatment +--------+---------+ + + + | Date | Type | Specialty | Care Team | Description | +--------+---------+ + + + | 01/26/ | Office | Ophthalmology | Maria Elena Lieberman, | | | 2019 | Visit | | [address] | | | | | | [address] | | | | | | [place], [place] | | | | | | [address] | | | | | | [phone] | | | | | | | | +--------+---------+ + + + documented as of this encounter Visit Diagnoses + + | Diagnosis | + + | 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
--- OUTSIDE RECORDS SUMMARY | ~2019-10-28 | XMS | Encounter Summary ---
Demographics + + + | Address | [address] | | | [place] [address] | + + + | Home Phone | | + + + | Preferred Language | Unknown | + + + | Marital Status | Single | + + + | Yarsanism Affiliation | CHR | + + + | Race | White | + + + | Ethnic Group | Not or | + + + Author + + + | Author | [facility] | + + + | Organization | [facility] | + + + | Address | Unknown | + + + | Phone | Unavailable | + + + Support + + + + + | Name | Relationship | Address | Phone | + + + + + | Krissy Rogers | BRADEN | [place] [address] | | + + + + + | Bay Rogers | ECON | Unknown | | + + + + + Care Team Providers + +------+ + | Care Broom Man Name | Role | Phone | [...] (wanting to | | 2008 | | [facility] at | [address] | [place]) | | | | [facility] [address] | [address] | | | | | [address] | [place], [place] | | | | | Eye [place], [facility] | [address] | | | | | [place], [place] | [phone] | | | | | [address] | [...] | | | | | | [place] | | | | | | [address] | | | | | | [phone] | | | | | | | | +--------+---------+ + + + documented as of this encounter Visit Diagnoses Not on filedocumented in this encounter"
--- OUTSIDE RECORDS SUMMARY | ~2019-10-28 | XMS | Encounter Summary ---
Demographics + + + | Address | [address] | | | [place] [address] | + + + | Home Phone | | + + + | Preferred Language | Unknown | + + + | Marital Status | Single | + + + | Protestant Affiliation | CHR | + + + | Race | White | + + + | Ethnic Group | Not or | + + + Author + + + | Author | [facility] | + + + | Organization | [facility] | + + + | Address | Unknown | + + + | Phone | Unavailable | + + + Support + + + + + | Name | Relationship | Address | Phone | + + + + + | Krissy Rogers | BRADEN | [place] [address] | | + + + + + | Bay Rogers | ECON | Unknown | | + + + + + Care Team Providers + +------+ + | Care Tablet Making Machine Operator Name | Role | Phone [...] | | 2012 | | Center at [facility] [address] | | - General | | | | [address] | | (Gastroparesis) | | | | Mailcode: Center | | | | | | [facility] and | | | | | | [facility] [address] | | | | | | [place], [place] | | | | | | [address] | | | | | | [phone] | | | +--------+ + + + [...] Manzano | | | | | | [place] | | | | | | [address] | | | | | | [phone] | | | | | | | | +--------+---------+ + + + documented as of this encounter Visit Diagnoses Not on filedocumented in this encounter"
--- OUTSIDE RECORDS SUMMARY | ~2019-10-28 | XMS | Encounter Summary ---
Demographics + + + | Address | [address] | | | [place] [address] | + + + | Home Phone [...] Krissy Rogers | BRADEN | [place] [address] | | + + + + + | Bay Rogers | ECON | Unknown | | + + + + + Care Team Providers + +------+ + | Care Weatherization Operations Manager Name | Role | Phone | [...] Type | | 2008 | Visit | [facility] at | [address] | II, Uncontrolled | | | | [facility] [address] | ([facility]) (Primary Dx); | | | | [address] | [place], [place] | Unspecified Retinal | | | | Eye [place], [facility] | [address] | Detachment; | | | | floor [place], [place] | [phone] | Proliferative | | | | [address] | | Diabetic Retinopathy | | | | | | ([facility]) | +--------+---------+ + + + [...] Manzano | | | | | | [place], [place] | | | | | | [address] | | | | | | [phone] | | | | | | | | +--------+---------+ + + + documented as of this encounter Visit Diagnoses + + | Diagnosis | + + | Type II or unspecified type diabetes mellitus with ophthalmic manifestations, | | uncontrolled(250.52) ([facility]) - Primary Type II or unspecified type diabetes mellitus with | | ophthalmic manifestations, uncontrolled | + + | Unspecified retinal detachment | + + | Proliferative diabetic retinopathy(362.02) Proliferative diabetic retinopathy | + + documented in this encounter
--- OUTSIDE RECORDS SUMMARY | ~2019-10-28 | XMS | Encounter Summary ---
Demographics + + + | Address | [address] | | | [place] [address] | + + + | Home Phone | | + + + | Preferred Language | Unknown | + + + | Marital Status | Single | + + + | Anabaptist Affiliation | CHR | + + + [...] Krissy Rogers | BRADEN | [place] [address] | | + + + + + | Bay Rogers | ECON | Unknown | | + + + + + Care Team Providers + +------+ + | Care Soup Person Name | Role | Phone | + [...] | | | | | Moraima Hernandez [place], | | | | | | [place] [address] | | | +--------+ + + + [...] | | 2019 | Visit | | [address] | | | | | | [address] | | | | | | [place], [place] | | | | | | [address] | | | | | | [phone] | | | | | | | [...] - | [address] | [place] [address] | | | IMMUNOGENETICS/TRANS | [address] | | | | PLANT LAB[facility]ATORY | | | | + + + + + documented in this encounter Visit Diagnoses + + | Diagnosis | + + | End stage renal disease (HCC) End stage renal disease | + + documented in this encounter"
--- OUTSIDE RECORDS SUMMARY | ~2019-10-28 | XMS | Encounter Summary ---
Demographics + + + | Address | [address] | | | [place] [address] | + + + | Home Phone | | + + + | Preferred Language | Unknown | + + + | Marital Status | Single | + + + | Gnosticism Affiliation | CHR | + + + [...] Krissy Rogers | BRADEN | [place] [address] | | + + + + + | Bay Rogers | ECON | Unknown | | + + + + + Care Team Providers + +------+ + | Care Sql Report Writer Name | Role | Phone | + [...] Prasad | | | | | | Moraiam Hernandez [place], | | | | | | [place] [address] | | | +--------+ + + + [...] | | 2019 | Visit | | [address] | | | | | | [address] [place] | | | | | | [place], [place] | | | | | | [address] | | | | | | [phone] | | | | | | | [...] [facility] - | [address] | [place] [address] | | | IMMUNOGENETICS/TRANS | [address] | | | | PLANT LABORATORY | | | | + + + + + documented in this encounter Visit Diagnoses Not on filedocumented in this encounter"
--- OUTSIDE RECORDS SUMMARY | ~2019-10-28 | XMS | Encounter Summary ---
Demographics + + + | Address | [address] | | | [place] [address] | + + + | Home Phone | | + + + | Preferred Language | Unknown | + + + | Marital Status | | + + + | Restorationist Affiliation | 1013 | + + + | Race | Unknown | + + + | Ethnic Group | Unknown | + + + Author + + + | Author | [facility] | | | and [place] | + + + | Organization | [facility] | | | [...] [address] | | | | | [address] | | + + + + + | Ellen Rogers | ECON | [address] | | | | | [place] | | + + + + + | Gisell Rogers | ECON | Unknown | | + + + + + Care Team Providers + +------+ + | Care Site Inspector Name | Role | Phone | + +------+ + | Lizbet Sellers MD | PCP | | + +------+ + Encounter Details +--------+ + + + + | Date | Type | Department | Care Team | Description | +--------+ + + + + | 10/19/ | Orders Only | [facility] | Conversion | | | 2017 | | NEPHROLOGY [place] | Transaction, | | | | | [address] | Provider Unknown | | | | | [address] [place], [place] | | | | | | [address] | (Fax) | | | | | [phone] | | | +--------+ + + + [...] | | | | | | [address] [facility] [place] | | | | | | [address] | | | | | | | | +--------+---------+ + + + documented as of this encounter Procedures + +--------+ + + + | Procedure Name | Priori | Date/Time | Associated Diagnosis | Comments | | | ty | | | | + +--------+ + + + | EXTERNAL LAB: | Routin | 10/19/2016 | | Results for this | | TACROLIMUS LEVEL, | e | 2:21 PM | | procedure are in the | | LC-MS/MS | | PDT | | results section. | + +--------+ + + + | EXTERNAL LAB: CBC | Routin | 10/19/2016 | | Results for this | | | e | 2:21 PM | | procedure are in the | | | | PDT | | results section. | + +--------+ + + + | MAGNESIUM | Routin | 10/19/2016 | | Results for this | | | e | 2:21 PM | | procedure are in the | | | | PDT | | results section. | + +--------+ + + + | HEPATIC FUNCTION | Routin | 10/19/2016 | | Results for this | | PANEL | e | 2:21 PM | | procedure are in the | | | | PDT | | results section. | + +--------+ + + + | RENAL FUNCTION PANEL | Routin | 10/19/2016 | | Results for this | | | e | 2:21 PM | | procedure are in the | | | | PDT | | results section. | + +--------+ + + + documented in this encounter Results External Lab: Tacrolimus Level, LC-MS/MS (10/19/2016 2:21 PM PDT) + +-------+ + + + | Component | Value | Ref Range | Performed | Pathologist | | | | | At | Signature | + +-------+ + + + | Tacrolimus | 8.5 | | EXTERNAL | | | Level [...] + +---------+ + + External Lab: CBC (10/19/2016 2:21 PM PDT) + +-------+ + + + | Component | Value | Ref Range | Performed | Pathologist | | | | | At | Signature | + +-------+ + + + | WBC | 7.6 | 4.0 - 10.0 10 | EXTERNAL | | | | | | LAB | | + +-------+ + + + | Non- | 4.95 | 4.31 - 6.40 10 | EXTERNAL | | | Red Blood | | | LAB | | | Cells | | | | | | Counted | | | | | + +-------+ + + + | Hemoglobin | 15.0 | 13.6 - 18.0 | EXTERNAL | | | | | g/dL | LAB | | + +-------+ + + + | Hematocrit, | 45.3 | 39.8 - 52.0 % | EXTERNAL | | | POC | | | LAB | | + +-------+ + + + | MCV | 91.5 | 80 - 97 fL | EXTERNAL | | | | | | LAB | | + +-------+ + + + | MCH | 30.3 | 26.0 - 34.0 pg | EXTERNAL | | | | | | LAB | | + +-------+ + + + | MCHC | 33.1 | 32.0 - 36.0 | EXTERNAL | | | | | g/dL | LAB | | + +-------+ + + + | Platelet | 357 | 140 - 440 K/ L | EXTERNAL | | | Count | | | LAB | | | Plasma | | | | | + +-------+ + + + | RDW-CV | 12.0 | 11.5 - 15.0 % | EXTERNAL [...] | | + +---------+ + + Magnesium (10/19/2016 2:21 PM PDT) + +---------+ + + + | [...] + +---------+ + + Hepatic Function Panel (10/19/2016 2:21 PM PDT) + +---------+ + + + | Component | Value | Ref Range | Performed | Pathologist | | | | | At | Signature | + +---------+ + + + | Protein, | 6.4 | 6.0 - 8.3 g/dL | EXTERNAL | | | Total | | | LAB | | + +---------+ + + + | Albumin | 3.8 | 3.5 - 5.0 | EXTERNAL | | | | | | LAB | | + +---------+ + + + | Bilirubin | 1.6 (A) | 0.3 - 1.2 mg/dL | EXTERNAL | | | Total | | | LAB | | + +---------+ + + + | Bilirubin | 0.4 (A) | 0.0 - 0.2 mg/dL | EXTERNAL | | | Direct | | | LAB | | + +---------+ + + + | ALP, | 78 | 53 - 128 | EXTERNAL | | | External | | | LAB | | + +---------+ + + + | AST | 31 | 10 - 35 U/L | EXTERNAL | | | | | | LAB | | + +---------+ + + + | ALT | 24 | 14 - 50 U/L | EXTERNAL [...] + +---------+ + + Renal Function Panel (10/19/2016 2:21 PM PDT) + + + + + + | Component | Value | Ref Range | Performed | Pathologist | | | | | At | Signature | + + + + + + | Glucose, | 98 | 74 - 100 mg/dL | EXTERNAL | | | Fasting | | | LAB | | + + + + + + | BUN | 16 | 6 - 20 mg/dL | EXTERNAL | | | | | | LAB | | + + + + + + | Creatinine | 1.35 (A) | 0.70 - 1.30 | EXTERNAL | | | | | mg/dL | LAB | | + + + + + + | PHOSPHORUS | 3.9 | 2.7 - 4.5 mg/dL | EXTERNAL | | | | | | LAB | | + + + + + + | Albumin | 3.8 | 3.5 - 5.0 | EXTERNAL | | | | | | LAB | | + + + + + + | Na | 137 | 136 - 145 | EXTERNAL | | | | | mmol/L | LAB | | + + + + + + | K | 3.7 | 3.6 - 5.0 | EXTERNAL | | | | | mmol/L | LAB | | + + + + + + | Cl | 100 | 98 - 107 mmol/L | EXTERNAL | | | | | | LAB | | + + + + + + | CO2 | 30 (A) | 22 - 28 mmol/L | [...] | | | LAB | | | [place] | | | | | + + + + + + | Phosphorus, | | | EXTERNAL | | | Inorganic | | | LAB | | + + + + + + | BUN/Creatin | | | EXTERNAL | | | ine Ratio | | | LAB | | + + + + + + | Calcium | 8.4 (A) | 8.6 - 10.3 | EXTERNAL [...]
--- OUTSIDE RECORDS SUMMARY | ~2019-10-28 | XMS | Encounter Summary ---
Demographics + + + | Address | [address] | | | [place] [address] | + + + | Home Phone [...] Krissy Rogers | BRADEN | [place] [address] | | + + + + + | Bay Rogers | ECON | Unknown | | + + + + + Care Team Providers + +------+ + | Care Cottonseed Meat Presser Name | Role | Phone | + [...] | | | | | | | [place], [place] | | | | | | | [address] | | | | | | | Phone: | | | | | | | [phone] | | | | | | | Fax: | | | | | | | [phone] | +--------+--------+ + + + + Encounter Details +--------+ + + + + | Date | Type | Department | Care Team | Description | +--------+ + + + + | 09/16/ | Hospital | [facility] | Maria Elena Lieberman, | | | 2008 | Encounter | [address] | MD [address] | | | | | [address] | [place]zano | | | | | Clarita Alanis | [place], [place] | | | | | [place], [place] | [address] | | | | | [address] | [phone] | | | | | | | [...] Manzano | | | | | | [place], [place] | | | | | | [address] | | | | | | [phone] | | | | | | | [...] view image for the detailed interpretation from [employer] results. | CARDIOLOGY | | | | + + + + + + + + | Performing | Address | City/State/Zipcode | Phone Number | | Organization | | | | + + + + + | [facility] | [address] | [place], [place] | | | CARDIOLOGY | [address] | [address] | | + + + + + | [facility] | [address] | [place], [place] | | | CARDIOLOGY | [facility] | [address] | | + + + + + [...] Performed At | + + + | [id number] Estimated GFR = 10 mL/min/1.73 sq m if non- | [facility] | | Palestinian [id number] Estimated GFR = 12 mL/min/1.73 sq m if | DEPARTMENT OF | | Palestinian GFR is estimated using the MDRD equation [...] | + + + + + | [facility] | [address] | [place] [address] | | | PATHOLOGY | [address] | | | + + + + + | [facility] DEPARTMENT OF | [address] | [place] [address] | | | PATHOLOGY | [address] [...] | + + + + + | [facility] DEPARTMENT OF | [address] | [place] [address] | | | PATHOLOGY | [address] | | | + + + + + | [facility] DEPARTMENT OF | [address] | [place] [address] | | | PATHOLOGY | [address] [...] Performed At | + + + | [id number] Estimated GFR = 10 mL/min/1.73 sq m if non- | [facility] | | Palestinian 472867 Estimated GFR = 12 mL/min/1.73 sq m if | DEPARTMENT | | Palestinian GFR is estimated using the MDRD equation [...] | + + + + + | [facility] | [address] | [place] [address] | | | PATHOLOGY | [address] | | | + + + + + | [facility] | [address] | [place] [address] | | | PATHOLOGY | [address] [...] | + + + + + | [facility] | [address] | [place] [address] | | | PATHOLOGY | [address] | | | + + + + + | [facility] | [facility] | [place] [address] | | | PATHOLOGY | [address] | | | + + + + + OPERATION RECORD (09/16/2008 12:00 AM PDT) + + + | Narrative | Performed At | + + + | [id number] | | | [id number] | | | [id number] [facility] [id number] | | | Date: 09/16/2008 Attending Surgeon: | | | Maria Elena Lieberman M.D. Digital Media Buyer(s): | | | Myron Meehan M.D. | [...] | | | Maria Elena Lieberman M.D. [facility] [id number] / [id number] / | | | [address] / | | + + + + + | Procedure Note | + + | Myron Meehan Md - 09/16/2008 12:00 AM PDT [id number] | | [id number] [facility] | | [phone] [id number] Date: 09/16/2008 Attending Surgeon: | | Maria Elena Lieberman M.D. Digital Media Buyer(s): Myron Meehan M.D. | | Preoperative Diagnoses:1. [...] Elena Mishra | | Aron Lieberman. / [id number] / [id number] / [id number] / T: 09/17/2008 | |posterior to the [...] | | | | | / | |[id number] / [id number] / [id number] / | | | | | | | | | | | | | | | | | | | | | + + documented in this encounter Visit Diagnoses Not on filedocumented in this encounter
--- OUTSIDE RECORDS SUMMARY | ~2019-10-28 | XMS | Encounter Summary ---
Demographics + + + | Address | [address] | | | [place] [address] | + + + | Home Phone [...] Krissy Rogers | BRADEN | [place] [address] | | + + + + + | Bay Rogers | ECON | Unknown | | + + + + + Care Team Providers + +------+ + | Care Flight Steward Name | Role | Phone | + [...] To | | 2016 | on | [facility] | [address] | Ophthalmology | | | | ogy at [facility] [address] | [place], [place] | | | | | [address] Mailcode: | [address] | | | | | [facility] | [phone] | | | | | [facility], | | | | | | | | | | | | Floor [place], [place] | | | | | | [address] | | | | | | [phone] | | | +--------+ + + + [...] Manzano | | | | | | [place], [place] | | | | | | [address] | | | | | | [phone] | | | | | | | | +--------+---------+ + + + documented as of this encounter Visit Diagnoses Not on filedocumented in this encounter"
--- OUTSIDE RECORDS SUMMARY | ~2019-10-28 | XMS | Encounter Summary ---
Demographics + + + | Address | [address] | | | [place] [address] | + + + | Home Phone | | + + + | Preferred Language | Unknown | + + + | Marital Status | | + + + | Mu-Ism Affiliation | 1013 | + + + | Race | Unknown | + + + | Ethnic Group | Unknown | + + + Author + + + | Author | [facility] | | | and [place] | + + + | Organization | [facility] | | | [...] [place] | | | | | [address] | | + + + + + | Ellen Greer | ECON | [address] | | | | | [place] | | + + + + + | Gisell Greer | ECON | Unknown | | + + + + + Care Team Providers + +------+ + | Care Field Agronomist Name | Role | Phone | + +------+ + PCP | Unavailable | + +------+ + Encounter Details +--------+ + + + + | Date | Type | Department | Care Team | Description | +--------+ + + + + | 08/31/ | Hospital | [facility] | Jaren Pelayo MD | End Stage Renal | | 2009 | Encounter | [facility] | [address] | Disease (HCC) | | | | CLINICAL DECISION | [address] [place], [place] | | | | | [address] [facility] | [address] | | | | | [place] | | | | | | [address] | | | | | | [phone] | | | +--------+ + + + [...] | Visit | | [address] [facility] | | | | | | [address] [place] | | | | | | [address] | | | | | | | | +--------+---------+ + + + documented as of this encounter Procedures + +--------+ + + + | Procedure Name | Priori | Date/Time | Associated Diagnosis | Comments | | | ty | | | | + +--------+ + + + | IR REMOVAL TUNNELED | Routin | 08/31/2009 | | Results for this | | CV CATH WO PORT | e | 2:45 PM | | procedure are in the | | | | PDT | | results section. | + +--------+ + + + documented in this encounter Results IR Removal Tunneled CV Cath wo Port (08/31/2009 2:45 PM PDT) + + | Specimen | + + | | + + + + + | Narrative | Performed At | + + + | [id number] [facility] | | | [facility] [address] | | | , RADIOLOGY | | | Patient Name: WILSON GREER Date of : 1970 | | | Medical Record: [id number] Account: [id number] [facility] | | | Exam Date/Time: 08/31/2009 02:30 P Ordering | | | Provider: JAREN PELAYO Order Detail: [id number] / / [facility] Exam | | | Description: IR TUNNELED CATHETER REMOVAL | | | | | | PROCEDURE Removal of dual-lumen tunnelled dialysis catheter from the | | | right upper chest under local anesthesia. HISTORY The patient no | | | longer utilizing his right upper chest tunnelled dialysis catheter | | | as a functioning access. 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 Needs removal of dialysis catheter. MEDICATIONS | | | Lidocaine 1% for local anesthesia. DESCRIPTION OF PROCEDURE I met | | | this patient in the process laboratory specialist holding area . The patient was awake, | | | alert, and oriented times 3 and in no acute distress. We had a | | | discussion about the procedure, the risks involved, and the | | | alternatives. The patient verbalized understanding of this and his | | | desire was to proceed with the procedure. Therefore, written informed | | | consent was obtained. The patient was placed supine on the bed. | | | The right upper chest and external portion of the catheter were | | | prepped using Chlorhexidine. The skin and subcutaneous tissues were | | | infiltrated with 1% lidocaine. The heparin lock was removed was | | | removed from the dialysis catheter and a 0.035 Amplatz guidewire was | | | placed into the venous port. Subsequently, using sharp and blunt | | | dissection the subcutaneous cuff was from the adjacent soft | | | tissues and the catheter was removed over the wire. Hemostasis was | | | obtained with manual pressure. The patient tolerated the procedure | | | well and no procedural complications were encountered. | | | IMPRESSION Successful removal of right upper chest tunnelled dialysis | | | catheter under local anesthesia without incidence. Read by | | | NAWAF PARTIDA 08/31/2009 02:49 P Electronically Signed by | | | NAWAF PARTIDA 09/02/2009 07:41 A P | | | A [id number]/ cc: JAREN PELAYO MD | | | MD GEETHA COSME ARNP | | + + + + + | Procedure Note | + + | Billy Butler - 12/15/2018 8:49 PM PDT | | [id number] | | [facility] | | [facility] [address] | | , | | RADIOLOGY | | | | Patient Name: WILSON GREER W | | Date of : 1970 | | Medical Record: [id number] | | Account: [id number] | | [facility] | | | | | | Exam Date/Time: 08/31/2009 02:30 P | | Ordering Provider: AJREN PELAYO | | Order Detail: [id number] / / HIR | | Exam Description: IR TUNNELED CATHETER REMOVAL | | | | PROCEDURE | | Removal of dual-lumen tunnelled dialysis catheter from the right upper | | chest under local anesthesia. | | | | HISTORY | | The patient no longer utilizing his right upper chest tunnelled dialysis | | catheter as a functioning access. He has bilateral arm AV fistulas for | | dialysis. Needs removal of dialysis catheter. | | | | MEDICATIONS | | Lidocaine 1% for local anesthesia. | | | | DESCRIPTION OF PROCEDURE | | I met this patient in the process laboratory specialist holding area . The patient was awake, | | alert, and oriented times 3 and in no acute distress. We had a | | discussion about the procedure, the risks involved, and the | | alternatives. The patient verbalized understanding of this and his | | desire was to proceed with the procedure. Therefore, written informed | | consent was obtained. | | | | The patient was placed supine on the bed. The right upper chest and | | external portion of the catheter were prepped using Chlorhexidine. The | | skin and subcutaneous tissues were infiltrated with 1% lidocaine. The | | heparin lock was removed was removed from the dialysis catheter and a | | 0.035 Amplatz guidewire was placed into the venous port. Subsequently, | | using sharp and blunt dissection the subcutaneous cuff was | | from the adjacent soft tissues and the catheter was removed over the | | wire. Hemostasis was obtained with manual pressure. | | | | The patient tolerated the procedure well and no procedural complications | | were encountered. | | | | IMPRESSION | | Successful removal of right upper chest tunnelled dialysis catheter | | under local anesthesia without incidence. | | | | | | | | Read by | | NAWAF PARTIDA 08/31/2009 02:49 P | | Electronically Signed by | | NAWAF PARTIDA 09/02/2009 07:41 A | | | | P | | A | | [id number]/ | | cc: JAREN PELAYO MD | | ROMERO RYAN MD | | NAWAF PARTIDA | + + documented in this encounter Visit Diagnoses + + | Diagnosis | + + | End stage renal disease (HCC) End stage renal disease | + + documented in this encounter"
--- OUTSIDE RECORDS SUMMARY | ~2019-10-28 | XMS | Encounter Summary ---
Demographics + + + | Address | [address] | | | [place] [address] | + + + | Home Phone [...] Krissy Rogers | BRADEN | [place] [address] | | + + + + + | Bay Rogers | ECON | Unknown | | + + + + + Care Team Providers + +------+ + | Care Accounting Technician Name | Role | Phone | + +------+ + | Jono Arambula | PCP | | + +------+ + Encounter Details +--------+ + + + + | Date | Type | Department | Care Team | Description | +--------+ + + + + | 01/20/ | Abstract | [facility] | Julianne Gongora, | | | 2012 | | [place] [facility] | [address] | | | | | [address] | | | | | [place], [place] | [place], [place] | | | | | [address] | [address] | | | | | [phone] | [phone] | | | | | | | [...] Manzano | | | | | | [place], [place] | | | | | | [address] | | | | | | [phone] | | | | | | | | +--------+---------+ + + + documented as of this encounter Visit Diagnoses Not on filedocumented in this encounter"
--- OUTSIDE RECORDS SUMMARY | ~2019-10-28 | XMS | Encounter Summary ---
Demographics + + + | Address | [address] | | | [place] [address] | + + + | Home Phone | | + + + | Preferred Language | Unknown | + + + | Marital Status | | + + + | Baptism Affiliation | 1013 | + + + | Race | Unknown | + + + | Ethnic Group | Unknown | + + + Author + + + | Author | [facility] | | | and [place] | + + + | Organization | [facility] | | [...] [address] | | | | | [address] | | + + + + + | Ellen Rogers | ECON | [address] | | | | | [place] | | + + + + + | Gisell Rogers | ECON | Unknown | | + + + + + Care Team Providers + +------+ + | Care Supervisor Harvesting Name | Role | Phone | + +------+ + | Lizbet Sellers MD | PCP | | + +------+ + Encounter Details +--------+ + + + + | Date | Type | Department | Care Team | Description | +--------+ + + + + | 06/12/ | Orders Only | [facility] | Jaren Pelayo MD | | | 2019 | | NEPHROLOGY [place] | [address] [place] | | | | | [address] [place] | [address] [place], [place] | | | | | [address] [place], [place] | [address] | | | | | [address] | | | | | | [phone] | | | +--------+ + + + [...] 2020 | Visit | | [address] [facility] | | | | | | [address] [place] | | | | | | [address] | | | | | | | | +--------+---------+ + + + documented as of this encounter Procedures + +--------+ + + + | Procedure Name | Priori | Date/Time | Associated Diagnosis | Comments | | | ty | | | | + +--------+ + + + | CBC WITH MANUAL | Routin | 06/12/2018 | | Results for this | | DIFFERENTIAL | e | 11:10 AM | | [...] + + documented in this encounter Results CBC with Manual Differential (06/12/2018 11:10 AM PST) + +--------+ + [...] / L | EXTERNAL | | | Neutrophils | | | LAB | | + [...] | | | LAB | | | [place] | | | | | + + [...]
--- OUTSIDE RECORDS SUMMARY | ~2019-10-28 | XMS | Encounter Summary ---
Demographics + + + | Address | [address] | | | [place] [address] | + + + | Home Phone [...] [address] | | | | | [address] | | + + + + + | Ellen Rogers | ECON | [address] | | | | | [place] | | + + + + + | Gisell Rogers | ECON | Unknown | | + + + + + Care Team Providers + +------+ + | Care Metal Mockup Maker Name | Role | Phone | + +------+ + | Lizbet Sellers MD | PCP | | + +------+ + Encounter Details +--------+ + + + + | Date | Type | Department | Care Team | Description | +--------+ + + + + | 04/05/ | Orders Only | [facility] | Conversion | | | 2015 | | NEPHROLOGY [place] | Transaction, | | | | | [address] [facility] | Provider Unknown | | | | | [address] [place], [place] | | | | | | [address] | (Fax) | | | | | [phone] | | | +--------+ + + + [...] [place] | | | | | | [address] | | | | | | | | +--------+---------+ + + + documented as of this encounter Procedures + +--------+ + + + | Procedure Name | Priori | Date/Time | Associated Diagnosis | Comments | | | ty | | | | + +--------+ + + + | EXTERNAL LAB: | Routin | 04/05/2016 | | Results for this | | TACROLIMUS LEVEL, | e | 10:30 AM | | procedure are in the | | LC-MS/MS | | PST | | results section. | + +--------+ + + + | EXTERNAL LAB: CBC | Routin | 04/05/2016 | | Results for this | | | e | 10:30 AM | | procedure are in the | | | | PST | | results section. | + +--------+ + + + | MAGNESIUM | Routin | 04/05/2016 | | Results for this | | | e | 10:30 AM | | procedure are in the | | | | PST | | results section. | + +--------+ + + + | RENAL FUNCTION PANEL | Routin | 04/05/2016 | | Results for this | | | e | 10:30 AM | | procedure are in the | | | | PST | | results section. | + +--------+ + + + documented in this encounter Results External Lab: Tacrolimus Level, LC-MS/MS (04/05/2016 10:30 AM PST) + +-------+ + + + | Component | Value | Ref Range | Performed | Pathologist | | | | | At | Signature | + +-------+ + + + | Tacrolimus | 9.0 | | EXTERNAL | | | Level [...] + +---------+ + + External Lab: CBC (04/05/2016 10:30 AM PST) + +-------+ + + + | Component | Value | Ref Range | Performed | Pathologist | | | | | At | Signature | + +-------+ + + + | WBC | 7.6 | 4.5 - 11.0 10 | EXTERNAL | | | | | | LAB | | + +-------+ + + + | Non- | 5.07 | 4.3 - 5.7 10 | EXTERNAL | | | Red Blood | | | LAB | | | Cells | | | | | | Counted | | | | | + +-------+ + + + | Hemoglobin | 14.9 | 13.5 - 18.0 | EXTERNAL | | | | | g/dL | LAB | | + +-------+ + + + | Hematocrit, | 46.0 | 41 - 50 % | EXTERNAL | | | POC | | | LAB | | + +-------+ + + + | MCV | 90.8 | 81 - 99 fL | EXTERNAL [...] +-------+ + + + | Platelet | 380 | 140 - 440 K/ L | EXTERNAL | | | Count | | | LAB | | | Plasma | | | | | + +-------+ + + + | RDW-CV | 14.6 | 10.5 - 15.0 % | EXTERNAL [...] | | + +---------+ + + Magnesium (04/05/2016 10:30 AM PST) + +---------+ + + + | Component | Value | Ref Range | Performed | Pathologist | | | | | At | Signature | + +---------+ + + + | Magnesium | 1.4 (A) | 1.7 2.5 | EXTERNAL | | | | | [...] + +---------+ + + Renal Function Panel (04/05/2016 10:30 AM PST) + + + + + + | Component | Value | Ref Range | Performed | Pathologist | | | | | At | Signature | + + + + + + | Glucose, | 254 (A) | 70 - 100 mg/dL | EXTERNAL | | | Fasting | | | LAB | | + + + + + + | BUN | 23 | 6 - 23 mg/dL | EXTERNAL | | | | | | LAB | | + + + + + + | Creatinine | 1.54 (A) | 0.60 - 1.35 | EXTERNAL | | | | | mg/dL | LAB | | + + + + + + | PHOSPHORUS | | mg/dL | EXTERNAL | | | | | | LAB | | + + + + + + | Albumin | 3.7 [...] + + + | Anion Gap | 14.2 | 7 - 21 mmol/L | EXTERNAL | | | | | | LAB | | + + + + + + | eGFR if not | | | EXTERNAL | | | | | | LAB | | | ALBANIAN | | | | | + + + + + + | Phosphorus, | 3.6 | 2.5 - 5.0 | EXTERNAL | | | Inorganic | | | LAB | | + + + + + + | BUN/Creatin | 14.9 | 6.0 - 28.6 | EXTERNAL | | | ine Ratio | | | LAB | | + + + + + + | Calcium | 8.2 (A) | 8.4 - 10.2 | EXTERNAL | | | | | mg/dL | LAB | | + + + + + + | Estimated | 49 | mg/dL | EXTERNAL | | | [...]
--- OUTSIDE RECORDS SUMMARY | ~2019-10-28 | XMS | Encounter Summary ---
Demographics + + + | Address | [address] | | | [place] [address] | + + + | Home Phone | | + + + | Preferred Language | Unknown | + + + | Marital Status | Single | + + + | Jehovah'S Witness Affiliation | CHR | + + + [...] Krissy Rogers | BRADEN | [place] [address] | | + + + + + | Bay Rogers | ECON | Unknown | | + + + + + Care Team Providers + +------+ + | Care Buggy Operator Name | Role | Phone | + +------+ + | Jono Arambula | PCP | | + +------+ + Encounter Details +--------+ + + + + | Date | Type | Department | Care Team | Description | +--------+ + + + + | 08/01/ | Abstract | Dig[facility] | Clinic, | | | 2012 | | Center at [facility] [address] | Gastroenterology | | | | | [address] | | | | | | Mailcode: Center | | | | | | for Health and | | | | | | [facility] [address] | | | | | | [place], [place] | | | | | | [address] | | | | | | [phone] | | | +--------+ + + + [...] Manz[address] | | | | | | [place], [place] | | | | | | [address] | | | | | | [phone] | | | | | | | | +--------+---------+ + + + documented as of this encounter Visit Diagnoses Not on filedocumented in this encounter"
--- OUTSIDE RECORDS SUMMARY | ~2019-10-28 | XMS | Encounter Summary ---
Demographics + + + | Address | [address] | | | [place] [address] | + + + | Home Phone [...] Krissy Rogers | BRADEN | [place] [address] | | + + + + + | Bay Rogers | ECON | Unknown | | + + + + + Care Team Providers + +------+ + | Care Foreign Food Cook Specialty Name | Role | Phone | + [...] | | | | | Moraima Hernandez [place], | | | | | | [place] [address] | | | +--------+ + + + [...] | | 2019 | Visit | | [address] | | | | | | Patrizia Manzano | | | | | | [place], [place] | | | | | | [address] | | | | | | [phone] | | | | | | | [...] + + + | [facility] - | [address] | [place] [address] | | | IMMUNOGENETICS/TRANS | [address] | | | | [facility] | | | | + + + + + documented in this encounter Visit Diagnoses Not on filedocumented in this encounter"
--- OUTSIDE RECORDS SUMMARY | ~2019-10-28 | XMS | Encounter Summary ---
Demographics + + + | Address | [address] | | | [place] [address] | + + + | Home Phone [...] Krissy Rogers | BRADEN | [place] [address] | | + + + + + | Bay Rogers | ECON | Unknown | | + + + + + Care Team Providers + +------+ + | Care Engineer Fishing Vessel Name | Role | Phone | + [...] (OU) | | 2015 | Visit | [place] | | | | | | Photography at | | | | | | [address] | | | | | | [address] | | | | | | Eye [place], [facility] | | | | | | floor [place], [place] | | | | | | [address] | | | +--------+ + + + [...] [place] | | | | | | [place], [place] | | | | | | [address] | | | | | | [phone] | | | | | | | | +--------+---------+ + + + documented as of this encounter Visit Diagnoses + + | Diagnosis | + + | 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
--- OUTSIDE RECORDS SUMMARY | ~2019-10-28 | XMS | Encounter Summary ---
Demographics + + + | Address | [address] | | | [place] [address] | + + + | Home Phone | | + + + | Preferred Language | Unknown | + + + | Marital Status | Single | + + + | Caodaism Affiliation | CHR | + + + | Race | White | + + + | Ethnic Group | Not or | + + + Author + + + | Author | [facility] | + + + | Organization | [facility] | + + + | Address | Unknown | + + + | Phone | Unavailable | + + + Support + + + + + | Name | Relationship | Address | Phone | + + + + + | Krissy Rogers | BRADEN | [place] [address] | | + + + + + | Bay Rogers | ECON | Unknown | | + + + + + Care Team Providers + +------+ + | Care Numerical Control Machine Tool Operator Name | Role | Phone | [...] 10/20/ | Telephone-S | Preoperative | Phone, [facility] [address] | Pre-op evaluation | | 2008 | cheduled | Medicine Clinic at | [facility] | | | | | MPV 4th Floor Day | Road [place], [place] | | | | | Stay [address] | [address] | | | | | [address] | | | | | | Mailcode: [id number] | | | | | | [facility] | | | | | | [address] [place], [place] | | | | | | [address] | | | | | | [phone] | | | +--------+ + + + [...] Manz[address] | | | | | | [place], [place] | | | | | | [address] | | | | | | [phone] | | | | | | | | +--------+---------+ + + + documented as of this encounter Visit Diagnoses Not on filedocumented in this encounter"
--- OUTSIDE RECORDS SUMMARY | ~2019-10-28 | XMS | Encounter Summary ---
Demographics + + + | Address | [address] | | | [place] [address] | + + + | Home Phone [...] Krissy Rogers | BRADEN | [place] [address] | | + + + + + | Bay Rogers | ECON | Unknown | | + + + + + Care Team Providers + +------+ + | Care Managing Director Atlas Name | Role | Phone | + +------+ + | Jono Arambula | PCP | | + +------+ + Encounter Details +--------+ + + + + | Date | Type | Department | Care Team | Description | +--------+ + + + + | 10/13/ | Document-Sc | UNKNOWN DEPARTMENT | Unknown . | | | 2009 | anned | [address] [facility] | | | | | | [address] | | | | | | [place], [place] | | | | | | [address] | | | +--------+ + + + [...] | | 2019 | Visit | | [address] | | | | | | Patrizia Manzano | | | | | | [place], [place] | | | | | | [address] | | | | | | [phone] | | | | | | | | +--------+---------+ + + + documented as of this encounter Visit Diagnoses Not on filedocumented in this encounter"
--- OUTSIDE RECORDS SUMMARY | ~2019-10-28 | XMS | Encounter Summary ---
Demographics + + + | Address | [address] | | | [place] [address] | + + + | Home Phone [...] [place] | | | | | [address] | | + + + + + | Ellen Rogers | ECON | [address] | | | | | [place] | | + + + + + | Gisell Rogers | ECON | Unknown | | + + + + + Care Team Providers + +------+ + | Care Photo Intern Name | Role | Phone | + +------+ + PCP | Unavailable | + +------+ + Encounter Details +--------+ + + + + | Date | Type | Department | Care Team | Description | +--------+ + + + + | 04/26/ | Emergency | [facility] | [place] | Nausea alone | | 2010 | | MEDICAL CENTER | MD [address] | | | | | EMERGENCY CENTER | [address] [place], [place] | | | | | [address] [facility] | [address] | | | | | [place], [place] | [phone] | | | | | [address] | | | | | | [phone] | | | +--------+ + + + [...] [place] | | | | | | [address] | | | | | | | | +--------+---------+ + + + documented as of this encounter Visit Diagnoses + + | Diagnosis | + + | Nausea alone | + + documented in this encounter"
--- OUTSIDE RECORDS SUMMARY | ~2019-10-28 | XMS | Encounter Summary ---
Demographics + + + | Address | [address] | | | [place] [address] | + + + | Home Phone | | + + + | Preferred Language | Unknown | + + + | Marital Status | | + + + | Faith Affiliation | 1013 | + + + | Race | Unknown | + + + | Ethnic Group | Unknown | + + + Author + + + | Author | [facility] | | | and [place] | + + + | Organization | [facility] | | | and [place] | + + + | Address | Unknown | + + + | Phone | Unavailable | + + + Support + + + + + | Name | Relationship | Address | Phone | + + + + + | eDysi Montelongo | ECON | [address] | | | | | [address] | | | | | [address] | | + + + + + | Ellen Rogers | ECON | [address] | | | | | [place] | | + + + + + | Gisell Rogers | ECON | Unknown | | + + + + + Care Team Providers + +------+ + | Care Hose Tender Name | Role | Phone | + +------+ + | Lizbet Sellers MD | PCP | | + +------+ + Encounter Details +--------+---------+ + + + | Date | Type | Department | Care Team | Description | +--------+---------+ + + + | 10/09/ | Surgery | [facility] | Kris Barber MD | EGD | | 2017 | | MED CTR [facility] INTRA OP | [address] [facility] | | | | | [address] | [place], [place] | | | | | [place], [place] | [address] | | | | | [address] | [phone] | | | | | [phone] | | | +--------+---------+ + + + [...] + + + | Blood Pressure | 128/74 | 10/09/2016 12:00 PM | | | | | PDT | | + + + + + | Pulse | 64 | 10/09/2016 12:00 PM | | | | | PDT | | + + + + + | Temperature | 36.7 C (98.1 F) | 10/09/2016 11:53 AM | | | | | PDT | | + + + + + | Respiratory Rate | 16 | 10/09/2016 12:00 PM | | | | | PDT | | + + + + + | Oxygen Saturation | 92% | 10/09/2016 12:00 PM | | | | | PDT [...] antacid medicine. Ask your healthcare provider about qsxx-dmk-mfzddlw andp rescription medicines that may help. Ask about surgery, if needed. Surgery is a treatment choice for some people. Your health care provider can determine if surgery is an option for you. Date Last Reviewed: 01/22/2016 [employer] [address] [place] [id number]. All righ ts reserved. This information is [...] cannot be awakened Date Last Reviewed: 02/08/2016 [employer]. [address] [place] [address]. All righ ts reserved. This information is [...] the test. This includes: All prescription medicines Ptdg-enj-uqffbhh medicines such as aspirin or ibuprofen Street [...] heart or lung disease Date Last Reviewed: 11/16/[id number] [employer] [address] [place] [address]. All righ ts reserved. This information is [...] mouth 2 | | 0 | | 08/26/201 | | (PROGRAF) 1 mg | times [...] signed by: Kris Barber MD, 10/09/2016 11:07 [facility]THE[facility]ronically signed by Kris Barber MD at 10/09 [...] 2020 | Visit | | [address] [facility] | | | | | | [address] [place], [place] | | | | | | [address] | | | | | | | [...] | | | POC | | | [facility] | | | | | | MEDICAL [...] + + | [facility] | [address] | [place], [place] | [phone] | | [facility] | | [address] | | | - LABORATORY | | | | + + + + + Surgical Pathology Exam (10/09/2016 12:00 AM PDT) + + | Specimen | + + | | + + + + + | Narrative | Performed At | + + + | SPECIMEN(S): A DUODENAL BIOPSY SPECIMEN(S): B GASTRIC BIOPSY | OR PATHOLOGY | | SPECIMEN SOURCE: A. DUODENAL [...] technical and professional components were performed by Patient Home Monitoring | | | [facility], [address] [place] [address] | | | (Cooker Syrup: Evan Colon D.O.; IA#: [id number]). | | | Diagnostician: Tai Diggs MD [...] + | Diagnosis | + + | Gastro-esophageal reflux disease without esophagitis Esophageal reflux | + + | Nausea Nausea alone | + + documented in this encounter Administered Medications + +---------+ [...]
--- OUTSIDE RECORDS SUMMARY | ~2019-10-28 | XMS | Encounter Summary ---
Demographics + + + | Address | [address] | | | [place] [address] | + + + | Home Phone | | + + + | Preferred Language | Unknown | + + + | Marital Status | | + + + | Holiness Affiliation | 1013 | + + + [...] [address] | | | | | [address] | | + + + + + | Ellen Rogers | ECON | [address] | | | | | [place] | | + + + + + | Gisell Rogers | ECON | Unknown | | + + + + + Care Team Providers + +------+ + | Care Linoleum Tile Floor Layer Name | Role | Phone | + +------+ + | Lizbet Sellers MD | PCP | | + +------+ + Encounter Details +--------+ + + + + | Date | Type | Department | Care Team | Description | +--------+ + + + + | 06/25/ | Orders Only | [facility] | Jaren Pelayo MD | | | 2014 | | NEPHROLOGY [place] | [address] [place] | | | | | [address] [place] | [address] [place], [place] | | | | | [address] [place], [place] | [id number] | | | | | [address] | | | | | | [phone] | | | +--------+ + + + [...] [place] | | | | | | [address] | | | | | | | | +--------+---------+ + + + documented as of this encounter Procedures + +--------+ + + + | Procedure Name | Priori | Date/Time | Associated Diagnosis | Comments | | | ty | | | | + +--------+ + + + | EXTERNAL LAB: | Routin | 06/25/2014 | | Results for this | | TACROLIMUS LEVEL, | e | 12:00 AM | | procedure are in the | | LC-MS/MS | | PST | | results section. | + +--------+ + + + | BASIC METABOLIC | Routin | 06/25/2014 | | Results for this | | PANEL | e | 12:00 AM | | procedure are in the | | | | PST | | results section. | + +--------+ + + + documented in this encounter Results External Lab: Tacrolimus Level, LC-MS/MS (06/25/2014 12:00 AM PST) + +-------+ + + + | Component | Value | Ref Range | Performed | Pathologist | | | | | At | Signature | + +-------+ + + + | Tacrolimus | 5.5 | | EXTERNAL | | | Level [...] | | | + +---------+ + + Basic Metabolic Panel (06/25/2014 12:00 AM PST) + +---------+ + + + | Component | Value | Ref Range | Performed | Pathologist | | | | | At | Signature | + +---------+ + + + | Glucose, | 175 (A) | 70 - 100 mg/dL | EXTERNAL | | | Fasting | | | LAB | | + +---------+ + + + | BUN | 24 (A) | 6 - 23 mg/dL | EXTERNAL | | | | | | LAB | | + +---------+ + + + | Creatinine | 1.32 | 0.60 - 1.35 | EXTERNAL | | | | | mg/dL | LAB | | + +---------+ + + + | BUN/Creatin | 18.2 | 6.0 - 28.6 | EXTERNAL | | | ine Ratio | | | LAB | | + +---------+ + + + | Calcium | 9.0 | 8.4 - 10.1 | EXTERNAL | | | | | [...] + + + | Anion Gap | 14.3 | 7 - 21 mmol/L | EXTERNAL [...]
--- OUTSIDE RECORDS SUMMARY | ~2019-10-28 | XMS | Encounter Summary ---
Demographics + + + | Address | [address] | | | [place] [address] | + + + | Home Phone [...] [place] | | | | | [address] | | + + + + + | Ellen Greer | ECON | [address] | | | | | [place] | | + + + + + | Gisell Greer | ECON | Unknown | | + + + + + Care Team Providers + +------+ + | Care Preparer Name | Role | Phone | + +------+ + PCP | Unavailable | + +------+ + Encounter Details +--------+ + + + + | Date | Type | Department | Care Team | Description | +--------+ + + + + | 01/17/ | Hospital | [facility] | Jaren Pelayo MD | End stage renal | | 2009 | Encounter | [facility] | [address] [facility] | disease (HCC) | | | | CLINICAL DECISION | [address], [place] | | | | | [address] [facility] | [address] | | | | | [place] | | | | | | [address] | | | | | | [phone] | | | +--------+ + + + [...] [place] | | | | | | [address] | | | | | | | | +--------+---------+ + + + documented as of this encounter Procedures + +--------+ + + + | Procedure Name | Priori | Date/Time | Associated Diagnosis | Comments | | | ty | | | | + +--------+ + + + | IR INJECTION | Routin | 01/17/2010 | | Results for this | | DIALYSIS CIRCUIT W | e | 2:49 PM | | procedure are in the | | ANGIOPLASTY | | PDT | | results section. | + +--------+ + + + | IR INJECTION | Routin | 01/17/2010 | | Results for this | | DIALYSIS CIRCUIT | e | 2:49 PM | | procedure are in the | | | | PDT | | results section. 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 Male. With chronic kidney disease stage V presents with | | | decreasing KT over V. EXAMINATION Right brachia cephalic | | | fistulogram and angioplasty of the focal, concentric stenosis in | | | distal right cephalic vein using 7 mm x 4 cm balloon catheter. | | | MEDICATIONS: Isovue-200 29 cc, Heparin 4100 units intravenous, | | | Versed 1 mg intravenous, fentanyl 50-mcg intravenous. | | | Intra-procedure sedation time 11 minutes. The radiation dose 13 | | | mGray, Fluoroscopy time 1 minutes. Appropriate physiologic | | | monitoring, maintenance of adequate conscious sedation and | | | independent long-term supervision performed throughout the | | | procedure. PROCEDURE: Informed written consent obtained from | | | the patient after explaining the procedure, risks and alternatives. | | | Patient understood the discussion and expressed a wish to proceed. | | | Patient was placed supine on the x-ray table. The right arm prepped | | | in the usual sterile fashion. Right arm AV fistula was accessed | | | using micropuncture needle and exchanged for 4-Cymraes micropuncture | | | sheath. Initial fistula pressure was obtained and fistulogram | | | obtained from the right cubital fossa to the right atrium. Given | | | the focal, concentric, more than 80% stenosis involving distal right | | | cephalic vein, I decided to perform angioplasty of the venous lesion. | | | 4-Cymraes micropuncture sheath was exchanged for 6-Cymraes short | | | sheath over a 0.035, angled Glidewire. 7 mm x 4 cm balloon catheter | | | was advanced over the 0.035, angled Glidewire. Balloon was | | | positioned across stenosis in distal right cephalic vein and | | | angioplasty was performed. During inflation of the balloon across the | | | venous anastomosis Reflux evaluation of the arteriovenous anastomosis | | | obtained. Subsequently, balloon was deflated and a final | | | fistulogram obtained from the right cubital fossa to the right | | | atrium. Final fistula pressure and arterial pressures were | | | obtained. All catheters and wires then removed and hemostasis | | | obtained with manual pressure. No immediate procedural | | | complications. Patient tolerated the procedure well. FINDINGS | | | 1. Initial fistula pressure 49/36 mm Hg, arterial pressure 163/83 mm | | | Hg, final fistula pressure 39/28 mm Hg. 2. Right brachio | | | cephalic fistulogram shows focal, concentric, more than 80% stenosis | | | of the distal right cephalic vein with widely patent right | | | subclavian, right brachia cephalic vein and superior vena cava. | | | Arterial venous anastomoses is widely patent. 3. Successful | | | angioplasty of the focal stenosis involving distal right cephalic | | | vein using 7 mm x 4 cm balloon catheter with no residual anatomic | | | stenosis. IMPRESSION: 1. Successful right brachio cephalic | | | fistulogram and angioplasty of focal, more than 80% concentric | | | stenosis involving distal right cephalic vein with no residual | | | anatomic stenosis and good hemodynamic response. 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 Male. With chronic kidney disease stage V presents with | | decreasing KT over V. | | | | EXAMINATION | | | | Right brachia cephalic fistulogram and angioplasty of the focal, concentric | | stenosis in distal right cephalic vein using 7 mm x 4 cm balloon catheter. | | | | MEDICATIONS: | | | | | | Isovue-200 29 cc, Heparin 4100 units intravenous, Versed 1 mg intravenous, | | fentanyl 50-mcg intravenous. Intra-procedure sedation time 11 minutes. | | The radiation dose 13 mGray, Fluoroscopy time 1 minutes. Appropriate | | physiologic monitoring, maintenance of adequate conscious sedation and | | independent long-term supervision performed throughout the procedure. | | [...] | | micropuncture needle and exchanged for 4-Cymraes micropuncture sheath. | | Initial fistula pressure was obtained and fistulogram obtained from the | | right cubital fossa to the right atrium. Given the focal, concentric, | | more than 80% stenosis involving distal right cephalic vein, I decided to | | perform angioplasty of the venous lesion. 4-Cymraes micropuncture sheath | | was exchanged for 6-Cymraes short sheath over a 0.035, angled Glidewire. 7 | | mm x 4 cm balloon [...] FINDINGS | | 1. Initial fistula pressure 49/36 mm Hg, arterial pressure 163/83 mm | | Hg, final fistula pressure 39/28 mm Hg. | | 2. Right brachio cephalic fistulogram shows focal, concentric, more | | than 80% stenosis of the distal right cephalic vein with widely patent | | right subclavian, right brachia cephalic vein and superior vena cava. | | Arterial venous anastomoses is widely patent. | | 3. Successful angioplasty of the focal stenosis involving distal right | | cephalic vein using 7 mm x 4 cm balloon catheter with no residual anatomic | | stenosis. | | | | IMPRESSION: | | 1. Successful right brachio cephalic fistulogram and angioplasty of | | focal, more than 80% concentric stenosis involving distal right cephalic | | vein with no residual anatomic stenosis and good hemodynamic response. | | | | | + + IR Inj Dialysis Circuit (01/17/2010 2:49 PM PDT) + + | Specimen | + + | | + + + + + | Narrative | Performed At | + + + | [facility] [address] Ph: | | | Patient Name: WILSON GREER Date of : | | | 1970 Medical Record: [id number] Account: [id number] | | | Exam Date/Time: 01/17/2010 13:30 Ordering | | | Physician: JAREN PELAYO Order Detail: [id number] Exam Description: AV | | | FISTULAGRAM ACCESS | | | WILSON | | | W ZOEY AV FISTULAGRAM ACCESS 01/17/2010 1:30 PM HISTORY: 39 | | | years. Male. With chronic kidney disease stage V presents with | | | decreasing KT over V. EXAMINATION Right brachia cephalic | | | fistulogram and angioplasty of the focal, concentric stenosis in | | | distal right cephalic vein using 7 mm x 4 cm balloon catheter. | | | MEDICATIONS: Isovue-200 29 cc, Heparin 4100 units intravenous, | | | Versed 1 mg intravenous, fentanyl 50-mcg intravenous. | | | Intra-procedure sedation time 11 minutes. The radiation dose 13 | | | mGray, Fluoroscopy time 1 minutes. Appropriate physiologic | | | monitoring, maintenance of adequate conscious sedation and | | | independent long-term supervision performed throughout the | | | procedure. PROCEDURE: Informed written consent obtained from | | | the patient after explaining the procedure, risks and alternatives. | | | Patient understood the discussion and expressed a wish to proceed. | | | Patient was placed supine on the x-ray table. The right arm prepped | | | in the usual sterile fashion. Right arm AV fistula was accessed | | | using micropuncture needle and exchanged for 4-Cymraes micropuncture | | | sheath. Initial fistula pressure was obtained and fistulogram | | | obtained from the right cubital fossa to the right atrium. Given | | | the focal, concentric, more than 80% stenosis involving distal right | | | cephalic vein, I decided to perform angioplasty of the venous lesion. | | | 4-Cymraes micropuncture sheath was exchanged for 6-Cymraes short | | | sheath over a 0.035, angled Glidewire. 7 mm x 4 cm balloon catheter | | | was advanced over the 0.035, angled Glidewire. Balloon was | | | positioned across stenosis in distal right cephalic vein and | | | angioplasty was performed. During inflation of the balloon across the | | | venous anastomosis Reflux evaluation of the arteriovenous anastomosis | | | obtained. Subsequently, balloon was deflated and a final | | | fistulogram obtained from the right cubital fossa to the right | | | atrium. Final fistula pressure and arterial pressures were | | | obtained. All catheters and wires then removed and hemostasis | | | obtained with manual pressure. No immediate procedural | | | complications. Patient tolerated the procedure well. FINDINGS | | | 1. Initial fistula pressure 49/36 mm Hg, arterial pressure 163/83 mm | | | Hg, final fistula pressure 39/28 mm Hg. 2. Right brachio | | | cephalic fistulogram shows focal, concentric, more than 80% stenosis | | | of the distal right cephalic vein with widely patent right | | | subclavian, right brachia cephalic vein and superior vena cava. | | | Arterial venous anastomoses is widely patent. 3. Successful | | | angioplasty of the focal stenosis involving distal right cephalic | | | vein using 7 mm x 4 cm balloon catheter with no residual anatomic | | | stenosis. IMPRESSION: 1. Successful right brachio cephalic | | | fistulogram and angioplasty of focal, more than 80% concentric | | | stenosis involving distal right cephalic vein with no residual | | | anatomic stenosis and good hemodynamic response. Electronically | | | signed by Bishop Slater MD on 01/17/2010 2:43 PM | | + + + + + | Procedure Note | + + | Billy Butler Conversion - 12/15/2018 8:49 PM PDT | | [facility] | | [facility] [address] | | | | | | Patient Name: WILSON GREER | | Date of : 1970 | | Medical Record: [id number] | | Account: [id number] | | | | | | Exam Date/Time: 01/17/2010 13:30 | | Ordering Physician: JAREN PELAYO | | Order Detail: [id number] | | Exam Description: AV FISTULAGRAM ACCESS | | | | WILSON GREER | | AV FISTULAGRAM ACCESS | | 01/17/2010 1:30 PM | | | | HISTORY: | | 39 years. Male. With chronic kidney disease stage V presents with | | decreasing KT over V. | | | | EXAMINATION | | | | Right brachia cephalic fistulogram and angioplasty of the focal, concentric | | stenosis in distal right cephalic vein using 7 mm x 4 cm balloon catheter. | | | | MEDICATIONS: | | | | | | Isovue-200 29 cc, Heparin 4100 units intravenous, Versed 1 mg intravenous, | | fentanyl 50-mcg intravenous. Intra-procedure sedation time 11 minutes. | | The radiation dose 13 mGray, Fluoroscopy time 1 minutes. Appropriate | | physiologic monitoring, maintenance of adequate conscious sedation and | | independent long-term supervision performed throughout the procedure. | | [...] | | micropuncture needle and exchanged for 4-Cymraes micropuncture sheath. | | Initial fistula pressure was obtained and fistulogram obtained from the | | right cubital fossa to the right atrium. Given the focal, concentric, | | more than 80% stenosis involving distal right cephalic vein, I decided to | | perform angioplasty of the venous lesion. 4-Cymraes micropuncture sheath | | was exchanged for 6-Cymraes short sheath over a 0.035, angled Glidewire. 7 | | mm x 4 cm balloon [...] FINDINGS | | 1. Initial fistula pressure 49/36 mm Hg, arterial pressure 163/83 mm | | Hg, final fistula pressure 39/28 mm Hg. | | 2. Right brachio cephalic fistulogram shows focal, concentric, more | | than 80% stenosis of the distal right cephalic vein with widely patent | | right subclavian, right brachia cephalic vein and superior vena cava. | | Arterial venous anastomoses is widely patent. | | 3. Successful angioplasty of the focal stenosis involving distal right | | cephalic vein using 7 mm x 4 cm balloon catheter with no residual anatomic | | stenosis. | | | | IMPRESSION: | | 1. Successful right brachio cephalic fistulogram and angioplasty of | | focal, more than 80% concentric stenosis involving distal right cephalic | | vein with no residual anatomic stenosis and good hemodynamic response. | | | | | + + documented in this encounter Visit Diagnoses + + | Diagnosis | + + | End stage renal disease (HCC) End stage renal disease | + + documented in this encounter"
--- OUTSIDE RECORDS SUMMARY | ~2019-10-28 | XMS | Encounter Summary ---
Demographics + + + | Address | [address] | | | [place] [address] | + + + | Home Phone | | + + + | Preferred Language | Unknown | + + + | Marital Status | | + + + | Lutheran Affiliation | [id number] | + + + | Race | Unknown | + + + | Ethnic Group | Unknown | + + + Author + + + | Author | [facility] | | | and [place] | + + + | Organization | [facility] | | | and [place] | + + + | Address | Unknown | + + + | Phone | Unavailable | + + + Support + + + + + | Name | Relationship | Address | Phone | + + + + + | Deysi Montelongo | ECON | [address] | | | | | [facility] | | | | | [address] | | + + + + + | Ellen Rogers | ECON | [address] | | | | | [place] | | + + + + + | Gisell Rogers | ECON | Unknown | | + + + + + Care Team Providers + +------+ + | Care Food Service Agent Name | Role | Phone | + +------+ + | David Estrada MD | PCP | Unavailable | + +------+ + Encounter Details +--------+ + + + + | Date | Type | Department | Care Team | Description | +--------+ + + + + | 09/05/ | Abstract | [address] [place] | [facility], | | | 2012 | | GASTROENTEROLOGY | [address] | | | | | [address] [place] | [address] | | | | | [address] [place], [place] | [place], [place] | | | | | [address] | [address] | | | | | [phone] | | | +--------+ + + + [...] 2020 | Visit | | [address] [facility] | | | | | | [address] [place] | | | | | | [address] | | | | | | | | +--------+---------+ + + + documented as of this encounter Visit Diagnoses Not on filedocumented in this encounter"
--- OUTSIDE RECORDS SUMMARY | ~2019-10-28 | XMS | Encounter Summary ---
Demographics + + + | Address | [address] | | | [place] [address] | + + + | Home Phone [...] Krissy Rogers | BRADEN | [place] [address] | | + + + + + | Bay Rogers | ECON | Unknown | | + + + + + Care Team Providers + +------+ + | Care Student Name | Role | Phone | + [...] Type | | 2008 | Visit | [facility] at | [address] | II, Uncontrolled | | | | [facility] [address] | ([facility]); Proliferative | | | | [address] | [place], [place] | Diabetic | | | | Eye [place] | [address] | Retinopathy ([facility]); | | | | floor [place], [place] | [phone] | Vision, Loss, | | | | [...] | | 2019 | Visit | | [address] | | | | | | [address] | | | | | | [place], [place] | | | | | | [address] | | | | | | [phone] | | | | | | | [...] | | uncontrolled(250.52) ([facility]) Type II or unspecified type diabetes mellitus with | | ophthalmic manifestations, uncontrolled | + + | Proliferative diabetic retinopathy(362.02) Proliferative diabetic retinopathy | + + | Vision, loss, sudden Sudden visual loss | + + | Unspecified retinal detachment | + + documented in this encounter"
--- OUTSIDE RECORDS SUMMARY | ~2019-10-28 | XMS | Encounter Summary ---
Demographics + + + | Address | [address] | | | [place] [address] | + + + | Home Phone [...] Author + + + | Author | [facility] | + + + | Organization | [facility] | + + + | Address | Unknown | + + + | Phone | Unavailable | + + + Support + + + + + | Name | Relationship | Address | Phone | + + + + + | Krissy Rogers | BRADEN | [place] [address] | | + + + + + | Bay Rogers | ECON | Unknown | | + + + + + Care Team Providers + +------+ + | Care Due Diligence Coordinator Name | Role | Phone | [...] [address] | | | | | | [place], [place] | | | | | | [address] | | | +--------+ + + + [...] | | 2019 | Visit | | [address] | | | | | | [address] | | | | | | [place], [place] | | | | | | [address] | | | | | | [phone] | | | | | | | [...] | | | | | | [id number]):- Negative | | | | | | [...] necessary | | | | | | [facility] | | | | | | and [...] | | | | | Received in [facility] | | | | | | [...] | + + + + + | [facility] | [address] | [place] [address] | | | PATHOLOGY | [address] | | | + + + + + documented in this encounter Visit Diagnoses Not on filedocumented in this encounter"
[~2019-10-28 15:09] MED LIST: ATORVASTATIN CA40 MG PO; CLOPIDOGREL75 MG PO; GABAPENTIN300 MG PO; HYDROCHLOROTH12.5 M1 PO; LEVOTHYROXINE112 MCG PO; LOSARTAN POTASS50 MG PO; METOPROLOL TAR100 MG PO; MYCOPHENOLATE PO; PROGRAF1 MG PO; SENSIPAR30 MG PO; SLOW-MAG71.5 MG PO
== END 2019-10-28 16:30 | disposition home or self-care (01) ==
LOC: ED 15:09
DX: R60.0 Localized edema (principal); E11.42 Type 2 diabetes mellitus with diabetic polyneuropathy; Z88.0 Allergy status to penicillin; Z79.899 Other long term (current) drug therapy; Z88.8 Allergy status to other drugs, medicaments and biological substances
CPT/HCPCS: 80048; 85025; 93971; 99284-25

== ENCOUNTER 2021-06-17 11:04 | Emergency (ER) | payer MEDICARE, OTHER ==
[~2021-06-17] VITALS: Ht 182.9 cm; Wt 104.3 kg
[2021-06-17] MEDS ORDERED: HYDROCODON-ACE1 EA11 PO (11:50)
== END 2021-06-17 12:00 | disposition home or self-care (01) ==
LOC: ED 11:04
DX: K08.89 Other specified disorders of teeth and supporting structures (principal); E11.40 Type 2 diabetes mellitus with diabetic neuropathy, unspecified; Z88.0 Allergy status to penicillin; Z88.5 Allergy status to narcotic agent; Z88.8 Allergy status to other drugs, medicaments and biological substances; Z79.899 Other long term (current) drug therapy
CPT/HCPCS: 99282; A9270

== ENCOUNTER 2021-06-19 06:07 | Emergency (ER) | payer MEDICARE, OTHER ==
[~2021-06-19] VITALS: Ht 182.9 cm; Wt 104.3 kg
[~2021-06-19 06:07] MED LIST changes: +HYDROCODON-ACE1 EA11 PO
[2021-06-19] MEDS ORDERED: CLINDAMYCIN HC300 MG PO (06:24)
[2021-06-19] MEDS ORDERED: ONDANSETRON ODT8 MG PO (07:57)
[2021-06-19] MEDS ORDERED: DILAUDID2 MG PO (07:57)
[2021-06-19] MEDS ORDERED: REGLAN10 MG PO (10:46)
== END 2021-06-19 12:21 | disposition home or self-care (01) ==
LOC: ED 06:07
DX: K29.00 Acute gastritis without bleeding (principal); K08.89 Other specified disorders of teeth and supporting structures; R10.9 Unspecified abdominal pain; Z94.0 Kidney transplant status; E11.9 Type 2 diabetes mellitus without complications; Z88.0 Allergy status to penicillin; Z88.5 Allergy status to narcotic agent; Z88.8 Allergy status to other drugs, medicaments and biological substances; Z79.899 Other long term (current) drug therapy
CPT/HCPCS: 36415; 80053; 81001; 83690; 85025; 96374; 96375; 96376; 99284-25; J1170; J1720; J1790; J2405; J7030; J7121

== ENCOUNTER 2022-05-01 19:29 | Emergency (ER) | payer MEDICARE, OTHER ==
[~2022-05-01] VITALS: Ht 182.9 cm; Wt 105.0 kg
[~2022-05-01 19:29] MED LIST changes: +CLINDAMYCIN HC300 MG PO; +DILAUDID2 MG PO; +ONDANSETRON ODT8 MG PO; +REGLAN10 MG PO
--- OUTSIDE RECORDS SUMMARY | 2022-05-01 19:32 | XMS ---
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 EMateus VISIT COUNT (12 MO.) 3 MYCHAL Rosado TOTAL 3 NOTE: Visits indicate total known visits. ED/UCC VISIT TRACKING (12 MO.) 05/01/2022 19:29 MY[facility]AL [facility] [place] TYPE: Emergency COMPLAINT: - BLOOD SUGAR PROBLEM 06/19/2021 06:07 MY[facility]AL [place] TYPE: Emergency COMPLAINT: - DIABETIC PROBLEM DIAGNOSES: - Other specified disorders of teeth and supporting structures - Allergy status to narcotic agent - Type 2 diabetes mellitus without complications - Kidney transplant status - Nausea with vomiting, unspecified - Unspecified abdominal pain - Acute gastritis without bleeding - Allergy status to penicillin - Allergy status to other drugs, medicaments and biological substances - Other detention (current) drug therapy 06/17/2021 11:05 MYCHAL Zhang [place] TYPE: Emergency COMPLAINT: - DENTAL ISSUE DIAGNOSES: - Allergy status to narcotic agent - Allergy status to penicillin - Other specified disorders of teeth and supporting structures - Other detention (current) drug therapy - Type 2 diabetes mellitus with diabetic neuropathy, unspecified - Allergy status to other drugs, medicaments and biological substances INPATIENT VISIT TRACKING (12 MO.) No inpatient visits to display in this time frame [email or web address]
== END 2022-05-01 22:55 | disposition home or self-care (01) ==
LOC: ED 19:29
DX: E11.649 Type 2 diabetes mellitus with hypoglycemia without coma (principal); N28.9 Disorder of kidney and ureter, unspecified; E11.51 Type 2 diabetes mellitus with diabetic peripheral angiopathy without gangrene; E11.42 Type 2 diabetes mellitus with diabetic polyneuropathy; Z94.0 Kidney transplant status; Z88.0 Allergy status to penicillin; Z88.5 Allergy status to narcotic agent; Z88.8 Allergy status to other drugs, medicaments and biological substances; Z79.899 Other long term (current) drug therapy; Z79.01 Long term (current) use of anticoagulants; S01.81XA Laceration without foreign body of other part of head, initial encounter; W19.XXXA Unspecified fall, initial encounter
CPT/HCPCS: 36415; 70450; 80053; 82803; 85025; 96361; 96374; 96375; 99285-25; J1610; J3010; J7121